=== PATIENT | male | born 1970 | race Caucasian/White ===

== ENCOUNTER 2022-11-12 02:05 | Emergency (ER) | payer OTHER, SELFPAY ==
[2022-11-12 02:13] VITALS: BP 128/97; PULSE 86; RESP 16; TEMP 36.6; O2SAT 98; BMI 28.7
--- NOTE | 2022-11-12 02:24 | ED_ITS ---
HPI - Dental/Oral General Chief complaint: Dental/Oral Stated complaint: DENTAL PAIN Time Seen by Provider: 11/12/22 02:21 Source: patient Mode of arrival: walk-in Limitations: no limitations History of Present Illness HPI Narrative: patient presents complaining of dental pain. ongoing for past week. increased pain this AM. Even rolling on the side of his face it hurts. neg fever or chills. No associated nausea. Teeth map: 1. Onset (ago): day(s) Related Data Allergies Allergy/AdvReac Type Severity Reaction Status Date / Time No Known Drug Allergies Allergy Verified 11/12/22 02:18 Review of Systems ROS Status of ROS 10 or more systems reviewed and unremarkable except as noted in history and below [facility] Medical History (Updated 11/12/22 @ 02:29 by Truman Katz MD) Surgical History (Updated 11/12/22 @ 02:23 by Diana Mcghee) Social History Smoking status: Current every day smoker Exam Constitutional Vital Signs - 24 hr 11/12/22 02:13 Temperature 97.8 F Pulse Rate [Monitor] 86 Respiratory Rate 16 Blood Pressure [Left Arm] 128/97 H Pulse Oximetry 98 Oxygen Delivery Method Room Air Common normals: no apparent distress, average body habitus and oriented x3 HENMT Common normals: normocephalic and head/scalp atraumatic Respiratory Common normals: normal respiratory effort, no retractions, no use of accessory muscles and clear to auscultation bilaterally Cardio Common normals: no JVD, regular rate, regular rhythm, S1 normal heart sound and S2 normal heart sound GI Common normals: Normal to inspection, nondistended, normoactive bowel sounds present, soft to palpation and non-tender Extremity Common normals: normal to inspection and full ROM Neuro Common normals: oriented x3, CN's II-XII intact bilaterally, moves all extremities and no focal motor deficits Psych Appearance: grossly normal Course Vital Signs Vital signs: Vital Signs Temperature 97.8 F 11/12/22 02:13 Pulse Rate 86 11/12/22 02:13 Respiratory Rate 16 11/12/22 02:13 Blood Pressure 128/97 H 11/12/22 02:13 Pulse Oximetry 98 11/12/22 02:13 Oxygen Delivery Method Room Air 11/12/22 02:13 Temperature 97.8 F 11/12/22 02:13 Pulse Rate 86 11/12/22 02:13 Respiratory Rate 16 11/12/22 02:13 Blood Pressure 128/97 H 11/12/22 02:13 Pulse Oximetry 98 11/12/22 02:13 Oxygen Delivery Method Room Air 11/12/22 02:13 MDM - Dental/Oral MDM Narrative Medical decision making narrative: patient presents with worsening dental pain. tooth is mildly loose and is moderately tender. No obvious swelling. Will treat as an early dental abscess with Augmentin and recommend he follow up with his dentist Discharge Plan Discharge Chief Complaint: Dental/Oral Clinical Impression: Dental abscess Patient Disposition: Home, Self-Care Mode of Transportation: Private Vehicle Instructions: Dental Abscess (ED) Additional Instructions: follow up with your dentist this week Stand Alone Forms: Portal Instructions Discharge Date/Time: 11/12/22 02:54
[2022-11-12] MEDS: HYDROCODONE/ACETAMINOPHEN 5-325 MG TABLET 4 TAB PO (02:44)
== END 2022-11-12 02:54 | disposition home or self-care (01) ==
PROVIDERS: Emergency Provider Internal Medicine
DX: K04.7 Periapical abscess without sinus (principal); F17.210 Nicotine dependence, cigarettes, uncomplicated
CPT/HCPCS: 99284

== ENCOUNTER 2022-12-04 22:40 | Emergency (ER) | payer OTHER, SELFPAY ==
[2022-12-04] VITALS (9 sets, daily range): BP systolic 129–146; BP diastolic 82–103; PULSE 94–114; RESP 9–23; O2SAT 96–99; BMI 27.9
--- NOTE | 2022-12-04 22:48 | ED_ITS ---
HPI - Chest Pain General Chief Complaint: Chest Pain Stated Complaint: CHEST PAIN Time Seen by Provider: 12/04/22 22:48 Source: patient Mode of arrival: walk-in Limitations: no limitations History of Present Illness HPI narrative: Patient process the emergency department complaining of chest pain. Patient states he had left-sided chest pain today when he was at work. 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 This is the 2nd time that he has chest pain. Patient states the pain occurred this morning when he got up and lasted 20 minutes and went away on its own. pain is not related to exertion when he was at work he developed it again. He thinks is under a lot of stress at work. He denied any nausea, vomiting, diarrhea, constipation, abdominal pain. He denies any shortness of breath, palpitations, dizziness and lightheadedness. He denies any paresthesias, or weakness. Patient has a history of mini stroke so he takes an aspirin daily. He Related Data Allergies Allergy/AdvReac Type Severity Reaction Status Date / Time No Known Drug Allergies Allergy Verified 11/12/22 02:18 Review of Systems ROS Status of ROS 10 or more systems reviewed and unremarkable except as noted in history and below [facility] Medical History (Updated 12/05/22 @ 01:40 by Rebecca Canicno MD) Surgical History (Updated 11/12/22 @ 02:23 by Diana Mcghee) Social History Smoking status: Current every day smoker Exam Narrative Exam Narrative: Nurses notes and vital signs reviewed and patient is not hypoxic. General: Nontoxic, Well-appearing and in no apparent distress. Skin: Warm, dry, no pallor noted. No Rash Head: Normocephalic, atraumatic. Neck: Supple, non-tender. Eye: Pupils are equal, round and EOMI. No scleral icterus. Ears, Nose, Mouth, and Throat: TM clear, no posterior oropharynx erythema or nasal mucosal hypertrophy, uvula is mid-line Oral mucosa is moist Cardiovascular: Regular Rate and Rhythm without murmur, gallop or rub. Respiratory: No accessory muscle use or respiratory distress. Lungs are clear to auscultation, no wheezing, rales or rhonchi Chest Wall: no tenderness Back: No midline thoracic or lumbar vertebral tenderness. No CVA tenderness Musculoskeletal: normal ROM, no calf or popliteal tenderness, no lower extremity edema/swelling GI: Abdomen is soft, non-distended. Normal bowel sounds. No masses appreciated. No tenderness to palpation. No rebound, guarding, or rigidity noted. Neurological: A&O x4. No cranial nerve dysfunction observed. No truncal ataxia. Moves all extremities. Sensation intact. Psychiatric: Cooperative and interactive. Normal mood and affect. Constitutional Vital Signs, click to edit/add: Last Vital Signs Pulse 96 H 12/05/22 01:40 Resp 16 12/05/22 01:40 BP 152/97 H 12/05/22 01:30 Pulse Ox 79 L 12/05/22 01:40 Course Vital Signs Vital signs: Vital Signs Pulse Rate 114 H 12/04/22 22:44 Respiratory Rate 16 12/04/22 22:44 Blood Pressure 145/100 H 12/04/22 22:44 Pulse Oximetry 98 12/04/22 22:44 Pulse Rate 96 H 12/05/22 01:40 Respiratory Rate 16 12/05/22 01:40 Blood Pressure 152/97 H 12/05/22 01:30 Pulse Oximetry 79 L 12/05/22 01:40 MDM - Chest Pain MDM Narrative Medical decision making narrative: Patient had an IV established. EKG showed a sinus rhythm without any acute ischemic changes. Chest x-ray is unremarkable. Patient had 2 troponins done 2 hours apart which did not show at [facility]. Patient's heart score is 3. Discussed with patient the need to have a stress test done. The patient states he wants to go home and does not want to be hospitalized to have a stress test Center patient. He states he prefers to go home and follow up with his primary care doctor. Patient understands that we have not ruled out heart disease. He is to take an aspirin daily and return to emergency department if any other symptoms develop. At this time the patient is without objective evidence of an acute process requiring hospitalization or inpatient management. The patient has remained hemodynamically stable. No additional indication for emergent studies at this time. I answered all questions. Discussed discharge instructions including standard anticipatory guidance and what should prompt a return to the emergency department, including if they get worse are not getting better or develops any new or concerning symptoms. I've given them specific time frame in which to follow-up, and who to follow-up with. The patient demonstrates understanding. Patient is nontoxic and stable for discharge with outpatient follow-up. This note was created with the assistance of a speech recognition program. Although the intention is to generate documents that actually reflects the content of the visit, no guarantees can be provided that every mistake has been identified and corrected by editing. Differential Diagnosis Differential diagnosis: Likely pneumothorax, atypical chest pain, st elevation myocardial infarction, costochondritis and chest pain Medical Records Data Attestation: I reviewed the patient's medical records. Lab Data Attestation: I reviewed the patient's lab results. Labs: Lab Results 12/04/22 12/05/22 Range/Units 22:56 00:49 WBC 9.9 (4.0-11.0) 10^3/uL RBC 5.18 (4.70-6.10) 10^6/uL Hgb 15.8 (14.0-18.0) g/dL Hct 45.4 (42.0-54.0) % MCV 87.6 (80.0-94.0) fL MCH 30.5 (25.9-34.0) pg MCHC 34.8 (29.9-35.2) g/dL RDW 12.4 (11.0-15.0) % Plt Count 205 (150-450) 10^3/uL MPV 9.6 (9.5-13.5) fL Neut % (Auto) 58.6 (43.0-75.0) % Lymph % (Auto) 32.4 (20.5-60.0) % [place] % (Auto) 6.0 (1.7-12.0) % Eos % (Auto) 2.0 (0.9-7.0) % Baso % (Auto) 0.6 (0.2-2.0) % Neut # (Auto) 5.8 (1.4-6.5) 10^3/uL Lymph # (Auto) 3.2 (1.2-3.8) 10^3/uL [place] # (Auto) 0.6 (0.3-0.8) 10^3/uL Eos # (Auto) 0.2 (0.0-0.7) 10^3/uL Baso # (Auto) 0.1 (0.0-0.1) 10^3/uL Abs Immat Gran (auto) 0.04 H (0.00-0.03) 10^3/uL Imm/Tot Granulo (auto) 0.4 (0.0-0.5) % PT 9.6 (9.0-11.6) sec INR <0.93 APTT 27.7 (22.3-36.2) sec Sodium 141 (136-145) mmol/L Potassium 3.5 (3.5-5.1) mmol/L Chloride 103 (98-107) mmol/L Carbon Dioxide 27.2 (21.0-32.0) mmol/L Anion Gap 14.3 BUN 15.0 (7.0-18.0) mg/dL Creatinine 1.27 (0.70-1.30) mg/dL Est GFR ( Amer) >60 (>=60) Est GFR (Non-Af Amer) 59 L (>=60) BUN/Creatinine Ratio 11.8 Glucose 135 H (74-106) mg/dL Calcium 9.6 (8.5-10.1) mg/dL Total Bilirubin 0.5 (0.2-1.0) mg/dL AST 32 (15-37) U/L ALT 22 (16-63) U/L Alkaline Phosphatase 85 (46-116) U/L Troponin I High Sens 4.3 4.8 (4.0-76.1) pg/mL Total Protein 8.1 (6.4-8.2) g/dL Albumin 4.4 (3.4-5.0) g/dL Globulin 3.7 g/dL Albumin/Globulin Ratio 1.2 ECG Data Attestation: I personally reviewed and interpreted this ECG as follows: Heart Score History: Slightly/Non-Suspicious ECG: Normal Age: >45-<65 years Risk Factors: >3 Risk Factors/ HX of CAD:2 Troponin: <Normal Limit Total Heart Score Recommendations & Risks:: 3 Discharge Plan Discharge Chief Complaint: Chest Pain Clinical Impression: Chest pain Patient Disposition: Home, Self-Care Time of Disposition Decision: 01:39 Condition: Good Mode of Transportation: Private Vehicle Instructions: Chest Pain (ED) Stand Alone Forms: Portal Instructions Referrals: Physician,Non-Staff, MD [Primary Care Provider] - 1 week Discharge Date/Time: 12/05/22 01:50
--- NOTE | 2022-12-04 22:49 | XR_ITS ---
[address] [address] Patient Name: GENE DE LA PAZ MRN: [id number] date: 1970 Sex: M Assigned Patient Location: ER Current Patient Location: ER Accession/Order Number: [id number] Exam Date: 12/04/2022 22:50 Report Date: 12/04/2022 23:07 At the request of: ADAM THOMPSON Procedure: XR chest 1V EXAMINATION: XR chest 1V HISTORY: Chest pain COMPARISON: None. TECHNIQUE: PA and lateral chest x-rays FINDINGS: The lung parenchyma is free of consolidation or infiltrate. No pneumothorax or pleural effusion. The cardiac, mediastinal and hilar contours are normal. The visualized osseous structures exhibit no gross abnormality. XR/XR chest 1V IMPRESSION: No acute cardiopulmonary abnormality. Electronically authenticated by: DAYNA LANDERS Date: 12/04/2022 23:07
--- NOTE | 2022-12-04 22:49 | ECG_ITS ---
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
[2022-12-04 23:05] LABS: Basophils Absolute Auto 0.1 10^3/uL (0.0-0.1); Basophils Percent Auto 0.6 % (0.2-2.0); Eosinophils Absolute Auto 0.2 10^3/uL (0.0-0.7); Hematocrit 45.4 % (42.0-54.0); Hemoglobin 15.8 g/dL (14.0-18.0); Immature Granulocytes Abs Auto 0.04 10^3/uL (0.00-0.03); Immature Granulocytes Pct Auto 0.4 % (0.0-0.5); Lymphocytes Absolute Auto 3.2 10^3/uL (1.2-3.8); Lymphocytes Percent Auto 32.4 % (20.5-60.0); Mean Corpuscular HGB Conc 34.8 g/dL (29.9-35.2); Mean Corpuscular Hemoglobin 30.5 pg (25.9-34.0); Mean Corpuscular Volume 87.6 fL (80.0-94.0); Mean Platelet Volume 9.6 fL (9.5-13.5); Monocytes Absolute Auto 0.6 10^3/uL (0.3-0.8); Neutrophils Absolute Auto 5.8 10^3/uL (1.4-6.5); Neutrophils Percent Auto 58.6 % (43.0-75.0); Platelet Count 205 10^3/uL (150-450); Red Blood Count 5.18 10^6/uL (4.70-6.10); Red Cell Distribution Width 12.4 % (11.0-15.0); White Blood Count 9.9 10^3/uL (4.0-11.0)
[2022-12-04 23:18] LABS: Alanine Aminotransferase 22 U/L (16-63); Albumin Globulin Ratio 1.2; Albumin Level 4.4 g/dL (3.4-5.0); Alkaline Phosphatase 85 U/L (46-116); Anion Gap 14.3; Aspartate Amino Transferase 32 U/L (15-37); BUN Creatinine Ratio 11.8; Bilirubin Total 0.5 mg/dL (0.2-1.0); Calcium 9.6 mg/dL (8.5-10.1); Carbon Dioxide 27.2 mmol/L (21.0-32.0); Chloride 103 mmol/L (98-107); Estimated GFR (African America >60 (>=60); Estimated GFR (Non-African Ame 59 (>=60); Globulin 3.7 g/dL; Glucose 135 mg/dL (74-106); Potassium 3.5 mmol/L (3.5-5.1); Sodium 141 mmol/L (136-145); Total Protein 8.1 g/dL (6.4-8.2)
[2022-12-04 23:19] LABS: Partial Thromboplastin Time 27.7 sec (22.3-36.2); Prothrombin Time 9.6 sec (9.0-11.6)
[2022-12-04 23:20] LABS: INR <0.93
[2022-12-04 23:21] LABS: Troponin I High Sensitivity 4.3 pg/mL (4.0-76.1)
[2022-12-04] MEDS: 0.9 % SODIUM CHLORIDE 1,000 ML 1000 ML IV (23:57)
[2022-12-05] VITALS (12 sets, daily range): BP systolic 144–166; BP diastolic 91–106; PULSE 89–98; RESP 9–23; O2SAT 79–99
[2022-12-05 01:17] LABS: Troponin I High Sensitivity 4.8 pg/mL (4.0-76.1)
--- NOTE | 2022-12-05 06:52 | PC.NURSE ---
recorded oxygen saturation of 79 inaccurate, unstable wave form. oxygen saturation at discharge 98% on room air
== END 2022-12-05 01:50 | disposition home or self-care (01) ==
PROVIDERS: Emergency Provider Emergency Medicine
DX: R07.9 Chest pain, unspecified (principal); F17.210 Nicotine dependence, cigarettes, uncomplicated; Z86.73 Personal history of transient ischemic attack (TIA), and cerebral infarction without residual deficits; Z79.82 Long term (current) use of aspirin
CPT/HCPCS: 36415; 71045; 80053; 84484; 85025; 85610; 85730; 93005; 99285

== ENCOUNTER 2023-03-19 08:47 | Emergency (ER) | payer OTHER, SELFPAY ==
[2023-03-19 08:49] VITALS: BP 159/96; PULSE 88; RESP 18; TEMP 36.8; O2SAT 99; BMI 23.3
--- NOTE | 2023-03-19 10:06 | CT_ITS ---
The [address] [address] Patient Name: GENE DE LA PAZ MRN: [id number] date: 1970 Sex: M Assigned Patient Location: ER Current Patient Location: ER Accession/Order Number: [id number] Exam Date: 03/19/2023 10:27 Report Date: 03/19/2023 11:05 At the request of: YUN TREVIZO Procedure: CT soft tissue neck w con EXAM: CT soft tissue neck w con HISTORY: neck pain COMPARISON: None. TECHNIQUE: CT was obtained through the neck following administration of intravenous contrast material. Sagittal and coronal reformats were acquired. Dose reduction techniques were achieved by using automated exposure control and/or adjustment of mA and/or kV according to patient size and/or use of iterative reconstruction technique. FINDINGS: The airway is patent. Epiglottis is normal. Lung apices are clear. No focal fluid collection within the neck. The bilateral parotid glands, submandibular glands, and thyroid gland are unremarkable. The vasculature within the neck opacifies normally. Stranding about the bilateral carotid bulbs and proximal internal carotid arteries. Stranding and thickening of the left external carotid artery with noncalcified plaque of the left external carotid artery with 57% stenosis The pneumatized portions of the skull are clear. Right maxillary posterior most molar, impacted, with dental caries. There are mild degenerative changes of the spine most notably with posterior disc/osteophyte complex at C4-C5 with at least mild spinal canal stenosis and mild left foraminal stenosis. CT/CT soft tissue neck w con IMPRESSION: 1. Inflammatory stranding about the bilateral carotid arteries most notably at the carotid bifurcation. 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 2. Left external carotid artery 57% stenosis. 3. No focal fluid collection, mass, or lymphadenopathy identified within the neck. 4. Degenerative changes of the cervical spine most notably at C4-C5 with at least mild spinal canal stenosis and mild left foraminal stenosis Electronically authenticated by: MEG SULLIVAN Date: 03/19/2023 11:05
--- NOTE | 2023-03-19 10:06 | ED_ITS ---
HPI - Neck Pain/Injury General Chief Complaint: Neck Pain/Injury Stated Complaint: NECK PAIN Time Seen by Provider: 03/19/23 09:56 Source: patient Mode of arrival: walk-in Limitations: no limitations History of Present Illness HPI Narrative: patient here back pain. He is afraid have a smoker at least one pack cigarettes a day. He's not lost his voice. He is not a shortness of breath or difficulty swallowing. He has no radiculopathy in his upper left extremity. He had a carotid ultrasound done about eight months ago at a different facility. He's not had a CT scan. He's not had any weight loss. He says he can pinpoint the area is in the lower anterior border of the sternocleidomastoid on the left side. He does not any history of thyroid disease. He's otherwise no complaints today. Related Data Home Medications Medication Instructions Recorded Confirmed atorvastatin 40 mg tablet 40 mg PO DAILY 03/19/23 03/19/23 buspirone 10 mg tablet 10 mg PO DAILY 03/19/23 03/19/23 dapagliflozin propanediol 10 mg 10 mg PO DAILY 03/19/23 03/19/23 tablet (Farxiga) gabapentin 600 mg tablet 600 mg PO Q12H PRN pain 03/19/23 03/19/23 hydrochlorothiazide 25 mg tablet 25 mg PO DAILY 03/19/23 03/19/23 insulin aspart U-100 100 unit/mL 7 unit subcut DAILY 03/19/23 03/19/23 subcutaneous solution insulin glargine 100 unit/mL (3 unit subcut .meals 03/19/23 mL) subcutaneous pen (Lantus Solostar U-100 Insulin) lisinopril 5 mg tablet 5 mg PO DAILY 03/19/23 03/19/23 metoprolol succinate 25 mg 25 mg PO DAILY 03/19/23 03/19/23 tablet,extended release 24 hr ropinirole 0.25 mg tablet 0.25 mg PO DAILY 03/19/23 03/19/23 tizanidine 4 mg tablet 4 mg PO DAILY PRN pain 03/19/23 03/19/23 Allergies Allergy/AdvReac Type Severity Reaction Status Date / Time No Known Drug Allergies Allergy Verified 11/12/22 02:18 [facility] Medical History (Updated 11/07/23 @ 12:19 by Sathish Justin MD) Diabetes ?E11.9 - Type 2 diabetes mellitus without complications (ICD-10) Surgical History (Updated 11/12/22 @ 02:23 by Diana Mcghee) History of appendectomy ?Z90.49 - Acquired absence of other specified parts of digestive tract (ICD- 10) History of cholecystectomy ?Z90.49 - Acquired absence of other specified parts of digestive tract (ICD- 10) History of kidney surgery ?Z98.890 - Other specified postprocedural states (ICD-10) Social History Smoking status: Current every day smoker Exam Constitutional Vital Signs, click to edit/add: Last Vital Signs Temp 98.2 F 03/19/23 08:49 Pulse 88 03/19/23 08:49 Resp 18 03/19/23 08:49 BP 159/96 H 03/19/23 08:49 Pulse Ox 99 03/19/23 08:49 O2 Del Method Room Air 03/19/23 08:49 Course Vital Signs Vital signs: Vital Signs Temperature 98.2 F 03/19/23 08:49 Pulse Rate 88 03/19/23 08:49 Respiratory Rate 18 03/19/23 08:49 Blood Pressure 159/96 H 03/19/23 08:49 Pulse Oximetry 99 03/19/23 08:49 Oxygen Delivery Method Room Air 03/19/23 08:49 Temperature 98.2 F 03/19/23 08:49 Pulse Rate 88 03/19/23 08:49 Respiratory Rate 18 03/19/23 08:49 Blood Pressure 159/96 H 03/19/23 08:49 Pulse Oximetry 99 03/19/23 08:49 Oxygen Delivery Method Room Air 03/19/23 08:49 Discharge Plan Discharge Chief Complaint: Neck Pain/Injury 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 Patient Disposition: Home, Self-Care Time of Disposition Decision: 12:19 Prescriptions / Home Meds: No Action atorvastatin 40 mg tablet 40 mg PO DAILY buspirone 10 mg tablet 10 mg PO DAILY Farxiga 10 mg tablet 10 mg PO DAILY gabapentin 600 mg tablet 600 mg PO Q12H PRN (Reason: pain) hydrochlorothiazide 25 mg tablet 25 mg PO DAILY lisinopril 5 mg tablet 5 mg PO DAILY metoprolol succinate 25 mg tablet extended release 24 hr 25 mg PO DAILY ropinirole 0.25 mg tablet 0.25 mg PO DAILY tizanidine 4 mg tablet 4 mg PO DAILY PRN (Reason: pain) insulin glargine [Lantus Solostar U-100 Insulin] 100 unit/mL (3 mL) insulin pen SUBCUT .meals insulin aspart U-100 100 unit/mL solution 7 unit subcut DAILY Instructions: Chronic Neck Pain (DC) Additional Instructions: use [id number] NSAIDs on a limited basis. Follow-up to primary care doctor with your CT report today for vascular referral in [place] Stand Alone Forms: Portal Instructions Referrals: Physician,Non-Staff, MD [Primary Care Provider] - 1 week Discharge Date/Time: 03/19/23 12:25
== END 2023-03-19 12:25 | disposition home or self-care (01) ==
PROVIDERS: Emergency Provider Emergency Medicine Emergency Medical Services
DX: M47.812 Spondylosis without myelopathy or radiculopathy, cervical region (principal); E11.9 Type 2 diabetes mellitus without complications; F17.210 Nicotine dependence, cigarettes, uncomplicated; Z79.899 Other long term (current) drug therapy; Z79.4 Long term (current) use of insulin; Z90.49 Acquired absence of other specified parts of digestive tract; Z98.890 Other specified postprocedural states
CPT/HCPCS: 70491; 99285; Q9967

== ENCOUNTER 2023-04-23 15:08 | Emergency (ER) | payer OTHER, SELFPAY ==
[2023-04-23] VITALS (8 sets, daily range): BP systolic 109–139; BP diastolic 76–95; PULSE 83–101; RESP 13–19; TEMP 36.9; O2SAT 98–100; BMI 25.8
--- NOTE | 2023-04-23 15:22 | ECG_ITS ---
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
--- NOTE | 2023-04-23 15:23 | ED_ITS ---
HPI - General Adult General Chief complaint: Nausea/Vomiting/Diarrhea Stated complaint: FLU LIKE SYMPTOMS Time Seen by Provider: 04/23/23 15:21 Source: patient Mode of arrival: walk-in Limitations: no limitations History of Present Illness HPI narrative: Patient is a 52-year-old male who presents to the emergency department for 3-day history of flulike illness. Patient denies any fevers but has had cough, vomiti ng and diarrhea. He reports some cramping in the mid upper abdomen. He states he has been feeling lightheaded which prompted him to come to the ER. No syncope. He states he has had some burning with urination for the last several days and was concerned because he only has 1 kidney. No medications taken prior to arrival. No sick contacts in the home. Related Data Home Medications Medication Instructions Recorded Confirmed atorvastatin 40 mg tablet 40 mg PO DAILY 03/19/23 03/19/23 buspirone 10 mg tablet 10 mg PO DAILY 03/19/23 03/19/23 dapagliflozin propanediol 10 mg 10 mg PO DAILY 03/19/23 03/19/23 tablet (Farxiga) gabapentin 600 mg tablet 600 mg PO Q12H PRN pain 03/19/23 03/19/23 hydrochlorothiazide 25 mg tablet 25 mg PO DAILY 03/19/23 03/19/23 insulin aspart U-100 100 unit/mL 7 unit subcut DAILY 03/19/23 03/19/23 subcutaneous solution insulin glargine 100 unit/mL (3 unit subcut .meals 03/19/23 mL) subcutaneous pen (Lantus Solostar U-100 Insulin) lisinopril 5 mg tablet 5 mg PO DAILY 03/19/23 03/19/23 metoprolol succinate 25 mg 25 mg PO DAILY 03/19/23 03/19/23 tablet,extended release 24 hr ropinirole 0.25 mg tablet 0.25 mg PO DAILY 03/19/23 03/19/23 tizanidine 4 mg tablet 4 mg PO DAILY PRN pain 03/19/23 03/19/23 Previous Rx's Medication Instructions Recorded hyoscyamine sulfate 0.125 mg 0.125 mg PO Q6H PRN abdominal pain 04/23/23 tablet (Levsin) #12 tabs ondansetron 4 mg disintegrating 4 mg PO Q6H PRN nausea and 04/23/23 tablet vomiting #12 tabs Allergies Allergy/AdvReac Type Severity Reaction Status Date / Time No Known Drug Allergies Allergy Verified 04/23/23 15:14 Review of Systems ROS Constitutional Denies: fever or chills Ears, nose, mouth, and throat Denies: throat pain or nasal congestion Cardiovascular Denies: chest pain Respiratory Reports: cough; Denies: shortness of breath Gastrointestinal Reports: abdominal pain, nausea, vomiting and diarrhea Genitourinary Reports: painful urination; Denies: urinary frequency Musculoskeletal Denies: back pain Integumentary/Breast Denies: rash Neurological Denies: headache PFSH PFSH Medical History (Updated 04/23/23 @ 17:18 by LILIANE Hassan) Diabetes ?E11.9 - Type 2 diabetes mellitus without complications (ICD-10) Surgical History (Updated 11/12/22 @ 02:23 by Diana Mgchee) History of kidney surgery ?Z98.890 - Other specified postprocedural states (ICD-10) History of cholecystectomy ?Z90.49 - Acquired absence of other specified parts of digestive tract (ICD- 10) History of appendectomy ?Z90.49 - Acquired absence of other specified parts of digestive tract (ICD- 10) Social History Smoking status: Current every day smoker Exam Narrative Exam Narrative: Gen.: Awake, alert, in no distress Head: Normocephalic, atraumatic ENT: Moist mucous membranes Respiratory: No respiratory distress, lungs clear bilaterally Cardio: Regular rate and rhythm Gastrointestinal: Abdomen is soft, nondistended and nontender to palpation Extremities: Moves extremities equally Psych: Normal mood and affect Neuro: No focal neuro deficit Skin: Warm, dry, intact Constitutional Vital Signs, click to edit/add: Last Vital Signs Temp 98.4 F 04/23/23 15:14 Pulse 83 04/23/23 17:15 Resp 15 04/23/23 17:15 BP 139/86 04/23/23 17:00 Pulse Ox 98 04/23/23 17:15 O2 Del Method Room Air 04/23/23 15:14 Course Vital Signs Vital signs: Vital Signs Temperature 98.4 F 04/23/23 15:14 Pulse Rate 101 H 04/23/23 15:14 Respiratory Rate 18 04/23/23 15:14 Blood Pressure 127/95 H 04/23/23 15:14 Pulse Oximetry 99 04/23/23 15:14 Oxygen Delivery Method Room Air 04/23/23 15:14 Temperature 98.4 F 04/23/23 15:14 Pulse Rate 83 04/23/23 17:15 Respiratory Rate 15 04/23/23 17:15 Blood Pressure 139/86 04/23/23 17:00 Pulse Oximetry 98 04/23/23 17:15 Oxygen Delivery Method Room Air 04/23/23 15:14 Medical Decision Making MDM Narrative Medical decision making narrative: Patient medicated with IV fluids, Zofran, Levsin. He had no episodes of emesis in the ER. Vital signs within normal limits. EKG, troponin were performed as the patient was complaining of lightheadedness. This shows no evidence of acute process, urine specimen is unremarkable and abdominal x-rays with no evidence of acute cardiopulmonary or abdominal abnormalities. Patient will be discharged home with Zofran, Levsin to follow-up with PCP. Return to the ER if symptoms c hange or worsen. Medical Records Medical records reviewed: Yes I reviewed the patient's medical records Lab Data Lab results reviewed: Yes I reviewed the patient's lab results Labs: Lab Results 04/23/23 04/23/23 Range/Units 15:25 16:56 WBC 9.8 (4.0-11.0) 10^3/uL RBC 5.89 (4.70-6.10) 10^6/uL Hgb 17.6 (14.0-18.0) g/dL Hct 51.3 (42.0-54.0) % MCV 87.1 (80.0-94.0) fL MCH 29.9 (25.9-34.0) pg MCHC 34.3 (29.9-35.2) g/dL RDW 12.2 (11.0-15.0) % Plt Count 187 (150-450) 10^3/uL MPV 10.4 (9.5-13.5) fL Neut % (Auto) 62.2 (43.0-75.0) % Lymph % (Auto) 28.5 (20.5-60.0) % [place] % (Auto) 6.0 (1.7-12.0) % Eos % (Auto) 2.5 (0.9-7.0) % Baso % (Auto) 0.6 (0.2-2.0) % Neut # (Auto) 6.1 (1.4-6.5) 10^3/uL Lymph # (Auto) 2.8 (1.2-3.8) 10^3/uL [place] # (Auto) 0.6 (0.3-0.8) 10^3/uL Eos # (Auto) 0.3 (0.0-0.7) 10^3/uL Baso # (Auto) 0.1 (0.0-0.1) 10^3/uL Abs Immat Gran (auto) 0.02 (0.00-0.03) 10^3/uL Imm/Tot Granulo (auto) 0.2 (0.0-0.5) % Sodium 133 L (136-145) mmol/L Potassium 4.0 (3.5-5.1) mmol/L Chloride 96 L (98-107) mmol/L Carbon Dioxide 26.6 (21.0-32.0) mmol/L Anion Gap 14.4 BUN 24.0 H (7.0-18.0) mg/dL Creatinine 1.44 H (0.70-1.30) mg/dL Est GFR ( Amer) >60 (>=60) Est GFR (Non-Af Amer) 51 L (>=60) BUN/Creatinine Ratio 16.7 Glucose 313 H (74-106) mg/dL Lactate 2.0 (0.4-2.0) mmol/L Calcium 9.8 (8.5-10.1) mg/dL Total Bilirubin 0.5 (0.2-1.0) mg/dL AST 22 (15-37) U/L ALT 47 (16-63) U/L Alkaline Phosphatase 111 (46-116) U/L Troponin I High Sens 4.8 (4.0-76.1) pg/mL Total Protein 8.4 H (6.4-8.2) g/dL Albumin 4.2 (3.4-5.0) g/dL Globulin 4.2 g/dL Albumin/Globulin Ratio 1.0 Lipase 113.0 H (16.0-77.0) U/L Urine Color Yellow (YELLOW) Urine Clarity Clear (CLEAR) Urine pH 6.0 (5.0-9.0) Ur Specific [place] <=1.005 A (1.005-1.025) Urine Protein Trace (NEG/TRACE) mg/dL Urine Glucose (UA) >=1000 A (NEGATIVE) mg/dL Urine Ketones Negative (NEGATIVE) mg/dL Urine Occult Blood Negative (NEGATIVE) Urine Nitrite Negative (NEGATIVE) Urine Bilirubin Negative (NEGATIVE) Urine Urobilinogen 0.2 (0.2-1.0) EU/dL Ur Leukocyte Esterase Negative (NEGATIVE) Imaging Data Abdominal x-ray: Attestation: I have reviewed the pertinent imaging results. Radiologist's impression: Procedure: XR acute abdomen series EXAMINATION: XR acute abdomen series HISTORY: Cough, vomiting and diarrhea COMPARISON: None. TECHNIQUE: Portable chest FINDINGS: The lung parenchyma is free of consolidation or infiltrate. No pneumothorax or pleural effusion. The cardiac, mediastinal and hilar contours are normal. The bowel gas pattern is nonobstructed. No free intraperitoneal air or visualized intra-abdominal calcification. Right-sided abdomen surgical clips. The visualized osseous structures exhibit no gross abnormality. IMPRESSION: No acute abnormality. Electronically authenticated by: DAYNA LANDERS Date: 04/23/2023 16:42 ECG Data Attestation: I personally reviewed and interpreted this ECG as follows: (Normal sinus rhythm at a rate of 90, no acute ST elevation or ectopy. EKG reviewed by attending physician.) Discharge Plan Discharge Chief Complaint: Nausea/Vomiting/Diarrhea Clinical Impression: Nausea vomiting and diarrhea, Mild dehydration Patient Disposition: Home, Self-Care Time of Disposition Decision: 17:18 Condition: Good Prescriptions / Home Meds: New hyoscyamine sulfate [Levsin] 0.125 mg tablet 0.125 mg PO Q6H PRN (Reason: abdominal pain) Qty: 12 0RF ondansetron 4 mg tablet,disintegrating 4 mg PO Q6H PRN (Reason: nausea and vomiting) Qty: 12 0RF No Action atorvastatin 40 mg tablet 40 mg PO DAILY buspirone 10 mg tablet 10 mg PO DAILY Farxiga 10 mg tablet 10 mg PO DAILY gabapentin 600 mg tablet 600 mg PO Q12H PRN (Reason: pain) hydrochlorothiazide 25 mg tablet 25 mg PO DAILY lisinopril 5 mg tablet 5 mg PO DAILY metoprolol succinate 25 mg tablet extended release 24 hr 25 mg PO DAILY ropinirole 0.25 mg tablet 0.25 mg PO DAILY tizanidine 4 mg tablet 4 mg PO DAILY PRN (Reason: pain) insulin glargine [Lantus Solostar U-100 Insulin] 100 unit/mL (3 mL) insulin pen SUBCUT .meals insulin aspart U-100 100 unit/mL solution 7 unit subcut DAILY Instructions: Dehydration (ED), Acute Nausea and Vomiting (ED), Acute Diarrhea (ED) Stand Alone Forms: Portal Instructions Referrals: Physician,Non-Staff, MD [Primary Care Provider] - 1 week Discharge Date/Time: 04/23/23 17:32
--- NOTE | 2023-04-23 15:29 | XR_ITS ---
The [address] [address] Patient Name: GENE DE LA PAZ MRN: [id number] date: 1970 Sex: M Assigned Patient Location: ER Current Patient Location: ER Accession/Order Number: [id number] Exam Date: 04/23/2023 16:00 Report Date: 04/23/2023 16:42 At the request of: KATHERINE CASAS Procedure: XR acute abdomen series EXAMINATION: XR acute abdomen series HISTORY: Cough, vomiting and diarrhea COMPARISON: None. TECHNIQUE: Portable chest FINDINGS: The lung parenchyma is free of consolidation or infiltrate. No pneumothorax or pleural effusion. The cardiac, mediastinal and hilar contours are normal. The bowel gas pattern is nonobstructed. No free intraperitoneal air or visualized intra-abdominal calcification. Right-sided abdomen surgical clips. The visualized osseous structures exhibit no gross abnormality. XR/XR acute abdomen series IMPRESSION: No acute abnormality. Electronically authenticated by: DAYNA LANDERS Date: 04/23/2023 16:42
[2023-04-23 15:37] LABS: Basophils Absolute Auto 0.1 10^3/uL (0.0-0.1); Basophils Percent Auto 0.6 % (0.2-2.0); Eosinophils Absolute Auto 0.3 10^3/uL (0.0-0.7); Eosinophils Percent Auto 2.5 % (0.9-7.0); Hematocrit 51.3 % (42.0-54.0); Hemoglobin 17.6 g/dL (14.0-18.0); Immature Granulocytes Abs Auto 0.02 10^3/uL (0.00-0.03); Immature Granulocytes Pct Auto 0.2 % (0.0-0.5); Lymphocytes Absolute Auto 2.8 10^3/uL (1.2-3.8); Lymphocytes Percent Auto 28.5 % (20.5-60.0); Mean Corpuscular HGB Conc 34.3 g/dL (29.9-35.2); Mean Corpuscular Hemoglobin 29.9 pg (25.9-34.0); Mean Corpuscular Volume 87.1 fL (80.0-94.0); Mean Platelet Volume 10.4 fL (9.5-13.5); Monocytes Absolute Auto 0.6 10^3/uL (0.3-0.8); Neutrophils Absolute Auto 6.1 10^3/uL (1.4-6.5); Neutrophils Percent Auto 62.2 % (43.0-75.0); Platelet Count 187 10^3/uL (150-450); Red Blood Count 5.89 10^6/uL (4.70-6.10); Red Cell Distribution Width 12.2 % (11.0-15.0); White Blood Count 9.8 10^3/uL (4.0-11.0)
[2023-04-23] MEDS: 0.9 % SODIUM CHLORIDE 1,000 ML 999 ML IV (15:50)
[2023-04-23] MEDS: ONDANSETRON PF 4 MG/2 ML VIAL IV (15:50)
[2023-04-23] MEDS: HYOSCYAMINE SULFATE 0.125 MG TAB.SUBL SL (15:50)
[2023-04-23 16:00] LABS: Alanine Aminotransferase 47 U/L (16-63); Albumin Level 4.2 g/dL (3.4-5.0); Alkaline Phosphatase 111 U/L (46-116); Anion Gap 14.4; Aspartate Amino Transferase 22 U/L (15-37); BUN Creatinine Ratio 16.7; Bilirubin Total 0.5 mg/dL (0.2-1.0); Calcium 9.8 mg/dL (8.5-10.1); Carbon Dioxide 26.6 mmol/L (21.0-32.0); Chloride 96 mmol/L (98-107); Estimated GFR (African America >60 (>=60); Estimated GFR (Non-African Ame 51 (>=60); Globulin 4.2 g/dL; Glucose 313 mg/dL (74-106); Sodium 133 mmol/L (136-145); Total Protein 8.4 g/dL (6.4-8.2); Troponin I High Sensitivity 4.8 pg/mL (4.0-76.1)
[2023-04-23 17:03] LABS: Bilirubin Urine NEGATIVE (NEGATIVE); Blood Urine NEGATIVE (NEGATIVE); Clarity Urine CLEAR (CLEAR); Color Urine YELLOW (YELLOW); Glucose Urine UA >=1000 mg/dL (NEGATIVE); Ketones Urine NEGATIVE (NEGATIVE); Leukocyte Esterase Urine NEGATIVE (NEGATIVE); Nitrite Urine NEGATIVE (NEGATIVE); Protein Urine TRACE mg/dL (NEG/TRACE); Specific Gravity Urine <=1.005 (1.005-1.025); Urobilinogen Urine 0.2 EU/dL (0.2-1.0)
[2023-04-23 17:04] LABS: Urine Microscopic Indicated NO
== END 2023-04-23 17:32 | disposition home or self-care (01) ==
PROVIDERS: Physician Assistant; Emergency Provider Emergency Medicine
DX: E86.0 Dehydration (principal); R11.2 Nausea with vomiting, unspecified; E11.9 Type 2 diabetes mellitus without complications; Z79.4 Long term (current) use of insulin; R19.7 Diarrhea, unspecified; Z79.899 Other long term (current) drug therapy; Z90.49 Acquired absence of other specified parts of digestive tract; Z90.5 Acquired absence of kidney; F17.200 Nicotine dependence, unspecified, uncomplicated; R42 Dizziness and giddiness
CPT/HCPCS: 36415; 74022; 80053; 81003; 83605; 83690; 84484; 85025; 93005; 96374; 99285

== ENCOUNTER 2023-04-25 16:11 | Emergency (ER) | payer OTHER, SELFPAY ==
[2023-04-25 16:19] VITALS: BP 124/92; PULSE 101; RESP 18; TEMP 36.6; O2SAT 98; BMI 25.1
--- NOTE | 2023-04-25 16:27 | ECG_ITS ---
The [facility] Test Date: 2023-04-25 Pat Name: GENE DE LA PAZ Department: Room: - Gender: Male [employer]: : 1970 Requested By: Order Number: [id number] Reading MD: NATIVIDAD VANG Measurements Intervals [place] Rate: 101 P: 46 [place]: 170 QRS: -13 QRSD: 84 T: 66 QT: 326 QTc: 384 Interpretive Statements 1120 Sinus tachycardia 3114 Cannot rule out anterior myocardial infarction, age undetermined 3634 Inferior myocardial infarction, age undetermined 8102 Low QRS voltage in chest leads 9150 abnormal ECG Compared to ECG 04/23/2023 15:34:09 Electronically Signed On 04-26-2023 7:14:09 EST by NATIVIDAD VANG
--- NOTE | 2023-04-25 16:28 | ED_ITS ---
HPI - General Adult General Chief complaint: Recheck/Abnormal Lab/Rx Stated complaint: hyperglycemia 446 at docs Time Seen by Provider: 04/25/23 16:13 Source: patient Mode of arrival: walk-in Limitations: no limitations History of Present Illness HPI narrative: Patient is an insulin-dependent diabetic 52-year-old male who presents to the ER for high blood sugar that was noted on a blood draw approximately 8 hours ago. Patient states he received a phone call from his PCPs office in [place] and was referred to the emergency department. He was seen in this emergency room 2 days ago for vomiting and diarrhea. He states those symptoms have resolved, he does still feel mildly lightheaded. He has had no other focal medical complaints. He does not check his blood sugar at home because he states he ran out of test strips. His PCP office did not adjust any medications or prescribe anything for him, he states he was just told to come to the ER. Related Data Home Medications Medication Instructions Recorded Confirmed atorvastatin 40 mg tablet 40 mg PO DAILY 03/19/23 03/19/23 buspirone 10 mg tablet 10 mg PO DAILY 03/19/23 03/19/23 dapagliflozin propanediol 10 mg 10 mg PO DAILY 03/19/23 03/19/23 tablet (Farxiga) gabapentin 600 mg tablet 600 mg PO Q12H PRN pain 03/19/23 03/19/23 hydrochlorothiazide 25 mg tablet 25 mg PO DAILY 03/19/23 03/19/23 insulin aspart U-100 100 unit/mL 7 unit subcut DAILY 03/19/23 03/19/23 subcutaneous solution insulin glargine 100 unit/mL (3 unit subcut .meals 03/19/23 mL) subcutaneous pen (Lantus Solostar U-100 Insulin) lisinopril 5 mg tablet 5 mg PO DAILY 03/19/23 03/19/23 metoprolol succinate 25 mg 25 mg PO DAILY 03/19/23 03/19/23 tablet,extended release 24 hr ropinirole 0.25 mg tablet 0.25 mg PO DAILY 03/19/23 03/19/23 tizanidine 4 mg tablet 4 mg PO DAILY PRN pain 03/19/23 03/19/23 Previous Rx's Medication Instructions Recorded hyoscyamine sulfate 0.125 mg 0.125 mg PO Q6H PRN abdominal pain 04/23/23 tablet (Levsin) #12 tabs ondansetron 4 mg disintegrating 4 mg PO Q6H PRN nausea and 04/23/23 tablet vomiting #12 tabs Allergies Allergy/AdvReac Type Severity Reaction Status Date / Time No Known Drug Allergies Allergy Verified 04/23/23 15:14 Review of Systems ROS Constitutional Denies: fever or chills Eyes Denies: change in vision Ears, nose, mouth, and throat Denies: throat pain Cardiovascular Denies: chest pain Respiratory Denies: shortness of breath or cough Gastrointestinal Denies: nausea or vomiting Musculoskeletal Denies: back pain or neck pain Integumentary/Breast Denies: rash Neurological Denies: headache PFSH PFSH Medical History (Updated 04/25/23 @ 17:47 by LILIANE Hassan) Diabetes ?E11.9 - Type 2 diabetes mellitus without complications (ICD-10) Surgical History (Updated 11/12/22 @ 02:23 by Diana Mcghee) History of kidney surgery ?Z98.890 - Other specified postprocedural states (ICD-10) History of cholecystectomy ?Z90.49 - Acquired absence of other specified parts of digestive tract (ICD- 10) History of appendectomy ?Z90.49 - Acquired absence of other specified parts of digestive tract (ICD- 10) Social History Smoking status: Current every day smoker Exam Narrative Exam Narrative: Gen.: Awake, alert, in no distress Head: Normocephalic, atraumatic ENT: Moist mucous membranes Respiratory: No respiratory distress, lungs clear bilaterally Cardio: Regular rate and rhythm Gastrointestinal: Abdomen is soft, nondistended and nontender to palpation Extremities: Moves extremities equally Psych: Normal mood and affect Neuro: No focal neuro deficit Skin: Warm, dry, intact Constitutional Vital Signs, click to edit/add: Last Vital Signs Temp 97.9 F 04/25/23 16:19 Pulse 101 H 04/25/23 16:19 Resp 18 04/25/23 16:19 BP 124/92 H 04/25/23 16:19 Pulse Ox 98 04/25/23 16:19 Course Vital Signs Vital signs: Vital Signs Temperature 97.9 F 04/25/23 16:19 Pulse Rate 101 H 04/25/23 16:19 Respiratory Rate 18 12/14/23 16:19 Blood Pressure 124/92 H 04/25/23 16:19 Pulse Oximetry 98 04/25/23 16:19 Temperature 97.9 F 04/25/23 16:19 Pulse Rate 101 H 04/25/23 16:19 Respiratory Rate 18 04/25/23 16:19 Blood Pressure 124/92 H 04/25/23 16:19 Pulse Oximetry 98 04/25/23 16:19 Medical Decision Making MDM Narrative Medical decision making narrative: Patient is treated with IV fluids in the ER, 15 units of regular insulin were given. Initial blood sugars over 600, repeat after insulin administration is 450. Patient with no evidence of DKA. Lab studies have improved and his electrolytes are within normal limits today versus his stay 2 days ago. He has had resolution of vomiting and diarrhea. He will be discharged home after reevaluation by attending physician to follow-up with PCP for insulin adjustment, return to the ER if symptoms change or worsen. Medical Records Medical records reviewed: Yes I reviewed the patient's medical records Lab Data Lab results reviewed: Yes I reviewed the patient's lab results Labs: Lab Results 04/25/23 04/25/23 Range/Units 16:33 17:33 WBC 7.8 (4.0-11.0) 10^3/uL RBC 5.38 (4.70-6.10) 10^6/uL Hgb 16.3 (14.0-18.0) g/dL Hct 47.0 (42.0-54.0) % MCV 87.4 (80.0-94.0) fL MCH 30.3 (25.9-34.0) pg MCHC 34.7 (29.9-35.2) g/dL RDW 12.3 (11.0-15.0) % Plt Count 187 (150-450) 10^3/uL MPV 10.1 (9.5-13.5) fL Neut % (Auto) 52.0 (43.0-75.0) % Lymph % (Auto) 38.3 (20.5-60.0) % [place] % (Auto) 6.3 (1.7-12.0) % Eos % (Auto) 2.5 (0.9-7.0) % Baso % (Auto) 0.6 (0.2-2.0) % Neut # (Auto) 4.0 (1.4-6.5) 10^3/uL Lymph # (Auto) 3.0 (1.2-3.8) 10^3/uL [place] # (Auto) 0.5 (0.3-0.8) 10^3/uL Eos # (Auto) 0.2 (0.0-0.7) 10^3/uL Baso # (Auto) 0.1 (0.0-0.1) 10^3/uL Abs Immat Gran (auto) 0.02 (0.00-0.03) 10^3/uL Imm/Tot Granulo (auto) 0.3 (0.0-0.5) % Sodium 139 (136-145) mmol/L Potassium 4.2 (3.5-5.1) mmol/L Chloride 100 (98-107) mmol/L Carbon Dioxide 29.2 (21.0-32.0) mmol/L Anion Gap 14.0 BUN 26.0 H (7.0-18.0) mg/dL Creatinine 1.49 H (0.70-1.30) mg/dL Est GFR ( Amer) 60 (>=60) Est GFR (Non-Af Amer) 49 L (>=60) BUN/Creatinine Ratio 17.4 Glucose 617 H* (74-106) mg/dL Lactate 1.6 (0.4-2.0) mmol/L Calcium 9.0 (8.5-10.1) mg/dL Magnesium 2.2 (1.8-2.4) mg/dL Total Bilirubin 0.4 (0.2-1.0) mg/dL AST 15 (15-37) U/L ALT 41 (16-63) U/L Alkaline Phosphatase 116 (46-116) U/L Troponin I High Sens 4.3 (4.0-76.1) pg/mL Total Protein 7.4 (6.4-8.2) g/dL Albumin 3.6 (3.4-5.0) g/dL Globulin 3.8 g/dL Albumin/Globulin Ratio 0.9 TSH 0.986 (0.358-3.740) uIU/mL Acetone, Qual Negative (NEGATIVE) POC Glucose 451 H (74-106) mg/dL ECG Data Attestation: I personally reviewed and interpreted this ECG as follows: (Sinus tachycardia at a of 101, no acute ST elevation, no ectopy. EKG reviewed by attending physician) Discharge Plan Discharge Chief Complaint: Recheck/Abnormal Lab/Rx Clinical Impression: Hyperglycemia Patient Disposition: Home, Self-Care Time of Disposition Decision: 17:47 Condition: Good Prescriptions / Home Meds: No Action hyoscyamine sulfate [Levsin] 0.125 mg tablet 0.125 mg PO Q6H PRN (Reason: abdominal pain) Qty: 12 0RF ondansetron 4 mg tablet,disintegrating 4 mg PO Q6H PRN (Reason: nausea and vomiting) Qty: 12 0RF atorvastatin 40 mg tablet 40 mg PO DAILY buspirone 10 mg tablet 10 mg PO DAILY Farxiga 10 mg tablet 10 mg PO DAILY gabapentin 600 mg tablet 600 mg PO Q12H PRN (Reason: pain) hydrochlorothiazide 25 mg tablet 25 mg PO DAILY lisinopril 5 mg tablet 5 mg PO DAILY metoprolol succinate 25 mg tablet extended release 24 hr 25 mg PO DAILY ropinirole 0.25 mg tablet 0.25 mg PO DAILY tizanidine 4 mg tablet 4 mg PO DAILY PRN (Reason: pain) insulin glargine [Lantus Solostar U-100 Insulin] 100 unit/mL (3 mL) insulin pen SUBCUT .meals insulin aspart U-100 100 unit/mL solution 7 unit subcut DAILY Instructions: Diabetic Hyperglycemia (ED) Stand Alone Forms: Portal Instructions Referrals: Physician,Non-Staff, MD [Primary Care Provider] - 1 week
[2023-04-25] MEDS: 0.9 % SODIUM CHLORIDE 1,000 ML 999 ML IV (16:38)
[2023-04-25] MEDS: INSULIN REGULAR 300 UNITS/3 ML 15 UNIT SUBQ (16:39)
[2023-04-25 16:41] LABS: Basophils Absolute Auto 0.1 10^3/uL (0.0-0.1); Basophils Percent Auto 0.6 % (0.2-2.0); Eosinophils Absolute Auto 0.2 10^3/uL (0.0-0.7); Eosinophils Percent Auto 2.5 % (0.9-7.0); Hemoglobin 16.3 g/dL (14.0-18.0); Immature Granulocytes Abs Auto 0.02 10^3/uL (0.00-0.03); Immature Granulocytes Pct Auto 0.3 % (0.0-0.5); Lymphocytes Percent Auto 38.3 % (20.5-60.0); Mean Corpuscular HGB Conc 34.7 g/dL (29.9-35.2); Mean Corpuscular Hemoglobin 30.3 pg (25.9-34.0); Mean Corpuscular Volume 87.4 fL (80.0-94.0); Mean Platelet Volume 10.1 fL (9.5-13.5); Monocytes Absolute Auto 0.5 10^3/uL (0.3-0.8); Monocytes Percent Auto 6.3 % (1.7-12.0); Platelet Count 187 10^3/uL (150-450); Red Blood Count 5.38 10^6/uL (4.70-6.10); Red Cell Distribution Width 12.3 % (11.0-15.0); White Blood Count 7.8 10^3/uL (4.0-11.0)
[2023-04-25 16:47] LABS: Acetone NEGATIVE (NEGATIVE)
[2023-04-25 16:59] LABS: Lactate/Lactic Acid 1.6 mmol/L (0.4-2.0)
[2023-04-25 17:02] LABS: Alanine Aminotransferase 41 U/L (16-63); Albumin Globulin Ratio 0.9; Albumin Level 3.6 g/dL (3.4-5.0); Alkaline Phosphatase 116 U/L (46-116); Aspartate Amino Transferase 15 U/L (15-37); BUN Creatinine Ratio 17.4; Bilirubin Total 0.4 mg/dL (0.2-1.0); Carbon Dioxide 29.2 mmol/L (21.0-32.0); Chloride 100 mmol/L (98-107); Estimated GFR (African America 60 (>=60); Estimated GFR (Non-African Ame 49 (>=60); Globulin 3.8 g/dL; Magnesium 2.2 mg/dL (1.8-2.4); Potassium 4.2 mmol/L (3.5-5.1); Sodium 139 mmol/L (136-145); Total Protein 7.4 g/dL (6.4-8.2); Troponin I High Sensitivity 4.3 pg/mL (4.0-76.1)
[2023-04-25 17:03] LABS: Glucose 617 mg/dL (74-106)
[2023-04-25 17:08] LABS: Thyroid Stimulating Hormone 0.986 uIU/mL (0.358-3.740)
[2023-04-25 17:35] LABS: Glucometer 451 mg/dL (74-106)
== END 2023-04-25 17:59 | disposition home or self-care (01) ==
PROVIDERS: Physician Assistant; Emergency Provider Emergency Medicine Emergency Medical Services
DX: E11.65 Type 2 diabetes mellitus with hyperglycemia (principal); Z79.899 Other long term (current) drug therapy; Z79.4 Long term (current) use of insulin; Z90.49 Acquired absence of other specified parts of digestive tract; Z98.890 Other specified postprocedural states; F17.210 Nicotine dependence, cigarettes, uncomplicated
CPT/HCPCS: 36415; 80053; 82009; 82948; 83605; 83735; 84443; 84484; 85025; 93005; 96360; 99285

== ENCOUNTER 2023-08-09 01:44 | Emergency (ER) | payer OTHER, SELFPAY ==
[2023-08-09 01:50] VITALS: BP 160/100; PULSE 96; TEMP 36.6; O2SAT 100; BMI 58.4
--- OUTSIDE RECORDS SUMMARY | 2023-08-09 01:50 | XMS_ITS | CCD ---
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 Name Role Phone [facility] Primary Care Provider SANDRO Anne Emergency Provider JOSE Botello Attending Provider DO Godwin Coker Emergency Provider [phone] DO Mohit Carlos Emergency Provider [phone] [facility] Primary Care Provider MD Devon Damico Attending Provider Vaishnavi [facility] Kiya E Emergency Provider MACIE Mayorga Emergency Provider [phone] [facility] Primary Care Provider MD Devon Damico Attending Provider Vaishnavi [facility] Kiya E Emergency Provider MACIE Mayorga Emergency Provider [phone] SANDRO Anne Emergency Provider [facility] Primary Care Provider DO Fredy Brito II Attending Provider JOSE Botello Attending Provider DO Mohit Carlos Emergency Provider [phone] [facility] Primary Care Provider [phone] JOSE Botello Attending Provider Jorge Pompa Attending Unavailable DO Mitch Wallace Referring Provider [facility] Primary Care Provider JOSE Botello Attending Provider Spasic Lynn E Admitting Unavailable Spasic, Lynn E Attending Unavailable [facility], Services Primary Care U navailable Spasic, Lynn E Admitting Unavailable Spasic, Lynn E Attending Unavailable [facility] Primary Care Unavaila ble Mitch Wallace Referring Unavailable Spasic, Lynn Madison Attending Unavailable Spasic, Lynn E Admitting Unavailable [facility] Primary Care Unavaila ble [facility], Services Primary Care U navailable Clem Gomes Admitting Unavailable Clem Gomes Attending Unavailable Karthikeyansic, Lynn E Admitting Unavailable Spasic, Lynn E Attending Unavailable [facility] Primary Care Unavaila ble Medications Current Medications Medication Drug Class(es) Dates Sig (Normalized) Sig (Original) acetaminophen 325 mg / HYDROcodone bitartrate 5 mg oral tablet (20 sources) Opioid Agonist Start: 03-07-2022 take 1 tablet by mouth every six hours Hydrocodone-Aceta minophen Active 1 TAB PO Q6H 10 March 07, 2022 Start: 12-15-2021 End: 03-07-2022 take 1 tablet by mouth every four to six hours Hydrocodone-Acetaminophen Discontinued 1 TAB PO EVERY 4-6 HOURS 10 December 15, 2021 March 07, 2022 1:37pm Start: 04-22-2018 End: 09-20-2018 take 1 tablet by mouth every six hours Hydrocodone-Acetaminophen ([place]) 5-325 mg tablet Discontinued 1 TAB PO Q6H 10 April 22, 2018 September 20, 2018 9:02pm Start: 11-27-2017 End: 12-04-2017 take 1 tablet by mouth every six hours Hydrocodone-Acetaminophen Discontinued 1 TAB PO Q6H 07 12November 27, 2017 December 03, 2017 11:01pm Start: 11-07-2017 End: 04-22-2018 take 1 tablet by mouth every four hours Hydrocodone-Acetaminophen ([place]) 5-325 mg tablet Discontinued 1 TAB PO Q4H November 07, 2017 April 22, 2018 6:48pm Start: 09-29-2017 End: 04-22-2018 take 1 tablet by mouth every four to six hours Hydrocodone-Acetaminophen ([place]) 5-325 mg Tablet Discontinued 1 TAB PO EVERY 4-6 HOURS 7 September 29, 2017 April 22, 2018 6:48pm [id number] 200 actuat albuterol 0.09 mg/actuat metered dose inhaler (15 sources) beta2-Adrenergic Agonist Start: 11-28-2021 Albuterol Sulfate (Proair Hfa) 90 mcg/actuation HFA aerosol inhaler Active 1 INH INHALATION EVERY 4-6 HOURS 8.5 November 27, 2021 11:00pm atorvastatin 40 mg oral tablet (15 sources) HMG-CoA Reductase Inhibitor Start: 05-09-2021 take 40 mg by mouth once daily Atorvastatin Active 40 MG PO Daily May 09, 2021 12:00am azithromycin 250 mg oral tablet (7 sources) Macrolide Antimicrobial Start: 05-14-2022 Azithromycin Active 0 PO .COMPLEX 6 May 14, 2022 12:00am take 500 mg today (day 1), then 250 mg for 4 days (days 2-5) benzonatate 200 mg oral capsule (20 sources) Non-narcotic Antitussive Start: 05-14-2022 take 200 mg by mouth three times daily Benzonatate Active 200 MG PO Three times daily May 14, 2022 12:00am Start: 11-28-2021 End: 12-15-2021 take 200 mg by mouth three times daily Benzonatate Discontinued 200 MG PO Three times daily 14 November 27, 2021 11:00pm December 15, 2021 12:48pm dapagliflozin 10 mg oral tablet (20 sources) Sodium-Glucose Cotransporter 2 Inhibitor Start: 12-15-2021 take 1 tablet by mouth once daily Dapagliflozin Propanediol (Farxiga) 10 mg tablet Active 10 MG PO Daily December 14, 2021 11:00pm Start: 08-05-2017 End: 05-05-2020 take 1 tablet by mouth once daily Dapagliflozin Propanediol (Farxiga) 10 mg Tablet Discontinued 5 MG PO Daily August 04, 2017 11:00pm May 05, 2020 1:04pm doxycycline hyclate 100 mg oral tablet (9 sources) Tetracycline-class Drug Start: 03-07-2022 take 100 mg by mouth twice daily Doxycycline Hyclate Active 100 MG PO Twice daily March 06, 2022 11:00pm 0.5 ml dulaglutide 3 mg/ml auto-injector (15 sources) GLP-1 Receptor Agonist Start: 05-09-2021 Dulaglutide (Trulicity) 1.5 mg/0.5 mL pen injector Active 1.5 MG SUBCUT every week May 09, 2021 12:00am gabapentin 600 mg oral tablet (15 sources) Anti-epileptic Agent Start: 11-10-2020 take 1 tablet by mouth once daily at bedtime Gabapentin (Neurontin) 600 mg tablet Active 600 MG PO Daily at bedtime November 09, 2020 11:00pm hydroCHLOROthiazide 25 mg oral tablet (15 sources) Thiazide Diuretic Start: 11-10-2020 take 25 mg by mouth once daily in the morning Hydrochlorothiazide Active 25 MG PO Every morning November 09, 2020 11:00pm insulin aspart, human (15 sources) Insulin Analog Start: 11-10-2020 Insulin Aspart U-100 Active 0 .ROUTE .COMPLEX November 09, 2020 11:00pm as directed [facility] Start: 11-10-2020 Insulin Aspart U-100 Active 0 .ROUTE .COMPLEX November 10, 2020 12:00am as directed [facility] 3 ml insulin glargine 100 unt/ml pen injector (15 sources) Insulin Analog Start: 11-10-2020 Insulin Glargi ne (Lantus Solostar U-100 Insulin) 100 unit/mL (3 mL) insulin pen Active 70 UNIT SUBCUT Daily at bedtime November 09, 2020 11:00pm rOPINIRole 0.25 mg oral tablet (20 sources) Nonergot Dopamine Agonist Start: 09-04-2021 take 0.25 mg by mouth once daily Ropinirole Active 0.25 MG PO Daily September 03, 2021 11:00pm Start: 05-09-2021 End: 06-09-2021 take 0.25 mg by mouth once daily Ropinirole Discontinued 0.25 MG PO Daily May 09, 2021 12:00am June 09, 2021 2:53pm tiZANidine 4 mg oral tablet (15 sources) Central alpha-2 Adrenergic Agonist Start: 05-09-2021 take 1 tablet by mouth every six hours Tizanidine (Zanaflex) 4 mg tablet Active 4 MG PO Every 6 hours May 09, 2021 12:00am 24 hr venlafaxine 150 mg extended release oral capsule (15 sources) Serotonin and Norepinephrine Reuptake Inhibitor Start: 05-09-2021 take 1 capsule by mouth once daily Venlafaxine (Effexor Xr) 150 mg capsule,extended release 24hr Active 150 MG PO Daily May 09, 2021 12:00am Completed/Discontinued Medications Medication Drug Class(es) Dates Sig (Normalized) Sig (Original) acetaminophen 500 mg oral tablet (15 sources) Start: 10-15-2017 End: 04-22-2018 take 2 tablets by mouth four times daily Acetaminophen (Tylenol Extra Strength) 500 mg Tablet Discontinued 1000 MG PO Four times daily October 14, 2017 11:00pm April 22, 2018 6:48pm cefTRIAXone 2000 mg injection (15 sources) Cephalosporin Antibacterial Start: 10-03-2018 End: 05-25-2019 take 2 g intravenously every twenty-four hours Ceftriaxone Discontinued 2 GM IV Q24H October 02, 2018 11:00pm May 25, 2019 10:43pm cephalexin 500 mg oral capsule (15 sources) Cephalosporin Antibacterial Start: 05-05-2020 End: 05-11-2020 take 1000 mg by mouth twice daily Cephalexin Discontinued 1000 MG PO Twice daily 28 May 05, 2020 12:00am May 11, 2020 10:56am cyclobenzaprine hydrochloride 10 mg oral tablet (20 sources) Muscle Relaxant Start: 05-26-2019 End: 11-23-2019 take 10 mg by mouth three times daily Cyclobenzaprine Discontinued 10 MG PO Three times daily May 26, 2019 12:00am November 23, 2019 9:56am Start: 09-29-2017 End: 09-20-2018 take 10 mg by mouth every eight hours Cyclobenzaprine Discontinued 10 MG PO Q8H April 22, 2018 12:00am September 20, 2018 9:02pm dexamethasone 0.001 mg/mg / neomycin 0.0035 mg/mg / polymyxin b 10 unt/mg ophthalmic ointment (11 sources) Aminoglycoside Antibacterial, Polymyxin-class Antibacterial, Corticosteroid Start: 02-27-2022 End: 03-07-2022 Neomycin-Polymyxin B-Dexameth (Maxitrol) 3.5 mg/g-10,000 unit/g-0.1 % ointment Discontinued 1 APPLIC EYE-LEFT Three times daily 3.5 7 February 26, 2022 11:00pm March 07, 2022 1:37pm space evenly during waking hours docusate sodium 50 mg / sennosides, residential 8.6 mg oral tablet (15 sources) Start: 05-10-2021 End: 06-09-2021 take 2 tablets by mouth once daily at bedtime Sennosides-Docusate Sodium (Senna Plus) 8.6-50 mg tablet Discontinued 2 TAB PO Daily at bedtime 60 May 10, 2021 12:00am June 09, 2021 2:53pm DULoxetine 30 mg delayed release oral capsule (15 sources) Serotonin and Norepinephrine Reuptake Inhibitor Start: 08-05-2017 End: 05-25-2019 take 1 capsule by mouth once daily Duloxetine (Cymbalta) 30 mg Capsule,Delayed Release(Dr/Ec) Discontinued 30 MG PO Daily August 04, 2017 11:00pm May 25, 2019 10:43pm ferrous sulfate 325 mg oral tablet (15 sources) Start: 08-05-2017 End: 10-04-2017 take 325 mg by mouth twice daily Ferrous Sulfate Discontinued 325 MG PO Twice daily August 04, 2017 11:00pm October 04, 2017 4:07pm guaiFENesin 400 mg oral tablet (15 sources) Start: 11-28-2021 End: 12-15-2021 take 400 mg by mouth every six hours Guaifenesin Discontinued 400 MG PO Q6H November 27, 2021 11:00pm December 15, 2021 12:47pm Insulin Aspart U-100 (Novolog Flexpen U-100 Insulin) 100 unit/mL Insulin Pen (15 sources) Start: 08-05-2017 End: 11-10-2020 Insulin Aspart U-100 (Novolog Flexpen U-100 Insulin) 100 unit/mL Insulin Pen Discontinued 0 UNIT SUBCUT THREE TIMES DAILY WITH MEALS August 04, 2017 11:00pm November 10, 2020 6:04pm Start: 08-05-2017 End: 11-10-2020 Insulin Aspart U-100 (Novolo g Flexpen U-100 Insulin) 100 unit/mL Insulin Pen Discontinued 0 UNIT SUBCUT THREE TIMES DAILY WITH MEALS August 05, 2017 12:00am November 10, 2020 7:04pm 3 ml insulin degludec 200 unt/ml pen injector (15 sources) Insulin Analog Start: 08-05-2017 End: 11-10-2020 Insulin Degludec (Tresiba Flextouch U-200) 200 unit/mL (3 mL) Insulin Pen Discontinued 70 UNITS SUBCUT Daily August 04, 2017 11:00pm November 10, 2020 6:04pm ketorolac tromethamine 5 mg/ml ophthalmic solution (15 sources) Nonsteroidal Anti-inflammatory Drug, Cyclooxygenase Inhibitor Start: 12-03-2020 End: 05-09-2021 take 1 drop(s) into the eye(s) every six hours Ketorolac (Acular) 0.5 % drops Discontinued 2 DROPS EYE-RIGHT Q6H 5 3 December 02, 2020 11:00pm May 09, 2021 11:49pm levoFLOXacin 500 mg oral tablet (15 sources) Quinolone Antimicrobial Start: 09-29-2018 End: 10-03-2018 take 1 tablet by mouth once daily Levofloxacin (Levaquin) 500 mg Tablet Discontinued 500 MG PO Daily September 28, 2018 11:00pm October 03, 2018 2:15pm has not even picked up from pharmacy lisinopril 2.5 mg oral tablet (15 sources) Angiotensin Converting Enzyme Inhibitor Start: 05-05-2020 End: 05-11-2020 take 2.5 mg by mouth once daily Lisinopril Discontinued 2.5 MG PO Daily May 05, 2020 12:00am May 11, 2020 10:56am Multivitamin preparation (15 sources) Start: 11-23-2019 End: 11-10-2020 take 1 tablet by mouth once daily Multivitamin Discontinued 1 TAB PO Daily November 22, 2019 11:00pm November 10, 2020 6:04pm Start: 11-23-2019 End: 11-10-2020 take 1 tablet by mouth once daily Multivitamin Discontinued 1 TAB PO Daily November 23, 2019 12:00am November 10, 2020 7:04pm naproxen 500 mg oral tablet (20 sources) Nonsteroidal Anti-inflammatory Drug Start: 11-10-2020 End: 03-07-2022 take 500 mg by mouth every twelve hours Naproxen Discontinued 500 MG PO Q12H November 09, 2020 11:00pm March 07, 2022 1:37pm Start: 04-22-2018 End: 09-20-2018 take 500 mg by mouth twice daily at mealtime Naproxen Discontinued 500 MG PO Twice daily April 22, 2018 12:00am September 20, 2018 9:02pm administer with food or milk ondansetron 4 mg oral tablet (20 sources) Serotonin-3 Receptor Antagonist Start: 12-15-2021 End: 02-28-2022 Ondansetron Hcl Discontinued 4 MG PO every 6 to 8 hours December 14, 2021 11:00pm February 28, 2022 7:19am Start: 05-10-2021 End: 03-07-2022 take 4 mg by mouth every eight hours Ondansetron Discontinued 4 MG PO Q8H June 09, 2021 3:17pm March 07, 2022 1:37pm Start: 10-04-2017 End: 04-22-2018 take 1 tablet by mouth every four hours Ondansetron (Zofran Odt) 4 mg Tablet,Disintegrating Discontinued 4 MG PO Q4H October 03, 2017 11:00pm April 22, 2018 6:48pm administer first dose 30 minutes before start of emetogenic chemotherapy polymyxin b [id number] unt/ml / trimethoprim 1 mg/ml ophthalmic solution (20 sources) Dihydrofolate Reductase Inhibitor Antibacterial, Polymyxin-class Antibacterial Start: 12-03-2020 End: 05-09-2021 take 1 drop(s) into the eye(s) four times daily Polymyxin B Sulf-Trimethoprim (Polytrim) 10,000 unit- 1 mg/mL drops Discontinued 1 DROPS EYE-RIGHT Four times daily 10 December 02, 2020 11:00pm May 09, 2021 11:49pm Start: 11-08-2020 End: 12-03-2020 take 1 drop(s) into the eye(s) every six hours Polymyxin B Sulf-Trimethoprim (Polytrim) 10,000 unit- 1 mg/mL drops Discontinued 2 DROPS EYE-LEFT Every 6 hours 10 November 07, 2020 11:00pm December 03, 2020 11:37am For 7 Days. Filled 11/08/2020 0.25 mg, 0.5 mg dose 1.5 ml semaglutide 1.34 mg/ml pen injector (15 sources) Start: 11-08-2020 End: 11-10-2020 Semaglutide (Ozempic) 0.25 mg or 0.5 mg(2 mg/1.5 mL) Pen Injector Discontinued 0.5 MG SUBCUT every week November 07, 2020 11:00pm November 10, 2020 6:04pm sertraline 50 mg oral tablet (15 sources) Serotonin Reuptake Inhibitor Start: 05-05-2020 End: 11-10-2020 take 2 tablets by mouth once daily Sertraline (Zoloft) 50 mg tablet Discontinued 100 MG PO Daily May 05, 2020 12:00am November 10, 2020 6:04pm sulfamethoxazole 800 mg / trimethoprim 160 mg oral tablet (15 sources) Dihydrofolate Reductase Inhibitor Antibacterial, Sulfonamide Antimicrobial Start: 11-23-2019 End: 05-05-2020 take 1 tablet by mouth every twelve hours Sulfamethoxazole- Trimethoprim (Bactrim Ds) 800-160 mg tablet Discontinued 1 TAB PO Every 12 hours 01 03November 22, 2019 11:00pm May 05, 2020 1:04pm Problems Active Problems Problem Classification Problem Date Documented Da te Episodic/Chronic Abdominal pain (20 sources) Abdominal pain; Translations: [Unspecified abdominal pain] Onset: 07-18-2023 05-10-2021 Episodic Acute and unspecified renal failure (15 sources) Injury of kidney; Translations: [Acute kidney failure, unspecified] 09-04-2021 Episodic Acute bronchitis (7 sources) Acute bacterial bronchitis; Translations: [Acute bronchitis due to other specified organisms] 05-14-2022 Episodic Bacterial infection; unspecified site (15 sources) Bacteremia; Translations: [Bacteremia] 05-07-2020 Episodic Cancer of kidney and renal pelvis (18 sources) Renal cell carcinoma; Translations: [Malignant neoplasm of unspecified kidney, except renal pelvis] 05-27-2020 Chronic Coagulation and hemorrhagic disorders (15 sources) Platelet count below reference range; Translations: [Thrombocytopenia, unspecified] 05-27-2020 Chronic Conditions associated with dizziness or vertigo (15 sources) Dizziness; Translations: [Dizziness and giddiness] 11-10-2020 Episodic Congestive heart failure; nonhypertensive (1 source) Unspecified diastolic (congestive) heart failure; Translations: [Unspecified diastolic (congestive) heart failure] Onset: 01-24-2023 Chronic Diabetes mellitus with complications (20 sources) Hyperglycemia due to diabetes mellitus; Translations: [Type 2 diabetes mellitus with hyperglycemia] Onset: 04-25-2023 09-04-2021 Chronic Diseases of white blood cells (15 sources) Leukopenia; Translations: [Decreased white blood cell count, unspecified] 05-27-2020 Chronic Fluid and electrolyte disorders (20 sources) Hyponatremia; Translations: [Hypo-osmolality and hyponatremia] 05-27-2020 Episodic Gastrointestinal hemorrhage (15 sources) Rectal hemorrhage; Translations: [Hemorrhage of anus and rectum] 12-27-2021 Episodic Genitourinary symptoms and ill-defined conditions (15 sources) Blood in urine; Translations: [Hematuria, unspecified] 05-05-2020 Episodic Heart valve disorders (15 sources) Endocarditis; 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, unspecified] 05-09-2020 Chronic Inflammation; infection of eye (except that caused by tuberculosis or sexually transmitteddisease) (20 sources) Acute infectious conjunctivitis; Translations: [Unspecified acute conjunctivitis, left eye] 11-08-2020 Episodic Inflammatory conditions of male genital organs (15 sources) Abscess of prostate; Translations: [Abscess of prostate] 01-27-2020 Episodic Nausea and vomiting (15 sources) Nausea and vomiting; Translations: [Nausea with vomiting, unspecified] 05-10-2021 Episodic Other circulatory disease (15 sources) Low blood pressure; Translations: [Hypotension, unspecified] 05-07-2020 Episodic Other connective tissue disease (15 sources) Cramp in lower leg ; Translations: [Cramp and spasm] 01-19-2021 Episodic Other gastrointestinal disorders (15 sources) Constipation; Translations: [Constipation, unspecified] 05-10-2021 Episodic Other injuries and conditions due to external causes (15 sources) Injury of right foot; Translations: [Unspecified injury of right foot, initial encounter] 10-19-2020 Episodic Other injuries and conditions due to external causes (4 sources) Injury of external auditory canal; Translations: [Unspecified injury of ear, initial encounter] 07-01-2022 Episodic Other liver diseases (15 sources) Elevated liver enzymes level; Translations: [Abnormal levels of other serum enzymes] 05-27-2020 Episodic Other lower respiratory disease (15 sources) Solitary nodule of lung; Translations: [Solitary pulmonary nodule] 09-29-2018 Episodic Other nervous system disorders (15 sources) Peripheral nerve disease ; Translations: [Polyneuropathy, unspecified] 09-21-2018 Chronic Other nervous system disorders (1 source) Polyneuropathy, unspecified; Translations: [Polyneuropathy, unspecified] Onset: 07-16-2023 Chronic Other screening for suspected conditions (not mental disorders or infectious disease) (16 sources) Increased lactic acid level; Translations: [Other specified abnormal findings of blood chemistry] Onset: 07-16-2023 05-07-2020 Episodic Other upper respiratory infections (15 sources) Viral upper respiratory tract infection; Translations: [Acute upper respiratory infection, unspecified] 11-28-2021 Episodic Pancreatic disorders (not diabetes) (20 sources) Pancreatitis; Translations: [Acute pancreatitis without necrosis or infection, unspecified] 12-15-2021 Episodic Residual codes; unclassified (15 sources) Absent kidney; Translations: [Acquired absence of kidney] 05-27-2020 Episodic Septicemia (except in labor) (20 sources) Sepsis; Translations: [Sepsis, unspecified organism] 05-27-2020 Episodic Skin and subcutaneous tissue infections (20 sources) Cellulitis; Translations: [Cellulitis, unspecified] 11-23-2019 Episodic Sprains and strains (15 sources) Strain of back muscle; Translations: [Strain of muscle, fascia and tendon of lower back, initial encounter] 05-26-2019 Episodic Superficial injury; contusion (20 sources) Corneal abrasion; Translations: [Injury of conjunctiva and corneal abrasion without foreign body, unspecified eye, initial encounter] 12-03-2020 Episodic Urinary tract infections (20 sources) Urinary tract infectious disease; Translations: [Urinary tract infection, site not specified] 09-29-2018 Episodic Viral infection (15 sources) Evaluation finding; Translations: [Gammaherpesviral mononucleosis without complication] 05-27-2020 Episodic Past or Other Problems Problem Classification Problem Date Documented Da te Episodic/Chronic Nonspecific chest pain (2 sources) Other chest pain; Translations: [Other chest pain] Onset: 12-31-2022 Episodic Results Test Name Value Interpretation Reference Range Facility CT abdomen pelvis wo conon 0 07-18-2023 CT abdomen pelvis wo [facility] [address] [address] [address] Scan Report Signed Patient: Silverio Barahona MR#: [id number] : 1970 Acct:[id number] Age/Sex: 52 / M ADM Date: 07/18/23 Loc: ER Room: Type: [facility] ER Attending Dr: Copies to: Clem Gomes DO Ordering Provider: Clem Gomes DO Date of Service: 07/18/23 CT/CT abdomen pelvis wo con: f CT ABDOMEN AND PELVIS WITHOUT CONTRAST COMPARISON: 06/06/2022 CLINICAL DATA: Left flank pain. Prior right nephrectomy for carcinoma. Spiral images were obtained through the abdomen and pelvis without contrast. This CT exam was performed using one or more following dose reduction techniques: Automated exposure control, adjustment of the mA and/or kV according to patient size, or use of iterative reconstruction technique. Limited cuts through the lung bases show no contributory findings. Assessment of the intra-abdominal organs is slightly limited by the absence of contrast. The gallbladder is surgically absent. No common duct stones are noted. No intrahepatic lesions are vi sualized. The spleen, pancreas and adrenal glands show no acute findings. The left kidney is normal in size, position and contour. There is minor perinephric fibrofatty stranding. No renal calculi or hydronephrosis are identified. No ureteral dilatation or stones are seen. The right kidney is surgically absent. There is mild atherosclerotic plaque at the aorta and iliac arteries. Small abdominal lymph nodes are again seen. There is no ascites. The small bowel loops are not distended. There is increased stool throughout the colon. Mild degenerative changes are present at the spine. There is minor chronic wedge deformity at T10. Images through the pelvis show no dilated small bowel. There is additional moderate colonic stool. There is no diverticular disease. There is prior appendectomy. The prostate is not significantly enlarged. The bladder wall is still borderline thickened for the degree of distention. No intraluminal abnormalities are seen. There is no ascites. CT/CT abdomen pelvis wo con IMPRESSION: POSTOPERATIVE CHANGES OF CHOLECYSTECTOMY, RIGHT NEPHRECTOMY AND APPENDECTOMY. NO LEFT OBSTRUCTIVE UROPATHY OR STONE DISEASE. CONTINUED BORDERLINE URINARY BLADDER WALL THICKENING, WITHOUT OTHER ABNORMALITY. INCREASED COLONIC STOOL. NO OTHER ACUTE FINDINGS. Impression dictated by: Anita Henao M.D.07/18/2023 5:44 PM Dictation Location: [place] [address] Transcribed By: CHOLO 07/18/23 [id number] Dictated By: Anita Henao MD 07/18/23 1737 Signed By: 07/18/23 1744 Normal [facility] Complete Blood Count Auto Di ffon 07-18-2023 Basophils (Bld) [#/Vol] 0.1 10*3/uL Normal 0.0-0.2 [facility] Comment on above: Result Comment: PERF ORMED BY: [place] [address] PATHOLOGIST [employer] ALYSSA MOSQUEDA M.D. Performed By: #### L DLD, TSH3 wRFLX, CMP, LIPID, CBC #### [address] Basophils/100 WBC (Bld) 1.5 % Normal . [facility] Comment on above: Performed By: #### L DLD, TSH3 wRFLX, CMP, LIPID, CBC #### [address] Eosinophils (Bld) [#/Vol] 0.1 10*3/uL Normal 0.0-0.45 [facility] Comment on above: Performed By: #### L DLD, TSH3 wRFLX, CMP, LIPID, CBC #### [address] Eosinophils/100 WBC (Bld) 0.6 % Normal . [facility] Comment on above: Performed By: #### L DLD, TSH3 wRFLX, CMP, LIPID, CBC #### [address] Erythrocyte distribution width (RBC) [Ratio] 13.9 % Normal 12.0-14.8 [facility] Comment on above: Performed By: #### L DLD, TSH3 wRFLX, CMP, LIPID, CBC #### [address] Hematocrit (Bld) [Volume fraction] 44.1 % Normal 38.8-50.0 [facility] Comment on above: Performed By: #### L DLD, TSH3 wRFLX, CMP, LIPID, CBC #### [address] Hemoglobin (Bld) [Mass/Vol] 15.2 g/dL Normal 13.0-17.0 [facility] Comment on above: Performed By: #### L DLD, TSH3 wRFLX, CMP, LIPID, CBC #### [address] Lymphocytes (Bld) [#/Vol] 3.3 10*3/uL Normal 1.00-4.8 [facility] Comment on above: Performed By: #### L DLD, TSH3 wRFLX, CMP, LIPID, CBC #### [address] Lymphocytes/100 WBC (Bld) 34.2 % Normal . [facility] Comment on above: Performed By: #### L DLD, TSH3 wRFLX, CMP, LIPID, CBC #### [address] MCH (RBC) [Entitic mass] 30.5 pg Normal 27.5-35.2 [facility] Comment on above: Performed By: #### L DLD, TSH3 wRFLX, CMP, LIPID, CBC #### [address] MCV (RBC) [Entitic vol] 88.4 fL Normal 83.5-101 [facility] Comment on above: Performed By: #### L DLD, TSH3 wRFLX, CMP, LIPID, CBC #### [address] Mean Corpuscular HGB Conc 34.5 g/dL Normal 32.5-35.6 [facility] Comment on above: Performed By: #### L DLD, TSH3 wRFLX, CMP, LIPID, CBC #### [address] Monocytes (Bld) [#/Vol] 0.6 10*3/uL Normal 0.0-0.8 [facility] Comment on above: Performed By: #### L DLD, TSH3 wRFLX, CMP, LIPID, CBC #### [address] Monocytes/100 WBC (Bld) 15.71 % Normal 0.00-20.00 [facility] Comment on above: Performed By: #### L DLD, TSH3 wRFLX, CMP, LIPID, CBC #### [address] Monocytes/100 WBC (Bld) 6.8 % Normal . [facility] Comment on above: Performed By: #### L DLD, TSH3 wRFLX, CMP, LIPID, CBC #### [address] Neutrophils (Bld) [#/Vol] 5.4 10*3/uL Normal 1.8-7.7 [facility] Comment on above: Performed By: #### L DLD, TSH3 wRFLX, CMP, LIPID, CBC #### [address] Neutrophils/100 WBC (Bld) 56.9 % Normal . [facility] Comment on above: Performed By: #### L DLD, TSH3 wRFLX, CMP, LIPID, CBC #### [address] NRBC% 0.2 /100{WBC} Normal 0-0.5 [facility] Comment on above: Performed By: #### L DLD, TSH3 wRFLX, CMP, LIPID, CBC #### [address] Platelet mean volume (Bld) [Entitic vol] 8.2 fL Normal 6.6-10.1 [facility] Comment on above: Performed By: #### L DLD, TSH3 wRFLX, CMP, LIPID, CBC #### [place] [address] [place] Platelets (Bld) [#/Vol] 189 10*3/uL Normal 150-450 [facility] Comment on above: Performed By: #### L DLD, TSH3 wRFLX, CMP, LIPID, CBC #### [facility] [address] RBC (Bld) [#/Vol] 4.99 10*6/uL Normal 3.90-5.60 [facility] Comment on above: Performed By: #### L DLD, TSH3 wRFLX, CMP, LIPID, CBC #### [facility] [address] WBC (Bld) [#/Vol] 9.5 10*3/uL Normal 4.1-10.5 [facility] Comment on above: Performed By: #### L DLD, TSH3 wRFLX, CMP, LIPID, CBC #### [facility] [address] [place] [address] Comprehensive Metabolic Pane yumi 07-18-2023 Albumin [Mass/Vol] 4.3 g/dL Normal 3.5-5.7 [facility] Comment on above: Performed By: #### L DLD, TSH3 wRFLX, CMP, LIPID, CBC #### [address] Albumin/Globulin [Mass ratio] 1.4 {ratio} Normal [facility] Comment on above: Performed By: #### L DLD, TSH3 wRFLX, CMP, LIPID, CBC #### [address] ALP [Catalytic activity/Vol] 71 U/L Normal 34-104 [facility] Comment on above: Performed By: #### L DLD, TSH3 wRFLX, CMP, LIPID, CBC #### [address] ALT [Catalytic activity/Vol] 28 U/L Normal 7-52 [facility] Comment on above: Performed By: #### L DLD, TSH3 wRFLX, CMP, LIPID, CBC #### [facility] [address] [place] [address] Anion gap [Moles/Vol] 9.7 mmol/L Normal 6.0-15.0 [facility] Comment on above: Performed By: #### L DLD, TSH3 wRFLX, CMP, LIPID, CBC #### [facility] [address] AST [Catalytic activity/Vol] 24 U/L Normal 13-39 [facility] Comment on above: Performed By: #### L DLD, TSH3 wRFLX, CMP, LIPID, CBC #### [facility] [address] Bilirubin [Mass/Vol] 0.5 mg/dL Normal 0.3-1.0 [facility] Comment on above: Performed By: #### L DLD, TSH3 wRFLX, CMP, LIPID, CBC #### [facility] [address] [place] [address] Calcium [Mass/Vol] 9.3 mg/dL Normal 8.6-10.3 [facility] Comment on above: Performed By: #### L DLD, TSH3 wRFLX, CMP, LIPID, CBC #### [address] Chloride [Moles/Vol] 104 mmol/L Normal 98-107 [facility] Comment on above: Performed By: #### L DLD, TSH3 wRFLX, CMP, LIPID, CBC #### [address] CO2 [Moles/Vol] 28.5 mmol/L Normal 21.0-31.0 [facility] Comment on above: Performed By: #### L DLD, TSH3 wRFLX, CMP, LIPID, CBC #### [address] Creatinine [Mass/Vol] 1.10 mg/dL Normal 0.70-1.30 [facility] Comment on above: Performed By: #### L DLD, TSH3 wRFLX, CMP, LIPID, CBC #### [address] Creatinine Clr Calc Pharmacy 89.06 Normal [facility] Comment on above: Performed By: #### L DLD, TSH3 wRFLX, CMP, LIPID, CBC #### [facility] [address] [place] [address] [place] GFR/1.73 sq M.predicted MDRD (S/P/Bld) [Vol rate/Area] mL/min/{1.73_m2} [facility] Comment on above: Performed By: #### L DLD, TSH3 wRFLX, CMP, LIPID, CBC #### [facility] [address] Globulin (S) [Mass/Vol] 3.1 g/dL [facility] Comment on above: Performed By: #### L DLD, TSH3 wRFLX, CMP, LIPID, CBC #### [address] Glucose [Mass/Vol] 104 mg/dL High 70-100 [facility] Comment on above: Result Comment: [place] Glucose Reference Range is dependent on time and content of last meal. Glucose of more than 200 mg/dL in a nonstressed, ambulatory subject supports the diagnosis of Diabetes Mellitus. ADA recommended reference range Performed By: #### L DLD, TSH3 wRFLX, CMP, LIPID, CBC #### [address] Potassium [Moles/Vol] 4.2 mmol/L Normal 3.5-5.1 [facility] Comment on above: Performed By: #### L DLD, TSH3 wRFLX, CMP, LIPID, CBC #### [place] [address] [place] Protein [Mass/Vol] 7.4 g/dL Normal 6.4-8.9 [facility] Comment on above: Performed By: #### L DLD, TSH3 wRFLX, CMP, LIPID, CBC #### [place] [address] [place] Sodium [Moles/Vol] 138 mmol/L Normal 136-145 [facility] Comment on above: Performed By: #### L DLD, TSH3 wRFLX, CMP, LIPID, CBC #### [place] [address] [place] Urea nitrogen [Mass/Vol] 16 mg/dL Normal 7-25 [facility] Comment on above: Performed By: #### L DLD, TSH3 wRFLX, CMP, LIPID, CBC #### [facility] [address] Dipstick and Microscopicon 0 07-18-2023 Appearance (U) Clear Normal Clear [facility] Comment on above: Order Comment: Reaso n for Exam Type 2 diabetes mellitus with other specified complication Performed By: #### L DLD, TSH3 wRFLX, CMP, LIPID, CBC #### [facility] [address] Bacteria,Urine None Seen Normal None Seen [facility] Comment on above: Order Comment: Reaso n for Exam Type 2 diabetes mellitus with other specified complication Performed By: #### L DLD, TSH3 wRFLX, CMP, LIPID, CBC #### [facility] [address] [place] [address] Bilirubin,Urine Negative Normal Negative [facility] Comment on above: Order Comment: Reaso n for Exam Type 2 diabetes mellitus with other specified complication Performed By: #### L DLD, TSH3 wRFLX, CMP, LIPID, CBC #### [facility] [address] [place] [address] Color (U) Yellow Normal Yellow [facility] Comment on above: Order Comment: Reaso n for Exam Type 2 diabetes mellitus with other specified complication Performed By: #### L DLD, TSH3 wRFLX, CMP, LIPID, CBC #### [facility] [address] Glucose Ql (U) >=1000 High Normal [facility] Comment on above: Order Comment: Reaso n for Exam Type 2 diabetes mellitus with other specified complication Performed By: #### L DLD, TSH3 wRFLX, CMP, LIPID, CBC #### [facility] [address] Hyaline Casts,Urine None Seen Normal 0-8 [facility] Comment on above: Order Comment: Reaso n for Exam Type 2 diabetes mellitus with other specified complication Result Comment: PERF ORMED BY: [place] [address] PATHOLOGIST [employer] ALYSSA MOSQUEDA M.D. Performed By: #### L DLD, TSH3 wRFLX, CMP, LIPID, CBC #### [address] Ketones Ql (U) Negative Normal Negative [facility] Comment on above: Order Comment: Reaso n for Exam Type 2 diabetes mellitus with other specified complication Performed By: #### L DLD, TSH3 wRFLX, CMP, LIPID, CBC #### [address] Leukocyte esterase Test strip Ql (U) Negative Normal Negative [facility] Comment on above: Order Comment: Reaso n for Exam Type 2 diabetes mellitus with other specified complication Performed By: #### L DLD, TSH3 wRFLX, CMP, LIPID, CBC #### [address] Nitrite,Urine Negative Normal Negative [facility] Comment on above: Order Comment: Reaso n for Exam Type 2 diabetes mellitus with other specified complication Performed By: #### L DLD, TSH3 wRFLX, CMP, LIPID, CBC #### [address] Occult Blood,Urine Negative Normal Negative [facility] Comment on above: Order Comment: Reaso n for Exam Type 2 diabetes mellitus with other specified complication Result Comment: PERF ORMED BY: [place] [address] PATHOLOGIST [employer]ARM CONS[employer]ANT ALYSSA MOSQUEDA M.D. Performed By: #### L DLD, TSH3 wRFLX, CMP, LIPID, CBC #### [address] pH (U) 6.5 [pH] Normal 5.0-9.0 [facility] Comment on above: Order Comment: Reaso n for Exam Type 2 diabetes mellitus with other specified complication Performed By: #### L DLD, TSH3 wRFLX, CMP, LIPID, CBC #### [place] [id number] [place] Protein (U) [Mass/Vol] 30 mg/dL High Negative [facility] Comment on above: Order Comment: Reaso n for Exam Type 2 diabetes mellitus with other specified complication Performed By: #### L DLD, TSH3 wRFLX, CMP, LIPID, CBC #### [facility] [address] [place] [address] RBC LM.HPF (Urine sed) [#/Area] 0 /[HPF] Normal 0-4 [facility] Comment on above: Order Comment: Reaso n for Exam Type 2 diabetes mellitus with other specified complication Performed By: #### L DLD, TSH3 wRFLX, CMP, LIPID, CBC #### [address] Specificy [place],Urine 1.021 Normal 1.001-1.030 [facility] Comment on above: Order Comment: Reaso n for Exam Type 2 diabetes mellitus with other specified complication Performed By: #### L DLD, TSH3 wRFLX, CMP, LIPID, CBC #### [address] Squamous Epithelial Cell,Urine None Seen Normal 0-2 [facility] Comment on above: Order Comment: Reaso n for Exam Type 2 diabetes mellitus with other specified complication Performed By: #### L DLD, TSH3 wRFLX, CMP, LIPID, CBC #### [address] Urobilinogen,Urine Normal Normal Normal [facility] Comment on above: Order Comment: Reaso n for Exam Type 2 diabetes mellitus with other specified complication Performed By: #### L DLD, TSH3 wRFLX, CMP, LIPID, CBC #### [address] WBC,Urine None Seen Normal 0-4 [facility] Comment on above: Order Comment: Reaso n for Exam Type 2 diabetes mellitus with other specified complication Performed By: #### L DLD, TSH3 wRFLX, CMP, LIPID, CBC #### [address] Hepatic Panelon 07-18-2023 Bilirubin,Indirect 0.4 mg/dL Normal [facility] Comment on above: Performed By: #### L DLD, TSH3 wRFLX, CMP, LIPID, CBC #### [address] Bilirubin.indirect [Mass/Vol] 0.10 mg/dL Normal 0.03-0.18 [facility] Comment on above: Performed By: #### L DLD, TSH3 wRFLX, CMP, LIPID, CBC #### [address] Lipaseon 07-18-2023 Lipase [Catalytic activity/Vol] 70.0 U/L Normal 11.0-82.0 [facility] Comment on above: Result Comment: PERF ORMED BY: [place] [address] PATHOLOGIST [employer] CONS[employer]ANT ALYSSA MOSQUEDA M.D. Performed By: #### L DLD, TSH3 wRFLX, CMP, LIPID, CBC #### [address] Complete Blood Count Auto Di ffon 07-16-2023 Basophils (Bld) [#/Vol] 0.1 10*3/uL Normal 0.0-0.2 [facility] Comment on above: Order Comment: Reaso n for Exam Type 2 diabetes mellitus with other specified complication Result Comment: PERF ORMED BY: [place] [address] PATHOLOGIST FARM CONS[employer]ANT ALYSSA MOSQUEDA M.D. Performed By: #### C BC, FE and TIBC, LIPID, B12, [id number], TSH3 wRFLX, CMP, PSAS #### [address] Basophils/100 WBC (Bld) 1.5 % Normal . [facility] Comment on above: Order Comment: Reaso n for Exam Type 2 diabetes mellitus with other specified complication Performed By: #### C BC, FE and TIBC, LIPID, B12, [id number], TSH3 wRFLX, CMP, PSAS #### [address] Eosinophils (Bld) [#/Vol] 0.1 10*3/uL Normal 0.0-0.45 [facility] Comment on above: Order Comment: Reaso n for Exam Type 2 diabetes mellitus with other specified complication Performed By: #### C BC, FE and TIBC, LIPID, B12, [id number], TSH3 wRFLX, CMP, PSAS #### [address] Eosinophils/100 WBC (Bld) 0.9 % Normal . [facility] Comment on above: Order Comment: Reaso n for Exam Type 2 diabetes mellitus with other specified complication Performed By: #### C BC, FE and TIBC, LIPID, B12, [id number], TSH3 wRFLX, CMP, PSAS #### [address] Erythrocyte distribution width (RBC) [Ratio] 13.8 % Normal 12.0-14.8 [facility] Comment on above: Order Comment: Reaso n for Exam Type 2 diabetes mellitus with other specified complication Performed By: #### C BC, FE and TIBC, LIPID, B12, [id number], TSH3 wRFLX, CMP, PSAS #### [address] Hematocrit (Bld) [Volume fraction] 43.9 % Normal 38.8-50.0 [facility] Comment on above: Order Comment: Reaso n for Exam Type 2 diabetes mellitus with other specified complication Performed By: #### C BC, FE and TIBC, LIPID, B12, [id number], TSH3 wRFLX, CMP, PSAS #### [address] Hemoglobin (Bld) [Mass/Vol] 15.1 g/dL Normal 13.0-17.0 [facility] Comment on above: Order Comment: Reaso n for Exam Type 2 diabetes mellitus with other specified complication Performed By: #### C BC, FE and TIBC, LIPID, B12, [id number], TSH3 wRFLX, CMP, PSAS #### [address] Lymphocytes (Bld) [#/Vol] 2.7 10*3/uL Normal 1.00-4.8 [facility] Comment on above: Order Comment: Reaso n for Exam Type 2 diabetes mellitus with other specified complication Performed By: #### C BC, FE and TIBC, LIPID, B12, [id number], TSH3 wRFLX, CMP, PSAS #### [address] Lymphocytes/100 WBC (Bld) 35.8 % Normal . [facility] Comment on above: Order Comment: Reaso n for Exam Type 2 diabetes mellitus with other specified complication Performed By: #### C BC, FE and TIBC, LIPID, B12, [id number], TSH3 wRFLX, CMP, PSAS #### [address] MCH (RBC) [Entitic mass] 30.5 pg Normal 27.5-35.2 [facility] Comment on above: Order Comment: Reaso n for Exam Type 2 diabetes mellitus with other specified complication Performed By: #### C BC, FE and TIBC, LIPID, B12, [id number], TSH3 wRFLX, CMP, PSAS #### [address] MCV (RBC) [Entitic vol] 88.9 fL Normal 83.5-101 [facility] Comment on above: Order Comment: Reaso n for Exam Type 2 diabetes mellitus with other specified complication Performed By: #### C BC, FE and TIBC, LIPID, B12, [id number], TSH3 wRFLX, CMP, PSAS #### [address] Mean Corpuscular HGB Conc 34.3 g/dL Normal 32.5-35.6 [facility] Comment on above: Order Comment: Reaso n for Exam Type 2 diabetes mellitus with other specified complication Performed By: #### C BC, FE and TIBC, LIPID, B12, [id number], TSH3 wRFLX, CMP, PSAS #### [facility] [address] [place] [address] [place] Monocytes (Bld) [#/Vol] 0.5 10*3/uL Normal 0.0-0.8 [facility] Comment on above: Order Comment: Reaso n for Exam Type 2 diabetes mellitus with other specified complication Performed By: #### C BC, FE and TIBC, LIPID, B12, [id number], TSH3 wRFLX, CMP, PSAS #### [facility] [address] [place] [address] [place] Monocytes/100 WBC (Bld) 6.5 % Normal . [facility] Comment on above: Order Comment: Reaso n for Exam Type 2 diabetes mellitus with other specified complication Performed By: #### C BC, FE and TIBC, LIPID, B12, [id number], TSH3 wRFLX, CMP, PSAS #### [facility] [address] [place] [address] [place] Neutrophils (Bld) [#/Vol] 4.2 10*3/uL Normal 1.8-7.7 [facility] Comment on above: Order Comment: Reaso n for Exam Type 2 diabetes mellitus with other specified complication Performed By: #### C BC, FE and TIBC, LIPID, B12, [id number], TSH3 wRFLX, CMP, PSAS #### [facility] [address] [place] [address] [place] Neutrophils/100 WBC (Bld) 55.3 % Normal . [facility] Comment on above: Order Comment: Reaso n for Exam Type 2 diabetes mellitus with other specified complication Performed By: #### C BC, FE and TIBC, LIPID, B12, [id number], TSH3 wRFLX, CMP, PSAS #### [facility] [address] [place] [address] [place] NRBC% 0.0 /100{WBC} Normal 0-0.5 [facility] Comment on above: Order Comment: Reaso n for Exam Type 2 diabetes mellitus with other specified complication Performed By: #### C BC, FE and TIBC, LIPID, B12, [id number], TSH3 wRFLX, CMP, PSAS #### [facility] [address] Platelet mean volume (Bld) [Entitic vol] 9.2 fL Normal 6.6-10.1 [facility] Comment on above: Order Comment: Reaso n for Exam Type 2 diabetes mellitus with other specified complication Performed By: #### C BC, FE and TIBC, LIPID, B12, [id number], TSH3 wRFLX, CMP, PSAS #### [facility] [address] Platelets (Bld) [#/Vol] 192 10*3/uL Normal 150-450 [facility] Comment on above: Order Comment: Reaso n for Exam Type 2 diabetes mellitus with other specified complication Performed By: #### C BC, FE and TIBC, LIPID, B12, [id number], TSH3 wRFLX, CMP, PSAS #### [address] RBC (Bld) [#/Vol] 4.94 10*6/uL Normal 3.90-5.60 [facility] Comment on above: Order Comment: Reaso n for Exam Type 2 diabetes mellitus with other specified complication Performed By: #### C BC, FE and TIBC, LIPID, B12, [id number], TSH3 wRFLX, CMP, PSAS #### [address] WBC (Bld) [#/Vol] 7.5 10*3/uL Normal 4.1-10.5 [facility] Comment on above: Order Comment: Reaso n for Exam Type 2 diabetes mellitus with other specified complication Performed By: #### C BC, FE and TIBC, LIPID, B12, [id number], TSH3 wRFLX, CMP, PSAS #### [address] Comprehensive Metabolic Pane yumi 07-16-2023 Albumin [Mass/Vol] 4.3 g/dL Normal 3.5-5.7 [facility] Comment on above: Order Comment: Reaso n for Exam Type 2 diabetes mellitus with other specified complication Performed By: #### L DLD, TSH3 wRFLX, CMP, LIPID, CBC #### [facility] [address] Albumin/Globulin [Mass ratio] 1.7 {ratio} Normal [facility] Comment on above: Order Comment: Reaso n for Exam Type 2 diabetes mellitus with other specified complication Performed By: #### L DLD, TSH3 wRFLX, CMP, LIPID, CBC #### [facility] [address] ALP [Catalytic activity/Vol] 78 U/L Normal 34-104 [facility] Comment on above: Order Comment: Reaso n for Exam Type 2 diabetes mellitus with other specified complication Performed By: #### L DLD, TSH3 wRFLX, CMP, LIPID, CBC #### [facility] [address] [place] [address] ALT [Catalytic activity/Vol] 26 U/L Normal 7-52 [facility] Comment on above: Order Comment: Reaso n for Exam Type 2 diabetes mellitus with other specified complication Performed By: #### L DLD, TSH3 wRFLX, CMP, LIPID, CBC #### [facility] [address] [place] [address] Anion gap [Moles/Vol] 9.8 mmol/L Normal 6.0-15.0 [facility] Comment on above: Order Comment: Reaso n for Exam Type 2 diabetes mellitus with other specified complication Performed By: #### L DLD, TSH3 wRFLX, CMP, LIPID, CBC #### [facility] [address] [place] [address] AST [Catalytic activity/Vol] 22 U/L Normal 13-39 [facility] Comment on above: Order Comment: Reaso n for Exam Type 2 diabetes mellitus with other specified complication Performed By: #### L DLD, TSH3 wRFLX, CMP, LIPID, CBC #### [facility] [address] [place] [address] Bilirubin [Mass/Vol] 0.4 mg/dL Normal 0.3-1.0 [facility] Comment on above: Order Comment: Reaso n for Exam Type 2 diabetes mellitus with other specified complication Performed By: #### L DLD, TSH3 wRFLX, CMP, LIPID, CBC #### [facility] [address] Calcium [Mass/Vol] 9.4 mg/dL Normal 8.6-10.3 [facility] Comment on above: Order Comment: Reaso n for Exam Type 2 diabetes mellitus with other specified complication Performed By: #### L DLD, TSH3 wRFLX, CMP, LIPID, CBC #### [facility] [address] Chloride [Moles/Vol] 105 mmol/L Normal 98-107 [facility] Comment on above: Order Comment: Reaso n for Exam Type 2 diabetes mellitus with other specified complication Performed By: #### L DLD, TSH3 wRFLX, CMP, LIPID, CBC #### [facility] [address] [place] [address] CO2 [Moles/Vol] 29.4 mmol/L Normal 21.0-31.0 [facility] Comment on above: Order Comment: Reaso n for Exam Type 2 diabetes mellitus with other specified complication Performed By: #### L DLD, TSH3 wRFLX, CMP, LIPID, CBC #### [facility] [address] [place] [address] Creatinine [Mass/Vol] 1.05 mg/dL Normal 0.70-1.30 [facility] Comment on above: Order Comment: Reaso n for Exam Type 2 diabetes mellitus with other specified complication Performed By: #### L DLD, TSH3 wRFLX, CMP, LIPID, CBC #### [facility] [address] [place] [address] GFR/1.73 sq M.predicted MDRD (S/P/Bld) [Vol rate/Area] mL/min/{1.73_m2} [facility] Comment on above: Order Comment: Reaso n for Exam Type 2 diabetes mellitus with other specified complication Performed By: #### L DLD, TSH3 wRFLX, CMP, LIPID, CBC #### [facility] [address] [place] [address] Globulin (S) [Mass/Vol] 2.5 g/dL Normal [facility] Comment on above: Order Comment: Reaso n for Exam Type 2 diabetes mellitus with other specified complication Performed By: #### L DLD, TSH3 wRFLX, CMP, LIPID, CBC #### [facility] [address] [place] [id number] [facility] Glucose [Mass/Vol] 91 mg/dL Normal 70-100 [facility] Comment on above: Order Comment: Reaso n for Exam Type 2 diabetes mellitus with other specified complication Result Comment: [facility] Glucose Reference Range is dependent on time and content of last meal. Glucose of more than 200 mg/dL in a nonstressed, ambulatory subject supports the diagnosis of Diabetes Mellitus. ADA recommended reference range Performed By: #### L DLD, TSH3 wRFLX, CMP, LIPID, CBC #### [facility] [address] [place] [address] Potassium [Moles/Vol] 4.2 mmol/L Normal 3.5-5.1 [facility] Comment on above: Order Comment: Reaso n for Exam Type 2 diabetes mellitus with other specified complication Performed By: #### L DLD, TSH3 wRFLX, CMP, LIPID, CBC #### [facility] [address] [place] [address] [place] Protein [Mass/Vol] 6.8 g/dL Normal 6.4-8.9 [facility] Comment on above: Order Comment: Reaso n for Exam Type 2 diabetes mellitus with other specified complication Performed By: #### L DLD, TSH3 wRFLX, CMP, LIPID, CBC #### [facility] [address] [place] [id number] [place] Sodium [Moles/Vol] 140 mmol/L Normal 136-145 [facility] Comment on above: Order Comment: Reaso n for Exam Type 2 diabetes mellitus with other specified complication Performed By: #### L DLD, TSH3 wRFLX, CMP, LIPID, CBC #### [facility] [address] [place] [id number] [place] Urea nitrogen [Mass/Vol] 19 mg/dL Normal 7-25 [facility] Comment on above: Order Comment: Reaso n for Exam Type 2 diabetes mellitus with other specified complication Performed By: #### L DLD, TSH3 wRFLX, CMP, LIPID, CBC #### [facility] [address] Iron and TIBC Profileon % Iron Saturation 26.9 % Normal 20-50 [facility] Comment on above: Order Comment: Reaso n for Exam Type 2 diabetes mellitus with other specified complication Performed By: #### L DLD, TSH3 wRFLX, CMP, LIPID, CBC #### [facility] [address] Iron [Mass/Vol] 97 ug/dL Normal 50-212 [facility] Comment on above: Order Comment: Reaso n for Exam Type 2 diabetes mellitus with other specified complication Performed By: #### L DLD, TSH3 wRFLX, CMP, LIPID, CBC #### [facility] [address] [place] [address] Total Iron Binding Capacity 361 ug/dL Normal 255-450 [facility] Comment on above: Order Comment: Reaso n for Exam Type 2 diabetes mellitus with other specified complication Performed By: #### L DLD, TSH3 wRFLX, CMP, LIPID, CBC #### [facility] [address] [place], [place] [id number] [facility] Transferrin [Mass/Vol] 258 mg/dL Normal 203-362 [facility] Comment on above: Order Comment: Reaso n for Exam Type 2 diabetes mellitus with other specified complication Performed By: #### L DLD, TSH3 wRFLX, CMP, LIPID, CBC #### [facility] [address] [place], [place] [id number] [facility] Lipid Panelon 07-16-2023 Cholesterol [Mass/Vol] 186 mg/dL Normal 140-200 [facility] Comment on above: Order Comment: Reaso n for Exam Type 2 diabetes mellitus with other specified complication Result Comment: Chol less than 200 mg/dl low risk Chol 201-239 mg/dl borderline risk Chol 240 mg/dl and greater high risk Performed By: #### L DLD, TSH3 wRFLX, CMP, LIPID, CBC #### [facility] [address] [place] [address] [place] Cholesterol in HDL [Mass/Vol] 44 mg/dL Normal 23-92 [facility] Comment on above: Order Comment: Reaso n for Exam Type 2 diabetes mellitus with other specified complication Result Comment: HDL CHOL ATP-III CLASSIFICATION Cardiovascular Risk HDL > or equal to 60 mg/dL LOW HDL < 40 mg/dL HIGH Performed By: #### L DLD, TSH3 wRFLX, CMP, LIPID, CBC #### [facility] [address] Cholesterol.total/Chol esterol in HDL [Mass ratio] 4.2 {ratio} Normal <5.0 [facility] Comment on above: Order Comment: Reaso n for Exam Type 2 diabetes mellitus with other specified complication Performed By: #### L DLD, TSH3 wRFLX, CMP, LIPID, CBC #### [facility] [address] LDL Cholesterol,Calculated 105 mg/dL High 0-100 [facility] Comment on above: Order Comment: Reaso n for Exam Type 2 diabetes mellitus with other specified complication Result Comment: LDL ATP III CLASSIFICATION LDL less than 100 mg/dL Optimal LDL 100-129 mg/dL Near or above optimal LDL 130-159 mg/dL Borderline high LDL 160-189 mg/dL High LDL greater than 189 mg/dL Very high Performed By: #### L DLD, TSH3 wRFLX, CMP, LIPID, CBC #### [facility] [address] Triglyceride w/Reflex 187 mg/dL High 0-149 [facility] Comment on above: Order Comment: Reaso n for Exam Type 2 diabetes mellitus with other specified complication Result Comment: TRIG ATP III CLASSIFICATION TRIG less than 150 mg/dL Normal TRIG 150-199 mg/dL Borderline high TRIG 200-500 mg/dL High TRIG greater than 500 mg/dL Very high Standard traceable to the Center for Disease Conrtrol and Prevention (CDC) test method. Performed By: #### L DLD, TSH3 wRFLX, CMP, LIPID, CBC #### [facility] [address] VLDL CHOLESTEROL 37 mg/dL Normal [facility] Comment on above: Order Comment: Reaso n for Exam Type 2 diabetes mellitus with other specified complication Performed By: #### L DLD, TSH3 wRFLX, CMP, LIPID, CBC #### [facility] [address] [place] [address] PSA Screen (Yearly Only)on 0 07-16-2023 PSA Screen (Yearly Only) 0.430 ng/mL Normal 0.000-4.000 [facility] Comment on above: Order Comment: Reaso n for Exam Type 2 diabetes mellitus with other specified complication Result Comment: Seri al tumor marker results determined by assays using different manufacturers or methods may not be comparable. [facility] Laboratory operator catalyst concentration and method: s0cket DXI, CHEMILUMINESCENT IMMUNOASSAY. PERFORMED BY: [place] [address] PATHOLOGIST FARM CONSULTANT ALYSSA MOSQUEDA M.D. Performed By: #### L DLD, TSH3 wRFLX, CMP, LIPID, CBC #### [facility] [address] [place] [address] Thyroid Stim Hormone w/Rflxo n 07-16-2023 Thyroid Stim Hormone w/Rflx 1.41 u[iU]/mL Normal 0.45-5.33 [facility] Comment on above: Order Comment: Reaso n for Exam Type 2 diabetes mellitus with other specified complication Performed By: #### L DLD, TSH3 wRFLX, CMP, LIPID, CBC #### [facility] [address] [place] [address] Vitamin B12on 07-16-2023 Cobalamin (Vitamin B12) [Mass/Vol] 702 pg/mL Normal 180-914 [facility] Comment on above: Order Comment: Reaso n for Exam Type 2 diabetes mellitus with other specified complication Performed By: #### L DLD, TSH3 wRFLX, CMP, LIPID, CBC #### [facility] [address] [place] [address] Vitamin D 25 Hydroxy Totalon 07-16-2023 Vitamin D 25 Hydroxy Total 14.0 ng/mL Low 30-100 [facility] Comment on above: Order Comment: Reaso n for Exam Type 2 diabetes mellitus with other specified complication Result Comment: VIK MIN D STATUS 25(OH)VITAMIN D RANGE (ng/mL) Deficient <20 Insufficient 20 to <30 Sufficient 30 to 100 Reference: Marilyn MF,April NC, Tracy PARKER, et al. Evaluation,treatment, and prevention of vitamin D deficiency; an Endocrine Society clinical practice guideline. JCEM. 2010; 96(7):1911-30. PERFORMED BY: [facility] [address] [place] [address] PATHOLOGIST FARM CONSULTANT ALYSSA MOSQUEDA M.D. Performed By: #### L DLD, TSH3 wRFLX, CMP, LIPID, CBC #### [facility] [address] Alanine aminotransferase [En zymatic activity/volume] in Serum or PlasmaOrdered By: Lynn Botello on 04-25-2023 ALT [Catalytic activity/Vol] 27 U/L 7-52 [facility] Albumin [Mass/volume] in Ser um or Plasma by Bromocresol green (BCG) dye binding methoOrdered By: Lynn Botello on 04-25-2023 Albumin BCG dye [Mass/Vol] 4.2 g/dL 3.5-5.7 [facility] Alkaline phosphatase [Enzyma tic activity/volume] in Serum or PlasmaOrdered By: Lynn Botello on 04-25-2023 ALP [Catalytic activity/Vol] 91 U/L 34-104 [facility] Aspartate aminotransferase [ Enzymatic activity/volume] in Serum or PlasmaOrdered By: Lynn Botello on 04-25-2023 AST [Catalytic activity/Vol] 18 U/L 13-39 [facility] Basophils Auto (Bld) [#/Vol] Ordered By: Lynn Botello on 04-25-2023 Basophils (Bld) [#/Vol] 0.1 10*3/uL 0.0-0.2 [facility] Basophils/100 WBC Auto (Bld) Ordered By: Lynn Botello on 04-25-2023 Basophils/100 WBC (Bld) 0.7 % . [facility] Bilirubin.total [Mass/volume ] in Serum or PlasmaOrdered By: Lynn Botello on 04-25-2023 Bilirubin [Mass/Vol] 0.4 mg/dL 0.3-1.0 [facility] Calcium [Mass/volume] in Ser um or PlasmaOrdered By: Lynn Botello on 04-25-2023 Calcium [Mass/Vol] 9.4 mg/dL 8.6-10.3 [facility] Carbon dioxide, total [Moles /volume] in Serum or PlasmaOrdered By: Lynn Botello on 04-25-2023 CO2 [Moles/Vol] 31.1 mmol/L 21.0-31.0 [facility] Chloride [Moles/volume] in S manohar or PlasmaOrdered By: Lynn Botello on 04-25-2023 Chloride [Moles/Vol] 96 mmol/L 98-107 [facility] Cholesterol [Mass/volume] in Serum or PlasmaOrdered By: Lynn Botello on 04-25-2023 Cholesterol [Mass/Vol] 190 mg/dL 140-200 [facility] Comment on above: Chol less than 200 m g/dl low riskChol 201-239 mg/dl borderline riskChol 240 mg/dl and greater high risk Cholesterol in LDL Calc [Mas s/Vol]Ordered By: Lynn Botello on 04-25-2023 Cholesterol in LDL [Mass/Vol] TNP [facility] Comment on above: Test not performed Cholesterol in LDL [Mass/vol ume] in Serum or PlasmaOrdered By: Lynn Botello on 04-25-2023 Cholesterol in LDL [Mass/Vol] 90 mg/dL 0-100 [facility] Comment on above: LDL ATP III CLASSIFI CATIONLDL less than 100 mg/dL OptimalLDL 100-129 mg/dL Near or above optimalLDL 130-159 mg/dL Borderline highLDL 160-189 mg/dL HighLDL greater than 189 mg/dL Very high Cholesterol in VLDL Calc [Ma ss/Vol]Ordered By: Lynn Botello on 04-25-2023 Cholesterol in VLDL [Mass/Vol] 129 mg/dL [facility] Complete Blood Count Auto Di ffon 04-25-2023 Basophils (Bld) [#/Vol] 0.1 10*3/uL Normal 0.0-0.2 [facility] Comment on above: Order Comment: Reaso n for Exam Type 2 diabetes mellitus with other specified complication Result Comment: PERF ORMED BY: [place] [address] PATHOLOGIST FARM CONSULTANT ALYSSA MOSQUEDA M.D. Performed By: #### L DLD, TSH3 wRFLX, CMP, LIPID, CBC #### [facility] [address] [place] [address] Basophils/100 WBC (Bld) 0.7 % Normal . [facility] Comment on above: Order Comment: Reaso n for Exam Type 2 diabetes mellitus with other specified complication Performed By: #### L DLD, TSH3 wRFLX, CMP, LIPID, CBC #### [address] Eosinophils (Bld) [#/Vol] 0.2 10*3/uL Normal 0.0-0.45 [facility] Comment on above: Order Comment: Reaso n for Exam Type 2 diabetes mellitus with other specified complication Performed By: #### L DLD, TSH3 wRFLX, CMP, LIPID, CBC #### [facility] [address] [place] [address] Eosinophils/100 WBC (Bld) 2.3 % Normal . [facility] Comment on above: Order Comment: Reaso n for Exam Type 2 diabetes mellitus with other specified complication Performed By: #### L DLD, TSH3 wRFLX, CMP, LIPID, CBC #### [facility] [address] [place] [address] Erythrocyte distribution width (RBC) [Ratio] 13.3 % Normal 12.0-14.8 [facility] Comment on above: Order Comment: Reaso n for Exam Type 2 diabetes mellitus with other specified complication Performed By: #### L DLD, TSH3 wRFLX, CMP, LIPID, CBC #### [facility] [address] [place] [address] Hematocrit (Bld) [Volume fraction] 48.0 % Normal 38.8-50.0 [facility] Comment on above: Order Comment: Reaso n for Exam Type 2 diabetes mellitus with other specified complication Performed By: #### L DLD, TSH3 wRFLX, CMP, LIPID, CBC #### [address] Hemoglobin (Bld) [Mass/Vol] 16.7 g/dL Normal 13.0-17.0 [facility] Comment on above: Order Comment: Reaso n for Exam Type 2 diabetes mellitus with other specified complication Performed By: #### L DLD, TSH3 wRFLX, CMP, LIPID, CBC #### [address] Lymphocytes (Bld) [#/Vol] 2.2 10*3/uL Normal 1.00-4.8 [facility] Comment on above: Order Comment: Reaso n for Exam Type 2 diabetes mellitus with other specified complication Performed By: #### L DLD, TSH3 wRFLX, CMP, LIPID, CBC #### [address] Lymphocytes/100 WBC (Bld) 28.9 % Normal . [facility] Comment on above: Order Comment: Reaso n for Exam Type 2 diabetes mellitus with other specified complication Performed By: #### L DLD, TSH3 wRFLX, CMP, LIPID, CBC #### [address] MCH (RBC) [Entitic mass] 30.5 pg Normal 27.5-35.2 [facility] Comment on above: Order Comment: Reaso n for Exam Type 2 diabetes mellitus with other specified complication Performed By: #### L DLD, TSH3 wRFLX, CMP, LIPID, CBC #### [address] MCV (RBC) [Entitic vol] 87.8 fL Normal 83.5-101 [facility] Comment on above: Order Comment: Reaso n for Exam Type 2 diabetes mellitus with other specified complication Performed By: #### L DLD, TSH3 wRFLX, CMP, LIPID, CBC #### [address] Mean Corpuscular HGB Conc 34.7 g/dL Normal 32.5-35.6 [facility] Comment on above: Order Comment: Reaso n for Exam Type 2 diabetes mellitus with other specified complication Performed By: #### L DLD, TSH3 wRFLX, CMP, LIPID, CBC #### [facility] [address] [place] [address] [place] Monocytes (Bld) [#/Vol] 0.6 10*3/uL Normal 0.0-0.8 [facility] Comment on above: Order Comment: Reaso n for Exam Type 2 diabetes mellitus with other specified complication Performed By: #### L DLD, TSH3 wRFLX, CMP, LIPID, CBC #### [facility] [address] [place] [address] [place] Monocytes/100 WBC (Bld) 8.3 % Normal . [facility] Comment on above: Order Comment: Reaso n for Exam Type 2 diabetes mellitus with other specified complication Performed By: #### L DLD, TSH3 wRFLX, CMP, LIPID, CBC #### [facility] [address] [place] [address] [place] Neutrophils (Bld) [#/Vol] 4.5 10*3/uL Normal 1.8-7.7 [facility] Comment on above: Order Comment: Reaso n for Exam Type 2 diabetes mellitus with other specified complication Performed By: #### L DLD, TSH3 wRFLX, CMP, LIPID, CBC #### [facility] [address] [place] [address] Neutrophils/100 WBC (Bld) 59.8 % Normal . [facility] Comment on above: Order Comment: Reaso n for Exam Type 2 diabetes mellitus with other specified complication Performed By: #### L DLD, TSH3 wRFLX, CMP, LIPID, CBC #### [facility] [address] [place] [address] [place] NRBC% 0.1 /100{WBC} Normal 0-0.5 [facility] Comment on above: Order Comment: Reaso n for Exam Type 2 diabetes mellitus with other specified complication Performed By: #### L DLD, TSH3 wRFLX, CMP, LIPID, CBC #### [facility] [address] [place] [address] [place] Platelet mean volume (Bld) [Entitic vol] 8.6 fL Normal 6.6-10.1 [facility] Comment on above: Order Comment: Reaso n for Exam Type 2 diabetes mellitus with other specified complication Performed By: #### L DLD, TSH3 wRFLX, CMP, LIPID, CBC #### [facility] [address] [place] [address] [facility] Platelets (Bld) [#/Vol] 172 10*3/uL Normal 150-450 [facility] Comment on above: Order Comment: Reaso n for Exam Type 2 diabetes mellitus with other specified complication Performed By: #### L DLD, TSH3 wRFLX, CMP, LIPID, CBC #### [facility] [address] RBC (Bld) [#/Vol] 5.46 10*6/uL Normal 3.90-5.60 [facility] Comment on above: Order Comment: Reaso n for Exam Type 2 diabetes mellitus with other specified complication Performed By: #### L DLD, TSH3 wRFLX, CMP, LIPID, CBC #### [facility] [address] WBC (Bld) [#/Vol] 7.5 10*3/uL Normal 4.1-10.5 [facility] Comment on above: Order Comment: Reaso n for Exam Type 2 diabetes mellitus with other specified complication Performed By: #### L DLD, TSH3 wRFLX, CMP, LIPID, CBC #### [facility] [address] Comprehensive Metabolic Pane yumi 04-25-2023 Albumin [Mass/Vol] 4.2 g/dL Normal 3.5-5.7 [facility] Comment on above: Order Comment: Reaso n for Exam Type 2 diabetes mellitus with other specified complication Performed By: #### L DLD, TSH3 wRFLX, CMP, LIPID, CBC #### [facility] [address] [place] [id number] [facility] Albumin/Globulin [Mass ratio] 1.7 {ratio} Normal [facility] Comment on above: Order Comment: Reaso n for Exam Type 2 diabetes mellitus with other specified complication Performed By: #### L DLD, TSH3 wRFLX, CMP, LIPID, CBC #### [facility] [address] ALP [Catalytic activity/Vol] 91 U/L Normal 34-104 [facility] Comment on above: Order Comment: Reaso n for Exam Type 2 diabetes mellitus with other specified complication Performed By: #### L DLD, TSH3 wRFLX, CMP, LIPID, CBC #### [facility] [address] ALT [Catalytic activity/Vol] 27 U/L Normal 7-52 [facility] Comment on above: Order Comment: Reaso n for Exam Type 2 diabetes mellitus with other specified complication Performed By: #### L DLD, TSH3 wRFLX, CMP, LIPID, CBC #### [facility] [address] [place] [address] Anion gap [Moles/Vol] 10.2 mmol/L Normal 6.0-15.0 [facility] Comment on above: Order Comment: Reaso n for Exam Type 2 diabetes mellitus with other specified complication Performed By: #### L DLD, TSH3 wRFLX, CMP, LIPID, CBC #### [facility] [address] [place] [address] [place] AST [Catalytic activity/Vol] 18 U/L Normal 13-39 [facility] Comment on above: Order Comment: Reaso n for Exam Type 2 diabetes mellitus with other specified complication Performed By: #### L DLD, TSH3 wRFLX, CMP, LIPID, CBC #### [facility] [address] [place] [address] [place] Bilirubin [Mass/Vol] 0.4 mg/dL Normal 0.3-1.0 [facility] Comment on above: Order Comment: Reaso n for Exam Type 2 diabetes mellitus with other specified complication Performed By: #### L DLD, TSH3 wRFLX, CMP, LIPID, CBC #### [facility] [address] [place] [address] Calcium [Mass/Vol] 9.4 mg/dL Normal 8.6-10.3 [facility] Comment on above: Order Comment: Reaso n for Exam Type 2 diabetes mellitus with other specified complication Performed By: #### L DLD, TSH3 wRFLX, CMP, LIPID, CBC #### [facility] [address] [place] [address] Chloride [Moles/Vol] 96 mmol/L Low 98-107 [facility] Comment on above: Order Comment: Reaso n for Exam Type 2 diabetes mellitus with other specified complication Performed By: #### L DLD, TSH3 wRFLX, CMP, LIPID, CBC #### [facility] [address] [place] [address] CO2 [Moles/Vol] 31.1 mmol/L High 21.0-31.0 [facility] Comment on above: Order Comment: Reaso n for Exam Type 2 diabetes mellitus with other specified complication Performed By: #### L DLD, TSH3 wRFLX, CMP, LIPID, CBC #### [facility] [address] [place] [address] Creatinine [Mass/Vol] 1.37 mg/dL High 0.70-1.30 [facility] Comment on above: Order Comment: Reaso n for Exam Type 2 diabetes mellitus with other specified complication Performed By: #### L DLD, TSH3 wRFLX, CMP, LIPID, CBC #### [facility] [address] [place] [address] GFR/1.73 sq M.predicted MDRD (S/P/Bld) [Vol rate/Area] mL/min/{1.73_m2} [facility] Comment on above: Order Comment: Reaso n for Exam Type 2 diabetes mellitus with other specified complication Performed By: #### L DLD, TSH3 wRFLX, CMP, LIPID, CBC #### [facility] [address] [place] [address] Globulin (S) [Mass/Vol] 2.5 g/dL [facility] Comment on above: Order Comment: Reaso n for Exam Type 2 diabetes mellitus with other specified complication Performed By: #### L DLD, TSH3 wRFLX, CMP, LIPID, CBC #### [facility] [address] [place] [address] Glucose [Mass/Vol] 447 mg/dL High 70-100 [facility] Comment on above: Order Comment: Reaso n for Exam Type 2 diabetes mellitus with other specified complication Result Comment: [facility] Glucose Reference Range is dependent on time and content of last meal. Glucose of more than 200 mg/dL in a nonstressed, ambulatory subject supports the diagnosis of Diabetes Mellitus. ADA recommended reference range Performed By: #### L DLD, TSH3 wRFLX, CMP, LIPID, CBC #### [facility] [address] [place] [id number] [facility] Potassium [Moles/Vol] 4.3 mmol/L Normal 3.5-5.1 [facility] Comment on above: Order Comment: Reaso n for Exam Type 2 diabetes mellitus with other specified complication Performed By: #### L DLD, TSH3 wRFLX, CMP, LIPID, CBC #### [facility] [address] Protein [Mass/Vol] 6.7 g/dL Normal 6.4-8.9 [facility] Comment on above: Order Comment: Reaso n for Exam Type 2 diabetes mellitus with other specified complication Performed By: #### L DLD, TSH3 wRFLX, CMP, LIPID, CBC #### [facility] [address] [place] [id number] [place] Sodium [Moles/Vol] 133 mmol/L Low 136-145 [facility] Comment on above: Order Comment: Reaso n for Exam Type 2 diabetes mellitus with other specified complication Performed By: #### L DLD, TSH3 wRFLX, CMP, LIPID, CBC #### [facility] [address] [place] [id number] [place] Urea nitrogen [Mass/Vol] 22 mg/dL Normal 7-25 [facility] Comment on above: Order Comment: Reaso n for Exam Type 2 diabetes mellitus with other specified complication Performed By: #### L DLD, TSH3 wRFLX, CMP, LIPID, CBC #### [facility] [address] [place] [id number] [place] Creatinine [Mass/volume] in Serum or PlasmaOrdered By: Lynn Botello on 04-25-2023 Creatinine [Mass/Vol] 1.37 mg/dL 0.70-1.30 [facility] Eosinophils Auto (Bld) [#/Vo l]Ordered By: Lynn Botello on 04-25-2023 Eosinophils (Bld) [#/Vol] 0.2 10*3/uL 0.0-0.45 [facility] Eosinophils/100 WBC Auto (Bl d)Ordered By: Lynn Botello on 04-25-2023 Eosinophils/100 WBC (Bld) 2.3 % . [facility] Erythrocyte distribution wid th Auto (RBC) [Ratio]Ordered By: Lynn Botello on 04-25-2023 Erythrocyte distribution width (RBC) [Ratio] 13.3 % 12.0-14.8 [facility] Globulin Calc (S) [Mass/Vol] Ordered By: Lynn Botello on 04-25-2023 Globulin (S) [Mass/Vol] 2.5 g/dL [facility] Glucose [Mass/volume] in Ser um or PlasmaOrdered By: Lynn Botello on 04-25-2023 Glucose [Mass/Vol] 447 mg/dL 70-100 [facility] Comment on above: ADA recommended refe rence rangeRandom Glucose Reference Range is dependent on time and content of last meal. Glucose of more than 200 mg/dL in a nonstressed, ambulatory subject supports the diagnosis of Diabetes Mellitus. Hematocrit Auto (Bld) [Volum e fraction]Ordered By: Lynn Botello on 04-25-2023 Hematocrit (Bld) [Volume fraction] 48.0 % 38.8-50.0 [facility] Hemoglobin [Mass/volume] in BloodOrdered By: Lynn Botello on 04-25-2023 Hemoglobin (Bld) [Mass/Vol] 16.7 g/dL 13.0-17.0 [facility] LDL Cholesterol Measuredon 1 06-26-2022 LDL Cholesterol Measured 90 mg/dL Normal 0-100 [facility] Comment on above: Order Comment: Reaso n for Exam Type 2 diabetes mellitus with other specified complication Result Comment: LDL ATP III CLASSIFICATION LDL less than 100 mg/dL Optimal LDL 100-129 mg/dL Near or above optimal LDL 130-159 mg/dL Borderline high LDL 160-189 mg/dL High LDL greater than 189 mg/dL Very high Performed By: #### L DLD, TSH3 wRFLX, CMP, LIPID, CBC #### [facility] [address] [place] [id number] [facility] Leukocytes [#/volume] correc janelle for nucleated erythrocytes in Blood by Automated counOrdered By: Lynn Botello on 04-25-2023 WBC corrected for nucl RBC Auto (Bld) [#/Vol] 7.5 10*3/uL 4.1-10.5 [facility] Lipid Panelon 04-25-2023 Cholesterol [Mass/Vol] 190 mg/dL Normal 140-200 [facility] Comment on above: Order Comment: Reaso n for Exam Type 2 diabetes mellitus with other specified complication Result Comment: Chol less than 200 mg/dl low risk Chol 201-239 mg/dl borderline risk Chol 240 mg/dl and greater high risk Performed By: #### L DLD, TSH3 wRFLX, CMP, LIPID, CBC #### [facility] [address] Cholesterol in HDL [Mass/Vol] 35 mg/dL Normal 23-92 [facility] Comment on above: Order Comment: Reaso n for Exam Type 2 diabetes mellitus with other specified complication Result Comment: HDL CHOL ATP-III CLASSIFICATION Cardiovascular Risk HDL > or equal to 60 mg/dL LOW HDL < 40 mg/dL HIGH Performed By: #### L DLD, TSH3 wRFLX, CMP, LIPID, CBC #### [facility] [address] Cholesterol.total/Chol esterol in HDL [Mass ratio] 5.4 {ratio} Normal <5.0 [facility] Comment on above: Order Comment: Reaso n for Exam Type 2 diabetes mellitus with other specified complication Performed By: #### L DLD, TSH3 wRFLX, CMP, LIPID, CBC #### [facility] [address] [place] [id number] [facility] LDL Cholesterol,Calculated Not performed Normal 0-100 [facility] Comment on above: Order Comment: Reaso n for Exam Type 2 diabetes mellitus with other specified complication Performed By: #### L DLD, TSH3 wRFLX, CMP, LIPID, CBC #### [facility] [address] Triglyceride w/Reflex 646 mg/dL High 0-149 [facility] Comment on above: Order Comment: Reaso n for Exam Type 2 diabetes mellitus with other specified complication Result Comment: TRIG ATP III CLASSIFICATION TRIG less than 150 mg/dL Normal TRIG 150-199 mg/dL Borderline high TRIG 200-500 mg/dL High TRIG greater than 500 mg/dL Very high Standard traceable to the Center for Disease Conrtrol and Prevention (CDC) test method. If the triglyceride result is greater than 400, LDLC and related calculations cannot be calculated and resulted. Performed By: #### L DLD, TSH3 wRFLX, CMP, LIPID, CBC #### [facility] [address] VLDL CHOLESTEROL 129 mg/dL Normal [facility] Comment on above: Order Comment: Reaso n for Exam Type 2 diabetes mellitus with other specified complication Performed By: #### L DLD, TSH3 wRFLX, CMP, LIPID, CBC #### [facility] [address] [id number] [facility] Lymphocytes Auto (Bld) [#/Vo l]Ordered By: Lynn Botello on 04-25-2023 Lymphocytes (Bld) [#/Vol] 2.2 10*3/uL 1.00-4.8 [facility] Lymphocytes/100 WBC Auto (Bl d)Ordered By: Lynn Botello on 04-25-2023 Lymphocytes/100 WBC (Bld) 28.9 % . [facility] MCH Auto (RBC) [Entitic mass ]Ordered By: Lynn Botello on 04-25-2023 MCH (RBC) [Entitic mass] 30.5 pg 27.5-35.2 [facility] MCHC Auto (RBC) [Mass/Vol]Or dered By: Lynn Botello on 04-25-2023 MCHC (RBC) [Mass/Vol] 34.7 g/dL 32.5-35.6 [facility] MCV Auto (RBC) [Entitic vol] Ordered By: Lynn Botello on 04-25-2023 MCV (RBC) [Entitic vol] 87.8 fL 83.5-101 [facility] Monocytes Auto (Bld) [#/Vol] Ordered By: Lynn Botello on 04-25-2023 Monocytes (Bld) [#/Vol] 0.6 10*3/uL 0.0-0.8 [facility] Monocytes/100 WBC Auto (Bld) Ordered By: Lynn Botello on 04-25-2023 Monocytes/100 WBC (Bld) 8.3 % . [facility] Neutrophils Auto (Bld) [#/Vo l]Ordered By: Lynn Botello on 04-25-2023 Neutrophils (Bld) [#/Vol] 4.5 10*3/uL 1.8-7.7 [facility] Neutrophils/100 WBC Auto (Bl d)Ordered By: Lynn Botello on 04-25-2023 Neutrophils/100 WBC (Bld) 59.8 % . [facility] No Panel InformationOrdered By: Lynn Botello on 04-25-2023 Estimated GFR (CKD-EPI) > 60.0 mL/Min [facility] Creatinine Clearance (Chem N/A [facility] Nucleated erythrocytes [Pres ence] in Blood by Automated countOrdered By: Lynn Botello on 04-25-2023 Nucleated RBC Auto Ql (Bld) 0.1 /100{WBC} 0-0.5 [facility] Platelet mean volume Auto (B ld) [Entitic vol]Ordered By: Lynn Botello on 04-25-2023 Platelet mean volume (Bld) [Entitic vol] 8.6 fL 6.6-10.1 [facility] Platelets Auto (Bld) [#/Vol] Ordered By: Lynn Botello on 04-25-2023 Platelets (Bld) [#/Vol] 172 10*3/uL 150-450 [facility] Potassium [Moles/volume] in Serum or PlasmaOrdered By: Lynn Botello on 04-25-2023 Potassium [Moles/Vol] 4.3 mmol/L 3.5-5.1 [facility] Protein [Mass/volume] in Ser um or PlasmaOrdered By: Lynn Botello on 04-25-2023 Protein [Mass/Vol] 6.7 g/dL 6.4-8.9 [facility] RBC Auto (Bld) [#/Vol]Ordere d By: Lynn Botello on 04-25-2023 RBC (Bld) [#/Vol] 5.46 10*6/uL 3.90-5.60 [facility] Serum or plasma albumin/glob ulin mass ratioOrdered By: Lynn Botello on 04-25-2023 Albumin/Globulin [Mass ratio] 1.7 {ratio} [facility] Serum or plasma anion gap de terminationOrdered By: Lynn Botello on 04-25-2023 Anion gap [Moles/Vol] 10.2 mmol/L 6.0-15.0 [facility] Serum or plasma high density lipoprotein (HDL) cholesterol measurementOrdered By: Lynn Botello on 04-25-2023 Cholesterol in HDL [Mass/Vol] 35 mg/dL 23-92 [facility] Comment on above: HDL CHOL ATP-III CLA SSIFICATION Cardiovascular RiskHDL > or equal to 60 mg/dL LOWHDL < 40 mg/dL HIGH Serum or plasma total choles terol/high density lipoprotein (HDL) cholesterol mass ratOrdered By: Lynn Botello on 04-25-2023 Cholesterol.total/Chol esterol in HDL [Mass ratio] 5.4 {ratio} <5.0 [facility] Sodium [Moles/volume] in Ser um or PlasmaOrdered By: Lynn Botello on 04-25-2023 Sodium [Moles/Vol] 133 mmol/L 136-145 [facility] Thyroid Stim Hormone w/Rflxo n 04-25-2023 Thyroid Stim Hormone w/Rflx 1.97 u[iU]/mL Normal 0.45-5.33 [facility] Comment on above: Order Comment: Reaso n for Exam Type 2 diabetes mellitus with other specified complication Result Comment: PERF ORMED BY: [facility] [address] [place] [address] PATHOLOGIST [employer] ALYSSA MOSQUEDA M.D. Performed By: #### L DLD, TSH3 wRFLX, CMP, LIPID, CBC #### [facility] [address] [id number] [facility] Thyrotropin [Units/volume] i n Serum or PlasmaOrdered By: Lynn Botello on 04-25-2023 TSH Qn 1.97 m[IU]/L 0.45-5.33 [facility] Triglyceride [Mass/volume] i n Serum or PlasmaOrdered By: Lynn Botello on 04-25-2023 Triglyceride [Mass/Vol] 646 mg/dL 0-149 [facility] Comment on above: If the triglyceride result is greater than 400, LDLC and related calculations cannot be calculated and resulted.TRIG ATP III CLASSIFICATIONTRIG less than 150 mg/dL NormalTRIG 150-199 mg/dL Borderline highTRIG 200-500 mg/dL High TRIG greater than 500 mg/dL Very highStandard traceable to the Center for Disease Conrtrol and Prevention (CDC) test method. 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 PROCEDURE: Color-flow duplex scanning is used to interrogate the extracranial carotid arterial system, as well as both vertebral arteries. The proximal right internal carotid artery shows a highest peak systolic velocity of 75.7 cm/s with an end-diastolic velocity of 24.6 cm/s . The mid internal carotid artery measures 75.2 cm/s peak systolic with an end-diastolic velocity of 32.4 cm/s . The distal segment measures 75.2 cm/s peak systolic with an end diastolic velocity of 28 cm/s . The velocities of the right common carotid artery are 78.1 cm/s peak systolic and 21.5 cm/s end- diastolic proximally and 85.5 cm/s peak systolic and 29.5 cm/s end-diastolic distally. The peak systolic velocity ratio of the internal to the common carotid artery is 0.89 . The right external carotid artery measures 115 cm/s peak systolic. The right vertebral artery is patent at 41.9 cm/s peak systolic and with antegrade flow. The proximal left internal carotid artery shows a highest peak systolic velocity of 81.6 cm/s with an end-diastolic velocity of 31.5 cm/s . The mid internal carotid artery measures 79.1 cm/s peak systolic with an end-diastolic velocity of 36.4 cm/s . The distal segment measures 65.1 cm/s peak systolic with an end diastolic velocity of 26.7 cm/s . The velocities of the left common carotid artery are 98.2 cm/s peak systolic and 30.2 cm/s end-diastolic proximally and 93.4 cm/s peak systolic and 33.9 cm/s end-diastolic distally. The peak systolic velocity ratio of the internal to the common carotid artery is 0.87 . The left external carotid artery measures 273 cm/s peak systolic. The left vertebral artery is patent at 55.3 cm/s peak systolic with antegrade flow. US/US carotid doppler BI IMPRESSION: NO HEMODYNAMICALLY SIGNIFICANT STENOSIS OF EITHER EXTRACRANIAL INTERNAL CAROTID ARTERY. BOTH VERTEBRAL ARTERIES ARE PATENT WITH ANTEGRADE FLOW. Impression dictated by: Cyrus Carrillo MD04/25/2023 3:20 PM Dictation Location: [place] [address] Tech: Melany Beauchamp Transcribed By: [facility] 04/25/23 1520 Dictated By: Cyrus Carrillo MD 04/25/23 1519 Signed By: 04/25/23 1520 Normal [facility] Urea nitrogen [Mass/volume] in Serum or PlasmaOrdered By: Lynn Botello on 04-25-2023 Urea nitrogen [Mass/Vol] 22 mg/dL 725 [facility] WBC Auto (Bld) [#/Vol]Ordere d By: Lynn Botello on 04-25-2023 WBC (Bld) [#/Vol] 7.5 10*3/uL 4.1-10.5 [facility] STR cardiac stress/regularon 01-24-2023 STR cardiac stress/regular [facility] Main [address] [address] Cardiac Stress Test Signed Patient: Silverio Barahona MR#: [id number] 046 : 1970 Acct:[id number] Age/Sex: 52 / M ADM Date: 01/24/23 Loc: Room: Type: [facility] Attending Dr: Lynn GARCIA Copies to: Reagan Perkins MD, [facility] JOSE Hillman Ordering Provider: JOSE Hillman Date of Service: 01/24/23 STR/STR cardiac stress/regular: Diastolic heart failure, unspecified HF chronicity;Other brenda ORDERED BY: JOSE Zacarias INDICATIONS: A 52-year-old patient with heart failure. Resting ECG revealed normal sinus rhythm with a rate of 100 beats per minute. Resting blood pressure 126/80 mmHg. The patient was exercised on a Marcus protocol for 9 minutes and 31 seconds, achieving a maximum heart rate 148 beats per minute, which represented 89% of predicted maximum heart rate and workload of 10.9 METS. Blood pressure torsten to 150/72 mmHg, and the test ended due to legs fatigue. During exercise, there were no ischemic ST segment abnormalities noted. No symptoms of chest pain were reported by the patient and no cardiac arrhythmias were induced by exercise. The patient demonstrated appropriate hemodynamic response to exercise with normal heart rate recovery. CONCLUSION: 1. Normal graded exercise tolerance test after completing 9 minutes and 31 seconds on a Marcus protocol and achieving 89% of predicted maximum heart rate and workload of 10.9 METS. 2. No chest pain, cardiac arrhythmias of any significance, or ischemic ST segment abnormalities induced by exercise with appropriate hemodynamic response to exercise with normal heart rate recovery and achievement of Kirk treadmill score of 10+, which is favorable. No previous studies are available for comparison. Transcribed By: NTS 01/24/23 1635 Dictated By: Reagan Perkins MD, FAC 01/24/23 1624 Signed By: 01/25/23 0928 [facility] echo transthoracicon E[facility] echo transthoracic [facility] Main [place] [address] [place] [address] Echocardiogram Signed Patient: Silverio Barahona MR#: [id number] 046 : 1970 Acct:[id number] Age/Sex: 52 / M ADM Date: 12/31/22 Loc: Room: Type: [facility] Attending Dr: Lynn GARCIA Ordering Provider: JOSE Hillman Date of Service: 12/31/22 [facility] echo transthoracic: Other chest pain Copies to: Reagan Perkins MD, FACC JOSE Hillman Weight: 200 lb Performed By: CANDACE Khan BSA: 2.1 m2 BP: 124/82 mmHg HR: 90 Reason For Study: Other chest pain History: DM,Smoker,kidney cancer, CVA, TIA, Mitral valve vegetation 2019, family history of CAD Interpretation Summary The left ventricular size, thickness and function are normal The left ventricular wall motion is normal. Ejection Fraction = 60-65%. A variety of Doppler measurements indicate impaired left ventricular relaxation, which is associated with grade I/IV or mild diastolic dysfunction. There is no mitral regurgitation noted. Procedure/Quality: A two-dimensional transthoracic echocardiogram with color flow and Doppler was performed. The study was technically good in quality. Left Ventricle: The left ventricular size, thickness and function are normal. Ejection Fraction = 60-65%. A variety of Doppler measurements indicate impaired left ventricular relaxation, which is associated with grade I/IV or mild diastolic dysfunction. The left ventricular wall motion is normal. Left Atrium: The left atrium appears normal in size. The atrial septum appears normal. Right Atrium: The right atrium appears normal in size. Right Ventricle: The right ventricular size, thickness and function are normal. Aortic Valve: The aortic valve is normal in structure and function. No aortic regurgitation is present. Mitral Valve: The mitral valve is normal in structure and function. There is no mitral regurgitation noted. Tricuspid Valve: The tricuspid valve is normal in structure and function. No tricuspid regurgitation. Pulmonic Valve: The pulmonic valve is normal in structure and function. Arteries: The aortic root is normal size. Pericardium/Pleura: No pericardial effusion seen. There is no pleural effusion. IVC/Hepatic Viens: The inferior vena cava is normal in size, with a normal collapsibility index. Miscellaneous: No thrombus, vegetation or mass is seen. Measurements with Normals IVSd: 1.0 cm (0.7-1.1 cm)LVIDd: 4.4 cm (3.7-5.4 cm) LVPWd: 1.1 cm (0.7-1.1 cm)LVIDs: 2.8 cm (2.3-3.6 cm) LA dimension: 4.2 cm(2.3-4.0 cm)Ao root diam: 3.2 cm(2.0-3.6 cm) Doppler with Normals MV E max jason: 93.0 cm/sec (0.8-1.3m/s) MV A max jason: 115.3 cm/sec(0.0-0.0m/s) MV E/A: 0.81 (<1.5) MMode/2D Measurements Calculations TAPSE: 2.6 cm FS: 36.0 % Ao root area: 8.2 cm2 LVLd ap4: 8.2 cm RV S Jason: EDV(Teich): EDV(MOD-sp4): 18.6 cm/sec 87.7 ml 59.8 ml ESV(Teich): LVLs ap4: 7.1 cm 30.0 ml ESV(MOD-sp4): EF(Teich): 65.8 % 27.2 ml EF(MOD-sp4): 54.5 % __ SV(MOD-sp4): LAV(MOD-sp4): LA A2 area: 19.0 cm2 32.6 ml 24.2 ml LAV(MOD-sp2): LA A4 area: 11.8 cm2 61.2 ml LA length (vol): 4.6 cm LA vol: 41.0 ml LA vol index: 19.6 ml/m2 Doppler Measurements Calculations MV dec time: 0.12 sec E/E' lat: 8.4 E/E' med: 10.6 MV dec slope: 800.2 cm/sec2 Transcribed By: SCV Performed At: 12/31/22 1017 Signed By: Reagan Perkins MD, [facility] 12/31/22 1055 Normal [facility] Albumin [Mass/volume] in Ser um or PlasmaOrdered By: Lynn Botello on 06-26-2022 Albumin [Mass/Vol] 3.9 g/dL 3.2-5.5 [facility] Basophils Auto (Bld) [#/Vol] Ordered By: Lynn Botello on 06-26-2022 Basophils (Bld) [#/Vol] 0.1 10*3/uL 0.0-0.2 [facility] Basophils/100 WBC Auto (Bld) Ordered By: Lynn Botello on 06-26-2022 Basophils/100 WBC (Bld) 0.7 % . [facility] Cholesterol [Mass/volume] in Serum or PlasmaOrdered By: Lynn Botello on 06-26-2022 Cholesterol [Mass/Vol] 184 mg/dL 140-200 [facility] Comment on above: Chol less than 200 m g/dl low riskChol 201-239 mg/dl borderline riskChol 240 mg/dl and greater high risk Cholesterol in LDL Calc [Mas s/Vol]Ordered By: Lynn Botello on 06-26-2022 Cholesterol in LDL [Mass/Vol] 90 mg/dL 0-100 [facility] Comment on above: LDL ATP III CLASSIFI CATIONLDL less than 100 mg/dL OptimalLDL 100-129 mg/dL Near or above optimalLDL 130-159 mg/dL Borderline highLDL 160-189 mg/dL HighLDL greater than 189 mg/dL Very high Cholesterol in VLDL Calc [Ma ss/Vol]Ordered By: Lynn Botello on 06-26-2022 Cholesterol in VLDL [Mass/Vol] 61 mg/dL [facility] Creatinine and Glomerular fi ltration rate.predicted panel (S/P/Bld)Ordered By: Lynn Botello on 06-26-2022 Creatinine [Mass/Vol] 1.11 mg/dL 0.64-1.27 [facility] Eosinophils Auto (Bld) [#/Vo l]Ordered By: Lynn Botello on 06-26-2022 Eosinophils (Bld) [#/Vol] 0.3 10*3/uL 0.0-0.45 [facility] Eosinophils/100 WBC Auto (Bl d)Ordered By: Lynn Botello on 06-26-2022 Eosinophils/100 WBC (Bld) 3.3 % . [facility] Erythrocyte distribution wid th Auto (RBC) [Ratio]Ordered By: Lynn Botello on 06-26-2022 Erythrocyte distribution width (RBC) [Ratio] 13.6 % 12.0-14.8 [facility] Estimated glomerular filtrat ion rate (GFR) non- AmericanOrdered By: Lynn Botello on 06-26-2022 GFR/1.73 sq M.predicted among non-blacks MDRD (S/P/Bld) [Vol rate/Area] > 60 mL/Min [facility] Globulin Calc (S) [Mass/Vol] Ordered By: Lynn Botello on 06-26-2022 Globulin (S) [Mass/Vol] 2.6 g/dL [facility] Hematocrit Auto (Bld) [Volum e fraction]Ordered By: Lynn Botello on 06-26-2022 Hematocrit (Bld) [Volume fraction] 46.6 % 38.8-50.0 [facility] Hemoglobin [Mass/volume] in BloodOrdered By: Lynn Botello on 06-26-2022 Hemoglobin (Bld) [Mass/Vol] 15.5 g/dL 13.0-17.0 [facility] Leukocytes [#/volume] correc janelle for nucleated erythrocytes in Blood by Automated counOrdered By: Lynn Botello on 06-26-2022 WBC corrected for nucl RBC Auto (Bld) [#/Vol] 8.2 10*3/uL 4.1-10.5 [facility] Lymphocytes Auto (Bld) [#/Vo l]Ordered By: Lynn Botello on 06-26-2022 Lymphocytes (Bld) [#/Vol] 2.4 10*3/uL 1.00-4.8 [facility] Lymphocytes/100 WBC Auto (Bl d)Ordered By: Lynn Botello on 06-26-2022 Lymphocytes/100 WBC (Bld) 29.8 % . [facility] MCH Auto (RBC) [Entitic mass ]Ordered By: Lynn Botello on 06-26-2022 MCH (RBC) [Entitic mass] 29.8 pg 27.5-35.2 [facility] MCHC Auto (RBC) [Mass/Vol]Or dered By: Lynn Botello on 06-26-2022 MCHC (RBC) [Mass/Vol] 33.3 g/dL 32.5-35.6 [facility] MCV Auto (RBC) [Entitic vol] Ordered By: Lynn Botello on 06-26-2022 MCV (RBC) [Entitic vol] 89.5 fL 83.5-101 [facility] Monocytes Auto (Bld) [#/Vol] Ordered By: Lynn Botello on 06-26-2022 Monocytes (Bld) [#/Vol] 0.5 10*3/uL 0.0-0.8 [facility] Monocytes/100 WBC Auto (Bld) Ordered By: Lynn Botello on 06-26-2022 Monocytes/100 WBC (Bld) 6.2 % . [facility] Neutrophils Auto (Bld) [#/Vo l]Ordered By: Lynn Botello on 06-26-2022 Neutrophils (Bld) [#/Vol] 4.9 10*3/uL 1.8-7.7 [facility] Neutrophils/100 WBC Auto (Bl d)Ordered By: Lynn Botello on 06-26-2022 Neutrophils/100 WBC (Bld) 60.0 % . [facility] No Panel InformationOrdered By: Lynn Botello on 06-26-2022 Estimated GFR () > 60 mL/Min [facility] Comment on above: GFR estimated refere nce range: According to KDOQI guidelines, <60 ml/min/1.73m2 is sufficient to diagnose a patient with chronic kidney disease. Pharmacy Creatinine Clearance (Chem N/A [facility] Prostate Specific Antigen Screen 0.430 ng/mL 0.000-4.000 [facility] Nucleated erythrocytes [Pres ence] in Blood by Automated countOrdered By: Lynn Botello on 06-26-2022 Nucleated RBC Auto Ql (Bld) 0.1 /100{WBC} 0-0.5 [facility] Platelet mean volume Auto (B ld) [Entitic vol]Ordered By: Lynn Botello on 06-26-2022 Platelet mean volume (Bld) [Entitic vol] 9.4 fL 6.6-10.1 [facility] Platelets Auto (Bld) [#/Vol] Ordered By: Lynn Botello on 06-26-2022 Platelets (Bld) [#/Vol] 133 10*3/uL 150-450 [facility] Protein [Mass/volume] in Ser um or PlasmaOrdered By: Lynn Botello on 06-26-2022 Protein [Mass/Vol] 6.5 g/dL 6.1-7.9 [facility] RBC Auto (Bld) [#/Vol]Ordere d By: Lynn Botello on 06-26-2022 RBC (Bld) [#/Vol] 5.21 10*6/uL 3.90-5.60 [facility] Serum or plasma alanine quinn otransferase measurement without P-5'-P (enzymatic activiOrdered By: Lynn Botello on 06-26-2022 ALT No additional P-5'-P [Catalytic activity/Vol] 34 U/L 10-60 [facility] Serum or plasma albumin/glob ulin mass ratioOrdered By: Lynn Botello on 06-26-2022 Albumin/Globulin [Mass ratio] 1.5 {ratio} [facility] Serum or plasma alkaline malik sphatase measurement (enzymatic activity/volume)Ordered By: Lynn Botello on 06-26-2022 ALP [Catalytic activity/Vol] 81 U/L 32-92 [facility] Serum or plasma anion gap de terminationOrdered By: Lynn Botello on 06-26-2022 Anion gap [Moles/Vol] 11.6 mmol/L 6.0-15.0 [facility] Serum or plasma aspartate am inotransferase measurement (enzymatic activity/volume)Ordered By: Lynn Botello on 06-26-2022 AST [Catalytic activity/Vol] 27 U/L 10-42 [facility] Serum or plasma calcium fermín urement (mass/volume)Ordered By: Lynn Botello on 06-26-2022 Calcium [Mass/Vol] 9.1 mg/dL 8.2-10.2 [facility] Serum or plasma chloride jeffy surement (moles/volume)Ordered By: Lynn Botello on 06-26-2022 Chloride [Moles/Vol] 104 mmol/L 95-114 [facility] Serum or plasma glucose fermín urement (mass/volume)Ordered By: Lynn Botello on 06-26-2022 Glucose [Mass/Vol] 113 mg/dL 70-100 [facility] Comment on above: ADA recommended refe rence rangeRandom Glucose Reference Range is dependent on time and content of last meal. Glucose of more than 200 mg/dL in a nonstressed, ambulatory subject supports the diagnosis of Diabetes Mellitus. Serum or plasma high density lipoprotein (HDL) cholesterol measurementOrdered By: Lynn Botello on 06-26-2022 Cholesterol in HDL [Mass/Vol] 32 mg/dL 29-71 [facility] Comment on above: HDL CHOL ATP-III CLA SSIFICATION Cardiovascular RiskHDL > or equal to 60 mg/dL LOWHDL < 40 mg/dL HIGH Serum or plasma potassium me asurement (moles/volume)Ordered By: Lynn Botello on 06-26-2022 Potassium [Moles/Vol] 4.4 mmol/L 3.5-5.1 [facility] Serum or plasma sodium measu rement (moles/volume)Ordered By: Lynn Botello on 06-26-2022 Sodium [Moles/Vol] 138 mmol/L 136-146 [facility] Serum or plasma total biliru bin measurement (mass/volume)Ordered By: Lynn Botello on 06-26-2022 Bilirubin [Mass/Vol] 0.6 mg/dL 0.3-1.2 [facility] Serum or plasma total carbon dioxide measurement (moles/volume)Ordered By: Lynn Botello on 06-26-2022 CO2 [Moles/Vol] 26.8 mmol/L 22.0-30.0 [facility] Serum or plasma total choles terol/high density lipoprotein (HDL) cholesterol mass ratOrdered By: Lynn Botello on 06-26-2022 Cholesterol.total/Chol esterol in HDL [Mass ratio] 5.8 {ratio} <5.0 [facility] Serum or plasma urea nitroge n measurement (mass/volume)Ordered By: Lynn Botello on 06-26-2022 Urea nitrogen [Mass/Vol] 19 mg/dL 9-23 [facility] TSH DL <= 0.005 mIU/L QnOrde red By: Lynn Botello on 06-26-2022 TSH Qn 1.79 m[IU]/L 0.45-5.33 [facility] Triglyceride [Mass/volume] i n Serum or PlasmaOrdered By: Lynn Botello on 06-26-2022 Triglyceride [Mass/Vol] 309 mg/dL 35-149 [facility] Comment on above: TRIG ATP III CLASSIF ICATIONTRIG less than 150 mg/dL NormalTRIG 150-199 mg/dL Borderline highTRIG 200-500 mg/dL High TRIG greater than 500 mg/dL Very highStandard traceable to the Center for Disease Conrtrol and Prevention (CDC) test method. WBC Auto (Bld) [#/Vol]Ordere d By: Lynn Botello on 06-26-2022 WBC (Bld) [#/Vol] 8.2 10*3/uL 4.1-10.5 [facility] Albumin [Mass/volume] in Ser um or PlasmaOrdered By: Mara Page on 06-06-2022 Albumin [Mass/Vol] 4.0 g/dL 3.2-5.5 [facility] Basophils Auto (Bld) [#/Vol] Ordered By: Mara Page on 06-06-2022 Basophils (Bld) [#/Vol] 0.0 10*3/uL 0.0-0.2 [facility] Basophils/100 WBC Auto (Bld) Ordered By: Mara Page on 06-06-2022 Basophils/100 WBC (Bld) 0.6 % . [facility] Creatinine and Glomerular fi ltration rate.predicted panel (S/P/Bld)Ordered By: Mara Page on 06-06-2022 Creatinine [Mass/Vol] 1.35 mg/dL 0.64-1.27 [facility] Eosinophils Auto (Bld) [#/Vo l]Ordered By: Mara Page on 06-06-2022 Eosinophils (Bld) [#/Vol] 0.3 10*3/uL 0.0-0.45 [facility] Eosinophils/100 WBC Auto (Bl d)Ordered By: Mara Page on 06-06-2022 Eosinophils/100 WBC (Bld) 3.6 % . [facility] Erythrocyte distribution wid th Auto (RBC) [Ratio]Ordered By: Mara Page on 06-06-2022 Erythrocyte distribution width (RBC) [Ratio] 14.0 % 12.0-14.8 [facility] Estimated glomerular filtrat ion rate (GFR) non- AmericanOrdered By: aMra Page on 06-06-2022 GFR/1.73 sq M.predicted among non-blacks MDRD (S/P/Bld) [Vol rate/Area] 55 mL/Min [facility] Globulin Calc (S) [Mass/Vol] Ordered By: Mara Page on 06-06-2022 Globulin (S) [Mass/Vol] 2.7 g/dL [facility] Hematocrit Auto (Bld) [Volum e fraction]Ordered By: Mara Page on 06-06-2022 Hematocrit (Bld) [Volume fraction] 45.3 % 38.8-50.0 [facility] Hemoglobin [Mass/volume] in BloodOrdered By: Mara Page on 06-06-2022 Hemoglobin (Bld) [Mass/Vol] 15.2 g/dL 13.0-17.0 [facility] Leukocytes [#/volume] correc janelle for nucleated erythrocytes in Blood by Automated counOrdered By: Mara Page on 06-06-2022 WBC corrected for nucl RBC Auto (Bld) [#/Vol] 8.2 10*3/uL 4.1-10.5 [facility] Lymphocytes Auto (Bld) [#/Vo l]Ordered By: Mara Page on 06-06-2022 Lymphocytes (Bld) [#/Vol] 2.6 10*3/uL 1.00-4.8 [facility] Lymphocytes/100 WBC Auto (Bl d)Ordered By: Mara Page on 06-06-2022 Lymphocytes/100 WBC (Bld) 31.4 % . [facility] MCH Auto (RBC) [Entitic mass ]Ordered By: Mara Page on 06-06-2022 MCH (RBC) [Entitic mass] 29.8 pg 27.5-35.2 [facility] MCHC Auto (RBC) [Mass/Vol]Or dered By: Mara Page on 06-06-2022 MCHC (RBC) [Mass/Vol] 33.4 g/dL 32.5-35.6 [facility] MCV Auto (RBC) [Entitic vol] Ordered By: Mara Page on 06-06-2022 MCV (RBC) [Entitic vol] 89.3 fL 83.5-101 [facility] Monocytes Auto (Bld) [#/Vol] Ordered By: Mara Page on 06-06-2022 Monocytes (Bld) [#/Vol] 0.6 10*3/uL 0.0-0.8 [facility] Monocytes/100 WBC Auto (Bld) Ordered By: Mara Page on 06-06-2022 Monocytes/100 WBC (Bld) 7.9 % . [facility] Neutrophils Auto (Bld) [#/Vo l]Ordered By: Mara Page on 06-06-2022 Neutrophils (Bld) [#/Vol] 4.6 10*3/uL 1.8-7.7 [facility] Neutrophils/100 WBC Auto (Bl d)Ordered By: Mara Page on 06-06-2022 Neutrophils/100 WBC (Bld) 56.5 % . [facility] No Panel InformationOrdered By: Mara Page on 06-06-2022 Estimated GFR () > 60 mL/Min [facility] Comment on above: GFR estimated refere nce range: According to KDOQI guidelines, <60 ml/min/1.73m2 is sufficient to diagnose a patient with chronic kidney disease. Pharmacy Creatinine Clearance (Chem 74.07 [facility] Nucleated erythrocytes [Pres ence] in Blood by Automated countOrdered By: Mara Page on 06-06-2022 Nucleated RBC Auto Ql (Bld) 0.1 /100{WBC} 0-0.5 [facility] Platelet mean volume Auto (B ld) [Entitic vol]Ordered By: Mara Page on 06-06-2022 Platelet mean volume (Bld) [Entitic vol] 8.4 fL 6.6-10.1 [facility] Platelets Auto (Bld) [#/Vol] Ordered By: Mara Page on 06-06-2022 Platelets (Bld) [#/Vol] 174 10*3/uL 150-450 [facility] Protein [Mass/volume] in Ser um or PlasmaOrdered By: Mara Page on 06-06-2022 Protein [Mass/Vol] 6.7 g/dL 6.1-7.9 [facility] RBC Auto (Bld) [#/Vol]Ordere d By: Mara Page on 06-06-2022 RBC (Bld) [#/Vol] 5.08 10*6/uL 3.90-5.60 [facility] Serum or plasma alanine quinn otransferase measurement without P-5'-P (enzymatic activiOrdered By: Mara Page on 06-06-2022 ALT No additional P-5'-P [Catalytic activity/Vol] 40 U/L 10-60 [facility] Serum or plasma albumin/glob ulin mass ratioOrdered By: Mara Page on 06-06-2022 Albumin/Globulin [Mass ratio] 1.5 {ratio} [facility] Serum or plasma alkaline malik sphatase measurement (enzymatic activity/volume)Ordered By: Mara Page on 06-06-2022 ALP [Catalytic activity/Vol] 82 U/L 32-92 [facility] Serum or plasma anion gap de terminationOrdered By: Mara Page on 06-06-2022 Anion gap [Moles/Vol] 14.0 mmol/L 6.0-15.0 [facility] Serum or plasma aspartate am inotransferase measurement (enzymatic activity/volume)Ordered By: Mara Page on 06-06-2022 AST [Catalytic activity/Vol] 36 U/L 10-42 [facility] Serum or plasma calcium fermín urement (mass/volume)Ordered By: Mara Page on 06-06-2022 Calcium [Mass/Vol] 10.0 mg/dL 8.2-10.2 [facility] Serum or plasma carcinoembry onic antigen measurement (mass/volume)Ordered By: Mara Page on 06-06-2022 Carcinoembryonic Ag [Mass/Vol] 4.8 ng/mL 0.0-3.0 [facility] Serum or plasma chloride jeffy surement (moles/volume)Ordered By: Mara Page on 06-06-2022 Chloride [Moles/Vol] 100 mmol/L 95-114 [facility] Serum or plasma glucose fermín urement (mass/volume)Ordered By: Mara Page on 06-06-2022 Glucose [Mass/Vol] 204 mg/dL 70-100 [facility] Comment on above: ADA recommended refe rence rangeRandom Glucose Reference Range is dependent on time and content of last meal. Glucose of more than 200 mg/dL in a nonstressed, ambulatory subject supports the diagnosis of Diabetes Mellitus. Serum or plasma potassium me asurement (moles/volume)Ordered By: Mara Page on 06-06-2022 Potassium [Moles/Vol] 4.5 mmol/L 3.5-5.1 [facility] Serum or plasma sodium measu rement (moles/volume)Ordered By: Mara Page on 06-06-2022 Sodium [Moles/Vol] 137 mmol/L 136-146 [facility] Serum or plasma total biliru bin measurement (mass/volume)Ordered By: Mara Page on 06-06-2022 Bilirubin [Mass/Vol] 0.6 mg/dL 0.3-1.2 [facility] Serum or plasma total carbon dioxide measurement (moles/volume)Ordered By: Mara Page on 06-06-2022 CO2 [Moles/Vol] 27.5 mmol/L 22.0-30.0 [facility] Serum or plasma urea nitroge n measurement (mass/volume)Ordered By: Mara Page on 06-06-2022 Urea nitrogen [Mass/Vol] 21 mg/dL 9 [facility] WBC Auto (Bld) [#/Vol]Ordere d By: Mara Page on 06-06-2022 WBC (Bld) [#/Vol] 8.2 10*3/uL 4.1-10.5 [facility] COVID CepheidOrdered By: Ramin Anne on 05-14-2022 SARS-CoV-2 (COVID-19) Ab IA Ql Negative Negative [facility] Comment on above: This is a duplicate [email or web address] Xpert Xpress CoV-2/Flu/RSV Plus RNA by RT-PCR result to be used for statistical tracking purpose only. SARS-CoV-2 (COVID-19) RNA JULIETTE+probe Ql (Unsp spec) [facility] Glucose Glucometer (BldC) [M ass/Vol]Ordered By: Devon Damico on 02-28-2022 Glucose [Mass/Vol] 203 mg/dL [facility] Comment on above: Random Glucose Refer ence Range is dependent on time and content of last meal. Glucose of more than 200 mg/dL in a nonstressed, ambulatory subject supports the diagnosis of Diabetes Mellitus. COVID-19 Positive/NegativeOr dered By: Devon Damico on 02-26-2022 SARS-CoV-2 (COVID-19) N gene JULIETTE+probe Ql (Resp) Negative Negative [facility] Comment on above: Testing for SARS-CoV -2 by RT-PCRThis test was developed and its performance characteristics determined by [employer] ([employer]) and validated at the [facility]. This test has not been FDA cleared or approved. This test has been authorized by FDA under an Emergency Use Authorization (EUA). This test has been validated in accordance with the FDA's Guidance Document (Policy for Diagnostics Testing in Laboratories Certified to Perform High Complexity Testing under CLIA prior to Emergency Use Authorization for Coronavirus Disease-2019 during the Public Health Emergency) issued on August 13, 2019. This test is only authorized for the duration of time the declaration that circumstances exist justifying the authorization of the emergency use of in vitro diagnostic tests for detection of SARS-CoV-2 virus and/or diagnosis of COVID-19 infection under section 564(b)(1) of the Act, 21 U.S.C. 360bbb-3(b)(1), unless the authorization is terminated or revoked sooner. Automated erythrocytes count in urine sediment (number/area)Ordered By: Lynn Botello on 02-14-2022 RBC Auto (Urine sed) [#/Area] None seen [HPF] 0-4 [facility] Automated leukocytes count i n urine sediment (number/area)Ordered By: Lynn Botello on 02-14-2022 WBC Auto (Urine sed) [#/Area] None seen [HPF] 0-4 [facility] Basophils Auto (Bld) [#/Vol] Ordered By: Lynn Botello on 02-14-2022 Basophils (Bld) [#/Vol] 0.1 10*3/uL 0.0-0.2 [facility] Basophils/100 WBC Auto (Bld) Ordered By: Lynn Botello on 02-14-2022 Basophils/100 WBC (Bld) 0.6 % . [facility] Bilirubin Test strip Ql (U)O rdered By: Lynn Botello on 02-14-2022 Bilirubin Ql (U) Negative Negative [facility] Blood hemoglobin measurement (mass/volume)Ordered By: Lynn Botello on 02-14-2022 Hemoglobin (Bld) [Mass/Vol] 15.5 g/dL 13.0-17.0 [facility] Blood leukocytes automated c ount (number/volume)Ordered By: Lynn Botello on 02-14-2022 WBC (Bld) [#/Vol] 9.6 10*3/uL 4.5-11.0 [facility] Body fluid albumin measureme nt (mass/volume)Ordered By: Lynn Botello on 02-14-2022 Albumin (Body fld) [Mass/Vol] 4.0 g/dL 3.2-5.5 [facility] Color Auto (U)Ordered By: Shaniqua Botello on 02-14-2022 Color (U) Yellow Yellow [facility] Creatinine and Glomerular fi ltration rate.predicted panel (S/P/Bld)Ordered By: Lynn Botello on 02-14-2022 Creatinine [Mass/Vol] 1.28 mg/dL 0.64-1.27 [facility] Eosinophils Auto (Bld) [#/Vo l]Ordered By: Lynn Botello on 02-14-2022 Eosinophils (Bld) [#/Vol] 0.1 10*3/uL 0.0-0.45 [facility] Eosinophils/100 WBC Auto (Bl d)Ordered By: Lynn Botello on 02-14-2022 Eosinophils/100 WBC (Bld) 1.3 % . [facility] Erythrocyte distribution wid th Auto (RBC) [Ratio]Ordered By: Lynn Botello on 02-14-2022 Erythrocyte distribution width (RBC) [Ratio] 14.0 % 12.0-14.8 [facility] Estimated glomerular filtrat ion rate (GFR) non- AmericanOrdered By: Lynn Botello on 02-14-2022 GFR/1.73 sq M.predicted among non-blacks MDRD (S/P/Bld) [Vol rate/Area] 59 mL/Min [facility] Globulin Calc (S) [Mass/Vol] Ordered By: Lynn Botello on 02-14-2022 Globulin (S) [Mass/Vol] 3.1 g/dL [facility] Hematocrit Auto (Bld) [Volum e fraction]Ordered By: Lynn Botello on 02-14-2022 Hematocrit (Bld) [Volume fraction] 46.3 % 38.8-50.0 [facility] Ketones Auto test strip (U) [Mass/Vol]Ordered By: Lynn Botello on 02-14-2022 Ketones (U) [Mass/Vol] Negative Negative [facility] - Hematology and Cell countsOrdered By: Lynn Botello on 02-14-2022 Nucleated RBC/100 WBC (Bld) [Ratio] 0.1 % 0-0.5 [facility] Laboratory - UrinalysisOrder ed By: Lynn Botello on 02-14-2022 Hyaline casts LM Ql (Urine sed) None seen [LPF] 0-8 [facility] Lymphocytes Auto (Bld) [#/Vo l]Ordered By: Lynn Botello on 02-14-2022 Lymphocytes (Bld) [#/Vol] 2.5 10*3/uL 1.00-4.8 [facility] Lymphocytes/100 WBC Auto (Bl d)Ordered By: Lynn Botello on 02-14-2022 Lymphocytes/100 WBC (Bld) 26.2 % . [facility] MCH Auto (RBC) [Entitic mass ]Ordered By: Lynn Botello on 02-14-2022 MCH (RBC) [Entitic mass] 29.7 pg 27.5-35.2 [facility] MCHC Auto (RBC) [Mass/Vol]Or dered By: Lynn Botello on 02-14-2022 MCHC (RBC) [Mass/Vol] 33.6 g/dL 32.5-35.6 [facility] MCV Auto (RBC) [Entitic vol] Ordered By: Lynn Botello on 02-14-2022 MCV (RBC) [Entitic vol] 88.6 fL 83.5-101 [facility] Monocytes Auto (Bld) [#/Vol] Ordered By: Lynn Botello on 02-14-2022 Monocytes (Bld) [#/Vol] 0.6 10*3/uL 0.0-0.8 [facility] Monocytes/100 WBC Auto (Bld) Ordered By: Lynn Botello on 02-14-2022 Monocytes/100 WBC (Bld) 6.5 % . [facility] Neutrophils Auto (Bld) [#/Vo l]Ordered By: Lynn Botello on 02-14-2022 Neutrophils (Bld) [#/Vol] 6.3 10*3/uL 1.8-7.7 [facility] Neutrophils/100 WBC Auto (Bl d)Ordered By: Lynn Botello on 02-14-2022 Neutrophils/100 WBC (Bld) 65.4 % . [facility] Nitrite Test strip Ql (U)Ord ered By: Lynn Botello on 02-14-2022 Nitrite Ql (U) Negative Negative [facility] No Panel InformationOrdered By: Lynn Botello on 02-14-2022 Estimated GFR () > 60 mL/Min [facility] Comment on above: GFR estimated refere nce range: According to KDOQI guidelines, <60 ml/min/1.73m2 is sufficient to diagnose a patient with chronic kidney disease. Pharmacy Creatinine Clearance (Chem N/A [facility] Platelet mean volume Auto (B ld) [Entitic vol]Ordered By: Lynn Botello on 02-14-2022 Platelet mean volume (Bld) [Entitic vol] 8.8 fL 6.6-10.1 [facility] Platelets Auto (Bld) [#/Vol] Ordered By: Lynn Botello on 02-14-2022 Platelets (Bld) [#/Vol] 185 10*3/uL 150-450 [facility] Protein Auto test strip (U) [Mass/Vol]Ordered By: Lynn Botello on 02-14-2022 Protein (U) [Mass/Vol] 30 mg/dL Negative Fi [facility] Protein [Mass/volume] in Ser um or PlasmaOrdered By: Lynn Botello on 02-14-2022 Protein [Mass/Vol] 7.1 g/dL 6.1-7.9 [facility] RBC Auto (Bld) [#/Vol]Ordere d By: Lynn Botello on 02-14-2022 RBC (Bld) [#/Vol] 5.22 10*6/uL 3.90-5.60 [facility] Serum or plasma alanine quinn otransferase measurement without P-5'-P (enzymatic activiOrdered By: Lynn Botello on 02-14-2022 ALT No additional P-5'-P [Catalytic activity/Vol] 32 U/L 1060 [facility] Serum or plasma albumin/glob ulin mass ratioOrdered By: Lynn Botello on 02-14-2022 Albumin/Globulin [Mass ratio] 1.3 {ratio} [facility] Serum or plasma alkaline malik sphatase measurement (enzymatic activity/volume)Ordered By: Lynn Botello on 02-14-2022 ALP [Catalytic activity/Vol] 85 U/L 32-92 [facility] Serum or plasma anion gap de terminationOrdered By: Lynn Botello on 02-14-2022 Anion gap [Moles/Vol] 14.5 mmol/L 6.0-15.0 [facility] Serum or plasma aspartate am inotransferase measurement (enzymatic activity/volume)Ordered By: Lynn Botello on 02-14-2022 AST [Catalytic activity/Vol] 23 U/L 10-42 [facility] Serum or plasma calcium fermín urement (mass/volume)Ordered By: Lynn Botello on 02-14-2022 Calcium [Mass/Vol] 9.4 mg/dL 8.2-10.2 [facility] Serum or plasma chloride jeffy surement (moles/volume)Ordered By: Lynn Botello on 02-14-2022 Chloride [Moles/Vol] 99 mmol/L 95-114 [facility] Serum or plasma glucose fermín urement (mass/volume)Ordered By: Lynn Botello on 02-14-2022 Glucose [Mass/Vol] 216 mg/dL 70-100 [facility] Comment on above: ADA recommended refe rence rangeRandom Glucose Reference Range is dependent on time and content of last meal. Glucose of more than 200 mg/dL in a nonstressed, ambulatory subject supports the diagnosis of Diabetes Mellitus. Serum or plasma potassium me asurement (moles/volume)Ordered By: Lynn Botello on 02-14-2022 Potassium [Moles/Vol] 4.5 mmol/L 3.5-5.1 [facility] Serum or plasma sodium measu rement (moles/volume)Ordered By: Lynn Botello on 02-14-2022 Sodium [Moles/Vol] 135 mmol/L 136-146 [facility] Serum or plasma total biliru bin measurement (mass/volume)Ordered By: Lynn Botello on 02-14-2022 Bilirubin [Mass/Vol] 0.6 mg/dL 0.3-1.2 [facility] Serum or plasma total carbon dioxide measurement (moles/volume)Ordered By: Lynn Botello on 02-14-2022 CO2 [Moles/Vol] 26.0 mmol/L 22.0-30.0 [facility] Serum or plasma urea nitroge n measurement (mass/volume)Ordered By: Lynn Botello on 02-14-2022 Urea nitrogen [Mass/Vol] 21 mg/dL 9-23 [facility] Specific gravity Auto test s trip (U) [Rel density]Ordered By: Lynn Botello on 02-14-2022 Specific gravity (U) [Rel density] 1.027 1.001-1.030 [facility] Squamous epithelial cells de tection in urine sediment by light microscopyOrdered By: Lynn Botello on 02-14-2022 Epithelial cells.squamous LM Ql (Urine sed) None seen [HPF] 0-2 [facility] TSH DL <= 0.005 mIU/L QnOrde red By: Lynn Botello on 02-14-2022 TSH Qn 2.11 m[IU]/L 0.45-5.33 [facility] Urine bacteria detection by automated methodOrdered By: Lynn Botello on 02-14-2022 Bacteria Auto Ql (U) None seen None Seen [facility] Urine clarity by refractomet ry automatedOrdered By: Lynn Botello on 02-14-2022 Clarity Refractometry automated (U) Clear Clear [facility] Urine glucose measurement by automated test strip (mass/volume)Ordered By: Lynn Botello on 02-14-2022 Glucose Auto test strip (U) [Mass/Vol] >=1000 mg/dL Normal [facility] Urine hemoglobin detection b y automated test stripOrdered By: Lynn Botello on 02-14-2022 Hemoglobin Auto test strip Ql (U) Negative Negative [facility] Urine leukocyte esterase det ection by automated test stripOrdered By: Lynn Botello on 02-14-2022 Leukocyte esterase Auto test strip Ql (U) Negative Negative [facility] Urobilinogen Auto test strip (U) [Mass/Vol]Ordered By: Lynn Botello on 02-14-2022 Urobilinogen (U) [Mass/Vol] Normal mg/dL Normal [facility] pH Auto test strip (U)Ordere d By: Lynn Botello on 02-14-2022 pH (U) 5.5 [pH] 5.0-9.0 [facility] Activated partial thrombopla stin time (aPTT) in platelet poor plasma by coagulation aOrdered By: Mohit Carlos on 12-27-2021 aPTT Coag (PPP) [Time] 33.8 s 25.1-36.5 [facility] Automated erythrocytes count in urine sediment (number/area)Ordered By: Mohit Carlos on 12-27-2021 RBC Auto (Urine sed) [#/Area] 0-1 [HPF] 0-4 [facility] Automated leukocytes count i n urine sediment (number/area)Ordered By: Mohit Carlos on 12-27-2021 WBC Auto (Urine sed) [#/Area] 0-1 [HPF] 0-4 [facility] Basophils Auto (Bld) [#/Vol] Ordered By: Mohit Carlos on 12-27-2021 Basophils (Bld) [#/Vol] 0.1 10*3/uL 0.0-0.2 [facility] Basophils/100 WBC Auto (Bld) Ordered By: Mohit Carlos on 12-27-2021 Basophils/100 WBC (Bld) 1.1 % . [facility] Bilirubin Test strip Ql (U)O rdered By: Mohit Carlos on 12-27-2021 Bilirubin Ql (U) Negative Negative [facility] Blood hemoglobin measurement (mass/volume)Ordered By: Mohit Carlos on 12-27-2021 Hemoglobin (Bld) [Mass/Vol] 15.7 g/dL 13.0-17.0 [facility] Blood leukocytes automated c ount (number/volume)Ordered By: Mohit Carlos on 12-27-2021 WBC (Bld) [#/Vol] 10.7 10*3/uL 4.5-11.0 [facility] Body fluid albumin measureme nt (mass/volume)Ordered By: Mohit Carlos on 12-27-2021 Albumin (Body fld) [Mass/Vol] 4.2 g/dL 3.2-5.5 [facility] Color Auto (U)Ordered By: Arnol Carlos on 12-27-2021 Color (U) Yellow Yellow [facility] Creatinine and Glomerular fi ltration rate.predicted panel (S/P/Bld)Ordered By: Mohit Carlos on 12-27-2021 Creatinine [Mass/Vol] 1.50 mg/dL 0.64-1.27 [facility] Direct bilirubin measurement Ordered By: Mohit Carlos on 12-27-2021 Bilirubin.direct [Mass/Vol] mg/dL 0.0-0.4 [facility] Eosinophils Auto (Bld) [#/Vo l]Ordered By: Mohit Carlos on 12-27-2021 Eosinophils (Bld) [#/Vol] 0.0 10*3/uL 0.0-0.45 [facility] Eosinophils/100 WBC Auto (Bl d)Ordered By: Mohit Carlos on 12-27-2021 Eosinophils/100 WBC (Bld) 0.4 % . [facility] Erythrocyte distribution wid th Auto (RBC) [Ratio]Ordered By: Mohit Carlos on 12-27-2021 Erythrocyte distribution width (RBC) [Ratio] 13.8 % 12.0-14.8 [facility] Estimated glomerular filtrat ion rate (GFR) non- AmericanOrdered By: Mohit Carlos on 12-27-2021 GFR/1.73 sq M.predicted among non-blacks MDRD (S/P/Bld) [Vol rate/Area] 49 mL/Min [facility] Globulin Calc (S) [Mass/Vol] Ordered By: Mohit Carlos on 12-27-2021 Globulin (S) [Mass/Vol] 3.8 g/dL [facility] Hematocrit Auto (Bld) [Volum e fraction]Ordered By: Mohit Carlos on 12-27-2021 Hematocrit (Bld) [Volume fraction] 46.2 % 38.8-50.0 [facility] Ketones Auto test strip (U) [Mass/Vol]Ordered By: Mohit Carlos on 12-27-2021 Ketones (U) [Mass/Vol] Negative Negative [facility] and C hemistry - challengeOrdered By: Mohit Carlos on 12-27-2021 Lipase [Catalytic activity/Vol] 530.0 U/L 22- [facility] Laboratory - CoagulationOrde red By: Mohit Carlos on 12-27-2021 PT Coag (PPP) [Time] 10.7 s 9.0-12.9 [facility] Laboratory - Hematology and Cell countsOrdered By: Mohit Carlos on 12-27-2021 Nucleated RBC/100 WBC (Bld) [Ratio] 0.1 % 0-0.5 [facility] - UrinalysisOrder ed By: Mohit Carlos on 12-27-2021 Hyaline casts LM Ql (Urine sed) None seen [LPF] 0-8 [facility] Lymphocytes Auto (Bld) [#/Vo l]Ordered By: Mohit Carlos on 12-27-2021 Lymphocytes (Bld) [#/Vol] 3.0 10*3/uL 1.00-4.8 [facility] Lymphocytes/100 WBC Auto (Bl d)Ordered By: Mohit Carlos on 12-27-2021 Lymphocytes/100 WBC (Bld) 27.6 % . [facility] MCH Auto (RBC) [Entitic mass ]Ordered By: Mohit Carlos on 12-27-2021 MCH (RBC) [Entitic mass] 30.2 pg 27.5-35.2 [facility] MCHC Auto (RBC) [Mass/Vol]Or dered By: Mohit Carlos on 12-27-2021 MCHC (RBC) [Mass/Vol] 34.0 g/dL 32.5-35.6 [facility] MCV Auto (RBC) [Entitic vol] Ordered By: Mohit Carlos on 12-27-2021 MCV (RBC) [Entitic vol] 88.7 fL 83.5-101 [facility] Monocytes Auto (Bld) [#/Vol] Ordered By: Mohit Carlos on 12-27-2021 Monocytes (Bld) [#/Vol] 0.6 10*3/uL 0.0-0.8 [facility] Monocytes/100 WBC Auto (Bld) Ordered By: Mohit Carlos on 12-27-2021 Monocytes/100 WBC (Bld) 6.0 % . [facility] Neutrophils Auto (Bld) [#/Vo l]Ordered By: Mohit Carlos on 12-27-2021 Neutrophils (Bld) [#/Vol] 7.0 10*3/uL 1.8-7.7 [facility] Neutrophils/100 WBC Auto (Bl d)Ordered By: Mohit Carlos on 12-27-2021 Neutrophils/100 WBC (Bld) 64.9 % . [facility] Nitrite Test strip Ql (U)Ord ered By: Mohit Carlos on 12-27-2021 Nitrite Ql (U) Negative Negative [facility] No Panel InformationOrdered By: Mohit Carlos on 12-27-2021 Estimated GFR () 59 mL/Min [facility] Comment on above: GFR estimated refere nce range: According to KDOQI guidelines, <60 ml/min/1.73m2 is sufficient to diagnose a patient with chronic kidney disease. Pharmacy Creatinine Clearance (Chem 65.92 [facility] Platelet mean volume Auto (B ld) [Entitic vol]Ordered By: Mohit Carlos on 12-27-2021 Platelet mean volume (Bld) [Entitic vol] 8.3 fL 6.6-10.1 [facility] Platelet poor plasma interna tional normalized ratio (INR) by coagulation assay (relatOrdered By: Mohit Carlos on 12-27-2021 INR Coag (PPP) [Relative time] 1.0 {INR} [facility] Comment on above: INR Therapeutic Rang e A) Pre- and Peroperative OAT started two weeks before surgery. NOT HIP SURGERY: 1.5 - 2.5 HIP SURGERY: 2 - 3 B) Primary and secondary prevention of venous THROMBOSIS: 2 - 3 C) Active venous thrombosis, pulmonary embolism and prevention of recurrent venous thrombosis: 2 - 3 D) Prevention of arterial thromboembolism including patients with mechanical heart valves: 3 - 4.5 INR Therapeutic Rang e A) Pre- and Peroperative OAT started two weeks before surgery. NOT HIP SURGERY: 1.5 - 2.5 HIP SURGERY: 2 - 3B) Primary and secondary prevention of venous THROMBOSIS: 2 - 3C) Active venous thrombosis, pulmonary embolismand prevention of recurrent venous thrombosis: 2 - 3D) Prevention of arterial thromboembolismincluding patients with mechanical heart valves: 3 - 4.5 Platelets Auto (Bld) [#/Vol] Ordered By: Mohit Carlos on 12-27-2021 Platelets (Bld) [#/Vol] 186 10*3/uL 150-450 [facility] Protein Auto test strip (U) [Mass/Vol]Ordered By: Mohit Carlos on 12-27-2021 Protein (U) [Mass/Vol] Trace mg/dL Negative F [facility] Protein [Mass/volume] in Ser um or PlasmaOrdered By: Mohit Carlos on 12-27-2021 Protein [Mass/Vol] 8.0 g/dL 6.1-7.9 [facility] RBC Auto (Bld) [#/Vol]Ordere d By: Mohit Carlos on 12-27-2021 RBC (Bld) [#/Vol] 5.21 10*6/uL 3.90-5.60 [facility] Serum or plasma alanine quinn otransferase measurement without P-5'-P (enzymatic activiOrdered By: Mohit Carlos on 12-27-2021 ALT No additional P-5'-P [Catalytic activity/Vol] 36 U/L 10-60 [facility] Serum or plasma albumin/glob ulin mass ratioOrdered By: Mohit Carlos on 12-27-2021 Albumin/Globulin [Mass ratio] 1.1 {ratio} [facility] Serum or plasma alkaline malik sphatase measurement (enzymatic activity/volume)Ordered By: Mohit Carlos on 12-27-2021 ALP [Catalytic activity/Vol] 85 U/L 32-92 [facility] Serum or plasma aspartate am inotransferase measurement (enzymatic activity/volume)Ordered By: Mohit Carlos on 12-27-2021 AST [Catalytic activity/Vol] 26 U/L 10-42 [facility] Serum or plasma calcium fermín urement (mass/volume)Ordered By: Mohit Carlos on 12-27-2021 Calcium [Mass/Vol] 9.8 mg/dL 8.2-10.2 [facility] Serum or plasma chloride jeffy surement (moles/volume)Ordered By: Mohit Carlos on 12-27-2021 Chloride [Moles/Vol] 97 mmol/L 95-114 [facility] Serum or plasma glucose fermín urement (mass/volume)Ordered By: Mohit Carlos on 12-27-2021 Glucose [Mass/Vol] 172 mg/dL 70-100 [facility] Comment on above: ADA recommended refe rence range Random Glucose Reference Range is dependent on time and content of last meal. Glucose of more than 200 mg/dL in a nonstressed, ambulatory subject supports the diagnosis of Diabetes Mellitus. ADA recommended refe rence rangeRandom Glucose Reference Range is dependent on time and content of last meal. Glucose of more than 200 mg/dL in a nonstressed, ambulatory subject supports the diagnosis of Diabetes Mellitus. Serum or plasma non-glucuron idated bilirubin measurement (mass/volume)Ordered By: Mohit Carlos on 12-27-2021 Bilirubin.indirect [Mass/Vol] TNP [facility] Comment on above: Test not performed Serum or plasma potassium me asurement (moles/volume)Ordered By: Mohit Carlos on 12-27-2021 Potassium [Moles/Vol] 3.7 mmol/L 3.5-5.1 [facility] Serum or plasma sodium measu rement (moles/volume)Ordered By: Mohit Carlos on 12-27-2021 Sodium [Moles/Vol] 134 mmol/L 136-146 [facility] Serum or plasma total biliru bin measurement (mass/volume)Ordered By: Mohit Carlos on 12-27-2021 Bilirubin [Mass/Vol] 0.6 mg/dL 0.3-1.2 [facility] Serum or plasma total carbon dioxide measurement (moles/volume)Ordered By: Mohit Carlos on 12-27-2021 CO2 [Moles/Vol] 26.0 mmol/L 22.0-30.0 [facility] Serum or plasma urea nitroge n measurement (mass/volume)Ordered By: Mohit Carlos on 12-27-2021 Urea nitrogen [Mass/Vol] 22 mg/dL 9-23 [facility] Specific gravity Auto test s trip (U) [Rel density]Ordered By: Mohit Carlos on 12-27-2021 Specific gravity (U) [Rel density] 1.024 1.001-1.030 [facility] Squamous epithelial cells de tection in urine sediment by light microscopyOrdered By: Mohit Carlos on 12-27-2021 Epithelial cells.squamous LM Ql (Urine sed) None seen [HPF] 0-2 [facility] Urine bacteria detection by automated methodOrdered By: Mohit Carlos on 12-27-2021 Bacteria Auto Ql (U) None seen None Seen [facility] Urine clarity by refractomet ry automatedOrdered By: Mohit Carlos on 12-27-2021 Clarity Refractometry automated (U) Clear Clear [facility] Urine glucose measurement by automated test strip (mass/volume)Ordered By: Mohit Carlos on 12-27-2021 Glucose Auto test strip (U) [Mass/Vol] >=1000 mg/dL Normal [facility] Urine hemoglobin detection b y automated test stripOrdered By: Mohit Carlos on 12-27-2021 Hemoglobin Auto test strip Ql (U) Negative Negative [facility] Urine leukocyte esterase det ection by automated test stripOrdered By: Mohit Carlos on 12-27-2021 Leukocyte esterase Auto test strip Ql (U) Negative Negative [facility] Urobilinogen Auto test strip (U) [Mass/Vol]Ordered By: Mohit Carlos on 12-27-2021 Urobilinogen (U) [Mass/Vol] Normal mg/dL Normal [facility] pH Auto test strip (U)Ordere d By: Mohit Carlos on 12-27-2021 pH (U) 7.0 [pH] 5.0-9.0 [facility] Albumin [Mass/volume] in Ser um or PlasmaOrdered By: Godwin Coker on 12-15-2021 Albumin [Mass/Vol] 4.0 g/dL 3.2-5.5 [facility] Automated erythrocytes count in urine sediment (number/area)Ordered By: Godwin Coker on 12-15-2021 RBC Auto (Urine sed) [#/Area] 0-1 [HPF] 0-4 [facility] Automated leukocytes count i n urine sediment (number/area)Ordered By: Godwin Coker on 12-15-2021 WBC Auto (Urine sed) [#/Area] None seen [HPF] 0-4 [facility] Basophils Auto (Bld) [#/Vol] Ordered By: Godwin Coker on 12-15-2021 Basophils (Bld) [#/Vol] 0.1 10*3/uL 0.0-0.2 [facility] Basophils/100 WBC Auto (Bld) Ordered By: Godwin Coker on 12-15-2021 Basophils/100 WBC (Bld) 0.8 % . [facility] Bilirubin Test strip Ql (U)O rdered By: Godwin Coker on 12-15-2021 Bilirubin Ql (U) Negative Negative [facility] Blood hemoglobin measurement (mass/volume)Ordered By: Godwin Coker on 12-15-2021 Hemoglobin (Bld) [Mass/Vol] 15.3 g/dL 13.0-17.0 [facility] Blood leukocytes automated c ount (number/volume)Ordered By: Godwin Coker on 12-15-2021 WBC (Bld) [#/Vol] 8.4 10*3/uL 4.5-11.0 [facility] Color Auto (U)Ordered By: Ap Coker on 12-15-2021 Color (U) Yellow Yellow [facility] Creatinine and Glomerular fi ltration rate.predicted panel (S/P/Bld)Ordered By: Godwin Coker on 12-15-2021 Creatinine [Mass/Vol] 1.30 mg/dL 0.64-1.27 [facility] Eosinophils Auto (Bld) [#/Vo l]Ordered By: Godwin Coker on 12-15-2021 Eosinophils (Bld) [#/Vol] 0.0 10*3/uL 0.0-0.45 [facility] Eosinophils/100 WBC Auto (Bl d)Ordered By: Godwin Coker on 12-15-2021 Eosinophils/100 WBC (Bld) 0.4 % . [facility] Erythrocyte distribution wid th Auto (RBC) [Ratio]Ordered By: Godwin Coker on 12-15-2021 Erythrocyte distribution width (RBC) [Ratio] 13.4 % 12.0-14.8 [facility] Estimated glomerular filtrat ion rate (GFR) non- AmericanOrdered By: Godwin Coker on 12-15-2021 GFR/1.73 sq M.predicted among non-blacks MDRD (S/P/Bld) [Vol rate/Area] 58 mL/Min [facility] Globulin Calc (S) [Mass/Vol] Ordered By: Godwin Coker on 12-15-2021 Globulin (S) [Mass/Vol] 3.4 g/dL [facility] Hematocrit Auto (Bld) [Volum e fraction]Ordered By: Godwin Coker on 12-15-2021 Hematocrit (Bld) [Volume fraction] 45.2 % 38.8-50.0 [facility] Ketones Auto test strip (U) [Mass/Vol]Ordered By: Godwin Coker on 12-15-2021 Ketones (U) [Mass/Vol] Negative Negative [facility] Laboratory - Chemistry and C hemistry - challengeOrdered By: Godwin Coker on 12-15-2021 Lipase [Catalytic activity/Vol] 220.0 U/L 22-51 [facility] Laboratory - Hematology and Cell countsOrdered By: Godwin Coker on 12-15-2021 Nucleated RBC/100 WBC (Bld) [Ratio] 0.1 % 0-0.5 [facility] Laboratory - UrinalysisOrder ed By: Godwin Coker on 12-15-2021 Hyaline casts LM Ql (Urine sed) None seen [LPF] 0-8 [facility] Lymphocytes Auto (Bld) [#/Vo l]Ordered By: Godwin Coker on 12-15-2021 Lymphocytes (Bld) [#/Vol] 2.1 10*3/uL 1.00-4.8 [facility] Lymphocytes/100 WBC Auto (Bl d)Ordered By: Godwin Coker on 12-15-2021 Lymphocytes/100 WBC (Bld) 24.7 % . [facility] MCH Auto (RBC) [Entitic mass ]Ordered By: Godwin Coker on 12-15-2021 MCH (RBC) [Entitic mass] 29.8 pg 27.5-35.2 [facility] MCHC Auto (RBC) [Mass/Vol]Or dered By: Godwin Coker on 12-15-2021 MCHC (RBC) [Mass/Vol] 33.8 g/dL 32.5-35.6 [facility] MCV Auto (RBC) [Entitic vol] Ordered By: Godwin Coker on 12-15-2021 MCV (RBC) [Entitic vol] 88.3 fL 83.5-101 [facility] Monocytes Auto (Bld) [#/Vol] Ordered By: Godwin Coker on 12-15-2021 Monocytes (Bld) [#/Vol] 0.5 10*3/uL 0.0-0.8 [facility] Monocytes/100 WBC Auto (Bld) Ordered By: Godwin Coker on 12-15-2021 Monocytes/100 WBC (Bld) 6.4 % . [facility] Neutrophils Auto (Bld) [#/Vo l]Ordered By: Godwin Coker on 12-15-2021 Neutrophils (Bld) [#/Vol] 5.7 10*3/uL 1.8-7.7 [facility] Neutrophils/100 WBC Auto (Bl d)Ordered By: Godwin Coker on 12-15-2021 Neutrophils/100 WBC (Bld) 67.7 % . [facility] Nitrite Test strip Ql (U)Ord ered By: Godwin Coker on 12-15-2021 Nitrite Ql (U) Negative Negative [facility] No Panel InformationOrdered By: Godwin Coker on 12-15-2021 Estimated GFR () > 60 mL/Min [facility] Comment on above: GFR estimated refere nce range: According to KDOQI guidelines, <60 ml/min/1.73m2 is sufficient to diagnose a patient with chronic kidney disease. Pharmacy Creatinine Clearance (Chem 69.99 [facility] Platelet mean volume Auto (B ld) [Entitic vol]Ordered By: Godwin Coker on 12-15-2021 Platelet mean volume (Bld) [Entitic vol] 8.3 fL 6.6-10.1 [facility] Platelets Auto (Bld) [#/Vol] Ordered By: Godwin Coker on 12-15-2021 Platelets (Bld) [#/Vol] 184 10*3/uL 150-450 [facility] Protein Auto test strip (U) [Mass/Vol]Ordered By: Godwin Coker on 12-15-2021 Protein (U) [Mass/Vol] 30 mg/dL [facility] Protein [Mass/volume] in Ser um or PlasmaOrdered By: Godwin Coker on 12-15-2021 Protein [Mass/Vol] 7.4 g/dL 6.1-7.9 [facility] RBC Auto (Bld) [#/Vol]Ordere d By: Godwin Coker on 12-15-2021 RBC (Bld) [#/Vol] 5.12 10*6/uL 3.90-5.60 [facility] Serum or plasma alanine quinn otransferase measurement without P-5'-P (enzymatic activiOrdered By: Godwin Coker on 12-15-2021 ALT No additional P-5'-P [Catalytic activity/Vol] 35 U/L 10-60 [facility] Serum or plasma albumin/glob ulin mass ratioOrdered By: Godwin Coker on 12-15-2021 Albumin/Globulin [Mass ratio] 1.2 {ratio} [facility] Serum or plasma alkaline malik sphatase measurement (enzymatic activity/volume)Ordered By: Godwin Coker on 12-15-2021 ALP [Catalytic activity/Vol] 82 U/L 32-92 [facility] Serum or plasma aspartate am inotransferase measurement (enzymatic activity/volume)Ordered By: Godwin Coker on 12-15-2021 AST [Catalytic activity/Vol] 28 U/L 10-42 [facility] Serum or plasma calcium fermín urement (mass/volume)Ordered By: Godwin Coker on 12-15-2021 Calcium [Mass/Vol] 9.8 mg/dL 8.2-10.2 [facility] Serum or plasma chloride jeffy surement (moles/volume)Ordered By: Godwin Coker on 12-15-2021 Chloride [Moles/Vol] 105 mmol/L 95-114 [facility] Serum or plasma glucose fermín urement (mass/volume)Ordered By: Godwin Coker on 12-15-2021 Glucose [Mass/Vol] 204 mg/dL 70-100 [facility] Comment on above: ADA recommended refe rence range Random Glucose Reference Range is dependent on time and content of last meal. Glucose of more than 200 mg/dL in a nonstressed, ambulatory subject supports the diagnosis of Diabetes Mellitus. ADA recommended refe rence rangeRandom Glucose Reference Range is dependent on time and content of last meal. Glucose of more than 200 mg/dL in a nonstressed, ambulatory subject supports the diagnosis of Diabetes Mellitus. Serum or plasma potassium me asurement (moles/volume)Ordered By: Godwin Coker on 12-15-2021 Potassium [Moles/Vol] 4.0 mmol/L 3.5-5.1 [facility] Serum or plasma sodium measu rement (moles/volume)Ordered By: Godwin Coker on 12-15-2021 Sodium [Moles/Vol] 137 mmol/L 136-146 [facility] Serum or plasma total biliru bin measurement (mass/volume)Ordered By: Godwin Coker on 12-15-2021 Bilirubin [Mass/Vol] 0.5 mg/dL 0.3-1.2 [facility] Serum or plasma total carbon dioxide measurement (moles/volume)Ordered By: Godwin Coker on 12-15-2021 CO2 [Moles/Vol] 23.7 mmol/L 22.0-30.0 [facility] Serum or plasma urea nitroge n measurement (mass/volume)Ordered By: Godwin Coker on 12-15-2021 Urea nitrogen [Mass/Vol] 22 mg/dL 9-23 [facility] Specific gravity Auto test s trip (U) [Rel density]Ordered By: Godwin Coker on 12-15-2021 Specific gravity (U) [Rel density] 1.031 1.001-1.030 [facility] Squamous epithelial cells de tection in urine sediment by light microscopyOrdered By: Godwin Coker on 12-15-2021 Epithelial cells.squamous LM Ql (Urine sed) None seen [HPF] 0-2 [facility] Urine bacteria detection by automated methodOrdered By: Godwin Coker on 12-15-2021 Bacteria Auto Ql (U) None seen None Seen [facility] Urine clarity by refractomet ry automatedOrdered By: Godwin Coker on 12-15-2021 Clarity Refractometry automated (U) Clear Clear [facility] Urine glucose measurement by automated test strip (mass/volume)Ordered By: Godwin Coker on 12-15-2021 Glucose Auto test strip (U) [Mass/Vol] >=1000 mg/dL Normal [facility] Urine hemoglobin detection b y automated test stripOrdered By: Godwin Coker on 12-15-2021 Hemoglobin Auto test strip Ql (U) Negative Negative [facility] Urine lactic acid measuremen tOrdered By: Godwin Coker on 12-15-2021 Lactate (U) [Moles/Vol] 1.1 mmol/L 0.5-2.2 [facility] Urine leukocyte esterase det ection by automated test stripOrdered By: Godwin Coker on 12-15-2021 Leukocyte esterase Auto test strip Ql (U) Negative Negative [facility] Urobilinogen Auto test strip (U) [Mass/Vol]Ordered By: Godwin Coker on 12-15-2021 Urobilinogen (U) [Mass/Vol] Normal mg/dL Normal [facility] pH Auto test strip (U)Ordere d By: Godwin Coker on 12-15-2021 pH (U) 7.0 [pH] 5.0-9.0 [facility] COVID-19 SOFIAOrdered By: Blayne Anne on 11-28-2021 SARS-CoV+SARS-CoV-2 (COVID-19) Ag IA.rapid Ql (Resp) Negative Negative [facility] Comment on above: This is a duplicate Deena SARS Antigen (HEYDI) result to be used for statistical tracking purpose only. No Panel InformationOrdered By: aTe Anne on 11-28-2021 SARS Antigen (LFIA) [facility] Laboratory - Hematology and Cell countsOrdered By: Fredy Brito on 06-05-2021 Nucleated RBC/100 WBC (Bld) [Ratio] 0.0 % 0-0.5 [facility] Vital Signs Date Time Vital Sign Value Performing Clinician Faci lity 07-01-2022 22:35-0500 Body height 180.34 cm Services [facility] [employer] Work Phone: [facility] 07-01-2022 22:35-0500 Body temperature 99 [degF] Services [facility] Work Phone: [facility] 07-01-2022 22:35-0500 Body weight 90.71 kg Services [facility] Work Phone: [facility] 07-01-2022 22:35-0500 Diastolic blood pressure 93 mm[Hg] [facility] Work Phone: [facility] 07-01-2022 22:35-0500 Heart rate 101 /min [facility] Work Phone: [facility] 07-01-2022 22:35-0500 Respiratory rate 22 /min [facility] Work Phone: [facility] 07-01-2022 22:35-0500 SaO2% (BldA) [Mass fraction] 97 % [facility] Work Phone: [facility] 07-01-2022 22:35-0500 Systolic blood pressure 171 mm[Hg] [facility] Work Phone: [facility] 06-08-2022 11:18-0500 Body height 180.34 cm Services [facility] Work Phone: [facility] 06-08-2022 11:18-0500 Body temperature 98.1 [degF] Services [facility] Work Phone: [facility] 06-08-2022 11:18-0500 Body weight 94.7 kg Services [facility] Work Phone: [facility] 06-08-2022 11:18-0500 Diastolic blood pressure 83 mm[Hg] [facility] Work Phone: [facility] 06-08-2022 11:18-0500 Heart rate 99 /min [facility] Work Phone: [facility] 06-08-2022 11:18-0500 Respiratory rate 18 /min [facility] Work Phone: [facility] 06-08-2022 11:18-0500 SaO2% (BldA) [Mass fraction] 98 % [facility] Work Phone: [facility] 06-08-2022 11:18-0500 Systolic blood pressure 124 mm[Hg] [facility] Work Phone: [facility] 05-14-2022 21:36-0500 Body height 180.34 cm Services [facility] Work Phone: [facility] 05-14-2022 21:36-0500 Body temperature 99 [degF] Services [facility] Work Phone: [facility] 05-14-2022 21:36-0500 Body weight 90.8 kg Services [facility] Work Phone: [facility] 05-14-2022 21:36-0500 Diastolic blood pressure 93 mm[Hg] Services [facility] Work Phone: [facility] 05-14-2022 21:36-0500 Heart rate 93 /min [facility] Work Phone: [facility] 05-14-2022 21:36-0500 Respiratory rate 16 /min [facility] Work Phone: [facility] 05-14-2022 21:36-0500 SaO2% (BldA) [Mass fraction] 96 % [facility] Work Phone: [facility] 05-14-2022 21:36-0500 Systolic blood pressure 141 mm[Hg] Services [facility] Work Phone: [facility] 03-09-2022 12:34-0400 Body height 180.34 cm Services [facility] Work Phone: [facility] 03-09-2022 12:34-0400 Body temperature 97.4 [degF] Services [facility] Work Phone: [facility] 03-09-2022 12:34-0400 Body weight 90.45 kg Services [facility] Work Phone: [facility] 03-09-2022 12:34-0400 Diastolic blood pressure 88 mm[Hg] Services [facility] Work Phone: [facility] 03-09-2022 12:34-0400 Heart rate 86 /min [facility] Work Phone: [facility] 03-09-2022 12:34-0400 Respiratory rate 18 /min [facility] Work Phone: [facility] 03-09-2022 12:34-0400 SaO2% (BldA) [Mass fraction] 100 % [facility] Work Phone: [facility] 03-09-2022 12:34-0400 Systolic blood pressure 137 mm[Hg] [facility] Work Phone: [facility] 03-07-2022 13:37-0400 Body height 180.34 cm Services [facility] Work Phone: [facility] 03-07-2022 13:37-0400 Body temperature 98.3 [degF] Services [facility] Work Phone: [facility] 03-07-2022 13:37-0400 Body weight 90.71 kg Services [facility] Work Phone: [facility] 03-07-2022 13:37-0400 Diastolic blood pressure 96 mm[Hg] Services [facility] Work Phone: [facility] 03-07-2022 13:37-0400 Heart rate 89 /min [facility] Work Phone: [facility] 03-07-2022 13:37-0400 Respiratory rate 18 /min [facility] Work Phone: [facility] 03-07-2022 13:37-0400 SaO2% (BldA) [Mass fraction] 100 % Services [facility] Work Phone: [facility] 03-07-2022 13:37-0400 Systolic blood pressure 160 mm[Hg] Services [facility] Work Phone: [facility] 02-28-2022 10:22-0400 Diastolic blood pressure 91 mm[Hg] Services [facility] Work Phone: [facility] 02-28-2022 10:22-0400 Heart rate 85 /min Services [facility] Work Phone: [facility] 02-28-2022 10:22-0400 Respiratory rate 16 /min [facility] Work Phone: [facility] 02-28-2022 10:22-0400 SaO2% (BldA) [Mass fraction] 99 % Services [facility] Work Phone: [facility] 02-28-2022 10:22-0400 Systolic blood pressure 138 mm[Hg] Services [facility] Work Phone: [facility] 02-28-2022 08:15-0400 Body height 180.34 cm Services [facility] Work Phone: [facility] 02-28-2022 08:15-0400 Body temperature 97.6 [degF] Services [facility] Work Phone: [facility] 02-28-2022 08:15-0400 Body weight 90.71 kg Services [facility] Work Phone: [facility] 02-27-2022 13:21-0400 Body height 180.34 cm Services [facility] Work Phone: [facility] 02-27-2022 13:21-0400 Body temperature 97.6 [degF] [facility] Work Phone: [facility] 02-27-2022 13:21-0400 Body weight 89.6 kg Services [facility] Work Phone: [facility] 02-27-2022 13:21-0400 Diastolic blood pressure 88 mm[Hg] Services [facility] Work Phone: [facility] 02-27-2022 13:21-0400 Heart rate 100 /min [facility] Work Phone: [facility] 02-27-2022 13:21-0400 Respiratory rate 20 /min [facility] Work Phone: [facility] 02-27-2022 13:21-0400 SaO2% (BldA) [Mass fraction] 100 % Services [facility] Work Phone: [facility] 02-27-2022 13:21-0400 Systolic blood pressure 130 mm[Hg] Services [facility] Work Phone: [facility] 12-27-2021 02:28-0400 Diastolic blood pressure 99 mm[Hg] Services [facility] Work Phone: [facility] 12-27-2021 02:28-0400 Heart rate 97 /min [facility] Work Phone: [facility] 12-27-2021 02:28-0400 Respiratory rate 18 /min [facility] Work Phone: [facility] 12-27-2021 02:28-0400 SaO2% (BldA) [Mass fraction] 100 % Services [facility] Work Phone: [facility] 12-27-2021 02:28-0400 Systolic blood pressure 150 mm[Hg] Services [facility] Work Phone: [facility] 12-26-2021 23:35-0400 Body height 180.34 cm Services [facility] Work Phone: [facility] 12-26-2021 23:35-0400 Body temperature 98.7 [degF] Services [facility] Work Phone: [facility] 12-26-2021 23:35-0400 Body weight 91.62 kg Services [facility] Work Phone: [facility] 12-15-2021 14:39-0400 Body temperature 97.6 [degF] Services [facility] Work Phone: [facility] 12-15-2021 14:39-0400 Diastolic blood pressure 82 mm[Hg] Services [facility] Work Phone: [facility] 12-15-2021 14:39-0400 Heart rate 84 /min [facility] Work Phone: [facility] 12-15-2021 14:39-0400 Respiratory rate 16 /min Services [facility] Work Phone: [facility] 12-15-2021 14:39-0400 SaO2% (BldA) [Mass fraction] 100 % Services [facility] Work Phone: [facility] 12-15-2021 14:39-0400 Systolic blood pressure 154 mm[Hg] Services [facility] Work Phone: [facility] 12-15-2021 13:27-0400 Body height 180.34 cm Services [facility] Work Phone: [facility] 12-15-2021 13:27-0400 Body weight 87.9 kg Services [facility] Work Phone: [facility] 11-28-2021 18:01-0400 Heart rate 90 /min [facility] Work Phone: [facility] 11-28-2021 17:45-0400 Body height 180.34 cm Services [facility] Work Phone: [facility] 11-28-2021 17:45-0400 Body mass index (BMI) [Ratio] 28.3 kg/m2 Services [facility] Work Phone: [facility] 11-28-2021 17:45-0400 Body temperature 98.2 [degF] Services [facility] Work Phone: [facility] 11-28-2021 17:45-0400 Body weight 92.15 kg Services [facility] Work Phone: [facility] 11-28-2021 17:45-0400 Diastolic blood pressure 83 mm[Hg] Services [facility] Work Phone: [facility] 11-28-2021 17:45-0400 Respiratory rate 18 /min Services [facility] Work Phone: [facility] 11-28-2021 17:45-0400 SaO2% (BldA) [Mass fraction] 97 % Services [facility] Work Phone: [facility] 11-28-2021 17:45-0400 Systolic blood pressure 128 mm[Hg] Services [facility] Work Phone: [facility] Encounters Encounter Date Encounter Type Care Provider Facility Start: 07-18-2023 End: 07-18-2023 Emergency department patient visit Services [facility] Facility:[facility] Start: 07-16-2023 End: 07-16-2023 ambulatory Lynn E Spasic Facility:[facility] Start: 04-25-2023 End: 04-25-2023 ambulatory Lynn E Spasic Facility:[facility] Start: 04-25-2023 End: 04-25-2023 ambulatory Services [facility] Work Phone: [facility] Work Phone: Start: 04-25-2023 End: 04-25-2023 Patient encounter procedure Services [facility] Work Phone: [facility] [place] Work Phone: Start: 01-24-2023 ambulatory Mobowenf Cherryi Faci lity:[id number] Start: 01-24-2023 End: 01-24-2023 ambulatory Mitch Fischer Rodrigo Facility:[facility] Start: 01-24-2023 End: 01-24-2023 ambulatory Services [facility] Work Phone: [facility] Work Phone: Start: 01-24-2023 End: 01-24-2023 Patient encounter procedure Services [facility] Work Phone: [facility] Work Phone: Start: 12-31-2022 End: 12-31-2022 ambulatory Lynn E Spasic Facility:[id number] Start: 12-31-2022 End: 12-31-2022 ambulatory Services [facility] Work Phone: [facility] Work Phone: Start: 12-31-2022 End: 12-31-2022 Patient encounter procedure Services [facility] Work Phone: [facility] Work Phone: Start: 07-01-2022 End: 07-02-2022 Emergency department patient visit Services [facility] Work Phone: [facility] Work Phone: Start: 06-26-2022 End: 06-26-2022 ambulatory Services [facility] Work Phone: [facility] Work Phone: Start: 06-26-2022 End: 06-26-2022 Departed Referred Services [facility] Work Phone: [facility] Start: 06-08-2022 End: 06-08-2022 ambulatory [facility] Work Phone: [facility] Work Phone: Start: 06-08-2022 End: 06-08-2022 Registered Recurring Services [facility] Work Phone: [facility] Work Phone: Start: 05-14-2022 End: 05-14-2022 Emergency department patient visit Services [facility] Work Phone: [facility] Work Phone: Start: 03-09-2022 End: 03-09-2022 Emergency department patient visit Services [facility] Work Phone: [facility] Start: 03-07-2022 End: 03-07-2022 Emergency department patient visit [facility] Work Phone: [facility] Start: 02-28-2022 End: 02-28-2022 Admission to same day surgery center [facility] Work Phone: [facility] Start: 02-28-2022 End: 02-28-2022 ambulatory [facility] Work Phone: [facility] Work Phone: Start: 02-27-2022 End: 02-27-2022 Emergency department patient visit [facility] Work Phone: [facility] Start: 02-26-2022 End: 02-26-2022 ambulatory Services [employer] Work Phone: [facility] Work Phone: Start: 02-26-2022 End: 02-26-2022 Patient encounter procedure Services [employer] Work Phone: [facility]-Pre-Surgical Testing Start: 02-14-2022 End: 02-14-2022 ambulatory Services [facility] Work Phone: [facility] Work Phone: Start: 02-14-2022 End: 02-14-2022 Patient encounter procedure Services [employer] Phone: [facility]-Electrodiagnostic s Start: 12-26-2021 End: 12-27-2021 Emergency department patient visit Services [facility] [employer] Phone: [facility]Emergency Room Start: 12-15-2021 End: 12-15-2021 Emergency department patient visit Services [facility] [employer] Phone: [facility]Emergency Room Start: 12-14-2021 End: 12-14-2021 Patient encounter procedure Services [employer] Phone: [facility]-CT Scan [place] Start: 11-28-2021 End: 11-28-2021 Emergency department patient visit Services [facility] [employer] Phone: [facility]Emergency Room Procedures Date Procedure Procedure Detail Performing Clinician Start: 04-25-2023 Doppler ultrasonography of bilateral carotid arteries Services [facility] [employer] Phone: Start: 06-06-2022 CT of abdomen and pelvis without contrast Services [facility] [employer] Phone: Start: 06-06-2022 CT of chest without contrast Services [facility] [employer] Phone: Start: 05-14-2022 Plain chest X-ray Services [facility] [employer] Phone: Start: 05-14-2022 SARS-CoV-2, Influenza & RSV (PCR) Servbryan es [employer] Work Phone: Start: 02-28-2022 Esophagogastroduodenoscopy Services [employer] Work Phone: Start: 12-27-2021 Computed tomography of abdomen and pelvis with contrast [facility] [employer] Phone: Start: 12-15-2021 CT of abdomen and pelvis without contrast [facility] [employer] Phone: Start: 12-14-2021 CT of abdomen and pelvis without contrast [facility] [employer] Phone: Start: 11-28-2021 Plain chest X-ray [facility] [employer] Phone: Start: 06-05-2021 CT chest wo con [facility] [employer] Phone: Start: 06-05-2021 CT of abdomen and pelvis without contrast [facility] [employer] Phone: SARS Antigen (LFIA) [facility] [employer] Phone: Screening for occult blood in feces [facility] [employer] Phone: Plan of Treatment Date Care Activity Detail Author Start: 05-14-2022 Plain chest X-ray XR chest 1V portab le [facility] Start: 05-14-2022 XR Chest Single view [facility] Start: 02-28-2022 [facility] Start: 12-27-2021 Computed tomography of abdomen and pelvis with contrast CT abdomen pelvis w con [facility] Start: 12-26-2021 End: 12-27-2021 Emergency department patient visit Departed Emergency [facility] Patient Education [facility] Work Phone: Patient referral [facility] Work Phone: Immunizations Immunization Date Immunization Notes Care Provider Fa jasmin NEGATED: Highlighted row has not occurred!05-09-2020 influenza, injectable, quadrivalent, preservative free Services [employer] Phone: [facility] Payers Date Payer Category Payer Medicaid [id number] 2022 Self-pay [id number] 1970 Unknown [id number] [id number] 1970 Unknown [id number] 2.16. [id number] Medicaid [facility] [id number] Unknown MMO [id number] Unknown [place] BC/BS [id number] Unknown [id number] 2.16.8 [id number] Unknown [id number] 2.16.8 [id number] Unknown [id number] 2.16.8 [id number] Unknown [id number] 2.16.8 [id number] Unknown [id number] 2.16.8 [id number] Social History Date Type Detail Facility Start: 12-27-2021 End: 07-02-2022 Tobacco smoking status NHIS Smoker (finding) [facility] Start: 1970 Sex Assigned At Male F [facility] Goals Date Patient Goal Desired Activity /State Clinical Notes 05-27-2020 to 02-28-2022 Note Date & Type Note Facility 02-28-2022 Procedure note [facility] 06-09-2021 Progress note Note Date/Time June 09, 2021 3:10pm [facility] at [address] [address] Hem/Onc Follow Up Note - OP Signed Patient: Silverio Barahona MR#: [id number] : 1970 Acct:[id number] Age/Sex: 50 / M Type: REG RCR Copies to: [facility] Fredy Brito II, DO~ Subjective Date/Time of Service: Date of Service: 06/09/2021 Time of Service: 15:03 Chief Complaint: Patient is here for a one year follow up with labs and scans for review. 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 He was treated with surgery and no adjuvant therapy, at the time adjuvant therapy was not indicated. We monitored him with systemic imaging for 2 years afterwards which showed no evidence of recurrence. He also had mitral valve endocarditis in 2019. Apparently he had a prostate infection which turnedinto a prostate abscess in late 2018 or early 2019. He is also type II diabetic, iron deficiency anemia, mood disorder. He has had about a week of advancing generalized weakness, nausea, vomiting, diarrhea, lightheadedness, anorexia and apathy. He initially came to the emergency room, he was treated supportively and blood cultures were drawn. A day later he was told to go back to the emergency room for positive MSSA in the blood cultures and he is admitted to the hospital. During this hospitalization he feels marginally better but overall still feels poorly. He had platelet count of 196,000 on April 21, on May 05 it was 79,000 and since May 07 it has been in the 30,000 range. He had a CAT scanof the abdomen and pelvis which did not show any obvious infection, only a little free fluid. He denies any problems with thrombocytopenia in the past. 05/27/20 He feels much better now out of the hospital. He states he is still a little lightheaded and shaky. He following with Lynn Botello RESEARCH DEVELOPMENT MANAGER currently. He is uninsured so cannot see Dr. Lina Mckeon any longer. He lost job and lookingfor new one. Platelets recovered completely prior to discharge. Has upcoming MRIbrain scheduled noncontrast. 06/09/21 has been under a lot of stress with recent passing of his father last week he has been having n/v from previous bug he had and severe constipation. that has resolved on stool softener, but nausea continues occasionally now has diarrhea after taking stool softeners still has bouts of lightheadedness and shakiness, unchanged from last year. still following with Lynn Botello RESEARCH DEVELOPMENT MANAGER for this is drinking about 4 energy drinks per day, advised him to cut back on these and replace them with water or gatorade or similar otherwise doing ok PMFSH - Medical History Medical History: Medical History (Last Reviewed 05/09/21 @ 19:25 by Gunner Ibarra RN) Cholecystectomy planned Diabetes Iron (Fe) deficiency anemia Kidney cancer, primary, with metastasis from kidney to other site Migraine Restless leg syndrome TIA (transient ischemic attack) - Surgical History Surgical History: Surgical History (Last Reviewed 05/09/21 @ 19:25 by Gunner Ibarra RN) H/O eye surgery History of nephrectomy, right Hx of appendectomy - Family History Family History: Family History (Last Reviewed 05/08/20 @ 15:40 by Pantera Aguilera MD) Family/Other DM2 (diabetes mellitus, type 2) - Social History Smoking Status: Current every day smoker Tobacco Type: cigarettes Substance Use Type: Alcohol Substance Abuse Comment: occ Home Medications & Allergies Allergies No Known Allergies Allergy (Verified 05/09/21 19:25) Home Medications gabapentin 600 mg tablet 600 mg PO QHS 11/10/20 [History Confirmed 06/09/21] hydrochlorothiazide 25 mg tablet 25 mg PO QAM 11/10/20 [History Confirmed 06/09/21] insulin aspart U-100 100 unit/mL subcutaneous solution See Rx Instructions .ROUTE .COMPLEX 11/10/20 [History Confirmed 06/09/21] insulin glargine 100 unit/mL (3 mL) subcutaneous pen (Lantus Solostar U-100 Insulin) 70 unit SUBCUT QHS 11/10/20 [History Confirmed 06/09/21] naproxen 500 mg tablet 500 mg PO Q12H PRN 11/10/20 [History Confirmed 06/09/21] atorvastatin 40 mg tablet 40 mg PO DAILY 05/09/21 [History Confirmed 06/09/21] dulaglutide 1.5 mg/0.5 mL subcutaneous pen injector (Trulicity) 1.5 mg SUBCUT QWEEK 05/09/21 [History Confirmed 06/09/21] tizanidine 4 mg tablet 4 mg PO Q6HR 05/09/21 [History Confirmed 06/09/21] venlafaxine 150 mg capsule,extended release 24 hr 150 mg PO DAILY 05/09/21 [History Confirmed 06/09/21] ondansetron 4 mg disintegrating tablet 4 mg PO Q8H PRN #10 tab 06/09/21 [Rx] Objective - Height/Weight Height/Weight: Height 5 ft 11 in Weight 93.939 kg - Vital Signs Vital Signs: 06/09/21 14:54 Temperature 98 F Pulse Rate [Left Brachial] 100 H Respiratory Rate 20 Blood Pressure [Left Arm] 145/96 H 02 Sat by Pulse Oximetry 96 Physical Exam Narrative: ECOG PS: 0 General : patient is alert and oriented to person place and time, no acute distress. Neck: no JVD or thyromegaly. Lymph: no cervical, supraclavicular, axillary adenopathy. Heart: regular rate and rhythm no murmurs rubs or gallops. Abdomen: soft nontender nondistended, no hepatosplenomegaly. Lungs: clear to auscultation bilaterally, no wheezes rales or rhonchi. Extremities: no clubbing cyanosis or edema. Results - Labs Labs: Diagram of Most Recent CBC and CMP 06/05/21 12:35 06/05/21 12:35 Labs - Last 7 Days 06/05/21 12:35: Carcinoembryonic Ag 4.6 H 06/05/21 12:35: PHA Creatinine Clear 69.72, Sodium 134 L, Potassium 4.3, Chloride 100, Carbon Dioxide 25.4, BUN 20, Creatinine 1.32 H, Est GFR ( Amer) > 60, Est GFR (Non-Af Amer) 57, Glucose 284 H, Calcium 8.9, Total Bilirubin 0.7, AST 22, ALT 31, Alkaline Phosphatase 70, Total Protein 6.8, Albumin 3.8, Globulin 3.0, Albumin/Globulin Ratio 1.3 06/05/21 12:35: Corrected WBC 6.8, Uncorrected WBC Count 6.8, RBC 4.61, Hgb 14.0, Hct 40.2, MCV 87.2, MCH 30.4, MCHC 34.8, RDW 13.8, Plt Count 164, MPV 8.4,Neut % (Auto) 60.4, Lymph % (Auto) 29.8, [place] % (Auto) 7.7, Eos % (Auto) 1.3, Baso % (Auto) 0.8, Neut # (Auto) 4.1, Lymph # (Auto) 2.0, [place] # (Auto) 0.5, Eos# (Auto) 0.1, Baso # (Auto) 0.1, Nucleated RBC % (auto) 0.0 Assessment and Plan (1) Renal cell cancer Adenopathy on CT imaging Ever since his nephrectomy he has had multiple images all of which show small areas of adenopathy in the inguinal, periaortic regions. We are not concerned about recurrence of his cancer at this point. History of stage III renal cell carcinoma He was initially followed for years after his initial diagnosis but he had been lost to follow-up since 2016. He re-established care in 2019 during admission [facility]. He is now followed yearly with scans. Repeat scans 06/05/21 with no evidence of malignancy or metastases. We will repeat scans and labs in 1yr He continues to have very poorly controlled diabetes. This is likely contributing to his acute on chronic renal insufficiency. His baseline renal function is represented by a creatinine of about 1.2, which remains stable. - Time with Patient Coordination of Care & Counseling Time: Greater than 50% of time spent with patient was for coordination of care (as documented) and [id number] counseling of patient and/or family. Dictated By: Mara Page APRN DD/ [id number] Signed By: <Electronically signed by MACIE Page> 06/09/21 1620 [facility] Work Phone: 1(814) 939-198001-15-2021 Progress note Author Fredy Brito [facility] May 27, 2020 9:18am Note Date/Time May 27, 2020 8 :56am [facility] at [address] [address] Hem/Onc Follow Up Note - OP Signed Patient: Silverio Barahona MR#: [id number] : 1970 Acct:[id number] Age/Sex: 49 / M Type: REG RCR Copies to: [employer] [facility]~ Subjective Date/Time of Service: Date of Service: 05/27/2020 Time of Service: 08:55 Chief Complaint: patient is here today for inpatient follow up visit for thrombocytopenia. 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 He was treated with surgery and no adjuvant therapy, at the time adjuvant therapy was not indicated. We monitored him with systemic imaging for 2 years afterwards which showed no evidence of recurrence. He also had mitral valve endocarditis in 2019. Apparently he had a prostate infection which turnedinto a prostate abscess in late 2018 or early 2019. He is also type II diabetic, iron deficiency anemia, mood disorder. He has had about a week of advancing generalized weakness, nausea, vomiting, diarrhea, lightheadedness, anorexia and apathy. He initially came to the emergency room, he was treated supportively and blood cultures were drawn. A day later he was told to go back to the emergency room for positive MSSA in the blood cultures and he is admitted to the hospital. During this hospitalization he feels marginally better but overall still feels poorly. He had platelet count of 196,000 on April 21, on May 05 it was 79,000 and since May 07 it has been in the 30,000 range. He had a CAT scanof the abdomen and pelvis which did not show any obvious infection, only a little free fluid. He denies any problems with thrombocytopenia in the past. 05/27/20 He feels much better now out of the hospital. He states he is still a little lightheaded and shaky. He following with Lynn Botello RESEARCH DEVELOPMENT MANAGER currently. He is uninsured so cannot see Dr. Lina Mckeon any longer. He lost job and lookingfor new one. Platelets recovered completely prior to discharge. Has upcoming MRIbrain scheduled noncontrast. [facility] - Medical History Medical History: Medical History (Last Reviewed 05/08/20 @ 15:40 by Pantera Aguilera MD) Cholecystectomy planned Diabetes Iron (Fe) deficiency anemia Kidney cancer, primary, with metastasis from kidney to other site Migraine Restless leg syndrome TIA (transient ischemic attack) - Surgical History Surgical History: Surgical History (Last Reviewed 05/08/20 @ 15:40 by Pantera Aguilera MD) H/O eye surgery History of nephrectomy, right Hx of appendectomy - Family History Family History: Family History (Last Reviewed 05/08/20 @ 15:40 by Pantera Aguilera MD) Family/Other DM2 (diabetes mellitus, type 2) - Social History Smoking Status: Current every day smoker Tobacco Type: cigarettes Substance Use Type: None Substance Abuse Comment: OCC Home Medications & Allergies Allergies No Known Allergies Allergy (Verified 05/27/20 08:45) Home Medications Tresiba FlexTouch U-200 70 units SUB-Q DAILY 08/05/17 [History Confirmed 05/27/20] insulin aspart U-100 [Novolog Flexpen U-100 Insulin] See Protocol SUBCUT TIDWM 08/05/17 [History Confirmed 05/27/20] multivitamin 1 tab PO DAILY 11/23/19 [History Confirmed 05/27/20] sertraline [Zoloft] 50 mg PO DAILY 05/05/20 [History Confirmed 05/27/20] Objective - Height/Weight Height/Weight: Height 5 ft 11 in Weight 86.183 kg - Vital Signs Vital Signs: 05/27/20 08:46 Temperature 97.5 F L Pulse Rate [Left Brachial] 98 H Respiratory Rate 20 Blood Pressure [Left Arm] 148/100 H 02 Sat by Pulse Oximetry 98 - Emotional Needs Assessment Emotional Needs Assessment: Emotional Needs Identified? No Distress Screening Total 0 Physical Exam Narrative: ECOG PS: 0 General : patient is alert and oriented to person place and time, no acute distress. Neck: no JVD or thyromegaly. Lymph: no cervical, supraclavicular, axillary adenopathy. Heart: regular rate and rhythm no murmurs rubs or gallops. Abdomen: soft nontender nondistended, no hepatosplenomegaly. Lungs: clear to auscultation bilaterally, no wheezes rales or rhonchi. Extremities: no clubbing cyanosis or edema. Assessment and Plan (1) Renal cell cancer Adenopathy on CT imaging Ever since his nephrectomy he has had multiple images all of which show small areas of adenopathy in the inguinal, periaortic regions. I am not concerned about recurrence of his cancer at this point. History of stage III renal cell carcinoma He should consider following up with me in the outpatient setting. I follow with him for years after his initial diagnosis and he has been lost to follow-upsince 2017. He has very poorly controlled diabetes and hemoglobin A1c of 11.5 a few months ago. This is likely contributing to his acute on chronic renal insufficiency. His baseline renal function is represented by a creatinine of about 1.2 - Time with Patient Coordination of Care & Counseling Time: Greater than 50% of time spent with patient was for coordination of care (as documented) and coss-kk-woix counseling of patient and/or family. Attestation Statement - Physician Attestation f/u 1 year after repeat imaging. labs at f/u. Dictated By: Fredy Brito II, DO DD/ 0855 Signed By: <Electronically signed by Fredy Brito II, DO> 05/27/20 0918 [facility] Work Phone: Evaluation noteNo assessment information available [facility] Work Phone: Evaluation note* Diagnosis Onset Date Resolution Status Renal cell cancer acute [facility] Work Phone: History and physical note Author Devon Damico [facility] February 28, 2022 9:25am Note Date/Time February 28, 2022 9 :25am [facility] [address] [place] [address] Gastroenterology H&P Signed Patient: Silvreio Barahona MR#: [id number] : 1970 Acct:[id number] Age/Sex: 51 / M Adm Date: 2 Loc: Room: Type: [facility] Attending Dr: Devon Damico MD Copies to: Devon Damico MD [facility]~ Date of Service: 02/28/2022 HISTORY & PHYSICAL: Patient's history with special attention to the cardiovascular, pulmonary systems and the current problem was reviewed with the patient immediately prior to the procedure. Present medications and doses reviewed in the EMR. Allergies and pertinent laboratory tests were also reviewedat this time in the EMR. The physical examination, as below, was then performed. Indication, assessment and HPI: 51-year-old male presents for EGD and colonoscopy to evaluate abnormal CT finding Family history of GI malignancy? No PHYSICAL EXAMINATION Mouth and Pharynx : Moist mucus membranes, normal dentition Cardiac: Regular rate, regular rhythm Pulmonary: Clear to auscultation bilaterally, no wheezing Neurological: Alert and oriented x3, no focal deficits noted Abdomen: Abdomen soft, non-tender REVIEW OF SYSTEMS Constitutional: Denies malaise, fevers Cardiovascular: Denies chest pain, palpitations Respiratory: Denies shortness of breath, wheezing Gastrointestinal: Per HPI Genitourinary: Denies dysuria, polyuria Musculoskeletal: Denies joint swelling, joint stiffness Neurological: Denies numbness, tingling Integumentary: Denies rashes, skin lesions Endocrine: Denies fatigue, weight loss Written informed consent obtained from the patient. Risks (including but not limited to perforation, infection, bloating, bleeding, need for emergent surgeryand loss of life), benefits and alternatives explained and questions answered. The patient verbalized understanding. Based on history patient is an appropriate candidate for the procedure. Devon Damico MD Documented By: Devon Damico MD 02/28/22923 Signed By: <Electronically signed by Devon Damico MD> 02/28/22924 [facility] Work Phone: Hospital Discharge instructions Additional Instructions Use the eye antibiotic ointment 3 times a day in the left eye while awake May apply warm compresses for discomfort drainage May take loxn-rfa-bazpeto medication for discomfort Follow-up with [facility] or another Eye Center of your choice this week for recheck Go to an eye center immediately or return to the ER for worsening redness swelling pain loss of vision or any other concerns[facility] Work Phone: Hospital Discharge instructions Additional Instructions DISCHARGE INSTRUCTIONS FOR UPPER ENDOSCOPY WHAT TO EXPECT: - You may feel full, gassy or cramping after your procedure. In some cases, this may be from a few hours to a day. Walking may help relieve the discomfort. - Your throat may feel sore today from the scope that the doctor passed through your throat to visualize your stomach. Take a throat lozenge or suck on ice to ease the discomfort. - You may notice some streaks of blood in your sputum if the doctor has taken a biopsy. - You should begin to recover from anesthesia within 1 hour of the procedure, however may feel groggy for the next 24 hours. DO's AND DON'Ts: - Call your doctor right away if you have a hard abdomen, severe pain, vomiting or if you cough up large amounts of blood. - Call your doctor if you develop any rashes, hives or difficulty breathing. - If you take 81 mg aspirin for your heart it is safe to resume this medication. - If you take other blood thinner medications your doctor will instruct you when these can safely be resumed. - Do NOT drive for 24 hours. - Do NOT operate machinery such as power tools, [employer] mowers, snow blowers, sewing machines, etc. for 24 hours. - Avoid alcoholic beverages and drugs for allergies, nerves, or sleep. - Do NOT stay alone. Do NOT leave your child unattended. - Do NOT make important personal or business decisions or sign any legal documents. - Eat solid foods and drink liquids in smaller amounts than usual until normal appetite returns. If you should experience an upset stomach, liquids high in sugar content (soda, Samuel-Aid, non-acid juices) are recommended. - Do NOT smoke. - Do take it easy today. You need not stay in bed, but avoid strenuous activities such as jogging or working out. DISCHARGE INSTRUCTIONS FOR COLONOSCOPY WHAT TO EXPECT: - You may feel full, gassy or cramping after your procedure. In some cases, this may be from a few hours to a day. Walking may help relieve the discomfort. - If you have polyp(s) removed you may note some minor bloody discharge after your first bowel movements. - You should begin to recover from anesthesia within 1 hour of the procedure, however may feel groggy for the next 24 hours. DO's AND DON'Ts: - Call your doctor right away if you have a hard abdomen, sever pain, are passing lots of bright red blood or clots. - Call your doctor if you develop any rashes, hives or difficulty breathing. - Let your doctor know if you have not had a bowel movement by 3 days after your procedure. - If you take 81 mg aspirin for your heart it is safe to resume this medication. - If you take other blood thinner medications your doctor will instruct you when these can safely be resumed. - Do NOT drive for 24 hours. - Do NOT operate machinery such as power tools, [employer] mowers, snow blowers, sewing machines, etc. for 24 hours. - Avoid alcoholic beverages and drugs for allergies, nerves, or sleep. - Do NOT stay alone. Do NOT leave your child unattended. - Do NOT make important personal or business decisions or sign any legal documents. - Eat solid foods and drink liquids in smaller amounts than usual until normal appetite returns. If you should experience an upset stomach, liquids high in sugar content (soda, Samuel-Aid, non-acid juices) are recommended. - You can resume normal activities tomorrow. FOLLOW UP & RECOMMENDATIONS: - Follow-up with Dr. Damico as needed - Notify the doctor if you have any problems. - Repeat colonoscopy in 10 years. - Follow up with PCP. - Office number [phone].[facility] Work Phone: Hospital Discharge instructions Additional Instructions Take the antibiotic doxycycline twice a day for 10 days take with food and take until completed 1 hydrocodone every 6 hours for severe pain For less severe pain May take ibuprofen or Tylenol Keep the dressing clean and dry may change if needed but leave the packing in place Return in 2 days for recheck Return sooner if worsening redness swelling pain fever chills significantly elevated blood sugar or any other [facility] Work Phone: Hospital Discharge instructions Additional Instructions If your symptoms return/worsen or you develop any further concerns or symptoms please see your doctor or return to the emergency department immediately.[facility] Work Phone: Progress note Author Fredy Brito [facility] June 08, 2022 11:30am Note Date/Time June 08, 2022 1 1:25am [facility] at [address] [address] Hem/Onc Follow Up Note - OP Signed Patient: Silverio Barahona MR#: [id number] : 1970 Acct:[id number] Age/Sex: 51 / M Type: REG RCR Copies to: [facility]~ Date of Service: 06/08/2022 Time of Service: 11:24 - Assessment & Plan (1) Renal cell cancer Plan: Adenopathy on CT imaging Ever since his nephrectomy he has had multiple images all of which show small areas of adenopathy in the inguinal, periaortic regions. We are not concerned about recurrence of his cancer at this point. 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 resected around 2014 He was initially followed for years after his initial diagnosis but he had been lost to follow-up since 2016. He re-established care in 2019 during admission [facility]. He is now followed yearly with scans. Repeat scans 06/05/21 with no evidence of malignancy or metastases. We will repeat scans and labs in 1yr He continues to have very poorly controlled diabetes. This is likely contributing to his acute on chronic renal insufficiency. His baseline renal function is represented by a creatinine of about 1.2, which remains stable. Follow Up Instructions: f/u prn. - History of Present Illness Chief Complaint: Patient is here for a one year follow up with labs and scans for review. No concerns voiced at this time. 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 He was treated with surgery and no adjuvant therapy, at the time adjuvant therapy was not indicated. We monitored him with systemic imaging for 2 years afterwards which showed no evidence of recurrence. He also had mitral valve endocarditis in 2019. Apparently he had a prostate infection which turnedinto a prostate abscess in late 2018 or early 2019. He is also type II diabetic, iron deficiency anemia, mood disorder. He has had about a week of advancing generalized weakness, nausea, vomiting, diarrhea, lightheadedness, anorexia and apathy. He initially came to the emergency room, he was treated supportively and blood cultures were drawn. A day later he was told to go back to the emergency room for positive MSSA in the blood cultures and he is admitted to the hospital. During this hospitalization he feels marginally better but overall still feels poorly. He had platelet count of 196,000 on April 21, on May 05 it was 79,000 and since May 07 it has been in the 30,000 range. He had a CAT scanof the abdomen and pelvis which did not show any obvious infection, only a little free fluid. He denies any problems with thrombocytopenia in the past. 05/27/20 He feels much better now out of the hospital. He states he is still a little lightheaded and shaky. He following with Lynn Botello [employer]EARCH DEVELOPMENT MANAGER currently. He is uninsured so cannot see Dr. Lina Mckeon any longer. He lost job and lookingfor new one. Platelets recovered completely prior to discharge. Has upcoming MRIbrain scheduled noncontrast. 06/09/21 has been under a lot of stress with recent passing of his father last week he has been having n/v from previous bug he had and severe constipation. that has resolved on stool softener, but nausea continues occasionally now has diarrhea after taking stool softeners still has bouts of lightheadedness and shakiness, unchanged from last year. still following with Lynn Botello RESEARCH DEVELOPMENT MANAGER for this is drinking about 4 energy drinks per day, advised him to cut back on these and replace them with water or gatorade or similar otherwise doing ok 06/08/22 he has been trying to quit smoking. Recent ct c/a/p notes No acute cardiac pulmonary pathology. There is a similar 5 mm noncalcified nodule in the left lower lobe laterally. There is evidence of prior right-sided nephrectomy. No evidence of new/recurrent metastatic disease. no changes in meds or hospitalizations this year. - Physical Exam ECOG PS: 0 General : patient is alert and oriented to person place and time, no acute distress. Neck: no JVD or thyromegaly. Lymph: no cervical, supraclavicular, axillary adenopathy. Heart: regular rate and rhythm no murmurs rubs or gallops. Abdomen: soft nontender nondistended, no hepatosplenomegaly. Lungs: clear to auscultation bilaterally, no wheezes rales or rhonchi. Extremities: no clubbing cyanosis or edema. - Time with Patient Coordination of Care & Counseling Time: Greater than 50% of time spent with patient was for coordination of care (as documented) and [id number] counseling of patient and/or family. [facility] - Medical History Medical History: Medical History (Last Reviewed 05/14/22 @ 23:49 by Tae Anne PA-C) Diabetes History of kidney cancer Iron (Fe) deficiency anemia Migraine Restless leg syndrome TIA (transient ischemic attack) - Surgical History Surgical History: Surgical History (Last Reviewed 05/14/22 @ 23:49 by Tae Anne PA-C) H/O eye surgery History of cholecystectomy History of nephrectomy, right Hx of appendectomy - Family History Family History: Family History (Last Reviewed 05/14/22 @ 23:49 by Tae Anne PA-C) Family/Other DM2 (diabetes mellitus, type 2) - Social History Smoking Status: Current every day smoker Tobacco Type: cigarettes Substance Use Type: Alcohol Substance Abuse Comment: socially Additional Data - Additional Objective Data Height/Weight: Height 5 ft 11 in Weight 94.7 kg Vital Signs: 06/08/22 11:18 Temperature 98.1 F Pulse Rate [Left Brachial] 99 H Respiratory Rate 18 Blood Pressure [Left Arm] 124/83 02 Sat by Pulse Oximetry 98 Oxygen Delivery Method Room Air - Lab Results Diagram of Most Recent CBC and CMP 06/06/22 12:13 06/06/22 12:13 Labs - Last 7 Days 06/06/22 12:13: Carcinoembryonic Ag 4.8 H 06/06/22 12:13: PHA Creatinine Clear 74.07, Sodium 137, Potassium 4.5, Chloride 100, Carbon Dioxide 27.5, Anion Gap 14.0, BUN 21, Creatinine 1.35 H, Est GFR ( Amer) > 60, Est GFR (Non-Af Amer) 55, Glucose 204 H, Calcium 10.0, Total Bilirubin 0.6, AST 36, ALT 40, Alkaline Phosphatase 82, Total Protein 6.7,Albumin 4.0, Globulin 2.7, Albumin/Globulin Ratio 1.5 06/06/22 12:13: Corrected WBC 8.2, Uncorrected WBC Count 8.2, RBC 5.08, Hgb 15.2, Hct 45.3, MCV 89.3, MCH 29.8, MCHC 33.4, RDW 14.0, Plt Count 174, MPV 8.4,Neut % (Auto) 56.5, Lymph % (Auto) 31.4, [place] % (Auto) 7.9, Eos % (Auto) 3.6, Baso % (Auto) 0.6, Nucleat RBC Rel Count 0.1, Neut # (Auto) 4.6, Lymph # (Auto) 2.6, [place] # (Auto) 0.6, Eos # (Auto) 0.3, Baso # (Auto) 0.0 - Home Medications and Allergies Allergies/Adverse Reactions: Allergies No Known Allergies Allergy (Verified 06/08/22 11:18) Home Medications: Home Medications gabapentin 600 mg tablet (Neurontin) 600 mg PO QHS 11/10/20 [History Confirmed 03/07/22] hydrochlorothiazide 25 mg tablet 25 mg PO QAM 11/10/20 [History Confirmed 03/07/22] insulin aspart U-100 100 unit/mL subcutaneous solution See Rx Instructions .Route .COMPLEX 11/10/20 [History Confirmed 03/07/22] insulin glargine 100 unit/mL (3 mL) subcutaneous pen (Lantus Solostar U-100 Insulin) 70 unit subcut QHS 11/10/20 [History Confirmed 03/07/22] atorvastatin 40 mg tablet 40 mg PO DAILY 05/09/21 [History Confirmed 03/07/22] dulaglutide 1.5 mg/0.5 mL subcutaneous pen injector (Trulicity) 1.5 mg subcut QWEEK 05/09/21 [History Confirmed 03/07/22] tizanidine 4 mg tablet (Zanaflex) 4 mg PO Q6HR 05/09/21 [History Confirmed 03/07/22] venlafaxine 150 mg capsule,extended release 24 hr (Effexor XR) 150 mg PO DAILY 05/09/21 [History Confirmed 03/07/22] ropinirole 0.25 mg tablet 0.25 mg PO DAILY 09/04/21 [History Confirmed 03/07/22] albuterol sulfate 90 mcg/actuation aerosol inhaler (ProAir HFA) 1 inh inhalationQ4-6H PRN shortness of breath or wheezing #8.5 grams 11/28/21 [Rx Confirmed 03/07/22] dapagliflozin 10 mg tablet (Farxiga) 10 mg PO DAILY 12/15/21 [History Confirmed 03/07/22] doxycycline hyclate 100 mg tablet 100 mg PO BID 10 days #20 tabs 03/07/22 [Rx] hydrocodone 5 mg-acetaminophen 325 mg tablet 1 tab PO Q6H PRN pain 3 days #10 tabs 03/07/22 [Rx] azithromycin 250 mg tablet See Rx Instructions PO .COMPLEX #6 tabs 05/14/22 [Rx] benzonatate 200 mg capsule 200 mg PO TID PRN cough #14 caps 05/14/22 [Rx] Dictated By: Fredyseth Brito II, DO DD/ [id number] Signed By: <Electronically signed by Fredy Brito II, DO> 06/08/22 1130 [facility] Work Phone: Chief Complaint and Reason for Visit Chief Complaint Chest discomfort fro m a cold r10.32 r19.04 abd pain Blood in Stool Chief Complaint Chest discomfort fro m a cold r10.32 r19.04 abd pain Blood in Stool r42 Chief Complaint r10.32 r19.04 abd pain Blood in Stool r42 Lower Left Quadrant Mass Chief Complaint r10.32 r19.04 abd pain Blood in Stool r42 Lower Left Quadrant Mass L eye swollen Chief Complaint r10.32 r19.04 abd pain Blood in Stool r42 Lower Left Quadrant Mass L eye swollen Lower Left Quadrant Mass Chief Complaint r10.32 r19.04 abd pain Blood in Stool r42 Lower Left Quadrant Mass L eye swollen Lower Left Quadrant Mass mass in rt armpit Chief Complaint r10.32 r19.04 abd pain Blood in Stool r42 Lower Left Quadrant Mass L eye swollen Lower Left Quadrant Mass mass in rt armpit packing change Chief Complaint Lower Left Quadrant Mass L eye swollen Lower Left Quadrant Mass mass in rt armpit packing change SOB, cough Chief Complaint SOB, cough Thrombocytopenia Reason for Visit Renal cell cancer Chief Complaint SOB, cough Thrombocytopenia Screening for prostate cancer Type 2 diabetes anil Reason for Visit Renal cell cancer Chief Complaint SOB, cough Thrombocytopenia Screening for prostate cancer Type 2 diabetes anil L ear pain Reason for Visit Renal cell cancer Chief Complaint R07.89 Chief Complaint R07.89 I50.30 R07.89 Chief Complaint I65.22 Advance Directives No Advanced Directives Records Found Advance Directive Response Recorded Date/ Time Advance Directives No March 04, 2017 3:14pm Advance Directive Response Recorded Date/ Time Advance Directives No March 04, 2017 2:14pm Summary Purpose Family History No Family History Records Found Additional Source Comments Care Teams (unrecognized sec tion and content) Team Status: Inactive Member Role Status Dates Services [facility] Primary Care Provider Active Godwin Coker DO Emergency Provider Active Team Status: Inactive Member Role Status Dates Services [facility] Primary Care Provider Active Mohit Carlos DO Emergency Provider Active Team Status: Inactive Member Role Status Dates Services [facility] Primary Care Provider Active ONUR HillmanC Attending Provider Active Team Status: Inactive Member Role Status Dates Services [facility] Primary Care Provider Active Tae Anne PA-C Emergency Provider Active Team Status: Active Member Role Status Dates Services [facility] Primary Care Provider Active Team Status: Inactive Member Role Status Dates [facility] Primary Care Provider Active Devon Damico MD Attending Provider Active Team Status: Inactive Member Role Status Dates [facility] Primary Care Provider Active Kiya Riggins , BOW[employer]ING [employer]ATING [employer] DESK CLERK-BC Emergency Provider Active Team Status: Inactive Member Role Status Dates [facility] Primary Care Provider Active Fredy Mayorga APRN Emergency Provider Active Team Status: Active Member Role Status Dates [facility] Primary Care Provider Active Fredy Brito II, DO Attending Provider Active Team Status: Inactive Member Role Status Dates [facility] Primary Care Provider Active JOSE Hillman Attending Provider Active Mitch Wallace DO Referring Provider Active Goals (unrecognized section and content) Goals may be documented in a n alternate sectionGoals may be documented in an alternate sectionGoals may be documented in an alternate sectionGoals may be documented in an alternate sectionGoals may be documented in an alternate sectionGoals may be documented in an alternate sectionGoals may be documented in an alternate sectionGoals may be documented in an alternate sectionGoals may be documented in an alternate sectionGoals may be documented in an alternate section (unrecognized sect ion and content) No Status Records FoundNo Status Records Found INFORMATION SOURCE (unrecogn ized section and content) DATE CREATED AUTHOR 01/26/2023 [facility] DATE CREATED AUTHOR AUTHOR'S ORGANIZ ATION 07/31/2023 [facility] FOR RECORDS PERTAINING TO PATIENTS WHO ARE OR HAVE BEEN ENROLLED IN A CHEMICAL DEPENDENCY/SUBSTANCEABUSE PROGRAM, SOME INFORMATION MAY BE OMITTED. This clinical summary was aggregated from multiple sources. Caution should be exercised in using it in the provision of clinical care. This summary normalizes information from multiple sources, and as a consequence, information in this document may materially change the coding, format and clinical context of patient data. In addition, data may be omitted in some cases. CLINICAL DECISIONS SHOULD BE BASED ON THE PRIMARY CLINICAL RECORDS. [facility]. provides no warranty or guarantee of the accuracy or completeness of information in this document.
--- NOTE | 2023-08-09 02:18 | ED_ITS ---
HPI - Skin/Abscess/Foreign Bdy General Chief complaint: Skin/Abscess/Foreign Body Stated complaint: RASH Time Seen by Provider: 08/09/23 01:56 Mode of arrival: walk-in Limitations: no limitations History of Present Illness HPI narrative: This 52-year-old male presents for evaluation of one to 2 weeks of a pruritic skin rash on both flanks and left arm. He has several erythematous patches with central clearing. He states he does not know if this recently seen his diabetes or something else. The patient does have pets at home. He has not had a fever. There is no petechia or purpura. No additional injuries or complaints. Related Data Home Medications ?Medication ?Instructions ?Recorded ?Confirmed atorvastatin 40 mg tablet 40 mg PO DAILY 03/19/23 08/09/23 buspirone 10 mg tablet 10 mg PO DAILY 03/19/23 08/09/23 dapagliflozin propanediol 10 mg 10 mg PO DAILY 03/19/23 08/09/23 tablet (Farxiga) gabapentin 600 mg tablet 600 mg PO Q12H PRN pain 03/19/23 08/09/23 hydrochlorothiazide 25 mg tablet 25 mg PO DAILY 03/19/23 08/09/23 insulin aspart U-100 100 unit/mL 7 unit subcut DAILY 03/19/23 08/09/23 subcutaneous solution insulin glargine 100 unit/mL (3 unit subcut .meals 03/19/23 mL) subcutaneous pen (Lantus Solostar U-100 Insulin) lisinopril 5 mg tablet 5 mg PO DAILY 03/19/23 08/09/23 metoprolol succinate 25 mg 25 mg PO DAILY 03/19/23 08/09/23 tablet,extended release 24 hr ropinirole 0.25 mg tablet 0.25 mg PO DAILY 03/19/23 08/09/23 tizanidine 4 mg tablet 4 mg PO DAILY PRN pain 03/19/23 08/09/23 Previous Rx's ?Medication ?Instructions ?Recorded hyoscyamine sulfate 0.125 mg 0.125 mg PO Q6H PRN abdominal pain 04/23/23 tablet (Levsin) #12 tabs ondansetron 4 mg disintegrating 4 mg PO Q6H PRN nausea and 04/23/23 tablet vomiting #12 tabs Allergies Allergy/AdvReac Type Severity Reaction Status Date / Time No Known Drug Allergies Allergy Verified 08/09/23 01:54 Review of Systems ROS Status of ROS 10 or more systems reviewed and unremark able except as noted in history and below [facility] Medical History (Updated 08/09/23 @ 02:26 by Toshia Santiago MD) Diabetes ?E11.9 - Type 2 diabetes mellitus without complications (ICD-10) Surgical History (Updated 11/12/22 @ 02:23 by Diana Mcghee) History of kidney surgery ?Z98.890 - Other specified postprocedural states (ICD-10) History of cholecystectomy ?Z90.49 - Acquired absence of other specified parts of digestive tract (ICD- 10) History of appendectomy ?Z90.49 - Acquired absence of other specified parts of digestive tract (ICD- 10) Social History Smoking status: Current every day smoker Exam Narrative Exam Narrative: Nurses note and vital signs reviewed and patient is not hypoxic. Blood pressure is elevated at 160/100 General: The patient appears well and in no apparent distress. Patient is resting comfortably on cart. Skin: Skin is warm, dry, there are several irregular circular patches with red edges and central clearing consistent with tinea on the patient's bilateral flanks and left arm. There is no petechia or purpura. There is no sign of any fast station Head: Normocephalic, atraumatic Eye: Normal conjunctiva, no drainage, EOMI. PERRL Musculoskeletal: Skin rash as ascribed above, otherwise normal musculoskeletal upper and lower extremity exam Neurological: A&O x4, normal speech Psychiatric: Cooperative Constitutional Vital Signs, click to edit/add: Last Vital Signs Temp 97.9 F 08/09/23 01:50 Pulse 96 H 08/09/23 01:50 Resp 16 08/09/23 01:50 BP 160/100 H 08/09/23 01:50 Pulse Ox 100 08/09/23 01:50 O2 Del Method Room Air 08/09/23 01:50 Course Vital Signs Vital signs: Vital Signs Temperature 97.9 F 08/09/23 01:50 Pulse Rate 96 H 08/09/23 01:50 Respiratory Rate 16 08/09/23 01:50 Blood Pressure 160/100 H 08/09/23 01:50 Pulse Oximetry 100 08/09/23 01:50 Oxygen Delivery Method Room Air 08/09/23 01:50 Temperature 97.9 F 08/09/23 01:50 Pulse Rate 96 H 08/09/23 01:50 Respiratory Rate 16 08/09/23 01:50 Blood Pressure 160/100 H 08/09/23 01:50 Pulse Oximetry 100 08/09/23 01:50 Oxygen Delivery Method Room Air 08/09/23 01:50 MDM - Skin/Abscess/Foreign Bdy MDM Narrative Medical decision making narrative: This patien presents for evaluation of one to 2 weeks of a pruritic skin rash. Clinically he has tinea. He was given a prescription for clotrimazole and encouraged to use it twice daily. Discharge Plan Discharge Stand Alone Forms: Portal Instructions Chief Complaint: Skin/Abscess/Foreign Body Clinical Impression: Tinea corporis Patient Disposition: Home, Self-Care Time of Disposition Decision: 02:27 Condition: Good Prescriptions / Home Meds: No Action hyoscyamine sulfate [Levsin] 0.125 mg tablet 0.125 mg PO Q6H PRN (Reason: abdominal pain) Qty: 12 0RF ondansetron 4 mg tablet,disintegrating 4 mg PO Q6H PRN (Reason: nausea and vomiting) Qty: 12 0RF atorvastatin 40 mg tablet 40 mg PO DAILY buspirone 10 mg tablet 10 mg PO DAILY dapagliflozin propanediol [Farxiga] 10 mg tablet 10 mg PO DAILY gabapentin 600 mg tablet 600 mg PO Q12H PRN (Reason: pain) hydrochlorothiazide 25 mg tablet 25 mg PO DAILY lisinopril 5 mg tablet 5 mg PO DAILY metoprolol succinate 25 mg tablet extended release 24 hr 25 mg PO DAILY ropinirole 0.25 mg tablet 0.25 mg PO DAILY tizanidine 4 mg tablet 4 mg PO DAILY PRN (Reason: pain) insulin glargine [Lantus Solostar U-100 Insulin] 100 unit/mL (3 mL) insulin pen SUBCUT .meals Rx Instructions: Sliding Scale insulin aspart U-100 100 unit/mL solution 7 unit subcut DAILY Print Language: Nicaraguan Instructions: Tinea Corporis (ED) Referrals: Physician,Non-Staff, MD [Primary Care Provider] - 1 week
--- NOTE | 2023-08-09 02:33 | PC.NURSE ---
Pt given discharge instructions and script for cream to apply to affected areas 2x daily. Pt encouraged to keep areas clean and dry and that it can be easily spread. pt told to follow up with his family
== END 2023-08-09 02:35 | disposition home or self-care (01) ==
PROVIDERS: Emergency Provider Emergency Medicine
DX: B35.4 Tinea corporis (principal); E11.9 Type 2 diabetes mellitus without complications; F17.210 Nicotine dependence, cigarettes, uncomplicated; Z90.49 Acquired absence of other specified parts of digestive tract; Z79.4 Long term (current) use of insulin; Z79.899 Other long term (current) drug therapy
CPT/HCPCS: 99283

== ENCOUNTER 2023-09-04 19:00 | Emergency (ER) | payer OTHER, SELFPAY ==
[2023-09-04 19:02] VITALS: BP 169/115; PULSE 100; TEMP 36.7; O2SAT 100; BMI 29.0
--- OUTSIDE RECORDS SUMMARY | 2023-09-04 19:07 | XMS_ITS | CCD ---
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 Kiya E Emergency Provider MACIE Mayorga Emergency Provider [facility] Primary Care Provider MD Devon Damico Attending Provider Vaishnavi, [facility] Kiya E Emergency Provider MACIE Mayorga Emergency Provider [phone] SANDRO Anne Emergency Provider [facility] Primary Care Provider [phone] DO Fredy Brito II Attending Provider [phone] JOSE Botello Attending Provider DO Mohit Carlos Emergency Provider [facility] Primary Care Provider [phone] JOSE Botello Attending Provider Jorge Pompa Attending Unavailable DO Mitch Wallace Referring Provider [phone] [facility] Primary Care Provider JOSE Botello Attending Provider Spasic Lynn E Admitting Unavailable Spasic, Lynn E Attending Unavailable [facility], Services Primary Care U navailable Spasic, Lynn E Admitting Unavailable Spasic, Lynn E Attending Unavailable [facility], Services Primary Care Unavaila ble Mitch Wallace Referring Unavailable Spasic, Lynn Madison Attending Unavailable Spasic, Lynn E Admitting Unavailable [facility], Services Primary Care Unavaila ble [facility], Services Primary Care U navailable Clem Gomes Admitting Unavailable Clem Gomes Attending Unavailable Karthikeyansic, Lynn E Admitting Unavailable Spasic, Lynn E Attending Unavailable [facility] Primary Care Unavaila ble Medications Current [...] tablet by mouth every six hours Hydrocodone-Acetaminophen ([place]) 5-325 mg tablet Discontinued 1 TAB PO Q6H 10 April 22, 2018 September 20, 2018 9:02pm Start: 11-27-2017 End: 12-04-2017 take 1 tablet by mouth every six hours Hydrocodone-Acetaminophen Discontinued 1 TAB PO Q6H 07 12November 27, 2017 December 03, 2017 11:01pm Start: 11-07-2017 End: 04-22-2018 take 1 tablet by mouth every four hours Hydrocodone-Acetaminophen ([place]) 5-325 mg tablet Discontinued 1 TAB PO Q4H November 07, 2017 April 22, 2018 6:48pm Start: 09-29-2017 End: 04-22-2018 take 1 tablet by mouth every four to six hours Hydrocodone-Acetaminophen ([place]) 5-325 mg Tablet Discontinued 1 TAB PO EVERY 4-6 HOURS 7 September 29, 2017 April 22, 2018 6:48pm [id number] 200 actuat albuterol 0.09 mg/actuat metered dose [...] hours docusate sodium 50 mg / sennosides, long-term 8.6 mg oral tablet (15 sources) Start: [...] before start of emetogenic chemotherapy [place] b [id number] unt/ml / trimethoprim 1 mg/ml ophthalmic solution [...] conon 0 07-18-2023 CT abdomen pelvis wo [facility] [address] [address] [address] Scan Report Signed Patient: Silverio Barahona MR#: [id number] : 1970 Acct:[id number] Age/Sex: 52 / M ADM Date: 07/18/23 Loc: ER Room: Type: [facility] ER Attending Dr: Copies to: Clem [...] Anita Henao M.D.07/18/2023 5:44 PM Dictation Location: [place] [address] Transcribed By: CHOLO 07/18/23 3548 Dictated By: Anita Henao MD 07/18/23 1737 Signed By: 07/18/23 1744 Normal [facility] Complete Blood Count Auto Di ffon 07-18-2023 Basophils (Bld) [#/Vol] 0.1 10*3/uL Normal 0.0-0.2 [facility] Comment on above: Result Comment: PERF ORMED BY: [place] [address] PATHOLOGIST MAIL COURIER ALYSSA MOSQUEDA M.D. Performed By: #### L DLD, TSH3 wRFLX, CMP, LIPID, CBC #### [address] Basophils/100 WBC (Bld) 1.5 % Normal . [facility] Comment on above: Performed By: #### L DLD, TSH3 wRFLX, CMP, LIPID, CBC #### [address] Eosinophils (Bld) [#/Vol] 0.1 10*3/uL Normal 0.0-0.45 [facility] Comment on above: Performed By: #### L DLD, TSH3 wRFLX, CMP, LIPID, CBC #### [address] Eosinophils/100 WBC (Bld) 0.6 % Normal . [facility] Comment on above: Performed By: #### L DLD, TSH3 wRFLX, CMP, LIPID, CBC #### [address] Erythrocyte distribution width (RBC) [Ratio] 13.9 % Normal 12.0-14.8 [facility] Comment on above: Performed By: #### L DLD, TSH3 wRFLX, CMP, LIPID, CBC #### [address] Hematocrit (Bld) [Volume fraction] 44.1 % Normal 38.8-50.0 [facility] Comment on above: Performed By: #### L DLD, TSH3 wRFLX, CMP, LIPID, CBC #### [address] Hemoglobin (Bld) [Mass/Vol] 15.2 g/dL Normal 13.0-17.0 [facility] Comment on above: Performed By: #### L DLD, TSH3 wRFLX, CMP, LIPID, CBC #### [address] Lymphocytes (Bld) [#/Vol] 3.3 10*3/uL Normal 1.00-4.8 [facility] Comment on above: Performed By: #### L DLD, TSH3 wRFLX, CMP, LIPID, CBC #### [address] Lymphocytes/100 WBC (Bld) 34.2 % Normal . [facility] Comment on above: Performed By: #### L DLD, TSH3 wRFLX, CMP, LIPID, CBC #### [address] MCH (RBC) [Entitic mass] 30.5 pg Normal 27.5-35.2 [facility] Comment on above: Performed By: #### L DLD, TSH3 wRFLX, CMP, LIPID, CBC #### [address] MCV (RBC) [Entitic vol] 88.4 fL Normal 83.5-101 [facility] Comment on above: Performed By: #### L DLD, TSH3 wRFLX, CMP, LIPID, CBC #### [address] Mean Corpuscular HGB Conc 34.5 g/dL Normal 32.5-35.6 [facility] Comment on above: Performed By: #### L DLD, TSH3 wRFLX, CMP, LIPID, CBC #### [address] Monocytes (Bld) [#/Vol] 0.6 10*3/uL Normal 0.0-0.8 [facility] Comment on above: Performed By: #### L DLD, TSH3 wRFLX, CMP, LIPID, CBC #### [address] Monocytes/100 WBC (Bld) 15.71 % Normal 0.00-20.00 [facility] Comment on above: Performed By: #### L DLD, TSH3 wRFLX, CMP, LIPID, CBC #### [address] Monocytes/100 WBC (Bld) 6.8 % Normal . [facility] Comment on above: Performed By: #### L DLD, TSH3 wRFLX, CMP, LIPID, CBC #### [address] Neutrophils (Bld) [#/Vol] 5.4 10*3/uL Normal 1.8-7.7 [facility] Comment on above: Performed By: #### L DLD, TSH3 wRFLX, CMP, LIPID, CBC #### [address] Neutrophils/100 WBC (Bld) 56.9 % Normal . [facility] Comment on above: Performed By: #### L DLD, TSH3 wRFLX, CMP, LIPID, CBC #### [address] NRBC% 0.2 /100{WBC} Normal 0-0.5 [facility] Comment on above: Performed By: #### L DLD, TSH3 wRFLX, CMP, LIPID, CBC #### [address] Platelet mean volume (Bld) [Entitic vol] 8.2 fL Normal 6.6-10.1 [facility] Comment on above: Performed By: #### L DLD, TSH3 wRFLX, CMP, LIPID, CBC #### [place] [address] [place] Platelets (Bld) [#/Vol] 189 10*3/uL Normal 150-450 [facility] Comment on above: Performed By: #### L DLD, TSH3 wRFLX, CMP, LIPID, CBC #### [facility] [address] RBC (Bld) [#/Vol] 4.99 10*6/uL Normal 3.90-5.60 [facility] Comment on above: Performed By: #### L DLD, TSH3 wRFLX, CMP, LIPID, CBC #### [facility] [address] WBC (Bld) [#/Vol] 9.5 10*3/uL Normal 4.1-10.5 [facility] Comment on above: Performed By: #### L DLD, TSH3 wRFLX, CMP, LIPID, CBC #### [facility] [address] [place] [address] Comprehensive Metabolic Pane yumi 07-18-2023 Albumin [Mass/Vol] 4.3 g/dL Normal 3.5-5.7 [facility] Comment on above: Performed By: #### L DLD, TSH3 wRFLX, CMP, LIPID, CBC #### [address] Albumin/Globulin [Mass ratio] 1.4 {ratio} Normal [facility] Comment on above: Performed By: #### L DLD, TSH3 wRFLX, CMP, LIPID, CBC #### [address] ALP [Catalytic activity/Vol] 71 U/L Normal 34-104 [facility] Comment on above: Performed By: #### L DLD, TSH3 wRFLX, CMP, LIPID, CBC #### [address] ALT [Catalytic activity/Vol] 28 U/L Normal 7-52 [facility] Comment on above: Performed By: #### L DLD, TSH3 wRFLX, CMP, LIPID, CBC #### [facility] [address] [place] [address] Anion gap [Moles/Vol] 9.7 mmol/L Normal 6.0-15.0 [facility] Comment on above: Performed By: #### L DLD, TSH3 wRFLX, CMP, LIPID, CBC #### [facility] [address] AST [Catalytic activity/Vol] 24 U/L Normal 13-39 [facility] Comment on above: Performed By: #### L DLD, TSH3 wRFLX, CMP, LIPID, CBC #### [facility] [address] Bilirubin [Mass/Vol] 0.5 mg/dL Normal 0.3-1.[address] [facility] Comment on above: Performed By: #### L DLD, TSH3 wRFLX, CMP, LIPID, CBC #### [facility] [address] [place] [address] Calcium [Mass/Vol] 9.3 mg/dL Normal 8.6-10.3 [facility] Comment on above: Performed By: #### L DLD, TSH3 wRFLX, CMP, LIPID, CBC #### [address] Chloride [Moles/Vol] 104 mmol/L Normal 98-[address] [facility] Comment on above: Performed By: #### L DLD, TSH3 wRFLX, CMP, LIPID, CBC #### [address] CO2 [Moles/Vol] 28.5 mmol/L Normal 21.0-31.0 [facility] Comment on above: Performed By: #### L DLD, TSH3 wRFLX, CMP, LIPID, CBC #### [address] Creatinine [Mass/Vol] 1.10 mg/dL Normal 0.70-1.30 [facility] Comment on above: Performed By: #### L DLD, TSH3 wRFLX, CMP, LIPID, CBC #### [address] Creatinine Clr Calc Pharmacy 89.06 Normal [facility] Comment on above: Performed By: #### L DLD, TSH3 wRFLX, CMP, LIPID, CBC #### [facility] [address] [place] [address] [place] GFR/1.73 sq M.predicted MDRD (S/P/Bld) [Vol rate/Area] mL/min/{1.73_m2} [facility] Comment on above: Performed By: #### L DLD, TSH3 wRFLX, CMP, LIPID, CBC #### [facility] [address] Globulin (S) [Mass/Vol] 3.1 g/dL [facility] Comment on above: Performed By: #### L DLD, TSH3 wRFLX, CMP, LIPID, CBC #### [address] Glucose [Mass/Vol] 104 mg/dL High 70-100 [facility] Comment on above: Result Comment: [place] Glucose Reference Range is dependent on time and content of last meal. Glucose of more than 200 mg/dL in a nonstressed, ambulatory subject supports the diagnosis of Diabetes Mellitus. ADA recommended reference range Performed By: #### L DLD, TSH3 wRFLX, CMP, LIPID, CBC #### [address] Potassium [Moles/Vol] 4.2 mmol/L Normal 3.5-5.1 [facility] Comment on above: Performed By: #### L DLD, TSH3 wRFLX, CMP, LIPID, CBC #### [place] [address] [place] Protein [Mass/Vol] 7.4 g/dL Normal 6.4-8.9 [facility] Comment on above: Performed By: #### L DLD, TSH3 wRFLX, CMP, LIPID, CBC #### [place] [address] [place] Sodium [Moles/Vol] 138 mmol/L Normal 136-145 [facility] Comment on above: Performed By: #### L DLD, TSH3 wRFLX, CMP, LIPID, CBC #### [place] [address] [place] Urea nitrogen [Mass/Vol] 16 mg/dL Normal 7-25 [facility] Comment on above: Performed By: #### L DLD, TSH3 wRFLX, CMP, LIPID, CBC #### [facility] [address] Dipstick and Microscopicon 0 07-18-2023 Appearance (U) Clear Normal Clear [facility] Comment on above: Order Comment: Reaso n for Exam Type 2 diabetes mellitus with other specified complication Performed By: #### L DLD, TSH3 wRFLX, CMP, LIPID, CBC #### [facility] [address] Bacteria,Urine None Seen Normal None Seen [facility] Comment on above: Order Comment: Reaso n for Exam Type 2 diabetes mellitus with other specified complication Performed By: #### L DLD, TSH3 wRFLX, CMP, LIPID, CBC #### [facility] [address] [place] [address] Bilirubin,Urine Negative Normal Negative [facility] Comment on above: Order Comment: Reaso n for Exam Type 2 diabetes mellitus with other specified complication Performed By: #### L DLD, TSH3 wRFLX, CMP, LIPID, CBC #### [facility] [address] [place] [address] Color (U) Yellow Normal Yellow [facility] Comment on above: Order Comment: Reaso n for Exam Type 2 diabetes mellitus with other specified complication Performed By: #### L DLD, TSH3 wRFLX, CMP, LIPID, CBC #### [facility] [address] Glucose Ql (U) >=1000 High Normal [facility] Comment on above: Order Comment: Reaso n for Exam Type 2 diabetes mellitus with other specified complication Performed By: #### L DLD, TSH3 wRFLX, CMP, LIPID, CBC #### [facility] [address] Hyaline Casts,Urine None Seen Normal 0-8 [facility] Comment on above: Order Comment: Reaso n for Exam Type 2 diabetes mellitus with other specified complication Result Comment: PERF ORMED BY: [place] [address] PATHOLOGIST MAIL COURIER ALYSSA MOSQUEDA M.D. Performed By: #### L DLD, TSH3 wRFLX, CMP, LIPID, CBC #### [address] Ketones Ql (U) Negative Normal Negative [facility] Comment on above: Order Comment: Reaso n for Exam Type 2 diabetes mellitus with other specified complication Performed By: #### L DLD, TSH3 wRFLX, CMP, LIPID, CBC #### [address] Leukocyte esterase Test strip Ql (U) Negative Normal Negative [facility] Comment on above: Order Comment: Reaso n for Exam Type 2 diabetes mellitus with other specified complication Performed By: #### L DLD, TSH3 wRFLX, CMP, LIPID, CBC #### [address] Nitrite,Urine Negative Normal Negative [facility] Comment on above: Order Comment: Reaso n for Exam Type 2 diabetes mellitus with other specified complication Performed By: #### L DLD, TSH3 wRFLX, CMP, LIPID, CBC #### [address] Occult Blood,Urine Negative Normal Negative [facility] Comment on above: Order Comment: Reaso n for Exam Type 2 diabetes mellitus with other specified complication Result Comment: PERF ORMED BY: [place] [address] PATHOLOGIST MAIL COURIER ALYSSA MOSQUEDA M.D. Performed By: #### L DLD, TSH3 wRFLX, CMP, LIPID, CBC #### [address] pH (U) 6.5 [pH] Normal 5.0-9.0 [facility] Comment on above: Order Comment: Reaso n for Exam Type 2 diabetes mellitus with other specified complication Performed By: #### L DLD, TSH3 wRFLX, CMP, LIPID, CBC #### [place] [id number] [place] Protein (U) [Mass/Vol] 30 mg/dL High Negative [facility] Comment on above: Order Comment: Reaso n for Exam Type 2 diabetes mellitus with other specified complication Performed By: #### L DLD, TSH3 wRFLX, CMP, LIPID, CBC #### [facility] [address] [place] [address] RBC LM.HPF (Urine sed) [#/Area] 0 /[HPF] Normal 0-4 [facility] Comment on above: Order Comment: Reaso n for Exam Type 2 diabetes mellitus with other specified complication Performed By: #### L DLD, TSH3 wRFLX, CMP, LIPID, CBC #### [address] Specificy [place],Urine 1.021 Normal 1.001-1.030 [facility] Comment on above: Order Comment: Reaso n for Exam Type 2 diabetes mellitus with other specified complication Performed By: #### L DLD, TSH3 wRFLX, CMP, LIPID, CBC #### [address] Squamous Epithelial Cell,Urine None Seen Normal 0-2 [facility] Comment on above: Order Comment: Reaso n for Exam Type 2 diabetes mellitus with other specified complication Performed By: #### L DLD, TSH3 wRFLX, CMP, LIPID, CBC #### [address] Urobilinogen,Urine Normal Normal Normal [facility] Comment on above: Order Comment: Reaso n for Exam Type 2 diabetes mellitus with other specified complication Performed By: #### L DLD, TSH3 wRFLX, CMP, LIPID, CBC #### [address] WBC,Urine None Seen Normal 0-4 [facility] Comment on above: Order Comment: Reaso n for Exam Type 2 diabetes mellitus with other specified complication Performed By: #### L DLD, TSH3 wRFLX, CMP, LIPID, CBC #### [address] Hepatic Panelon 07-18-2023 Bilirubin,Indirect 0.4 mg/dL Normal [facility] Comment on above: Performed By: #### L DLD, TSH3 wRFLX, CMP, LIPID, CBC #### [address] Bilirubin.indirect [Mass/Vol] 0.10 mg/dL Normal 0.03-0.18 [facility] Comment on above: Performed By: #### L DLD, TSH3 wRFLX, CMP, LIPID, CBC #### [address] Lipaseon 07-18-2023 Lipase [Catalytic activity/Vol] 70.0 U/L Normal 11.0-82.0 [facility] Comment on above: Result Comment: PERF ORMED BY: [place] [address] PATHOLOGIST MAIL COURIER ALYSSA MOSQUEDA M.D. Performed By: #### L DLD, TSH3 wRFLX, CMP, LIPID, CBC #### [address] Complete Blood Count Auto Di ffon 07-16-2023 Basophils (Bld) [#/Vol] 0.1 10*3/uL Normal 0.0-0.2 [facility] Comment on above: Order Comment: Reaso n for Exam Type 2 diabetes mellitus with other specified complication Result Comment: PERF ORMED BY: [place] [address] PATHOLOGIST MAIL COURIER ALYSSA MOSQUEDA M.D. Performed By: #### C BC, FE and TIBC, LIPID, B12, [id number], TSH3 wRFLX, CMP, PSAS #### [address] Basophils/100 WBC (Bld) 1.5 % Normal . [facility] Comment on above: Order Comment: Reaso n for Exam Type 2 diabetes mellitus with other specified complication Performed By: #### C BC, FE and TIBC, LIPID, B12, [id number], TSH3 wRFLX, CMP, PSAS #### [address] Eosinophils (Bld) [#/Vol] 0.1 10*3/uL Normal 0.0-0.45 [facility] Comment on above: Order Comment: Reaso n for Exam Type 2 diabetes mellitus with other specified complication Performed By: #### C BC, FE and TIBC, LIPID, B12, [id number], TSH3 wRFLX, CMP, PSAS #### [address] Eosinophils/100 WBC (Bld) 0.9 % Normal . [facility] Comment on above: Order Comment: Reaso n for Exam Type 2 diabetes mellitus with other specified complication Performed By: #### C BC, FE and TIBC, LIPID, B12, [id number], TSH3 wRFLX, CMP, PSAS #### [address] Erythrocyte distribution width (RBC) [Ratio] 13.8 % Normal 12.0-14.8 [facility] Comment on above: Order Comment: Reaso n for Exam Type 2 diabetes mellitus with other specified complication Performed By: #### C BC, FE and TIBC, LIPID, B12, [id number], TSH3 wRFLX, CMP, PSAS #### [address] Hematocrit (Bld) [Volume fraction] 43.9 % Normal 38.8-50.0 [facility] Comment on above: Order Comment: Reaso n for Exam Type 2 diabetes mellitus with other specified complication Performed By: #### C BC, FE and TIBC, LIPID, B12, [id number], TSH3 wRFLX, CMP, PSAS #### [address] Hemoglobin (Bld) [Mass/Vol] 15.1 g/dL Normal 13.0-17.0 [facility] Comment on above: Order Comment: Reaso n for Exam Type 2 diabetes mellitus with other specified complication Performed By: #### C BC, FE and TIBC, LIPID, B12, [id number], TSH3 wRFLX, CMP, PSAS #### [address] Lymphocytes (Bld) [#/Vol] 2.7 10*3/uL Normal 1.00-4.8 [facility] Comment on above: Order Comment: Reaso n for Exam Type 2 diabetes mellitus with other specified complication Performed By: #### C BC, FE and TIBC, LIPID, B12, [id number], TSH3 wRFLX, CMP, PSAS #### [address] Lymphocytes/100 WBC (Bld) 35.8 % Normal . [facility] Comment on above: Order Comment: Reaso n for Exam Type 2 diabetes mellitus with other specified complication Performed By: #### C BC, FE and TIBC, LIPID, B12, [id number], TSH3 wRFLX, CMP, PSAS #### [address] MCH (RBC) [Entitic mass] 30.5 pg Normal 27.5-35.2 [facility] Comment on above: Order Comment: Reaso n for Exam Type 2 diabetes mellitus with other specified complication Performed By: #### C BC, FE and TIBC, LIPID, B12, [id number], TSH3 wRFLX, CMP, PSAS #### [address] MCV (RBC) [Entitic vol] 88.9 fL Normal 83.5-101 [facility] Comment on above: Order Comment: Reaso n for Exam Type 2 diabetes mellitus with other specified complication Performed By: #### C BC, FE and TIBC, LIPID, B12, [id number], TSH3 wRFLX, CMP, PSAS #### [address] Mean Corpuscular HGB Conc 34.3 g/dL Normal 32.5-35.6 [facility] Comment on above: Order Comment: Reaso n for Exam Type 2 diabetes mellitus with other specified complication Performed By: #### C BC, FE and TIBC, LIPID, B12, [id number], TSH3 wRFLX, CMP, PSAS #### [facility] [address] [place] [address] [place] Monocytes (Bld) [#/Vol] 0.5 10*3/uL Normal 0.0-0.8 [facility] Comment on above: Order Comment: Reaso n for Exam Type 2 diabetes mellitus with other specified complication Performed By: #### C BC, FE and TIBC, LIPID, B12, [id number], TSH3 wRFLX, CMP, PSAS #### [facility] [address] [place] [address] [place] Monocytes/100 WBC (Bld) 6.5 % Normal . [facility] Comment on above: Order Comment: Reaso n for Exam Type 2 diabetes mellitus with other specified complication Performed By: #### C BC, FE and TIBC, LIPID, B12, [id number], TSH3 wRFLX, CMP, PSAS #### [facility] [address] [place] [address] [place] Neutrophils (Bld) [#/Vol] 4.2 10*3/uL Normal 1.8-7.7 [facility] Comment on above: Order Comment: Reaso n for Exam Type 2 diabetes mellitus with other specified complication Performed By: #### C BC, FE and TIBC, LIPID, B12, [id number], TSH3 wRFLX, CMP, PSAS #### [facility] [address] [place] [address] [place] Neutrophils/100 WBC (Bld) 55.3 % Normal . [facility] Comment on above: Order Comment: Reaso n for Exam Type 2 diabetes mellitus with other specified complication Performed By: #### C BC, FE and TIBC, LIPID, B12, [id number], TSH3 wRFLX, CMP, PSAS #### [facility] [address] [place] [address] [place] NRBC% 0.0 /100{WBC} Normal 0-0.5 [facility] Comment on above: Order Comment: Reaso n for Exam Type 2 diabetes mellitus with other specified complication Performed By: #### C BC, FE and TIBC, LIPID, B12, [id number], TSH3 wRFLX, CMP, PSAS #### [facility] [address] Platelet mean volume (Bld) [Entitic vol] 9.2 fL Normal 6.6-10.1 [facility] Comment on above: Order Comment: Reaso n for Exam Type 2 diabetes mellitus with other specified complication Performed By: #### C BC, FE and TIBC, LIPID, B12, [id number], TSH3 wRFLX, CMP, PSAS #### [facility] [address] Platelets (Bld) [#/Vol] 192 10*3/uL Normal 150-450 [facility] Comment on above: Order Comment: Reaso n for Exam Type 2 diabetes mellitus with other specified complication Performed By: #### C BC, FE and TIBC, LIPID, B12, [id number], TSH3 wRFLX, CMP, PSAS #### [address] RBC (Bld) [#/Vol] 4.94 10*6/uL Normal 3.90-5.60 [facility] Comment on above: Order Comment: Reaso n for Exam Type 2 diabetes mellitus with other specified complication Performed By: #### C BC, FE and TIBC, LIPID, B12, [id number], TSH3 wRFLX, CMP, PSAS #### [address] WBC (Bld) [#/Vol] 7.5 10*3/uL Normal 4.1-10.5 [facility] Comment on above: Order Comment: Reaso n for Exam Type 2 diabetes mellitus with other specified complication Performed By: #### C BC, FE and TIBC, LIPID, B12, [id number], TSH3 wRFLX, CMP, PSAS #### [address] Comprehensive Metabolic Pane yumi 07-16-2023 Albumin [Mass/Vol] 4.3 g/dL Normal 3.5-5.7 [facility] Comment on above: Order Comment: Reaso n for Exam Type 2 diabetes mellitus with other specified complication Performed By: #### L DLD, TSH3 wRFLX, CMP, LIPID, CBC #### [facility] [address] Albumin/Globulin [Mass ratio] 1.7 {ratio} Normal [facility] Comment on above: Order Comment: Reaso n for Exam Type 2 diabetes mellitus with other specified complication Performed By: #### L DLD, TSH3 wRFLX, CMP, LIPID, CBC #### [facility] [address] ALP [Catalytic activity/Vol] 78 U/L Normal 34-104 [facility] Comment on above: Order Comment: Reaso n for Exam Type 2 diabetes mellitus with other specified complication Performed By: #### L DLD, TSH3 wRFLX, CMP, LIPID, CBC #### [facility] [address] [place] [address] ALT [Catalytic activity/Vol] 26 U/L Normal 7-52 [facility] Comment on above: Order Comment: Reaso n for Exam Type 2 diabetes mellitus with other specified complication Performed By: #### L DLD, TSH3 wRFLX, CMP, LIPID, CBC #### [facility] [address] [place] [address] Anion gap [Moles/Vol] 9.8 mmol/L Normal 6.0-15.0 [facility] Comment on above: Order Comment: Reaso n for Exam Type 2 diabetes mellitus with other specified complication Performed By: #### L DLD, TSH3 wRFLX, CMP, LIPID, CBC #### [facility] [address] [place] [address] AST [Catalytic activity/Vol] 22 U/L Normal 13-39 [facility] Comment on above: Order Comment: Reaso n for Exam Type 2 diabetes mellitus with other specified complication Performed By: #### L DLD, TSH3 wRFLX, CMP, LIPID, CBC #### [facility] [address] [place] [address] Bilirubin [Mass/Vol] 0.4 mg/dL Normal 0.3-1.[address] [facility] Comment on above: Order Comment: Reaso n for Exam Type 2 diabetes mellitus with other specified complication Performed By: #### L DLD, TSH3 wRFLX, CMP, LIPID, CBC #### [facility] [address] Calcium [Mass/Vol] 9.4 mg/dL Normal 8.6-10.3 [facility] Comment on above: Order Comment: Reaso n for Exam Type 2 diabetes mellitus with other specified complication Performed By: #### L DLD, TSH3 wRFLX, CMP, LIPID, CBC #### [facility] [address] Chloride [Moles/Vol] 105 mmol/L Normal 98-[address] [facility] Comment on above: Order Comment: Reaso n for Exam Type 2 diabetes mellitus with other specified complication Performed By: #### L DLD, TSH3 wRFLX, CMP, LIPID, CBC #### [facility] [address] [place] [address] CO2 [Moles/Vol] 29.4 mmol/L Normal 21.0-31.0 [facility] Comment on above: Order Comment: Reaso n for Exam Type 2 diabetes mellitus with other specified complication Performed By: #### L DLD, TSH3 wRFLX, CMP, LIPID, CBC #### [facility] [address] [place] [address] Creatinine [Mass/Vol] 1.05 mg/dL Normal 0.70-1.30 [facility] Comment on above: Order Comment: Reaso n for Exam Type 2 diabetes mellitus with other specified complication Performed By: #### L DLD, TSH3 wRFLX, CMP, LIPID, CBC #### [facility] [address] [place] [address] GFR/1.73 sq M.predicted MDRD (S/P/Bld) [Vol rate/Area] mL/min/{1.73_m2} [facility] Comment on above: Order Comment: Reaso n for Exam Type 2 diabetes mellitus with other specified complication Performed By: #### L DLD, TSH3 wRFLX, CMP, LIPID, CBC #### [facility] [address] [place] [address] Globulin (S) [Mass/Vol] 2.5 g/dL Normal [facility] Comment on above: Order Comment: Reaso n for Exam Type 2 diabetes mellitus with other specified complication Performed By: #### L DLD, TSH3 wRFLX, CMP, LIPID, CBC #### [facility] [address] [place] [id number] [facility] Glucose [Mass/Vol] 91 mg/dL Normal 70-100 [facility] Comment on above: Order Comment: Reaso n for Exam Type 2 diabetes mellitus with other specified complication Result Comment: [facility] Glucose Reference Range is dependent on time and content of last meal. Glucose of more than 200 mg/dL in a nonstressed, ambulatory subject supports the diagnosis of Diabetes Mellitus. ADA recommended reference range Performed By: #### L DLD, TSH3 wRFLX, CMP, LIPID, CBC #### [facility] [address] [place] [address] Potassium [Moles/Vol] 4.2 mmol/L Normal 3.5-5.1 [facility] Comment on above: Order Comment: Reaso n for Exam Type 2 diabetes mellitus with other specified complication Performed By: #### L DLD, TSH3 wRFLX, CMP, LIPID, CBC #### [facility] [address] [place] [address] [place] Protein [Mass/Vol] 6.8 g/dL Normal 6.4-8.9 [facility] Comment on above: Order Comment: Reaso n for Exam Type 2 diabetes mellitus with other specified complication Performed By: #### L DLD, TSH3 wRFLX, CMP, LIPID, CBC #### [facility] [address] [place] [id number] [place] Sodium [Moles/Vol] 140 mmol/L Normal 136-145 [facility] Comment on above: Order Comment: Reaso n for Exam Type 2 diabetes mellitus with other specified complication Performed By: #### L DLD, TSH3 wRFLX, CMP, LIPID, CBC #### [facility] [address] [place] [id number] [place] Urea nitrogen [Mass/Vol] 19 mg/dL Normal 7-25 [facility] Comment on above: Order Comment: Reaso n for Exam Type 2 diabetes mellitus with other specified complication Performed By: #### L DLD, TSH3 wRFLX, CMP, LIPID, CBC #### [facility] [address] Iron and TIBC Profileon % Iron Saturation 26.9 % Normal 20-50 [facility] Comment on above: Order Comment: Reaso n for Exam Type 2 diabetes mellitus with other specified complication Performed By: #### L DLD, TSH3 wRFLX, CMP, LIPID, CBC #### [facility] [address] Iron [Mass/Vol] 97 ug/dL Normal 50-212 [facility] Comment on above: Order Comment: Reaso n for Exam Type 2 diabetes mellitus with other specified complication Performed By: #### L DLD, TSH3 wRFLX, CMP, LIPID, CBC #### [facility] [address] [place] [address] Total Iron Binding Capacity 361 ug/dL Normal 255-450 [facility] Comment on above: Order Comment: Reaso n for Exam Type 2 diabetes mellitus with other specified complication Performed By: #### L DLD, TSH3 wRFLX, CMP, LIPID, CBC #### [facility] [address] [place], [place] [id number] [facility] Transferrin [Mass/Vol] 258 mg/dL Normal 203-362 [facility] Comment on above: Order Comment: Reaso n for Exam Type 2 diabetes mellitus with other specified complication Performed By: #### L DLD, TSH3 wRFLX, CMP, LIPID, CBC #### [facility] [address] [place], [place] [id number] [facility] Lipid Panelon 07-16-2023 Cholesterol [Mass/Vol] 186 mg/dL Normal 140-200 [facility] Comment on above: Order Comment: Reaso n for Exam Type 2 diabetes mellitus with other specified complication Result Comment: Chol less than 200 mg/dl low risk Chol 201-239 mg/dl borderline risk Chol 240 mg/dl and greater high risk Performed By: #### L DLD, TSH3 wRFLX, CMP, LIPID, CBC #### [facility] [address] [place] [address] [place] Cholesterol in HDL [Mass/Vol] 44 mg/dL Normal 23-92 [facility] Comment on above: Order Comment: Reaso n for Exam Type 2 diabetes mellitus with other specified complication Result Comment: HDL CHOL ATP-III CLASSIFICATION Cardiovascular Risk HDL > or equal to 60 mg/dL LOW HDL < 40 mg/dL HIGH Performed By: #### L DLD, TSH3 wRFLX, CMP, LIPID, CBC #### [facility] [address] Cholesterol.total/Chol esterol in HDL [Mass ratio] 4.2 {ratio} Normal <5.0 [facility] Comment on above: Order Comment: Reaso n for Exam Type 2 diabetes mellitus with other specified complication Performed By: #### L DLD, TSH3 wRFLX, CMP, LIPID, CBC #### [facility] [address] LDL Cholesterol,Calculated 105 mg/dL High 0-100 [facility] Comment on above: Order Comment: [...] DLD, TSH3 wRFLX, CMP, LIPID, CBC #### [facility] [address] Triglyceride w/Reflex 187 mg/dL High 0-149 [facility] Comment on above: Order Comment: [...] DLD, TSH3 wRFLX, CMP, LIPID, CBC #### [facility] [address] VLDL CHOLESTEROL 37 mg/dL Normal [facility] Comment on above: Order Comment: Reaso n for Exam Type 2 diabetes mellitus with other specified complication Performed By: #### L DLD, TSH3 wRFLX, CMP, LIPID, CBC #### [facility] [address] [place] [address] PSA Screen (Yearly Only)on 0 07-16-2023 PSA Screen (Yearly Only) 0.430 ng/mL Normal 0.000-4.000 [facility] Comment on above: Order Comment: Reaso n for Exam Type 2 diabetes mellitus with other specified complication Result Comment: Seri al tumor marker results determined by assays using different manufacturers or methods may not be comparable. [facility] Laboratory plastic surgery coordinator and method: GOSO DXI, CHEMILUMINESCENT IMMUNOASSAY. PERFORMED BY: [place] [address] PATHOLOGIST MAIL COURIER ALYSSA MOSQUEDA M.D. Performed By: #### L DLD, TSH3 wRFLX, CMP, LIPID, CBC #### [facility] [address] [place] [address] Thyroid Stim Hormone w/Rflxo n 07-16-2023 Thyroid Stim Hormone w/Rflx 1.41 u[iU]/mL Normal 0.45-5.33 [facility] Comment on above: Order Comment: Reaso n for Exam Type 2 diabetes mellitus with other specified complication Performed By: #### L DLD, TSH3 wRFLX, CMP, LIPID, CBC #### [facility] [address] [place] [address] Vitamin B12on 07-16-2023 Cobalamin (Vitamin B12) [Mass/Vol] 702 pg/mL Normal 180-914 [facility] Comment on above: Order Comment: Reaso n for Exam Type 2 diabetes mellitus with other specified complication Performed By: #### L DLD, TSH3 wRFLX, CMP, LIPID, CBC #### [facility] [address] [place] [address] Vitamin D 25 Hydroxy Totalon 07-16-2023 Vitamin D 25 Hydroxy Total 14.0 ng/mL Low 30-100 [facility] Comment on above: Order Comment: [...] practice guideline. JCEM. 2010; 96(7):1911-30. PERFORMED BY: [facility] [address] [place] [address] PATHOLOGIST MAIL COURIER ALYSSA MOSQUEDA M.D. Performed By: #### L DLD, TSH3 wRFLX, CMP, LIPID, CBC #### [facility] [address] Alanine aminotransferase [En zymatic activity/volume] in Serum or PlasmaOrdered By: Lynn Botello on 04-25-2023 ALT [Catalytic activity/Vol] 27 U/L 7-52 [facility] Albumin [Mass/volume] in Ser um or Plasma by Bromocresol green (BCG) dye binding methoOrdered By: Lynn Botello on 04-25-2023 Albumin BCG dye [Mass/Vol] 4.2 g/dL 3.5-5.7 [facility] Alkaline phosphatase [Enzyma tic activity/volume] in Serum or PlasmaOrdered By: Lynn Botello on 04-25-2023 ALP [Catalytic activity/Vol] 91 U/L 34-104 [facility] Aspartate aminotransferase [ Enzymatic activity/volume] in Serum or PlasmaOrdered By: Lynn Botello on 04-25-2023 AST [Catalytic activity/Vol] 18 U/L 13-39 [facility] Basophils Auto (Bld) [#/Vol] Ordered By: Lynn Botello on 04-25-2023 Basophils (Bld) [#/Vol] 0.1 10*3/uL 0.0-0.2 [facility] Basophils/100 WBC Auto (Bld) Ordered By: Lynn Botello on 04-25-2023 Basophils/100 WBC (Bld) 0.7 % . [facility] Bilirubin.total [Mass/volume ] in Serum or PlasmaOrdered By: Lynn Botello on 04-25-2023 Bilirubin [Mass/Vol] 0.4 mg/dL 0.3-1.[address] [facility] Calcium [Mass/volume] in Ser um or PlasmaOrdered By: Lynn Botello on 04-25-2023 Calcium [Mass/Vol] 9.4 mg/dL 8.6-10.3 [facility] Carbon dioxide, total [Moles /volume] in Serum or PlasmaOrdered By: Lynn Botello on 04-25-2023 CO2 [Moles/Vol] 31.1 mmol/L 21.0-31.0 [facility] Chloride [Moles/volume] in S manohar or PlasmaOrdered By: Lynn Botello on 04-25-2023 Chloride [Moles/Vol] 96 mmol/L 98-[address] [facility] Cholesterol [Mass/volume] in Serum or PlasmaOrdered By: Lynn Botello on 04-25-2023 Cholesterol [Mass/Vol] 190 mg/dL 140-200 [facility] Comment on above: Chol less than 200 m g/dl low riskChol 201-239 mg/dl borderline riskChol 240 mg/dl and greater high risk Cholesterol in LDL Calc [Mas s/Vol]Ordered By: Lynn Botello on 04-25-2023 Cholesterol in LDL [Mass/Vol] TNP [facility] Comment on above: Test not performed Cholesterol in LDL [Mass/vol ume] in Serum or PlasmaOrdered By: Lynn Botello on 04-25-2023 Cholesterol in LDL [Mass/Vol] 90 mg/dL 0-100 [facility] Comment on above: LDL ATP III CLASSIFI CATIONLDL less than 100 mg/dL OptimalLDL 100-129 mg/dL Near or above optimalLDL 130-159 mg/dL Borderline highLDL 160-189 mg/dL HighLDL greater than 189 mg/dL Very high Cholesterol in VLDL Calc [Ma ss/Vol]Ordered By: Lynn Botello on 04-25-2023 Cholesterol in VLDL [Mass/Vol] 129 mg/dL [facility] Complete Blood Count Auto Di ffon 04-25-2023 Basophils (Bld) [#/Vol] 0.1 10*3/uL Normal 0.0-0.2 [facility] Comment on above: Order Comment: Reaso n for Exam Type 2 diabetes mellitus with other specified complication Result Comment: PERF ORMED BY: [place] [address] PATHOLOGIST MAIL COURIER ALYSSA MOSQUEDA M.D. Performed By: #### L DLD, TSH3 wRFLX, CMP, LIPID, CBC #### [facility] [address] [place] [address] Basophils/100 WBC (Bld) 0.7 % Normal . [facility] Comment on above: Order Comment: Reaso n for Exam Type 2 diabetes mellitus with other specified complication Performed By: #### L DLD, TSH3 wRFLX, CMP, LIPID, CBC #### [address] Eosinophils (Bld) [#/Vol] 0.2 10*3/uL Normal 0.0-0.45 [facility] Comment on above: Order Comment: Reaso n for Exam Type 2 diabetes mellitus with other specified complication Performed By: #### L DLD, TSH3 wRFLX, CMP, LIPID, CBC #### [facility] [address] [place] [address] Eosinophils/100 WBC (Bld) 2.3 % Normal . [facility] Comment on above: Order Comment: Reaso n for Exam Type 2 diabetes mellitus with other specified complication Performed By: #### L DLD, TSH3 wRFLX, CMP, LIPID, CBC #### [facility] [address] [place] [address] Erythrocyte distribution width (RBC) [Ratio] 13.3 % Normal 12.0-14.8 [facility] Comment on above: Order Comment: Reaso n for Exam Type 2 diabetes mellitus with other specified complication Performed By: #### L DLD, TSH3 wRFLX, CMP, LIPID, CBC #### [facility] [address] [place] [address] Hematocrit (Bld) [Volume fraction] 48.0 % Normal 38.8-50.0 [facility] Comment on above: Order Comment: Reaso n for Exam Type 2 diabetes mellitus with other specified complication Performed By: #### L DLD, TSH3 wRFLX, CMP, LIPID, CBC #### [address] Hemoglobin (Bld) [Mass/Vol] 16.7 g/dL Normal 13.0-17.0 [facility] Comment on above: Order Comment: Reaso n for Exam Type 2 diabetes mellitus with other specified complication Performed By: #### L DLD, TSH3 wRFLX, CMP, LIPID, CBC #### [address] Lymphocytes (Bld) [#/Vol] 2.2 10*3/uL Normal 1.00-4.8 [facility] Comment on above: Order Comment: Reaso n for Exam Type 2 diabetes mellitus with other specified complication Performed By: #### L DLD, TSH3 wRFLX, CMP, LIPID, CBC #### [address] Lymphocytes/100 WBC (Bld) 28.9 % Normal . [facility] Comment on above: Order Comment: Reaso n for Exam Type 2 diabetes mellitus with other specified complication Performed By: #### L DLD, TSH3 wRFLX, CMP, LIPID, CBC #### [address] MCH (RBC) [Entitic mass] 30.5 pg Normal 27.5-35.2 [facility] Comment on above: Order Comment: Reaso n for Exam Type 2 diabetes mellitus with other specified complication Performed By: #### L DLD, TSH3 wRFLX, CMP, LIPID, CBC #### [address] MCV (RBC) [Entitic vol] 87.8 fL Normal 83.5-101 [facility] Comment on above: Order Comment: Reaso n for Exam Type 2 diabetes mellitus with other specified complication Performed By: #### L DLD, TSH3 wRFLX, CMP, LIPID, CBC #### [address] Mean Corpuscular HGB Conc 34.7 g/dL Normal 32.5-35.6 [facility] Comment on above: Order Comment: Reaso n for Exam Type 2 diabetes mellitus with other specified complication Performed By: #### L DLD, TSH3 wRFLX, CMP, LIPID, CBC #### [facility] [address] [place] [address] [place] Monocytes (Bld) [#/Vol] 0.6 10*3/uL Normal 0.0-0.8 [facility] Comment on above: Order Comment: Reaso n for Exam Type 2 diabetes mellitus with other specified complication Performed By: #### L DLD, TSH3 wRFLX, CMP, LIPID, CBC #### [facility] [address] [place] [address] [place] Monocytes/100 WBC (Bld) 8.3 % Normal . [facility] Comment on above: Order Comment: Reaso n for Exam Type 2 diabetes mellitus with other specified complication Performed By: #### L DLD, TSH3 wRFLX, CMP, LIPID, CBC #### [facility] [address] [place] [address] [place] Neutrophils (Bld) [#/Vol] 4.5 10*3/uL Normal 1.8-7.7 [facility] Comment on above: Order Comment: Reaso n for Exam Type 2 diabetes mellitus with other specified complication Performed By: #### L DLD, TSH3 wRFLX, CMP, LIPID, CBC #### [facility] [address] [place] [address] Neutrophils/100 WBC (Bld) 59.8 % Normal . [facility] Comment on above: Order Comment: Reaso n for Exam Type 2 diabetes mellitus with other specified complication Performed By: #### L DLD, TSH3 wRFLX, CMP, LIPID, CBC #### [facility] [address] [place] [address] [place] NRBC% 0.1 /100{WBC} Normal 0-0.5 [facility] Comment on above: Order Comment: Reaso n for Exam Type 2 diabetes mellitus with other specified complication Performed By: #### L DLD, TSH3 wRFLX, CMP, LIPID, CBC #### [facility] [address] [place] [address] [place] Platelet mean volume (Bld) [Entitic vol] 8.6 fL Normal 6.6-10.1 [facility] Comment on above: Order Comment: Reaso n for Exam Type 2 diabetes mellitus with other specified complication Performed By: #### L DLD, TSH3 wRFLX, CMP, LIPID, CBC #### [facility] [address] [place] [address] [facility] Platelets (Bld) [#/Vol] 172 10*3/uL Normal 150-450 [facility] Comment on above: Order Comment: Reaso n for Exam Type 2 diabetes mellitus with other specified complication Performed By: #### L DLD, TSH3 wRFLX, CMP, LIPID, CBC #### [facility] [address] RBC (Bld) [#/Vol] 5.46 10*6/uL Normal 3.90-5.60 [facility] Comment on above: Order Comment: Reaso n for Exam Type 2 diabetes mellitus with other specified complication Performed By: #### L DLD, TSH3 wRFLX, CMP, LIPID, CBC #### [facility] [address] WBC (Bld) [#/Vol] 7.5 10*3/uL Normal 4.1-10.5 [facility] Comment on above: Order Comment: Reaso n for Exam Type 2 diabetes mellitus with other specified complication Performed By: #### L DLD, TSH3 wRFLX, CMP, LIPID, CBC #### [facility] [address] Comprehensive Metabolic Pane yumi 04-25-2023 Albumin [Mass/Vol] 4.2 g/dL Normal 3.5-5.7 [facility] Comment on above: Order Comment: Reaso n for Exam Type 2 diabetes mellitus with other specified complication Performed By: #### L DLD, TSH3 wRFLX, CMP, LIPID, CBC #### [facility] [address] [place] [id number] [facility] Albumin/Globulin [Mass ratio] 1.7 {ratio} Normal [facility] Comment on above: Order Comment: Reaso n for Exam Type 2 diabetes mellitus with other specified complication Performed By: #### L DLD, TSH3 wRFLX, CMP, LIPID, CBC #### [facility] [address] ALP [Catalytic activity/Vol] 91 U/L Normal 34-104 [facility] Comment on above: Order Comment: Reaso n for Exam Type 2 diabetes mellitus with other specified complication Performed By: #### L DLD, TSH3 wRFLX, CMP, LIPID, CBC #### [facility] [address] ALT [Catalytic activity/Vol] 27 U/L Normal 7-52 [facility] Comment on above: Order Comment: Reaso n for Exam Type 2 diabetes mellitus with other specified complication Performed By: #### L DLD, TSH3 wRFLX, CMP, LIPID, CBC #### [facility] [address] [place] [address] Anion gap [Moles/Vol] 10.2 mmol/L Normal 6.0-15.0 [facility] Comment on above: Order Comment: Reaso n for Exam Type 2 diabetes mellitus with other specified complication Performed By: #### L DLD, TSH3 wRFLX, CMP, LIPID, CBC #### [facility] [address] [place] [address] [place] AST [Catalytic activity/Vol] 18 U/L Normal 13-39 [facility] Comment on above: Order Comment: Reaso n for Exam Type 2 diabetes mellitus with other specified complication Performed By: #### L DLD, TSH3 wRFLX, CMP, LIPID, CBC #### [facility] [address] [place] [address] [place] Bilirubin [Mass/Vol] 0.4 mg/dL Normal 0.3-1.[address] [facility] Comment on above: Order Comment: Reaso n for Exam Type 2 diabetes mellitus with other specified complication Performed By: #### L DLD, TSH3 wRFLX, CMP, LIPID, CBC #### [facility] [address] [place] [address] Calcium [Mass/Vol] 9.4 mg/dL Normal 8.6-10.3 [facility] Comment on above: Order Comment: Reaso n for Exam Type 2 diabetes mellitus with other specified complication Performed By: #### L DLD, TSH3 wRFLX, CMP, LIPID, CBC #### [facility] [address] [place] [address] Chloride [Moles/Vol] 96 mmol/L Low 98-[address] [facility] Comment on above: Order Comment: Reaso n for Exam Type 2 diabetes mellitus with other specified complication Performed By: #### L DLD, TSH3 wRFLX, CMP, LIPID, CBC #### [facility] [address] [place] [address] CO2 [Moles/Vol] 31.1 mmol/L High 21.0-31.0 [facility] Comment on above: Order Comment: Reaso n for Exam Type 2 diabetes mellitus with other specified complication Performed By: #### L DLD, TSH3 wRFLX, CMP, LIPID, CBC #### [facility] [address] [place] [address] Creatinine [Mass/Vol] 1.37 mg/dL High 0.70-1.30 [facility] Comment on above: Order Comment: Reaso n for Exam Type 2 diabetes mellitus with other specified complication Performed By: #### L DLD, TSH3 wRFLX, CMP, LIPID, CBC #### [facility] [address] [place] [address] GFR/1.73 sq M.predicted MDRD (S/P/Bld) [Vol rate/Area] mL/min/{1.73_m2} [facility] Comment on above: Order Comment: Reaso n for Exam Type 2 diabetes mellitus with other specified complication Performed By: #### L DLD, TSH3 wRFLX, CMP, LIPID, CBC #### [facility] [address] [place] [address] Globulin (S) [Mass/Vol] 2.5 g/dL [facility] Comment on above: Order Comment: Reaso n for Exam Type 2 diabetes mellitus with other specified complication Performed By: #### L DLD, TSH3 wRFLX, CMP, LIPID, CBC #### [facility] [address] [place] [address] Glucose [Mass/Vol] 447 mg/dL High 70-100 [facility] Comment on above: Order Comment: Reaso n for Exam Type 2 diabetes mellitus with other specified complication Result Comment: [facility] Glucose Reference Range is dependent on time and content of last meal. Glucose of more than 200 mg/dL in a nonstressed, ambulatory subject supports the diagnosis of Diabetes Mellitus. ADA recommended reference range Performed By: #### L DLD, TSH3 wRFLX, CMP, LIPID, CBC #### [facility] [address] [place] [id number] [facility] Potassium [Moles/Vol] 4.3 mmol/L Normal 3.5-5.1 [facility] Comment on above: Order Comment: Reaso n for Exam Type 2 diabetes mellitus with other specified complication Performed By: #### L DLD, TSH3 wRFLX, CMP, LIPID, CBC #### [facility] [address] Protein [Mass/Vol] 6.7 g/dL Normal 6.4-8.9 [facility] Comment on above: Order Comment: Reaso n for Exam Type 2 diabetes mellitus with other specified complication Performed By: #### L DLD, TSH3 wRFLX, CMP, LIPID, CBC #### [facility] [address] [place] [id number] [place] Sodium [Moles/Vol] 133 mmol/L Low 136-145 [facility] Comment on above: Order Comment: Reaso n for Exam Type 2 diabetes mellitus with other specified complication Performed By: #### L DLD, TSH3 wRFLX, CMP, LIPID, CBC #### [facility] [address] [place] [id number] [place] Urea nitrogen [Mass/Vol] 22 mg/dL Normal 7-25 [facility] Comment on above: Order Comment: Reaso n for Exam Type 2 diabetes mellitus with other specified complication Performed By: #### L DLD, TSH3 wRFLX, CMP, LIPID, CBC #### [facility] [address] [place] [id number] [place] Creatinine [Mass/volume] in Serum or PlasmaOrdered By: Lynn Botello on 04-25-2023 Creatinine [Mass/Vol] 1.37 mg/dL 0.70-1.30 [facility] Eosinophils Auto (Bld) [#/Vo l]Ordered By: Lynn Botello on 04-25-2023 Eosinophils (Bld) [#/Vol] 0.2 10*3/uL 0.0-0.45 [facility] Eosinophils/100 WBC Auto (Bl d)Ordered By: Lynn Botello on 04-25-2023 Eosinophils/100 WBC (Bld) 2.3 % . [facility] Erythrocyte distribution wid th Auto (RBC) [Ratio]Ordered By: Lynn Botello on 04-25-2023 Erythrocyte distribution width (RBC) [Ratio] 13.3 % 12.0-14.8 [facility] Globulin Calc (S) [Mass/Vol] Ordered By: Lynn Botello on 04-25-2023 Globulin (S) [Mass/Vol] 2.5 g/dL [facility] Glucose [Mass/volume] in Ser um or PlasmaOrdered By: Lynn Botello on 04-25-2023 Glucose [Mass/Vol] 447 mg/dL 70-100 [facility] Comment on above: ADA recommended refe rence rangeRandom Glucose Reference Range is dependent on time and content of last meal. Glucose of more than 200 mg/dL in a nonstressed, ambulatory subject supports the diagnosis of Diabetes Mellitus. Hematocrit Auto (Bld) [Volum e fraction]Ordered By: Lynn Botello on 04-25-2023 Hematocrit (Bld) [Volume fraction] 48.0 % 38.8-50.0 [facility] Hemoglobin [Mass/volume] in BloodOrdered By: Lynn Boetllo on 04-25-2023 Hemoglobin (Bld) [Mass/Vol] 16.7 g/dL 13.0-17.0 [facility] LDL Cholesterol Measuredon 1 06-26-2022 LDL Cholesterol Measured 90 mg/dL Normal 0-100 [facility] Comment on above: Order Comment: [...] DLD, TSH3 wRFLX, CMP, LIPID, CBC #### [facility] [address] [place] [id number] [facility] Leukocytes [#/volume] correc janelle for nucleated erythrocytes in Blood by Automated counOrdered By: Lynn Botello on 04-25-2023 WBC corrected for nucl RBC Auto (Bld) [#/Vol] 7.5 10*3/uL 4.1-10.5 [facility] Lipid Panelon 04-25-2023 Cholesterol [Mass/Vol] 190 mg/dL Normal 140-200 [facility] Comment on above: Order Comment: Reaso n for Exam Type 2 diabetes mellitus with other specified complication Result Comment: Chol less than 200 mg/dl low risk Chol 201-239 mg/dl borderline risk Chol 240 mg/dl and greater high risk Performed By: #### L DLD, TSH3 wRFLX, CMP, LIPID, CBC #### [facility] [address] Cholesterol in HDL [Mass/Vol] 35 mg/dL Normal 23-92 [facility] Comment on above: Order Comment: Reaso n for Exam Type 2 diabetes mellitus with other specified complication Result Comment: HDL CHOL ATP-III CLASSIFICATION Cardiovascular Risk HDL > or equal to 60 mg/dL LOW HDL < 40 mg/dL HIGH Performed By: #### L DLD, TSH3 wRFLX, CMP, LIPID, CBC #### [facility] [address] Cholesterol.total/Chol esterol in HDL [Mass ratio] 5.4 {ratio} Normal <5.0 [facility] Comment on above: Order Comment: Reaso n for Exam Type 2 diabetes mellitus with other specified complication Performed By: #### L DLD, TSH3 wRFLX, CMP, LIPID, CBC #### [facility] [address] [place] [id number] [facility] LDL Cholesterol,Calculated Not performed Normal 0-100 [facility] Comment on above: Order Comment: Reaso n for Exam Type 2 diabetes mellitus with other specified complication Performed By: #### L DLD, TSH3 wRFLX, CMP, LIPID, CBC #### [facility] [address] Triglyceride w/Reflex 646 mg/dL High 0-149 [facility] Comment on above: Order Comment: [...] DLD, TSH3 wRFLX, CMP, LIPID, CBC #### [facility] [address] VLDL CHOLESTEROL 129 mg/dL Normal [facility] Comment on above: Order Comment: Reaso n for Exam Type 2 diabetes mellitus with other specified complication Performed By: #### L DLD, TSH3 wRFLX, CMP, LIPID, CBC #### [facility] [address] [place] [id number] [facility] Lymphocytes Auto (Bld) [#/Vo l]Ordered By: Lynn Botello on 04-25-2023 Lymphocytes (Bld) [#/Vol] 2.2 10*3/uL 1.00-4.8 [facility] Lymphocytes/100 WBC Auto (Bl d)Ordered By: Lynn Botello on 04-25-2023 Lymphocytes/100 WBC (Bld) 28.9 % . [facility] MCH Auto (RBC) [Entitic mass ]Ordered By: Lynn Botello on 04-25-2023 MCH (RBC) [Entitic mass] 30.5 pg 27.5-35.2 [facility] MCHC Auto (RBC) [Mass/Vol]Or dered By: Lynn Botello on 04-25-2023 MCHC (RBC) [Mass/Vol] 34.7 g/dL 32.5-35.6 [facility] MCV Auto (RBC) [Entitic vol] Ordered By: Lynn Botello on 04-25-2023 MCV (RBC) [Entitic vol] 87.8 fL 83.5-101 [facility] Monocytes Auto (Bld) [#/Vol] Ordered By: Lynn Botello on 04-25-2023 Monocytes (Bld) [#/Vol] 0.6 10*3/uL 0.0-0.8 [facility] Monocytes/100 WBC Auto (Bld) Ordered By: Lynn Botello on 04-25-2023 Monocytes/100 WBC (Bld) 8.3 % . [facility] Neutrophils Auto (Bld) [#/Vo l]Ordered By: Lynn Botello on 04-25-2023 Neutrophils (Bld) [#/Vol] 4.5 10*3/uL 1.8-7.7 [facility] Neutrophils/100 WBC Auto (Bl d)Ordered By: Lynn Botello on 04-25-2023 Neutrophils/100 WBC (Bld) 59.8 % . [facility] No Panel InformationOrdered By: Lynn Botello on 04-25-2023 Estimated GFR (CKD-EPI) > 60.0 mL/Min [facility] Creatinine Clearance (Chem N/A [facility] Nucleated erythrocytes [Pres ence] in Blood by Automated countOrdered By: Lynn Botello on 04-25-2023 Nucleated RBC Auto Ql (Bld) 0.1 /100{WBC} 0-0.5 [facility] Platelet mean volume Auto (B ld) [Entitic vol]Ordered By: Lynn Botello on 04-25-2023 Platelet mean volume (Bld) [Entitic vol] 8.6 fL 6.6-10.1 [facility] Platelets Auto (Bld) [#/Vol] Ordered By: Lynn Botello on 04-25-2023 Platelets (Bld) [#/Vol] 172 10*3/uL 150-450 [facility] Potassium [Moles/volume] in Serum or PlasmaOrdered By: Lynn Botello on 04-25-2023 Potassium [Moles/Vol] 4.3 mmol/L 3.5-5.1 [facility] Protein [Mass/volume] in Ser um or PlasmaOrdered By: Lynn Botello on 04-25-2023 Protein [Mass/Vol] 6.7 g/dL 6.4-8.9 [facility] RBC Auto (Bld) [#/Vol]Ordere d By: Lynn Botello on 04-25-2023 RBC (Bld) [#/Vol] 5.46 10*6/uL 3.90-5.60 [facility] Serum or plasma albumin/glob ulin mass ratioOrdered By: Lynn Botello on 04-25-2023 Albumin/Globulin [Mass ratio] 1.7 {ratio} [facility] Serum or plasma anion gap de terminationOrdered By: Lynn Botello on 04-25-2023 Anion gap [Moles/Vol] 10.2 mmol/L 6.0-15.0 [facility] Serum or plasma high density lipoprotein (HDL) cholesterol measurementOrdered By: Lynn Botello on 04-25-2023 Cholesterol in HDL [Mass/Vol] 35 mg/dL 23-92 [facility] Comment on above: HDL CHOL ATP-III CLA SSIFICATION Cardiovascular RiskHDL > or equal to 60 mg/dL LOWHDL < 40 mg/dL HIGH Serum or plasma total choles terol/high density lipoprotein (HDL) cholesterol mass ratOrdered By: Lynn Botello on 04-25-2023 Cholesterol.total/Chol esterol in HDL [Mass ratio] 5.4 {ratio} <5.0 [facility] Sodium [Moles/volume] in Ser um or PlasmaOrdered By: Lynn Botello on 04-25-2023 Sodium [Moles/Vol] 133 mmol/L 136-145 [facility] Thyroid Stim Hormone w/Rflxo n 04-25-2023 Thyroid Stim Hormone w/Rflx 1.97 u[iU]/mL Normal 0.45-5.33 [facility] Comment on above: Order Comment: Reaso n for Exam Type 2 diabetes mellitus with other specified complication Result Comment: PERF ORMED BY: [facility] [address] [place] [address] PATHOLOGIST [employer] ALYSSA MOSQUEDA M.D. Performed By: #### L DLD, TSH3 wRFLX, CMP, LIPID, CBC #### [facility] [address] [place] [id number] [facility] Thyrotropin [Units/volume] i n Serum or PlasmaOrdered By: Lynn Botello on 04-25-2023 TSH Qn 1.97 m[IU]/L 0.45-5.33 [facility] Triglyceride [Mass/volume] i n Serum or PlasmaOrdered By: Lynn Botello on 04-25-2023 Triglyceride [Mass/Vol] 646 mg/dL 0-149 [facility] Comment on above: If the triglyceride result is greater than 400, LDLC and related calculations cannot be calculated and resulted.TRIG ATP III CLASSIFICATIONTRIG less than 150 mg/dL NormalTRIG 150-199 mg/dL Borderline highTRIG 200-500 mg/dL High TRIG greater than 500 mg/dL Very highStandard traceable to the Center for Disease Conrtrol and Prevention (CDC) test method. US carotid doppler BIon 04-12 US carotid doppler BI [facility] Main [place] [address] [place] [address] Ultrasound Report Signed Patient: Silverio Barahona MR#: [id number] : 1970 Acct:[id number] Age/Sex: 52 / M ADM Date: 04/25/23 Loc: Room: Type: [facility] Attending Dr: Lynn GARCIA Ordering Provider: JOSE Hillman Date of Service: 04/25/23 US/US carotid doppler BI: Left carotid stenosis Copies to: JOSE Hillman CAROTID DUPLEX INDICATION: Surveillance study for left carotid stenoses and [place] syndrome. PROCEDURE: Color-flow duplex scanning is used [...] Cyrus Carrillo MD04/25/2023 3:20 PM Dictation Location: [place] [address] Tech: Melany Beauchamp Transcribed By: [facility] 04/25/23 1520 Dictated By: Cyrus Carrillo MD 04/25/23 1519 Signed By: 04/25/23 1520 Normal [facility] Urea nitrogen [Mass/volume] in Serum or PlasmaOrdered By: Lynn Botello on 04-25-2023 Urea nitrogen [Mass/Vol] 22 mg/dL 725 [facility] WBC Auto (Bld) [#/Vol]Ordere d By: Lynn Botello on 04-25-2023 WBC (Bld) [#/Vol] 7.5 10*3/uL 4.1-10.5 [facility] STR cardiac stress/regularon 01-24-2023 STR cardiac stress/regular [facility] Main [address] [address] Cardiac Stress Test Signed Patient: Silverio Barahona MR#: [id number] : 1970 Acct:[id number] Age/Sex: 52 / M ADM Date: 01/24/23 Loc: Room: Type: [facility] Attending Dr: Lynn GARCIA Copies to: Reagan Perkins MD, [facility] JOSE Hillman Ordering Provider: JOSE Hillman Date [...] FAC 01/24/23 1624 Signed By: 01/25/23 0928 [facility] echo transthoracicon ECH echo transthoracic [facility] Main [place] [address] [place] [address] Echocardiogram Signed Patient: Silverio Barahona MR#: [id number] : 1970 Acct:[id number] Age/Sex: 52 / M ADM Date: 12/31/22 Loc: Room: Type: [facility] Attending Dr: Lynn GARCIA Ordering Provider: JOSE Hillman Date of Service: 12/31/22 [facility] echo transthoracic: Other chest pain Copies to: [...] 12/31/22 1017 Signed By: Reagan Perkins MD, [facility] 12/31/22 1055 Normal [facility] Albumin [Mass/volume] in Ser um or PlasmaOrdered By: Lynn Botello on 06-26-2022 Albumin [Mass/Vol] 3.9 g/dL 3.2-5.5 [facility] Basophils Auto (Bld) [#/Vol] Ordered By: Lynn Botello on 06-26-2022 Basophils (Bld) [#/Vol] 0.1 10*3/uL 0.0-0.2 [facility] Basophils/100 WBC Auto (Bld) Ordered By: Lynn Botello on 06-26-2022 Basophils/100 WBC (Bld) 0.7 % . [facility] Cholesterol [Mass/volume] in Serum or PlasmaOrdered By: Lynn Botello on 06-26-2022 Cholesterol [Mass/Vol] 184 mg/dL 140-200 [facility] Comment on above: Chol less than 200 m g/dl low riskChol 201-239 mg/dl borderline riskChol 240 mg/dl and greater high risk Cholesterol in LDL Calc [Mas s/Vol]Ordered By: Lynn Botello on 06-26-2022 Cholesterol in LDL [Mass/Vol] 90 mg/dL 0-100 [facility] Comment on above: LDL ATP III CLASSIFI CATIONLDL less than 100 mg/dL OptimalLDL 100-129 mg/dL Near or above optimalLDL 130-159 mg/dL Borderline highLDL 160-189 mg/dL HighLDL greater than 189 mg/dL Very high Cholesterol in VLDL Calc [Ma ss/Vol]Ordered By: Lynn Botello on 06-26-2022 Cholesterol in VLDL [Mass/Vol] 61 mg/dL [facility] Creatinine and Glomerular fi ltration rate.predicted panel (S/P/Bld)Ordered By: Lynn Botello on 06-26-2022 Creatinine [Mass/Vol] 1.11 mg/dL 0.64-1.27 [facility] Eosinophils Auto (Bld) [#/Vo l]Ordered By: Lynn Botello on 06-26-2022 Eosinophils (Bld) [#/Vol] 0.3 10*3/uL 0.0-0.45 [facility] Eosinophils/100 WBC Auto (Bl d)Ordered By: Lynn Botello on 06-26-2022 Eosinophils/100 WBC (Bld) 3.3 % . [facility] Erythrocyte distribution wid th Auto (RBC) [Ratio]Ordered By: Lynn Botello on 06-26-2022 Erythrocyte distribution width (RBC) [Ratio] 13.6 % 12.0-14.8 [facility] Estimated glomerular filtrat ion rate (GFR) non- AmericanOrdered By: Lynn Botello on 06-26-2022 GFR/1.73 sq M.predicted among non-blacks MDRD (S/P/Bld) [Vol rate/Area] > 60 mL/Min [facility] Globulin Calc (S) [Mass/Vol] Ordered By: Lynn Botello on 06-26-2022 Globulin (S) [Mass/Vol] 2.6 g/dL [facility] Hematocrit Auto (Bld) [Volum e fraction]Ordered By: Lynn Botello on 06-26-2022 Hematocrit (Bld) [Volume fraction] 46.6 % 38.8-50.0 [facility] Hemoglobin [Mass/volume] in BloodOrdered By: Lynn Botello on 06-26-2022 Hemoglobin (Bld) [Mass/Vol] 15.5 g/dL 13.0-17.0 [facility] Leukocytes [#/volume] correc janelle for nucleated erythrocytes in Blood by Automated counOrdered By: Lynn Botello on 06-26-2022 WBC corrected for nucl RBC Auto (Bld) [#/Vol] 8.2 10*3/uL 4.1-10.5 [facility] Lymphocytes Auto (Bld) [#/Vo l]Ordered By: Lynn Botello on 06-26-2022 Lymphocytes (Bld) [#/Vol] 2.4 10*3/uL 1.00-4.8 [facility] Lymphocytes/100 WBC Auto (Bl d)Ordered By: Lynn Botello on 06-26-2022 Lymphocytes/100 WBC (Bld) 29.8 % . [facility] MCH Auto (RBC) [Entitic mass ]Ordered By: Lynn Botello on 06-26-2022 MCH (RBC) [Entitic mass] 29.8 pg 27.5-35.2 [facility] MCHC Auto (RBC) [Mass/Vol]Or dered By: Lynn Botello on 06-26-2022 MCHC (RBC) [Mass/Vol] 33.3 g/dL 32.5-35.6 [facility] MCV Auto (RBC) [Entitic vol] Ordered By: Lynn Botello on 06-26-2022 MCV (RBC) [Entitic vol] 89.5 fL 83.5-101 [facility] Monocytes Auto (Bld) [#/Vol] Ordered By: Lynn Botello on 06-26-2022 Monocytes (Bld) [#/Vol] 0.5 10*3/uL 0.0-0.8 [facility] Monocytes/100 WBC Auto (Bld) Ordered By: Lynn Botello on 06-26-2022 Monocytes/100 WBC (Bld) 6.2 % . [facility] Neutrophils Auto (Bld) [#/Vo l]Ordered By: Lynn Botello on 06-26-2022 Neutrophils (Bld) [#/Vol] 4.9 10*3/uL 1.8-7.7 [facility] Neutrophils/100 WBC Auto (Bl d)Ordered By: Lynn Botello on 06-26-2022 Neutrophils/100 WBC (Bld) 60.0 % . [facility] No Panel InformationOrdered By: Lynn Botello on 06-26-2022 Estimated GFR () > 60 mL/Min [facility] Comment on above: GFR estimated refere nce range: According to KDOQI guidelines, <60 ml/min/1.73m2 is sufficient to diagnose a patient with chronic kidney disease. Pharmacy Creatinine Clearance (Chem N/A [facility] Prostate Specific Antigen Screen 0.430 ng/mL 0.000-4.000 [facility] Nucleated erythrocytes [Pres ence] in Blood by Automated countOrdered By: Lynn Botello on 06-26-2022 Nucleated RBC Auto Ql (Bld) 0.1 /100{WBC} 0-0.5 [facility] Platelet mean volume Auto (B ld) [Entitic vol]Ordered By: Lynn Botello on 06-26-2022 Platelet mean volume (Bld) [Entitic vol] 9.4 fL 6.6-10.1 [facility] Platelets Auto (Bld) [#/Vol] Ordered By: Lynn Botello on 06-26-2022 Platelets (Bld) [#/Vol] 133 10*3/uL 150-450 [facility] Protein [Mass/volume] in Ser um or PlasmaOrdered By: Lynn Botello on 06-26-2022 Protein [Mass/Vol] 6.5 g/dL 6.1-7.9 [facility] RBC Auto (Bld) [#/Vol]Ordere d By: Lynn Botlelo on 06-26-2022 RBC (Bld) [#/Vol] 5.21 10*6/uL 3.90-5.60 [facility] Serum or plasma alanine quinn otransferase measurement without P-5'-P (enzymatic activiOrdered By: Lynn Botello on 06-26-2022 ALT No additional P-5'-P [Catalytic activity/Vol] 34 U/L 10-60 [facility] Serum or plasma albumin/glob ulin mass ratioOrdered By: Lynn Botello on 06-26-2022 Albumin/Globulin [Mass ratio] 1.5 {ratio} [facility] Serum or plasma alkaline malik sphatase measurement (enzymatic activity/volume)Ordered By: Lynn Botello on 06-26-2022 ALP [Catalytic activity/Vol] 81 U/L 32-92 [facility] Serum or plasma anion gap de terminationOrdered By: Lynn Botello on 06-26-2022 Anion gap [Moles/Vol] 11.6 mmol/L 6.0-15.0 [facility] Serum or plasma aspartate am inotransferase measurement (enzymatic activity/volume)Ordered By: Lynn Botello on 06-26-2022 AST [Catalytic activity/Vol] 27 U/L 10-42 [facility] Serum or plasma calcium fermín urement (mass/volume)Ordered By: Lynn Botello on 06-26-2022 Calcium [Mass/Vol] 9.1 mg/dL 8.2-10.2 [facility] Serum or plasma chloride jeffy surement (moles/volume)Ordered By: Lynn Botello on 06-26-2022 Chloride [Moles/Vol] 104 mmol/L 95-[address] [facility] Serum or plasma glucose fermín urement (mass/volume)Ordered By: Lynn Botello on 06-26-2022 Glucose [Mass/Vol] 113 mg/dL 70-100 [facility] Comment on above: ADA recommended refe rence rangeRandom Glucose Reference Range is dependent on time and content of last meal. Glucose of more than 200 mg/dL in a nonstressed, ambulatory subject supports the diagnosis of Diabetes Mellitus. Serum or plasma high density lipoprotein (HDL) cholesterol measurementOrdered By: Lynn Botello on 06-26-2022 Cholesterol in HDL [Mass/Vol] 32 mg/dL 29-71 [facility] Comment on above: HDL CHOL ATP-III CLA SSIFICATION Cardiovascular RiskHDL > or equal to 60 mg/dL LOWHDL < 40 mg/dL HIGH Serum or plasma potassium me asurement (moles/volume)Ordered By: Lynn Botello on 06-26-2022 Potassium [Moles/Vol] 4.4 mmol/L 3.5-5.1 [facility] Serum or plasma sodium measu rement (moles/volume)Ordered By: Lynn Botello on 06-26-2022 Sodium [Moles/Vol] 138 mmol/L 136-146 [facility] Serum or plasma total biliru bin measurement (mass/volume)Ordered By: Lynn Botello on 06-26-2022 Bilirubin [Mass/Vol] 0.6 mg/dL 0.3-1.[address] [facility] Serum or plasma total carbon dioxide measurement (moles/volume)Ordered By: Lynn Botello on 06-26-2022 CO2 [Moles/Vol] 26.8 mmol/L 22.0-30.0 [facility] Serum or plasma total choles terol/high density lipoprotein (HDL) cholesterol mass ratOrdered By: Lynn Botello on 06-26-2022 Cholesterol.total/Chol esterol in HDL [Mass ratio] 5.8 {ratio} <5.0 [facility] Serum or plasma urea nitroge n measurement (mass/volume)Ordered By: Lynn Botello on 06-26-2022 Urea nitrogen [Mass/Vol] 19 mg/dL 9-23 [facility] TSH DL <= 0.005 mIU/L QnOrde red By: Lynn Botello on 06-26-2022 TSH Qn 1.79 m[IU]/L 0.45-5.33 [facility] Triglyceride [Mass/volume] i n Serum or PlasmaOrdered By: Lynn Botello on 06-26-2022 Triglyceride [Mass/Vol] 309 mg/dL 35-149 [facility] Comment on above: TRIG ATP III CLASSIF ICATIONTRIG less than 150 mg/dL NormalTRIG 150-199 mg/dL Borderline highTRIG 200-500 mg/dL High TRIG greater than 500 mg/dL Very highStandard traceable to the Center for Disease Conrtrol and Prevention (CDC) test method. WBC Auto (Bld) [#/Vol]Ordere d By: Lynn Botello on 06-26-2022 WBC (Bld) [#/Vol] 8.2 10*3/uL 4.1-10.5 [facility] Albumin [Mass/volume] in Ser um or PlasmaOrdered By: Mara Page on 06-06-2022 Albumin [Mass/Vol] 4.0 g/dL 3.2-5.5 [facility] Basophils Auto (Bld) [#/Vol] Ordered By: Mara Page on 06-06-2022 Basophils (Bld) [#/Vol] 0.0 10*3/uL 0.0-0.2 [facility] Basophils/100 WBC Auto (Bld) Ordered By: Mara Page on 06-06-2022 Basophils/100 WBC (Bld) 0.6 % . [facility] Creatinine and Glomerular fi ltration rate.predicted panel (S/P/Bld)Ordered By: Mara Page on 06-06-2022 Creatinine [Mass/Vol] 1.35 mg/dL 0.64-1.27 [facility] Eosinophils Auto (Bld) [#/Vo l]Ordered By: Mara Page on 06-06-2022 Eosinophils (Bld) [#/Vol] 0.3 10*3/uL 0.0-0.45 [facility] Eosinophils/100 WBC Auto (Bl d)Ordered By: Mara Page on 06-06-2022 Eosinophils/100 WBC (Bld) 3.6 % . [facility] Erythrocyte distribution wid th Auto (RBC) [Ratio]Ordered By: Mara Page on 06-06-2022 Erythrocyte distribution width (RBC) [Ratio] 14.0 % 12.0-14.8 [facility] Estimated glomerular filtrat ion rate (GFR) non- AmericanOrdered By: Mara Page on 06-06-2022 GFR/1.73 sq M.predicted among non-blacks MDRD (S/P/Bld) [Vol rate/Area] 55 mL/Min [facility] Globulin Calc (S) [Mass/Vol] Ordered By: Mara Page on 06-06-2022 Globulin (S) [Mass/Vol] 2.7 g/dL [facility] Hematocrit Auto (Bld) [Volum e fraction]Ordered By: Mara Page on 06-06-2022 Hematocrit (Bld) [Volume fraction] 45.3 % 38.8-50.0 [facility] Hemoglobin [Mass/volume] in BloodOrdered By: Mara Page on 06-06-2022 Hemoglobin (Bld) [Mass/Vol] 15.2 g/dL 13.0-17.0 [facility] Leukocytes [#/volume] correc janelle for nucleated erythrocytes in Blood by Automated counOrdered By: Mara Page on 06-06-2022 WBC corrected for nucl RBC Auto (Bld) [#/Vol] 8.2 10*3/uL 4.1-10.5 [facility] Lymphocytes Auto (Bld) [#/Vo l]Ordered By: Mara Page on 06-06-2022 Lymphocytes (Bld) [#/Vol] 2.6 10*3/uL 1.00-4.8 [facility] Lymphocytes/100 WBC Auto (Bl d)Ordered By: Mara Page on 06-06-2022 Lymphocytes/100 WBC (Bld) 31.4 % . [facility] MCH Auto (RBC) [Entitic mass ]Ordered By: Mara Page on 06-06-2022 MCH (RBC) [Entitic mass] 29.8 pg 27.5-35.2 [facility] MCHC Auto (RBC) [Mass/Vol]Or dered By: Mara Page on 06-06-2022 MCHC (RBC) [Mass/Vol] 33.4 g/dL 32.5-35.6 [facility] MCV Auto (RBC) [Entitic vol] Ordered By: Mara Page on 06-06-2022 MCV (RBC) [Entitic vol] 89.3 fL 83.5-101 [facility] Monocytes Auto (Bld) [#/Vol] Ordered By: Mara Page on 06-06-2022 Monocytes (Bld) [#/Vol] 0.6 10*3/uL 0.0-0.8 [facility] Monocytes/100 WBC Auto (Bld) Ordered By: Mara Page on 06-06-2022 Monocytes/100 WBC (Bld) 7.9 % . [facility] Neutrophils Auto (Bld) [#/Vo l]Ordered By: Mara Page on 06-06-2022 Neutrophils (Bld) [#/Vol] 4.6 10*3/uL 1.8-7.7 [facility] Neutrophils/100 WBC Auto (Bl d)Ordered By: Mara Page on 06-06-2022 Neutrophils/100 WBC (Bld) 56.5 % . [facility] No Panel InformationOrdered By: Mara Page on 06-06-2022 Estimated GFR () > 60 mL/Min [facility] [facility] Comment on above: GFR estimated refere nce range: According to KDOQI guidelines, <60 ml/min/1.73m2 is sufficient to diagnose a patient with chronic kidney disease. Pharmacy Creatinine Clearance (Chem 74.07 [facility] Nucleated erythrocytes [Pres ence] in Blood by Automated countOrdered By: Mara Page on 06-06-2022 Nucleated RBC Auto Ql (Bld) 0.1 /100{WBC} 0-0.5 [facility] Platelet mean volume Auto (B ld) [Entitic vol]Ordered By: Mara Page on 06-06-2022 Platelet mean volume (Bld) [Entitic vol] 8.4 fL 6.6-10.1 [facility] Platelets Auto (Bld) [#/Vol] Ordered By: Mara Page on 06-06-2022 Platelets (Bld) [#/Vol] 174 10*3/uL 150-450 [facility] Protein [Mass/volume] in Ser um or PlasmaOrdered By: Mara Page on 06-06-2022 Protein [Mass/Vol] 6.7 g/dL 6.1-7.9 [facility] RBC Auto (Bld) [#/Vol]Ordere d By: Mara Page on 06-06-2022 RBC (Bld) [#/Vol] 5.08 10*6/uL 3.90-5.60 [facility] Serum or plasma alanine quinn otransferase measurement without P-5'-P (enzymatic activiOrdered By: Mara Page on 06-06-2022 ALT No additional P-5'-P [Catalytic activity/Vol] 40 U/L 10-60 [facility] Serum or plasma albumin/glob ulin mass ratioOrdered By: Mara Page on 06-06-2022 Albumin/Globulin [Mass ratio] 1.5 {ratio} [facility] Serum or plasma alkaline malik sphatase measurement (enzymatic activity/volume)Ordered By: Mara Page on 06-06-2022 ALP [Catalytic activity/Vol] 82 U/L 32-92 [facility] Serum or plasma anion gap de terminationOrdered By: Mara Page on 06-06-2022 Anion gap [Moles/Vol] 14.0 mmol/L 6.0-15.0 [facility] Serum or plasma aspartate am inotransferase measurement (enzymatic activity/volume)Ordered By: Mara Page on 06-06-2022 AST [Catalytic activity/Vol] 36 U/L 10-42 [facility] Serum or plasma calcium fermín urement (mass/volume)Ordered By: Mara Page on 06-06-2022 Calcium [Mass/Vol] 10.0 mg/dL 8.2-10.2 [facility] Serum or plasma carcinoembry onic antigen measurement (mass/volume)Ordered By: Mara Page on 06-06-2022 Carcinoembryonic Ag [Mass/Vol] 4.8 ng/mL 0.0-3.0 [facility] Serum or plasma chloride jeffy surement (moles/volume)Ordered By: Mara Page on 06-06-2022 Chloride [Moles/Vol] 100 mmol/L 95-[address] [facility] Serum or plasma glucose fermín urement (mass/volume)Ordered By: Mara Page on 06-06-2022 Glucose [Mass/Vol] 204 mg/dL 70-100 [facility] Comment on above: ADA recommended refe rence rangeRandom Glucose Reference Range is dependent on time and content of last meal. Glucose of more than 200 mg/dL in a nonstressed, ambulatory subject supports the diagnosis of Diabetes Mellitus. Serum or plasma potassium me asurement (moles/volume)Ordered By: Mara Page on 06-06-2022 Potassium [Moles/Vol] 4.5 mmol/L 3.5-5.1 [facility] Serum or plasma sodium measu rement (moles/volume)Ordered By: Mara Page on 06-06-2022 Sodium [Moles/Vol] 137 mmol/L 136-146 [facility] Serum or plasma total biliru bin measurement (mass/volume)Ordered By: Mara Page on 06-06-2022 Bilirubin [Mass/Vol] 0.6 mg/dL 0.3-1.[address] [facility] Serum or plasma total carbon dioxide measurement (moles/volume)Ordered By: Mara Page on 06-06-2022 CO2 [Moles/Vol] 27.5 mmol/L 22.0-30.0 [facility] Serum or plasma urea nitroge n measurement (mass/volume)Ordered By: Mara Page on 06-06-2022 Urea nitrogen [Mass/Vol] 21 mg/dL 9 [facility] WBC Auto (Bld) [#/Vol]Ordere d By: Mara Page on 06-06-2022 WBC (Bld) [#/Vol] 8.2 10*3/uL 4.1-10.5 [facility] COVID CepheidOrdered By: Ramin Anne on 05-14-2022 SARS-CoV-2 (COVID-19) Ab IA Ql Negative Negative [facility] Comment on above: This is a duplicate [employer] X[employer] Xpress CoV-2/Flu/RSV Plus RNA by RT-PCR result to be used for statistical tracking purpose only. SARS-CoV-2 (COVID-19) RNA JULIETTE+probe Ql (Unsp spec) [facility] Glucose Glucometer (BldC) [M ass/Vol]Ordered By: Devon Damico on 02-28-2022 Glucose [Mass/Vol] 203 mg/dL [facility] Comment on above: Random Glucose Refer ence Range is dependent on time and content of last meal. Glucose of more than 200 mg/dL in a nonstressed, ambulatory subject supports the diagnosis of Diabetes Mellitus. COVID-19 Positive/NegativeOr dered By: Devon Damico on 02-26-2022 SARS-CoV-2 (COVID-19) N gene JULIETTE+probe Ql (Resp) Negative Negative [facility] Comment on above: Testing for SARS-CoV -2 by RT-PCRThis test was developed and its performance characteristics determined by [employer] ([employer] and validated at the [facility]. This test has not been FDA cleared [...] (Urine sed) [#/Area] None seen [HPF] 0-4 [facility] Automated leukocytes count i n urine sediment (number/area)Ordered By: Lynn Botello on 02-14-2022 WBC Auto (Urine sed) [#/Area] None seen [HPF] 0-4 [facility] Basophils Auto (Bld) [#/Vol] Ordered By: Lynn Botello on 02-14-2022 Basophils (Bld) [#/Vol] 0.1 10*3/uL 0.0-0.2 [facility] Basophils/100 WBC Auto (Bld) Ordered By: Lynn Botello on 02-14-2022 Basophils/100 WBC (Bld) 0.6 % . [facility] Bilirubin Test strip Ql (U)O rdered By: Lynn Botello on 02-14-2022 Bilirubin Ql (U) Negative Negative [facility] Blood hemoglobin measurement (mass/volume)Ordered By: Lynn Botello on 02-14-2022 Hemoglobin (Bld) [Mass/Vol] 15.5 g/dL 13.0-17.0 [facility] Blood leukocytes automated c ount (number/volume)Ordered By: Lynn Botello on 02-14-2022 WBC (Bld) [#/Vol] 9.6 10*3/uL 4.5-11.0 [facility] Body fluid albumin measureme nt (mass/volume)Ordered By: Lynn Botello on 02-14-2022 Albumin (Body fld) [Mass/Vol] 4.0 g/dL 3.2-5.5 [facility] Color Auto (U)Ordered By: Shaniqua Botello on 02-14-2022 Color (U) Yellow Yellow [facility] Creatinine and Glomerular fi ltration rate.predicted panel (S/P/Bld)Ordered By: Lynn Botello on 02-14-2022 Creatinine [Mass/Vol] 1.28 mg/dL 0.64-1.27 [facility] Eosinophils Auto (Bld) [#/Vo l]Ordered By: Lynn Botello on 02-14-2022 Eosinophils (Bld) [#/Vol] 0.1 10*3/uL 0.0-0.45 [facility] Eosinophils/100 WBC Auto (Bl d)Ordered By: Lynn Botello on 02-14-2022 Eosinophils/100 WBC (Bld) 1.3 % . [facility] Erythrocyte distribution wid th Auto (RBC) [Ratio]Ordered By: Lynn Botello on 02-14-2022 Erythrocyte distribution width (RBC) [Ratio] 14.0 % 12.0-14.8 [facility] Estimated glomerular filtrat ion rate (GFR) non- AmericanOrdered By: Lynn Botello on 02-14-2022 GFR/1.73 sq M.predicted among non-blacks MDRD (S/P/Bld) [Vol rate/Area] 59 mL/Min [facility] Globulin Calc (S) [Mass/Vol] Ordered By: Lynn Botello on 02-14-2022 Globulin (S) [Mass/Vol] 3.1 g/dL [facility] Hematocrit Auto (Bld) [Volum e fraction]Ordered By: Lynn Botello on 02-14-2022 Hematocrit (Bld) [Volume fraction] 46.3 % 38.8-50.0 [facility] Ketones Auto test strip (U) [Mass/Vol]Ordered By: Lynn Botello on 02-14-2022 Ketones (U) [Mass/Vol] Negative Negative [facility] - Hematology and Cell countsOrdered By: Lynn Botello on 02-14-2022 Nucleated RBC/100 WBC (Bld) [Ratio] 0.1 % 0-0.5 [facility] Laboratory - UrinalysisOrder ed By: Lynn Botello on 02-14-2022 Hyaline casts LM Ql (Urine sed) None seen [LPF] 0-8 [facility] Lymphocytes Auto (Bld) [#/Vo l]Ordered By: Lynn Botello on 02-14-2022 Lymphocytes (Bld) [#/Vol] 2.5 10*3/uL 1.00-4.8 [facility] Lymphocytes/100 WBC Auto (Bl d)Ordered By: Lynn Botello on 02-14-2022 Lymphocytes/100 WBC (Bld) 26.2 % . [facility] MCH Auto (RBC) [Entitic mass ]Ordered By: Lynn Botello on 02-14-2022 MCH (RBC) [Entitic mass] 29.7 pg 27.5-35.2 [facility] MCHC Auto (RBC) [Mass/Vol]Or dered By: Lynn Botello on 02-14-2022 MCHC (RBC) [Mass/Vol] 33.6 g/dL 32.5-35.6 [facility] MCV Auto (RBC) [Entitic vol] Ordered By: Lynn Botello on 02-14-2022 MCV (RBC) [Entitic vol] 88.6 fL 83.5-101 [facility] Monocytes Auto (Bld) [#/Vol] Ordered By: Lynn Botello on 02-14-2022 Monocytes (Bld) [#/Vol] 0.6 10*3/uL 0.0-0.8 [facility] Monocytes/100 WBC Auto (Bld) Ordered By: Lynn Botello on 02-14-2022 Monocytes/100 WBC (Bld) 6.5 % . [facility] Neutrophils Auto (Bld) [#/Vo l]Ordered By: Lynn Botello on 02-14-2022 Neutrophils (Bld) [#/Vol] 6.3 10*3/uL 1.8-7.7 [facility] Neutrophils/100 WBC Auto (Bl d)Ordered By: Lynn Botello on 02-14-2022 Neutrophils/100 WBC (Bld) 65.4 % . [facility] Nitrite Test strip Ql (U)Ord ered By: Lynn Botello on 02-14-2022 Nitrite Ql (U) Negative Negative [facility] No Panel InformationOrdered By: Lynn Botello on 02-14-2022 Estimated GFR () > 60 mL/Min [facility] Comment on above: GFR estimated refere nce range: According to KDOQI guidelines, <60 ml/min/1.73m2 is sufficient to diagnose a patient with chronic kidney disease. Pharmacy Creatinine Clearance (Chem N/A [facility] Platelet mean volume Auto (B ld) [Entitic vol]Ordered By: Lynn Botello on 02-14-2022 Platelet mean volume (Bld) [Entitic vol] 8.8 fL 6.6-10.1 [facility] Platelets Auto (Bld) [#/Vol] Ordered By: Lynn Botello on 02-14-2022 Platelets (Bld) [#/Vol] 185 10*3/uL 150-450 [facility] Protein Auto test strip (U) [Mass/Vol]Ordered By: Lynn Botello on 02-14-2022 Protein (U) [Mass/Vol] 30 mg/dL Negative Fi [facility] Protein [Mass/volume] in Ser um or PlasmaOrdered By: Lynn Botello on 02-14-2022 Protein [Mass/Vol] 7.1 g/dL 6.1-7.9 [facility] RBC Auto (Bld) [#/Vol]Ordere d By: Lynn Botello on 02-14-2022 RBC (Bld) [#/Vol] 5.22 10*6/uL 3.90-5.60 [facility] Serum or plasma alanine quinn otransferase measurement without P-5'-P (enzymatic activiOrdered By: Lynn Botello on 02-14-2022 ALT No additional P-5'-P [Catalytic activity/Vol] 32 U/L 1060 [facility] Serum or plasma albumin/glob ulin mass ratioOrdered By: Lynn Botello on 02-14-2022 Albumin/Globulin [Mass ratio] 1.3 {ratio} [facility] Serum or plasma alkaline malik sphatase measurement (enzymatic activity/volume)Ordered By: Lynn Botello on 02-14-2022 ALP [Catalytic activity/Vol] 85 U/L 32-92 [facility] Serum or plasma anion gap de terminationOrdered By: Lynn Botello on 02-14-2022 Anion gap [Moles/Vol] 14.5 mmol/L 6.0-15.0 [facility] Serum or plasma aspartate am inotransferase measurement (enzymatic activity/volume)Ordered By: Lynn Botello on 02-14-2022 AST [Catalytic activity/Vol] 23 U/L 10-42 [facility] Serum or plasma calcium fermín urement (mass/volume)Ordered By: Lynn Botello on 02-14-2022 Calcium [Mass/Vol] 9.4 mg/dL 8.2-10.2 [facility] Serum or plasma chloride jeffy surement (moles/volume)Ordered By: Lynn Botello on 02-14-2022 Chloride [Moles/Vol] 99 mmol/L 95-[address] [facility] Serum or plasma glucose fermín urement (mass/volume)Ordered By: Lynn Botello on 02-14-2022 Glucose [Mass/Vol] 216 mg/dL 70-100 [facility] Comment on above: ADA recommended refe rence rangeRandom Glucose Reference Range is dependent on time and content of last meal. Glucose of more than 200 mg/dL in a nonstressed, ambulatory subject supports the diagnosis of Diabetes Mellitus. Serum or plasma potassium me asurement (moles/volume)Ordered By: Lynn Botello on 02-14-2022 Potassium [Moles/Vol] 4.5 mmol/L 3.5-5.1 [facility] Serum or plasma sodium measu rement (moles/volume)Ordered By: Lynn Botello on 02-14-2022 Sodium [Moles/Vol] 135 mmol/L 136-146 [facility] Serum or plasma total biliru bin measurement (mass/volume)Ordered By: Lynn Botello on 02-14-2022 Bilirubin [Mass/Vol] 0.6 mg/dL 0.3-1.[address] [facility] Serum or plasma total carbon dioxide measurement (moles/volume)Ordered By: Lynn Botello on 02-14-2022 CO2 [Moles/Vol] 26.0 mmol/L 22.0-30.0 [facility] Serum or plasma urea nitroge n measurement (mass/volume)Ordered By: Lynn Botello on 02-14-2022 Urea nitrogen [Mass/Vol] 21 mg/dL 9-23 [facility] Specific gravity Auto test s trip (U) [Rel density]Ordered By: Lynn Botello on 02-14-2022 Specific gravity (U) [Rel density] 1.027 1.001-1.030 [facility] Squamous epithelial cells de tection in urine sediment by light microscopyOrdered By: Lynn Botello on 02-14-2022 Epithelial cells.squamous LM Ql (Urine sed) None seen [HPF] 0-2 [facility] TSH DL <= 0.005 mIU/L QnOrde red By: Lynn Botello on 02-14-2022 TSH Qn 2.11 m[IU]/L 0.45-5.33 [facility] Urine bacteria detection by automated methodOrdered By: Lynn Botello on 02-14-2022 Bacteria Auto Ql (U) None seen None Seen [facility] Urine clarity by refractomet ry automatedOrdered By: Lynn Botello on 02-14-2022 Clarity Refractometry automated (U) Clear Clear [facility] Urine glucose measurement by automated test strip (mass/volume)Ordered By: Lynn Botello on 02-14-2022 Glucose Auto test strip (U) [Mass/Vol] >=1000 mg/dL Normal [facility] Urine hemoglobin detection b y automated test stripOrdered By: Lynn Botello on 02-14-2022 Hemoglobin Auto test strip Ql (U) Negative Negative [facility] Urine leukocyte esterase det ection by automated test stripOrdered By: Lynn Botello on 02-14-2022 Leukocyte esterase Auto test strip Ql (U) Negative Negative [facility] Urobilinogen Auto test strip (U) [Mass/Vol]Ordered By: Lynn Botello on 02-14-2022 Urobilinogen (U) [Mass/Vol] Normal mg/dL Normal [facility] pH Auto test strip (U)Ordere d By: Lynn Botello on 02-14-2022 pH (U) 5.5 [pH] 5.0-9.0 [facility] Activated partial thrombopla stin time (aPTT) in platelet poor plasma by coagulation aOrdered By: Mohit Carlos on 12-27-2021 aPTT Coag (PPP) [Time] 33.8 s 25.1-36.5 [facility] Automated erythrocytes count in urine sediment (number/area)Ordered By: Mohit Carlos on 12-27-2021 RBC Auto (Urine sed) [#/Area] 0-1 [HPF] 0-4 [facility] Automated leukocytes count i n urine sediment (number/area)Ordered By: Mohit Carlos on 12-27-2021 WBC Auto (Urine sed) [#/Area] 0-1 [HPF] 0-4 [facility] Basophils Auto (Bld) [#/Vol] Ordered By: Mohit Carlos on 12-27-2021 Basophils (Bld) [#/Vol] 0.1 10*3/uL 0.0-0.2 [facility] Basophils/100 WBC Auto (Bld) Ordered By: Mohit Carlos on 12-27-2021 Basophils/100 WBC (Bld) 1.1 % . [facility] Bilirubin Test strip Ql (U)O rdered By: Mohit Carlos on 12-27-2021 Bilirubin Ql (U) Negative Negative [facility] Blood hemoglobin measurement (mass/volume)Ordered By: Mohit Carlos on 12-27-2021 Hemoglobin (Bld) [Mass/Vol] 15.7 g/dL 13.0-17.0 [facility] Blood leukocytes automated c ount (number/volume)Ordered By: Mohit Carlos on 12-27-2021 WBC (Bld) [#/Vol] 10.7 10*3/uL 4.5-11.0 [facility] Body fluid albumin measureme nt (mass/volume)Ordered By: Mohit Carlos on 12-27-2021 Albumin (Body fld) [Mass/Vol] 4.2 g/dL 3.2-5.5 [facility] Color Auto (U)Ordered By: Arnol Carlos on 12-27-2021 Color (U) Yellow Yellow [facility] Creatinine and Glomerular fi ltration rate.predicted panel (S/P/Bld)Ordered By: Mohit Carlos on 12-27-2021 Creatinine [Mass/Vol] 1.50 mg/dL 0.64-1.27 [facility] Direct bilirubin measurement Ordered By: Mohit Carlos on 12-27-2021 Bilirubin.direct [Mass/Vol] mg/dL 0.0-0.4 [facility] Eosinophils Auto (Bld) [#/Vo l]Ordered By: Mohit Carlos on 12-27-2021 Eosinophils (Bld) [#/Vol] 0.0 10*3/uL 0.0-0.45 [facility] Eosinophils/100 WBC Auto (Bl d)Ordered By: Mohit Carlos on 12-27-2021 Eosinophils/100 WBC (Bld) 0.4 % . [facility] Erythrocyte distribution wid th Auto (RBC) [Ratio]Ordered By: Mohit Carlos on 12-27-2021 Erythrocyte distribution width (RBC) [Ratio] 13.8 % 12.0-14.8 [facility] Estimated glomerular filtrat ion rate (GFR) non- AmericanOrdered By: Mohit Carlos on 12-27-2021 GFR/1.73 sq M.predicted among non-blacks MDRD (S/P/Bld) [Vol rate/Area] 49 mL/Min [facility] Globulin Calc (S) [Mass/Vol] Ordered By: Mohit Carlos on 12-27-2021 Globulin (S) [Mass/Vol] 3.8 g/dL [facility] Hematocrit Auto (Bld) [Volum e fraction]Ordered By: Mohit Carlos on 12-27-2021 Hematocrit (Bld) [Volume fraction] 46.2 % 38.8-50.0 [facility] Ketones Auto test strip (U) [Mass/Vol]Ordered By: Mohit Carlos on 12-27-2021 Ketones (U) [Mass/Vol] Negative [facility] - [facility] and C hemistry - challengeOrdered By: Mohit Carlos on 12-27-2021 Lipase [Catalytic activity/Vol] 530.0 U/L 22- [facility] Laboratory - CoagulationOrde red By: Mohit Carlos on 12-27-2021 PT Coag (PPP) [Time] 10.7 s 9.0-12.[address] [facility] Laboratory - Hematology and Cell countsOrdered By: Mohit Carlos on 12-27-2021 Nucleated RBC/100 WBC (Bld) [Ratio] 0.1 % 0-0.5 [facility] Laboratory - UrinalysisOrder ed By: Mohit Carlos on 12-27-2021 Hyaline casts LM Ql (Urine sed) None seen [LPF] 0-8 [facility] Lymphocytes Auto (Bld) [#/Vo l]Ordered By: Mohit Carlos on 12-27-2021 Lymphocytes (Bld) [#/Vol] 3.0 10*3/uL 1.00-4.8 [facility] Lymphocytes/100 WBC Auto (Bl d)Ordered By: Mohit Carlos on 12-27-2021 Lymphocytes/100 WBC (Bld) 27.6 % . [facility] MCH Auto (RBC) [Entitic mass ]Ordered By: Mohit Carlos on 12-27-2021 MCH (RBC) [Entitic mass] 30.2 pg 27.5-35.2 [facility] MCHC Auto (RBC) [Mass/Vol]Or dered By: Mohit Carlos on 12-27-2021 MCHC (RBC) [Mass/Vol] 34.0 g/dL 32.5-35.6 [facility] MCV Auto (RBC) [Entitic vol] Ordered By: Mohit Carlos on 12-27-2021 MCV (RBC) [Entitic vol] 88.7 fL 83.5-101 [facility] Monocytes Auto (Bld) [#/Vol] Ordered By: Mohit Carlos on 12-27-2021 Monocytes (Bld) [#/Vol] 0.6 10*3/uL 0.0-0.8 [facility] Monocytes/100 WBC Auto (Bld) Ordered By: Mohit Carlos on 12-27-2021 Monocytes/100 WBC (Bld) 6.0 % . [facility] Neutrophils Auto (Bld) [#/Vo l]Ordered By: Mohit Carlos on 12-27-2021 Neutrophils (Bld) [#/Vol] 7.0 10*3/uL 1.8-7.7 [facility] Neutrophils/100 WBC Auto (Bl d)Ordered By: Mohit Carlos on 12-27-2021 Neutrophils/100 WBC (Bld) 64.9 % . [facility] Nitrite Test strip Ql (U)Ord ered By: Mohit Carlos on 12-27-2021 Nitrite Ql (U) Negative Negative [facility] No Panel InformationOrdered By: Mohit Carlos on 12-27-2021 Estimated GFR () 59 mL/Min [facility] Comment on above: GFR estimated refere nce range: According to KDOQI guidelines, <60 ml/min/1.73m2 is sufficient to diagnose a patient with chronic kidney disease. Pharmacy Creatinine Clearance (Chem 65.92 [facility] Platelet mean volume Auto (B ld) [Entitic vol]Ordered By: Mohit Carlos on 12-27-2021 Platelet mean volume (Bld) [Entitic vol] 8.3 fL 6.6-10.1 [facility] Platelet poor plasma interna tional normalized ratio (INR) by coagulation assay (relatOrdered By: Mohit Carlos on 12-27-2021 INR Coag (PPP) [Relative time] 1.0 {INR} [facility] Comment on above: INR Therapeutic Rang e [...] 12-27-2021 Platelets (Bld) [#/Vol] 186 10*3/uL 150-450 [facility] Protein Auto test strip (U) [Mass/Vol]Ordered By: Mohit Carlos on 12-27-2021 Protein (U) [Mass/Vol] Trace mg/dL Negative [facility] Protein [Mass/volume] in Ser um or PlasmaOrdered By: Mohit Carlos on 12-27-2021 Protein [Mass/Vol] 8.0 g/dL 6.1-7.9 [facility] RBC Auto (Bld) [#/Vol]Ordere d By: Mohit Carlos on 12-27-2021 RBC (Bld) [#/Vol] 5.21 10*6/uL 3.90-5.60 [facility] Serum or plasma alanine quinn otransferase measurement without P-5'-P (enzymatic activiOrdered By: Mohit Carlos on 12-27-2021 ALT No additional P-5'-P [Catalytic activity/Vol] 36 U/L 10-60 [facility] Serum or plasma albumin/glob ulin mass ratioOrdered By: Mohit Carlos on 12-27-2021 Albumin/Globulin [Mass ratio] 1.1 {ratio} [facility] Serum or plasma alkaline malik sphatase measurement (enzymatic activity/volume)Ordered By: Mohit Carlos on 12-27-2021 ALP [Catalytic activity/Vol] 85 U/L 32-92 [facility] Serum or plasma aspartate am inotransferase measurement (enzymatic activity/volume)Ordered By: Mohit Carlos on 12-27-2021 AST [Catalytic activity/Vol] 26 U/L 10-42 [facility] Serum or plasma calcium fermín urement (mass/volume)Ordered By: Mohit Carlos on 12-27-2021 Calcium [Mass/Vol] 9.8 mg/dL 8.2-10.2 [facility] Serum or plasma chloride jeffy surement (moles/volume)Ordered By: Mohit Carlos on 12-27-2021 Chloride [Moles/Vol] 97 mmol/L 95-[address] [facility] Serum or plasma glucose fermín urement (mass/volume)Ordered By: Mohit Carlos on 12-27-2021 Glucose [Mass/Vol] 172 mg/dL 70-100 [facility] Comment on above: ADA recommended refe rence [...] Mohit Carlos on 12-27-2021 Bilirubin.indirect [Mass/Vol] TNP [facility] Comment on above: Test not performed Serum or plasma potassium me asurement (moles/volume)Ordered By: Mohit Carlos on 12-27-2021 Potassium [Moles/Vol] 3.7 mmol/L 3.5-5.1 [facility] Serum or plasma sodium measu rement (moles/volume)Ordered By: Mohit Carlos on 12-27-2021 Sodium [Moles/Vol] 134 mmol/L 136-146 [facility] Serum or plasma total biliru bin measurement (mass/volume)Ordered By: Mohit Carlos on 12-27-2021 Bilirubin [Mass/Vol] 0.6 mg/dL 0.3-1.[address] [facility] Serum or plasma total carbon dioxide measurement (moles/volume)Ordered By: Mohit Carlos on 12-27-2021 CO2 [Moles/Vol] 26.0 mmol/L 22.0-30.0 [facility] Serum or plasma urea nitroge n measurement (mass/volume)Ordered By: Mohit Carlos on 12-27-2021 Urea nitrogen [Mass/Vol] 22 mg/dL 9-23 [facility] Specific gravity Auto test s trip (U) [Rel density]Ordered By: Mohit Carlos on 12-27-2021 Specific gravity (U) [Rel density] 1.024 1.001-1.030 [facility] Squamous epithelial cells de tection in urine sediment by light microscopyOrdered By: Mohit Carlos on 12-27-2021 Epithelial cells.squamous LM Ql (Urine sed) None seen [HPF] 0-2 [facility] Urine bacteria detection by automated methodOrdered By: Mohit Carlos on 12-27-2021 Bacteria Auto Ql (U) None seen None Seen [facility] Urine clarity by refractomet ry automatedOrdered By: Mohit Carlos on 12-27-2021 Clarity Refractometry automated (U) Clear Clear [facility] Urine glucose measurement by automated test strip (mass/volume)Ordered By: Mohit Carlos on 12-27-2021 Glucose Auto test strip (U) [Mass/Vol] >=1000 mg/dL Normal [facility] Urine hemoglobin detection b y automated test stripOrdered By: Mohit Carlos on 12-27-2021 Hemoglobin Auto test strip Ql (U) Negative Negative [facility] Urine leukocyte esterase det ection by automated test stripOrdered By: Mohit Carlos on 12-27-2021 Leukocyte esterase Auto test strip Ql (U) Negative Negative [facility] Urobilinogen Auto test strip (U) [Mass/Vol]Ordered By: Mohit Carlos on 12-27-2021 Urobilinogen (U) [Mass/Vol] Normal mg/dL Normal [facility] pH Auto test strip (U)Ordere d By: Mohit Carlos on 12-27-2021 pH (U) 7.0 [pH] 5.0-9.0 [facility] Albumin [Mass/volume] in Ser um or PlasmaOrdered By: Godwin Coker on 12-15-2021 Albumin [Mass/Vol] 4.0 g/dL 3.2-5.5 [facility] Automated erythrocytes count in urine sediment (number/area)Ordered By: Godwin Coker on 12-15-2021 RBC Auto (Urine sed) [#/Area] 0-1 [HPF] 0-4 [facility] Automated leukocytes count i n urine sediment (number/area)Ordered By: Godwin Coker on 12-15-2021 WBC Auto (Urine sed) [#/Area] None seen [HPF] 0-4 [facility] Basophils Auto (Bld) [#/Vol] Ordered By: Godwin Coker on 12-15-2021 Basophils (Bld) [#/Vol] 0.1 10*3/uL 0.0-0.2 [facility] Basophils/100 WBC Auto (Bld) Ordered By: Godwin Coker on 12-15-2021 Basophils/100 WBC (Bld) 0.8 % . [facility] Bilirubin Test strip Ql (U)O rdered By: Godwin Coker on 12-15-2021 Bilirubin Ql (U) Negative Negative [facility] Blood hemoglobin measurement (mass/volume)Ordered By: Godwin Coker on 12-15-2021 Hemoglobin (Bld) [Mass/Vol] 15.3 g/dL 13.0-17.0 [facility] Blood leukocytes automated c ount (number/volume)Ordered By: Gowdin Coker on 12-15-2021 WBC (Bld) [#/Vol] 8.4 10*3/uL 4.5-11.0 [facility] Color Auto (U)Ordered By: Ap Coker on 12-15-2021 Color (U) Yellow Yellow [facility] Creatinine and Glomerular fi ltration rate.predicted panel (S/P/Bld)Ordered By: Godwin Coker on 12-15-2021 Creatinine [Mass/Vol] 1.30 mg/dL 0.64-1.27 [facility] Eosinophils Auto (Bld) [#/Vo l]Ordered By: Godwin Coker on 12-15-2021 Eosinophils (Bld) [#/Vol] 0.0 10*3/uL 0.0-0.45 [facility] Eosinophils/100 WBC Auto (Bl d)Ordered By: Godwin Coker on 12-15-2021 Eosinophils/100 WBC (Bld) 0.4 % . [facility] Erythrocyte distribution wid th Auto (RBC) [Ratio]Ordered By: Godwin Coker on 12-15-2021 Erythrocyte distribution width (RBC) [Ratio] 13.4 % 12.0-14.8 [facility] Estimated glomerular filtrat ion rate (GFR) non- AmericanOrdered By: Godwin Coker on 12-15-2021 GFR/1.73 sq M.predicted among non-blacks MDRD (S/P/Bld) [Vol rate/Area] 58 mL/Min [facility] Globulin Calc (S) [Mass/Vol] Ordered By: Godwin Coker on 12-15-2021 Globulin (S) [Mass/Vol] 3.4 g/dL [facility] Hematocrit Auto (Bld) [Volum e fraction]Ordered By: Godwin Coker on 12-15-2021 Hematocrit (Bld) [Volume fraction] 45.2 % 38.8-50.0 [facility] Ketones Auto test strip (U) [Mass/Vol]Ordered By: Godwin Coker on 12-15-2021 Ketones (U) [Mass/Vol] Negative Negative [facility] Laboratory - Chemistry and C hemistry - challengeOrdered By: Godwin Coker on 12-15-2021 Lipase [Catalytic activity/Vol] 220.0 U/L 22-51 [facility] Laboratory - Hematology and Cell countsOrdered By: Godwin Coker on 12-15-2021 Nucleated RBC/100 WBC (Bld) [Ratio] 0.1 % 0-0.5 [facility] Laboratory - UrinalysisOrder ed By: Godwin Coker on 12-15-2021 Hyaline casts LM Ql (Urine sed) None seen [LPF] 0-8 [facility] Lymphocytes Auto (Bld) [#/Vo l]Ordered By: Godwin Coker on 12-15-2021 Lymphocytes (Bld) [#/Vol] 2.1 10*3/uL 1.00-4.8 [facility] Lymphocytes/100 WBC Auto (Bl d)Ordered By: Godwin Coker on 12-15-2021 Lymphocytes/100 WBC (Bld) 24.7 % . [facility] MCH Auto (RBC) [Entitic mass ]Ordered By: Godwin Coker on 12-15-2021 MCH (RBC) [Entitic mass] 29.8 pg 27.5-35.2 [facility] MCHC Auto (RBC) [Mass/Vol]Or dered By: Godwin Coker on 12-15-2021 MCHC (RBC) [Mass/Vol] 33.8 g/dL 32.5-35.6 [facility] MCV Auto (RBC) [Entitic vol] Ordered By: Godwin Coker on 12-15-2021 MCV (RBC) [Entitic vol] 88.3 fL 83.5-101 [facility] Monocytes Auto (Bld) [#/Vol] Ordered By: Godwin Coker on 12-15-2021 Monocytes (Bld) [#/Vol] 0.5 10*3/uL 0.0-0.8 [facility] Monocytes/100 WBC Auto (Bld) Ordered By: Godwin Coker on 12-15-2021 Monocytes/100 WBC (Bld) 6.4 % . [facility] Neutrophils Auto (Bld) [#/Vo l]Ordered By: Godwin Coker on 12-15-2021 Neutrophils (Bld) [#/Vol] 5.7 10*3/uL 1.8-7.7 [facility] Neutrophils/100 WBC Auto (Bl d)Ordered By: Godwin Coker on 12-15-2021 Neutrophils/100 WBC (Bld) 67.7 % . [facility] Nitrite Test strip Ql (U)Ord ered By: Godwin Coker on 12-15-2021 Nitrite Ql (U) Negative Negative [facility] No Panel InformationOrdered By: Godwin Coker on 12-15-2021 Estimated GFR () > 60 mL/Min [facility] Comment on above: GFR estimated refere nce range: According to KDOQI guidelines, <60 ml/min/1.73m2 is sufficient to diagnose a patient with chronic kidney disease. Pharmacy Creatinine Clearance (Chem 69.99 [facility] Platelet mean volume Auto (B ld) [Entitic vol]Ordered By: Godwin Coker on 12-15-2021 Platelet mean volume (Bld) [Entitic vol] 8.3 fL 6.6-10.1 [facility] Platelets Auto (Bld) [#/Vol] Ordered By: Godwin Coker on 12-15-2021 Platelets (Bld) [#/Vol] 184 10*3/uL 150-450 [facility] Protein Auto test strip (U) [Mass/Vol]Ordered By: Godwin Coker on 12-15-2021 Protein (U) [Mass/Vol] 30 mg/dL [facility] Protein [Mass/volume] in Ser um or PlasmaOrdered By: Godwin Coker on 12-15-2021 Protein [Mass/Vol] 7.4 g/dL 6.1-7.9 [facility] RBC Auto (Bld) [#/Vol]Ordere d By: Godwin Coker on 12-15-2021 RBC (Bld) [#/Vol] 5.12 10*6/uL 3.90-5.60 [facility] Serum or plasma alanine quinn otransferase measurement without P-5'-P (enzymatic activiOrdered By: Godwin Coker on 12-15-2021 ALT No additional P-5'-P [Catalytic activity/Vol] 35 U/L 10-60 [facility] Serum or plasma albumin/glob ulin mass ratioOrdered By: Godwin Coker on 12-15-2021 Albumin/Globulin [Mass ratio] 1.2 {ratio} [facility] Serum or plasma alkaline malik sphatase measurement (enzymatic activity/volume)Ordered By: Godwin Coker on 12-15-2021 ALP [Catalytic activity/Vol] 82 U/L 32-92 [facility] Serum or plasma aspartate am inotransferase measurement (enzymatic activity/volume)Ordered By: Godwin Coker on 12-15-2021 AST [Catalytic activity/Vol] 28 U/L 10-42 [facility] Serum or plasma calcium fermín urement (mass/volume)Ordered By: Godwin Coker on 12-15-2021 Calcium [Mass/Vol] 9.8 mg/dL 8.2-10.2 [facility] Serum or plasma chloride jeffy surement (moles/volume)Ordered By: Godwin Coker on 12-15-2021 Chloride [Moles/Vol] 105 mmol/L 95-[address] [facility] Serum or plasma glucose fermín urement (mass/volume)Ordered By: Godwin Coker on 12-15-2021 Glucose [Mass/Vol] 204 mg/dL 70-100 [facility] Comment on above: ADA recommended refe rence [...] on 12-15-2021 Potassium [Moles/Vol] 4.0 mmol/L 3.5-5.1 [facility] Serum or plasma sodium measu rement (moles/volume)Ordered By: Godwin Coker on 12-15-2021 Sodium [Moles/Vol] 137 mmol/L 136-146 [facility] Serum or plasma total biliru bin measurement (mass/volume)Ordered By: Godwin Coker on 12-15-2021 Bilirubin [Mass/Vol] 0.5 mg/dL 0.3-1.[address] [facility] Serum or plasma total carbon dioxide measurement (moles/volume)Ordered By: Godwin Coker on 12-15-2021 CO2 [Moles/Vol] 23.7 mmol/L 22.0-30.0 [facility] Serum or plasma urea nitroge n measurement (mass/volume)Ordered By: Godwin Coker on 12-15-2021 Urea nitrogen [Mass/Vol] 22 mg/dL 9-23 [facility] Specific gravity Auto test s trip (U) [Rel density]Ordered By: Godwin Coker on 12-15-2021 Specific gravity (U) [Rel density] 1.031 1.001-1.030 [facility] Squamous epithelial cells de tection in urine sediment by light microscopyOrdered By: Godwin Coker on 12-15-2021 Epithelial cells.squamous LM Ql (Urine sed) None seen [HPF] 0-2 [facility] Urine bacteria detection by automated methodOrdered By: Godwin Coker on 12-15-2021 Bacteria Auto Ql (U) None seen None Seen [facility] Urine clarity by refractomet ry automatedOrdered By: Godwin Coker on 12-15-2021 Clarity Refractometry automated (U) Clear Clear [facility] Urine glucose measurement by automated test strip (mass/volume)Ordered By: Godwin Coker on 12-15-2021 Glucose Auto test strip (U) [Mass/Vol] >=1000 mg/dL Normal [facility] Urine hemoglobin detection b y automated test stripOrdered By: Godwin Coker on 12-15-2021 Hemoglobin Auto test strip Ql (U) Negative Negative [facility] Urine lactic acid measuremen tOrdered By: Godwin Coker on 12-15-2021 Lactate (U) [Moles/Vol] 1.1 mmol/L 0.5-2.2 [facility] Urine leukocyte esterase det ection by automated test stripOrdered By: Godwin Coker on 12-15-2021 Leukocyte esterase Auto test strip Ql (U) Negative Negative [facility] Urobilinogen Auto test strip (U) [Mass/Vol]Ordered By: Godwin Coker on 12-15-2021 Urobilinogen (U) [Mass/Vol] Normal mg/dL Normal [facility] pH Auto test strip (U)Ordere d By: Godwin Coker on 12-15-2021 pH (U) 7.0 [pH] 5.0-9.0 [facility] COVID-19 SOFIAOrdered By: Blayne Anne on 11-28-2021 SARS-CoV+SARS-CoV-2 (COVID-19) Ag IA.rapid Ql (Resp) Negative Negative [facility] Comment on above: This is a duplicate Deena SARS Antigen (HEYDI) result to be used for statistical tracking purpose only. No Panel InformationOrdered By: Tae Anne on 11-28-2021 SARS Antigen (LFIA) [facility] - Hematology and Cell countsOrdered By: Fredy Brito on 06-05-2021 Nucleated RBC/100 WBC (Bld) [Ratio] 0.0 % 0-0.5 [facility] Vital Signs Date Time Vital Sign Value Performing Clinician Faci lity 07-01-2022 22:35-0500 Body height 180.34 cm Services [facility] [employer] Work Phone: [facility] 07-01-2022 22:35-0500 Body temperature 99 [degF] Services [facility] Work Phone: [facility] 07-01-2022 22:35-0500 Body weight 90.71 kg Services [facility] Work Phone: [facility] 07-01-2022 22:35-0500 Diastolic blood pressure 93 mm[Hg] [facility] Work Phone: [facility] 07-01-2022 22:35-0500 Heart rate 101 /min [facility] Work Phone: [facility] 07-01-2022 22:35-0500 Respiratory rate 22 /min [facility] Work Phone: [facility] 07-01-2022 22:35-0500 SaO2% (BldA) [Mass fraction] 97 % [facility] Work Phone: [facility] 07-01-2022 22:35-0500 Systolic blood pressure 171 mm[Hg] [facility] Work Phone: [facility] 06-08-2022 11:18-0500 Body height 180.34 cm [facility] Work Phone: [facility] 06-08-2022 11:18-0500 Body temperature 98.1 [degF] [facility] Work Phone: [facility] 06-08-2022 11:18-0500 Body weight 94.7 kg [facility] Work Phone: [facility] 06-08-2022 11:18-0500 Diastolic blood pressure 83 mm[Hg] [facility] Work Phone: [facility] 06-08-2022 11:18-0500 Heart rate 99 /min [facility] Work Phone: [facility] 06-08-2022 11:18-0500 Respiratory rate 18 /min [facility] Work Phone: [facility] 06-08-2022 11:18-0500 SaO2% (BldA) [Mass fraction] 98 % [facility] Work Phone: [facility] 06-08-2022 11:18-0500 Systolic blood pressure 124 mm[Hg] [facility] Work Phone: [facility] 05-14-2022 21:36-0500 Body height 180.34 cm [facility] Work Phone: [facility] 05-14-2022 21:36-0500 Body temperature 99 [degF] [facility] Work Phone: [facility] 05-14-2022 21:36-0500 Body weight 90.8 kg [facility] Work Phone: [facility] 05-14-2022 21:36-0500 Diastolic blood pressure 93 mm[Hg] [facility] Work Phone: [facility] 05-14-2022 21:36-0500 Heart rate 93 /min [facility] Work Phone: [facility] 05-14-2022 21:36-0500 Respiratory rate 16 /min [facility] Work Phone: [facility] 05-14-2022 21:36-0500 SaO2% (BldA) [Mass fraction] 96 % [facility] Work Phone: [facility] 05-14-2022 21:36-0500 Systolic blood pressure 141 mm[Hg] [facility] Work Phone: [facility] 03-09-2022 12:34-0400 Body height 180.34 cm [facility] Work Phone: [facility] 03-09-2022 12:34-0400 Body temperature 97.4 [degF] [facility] Work Phone: [facility] 03-09-2022 12:34-0400 Body weight 90.45 kg [facility] Work Phone: [facility] 03-09-2022 12:34-0400 Diastolic blood pressure 88 mm[Hg] [facility] Work Phone: [facility] 03-09-2022 12:34-0400 Heart rate 86 /min [facility] Work Phone: [facility] 03-09-2022 12:34-0400 Respiratory rate 18 /min [facility] Work Phone: [facility] 03-09-2022 12:34-0400 SaO2% (BldA) [Mass fraction] 100 % [facility] Work Phone: [facility] 03-09-2022 12:34-0400 Systolic blood pressure 137 mm[Hg] [facility] Work Phone: [facility] 03-07-2022 13:37-0400 Body height 180.34 cm [facility] Work Phone: [facility] 03-07-2022 13:37-0400 Body temperature 98.3 [degF] [facility] Work Phone: [facility] 03-07-2022 13:37-0400 Body weight 90.71 kg [facility] Work Phone: [facility] 03-07-2022 13:37-0400 Diastolic blood pressure 96 mm[Hg] [facility] Work Phone: [facility] 03-07-2022 13:37-0400 Heart rate 89 /min [facility] Work Phone: [facility] 03-07-2022 13:37-0400 Respiratory rate 18 /min [facility] Work Phone: [facility] 03-07-2022 13:37-0400 SaO2% (BldA) [Mass fraction] 100 % [facility] Work Phone: [facility] 03-07-2022 13:37-0400 Systolic blood pressure 160 mm[Hg] [facility] Work Phone: [facility] 02-28-2022 10:22-0400 Diastolic blood pressure 91 mm[Hg] [facility] Work Phone: [facility] 02-28-2022 10:22-0400 Heart rate 85 /min [facility] Work Phone: [facility] 02-28-2022 10:22-0400 Respiratory rate 16 /min [facility] Work Phone: [facility] 02-28-2022 10:22-0400 SaO2% (BldA) [Mass fraction] 99 % [facility] Work Phone: [facility] 02-28-2022 10:22-0400 Systolic blood pressure 138 mm[Hg] [facility] Work Phone: [facility] 02-28-2022 08:15-0400 Body height 180.34 cm [facility] Work Phone: [facility] 02-28-2022 08:15-0400 Body temperature 97.6 [degF] [facility] Work Phone: [facility] 02-28-2022 08:15-0400 Body weight 90.71 kg [facility] Work Phone: [facility] 02-27-2022 13:21-0400 Body height 180.34 cm [facility] Work Phone: [facility] 02-27-2022 13:21-0400 Body temperature 97.6 [degF] [facility] Work Phone: [facility] 02-27-2022 13:21-0400 Body weight 89.6 kg [facility] Work Phone: [facility] 02-27-2022 13:21-0400 Diastolic blood pressure 88 mm[Hg] [facility] Work Phone: [facility] 02-27-2022 13:21-0400 Heart rate 100 /min [facility] Work Phone: [facility] 02-27-2022 13:21-0400 Respiratory rate 20 /min [facility] Work Phone: [facility] 02-27-2022 13:21-0400 SaO2% (BldA) [Mass fraction] 100 % [facility] Work Phone: [facility] 02-27-2022 13:21-0400 Systolic blood pressure 130 mm[Hg] [facility] Work Phone: [facility] 12-27-2021 02:28-0400 Diastolic blood pressure 99 mm[Hg] [facility] Work Phone: [facility] 12-27-2021 02:28-0400 Heart rate 97 /min [facility] Work Phone: [facility] 12-27-2021 02:28-0400 Respiratory rate 18 /min [facility] Work Phone: [facility] 12-27-2021 02:28-0400 SaO2% (BldA) [Mass fraction] 100 % [facility] Work Phone: [facility] 12-27-2021 02:28-0400 Systolic blood pressure 150 mm[Hg] [facility] Work Phone: [facility] 12-26-2021 23:35-0400 Body height 180.34 cm [facility] Work Phone: [facility] 12-26-2021 23:35-0400 Body temperature 98.7 [degF] [facility] Work Phone: [facility] 12-26-2021 23:35-0400 Body weight 91.62 kg [facility] Work Phone: [facility] 12-15-2021 14:39-0400 Body temperature 97.6 [degF] [facility] Work Phone: [facility] 12-15-2021 14:39-0400 Diastolic blood pressure 82 mm[Hg] [facility] Work Phone: [facility] 12-15-2021 14:39-0400 Heart rate 84 /min [facility] Work Phone: [facility] 12-15-2021 14:39-0400 Respiratory rate 16 /min [facility] Work Phone: [facility] 12-15-2021 14:39-0400 SaO2% (BldA) [Mass fraction] 100 % [facility] Work Phone: [facility] 12-15-2021 14:39-0400 Systolic blood pressure 154 mm[Hg] [facility] Work Phone: [facility] 12-15-2021 13:27-0400 Body height 180.34 cm Services [facility] Work Phone: [facility] 12-15-2021 13:27-0400 Body weight 87.9 kg [facility] Work Phone: [facility] 11-28-2021 18:01-0400 Heart rate 90 /min [facility] Work Phone: [facility] 11-28-2021 17:45-0400 Body height 180.34 cm Services [facility] Work Phone: [facility] 11-28-2021 17:45-0400 Body mass index (BMI) [Ratio] 28.3 kg/m2 [facility] Work Phone: [facility] 11-28-2021 17:45-0400 Body temperature 98.2 [degF] [facility] Work Phone: [facility] 11-28-2021 17:45-0400 Body weight 92.15 kg Services [facility] Work Phone: [facility] 11-28-2021 17:45-0400 Diastolic blood pressure 83 mm[Hg] [facility] Work Phone: [facility] 11-28-2021 17:45-0400 Respiratory rate 18 /min [facility] Work Phone: [facility] 11-28-2021 17:45-0400 SaO2% (BldA) [Mass fraction] 97 % [facility] Work Phone: [facility] 11-28-2021 17:45-0400 Systolic blood pressure 128 mm[Hg] [facility] Work Phone: [facility] Encounters Encounter Date Encounter Type Care Provider Facility Start: 07-18-2023 End: 07-18-2023 Emergency department patient visit Services [facility] Facility:[facility] Start: 07-16-2023 End: 07-16-2023 ambulatory Lynn E Spasic Facility:[facility] Start: 04-25-2023 End: 04-25-2023 ambulatory Lynn E Spasic Facility:[facility] Start: 04-25-2023 End: 04-25-2023 ambulatory [facility] Work Phone: [facility] Work Phone: Start: 04-25-2023 End: 04-25-2023 Patient encounter procedure [facility] Work Phone: [facility]-Ultrasound [facility] [place] Work Phone: Start: 01-24-2023 ambulatory Mobowenf Cherryi Faci lity:[id number] Start: 01-24-2023 End: 01-24-2023 ambulatory Mitch Fischer Rodrigo Facility:[facility] Start: 01-24-2023 End: 01-24-2023 ambulatory [facility] Work Phone: [facility] Work Phone: Start: 01-24-2023 End: 01-24-2023 Patient encounter procedure [facility] Work Phone: [facility]-Electrodiagnostic s Work Phone: Start: 12-31-2022 End: 12-31-2022 ambulatory Lynn E Spasic Facility:[id number] Start: 12-31-2022 End: 12-31-2022 ambulatory [facility] Work Phone: [facility] Work Phone: Start: 12-31-2022 End: 12-31-2022 Patient encounter procedure [facility] Work Phone: [facility]-Electrodiagnostic s Work Phone: Start: 07-01-2022 End: 07-02-2022 Emergency department patient visit [facility] Work Phone: [facility]-Emergency Room Work Phone: Start: 06-26-2022 End: 06-26-2022 ambulatory [facility] Work Phone: [facility] Work Phone: Start: 06-26-2022 End: 06-26-2022 Departed Referred Services [facility] Work Phone: [facility] Start: 06-08-2022 End: 06-08-2022 ambulatory [facility] Work Phone: [facility] Work Phone: Start: 06-08-2022 End: 06-08-2022 Registered Recurring Services [facility] Work Phone: [facility]-Cancer Center Work Phone: Start: 05-14-2022 End: 05-14-2022 Emergency department patient visit [facility] Work Phone: [facility]-Emergency Room Work Phone: Start: 03-09-2022 End: 03-09-2022 Emergency department patient visit [facility] Work Phone: [facility]-Emergency Room Start: 03-07-2022 End: 03-07-2022 Emergency department patient visit [facility] Work Phone: [facility]-Emergency Room Start: 02-28-2022 End: 02-28-2022 Admission to same day surgery center Services [facility] Work Phone: [facility]-Digestive Health Start: 02-28-2022 End: 02-28-2022 ambulatory [facility] Work Phone: [facility] Work Phone: Start: 02-27-2022 End: 02-27-2022 Emergency department patient visit [facility] Work Phone: [facility]-Emergency Room Start: 02-26-2022 End: 02-26-2022 ambulatory Services [employer] Work Phone: [facility] Work Phone: Start: 02-26-2022 End: 02-26-2022 Patient encounter procedure Services [facility] Work Phone: [facility]-Pre-Surgical Testing Start: 02-14-2022 End: 02-14-2022 ambulatory Services [employer] [facility] Work Phone: [facility] Work Phone: Start: 02-14-2022 End: 02-14-2022 Patient encounter procedure Services [employer] Phone: [facility]-Electrodiagnostic s Start: 12-26-2021 End: 12-27-2021 Emergency department patient visit Services [employer] [facility] [employer] Phone: [facility]-Emergency Room Start: 12-15-2021 End: 12-15-2021 Emergency department patient visit Services [facility] [employer] Phone: [facility]-Emergency Room Start: 12-14-2021 End: 12-14-2021 Patient encounter procedure Services [employer] Phone: [facility]-CT Scan [facility] [place] Start: 11-28-2021 End: 11-28-2021 Emergency department patient visit Services [facility] [employer] Phone: [facility]-Emergency Room Procedures Date Procedure Procedure Detail Performing Clinician Start: 04-25-2023 Doppler ultrasonography of bilateral carotid arteries Services [facility] [employer] Phone: Start: 06-06-2022 CT of abdomen and pelvis without contrast Services [facility] [employer] Phone: Start: 06-06-2022 CT of chest without contrast Services [facility] [employer] Phone: Start: 05-14-2022 Plain chest X-ray Services [facility] [employer] Phone: Start: 05-14-2022 SARS-CoV-2, Influenza & RSV (PCR) [facility] Work Phone: Start: 02-28-2022 Esophagogastroduodenoscopy Services [employer] Work Phone: Start: 12-27-2021 Computed tomography of abdomen and pelvis with contrast Services [employer] Phone: Start: 12-15-2021 CT of abdomen and pelvis without contrast [facility] Phone: Start: 12-14-2021 CT of abdomen and pelvis without contrast [facility]: Start: 11-28-2021 Plain chest X-ray [facility]: Start: 06-05-2021 CT chest wo con [facility]: Start: 06-05-2021 CT of abdomen and pelvis without contrast [facility] Phone: SARS Antigen (LFIA) [facility] Phone: Screening for occult blood in feces [facility] Phone: Plan of Treatment Date Care Activity Detail Author Start: 05-14-2022 Plain chest X-ray XR chest 1V portab le [facility] Start: 05-14-2022 XR Chest Single view [facility] Start: 02-28-2022 [facility] Start: 12-27-2021 Computed tomography of abdomen and pelvis with contrast CT abdomen pelvis w con [facility] Start: 12-26-2021 End: 12-27-2021 Emergency department patient visit Departed Emergency [facility]-Emergency Room Patient Education [facility] Work Phone: Patient referral [facility] Work Phone: Immunizations Immunization Date Immunization Notes Care Provider Fa jasmin NEGATED: Highlighted row has not occurred!05-09-2020 influenza, injectable, quadrivalent, preservative free [facility] Phone: [facility] Payers Date Payer Category Payer Medicaid [id number] 2022 Self-pay [id number] 1970 Unknown [id number] 2.16. [id number] 1970 Unknown [id number] 2.16. [id number] Medicaid [facility] [id number] Unknown MMO [id number] Unknown [employer] [employer] [id number] Unknown [id number] 2.16.8 [id number] Unknown [id number] 2.16.8 [id number] Unknown [id number] 2.16.8 [id number] Unknown [id number] 2.16.8 [id number] Unknown [id number] 2.16.8 [id number] Social History Date Type Detail Facility Start: 12-27-2021 End: 07-02-2022 Tobacco smoking status NHIS Smoker (finding) [facility] Start: 1970 Sex Assigned At Male F [facility] Goals Date Patient Goal Desired Activity /State Clinical Notes 05-27-2020 to 02-28-2022 Note Date & Type Note Facility 02-28-2022 Procedure note [facility] 06-09-2021 Progress note Note Date/Time June 09, 2021 3:10pm [facility] at [address] [address] Hem/Onc Follow Up Note - OP Signed Patient: Silverio Barahona MR#: [id number] : 1970 Acct:[id number] Age/Sex: 50 / M Type: REG RCR Copies to: [facility] Fredy Brito II, DO~ Subjective Date/Time of [...] and shaky. He following with Lynn Botello [facility] currently. He is uninsured so cannot see [...] last year. still following with Lynn Botello [employer] for this is drinking about 4 energy [...] % (Auto) 60.4, Lymph % (Auto) 29.8, Brantley % (Auto) 7.7, Eos % (Auto) 1.3, Baso % (Auto) 0.8, Neut # (Auto) 4.1, Lymph # (Auto) 2.0, Brantley # (Auto) 0.5, Eos# (Auto) 0.1, Baso [...] He re-established care in 2019 during admission [facility]. He is now followed yearly with scans. [...] for coordination of care (as documented) and bqjv-oi-[id number] counseling of patient and/or family. Dictated By: Mara Page APRN DD/ 1503 Signed By: <Electronically signed by MACIE Page> 06/09/21 1620 [facility] Work Phone: [phone]) 624-133301-15-2021 Progress note Author Fredy Brito [facility] May 27, 2020 9:18am Note Date/Time May 27, 2020 8 :56am [facility] at [address] [address] Hem/Onc Follow Up Note - OP Signed Patient: Silverio Barahona MR#: [id number] : 1970 Acct:[id number] Age/Sex: 49 / M Type: REG RCR Copies to: [employer] SERVICES~ Subjective Date/Time of Service: Date of [...] and shaky. He following with Lynn Botello [facility] currently. He is uninsured so cannot see Dr. Lina Mckeon any longer. He lost job and lookingfor new one. Platelets recovered completely prior to discharge. Has upcoming MRIbrain scheduled noncontrast. [facility] - Medical History Medical History: Medical [...] for coordination of care (as documented) and kdec-mq-[id number] counseling of patient and/or family. Attestation Statement - Physician Attestation f/u 1 year after repeat imaging. labs at f/u. Dictated By: Fredy Brito II, DO DD/ 0855 Signed By: <Electronically signed by Fredy Brito II, DO> 05/27/20 0918 [facility] Work Phone: Evaluation noteNo assessment information available [facility] Work Phone: Evaluation note* Diagnosis Onset Date Resolution Status Renal cell cancer acute [facility] Work Phone: History and physical note Author Devon Damico [facility] February 28, 2022 9:25am Note Date/Time February 28, 2022 9 :25am [facility] [address] [place] [address] Gastroenterology H&P Signed Patient: Silverio Barahona MR#: [id number] : 1970 Acct:[id number] Age/Sex: 51 / M Adm Date: 2 Loc: Room: Type: [facility] Attending Dr: Devon Damico MD Copies to: Devon Damico MD [facility]~ Date of Service: 02/28/2022 HISTORY [...] <Electronically signed by Devon Damico MD> 02/28/22924 [facility] Work Phone: Hospital Discharge instructions Additional Instructions Use the eye antibiotic ointment 3 times a day in the left eye while awake May apply warm compresses for discomfort drainage May take lzqe-wfy-kpcmwex medication for discomfort Follow-up with [facility] or another Eye Center of your choice this week for recheck Go to an eye center immediately or return to the ER for worsening redness swelling pain loss of vision or any other concerns[facility] Work Phone: Hospital Discharge instructions Additional [...] NOT operate machinery such as power tools, Funky Android[employer] mowers, snow blowers, sewing machines, etc. for [...] NOT operate machinery such as power tools, [employer] mowers, snow blowers, sewing machines, etc. for [...] Follow up with PCP. - Office number [phone].[facility] Work Phone: Hospital Discharge instructions Additional Instructions [...] significantly elevated blood sugar or any other [facility] Work Phone: Hospital Discharge instructions Additional Instructions If your symptoms return/worsen or you develop any further concerns or symptoms please see your doctor or return to the emergency department immediately.[facility] Work Phone: Progress note Author Fredy Brito [facility] June 08, 2022 11:30am Note Date/Time June 08, 2022 1 1:25am [facility] at [address] [address] Hem/Onc Follow Up Note - OP Signed Patient: Silverio Barahona MR#: [id number] : 1970 Acct:[id number] Age/Sex: 51 / M Type: REG RCR Copies to: [facility]~ Date of Service: 06/08/2022 Time [...] He re-established care in 2019 during admission [facility]. He is now followed yearly with scans. [...] and shaky. He following with Lynn Botello [facility] currently. He is uninsured so cannot see [...] last year. still following with Lynn Botello [employer] for this is drinking about 4 energy [...] for coordination of care (as documented) and uaix-le-cdoo counseling of patient and/or family. [facility] - Medical History Medical History: Medical [...] % (Auto) 56.5, Lymph % (Auto) 31.4, Brantley % (Auto) 7.9, Eos % (Auto) 3.6, Baso % (Auto) 0.6, Nucleat RBC Rel Count 0.1, Neut # (Auto) 4.6, Lymph # (Auto) 2.6, Brantley # (Auto) 0.6, Eos # (Auto) 0.3, [...] by Fredy Brito II, DO> 06/08/22 1130 [facility] Work Phone: Chief Complaint and Reason [...] Status: Inactive Member Role Status Dates Services [facility] Primary Care Provider Active Tae Anne PA-C Emergency Provider Active Team Status: Active Member Role Status Dates Services [facility] Primary Care Provider Active Team Status: Inactive Member Role Status Dates [facility] Primary Care Provider Active Devon Damico MD Attending Provider Active Team Status: Inactive Member Role Status Dates [facility] Primary Care Provider Active Kiya Riggins , CAPONIZER-BC Emergency Provider Active Team Status: Inactive Member Role Status Dates [facility] Primary Care Provider Active Fredy Mayorga APRN Emergency Provider Active Team Status: Active Member Role Status Dates [facility] Primary Care Provider Active Fredy Brito II, DO Attending Provider Active Team Status: Inactive Member Role Status Dates [facility] Primary Care Provider Active JOSE Hillman Attending [...] section and content) DATE CREATED AUTHOR 01/26/2023 [facility] [place] DATE CREATED AUTHOR AUTHOR'S ORGANIZ ATION 07/31/2023 [facility] FOR RECORDS PERTAINING TO PATIENTS WHO [...] BE BASED ON THE PRIMARY CLINICAL RECORDS. [facility] [employer] [facility]. provides no warranty or guarantee of the accuracy or completeness of information in this document.
--- NOTE | 2023-09-04 19:12 | XR_ITS ---
[facility] [place] [id number] Patient Name: GENE DE LA PAZ MRN: [id number] date: 1970 Sex: M Assigned Patient Location: ER Current Patient Location: ER Accession/Order Number: [id number] Exam Date: 09/04/2023 19:31 Report Date: 09/04/2023 20:31 At the request of: KATHERINE CASAS Procedure: XR chest 2V XR chest 2V 09/04/2023 7:31 PM EDT CLINICAL INDICATION: Chest pain COMPARISON: 04/23/2023 TECHNIQUE: PA and lateral views of the chest. FINDINGS: There are no tubes or implants noted. The cardiomediastinal silhouette and pulmonary vasculature are within normal limits. No focal parenchymal opacities. No pneumothorax or pleural effusion. No displaced rib fractures. Osseous structures demonstrate degenerative changes. Soft tissues are grossly normal. XR/XR chest 2V IMPRESSION: No acute cardiopulmonary abnormality. Electronically authenticated by: OLEG BANSAL Date: 09/04/2023 20:31
--- NOTE | 2023-09-04 19:12 | XR_ITS ---
[address] [address] Patient Name: GENE DE LA PAZ MRN: [id number] date: 1970 Sex: M Assigned Patient Location: ER Current Patient Location: ER Accession/Order Number: [id number] Exam Date: 09/04/2023 19:31 Report Date: 09/04/2023 20:33 At the request of: KATHERINE CASAS Procedure: XR shoulder RT min 2V XR shoulder RT min 2V 09/04/2023 7:31 PM EDT CLINICAL INDICATION: Shoulder pain COMPARISON: None. TECHNIQUE: 3 views of the right shoulder. FINDINGS: The bones are intact. The alignment is anatomic. There are degenerative changes of the joints. The soft tissues are grossly unremarkable. XR/XR shoulder RT min 2V IMPRESSION: No acute osseous abnormality of the right shoulder. Electronically authenticated by: OLEG BANSAL Date: 09/04/2023 20:33
--- NOTE | 2023-09-04 19:14 | ED_ITS ---
HPI HPI - Back Pain/Injury General Chief Complaint: Back Pain/Injury Stated Complaint: Back Pain Time Seen by Provider: 09/04/23 19:04 Source: patient Mode of arrival: walk-in Limitations: no limitations History of Present Illness HPI Narrative: Patient is a 52-year-old male who presents to the emergency department for right shoulder pain for the last several days. He reports pain in the right trapezius area with radiation down the posterior right chest. He denies any mechanism of injury or trauma but his significant other at bedside states that he was lifting his daughter into an ambulance several days ago and then the pain began in the right trapezius area. He does have pain that radiates into the right arm. Pain in the right shoulder is significantly worse with abduction of the right arm. No medications prior to arrival. Related Data Home Medications ?Medication ?Instructions ?Recorded ?Confirmed atorvastatin 40 mg tablet 40 mg PO DAILY 03/19/23 08/09/23 buspirone 10 mg tablet 10 mg PO DAILY 03/19/23 08/09/23 dapagliflozin propanediol 10 mg 10 mg PO DAILY 03/19/23 08/09/23 tablet (Farxiga) gabapentin 600 mg tablet 600 mg PO Q12H PRN pain 03/19/23 08/09/23 hydrochlorothiazide 25 mg tablet 25 mg PO DAILY 03/19/23 08/09/23 insulin aspart U-100 100 unit/mL 7 unit subcut DAILY 03/19/23 08/09/23 subcutaneous solution insulin glargine 100 unit/mL (3 unit subcut .meals 03/19/23 mL) subcutaneous pen (Lantus Solostar U-100 Insulin) lisinopril 5 mg tablet 5 mg PO DAILY 03/19/23 08/09/23 metoprolol succinate 25 mg 25 mg PO DAILY 03/19/23 08/09/23 tablet,extended release 24 hr ropinirole 0.25 mg tablet 0.25 mg PO DAILY 03/19/23 08/09/23 tizanidine 4 mg tablet 4 mg PO DAILY PRN pain 03/19/23 08/09/23 Previous Rx's ?Medication ?Instructions ?Recorded hyoscyamine sulfate 0.125 mg 0.125 mg PO Q6H PRN abdominal pain 04/23/23 tablet (Levsin) #12 tabs ondansetron 4 mg disintegrating 4 mg PO Q6H PRN nausea and 04/23/23 tablet vomiting #12 tabs hydrocodone 5 mg-acetaminophen 325 1 tab PO Q6H PRN pain 3 days #12 09/04/23 mg tablet tabs ketorolac 10 mg tablet 10 mg PO TID PRN pain #6 tabs 09/04/23 methocarbamol 750 mg tablet 750 mg PO TID PRN pain #20 tabs 09/04/23 Allergies Allergy/AdvReac Type Severity Reaction Status Date / Time No Known Drug Allergies Allergy Verified 09/04/23 19:06 Opioid HPI Opioid Management Most Recent Opioid Data: Last Pain Scale 8 09/04/23 19:49 Last MAR Pain Assessment 09/04/23 19:45 Review of Systems ROS Constitutional Denies: fever or chills Ears, nose, mouth, and throat Denies: throat pain or nasal congestion Cardiovascular Denies: chest pain Respiratory Denies: shortness of breath Gastrointestinal Denies: nausea or vomiting Musculoskeletal Reports: back pain and extremity pain; Denies: neck pain Integumentary/Breast Denies: rash Neurological Denies: headache Hematologic/Lymphatic Denies: easy bruising or easy bleeding PFSH PFSH Medical History (Updated 09/04/23 @ 20:39 by LILIANE Hassan) Diabetes ?E11.9 - Type 2 diabetes mellitus without complications (ICD-10) Surgical History (Updated 11/12/22 @ 02:23 by Diana Mcghee) History of kidney surgery ?Z98.890 - Other specified postprocedural states (ICD-10) History of cholecystectomy ?Z90.49 - Acquired absence of other specified parts of digestive tract (ICD- 10) History of appendectomy ?Z90.49 - Acquired absence of other specified parts of digestive tract (ICD- 10) Social History Smoking status: Current every day smoker Exam Narrative Exam Narrative: Gen.: Awake, alert, in no distress Head: Normocephalic, atraumatic ENT: Moist mucous membranes Respiratory: No respiratory distress Back: Tenderness of the right trapezius and glenohumeral joint, no scapular or midline thoracic tenderness; Pain with abduction of the right arm. 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 Extremities: Moves extremities equally Psych: Normal mood and affect Neuro: No focal neuro deficit Skin: Warm, dry, intact Constitutional Vital Signs, click to edit/add: Last Vital Signs Temp 98.1 F 09/04/23 19:02 Pulse 100 H 09/04/23 19:02 Resp 16 09/04/23 19:02 BP 169/115 H 09/04/23 19:02 Pulse Ox 100 09/04/23 19:02 O2 Del Method Room Air 09/04/23 19:02 Course Vital Signs Vital signs: Vital Signs Temperature 98.1 F 09/04/23 19:02 Pulse Rate 100 H 09/04/23 19:02 Respiratory Rate 16 09/04/23 19:02 Blood Pressure 169/115 H 09/04/23 19:02 Pulse Oximetry 100 09/04/23 19:02 Oxygen Delivery Method Room Air 09/04/23 19:02 Temperature 98.1 F 09/04/23 19:02 Pulse Rate 100 H 09/04/23 19:02 Respiratory Rate 16 09/04/23 19:02 Blood Pressure 169/115 H 09/04/23 19:02 Pulse Oximetry 100 09/04/23 19:02 Oxygen Delivery Method Room Air 09/04/23 19:02 MDM - Back Pain/Injury MDM Narrative Medical decision making narrative: Exam and history are consistent with musculoskeletal pain over the right trapezius. X-rays of the chest and shoulder are unremarkable and the patient is discharged home with symptomatic treatment. Follow-up with PCP and return to the ER if symptoms change or worsen Medical Records Attestation: I reviewed the patient's medical records. Imaging Data Chest x-ray: Radiologist's impression: ITS Impressions Chest X-Ray 09/04/23 19:12 IMPRESSION: No acute cardiopulmonary abnormality. Electronically authenticated by: OLEG BANSAL Date: 09/04/2023 20:31 Shoulder X-Ray 09/04/23 19:12 IMPRESSION: No acute osseous abnormality of the right shoulder. Electronically authenticated by: OLEG BANSAL Date: 09/04/2023 20:33 Discharge Plan Discharge Stand Alone Forms: Portal Instructions Chief Complaint: Back Pain/Injury Clinical Impression: Trapezius strain, Acute pain of right shoulder Patient Disposition: Home, Self-Care Time of Disposition Decision: 20:39 Condition: Good Prescriptions / Home Meds: New hydrocodone-acetaminophen 5-325 mg tablet 1 tab PO Q6H PRN (Reason: pain) 3 Days Qty: 12 0RF Rx Instructions: DX: M25.511 ketorolac 10 mg tablet 10 mg PO TID PRN (Reason: pain) Qty: 6 0RF methocarbamol 750 mg tablet 750 mg PO TID PRN (Reason: pain) Qty: 20 0RF No Action hyoscyamine sulfate [Levsin] 0.125 mg tablet 0.125 mg PO Q6H PRN (Reason: abdominal pain) Qty: 12 0RF ondansetron 4 mg tablet,disintegrating 4 mg PO Q6H PRN (Reason: nausea and vomiting) Qty: 12 0RF atorvastatin 40 mg tablet 40 mg PO DAILY buspirone 10 mg tablet 10 mg PO DAILY dapagliflozin propanediol [Farxiga] 10 mg tablet 10 mg PO DAILY gabapentin 600 mg tablet 600 mg PO Q12H PRN (Reason: pain) hydrochlorothiazide 25 mg tablet 25 mg PO DAILY lisinopril 5 mg tablet 5 mg PO DAILY metoprolol succinate 25 mg tablet extended release 24 hr 25 mg PO DAILY ropinirole 0.25 mg tablet 0.25 mg PO DAILY tizanidine 4 mg tablet 4 mg PO DAILY PRN (Reason: pain) insulin glargine [Lantus Solostar U-100 Insulin] 100 unit/mL (3 mL) insulin pen SUBCUT .meals Rx Instructions: Sliding Scale insulin aspart U-100 100 unit/mL solution 7 unit subcut DAILY Print Language: Bermudian Instructions: Shoulder Pain (ED) Referrals: [facility] [Primary Care Provider] - 1 week Discharge Date/Time: 09/04/23 20:56
[2023-09-04] MEDS: ORPHENADRINE 60 MG/ 2 ML VIAL IM (19:45)
[2023-09-04] MEDS: HYDROCODONE/ACET 5-325 MG TABLET 1 TAB PO (19:45)
== END 2023-09-04 20:56 | disposition home or self-care (01) ==
PROVIDERS: Emergency Provider Emergency Medicine
DX: S46.811A Strain of other muscles, fascia and tendons at shoulder and upper arm level, right arm, initial encounter (principal); M25.511 Pain in right shoulder; X50.9XXA Other and unspecified overexertion or strenuous movements or postures, initial encounter
CPT/HCPCS: 71046; 73030; 96372; 99284

== ENCOUNTER 2024-03-30 03:00 | Emergency (ER) | payer OTHER, SELFPAY ==
[2024-03-30 03:06] VITALS: BP 138/93; PULSE 83; TEMP 36.8; O2SAT 97; BMI 27.2
--- OUTSIDE RECORDS SUMMARY | 2024-03-30 03:13 | XMS_ITS | CCD ---
Author Organization [facility] Care Team Providers Care Roll Carrier Name Role Phone [facility] Primary Care Provider SANDRO Anne Emergency Provider JOSE Reeder Attending Provider DO Godwin Coker Emergency Provider [phone] DO Mohit Carlos Emergency Provider [facility] Primary Care Provider [phone] MD Devon Damico Attending Provider [phone] Vaishnavi [facility] Kiya E Emergency Provider [phone] MACIE Mayorga Emergency Provider [facility] Primary Care Provider MD Devon Damico Attending Provider Vaishnavi [facility] Kiya E Emergency Provider MACIE Mayorga Emergency Provider SANDRO Anne Emergency Provider [facility] Primary Care Provider DO Fredy Brito II Attending Provider [phone] JOSE Reeder Attending Provider [phone] DO Mohit Carlos Emergency Provider [phone] [facility] Primary Care Provider JOSE Reeder Attending Provider Jogre Pompa Attending Unavailable DO Mitch Wallace Referring Provider [facility] Primary Care Provider Spasic, NETTING WEAVER-C Chaim E Attending Provider Spasic, NETTING WEAVER-C Chaim E Attending Provider NON STAFF Primary Care Provider UnavailDO Cyrus Mendez Emergency Provider Odell leegilberto Napiersic, NETTING WEAVER-C Chaim E Primary Care Provider [phone] MD Doug New Emergency Provider Vaishnavi [facility] Kiya Wallace Emergency Provider MD Shemar Grover Admit Provider MD Shemar Grover Attending Provider MD Antonio Nevarez Attending Provider [phone] MD Yoli Imad Other Provider SPASIC, CHAIM E Primary Care Physician Kevin Mishra Attending Unavailable Spasic, Chaim E Admitting Unavailable Spasic, Chaim E Attending Unavailable [facility] Primary Care Unavaila ble Spasic, Chaim E Primary Care Unavailable Shemar Grover Admitting Unavailable Yoli, Russell Consulting Unavailable Antonio Nevarez Attending Unavailable Spasic, Chaim E Admitting Unavailable Spasic, Chaim E Attending Unavailable [facility] Primary Care U navailable Spasic, Chaim E Admitting Unavailable Spasic, Chaim E Attending Unavailable NON STAFF Primary Care Unavailable Spasic, Chaim E Admitting Unavailable Spasic, Chaim E Attending Unavailable NON STAFF Primary Care Unavailable Cyrus Donovan Admitting Unavailable Cyrus Donovan Attending Unavailable oDug New Admitting Unavailable Doug New Attending Unavailable Spasic, Chaim Madison Primary Care Unavailable Clem Gomes Admitting Unavailable Clem Gomes Attending Unavailable [facility] Primary Care U navailable Spasic, Chaim E Admitting Unavailable Spasic, Chaim E Attending Unavailable Spasic, Chaim E Admitting Unavailable Spasic, Chaim E Attending Unavailable Mitch Wallace Referring Unavailable [facility] Primary Care Unavaila Nitesh Rodriguez Admitting Unavailable Nitesh Garcia Attending Unavailable Pb [employer] Unavailable Allergies Allergy Classification Reported Allergen(s) Allergy Type Date of Onset Reaction(s) Facility (2 sources) No Known Medication Allergies; Translations: [No Known Medication Allergies] Propensity to adverse reactions (disorder) [facility] Rep[facility] Medications Current Medications Medication Drug Class(es) Dates Sig (Normalized) Sig (Original) acetaminophen 325 mg / oxyCODONE hydrochloride 5 mg oral tablet (4 sources) Opioid Agonist Start: 12-20-2023 take 1 tablet by mouth every four to six hours Oxycodone-Acetamin ophen (Percocet) 5-325 mg tablet Active 1 - 2 TAB PO EVERY 4-6 HOURS 15 4 December 20, 2023 [id number] 200 actuat albuterol 0.09 mg/actuat metered dose inhaler (20 sources) beta2-Adrenergic Agonist Start: 11-28-2021 Albuterol Sulfate (Proair Hfa) 90 mcg/actuation HFA aerosol inhaler Active 1 INH INHALATION EVERY 4-6 HOURS 8.5 November 28, 2021 12:00am atorvastatin 80 mg oral tablet (20 sources) HMG-CoA Reductase Inhibitor Start: 03-03-2024 take 1 tablet by mouth once daily atorvastatin 80 mg Tab 80 mg = 1 tab(s), Oral, Daily, Refills(s) 0 Start Date: 03/03/24 Status: Ordered Start: 05-09-2021 take 40 mg by mouth once daily Atorvastatin Active 40 MG PO Daily May 09, 2021 1:00am dapagliflozin 10 mg oral tablet (20 sources) Sodium-Glucose Cotransporter 2 Inhibitor Start: 03-03-2024 take 1 tablet by mouth once daily Farxiga 10 mg oral tablet 10 mg = 1 tab(s), Oral, Daily, Refills(s) 0 Start Date: 03/03/24 Status: Ordered Start: 12-15-2021 take 1 tablet by mina th once daily Dapagliflozin Propanediol (Farxiga) 10 mg tablet Active 10 MG PO Daily December 15, 2021 12:00am Start: 08-05-2017 End: 05-05-2020 take 1 tablet by mouth once daily Dapagliflozin Propanediol (Farxiga) 10 mg Tablet Discontinued 5 MG PO Daily August 05, 2017 12:00am May 05, 2020 2:04pm doxycycline hyclate 100 mg oral tablet (16 sources) Tetracycline-class Drug Start: 03-07-2022 take 100 mg by mouth twice daily Doxycycline Hyclate Active 100 MG PO Twice daily 01 03March 07, 2022 12:00am gabapentin 600 mg oral tablet (20 sources) Anti-epileptic Agent Start: 03-03-2024 take 1 tablet by mouth twice daily gabapentin 600 mg Tab 600 mg = 1 tab(s), Oral, BID, # 90 tab(s), Refills(s) 0 Start Date: 03/03/24 Status: Ordered Start: 11-10-2020 take 1 tablet by mina th once daily at bedtime Gabapentin (Neurontin) 600 mg tablet Active 600 MG PO Daily at bedtime November 10, 2020 12:00am hydroCHLOROthiazide 25 mg oral tablet (20 sources) Thiazide Diuretic Start: 11-10-2020 take 25 mg by mouth once daily in the morning Hydrochlorothiazide Active 25 MG PO Every morning November 10, 2020 12:00am insulin aspart, human 100 unt/ml injectable solution (20 sources) Insulin Analog Start: 03-03-2024 insulin aspart 100 units/mL injectable solution See Instructions, Refills(s) 0 Start Date: 03/03/24 Status: Ordered Start: 11-10-2020 Insulin Aspart U-100 Active 0 .ROUTE .COMPLEX November 09, 2020 11:00pm as directed [facility] Start: 11-10-2020 Insulin Aspart U-100 Active 0 .ROUTE .COMPLEX November 10, 2020 12:00am as directed [facility] 3 ml insulin glargine 100 unt/ml pen injector (20 sources) Insulin Analog Start: 03-03-2024 Lantus Solosta r Pen 100 units/mL subcutaneous solution 70 unit(s), SubCutaneous, Bedtime, # 15 mL, Refills(s) 3 Start Date: 03/03/24 Status: Ordered Start: 11-10-2020 Insulin Glargi ne (Lantus Solostar U-100 Insulin) 100 unit/mL (3 mL) insulin pen Active 70 UNIT SUBCUT Daily at bedtime November 10, 2020 12:00am naproxen 500 mg oral tablet (20 sources) Nonsteroidal Anti-inflammatory Drug Start: 12-25-2023 take 1 tablet by mouth twice daily as needed for pain naproxen 500 mg Tab 500 mg = 1 tab(s), Oral, BID, PRN Pain, # 30 tab(s), Refills(s) 0, Pharmacy: [facility]/pharmacy #[id number], 180.3, cm, 12/25/23 14:23:00 EDT, Height/Length Dosing, 88.5, kg, 12/25/23 14:23:00 EDT, Weight Dosing Start Date: 12/25/23 Status: Ordered Start: 11-10-2020 End: 03-07-2022 take 500 mg by mouth every twelve hours Naproxen Discontinued 500 MG PO Q12H November 10, 2020 12:00am March 07, 2022 2:37pm Start: 04-22-2018 End: 09-20-2018 take 500 mg by mouth twice daily at mealtime Naproxen Discontinued 500 MG PO Twice daily April 22, 2018 1:00am September 20, 2018 10:02pm administer with food or milk ondansetron 4 mg disintegrating oral tablet (20 sources) Serotonin-3 Receptor Antagonist Start: 03-03-2024 take 1 tablet by mouth every six hours as needed for nausea ondansetron 4 mg Dis Tab 4 mg = 1 tab(s), Oral, q6hr, PRN Nausea/Vomiting, # 10 tab(s), Refills(s) 0 Start Date: 03/03/24 Status: Ordered Start: 12-19-2023 take 4 mg by mouth e very eight hours Ondansetron Hcl Active 4 MG PO Every 8 hours 15 December 19, 2023 12:00am Start: 12-15-2021 End: 02-28-2022 Ondansetron Hcl Discontinued 4 MG PO every 6 to 8 hours December 15, 2021 12:00am February 28, 2022 8:19am Start: 05-10-2021 End: 03-07-2022 take 4 mg by mouth every eight hours Ondansetron Discontinued 4 MG PO Q8H June 09, 2021 4:17pm March 07, 2022 2:37pm Start: 10-04-2017 End: 04-22-2018 take 1 tablet by mouth every four hours Ondansetron (Zofran Odt) 4 mg Tablet,Disintegrating Discontinued 4 MG PO Q4H October 04, 2017 12:00am April 22, 2018 7:48pm administer first dose 30 minutes before start of emetogenic chemotherapy oxyCODONE hydrochloride 5 mg oral tablet (5 sources) Opioid Agonist Start: 12-19-2023 take 5 mg by mouth twice daily Oxycodone Active 5 MG PO Twice daily 6 3 December 19, 2023 polyethylene glycol 3350 23237 mg powder for oral solution (7 sources) Osmotic Laxative Start: 12-25-2023 take 17 g by mouth once daily Miralax 3350 17 gram packet 17 gm, Oral, Daily, # 30 EA, Refills(s) 0, Pharmacy: [facility]/pharmacy #[id number], 180.3, cm, 12/25/23 14:23:00 EDT, Height/Length Dosing, 88.5, kg, 12/25/23 14:23:00 EDT, Weight Dosing Start Date: 12/25/23 Status: Ordered Start: 12-19-2023 Polyethylene G lycol 3350 (Miralax) 17 gram/dose powder Active 17 GM PO Twice daily December 19, 2023 12:00am mix into 4-8 oz. of any hot/cold/room temp. beverage; use immediately rOPINIRole 0.25 mg oral tablet (20 sources) Nonergot Dopamine Agonist Start: 03-03-2024 take 1 tablet by mouth once daily ropinirole 0.25 mg Tab 0.25 mg = 1 tab(s), Oral, Daily, Refills(s) 0 Start Date: 03/03/24 Status: Ordered Start: 09-04-2021 take 0.25 mg by mout h once daily Ropinirole Active 0.25 MG PO Daily September 04, 2021 12:00am Start: 05-09-2021 End: 06-09-2021 take 0.25 mg by mouth once daily Ropinirole Discontinued 0.25 MG PO Daily May 09, 2021 1:00am June 09, 2021 3:53pm tiZANidine 4 mg oral tablet (20 sources) Central alpha-2 Adrenergic Agonist Start: 05-09-2021 take 1 tablet by mouth every six hours Tizanidine (Zanaflex) 4 mg tablet Active 4 MG PO Every 6 hours May 09, 2021 1:00am 24 hr venlafaxine 150 mg extended release oral capsule (20 sources) Serotonin and Norepinephrine Reuptake Inhibitor Start: 05-09-2021 take 1 capsule by mouth once daily Venlafaxine (Effexor Xr) 150 mg capsule,extended release 24hr Active 150 MG PO Daily May 09, 2021 1:00am Zofran ODT 4 mg Tab-Dis (2 sources) Start: 12-25-2023 take 1 tablet by mouth every eight hours as needed for nausea Zofran ODT 4 mg Tab-Dis 4 mg = 1 tab(s), Oral, q8hr, PRN Nausea/Vomiting, # 12 tab(s), Refills(s) 0, Pharmacy: [facility]/pharmacy #[id number], 180.3, cm, 12/25/23 14:23:00 EDT, Height/Length Dosing, 88.5, kg, 12/25/23 14:23:00 EDT, Weight Dosing Start Date: 12/25/23 Status: Ordered Completed/Discontinued Medications Medication Drug Class(es) Dates Sig (Normalized) Sig (Original) acetaminophen 500 mg oral tablet (20 sources) Start: 10-15-2017 End: 04-22-2018 take 2 tablets by mouth four times daily Acetaminophen (Tylenol Extra Strength) 500 mg Tablet Discontinued 1000 MG PO Four times daily October 15, 2017 12:00am April 22, 2018 7:48pm acetaminophen 325 mg / HYDROcodone bitartrate 5 mg oral tablet (20 sources) Opioid Agonist Start: 03-07-2022 End: 12-20-2023 take 1 tablet by mouth every six hours Hydrocodone-Acetami nophen Discontinued 1 TAB PO Q6H 02 12March 07, 2022 December 20, 2023 1:27pm Start: 12-15-2021 End: 03-07-2022 take 1 tablet by mouth every four to six hours Hydrocodone-Acetaminophen Discontinued 1 TAB PO EVERY 4-6 HOURS 02 12December 15, 2021 March 07, 2022 2:37pm Start: 04-22-2018 End: 09-20-2018 take 1 tablet by mouth every six hours Hydrocodone-Acetaminophen (Pearson) 5-325 mg tablet Discontinued 1 TAB PO Q6H 10 April 22, 2018 September 20, 2018 10:02pm Start: 11-27-2017 End: 12-04-2017 take 1 tablet by mouth every six hours Hydrocodone-Acetaminophen Discontinued 1 TAB PO Q6H 07 12November 27, 2017 December 04, 2017 12:01am Start: 11-07-2017 End: 04-22-2018 take 1 tablet by mouth every four hours Hydrocodone-Acetaminophen (Pearson) 5-325 mg tablet Discontinued 1 TAB PO Q4H November 07, 2017 April 22, 2018 7:48pm Start: 09-29-2017 End: 04-22-2018 take 1 tablet by mouth every four to six hours Hydrocodone-Acetaminophen (Pearson) 5-325 mg Tablet Discontinued 1 TAB PO EVERY 4-6 HOURS September 29, 2017 April 22, 2018 7:48pm azithromycin 250 mg oral tablet (14 sources) Macrolide Antimicrobial Start: 05-14-2022 End: 12-20-2023 Azithromycin Discontinued 0 PO .COMPLEX May 14, 2022 1:00am December 20, 2023 1:26pm take 500 mg today (day 1), then 250 mg for 4 days (days 2-5) benzonatate 200 mg oral capsule (20 sources) Non-narcotic Antitussive Start: 05-14-2022 End: 12-20-2023 take 200 mg by mouth three times daily Benzonatate Discontinued 200 MG PO Three times daily May 14, 2022 1:00am December 20, 2023 1:26pm Start: 11-28-2021 End: 12-15-2021 take 200 mg by mouth three times daily Benzonatate Discontinued 200 MG PO Three times daily November 28, 2021 12:00am December 15, 2021 1:48pm cefTRIAXone 2000 mg injection (20 sources) Cephalosporin Antibacterial Start: 10-03-2018 End: 05-25-2019 take 2 g intravenously every twenty-four hours Ceftriaxone Discontinued 2 GM IV Q24H October 03, 2018 12:00am May 25, 2019 11:43pm cephalexin 500 mg oral capsule (20 sources) Cephalosporin Antibacterial Start: 05-05-2020 End: 05-11-2020 take 1000 mg by mouth twice daily Cephalexin Discontinued 1000 MG PO Twice daily 07 12May 05, 2020 1:00am May 11, 2020 11:56am cyclobenzaprine hydrochloride 10 mg oral tablet (20 sources) Muscle Relaxant Start: 05-26-2019 End: 11-23-2019 take 10 mg by mouth three times daily Cyclobenzaprine Discontinued 10 MG PO Three times daily May 26, 2019 1:00am November 23, 2019 10:56am Start: 09-29-2017 End: 09-20-2018 take 10 mg by mouth every eight hours Cyclobenzaprine Discontinued 10 MG PO Q8H April 22, 2018 1:00am September 20, 2018 10:02pm dexamethasone 0.001 mg/mg / neomycin 0.0035 mg/mg / polymyxin b 10 unt/mg ophthalmic ointment (18 sources) Aminoglycoside Antibacterial, Polymyxin-class Antibacterial, Corticosteroid Start: 02-27-2022 End: 03-07-2022 Neomycin-Polymyxin B-Dexameth (Maxitrol) 3.5 mg/g-10,000 unit/g-0.1 % ointment Discontinued 1 APPLIC EYE-LEFT Three times daily 3.5 7 February 27, 2022 12:00am March 07, 2022 2:37pm space evenly during waking hours docusate sodium 50 mg / sennosides, long-term 8.6 mg oral tablet (20 sources) Start: 05-10-2021 End: 06-09-2021 take 2 tablets by mouth once daily at bedtime Sennosides-Docusate Sodium (Senna Plus) 8.6-50 mg tablet Discontinued 2 TAB PO Daily at bedtime 60 May 10, 2021 1:00am June 09, 2021 3:53pm 0.5 ml dulaglutide 3 mg/ml auto-injector (20 sources) GLP-1 Receptor Agonist Start: 05-09-2021 End: 12-20-2023 Dulaglutide (Trulicity) 1.5 mg/0.5 mL pen injector Discontinued 1.5 MG SUBCUT every week May 09, 2021 1:00am December 20, 2023 1:26pm DULoxetine 30 mg delayed release oral capsule (20 sources) Serotonin and Norepinephrine Reuptake Inhibitor Start: 08-05-2017 End: 05-25-2019 take 1 capsule by mouth once daily Duloxetine (Cymbalta) 30 mg Capsule,Delayed Release(Dr/Ec) Discontinued 30 MG PO Daily August 05, 2017 12:00am May 25, 2019 11:43pm ferrous sulfate 325 mg oral tablet (20 sources) Start: 08-05-2017 End: 10-04-2017 take 325 mg by mouth twice daily Ferrous Sulfate Discontinued 325 MG PO Twice daily August 05, 2017 12:00am October 04, 2017 5:07pm guaiFENesin 400 mg oral tablet (20 sources) Start: 11-28-2021 End: 12-15-2021 take 400 mg by mouth every six hours Guaifenesin Discontinued 400 MG PO Q6H November 28, 2021 12:00am December 15, 2021 1:47pm Insulin Aspart U-100 (Novolog Flexpen U-100 Insulin) 100 unit/mL Insulin Pen (20 sources) Start: 08-05-2017 End: 11-10-2020 Insulin Aspart [...] ml insulin degludec 200 unt/ml pen injector (20 sources) Insulin Analog Start: 08-05-2017 End: 11-10-2020 Insulin Degludec (Tresiba Flextouch U-200) 200 unit/mL (3 mL) Insulin Pen Discontinued 70 UNITS SUBCUT Daily August 05, 2017 12:00am November 10, 2020 7:04pm ketorolac tromethamine 5 mg/ml ophthalmic solution (20 sources) Nonsteroidal Anti-inflammatory Drug, Cyclooxygenase Inhibitor Start: 12-03-2020 End: 05-09-2021 take 1 drop(s) into the eye(s) every six hours Ketorolac (Acular) 0.5 % drops Discontinued 2 DROPS EYE-RIGHT Q6H 5 December 03, 2020 12:00am May 10, 2021 12:49am levoFLOXacin 500 mg oral tablet (20 sources) Quinolone Antimicrobial Start: 09-29-2018 End: 10-03-2018 take 1 tablet by mouth once daily Levofloxacin (Levaquin) 500 mg Tablet Discontinued 500 MG PO Daily September 29, 2018 12:00am October 03, 2018 3:15pm has not even picked up from pharmacy lisinopril 5 mg oral tablet (20 sources) Angiotensin Converting Enzyme Inhibitor Start: 03-04-2024 End: 03-04-2024 lisinopril 5 mg Tab 5 mg = 1 tab(s), Tab, Oral, Start date 03/04/24 9:00:00 AM EDT, 03/03/24 22:09:00 EDT Start Date: 03/04/24 Stop Date: 03/04/24 Status: Completed Start: 03-03-2024 take 1 tablet by mina th once daily lisinopril 5 mg Tab 5 mg = 1 tab(s), Oral, Daily, Refills(s) 0 Start Date: 03/03/24 Status: Ordered Start: 12-20-2023 take 10 mg by mouth once daily Lisinopril Active 10 MG PO Daily December 20, 2023 12:00am Start: 05-05-2020 End: 05-11-2020 take 2.5 mg by mouth once daily Lisinopril Discontinue d 2.5 MG PO Daily May 05, 2020 1:00am May 11, 2020 11:56am 24 hr metoprolol succinate 25 mg extended release oral tablet (2 sources) beta-Adrenergic Jose Juan Start: 03-04-2024 End: 03-04-2024 metoprolol succinate 25 mg ER Tab 12.5 mg = 0.5 tab(s), Tab-ER, Oral, Start date 03/04/24 9:00:00 AM EDT, 03/03/24 22:09:00 EDT Start Date: 03/04/24 Stop Date: 03/04/24 Status: Completed Start: 03-03-2024 metoprolol suc cinate 25 mg ER Tab 12.5 mg = 0.5 tab(s), Oral, Daily, Refills(s) 0 Start Date: 03/03/24 Status: Ordered Multivitamin preparation (20 sources) Start: 11-23-2019 End: 11-10-2020 take 1 tablet by mouth once daily Multivitamin Discontinued 1 TAB PO Daily November 22, 2019 11:00pm November 10, 2020 6:04pm Start: 11-23-2019 End: 11-10-2020 take 1 tablet by mouth once daily Multivitamin Discontinued 1 TAB PO Daily November 23, 2019 12:00am November 10, 2020 7:04pm polymyxin b 95626 unt/ml / trimethoprim 1 mg/ml ophthalmic solution (20 sources) Dihydrofolate Reductase Inhibitor Antibacterial, Polymyxin-class Antibacterial Start: 12-03-2020 End: 05-09-2021 take 1 drop(s) into the eye(s) four times daily Polymyxin B Sulf-Trimethoprim (Polytrim) 10,000 unit- 1 mg/mL drops Discontinued 1 DROPS EYE-RIGHT Four times daily 10 December 03, 2020 12:00am May 10, 2021 12:49am Start: 11-08-2020 End: 12-03-2020 take 1 drop(s) into the eye(s) every six hours Polymyxin B Sulf-Trimethoprim (Polytrim) 10,000 unit- 1 mg/mL drops Discontinued 2 DROPS EYE-LEFT Every 6 hours 10 November 08, 2020 12:00am December 03, 2020 12:37pm For 7 Days. Filled 11/08/2020 0.25 mg, 0.5 mg dose 1.5 ml semaglutide 1.34 mg/ml pen injector (20 sources) Start: 11-08-2020 End: 11-10-2020 Semaglutide (Ozempic) 0.25 mg or 0.5 mg(2 mg/1.5 mL) Pen Injector Discontinued 0.5 MG SUBCUT every week November 08, 2020 12:00am November 10, 2020 7:04pm sertraline 50 mg oral tablet (20 sources) Serotonin Reuptake Inhibitor Start: 05-05-2020 End: 11-10-2020 take 2 tablets by mouth once daily Sertraline (Zoloft) 50 mg tablet Discontinued 100 MG PO Daily May 05, 2020 1:00am November 10, 2020 7:04pm sulfamethoxazole 800 mg / trimethoprim 160 mg oral tablet (20 sources) Dihydrofolate Reductase Inhibitor Antibacterial, Sulfonamide Antimicrobial Start: 11-23-2019 End: 05-05-2020 take 1 tablet by mouth every twelve hours Sulfamethoxazole- Trimethoprim (Bactrim Ds) 800-160 mg tablet Discontinued 1 TAB PO Every 12 hours 20 November 23, 2019 12:00am May 05, 2020 2:04pm Problems Active Problems Problem Classification Problem Date Documented Da te Episodic/Chronic Abdominal pain (20 sources) Abdominal pain; Translations: [Unspecified abdominal pain] Onset: 07-18-2023 05-10-2021 Episodic Acute and unspecified renal failure (20 sources) Injury of kidney; Translations: [Acute kidney failure, unspecified] Onset: 03-03-2024 09-04-2021 Episodic Acute bronchitis (14 sources) Acute bacterial bronchitis; Translations: [Acute bronchitis due to other specified organisms] 05-14-2022 Episodic Bacterial infection; unspecified site (20 sources) Bacteremia; Translations: [Bacteremia] 05-07-2020 Episodic Cancer of kidney and renal pelvis (20 sources) Renal cell carcinoma; Translations: [Malignant neoplasm of unspecified kidney, except renal pelvis] Onset: 03-03-2024 05-27-2020 Chronic Coagulation and hemorrhagic disorders (20 sources) Platelet count below reference range; Translations: [Thrombocytopenia, unspecified] 05-27-2020 Chronic Conditions associated with dizziness or vertigo (20 sources) Dizziness; Translations: [Dizziness and giddiness] 11-10-2020 Episodic Congestive heart failure; nonhypertensive (3 sources) Unspecified diastolic (congestive) heart failure; Translations: [Diastolic heart failure] Onset: 01-24-2023 Chronic Diabetes mellitus with complications (20 sources) Hyperglycemia due to diabetes mellitus; Translations: [Type 2 diabetes mellitus with hyperglycemia] Onset: 04-25-2023 09-04-2021 Chronic Diabetes mellitus without complication (2 sources) Type 2 diabetes mellitus without complication; Translations: [Type 2 diabetes mellitus without complications] Onset: 03-03-2024 Chronic Diabetes mellitus without complication (1 source) Hyperglycemia; Translations: [Hyperglycemia, unspecified] Onset: 03-03-2024 Episodic Diseases of white blood cells (20 sources) Leukopenia; Translations: [Decreased white blood cell count, unspecified] 05-27-2020 Chronic Disorders of lipid metabolism (1 source) Mixed hyperlipidemia; Translations: [Mixed hyperlipidemia] Onset: 10-17-2023 Chronic E Codes: Adverse effects of medical drugs (5 sources) Adverse reaction to drug; Translations: [Adverse effect of unspecified drugs, medicaments and biological substances, initial encounter] 12-19-2023 Episodic Fluid and electrolyte disorders (20 sources) Hyponatremia; Translations: [Hypo-osmolality and hyponatremia] 05-27-2020 Episodic Gastrointestinal hemorrhage (20 sources) Rectal hemorrhage; Translations: [Hemorrhage of anus and rectum] 12-27-2021 Episodic Genitourinary symptoms and ill-defined conditions (20 sources) Blood in urine; Translations: [Hematuria, unspecified] 05-05-2020 Episodic Heart valve disorders (20 sources) Endocarditis; 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, unspecified] 05-09-2020 Chronic Inflammation; infection of eye (except that caused by tuberculosis or sexually transmitteddisease) (20 sources) Acute infectious conjunctivitis; Translations: [Unspecified acute conjunctivitis, left eye] 11-08-2020 Episodic Inflammatory conditions of male genital organs (20 sources) Abscess of prostate; Translations: [Abscess of prostate] 01-27-2020 Episodic Nausea and vomiting (20 sources) Nausea and vomiting; Translations: [Nausea with vomiting, unspecified] 05-10-2021 Episodic Nonspecific chest pain (2 sources) Other chest pain; Translations: [Chest pain] Onset: 01-24-2023 Episodic Nutritional deficiencies (1 source) Vitamin D deficiency, unspecified; Translations: [Vitamin D deficiency, unspecified] Onset: 10-17-2023 Chronic Other circulatory disease (20 sources) Low blood pressure; Translations: [Hypotension, unspecified] 05-07-2020 Episodic Other connective tissue disease (20 sources) Cramp in lower leg ; Translations: [Cramp and spasm] 01-19-2021 Episodic Other gastrointestinal disorders (20 sources) Constipation; Translations: [Constipation, unspecified] 05-10-2021 Episodic Other gastrointestinal disorders (4 sources) History of pancreatitis; Translations: [Personal history of other diseases of the digestive system] 12-20-2023 Episodic Other gastrointestinal disorders (1 source) Constipation, unspecified; Translations: [Constipation, unspecified] Onset: 12-25-2023 Episodic Other injuries and conditions due to external causes (20 sources) Injury of right foot; Translations: [Unspecified injury of right foot, initial encounter] 10-19-2020 Episodic Other injuries and conditions due to external causes (11 sources) Injury of external auditory canal; Translations: [Unspecified injury of ear, initial encounter] 07-01-2022 Episodic Other liver diseases (20 sources) Elevated liver enzymes level; Translations: [Abnormal levels of other serum enzymes] 05-27-2020 Episodic Other lower respiratory disease (20 sources) Solitary nodule of lung; Translations: [Solitary pulmonary nodule] 09-29-2018 Episodic Other nervous system disorders (20 sources) Peripheral nerve disease ; Translations: [Polyneuropathy, unspecified] 09-21-2018 Chronic Other nervous system disorders (1 source) Polyneuropathy, unspecified; Translations: [Polyneuropathy, unspecified] Onset: 07-16-2023 Chronic Other upper respiratory infections (20 sources) Viral upper respiratory tract infection; Translations: [Acute upper respiratory infection, unspecified] 11-28-2021 Episodic Pancreatic disorders (not diabetes) (20 sources) Pancreatitis; Translations: [Acute pancreatitis without necrosis or infection, unspecified] Onset: 12-22-2023 12-15-2021 Episodic Residual codes; unclassified (20 sources) Absent kidney; Translations: [Acquired absence of kidney] 05-27-2020 Episodic Residual codes; unclassified (2 sources) Tobacco user; Translations: [Tobacco use] Onset: 03-03-2024 Episodic Septicemia (except in labor) (20 sources) Sepsis; Translations: [Sepsis, unspecified organism] 05-27-2020 Episodic Skin and subcutaneous tissue infections (20 sources) Cellulitis; Translations: [Cellulitis, unspecified] 11-23-2019 Episodic Spondylosis; intervertebral disc disorders; other back problems (4 sources) Low back pain; Translations: [Low back pain] 12-20-2023 Episodic Sprains and strains (20 sources) Strain of back muscle; Translations: [Strain of muscle, fascia and tendon of lower back, initial encounter] 05-26-2019 Episodic Substance-related disorders (2 sources) Smoker 12-25-2023 Chronic Comment on above: Added secondary to d ocumentation in Social History. Superficial injury; contusion (20 sources) Corneal abrasion; Translations: [Injury of conjunctiva and corneal abrasion without foreign body, unspecified eye, initial encounter] 12-03-2020 Episodic Unclassified (1 source) Other low back pain; Translations: [Other low back pain] Onset: 12-20-2023 Unclassified (1 source) Low back pain, unspecified; Translations: [Low back pain, unspecified] Onset: 12-20-2023 Urinary tract infections (20 sources) Urinary tract infectious disease; Translations: [Urinary tract infection, site not specified] 09-29-2018 Episodic Viral infection (20 sources) Evaluation finding; Translations: [Gammaherpesviral mononucleosis without complication] 05-27-2020 Episodic Past or Other Problems Problem Classification Problem Date Documented Da te Episodic/Chronic Other screening for suspected conditions (not mental disorders or infectious disease) (20 sources) Increased lactic acid level; Translations: [Other specified abnormal findings of blood chemistry] Onset: 07-16-2023 05-07-2020 Episodic Results Test Name Value Interpretation Reference Range Facility CHEMISTRYOrdered By: Lab ROP User on 03-04-2024 Glucose [Mass/Vol] 120 mg/dL High 55 - 99 mg/dL [facility] [place] Sub[place] Comment on above: Result Comment: Tino engle RN/ POC Device SN [id number] 1 Invalid Interpretation Code [facility] POC Subsection POC User ID [id number] 1 Invalid Interpretation Code [facility] POC Subsection POC Username TIMOTHYABJW ANDERSON Invalid Interpretation Code [facility] POC Subsection Glucose [Mass/Vol] 197 mg/dL High 55 - 99 mg/dL [facility] POC Subsection Comment on above: Result Comment: Tino CASTAÑEDA POC Device SN [id number] 1 Invalid Interpretation Code [facility] POC Subsection POC User ID [id number] 1 Invalid Interpretation Code [facility] POC Subsection POC Username TIMOTHYABMONICA JW Invalid Interpretation Code [facility] [place] Subsection CHEMISTRYOrdered By: SYSTEM SYSTEM on 03-04-2024 Anion gap [Moles/Vol] 11 mmol/L Normal 6 - 16 mEq/L [facility] Calcium [Mass/Vol] 9.4 mg/dL Normal 8.9 - 11. 1 mg/dL [facility] Chloride [Moles/Vol] 105 mmol/L Normal 101 - 1 11 mmol/L [facility] CO2 [Moles/Vol] 27 mmol/L Normal 21 - 31 mmol/L [facility] Creatinine [Mass/Vol] 1.1 mg/dL Normal 0.5 - 1.3 mg/dL [facility] eGFR 79 mL/min/1.73 m2 Normal >=59mL/min /1.73 m2 [facility] Glucose [Mass/Vol] 245 mg/dL High 55 - 199 mg/dL [facility] Potassium [Moles/Vol] 4.0 mmol/L Normal 3.5 - 5.3 mmol/L [facility] Sodium [Moles/Vol] 139 mmol/L Normal 135 - 145 mmol/L [facility] Urea nitrogen [Mass/Vol] 21 mg/dL Normal 5 - 21 mg/dL [facility] Urea nitrogen/Creatinine [Mass ratio] 19 mg/mg Normal 10 - 20 [facility] Capillary Glucose POCon 02-11 Glucose [Mass/Vol] 120 mg/dL High 55-99 [facility] Comment on above: Result Comment: Tino engle RN/ Performed By: #### 2 [id number] #### [facility] [address] [id number] HEMATOLOGYOrdered By: SYSTEM SYSTEM on 03-04-2024 Basophils/100 WBC (Bld) 0.9 % Normal 0.0 - 2.0 % [facility]e Basophils/Leukocytes Auto (Bld) [Pure # fraction] 0.1 E9/L Normal 0.0 - 0.2 E9/L [facility] Eosinophils (Bld) [#/Vol] 0.3 E9/L Normal 0.0 - 0.5 E9/L [facility] Eosinophils/100 WBC (Bld) 3.5 % Normal 0.0 - 8.0 % [facility]e Erythrocyte distribution width (RBC) [Ratio] 13.8 % Normal 10.9 - 14.2 % [facility] Hematocrit (Bld) [Volume fraction] 43.8 % Normal 37.7 - 49.0 % [facility] Hemoglobin (Bld) [Mass/Vol] 15.3 g/dL Normal 13.5 - 17.5 gm/dL [facility] Lymphocytes (Bld) [#/Vol] 3.4 E9/L Normal 1.0 - 4.0 E9/L [facility] Lymphocytes/100 WBC (Bld) 42.0 % Normal 14.0 - 50.0 % [facility]e MCH (RBC) [Entitic mass] 30.6 pg Normal 27.0 - 34.0 pg [facility] Heme MCHC (RBC) [Mass/Vol] 35.0 g/dL Normal 31.4 - 36.0 gm/dL [facility] MCV (RBC) [Entitic vol] 87.4 fL Normal 80.0 - 100.0 fL [facility] Monocytes (Bld) [#/Vol] 0.5 E9/L Normal 0.2 - 1.0 E9/L [facility] Monocytes/100 WBC (Bld) 6.0 % Normal 4.0 - 14.0 % [facility] Neutrophils (Bld) [#/Vol] 3.9 E9/L Normal 2.0 - 7.5 E9/L [facility] Neutrophils/100 WBC (Bld) 47.6 % Normal 36.0 - 75.0 % [facility] Platelet mean volume (Bld) [Entitic vol] 8.8 fL Normal 6.4 - 10.8 fL [facility] Platelets (Bld) [#/Vol] 193.0 E9/L Normal 150.0 - 500.0 E9/L [facility] RBC (Bld) [#/Vol] 5.0 E12/L Normal 4.3 - 5.9 E12/L [facility] WBC corrected for nucl RBC Auto (Bld) [#/Vol] 8.1 E9/L Normal 4.0 - 11.0 E9/L [facility] Inpatient Clinical Summaryon 03-04-2024 Inpatient Clinical Summary Inpatient Clinical Summary [address] [address] Clinical Summary Person Information: Name: GENE BARAHONA Age: 53 Years : 1970 Sex: Male PCP: CHAIM REEDER CNP Marital Status: Phone: [phone] Race: White Ethnicity: Non- or Language: Kazakh Visit Id: Visit Reason: Nausea; Arm pain-swelling; Chest pain; CP/DOWN LT ARM AND FLUSHED Speciality: Acuity: Enc Type: Observation Med Service: Medical Arrival: 03/03/2024 13:37:25 Discharge: Dispo Type: Admitted as IP to this Hosp Address: [address] [place] [id number] Provider Notes: Diagnosis: 1:Acute chest pain; 2:RYAN (acute kidney injury); 3:Acute hyperglycemia; 4:Diastolic heart failure; 5:Diabetes; 6:Tobacco abuse; 7:Renal cell carcinoma Problems Active Diastolic heart failure Diabetes Tobacco abuse Smoker Smoking Status: Current Every Day Smoker Functional Status: Sensory Deficits: History of Falls: Mobility Assistance Prior to Admission: Independent ADLs: Independent Current Level of Assistance for Self-Care/Mobility: Cognitive Status: Oriented x 3 Allergies No Known Medication Allergies Measurements: Height: 180.34 cm Weight: 89.1 kg Blood Pressure: 115 mmHg / 67 mmHg BMI: 27.58 kg/m2 Procedures No Procedures Documented Immunizations No Immunizations Documented This Visit Final Med List: atorvastatin (atorvastatin 80 mg Tab) 1 Tablets By Mouth every day. dapagliflozin (Farxiga 10 mg oral tablet) 1 Tablets By Mouth every day. gabapentin (gabapentin 600 mg Tab) 1 Tablets By Mouth 2 times a day. insulin aspart (insulin aspart 100 units/mL injectable solution) insulin glargine (Lantus Solostar Pen 100 units/mL subcutaneous solution) 70 Units Subcutaneous at bedtime. lisinopril (lisinopril 5 mg Tab) 1 Tablets By Mouth every day. metoprolol (metoprolol succinate 25 mg ER Tab) 0.5 Tablets By Mouth every day. ondansetron (ondansetron 4 mg Dis Tab) 1 Tablets By Mouth every 6 hours as needed Nausea/Vomiting. ondansetron (Zofran ODT 4 mg Tab-Dis) 1 Tablets By Mouth every 8 hours as needed Nausea/Vomiting. Refills: 0. polyethylene glycol 3350 (Miralax 3350 17 gram packet) 17 Gram By Mouth every day. Refills: 0. ropinirole (ropinirole 0.25 mg Tab) 1 Tablets By Mouth every day. Care Team Members: Attending Physician: Nitesh Garcia DO Consulting Physician: Referring Physician: Follow up: With: Address: When: CHAIM REEDER [address] [place] [address] [facility] (1) With: Address: When: Rema KOHLI, Pb Foster, CAR Within 1 to 2 weeks Comments: Call for followup appointment. Needs outpatient stress test Patient Education Information: Nonspecific Chest Pain, Adult Normal [facility] Inpatient Patient Summaryon 03-04-2024 Inpatient Patient Summary Inpatient Patient Summary GENE BARAHONA :1970 Visit Date:03/03/2024 Inpatient Discharge Instructions Your Care Team Admitting Physician - OJUKWU MD, Lorena Reason for Your Visit CP, left arm pain Your Diagnosis Acute chest pain RYAN (acute kidney injury) Acute hyperglycemia Diastolic heart failure Diabetes Tobacco abuse Renal cell carcinoma Arm pain-swelling Chest pain Nausea Tests Performed Echo Transthoracic Complete XR Chest Single View This Is Your Medications List atorvastatin (atorvastatin 80 mg Tab) dapagliflozin (Farxiga 10 mg oral tablet) gabapentin (gabapentin 600 mg Tab) insulin aspart (insulin aspart 100 units/mL injectable solution) insulin glargine (Lantus Solostar Pen 100 units/mL subcutaneous solution) lisinopril (lisinopril 5 mg Tab) metoprolol (metoprolol succinate 25 mg ER Tab) ondansetron (Zofran ODT 4 mg Tab-Dis) ondansetron (ondansetron 4 mg Dis Tab) polyethylene glycol 3350 (Miralax 3350 17 gram packet) ropinirole (ropinirole 0.25 mg Tab) [Image Removed: STOP]Stop taking these medications busPIRone (busPIRone 10 mg Tab) cetirizine (cetirizine 10 mg Tab) naproxen (naproxen 500 mg Tab) Discharge Vitals Temperature (Oral) 36.4 ???C Heart Rate (Monitored) 74 Respiratory Rate 16 Blood Pressure 115/67 Height 180.34 cm Weight 89.1 kg BMI 27.58 What to do next Instructions From Your Doctor Event Name Event Result Pending Diagnostic Test Results None Discharge Instructions Please return to ER if symptoms change or worsen. Please follow-up with cardiology as instructed. Please make sure you are stress test gets scheduled as outpatient. New Follow Up Appointments after Discharge Follow Up with CHAIM REEDER When: In 0 days Where: [address] [place] [address]- [employer] (1) Follow Up with Rema KOHLI, Pb Foster, LETA When: Within 1 to 2 weeks Comments: Call for followup appointment. Needs outpatient stress test Where: Medications What How Much When Instructions Next Dose Unchanged atorvastatin (atorvastatin 80 mg Tab) 1 Tablets By Mouth Every day 03/05 @ 0900am Unchanged dapagliflozin (Farxiga 10 mg oral tablet) 1 Tablets By Mouth Every day 03/05 @ 0900am Unchanged gabapentin (gabapentin 600 mg Tab) 1 Tablets By Mouth 2 times a day 03/04 @ 0900pm Unchanged insulin aspart (insulin aspart 100 units/ mL injectable solution) See instructions Unchanged insulin glargine (Lantus Solostar Pen 100 units/ mL subcutaneous solution) 70 Units Subcutaneous At bedtime 03/04 @ 0900pm Unchanged lisinopril (lisinopril 5 mg Tab) 1 Tablets By Mouth Every day 03/05 @ 0900am Unchanged metoprolol (metoprolol succinate 25 mg ER Tab) 0.5 Tablets By Mouth Every day 03/05 @ 0900am Unchanged ondansetron (ondansetron 4 mg Dis Tab) 1 Tablets By Mouth Every 6 hours as needed for Nausea/Vomiting as needed Unchanged ondansetron (Zofran ODT 4 mg Tab-Dis) 1 Tablets By Mouth Every 8 hours as needed for Nausea/Vomiting as needed Unchanged polyethylene glycol 3350 (Miralax 3350 17 gram packet) 17 Gram By Mouth Every day 03/05 @ 0900am Unchanged ropinirole (ropinirole 0.25 mg Tab) 1 Tablets By Mouth Every day 03/05 @ 0900am What How Much When Comments Stop Taking busPIRone (busPIRone 10 mg Tab) 1 Tablets By Mouth 2 times a day TAKE 1 TABLET BY MOUTH TWICE A DAY FOR 30 DAYS Stop Taking cetirizine (cetirizine 10 mg Tab) 1 Tablets By Mouth Every day Stop Taking naproxen (naproxen 500 mg Tab) 1 Tablets By Mouth 2 times a day as needed for Pain Test Results CBC BMP WBC: 8.1 E9/L (03/04/24 05:51:00) Glucose Lvl: 245 mg/dL High (03/04/24 05:51:00) RBC: 5 E12/L (03/04/24 05:51:00) BUN: 21 mg/dL (03/04/24 05:51:00) HGB: 15.3 gm/dL (03/04/24 05:51:00) Creatinine: 1.1 mg/dL (03/04/24 05:51:00) Hct: 43.8 % (03/04/24 05:51:00) BUN/Creat Ratio: 19 (03/04/24 05:51:00) MCV: 87.4 fL (03/04/24 05:51:00) Sodium Lvl: 139 mmol/L (03/04/24 05:51:00) MCH: 30.6 pg (03/04/24 05:51:00) Potassium Lvl: 4 mmol/L (03/04/24 05:51:00) MCHC: 35 gm/dL (03/04/24 05:51:00) Chloride: 105 mmol/L (03/04/24 05:51:00) RDW: 13.8 % (03/04/24 05:51:00) CO2: 27 mmol/L (03/04/24 05:51:00) Platelet: 193 E9/L (03/04/24 05:51:00) AGAP: 11 mEq/L (03/04/24 05:51:00) MPV: 8.8 fL (03/04/24 05:51:00) Calcium Lvl: 9.4 mg/dL (03/04/24 05:51:00) Allergies No Known Medication Allergies Problems Ongoing - Any problem that you are currently receiving treatment for. Diabetes Diastolic heart failure Smoker Tobacco abuse Education Materials Nonspecific Chest Pain, Adult Chest pain is an uncomfortable, tight, or painful feeling in the chest. The pain can feel like a crushing, aching, or squeezing pressure. A person can feel a burning or tingling sensation. Chest pain can also be felt in your back, neck, jaw, shoulder, or arm. This pain can be worse when you move, sneeze, or take a deep nedra (more content not included)... Normal [facility] Inpatient Patient Summary Inpatient Patient Summary [address] [address] Patient Discharge Instructions PERSON INFORMATION Name: GENE BARAHONA Date of : 1970 Current Date: 03/04/2024 13:04:35 PHYSICIANS Admitting Physician: Lorena HARDY MD Primary Care Physician: CHAIM REEDER CNP PCP Comment: Discharge Diagnosis: 1:Acute chest pain; 2:RYAN (acute kidney injury); 3:Acute hyperglycemia; 4:Diastolic heart failure; 5:Diabetes; 6:Tobacco abuse; 7:Renal cell carcinoma Condition at Discharge: Improved GENE BARAHONA has been given the following list of follow-up instructions, prescriptions, and patient education materials: PATIENT FOLLOW-UP INFORMATION Diet: Discharge Activity: Discharge Restrictions: Wound Care Instructions: Remove Your Dressing In Days Call Your Doctor For: IF UNABLE TO CONTACT YOUR PHYSICIAN AND YOU FEEL IT IS AN EMERGENCY, GO TO THE NEAREST EMERGENCY ROOM OR CALL 911 Home Treatment: Devices/Equipment: Blood glucose monitor Special Services: Additional Instructions: Please return to ER if symptoms change or worsen. Please follow-up with cardiology as instructed. Please make sure you are stress test gets scheduled as outpatient. Primary Care Physician to provide the following pending test results: None Follow up: With: Address: When: CHAIM REEDER [address] [place] [address] [facility] (1) With: Address: When: Rema KOHLI, Pb Foster, CAR Within 1 to 2 weeks Comments: Call for followup appointment. Needs outpatient stress test In the event that this physician does not participate in your insurance network, please consult with your insurance company to find a nearby participating provider. Comment: ANA CRISTINA Carreno ROBERT H, have received the attached patient education materials/instructions and have verbalized understanding: Patient Signature __ Date Clinican/Nurse Signature Date HERE ARE THE MEDICATION CHANGES THAT OCCURRED DURING YOUR HOSPITAL STAY Medications to Continue with No Changes Other Medications atorvastatin (atorvastatin 80 mg Tab) 1 Tablets By Mouth every day. Last Dose: N ext Dose: dapagliflozin (Farxiga 10 mg oral tablet) 1 Tablets By Mouth every day. Last Dose: N ext Dose: gabapentin (gabapentin 600 mg Tab) 1 Tablets By Mouth 2 times a day. Last Dose: N ext Dose: insulin aspart (insulin aspart 100 units/mL injectable solution) Last Dose: N ext Dose: insulin glargine (Lantus Solostar Pen 100 units/mL subcutaneous solution) 70 Units Subcutaneous at bedtime. Last Dose: N ext Dose: lisinopril (lisinopril 5 mg Tab) 1 Tablets By Mouth every day. Last Dose: N ext Dose: metoprolol (metoprolol succinate 25 mg ER Tab) 0.5 Tablets By Mouth every day. Last Dose: N ext Dose: ondansetron (ondansetron 4 mg Dis Tab) 1 Tablets By Mouth every 6 hours as needed Nausea/Vomiting. Last Dose: N ext Dose: ondansetron (Zofran ODT 4 mg Tab-Dis) 1 Tablets By Mouth every 8 hours as needed Nausea/Vomiting. Refills: 0. Last Dose: N ext Dose: polyethylene glycol 3350 (Miralax 3350 17 gram packet) 17 Gram By Mouth every day. Refills: 0. Last Dose: N ext Dose: ropinirole (ropinirole 0.25 mg Tab) 1 Tablets By Mouth every day. Last Dose: N ext Dose: No Longer Take the Following Medications busPIRone (busPIRone 10 mg Tab) 1 Tablets By Mouth 2 times a day. TAKE 1 TABLET BY MOUTH TWICE A DAY FOR 30 DAYS. cetirizine (cetirizine 10 mg Tab) 1 Tablets By Mouth every day. naproxen (naproxen 500 mg Tab) 1 Tablets By Mouth 2 times a day as needed Pain. Refills: 0. Comment: MEDICATION LIST PROVIDED FOR YOU IS A LIST OF YOUR CURRENT MEDICATIONS. PLEASE CARRY THIS WITH YOU AT ALL TIMES. atorvastatin (atorvastatin 80 mg Tab) 1 Tablets By Mouth every day. dapagliflozin (Farxiga 10 mg oral tablet) 1 Tablets By Mouth every day. gabapentin (gabapentin 600 mg Tab) 1 Tablets By Mouth 2 times a day. insulin aspart (insulin aspart 100 units/mL injectable solution) insulin glargine (Lantus Solostar Pen 100 units/mL subcutaneous solution) 70 Units Subcutaneous at bedtime. lisinopril (lisinopril 5 mg Tab) 1 Tablets By Mouth every day. metoprolol (metoprolol succinate 25 mg ER Tab) 0.5 Tablets By Mouth every day. ondansetron (ondansetron 4 mg Dis Tab) 1 Tablets By Mouth every 6 hours as needed Nausea/Vomiting. onda (more content not included)... Normal [facility] Interdisciplinary Note - Guru e Manageron 03-04-2024 Interdisciplinary Note - Egg And Spice Mixer Interdisciplinary Note - Egg And Spice Mixer CRM to room 320 Patient is awake, alert and oriented. Patient drove him self here. Patient is from home with his spouse. Patient verified PCP, DME and insurance. Patient is observation for CP. Patient is assigned to Dr paster, see notes. Patient has cardiology on case. Per Patient he will f/u with them as an OP. He was getting ECHO today. Patient declined any DC needs. Patient is a possible DC today. CRM following, CRM provided contact info. Amie [facility] Comment on above: Result Comment: Elec tronically Signed By: Sheree Chavez\.br\Date and Time Signed: 03/04/24 12:29 EDT CHEMISTRYOrdered By: Lab ROP User on 03-03-2024 Glucose [Mass/Vol] 340 mg/dL High 55 - 99 mg/dL [facility] [place] Subsection Comment on above: Result Comment: Tino engle RN/ POC Device SN [id number] Invalid Interpretation Code [facility] POC Subsection POC User ID [id number] 1 Invalid Interpretation Code [facility] P[place] Subsection POC Username [email or web address] MCCLENDON Invalid Interpretation Code [facility] [place] Subsection CHEMISTRYOrdered By: SYSTEM SYSTEM on 03-03-2024 Troponin HS 3.30 pg/mL Low 15.90 - 38.40 pg/mL [facility] Comment on above: Interpretive Data: T he 95% CI (Confidence Interval) PPV (Positive Predictive Value) for myocardial infarction in females is 38 pg/mL, in males 51 pg/mL. The results should be used in conjunction with clinical conditions of myocardial infarction. (Access High Sensitivity Troponin I Instructions For Use, Mariano Cleveland, December 2017) Anion gap [Moles/Vol] 12 mmol/L Normal 6 - 16 mEq/L [facility] Calcium [Mass/Vol] 9.3 mg/dL Normal 8.9 - 11. 1 mg/dL [facility] Chloride [Moles/Vol] 105 mmol/L Normal 101 - 1 11 mmol/L [facility] Chem CO2 [Moles/Vol] 26 mmol/L Normal 21 - 31 mmol/L [facility] Chem Creatinine [Mass/Vol] 1.5 mg/dL High 0.5 - 1.3 mg/dL [facility] Chem eGFR 55 mL/min/1.73 m2 Low >=59mL/min /1.73 m2 [facility] Chem Glucose [Mass/Vol] 344 mg/dL High 55 - 199 mg/dL [facility] Potassium [Moles/Vol] 4.4 mmol/L Normal 3.5 - 5.3 mmol/L [facility] Chem Sodium [Moles/Vol] 139 mmol/L Normal 135 - 145 mmol/L [facility] Chem Troponin HS 3.40 pg/mL Low 15.90 - 38.40 pg/mL [facility] Comment on above: Interpretive Data: T milton 95% CI (Confidence Interval) PPV (Positive Predictive Value) for myocardial infarction in females is 38 pg/mL, in males 51 pg/mL. The results should be used in conjunction with clinical conditions of myocardial infarction. (Access High Sensitivity Troponin I Instructions For Use, Mariano Cleveland, December 2017) Urea nitrogen [Mass/Vol] 22 mg/dL High 5 - 21 mg/dL [facility] Urea nitrogen/Creatinine [Mass ratio] 15 mg/mg Normal 10 - 20 [facility] Chem COAGULATIONOrdered By: Gordon Narayanan on 03-03-2024 aPTT Coag (PPP) [Time] 35.0 s Normal 25.1 - 36.5 second(s) [facility] Coag Comment on above: Interpretive Data: P arameter 15 days - 4 weeks 1 - 5 months 6 - 11 months 1 - 5 years 6 - 10 years 11 - 17 years PTT Mean: 35.4 (27.6-45.6) Mean: 33.5 (24.8-40.7) Mean: 32.4 (25.1-40.7) Mean: 31.6 (24.0-39.2) Mean: 31.6 (26.9-38.7) Mean: 31.0 (24.6-38.4) Pediatric Reference ranges were obtained from a study by Tam Sinclair et al. prepared from 1437 samples obtained at 7 different centers using the same coagulation reagent and instrumentation as [facility]. Currently there are no coagulation studies available worldwide for children to 14 days, and no normal ranges. Heparin therapeutic range (represented by Anti-Factor Xa activity of 0.2 - 0.4 U/mL) corresponds to PTT of 56.6 - 109.0 sec. INR Coag (PPP) [Relative time] 0.89 {INR} Invalid Interpretation Code [facility] Comment on above: Interpretive Data: I NR results are specifically intended to assess patients stabilized on long-term Anticoagulation therapy suggested INR s Less Intensive Anticoagulation 2.0 3.0 Conventional Range 3.0 4.5 PT Coag (PPP) [Time] 9.9 s Normal 9.4 - 1 2.5 second(s) [facility] Comment on above: Interpretive Data: 1 5 days - 4 weeks 1 - 5 months 6 -11 months 1-5 years 6-10 years 11 -17 years Mean: 11.2 (9.5-12.6) Mean: 11.0 (9.7-12.8) Mean: 11.0 (9.8-13.0) Mean: 11.3 (9.9-13.4) Mean: 11.7 (10.0-14.6) Mean: 11.8 (10.0 - 14.1) Pediatric Reference ranges were obtained from a study by Tam Sinclair et al. prepared from 1437 samples obtained at 7 different centers using the same coagulation reagent and instrumentation as [facility]. Currently there are no coagulation studies available worldwide for children to 14 days, and no normal ranges. HEMATOLOGYOrdered By: SYSTEM SYSTEM on 03-03-2024 Basophils/100 WBC (Bld) 0.9 % Normal 0.0 - 2.0 % Rem[facility] Heme Basophils/Leukocytes Auto (Bld) [Pure # fraction] 0.1 E9/L Normal 0.0 - 0.2 E9/L [facility] Heme Eosinophils (Bld) [#/Vol] 0.2 E9/L Normal 0.0 - 0.5 E9/L [facility] Heme Eosinophils/100 WBC (Bld) 2.6 % Normal 0.0 - 8.0 % [facility] Heme Erythrocyte distribution width (RBC) [Ratio] 13.4 % Normal 10.9 - 14.2 % [facility] Heme Hematocrit (Bld) [Volume fraction] 44.0 % Normal 37.7 - 49.0 % [facility]e Hemoglobin (Bld) [Mass/Vol] 15.5 g/dL Normal 13.5 - 17.5 gm/dL [facility]e Lymphocytes (Bld) [#/Vol] 2.1 E9/L Normal 1.0 - 4.0 E9/L [facility] Heme Lymphocytes/100 WBC (Bld) 25.6 % Normal 14.0 - 50.0 % [facility] Heme MCH (RBC) [Entitic mass] 30.8 pg Normal 27.0 - 34.0 pg Remisol Heme MCHC (RBC) [Mass/Vol] 35.3 g/dL Normal 31.4 - 36.0 gm/dL [facility] Heme MCV (RBC) [Entitic vol] 87.3 fL Normal 80.0 - 100.0 fL [facility] Heme Monocytes (Bld) [#/Vol] 0.5 E9/L Normal 0.2 - 1.0 E9/L [facility] Heme Monocytes/100 WBC (Bld) 6.5 % Normal 4.0 - 14.0 % Remisol Heme Neutrophils (Bld) [#/Vol] 5.4 E9/L Normal 2.0 - 7.5 E9/L Remisol Heme Neutrophils/100 WBC (Bld) 64.4 % Normal 36.0 - 75.0 % Remisol Heme Platelet 203.0 E9/L Normal 150.0 - 500.0 E9/L Remisol Heme Platelet mean volume (Bld) [Entitic vol] 8.3 fL Normal 6.4 - 10.8 fL Remisol Heme RBC (Bld) [#/Vol] 5.0 E12/L Normal 4.3 - 5.9 E12/L Remisol Heme WBC corrected for nucl RBC Auto (Bld) [#/Vol] 8.4 E9/L Normal 4.0 - 11.0 E9/L Remisol Heme CHEMISTRYOrdered By: SYSTEM SYSTEM on 12-25-2023 Troponin HS 3.50 pg/mL Low 15.90 - 38.40 pg/mL Remisol Chem Comment on above: Interpretive Data: T he 95% CI (Confidence Interval) PPV (Positive Predictive Value) for myocardial infarction in females is 38 pg/mL, in males 51 pg/mL. The results should be used in conjunction with clinical conditions of myocardial infarction. (Access High Sensitivity Troponin I Instructions For Use, Mariano Cleveland, December 2017) Albumin [Mass/Vol] 4.1 g/dL Normal 3.3 - 5.0 gm/dL Remisol Chem Albumin/Globulin [Mass ratio] 1.4 {ratio} Normal 1.1 - 2.2 Remisol Chem ALP [Catalytic activity/Vol] 95 [iU]/d Normal 21 - 98 Int._Unit/ L Remisol Chem ALT No additional P-5'-P [Catalytic activity/Vol] 27 [iU]/d Normal 6 - 46 Int._Unit/ L Remisol Chem Anion gap [Moles/Vol] 12 mmol/L Normal 6 - 16 mEq/L Remisol Chem AST [Catalytic activity/Vol] 19 [iU]/d Normal 5 - 43 Int._Unit/ L Remisol Chem Bilirubin [Mass/Vol] 0.7 mg/dL Normal 0.0 - 1 .1 mg/dL Remisol Chem Bilirubin.direct [Mass/Vol] 0.2 mg/dL Normal 0.0 - 0.4 mg/dL Remisol Chem Bilirubin.indirect [Mass or moles/Vol] 0.5 mg/dL Normal 0.1 - 0.9 mg/dL Remisol Chem Calcium [Mass/Vol] 9.3 mg/dL Normal 8.9 - 11. 1 mg/dL Remisol Chem Chloride [Moles/Vol] 102 mmol/L Normal 101 - 1 11 mmol/L Remisol Chem CO2 [Moles/Vol] 27 mmol/L Normal 21 - 31 mmol/L Rem[facility] Chem Creatinine [Mass/Vol] 1.0 mg/dL Normal 0.5 - 1.3 mg/dL Remisol Chem eGFR 89 mL/min/1.73 m2 Normal >=59mL/min /1.73 m2 Rem[facility] Chem Globulin (S) [Mass/Vol] 2.9 g/dL Normal 1.4 - 4.0 gm/dL Rem[facility] Chem Glucose [Mass/Vol] 269 mg/dL High 55 - 199 mg/dL Remisol Chem Lipase [Catalytic activity/Vol] 43 U/L Normal 13 - 58 unit/L Remisol Chem Potassium [Moles/Vol] 4.3 mmol/L Normal 3.5 - 5.3 mmol/L Remisol Chem Protein [Mass/Vol] 7.0 g/dL Normal 6.0 - 7.8 gm/dL Remisol Chem Sodium [Moles/Vol] 137 mmol/L Normal 135 - 145 mmol/L Remisol Chem Troponin HS 4.20 pg/mL Low 15.90 - 38.40 pg/mL Remisol Chem Comment on above: Interpretive Data: T he 95% CI (Confidence Interval) PPV (Positive Predictive Value) for myocardial infarction in females is 38 pg/mL, in males 51 pg/mL. The results should be used in conjunction with clinical conditions of myocardial infarction. (Access High Sensitivity Troponin I Instructions For Use, Mariano Fernandez, December 2017) Urea nitrogen [Mass/Vol] 18 mg/dL Normal 5 - 21 mg/dL Remisol Chem Urea nitrogen/Creatinine [Mass ratio] 18 mg/mg Normal 10 - 20 Remisol Chem COAGULATIONOrdered By: Jimbo Garrido on 12-25-2023 aPTT Coag (PPP) [Time] 35.8 s Normal 25.1 - 36.5 second(s) [facility] Comment on above: Interpretive Data: Tuyet be 15 days - 4 weeks 1 - 5 months 6 - 11 months 1 - 5 years 6 - 10 years 11 - 17 years PTT Mean: 35.4 (27.6-45.6) Mean: 33.5 (24.8-40.7) Mean: 32.4 (25.1-40.7) Mean: 31.6 (24.0-39.2) Mean: 31.6 (26.9-38.7) Mean: 31.0 (24.6-38.4) Pediatric Reference ranges were obtained from a study by heraclio Leiva al. prepared from 1437 samples obtained at 7 different centers using the same coagulation reagent and instrumentation as [facility]. Currently there are no coagulation studies available worldwide for children to 14 days, and no normal ranges. Heparin therapeutic range (represented by Anti-Factor Xa activity of 0.2 - 0.4 U/mL) corresponds to PTT of 56.6 - 109.0 sec. INR Coag (PPP) [Relative time] 0.91 {INR} Invalid Interpretation Code [facility] Comment on above: Interpretive Data: I NR results are specifically intended to assess patients stabilized on long-term Anticoagulation therapy suggested INR s Less Intensive Anticoagulation 2.0 3.0 Conventional Range 3.0 4.5 PT Coag (PPP) [Time] 10.2 s Normal 9.4 - 1 2.5 second(s) [facility] Comment on above: Interpretive Data: 1 5 days - 4 weeks 1 - 5 months 6 -11 months 1 5 years 6 10 years 11 -17 years Mean: 11.2 (9.5 12.6) Mean: 11.0 (9.7 12.8) Mean: 11.0 (9.8 13.0) Mean: 11.3 (9.9 13.4) Mean: 11.7 (10.0 14.6) Mean: 11.8 (10.0 - 14.1) Pediatric Reference ranges were obtained from a study by Tam Sinclair et al. prepared from 1437 samples obtained at 7 different centers using the same coagulation reagent and instrumentation as [facility]. Currently there are no coagulation studies available worldwide for children to 14 days, and no normal ranges. ED Clinical Summaryon 2023 ED Clinical Summary ED Clinical Summary [address] [address] ED Clinical Summary Person Information [facility]: [facility] Age[facility] 53 Years : 1970 Sex: Male Language: Kazakh PCP: CHAIM REEDER CNP Marital Status: Phone: [phone] Visit Id: Visit Reason: Nausea; Abdominal pain; BACK PAIN INTO FRONT, DIAGNOSED WITH PANCREATITIS MEDICATION NOT WORKING Speciality: Acuity: 3 Enc Type: Emergency Med Service: Emergency Arrival: 12/25/2023 14:14:16 Discharge: 12/25/2023 18:33:15 LOS: 000 04:19 Checkin: 12/25/2023 14:14:16 Checkout: 12/25/2023 18:33:15 Dispo Type: Home (Routine DC) EVENTS: Event Name Event Status Request Date/Time Start Date/Time Complete Date/Time Arrive Complete 12/25/2023 14:14:16 12/25/2023 14:14:16 12/25/2023 14:14:16 Document Home Meds Request 12/25/2023 14:14:16 Triage Complete 12/25/2023 14:14:16 12/25/2023 14:23:24 12/25/2023 14:23:24 Bed Assign Complete 12/25/2023 14:18:35 12/25/2023 14:18:35 12/25/2023 14:18:35 Dr Exam Complete 12/25/2023 14:18:35 12/25/2023 14:22:31 12/25/2023 14:22:31 RN Exam Complete 12/25/2023 14:18:35 12/25/2023 14:46:55 12/25/2023 14:46:55 Registration Complete 12/25/2023 14:19:59 12/25/2023 14:19:59 12/25/2023 14:19:59 Reg Complete Request 12/25/2023 14:19:59 Reg Bed Request Complete 12/25/2023 14:19:59 12/25/2023 14:19:59 12/25/2023 14:19:59 Registration Request 12/25/2023 14:22:31 Isolation Screening Request 12/25/2023 14:23:24 Meds Admin Complete 12/25/2023 14:42:56 12/25/2023 15:09:43 Pending Labs Complete 12/25/2023 14:42:56 12/25/2023 18:09:28 Lab Complete 12/25/2023 14:42:56 12/25/2023 15:57:52 EKG Complete 12/25/2023 14:42:56 12/25/2023 15:21:36 Patient Care Request 12/25/2023 14:42:56 RT Request 12/25/2023 14:42:56 X-Ray Complete 12/25/2023 14:42:56 12/25/2023 14:49:40 12/25/2023 14:58:37 Wet Read Request 12/25/2023 14:58:37 Dr Exam Complete 12/25/2023 15:23:54 12/25/2023 15:23:54 12/25/2023 15:23:54 Pending Labs Complete 12/25/2023 15:26:11 12/25/2023 15:26:11 12/25/2023 15:57:52 Lab Complete 12/25/2023 15:26:11 12/25/2023 15:26:11 12/25/2023 15:57:52 Meds Admin Complete 12/25/2023 16:04:44 12/25/2023 16:15:16 X-Ray Complete 12/25/2023 16:18:17 12/25/2023 16:20:30 12/25/2023 16:51:49 Discharge Complete 12/25/2023 18:20:39 12/25/2023 18:33:20 12/25/2023 18:33:20 Transfer Complete 12/25/2023 18:33:20 12/25/2023 18:33:20 12/25/2023 18:33:20 ADDRESS: [address] [facility] [id number] PHYS DOC NOTES: MEDICAL INFORMATION: Prescriptions Given: New Medications [id number], [address] [place], [place] [id number], [phone] naproxen (naproxen 500 mg Tab) 1 Tablets By Mouth 2 times a day as needed Pain. Refills: 0. ondansetron (Zofran ODT 4 mg Tab-Dis) 1 Tablets By Mouth every 8 hours as needed Nausea/Vomiting. Refills: 0. polyethylene glycol 3350 (Miralax 3350 17 gram packet) 17 Gram By Mouth every day. Refills: 0. PATIENT EDUCATION INFORMATION: Instructions: Abdominal Pain, Adult, Jgyy-ui-Yadg Follow up: With: Address: When: Steve Guadalupe [address] [facility], [facility] [address], [address] [address] [phone] Business (1) In 3 days 12/28/2023 With: Address: When: CHAIM REEDER [address] [place] [phone] Business (1) In 3 days 12/28/2023 Comments: Use MiraLAX daily for the next week. Increase water intake while using it. Use the naproxen as needed for pain. Follow-up with your family physician and the technical information specialist for further management of care. DIAGNOSIS: Constipation; Continuous epigastric pain Normal [facility] ED Note-Physicianon 12-25-19 ED Note-Physician ED Note-Physician Basic Information Time Seen: Greer Mcdaniel PA-C 12/25/2023 14:22 Chief Complaint patient presents with abdominal pain- dx with pancreatitis at [facility] last week- pain not getting better History of Present Illness Patient is a 53-year-old male with a past medical history of CHF, cholecystectomy, right nephrectomy secondary to kidney cancer, and smoking who presents to the ED with persistent abdominal pain that has been worsening over the past 3 weeks. Patient states he was seen at [facility] 3 times last week where he was diagnosed with pancreatitis. During this time he states he received a CT without contrast and a CT with contrast showing the pancreatitis. On one of the visits the patient was admitted for pain management but stated he was told he had a back strain and did not agree with what the hospitalist was saying. Patient notes the pain originally began intermittently but has since become constant. He describes it as a sharp pain that radiates from his upper abdomen into the right side of his back. He denies any known fevers. Patient states he followed up with his family physician yesterday who prescribed him Percocet and he notes mild relief in symptoms. He states he has also been having nausea/vomiting, with 1 bout of vomiting today. Patient notes he has been able to eat and drink. He also notes constipation but states this is common for him and not new. Patient denies shortness of breath, hematuria or dysuria. He states he has also been having chest pain intermittently for the past couple of years which she has attributed to his CHF. He has previously undergone a negative stress test. Review of Systems A 10 point review of systems is negative except as noted above. Medical and Surgical History: Reviewed and noted Social history: Lives at home Family History: Reviewed. Tobacco: Current use Physical Exam Vitals & Measurements T: 36.6 ?C(Oral) HR: 93(Peripheral) RR: 18 BP: 141/99 SpO2: 100% HT: 180.34 cm WT: 88.5 kg BMI: 27.21 General: The patient appears well and in no apparent distress. Patient is resting comfortably on cart. Skin: Warm, dry, no pallor noted. Head: Normocephalic, atraumatic Neck: No JVD Eye: PERRLA, EOMI ENT: Moist mucus membranes Cardiovascular: Regular rate normal peripheral perfusion Respiratory: No respiratory distress no accessory muscle use no obvious audible wheezing Chest Wall: no deformity Musculoskeletal: normal ROM, no deformity, no swelling GI: Mild epigastric tenderness to palpation, soft no obvious distention. No rebound or rigidity. No guarding. No CVA tenderness Neurological: A&O moves all extremities equal strength and symmetry Psychiatric: Cooperative and appropriate Procedure Heart Score for Major Cardiac Event History: Example factors for history - pattern of chest pain, onset, duration, relation with exercise, stress or cold, localization, concomitant symptoms. reaction to sublingual nitrates, [] Highly suspicious +2 [] Moderately suspicious +1 [x] Slightly suspicious 0 EKG: [] Significant ST-Depression +2 [] Non specific repolarization disturbance +1 [x] Normal 0 Age: [] >= 65 +2 [x] 45-65 + 1 [] <45 0 Risk Factors: (HLD, HTN, DM, Cigarette Smoking, Pos Family Hx, Obesity) [x] >3 risk factors or hx of atherosclerotic disease + 2 [] 1-2 risk factors + 1 [] No risk factors known 0 Troponin: [] >= 3X normal + 2 [] 1-3X normal + 1 [x] <= Normal 0 ------ [x] 0-3 Points 0.9 - 1.7% risk of major adverse cardiac event in 6 weeks [] 4-6 Points 12-16.6% risk of major adverse cardiac event in 6 weeks [] 7-10 Points 50-65% risk of major adverse cardiac event in 6 weeks ------ [x] 0-3 Points with 2 sets of negative cardiac markers <1% risk of major adverse cardiac event in 30 days. ------ Medical Decision Making Patient is a 53-year-old male with a past medical history of CHF, cholecystectomy, right nephrectomy secondary to kidney cancer, and smoking who presents to the ED with persistent abdominal pain that has been worsening over the past 3 weeks. Patient is hemodynamically stable and afebrile. He was given fluids, Toradol and Zofran while in the ED. EKG shows sinus rhythm with a rate of 82 bpm. Chest x-ray shows no acute cardiopulmonary abnormalities. The patient had 2 abdominal CTs last week at [facility]. He brought the results of these with him which showed mild fibrous stranding of the pancreatic head and colonic stool. On exam patient had mild tenderness to palpation of the epigastric area. Lab work today is unremarkable aside from a glucose of 269. Based on prior imaging and the unremarkable lab work today, I did not feel a repeat abdominal CT was necessary. Abdominal x-ray shows mild gas and moderate stool in the colon and rectum. Patient had 2 negati (more content not included)... Normal [facility] Comment on above: Result Comment: Elec tronically Signed By: Greer Mcdaniel PA-C\.br\Date and Time Signed: 12/25/23 18:25 EDT\.br\Electronically Co-Signed By: Greer Mcdaniel PA-C\.br\Date and Time Co-Signed: 12/25/23 19:19 EDT\.br\Electronically Co-Signed By: Kevin Mishra DO\.br\Date and Time Co-Signed: 12/25/23 20:59 EDT ED Patient Summaryon 024 ED Patient Summary ED Patient Summary [place] [id number] Patient Discharge Instructions Person Information Name: GENE BARAHONA Age: 53 Years Arrival Date: 12/25/2023 14:14:16 Discharge Diagnosis: Constipation; Continuous epigastric pain Primary Care Physician: CHAIM REEDER CNP Provider Information Primary Provider: Kevin Mishra DO Advanced Congressional Representative:Greer Mcdaniel PA-C The exam and treatment you received in the Emergency Department were for an urgent problem and are not intended as complete care. It is important that you follow up with a doctor, nurse practitioner, or physician?s assistant controller for ongoing care. If your symptoms become worse or you do not improve as expected and you are unable to reach your usual health care provider, you should return to the Emergency Department. We are available 24 hours a day. GENE BARAHONA has been given the following list of patient education materials, prescriptions and follow-up instructions: Follow-up Instructions: With: Address: When: [address], [address], [address] [phone] Business (1) In 3 days 12/28/2023 With: Address: When: CHAIM REEDER [address] [place], [place] [phone] [employer] (1) In 3 days 12/28/2023 Comments: Use MiraLAX daily for the next week. Increase water intake while using it. Use the naproxen as needed for pain. Follow-up with your family physician and the technical information specialist for further management of care. In the event that this physician does not participate in your insurance network, please consult with your insurance company to find a nearby participating provider. Patient Education Materials: Abdominal Pain, Adult, Ybtq-vo-Xijq A MESSAGE TO ALL PATIENTS REGARDING OPIOIDS PRESCRIPTION OPIOIDS: WHAT YOU NEED TO KNOW Prescription opioids can be used to help relieve mxitrrly-xl-upjrbt pain and are often prescribed following a surgery or injury, or for certain health conditions. These medications can be an important part of the treatment but also come with serious risks. It is important to work with your healthcare provider to make sure you are getting the safest, most effective care. WHAT ARE THE RISKS AND SIDE EFFECTS OF OPIOID USE? Prescription opioids carry serious risks of addiction and overdose, especially with prolonged use. An opioid overdose, often marked by slowed breathing, can cause sudden . The use of prescription opioids can have a number of side effects as well, even when taken as directed: ? Tolerance?meaning you might need to take more of the medication for the same pain relief ? Physical dependence?meaning you have symptoms of withdrawal when a medication is stopped ? Increased sensitivity to pain ? Constipation ? Nausea, vomiting, and dry mouth ? Sleepiness and dizziness ? Confusion ? Depression ? Low levels of testosterone that can result in lower sex drive, energy, and strength ? Itching and sweating RISKS ARE GREATER WITH: ? History of drug misuse, substance use disorder, or overdose ? Mental health conditions (such as depression or anxiety) ? Sleep apnea ? Older age (65 years and older) ? Avoid alcohol while taking prescription opioids. Also, unless specifically advised by your health care provider, medications to avoid include: ? Benzodiazepines (such as Xanax or Valium) ? Muscle relaxants (such as Soma or Flexeril) ? Hypnotics (such as Ambien or Lunesta) ? Other prescription opioids KNOW YOUR OPTIONS Talk to your health care provider about ways to manage your pain that don?t involve prescription opioids. Some of these options may actually work better and have fewer risks and side effects. Options may include: ? Pain relievers such as acetaminophen, ibuprofen, and naproxen ? Some medication that are also used for depression or seizures ? Physical therapy and exercise ? Cognitive behavioral therapy, a psychological, goal-directed approach, in which patients learn how to modify physical, behavioral, and emotional triggers of pain and stress. IF YOU ARE PRESCRIBED OPIOIDS FOR PAIN: ? Never take opioids in greater amounts or more often than prescribed. ? Follow up with your primary health care provider. o Work together to create a plan on how to manage your pain. o Talk about ways to help manage your pain that don?t involve prescription opioids. o Talk about any and all concerns and side effects. ? Help prevent misuse and abuse o Never sell or share prescription opioids. o Never use another person?s prescription opioids. ? Store prescription opioids in a secure place and out of reach of others (this may include visitors, children, friends, and family). ? Safely dispose of unused prescription opioids: Find your community drug take-back program or your pharmacy mail- (more content not included)... Normal [facility] HEMATOLOGYOrdered By: SYSTEM SYSTEM on 12-25-2023 Basophils/100 WBC (Bld) 0.9 % Normal 0.0 - 2.0 % Remisol Heme Basophils/Leukocytes Auto (Bld) [Pure # fraction] 0.1 E9/L Normal 0.0 - 0.2 E9/L Remisol Heme Eosinophils (Bld) [#/Vol] 0.2 E9/L Normal 0.0 - 0.5 E9/L Remisol Heme Eosinophils/100 WBC (Bld) 2.3 % Normal 0.0 - 8.0 % Remisol Heme Erythrocyte distribution width (RBC) [Ratio] 13.6 % Normal 10.9 - 14.2 % Remisol Heme Hematocrit (Bld) [Volume fraction] 42.2 % Normal 37.7 - 49.0 % Remisol Heme Hemoglobin (Bld) [Mass/Vol] 14.8 g/dL Normal 13.5 - 17.5 gm/dL Remisol Heme Lymphocytes (Bld) [#/Vol] 1.8 E9/L Normal 1.0 - 4.0 E9/L Remisol Heme Lymphocytes/100 WBC (Bld) 21.3 % Normal 14.0 - 50.0 % Remisol Heme MCH (RBC) [Entitic mass] 30.3 pg Normal 27.0 - 34.0 pg Remisol Heme MCHC (RBC) [Mass/Vol] 35.0 g/dL Normal 31.4 - 36.0 gm/dL Remisol Heme MCV (RBC) [Entitic vol] 86.7 fL Normal 80.0 - 100.0 fL Remisol Heme Monocytes (Bld) [#/Vol] 0.5 E9/L Normal 0.2 - 1.0 E9/L Remisol Heme Monocytes/100 WBC (Bld) 5.9 % Normal 4.0 - 14.0 % Remisol Heme Neutrophils (Bld) [#/Vol] 5.9 E9/L Normal 2.0 - 7.5 E9/L Remisol Heme Neutrophils/100 WBC (Bld) 69.6 % Normal 36.0 - 75.0 % Remisol Heme Platelet 193.0 E9/L Normal 150.0 - 500.0 E9/L Remisol Heme Platelet mean volume (Bld) [Entitic vol] 8.7 fL Normal 6.4 - 10.8 fL Remisol Heme RBC (Bld) [#/Vol] 4.9 E12/L Normal 4.3 - 5.9 E12/L Remisol Heme WBC corrected for nucl RBC Auto (Bld) [#/Vol] 8.4 E9/L Normal 4.0 - 11.0 E9/L Remisol Heme UA with Cult Rflxon 12-25-19 24 Bilirubin Ql (U) Negative Normal Negative [facility] Comment on above: Performed By: #### [id number] #### [facility] [address] [place] [address] Clarity (U) Clear Normal Clear [facility] Comment on above: Performed By: #### [id number] #### [facility] [address] [place] [address] Color (U) Light-Yellow Normal Yellow [facility] Comment on above: Result Comment: Micr oscopic readings are only performed on those samples that meet specific criteria set forth by [facility]. Performed By: #### 4 [id number] #### [facility] [address] [place] [address] Glucose Ql (U) 4+ mg/dL Abnormal Negative [facility] Comment on above: Performed By: #### 4 [id number] #### [facility] [address] [place] [address] Hemoglobin Auto test strip (U) [Mass/Vol] Negative Normal Negative [facility] Comment on above: Performed By: #### 4 [id number] #### [facility] [address] [place] [address] Ketones Auto test strip Ql (U) Negative Normal Negative [facility] Comment on above: Performed By: #### 4 [id number] #### [facility] [address] [place] [address] Leukocyte esterase Auto test strip Ql (U) Negative Normal Negative [facility] Comment on above: Performed By: #### 4 [id number] #### [facility] [address] [place] [address] Mucus Auto Ql (U) Negative Normal Negative [facility] Comment on above: Performed By: #### 4 [id number] #### [facility] [address] [place] [address] Nitrite Auto test strip Ql (U) Negative Normal Negative [facility] Comment on above: Performed By: #### 4 [id number] #### [facility] [address] [place] [address] pH (U) 6.5 [pH] Invalid Interpretation Code 5.0-9.0 [facility] Comment on above: Performed By: #### 4 [id number] #### [facility] [address] [place] [address] Protein Ql (U) 1+ mg/dL Abnormal Negative [facility] Comment on above: Performed By: #### 4 [id number] #### [facility] [address] [place] [address] RBC Ql (U) 4-20 Abnormal 0-3 [facility] Comment on above: Performed By: #### 4 [id number] #### [facility] [address] [place] [id number] Specific gravity (U) [Rel density] 1.017 Invalid Interpretation Code 1.005-1.03 0 [facility] Comment on above: Performed By: #### 4 [id number] #### [facility] [address] [place] [address] Urobilinogen (U) [Mass/Vol] Negative Normal Negative [facility] Comment on above: Performed By: #### 4 [id number] #### [facility] [address] [place] [address] WBC Auto (Urine sed) [#/Area] 0-5 Normal 0-5 [facility] Comment on above: Performed By: #### 4 [id number] #### [facility] [address] [place] [address] Type of Urine collection method Clean Catch Normal [facility] Comment on above: Performed By: #### 4 [id number] #### [facility] [address] [place] [id number] URINALYSISOrdered By: SYSTEM SYSTEM on 12-25-2023 Bilirubin Ql (U) Negative Normal Negativemg /dL [facility] Auto SS Clarity (U) Clear (12/25/23 5:44 PM) Normal Clear [facility]A Auto SS Color (U) Light-Yellow 1 (12/25/23 5:44 PM) Normal Yellow [facility] Auto SS Comment on above: Interpretive Data: M icroscopic readings are only performed on those samples that meet specific criteria set forth by [facility]. Glucose Ql (U) 4+ mg/dL Invalid Interpretation Code Negativemg /dL [facility] Auto SS Hemoglobin Auto test strip (U) [Mass/Vol] Negative Normal Negativemg /dL [facility] UA Auto SS Ketones Auto test strip Ql (U) Negative Normal Negativemg /dL [facility] UA Auto SS Leukocyte esterase Auto test strip Ql (U) Negative Normal NegativeLe u/uL [facility] UA Auto SS Mucus Auto Ql (U) Negative Normal Negativegr aded/LPF [facility] UA Auto SS Nitrite Auto test strip Ql (U) Negative Normal Negativemg /dL [facility] UA Auto SS pH (U) 6.5 *NA* (12/25/23 5:44 PM) Invalid Interpretation Code 5.0 - 9.0 [facility] UA Auto SS Protein Ql (U) 1+ mg/dL Invalid Interpretation Code Negativemg /dL [facility] UA Auto SS RBC Ql (U) 4-20 graded/HPF Invalid Interpretation Code 0-3graded/ HPF [facility] UA Auto SS Specific gravity (U) [Rel density] 1.017 *NA* (12/25/23 5:44 PM) Invalid Interpretation Code 1.005 - 1.030 [facility] UA Auto SS Urobilinogen (U) [Mass/Vol] Negative Normal Negativemg /dL [facility] Auto SS WBC Auto (Urine sed) [#/Area] 0-5 graded/HPF Normal 0-5graded/ HPF [facility] UA Auto SS URINALYSISOrdered By: Greer Mcdaniel on 12-25-2023 UA Spec Desc Clean Catch (12/25/23 5:44 PM) Normal [facility] [place] Work Phone: Alanine aminotransferase [En zymatic activity/volume] in Serum or PlasmaOrdered By: Chaim Reeder on 12-24-2023 ALT [Catalytic activity/Vol] 27 U/L Normal 7-52 [facility] Comment on above: Order Comment: Reaso n for Exam Type 2 diabetes mellitus with other specified complication Reason for Exam Neuropathy Performed By: #### L IPID, [id number], TSH3 wRFLX, CMP, PSAS, CBC, FE and TIBC, B12 #### [facility] [address] Albumin [Mass/volume] in Ser um or Plasma by Bromocresol green (BCG) dye binding methoOrdered By: Chaim Reeder on 12-24-2023 Albumin BCG dye [Mass/Vol] 4.1 g/dL 3.5-5.7 [facility] Alkaline phosphatase [Enzyma tic activity/volume] in Serum or PlasmaOrdered By: Chaim Reeder on 12-24-2023 ALP [Catalytic activity/Vol] 98 U/L Normal 34-104 [facility] Comment on above: Order Comment: Reaso n for Exam Type 2 diabetes mellitus with other specified complication Reason for Exam Neuropathy Performed By: #### L IPID, [id number], TSH3 wRFLX, CMP, PSAS, CBC, FE and TIBC, B12 #### [facility] [address] Amylase [Enzymatic activity/ volume] in Serum or PlasmaOrdered By: Chaim Reeder on 12-24-2023 Amylase [Catalytic activity/Vol] 54 U/L Normal 29-103 [facility] Comment on above: Order Comment: Reaso n for Exam Type 2 diabetes mellitus with other specified complication Reason for Exam Neuropathy Performed By: #### L IPID, [id number], TSH3 wRFLX, CMP, PSAS, CBC, FE and TIBC, B12 #### [address] Aspartate aminotransferase [ Enzymatic activity/volume] in Serum or PlasmaOrdered By: Chaim Reeder on 12-24-2023 AST [Catalytic activity/Vol] 19 U/L Normal 13-39 [facility] Comment on above: Order Comment: Reaso n for Exam Type 2 diabetes mellitus with other specified complication Reason for Exam Neuropathy Performed By: #### L IPID, [id number], TSH3 wRFLX, CMP, PSAS, CBC, FE and TIBC, B12 #### [facility] [address] [place] [address] Automated basophil %Ordered By: Chaim Reeder on 12-24-2023 Basophils/100 WBC (Bld) 0.8 % Normal . [facility] Comment on above: Order Comment: Reaso n for Exam Type 2 diabetes mellitus with other specified complication Reason for Exam Neuropathy Performed By: #### L IPID, [id number], TSH3 wRFLX, CMP, PSAS, CBC, FE and TIBC, B12 #### [facility] [address] [place] [id number] [place] Automated basophil countOrde red By: Chaim Reeder on 12-24-2023 Basophils (Bld) [#/Vol] 0.1 10*3/uL Normal 0.0-0.2 [facility] Comment on above: Order Comment: Reaso n for Exam Type 2 diabetes mellitus with other specified complication Reason for Exam Neuropathy Result Comment: PERF ORMED BY: [place] [address] PATHOLOGIST [employer]IN[employer] ALYSSA MOSQUEDA M.D. Performed By: #### L IPID, [id number], TSH3 wRFLX, CMP, PSAS, CBC, FE and TIBC, B12 #### [facility] [address] [place] [address] Automated blood monocyte cou ntOrdered By: Chaim Reeder on 12-24-2023 Monocytes (Bld) [#/Vol] 0.3 10*3/uL Normal 0.0-0.8 [facility] Comment on above: Order Comment: Reaso n for Exam Type 2 diabetes mellitus with other specified complication Reason for Exam Neuropathy Performed By: #### L IPID, [id number], TSH3 wRFLX, CMP, PSAS, CBC, FE and TIBC, B12 #### [facility] [address] [place] [address] Automated eosinophil %Ordere d By: Chaim Reeder on 12-24-2023 Eosinophils/100 WBC (Bld) 2.6 % Normal . [facility] Comment on above: Order Comment: Reaso n for Exam Type 2 diabetes mellitus with other specified complication Reason for Exam Neuropathy Performed By: #### L IPID, [id number], TSH3 wRFLX, CMP, PSAS, CBC, FE and TIBC, B12 #### [facility] [address] [place] [address] Automated eosinophil countOr dered By: Chaim Reeder on 12-24-2023 Eosinophils (Bld) [#/Vol] 0.2 10*3/uL Normal 0.0-0.45 [facility] Comment on above: Order Comment: Reaso n for Exam Type 2 diabetes mellitus with other specified complication Reason for Exam Neuropathy Performed By: #### L IPID, [id number], TSH3 wRFLX, CMP, PSAS, CBC, FE and TIBC, B12 #### [facility] [address] [place] [address] [place] Automated monocyte %Ordered By: Chaim Reeder on 12-24-2023 Monocytes/100 WBC (Bld) 3.6 % Normal . [facility] Comment on above: Order Comment: Reaso n for Exam Type 2 diabetes mellitus with other specified complication Reason for Exam Neuropathy Performed By: #### L IPID, [id number], TSH3 wRFLX, CMP, PSAS, CBC, FE and TIBC, B12 #### [facility] [address] [place] [address] [facility] Automated neutrophil %Ordere d By: Chaim Reeder on 12-24-2023 Neutrophils/100 WBC (Bld) 66.0 % Normal . [facility] Comment on above: Order Comment: Reaso n for Exam Type 2 diabetes mellitus with other specified complication Reason for Exam Neuropathy Performed By: #### L IPID, [id number], TSH3 wRFLX, CMP, PSAS, CBC, FE and TIBC, B12 #### [facility] [address] [place] [id number] [facility] Bilirubin.total [Mass/volume ] in Serum or PlasmaOrdered By: Chaim Reeder on 12-24-2023 Bilirubin [Mass/Vol] 0.5 mg/dL Normal 0.3-1.[address] [facility] Comment on above: Order Comment: Reaso n for Exam Type 2 diabetes mellitus with other specified complication Reason for Exam Neuropathy Performed By: #### L IPID, [id number], TSH3 wRFLX, CMP, PSAS, CBC, FE and TIBC, B12 #### [facility] [address] [place] [id number] [place] Calcium [Mass/volume] in Ser um or PlasmaOrdered By: Chaim Reeder on 12-24-2023 Calcium [Mass/Vol] 9.0 mg/dL Normal 8.6-10.3 [facility] Comment on above: Order Comment: Reaso n for Exam Type 2 diabetes mellitus with other specified complication Reason for Exam Neuropathy Performed By: #### L IPID, [id number], TSH3 wRFLX, CMP, PSAS, CBC, FE and TIBC, B12 #### [facility] [address] [place] [address] [place] Carbon dioxide, total [Moles /volume] in Serum or PlasmaOrdered By: Chaim Reeder on 12-24-2023 CO2 [Moles/Vol] 28.6 mmol/L Normal 21.0-31.0 [facility] Comment on above: Order Comment: Reaso n for Exam Type 2 diabetes mellitus with other specified complication Reason for Exam Neuropathy Performed By: #### L IPID, [id number], TSH3 wRFLX, CMP, PSAS, CBC, FE and TIBC, B12 #### [facility] [address] [place] [id number] [place] Chloride [Moles/volume] in S manohar or PlasmaOrdered By: Chaim Reeder on 12-24-2023 Chloride [Moles/Vol] 102 mmol/L Normal 98-[address] [facility] Comment on above: Order Comment: Reaso n for Exam Type 2 diabetes mellitus with other specified complication Reason for Exam Neuropathy Performed By: #### L IPID, [id number], TSH3 wRFLX, CMP, PSAS, CBC, FE and TIBC, B12 #### [facility] [address] [place] [id number] [place] Cholesterol [Mass/volume] in Serum or PlasmaOrdered By: Chaim Reeder on 12-24-2023 Cholesterol [Mass/Vol] 159 mg/dL Normal 140-200 [facility] [place] Comment on above: Chol less than 200 m g/dl low riskChol 201-239 mg/dl borderline riskChol 240 mg/dl and greater high risk Order Comment: Reaso n for Exam Type 2 diabetes mellitus with other specified complication Reason for Exam Neuropathy Result Comment: Chol less than 200 mg/dl low risk Chol 201-239 mg/dl borderline risk Chol 240 mg/dl and greater high risk Performed By: #### L IPID, [id number], TSH3 wRFLX, CMP, PSAS, CBC, FE and TIBC, B12 #### [facility] [address] [place] [address] [place] Cholesterol in LDL Calc [Mas s/Vol]Ordered By: Chaim Reeder on 12-24-2023 Cholesterol in LDL [Mass/Vol] 67 mg/dL 0-100 [facility] Comment on above: LDL ATP III CLASSIFI CATIONLDL less than 100 mg/dL OptimalLDL 100-129 mg/dL Near or above optimalLDL 130-159 mg/dL Borderline highLDL 160-189 mg/dL HighLDL greater than 189 mg/dL Very high Cholesterol in VLDL Calc [Ma ss/Vol]Ordered By: Chaim Reeder on 12-24-2023 Cholesterol in VLDL [Mass/Vol] 56 mg/dL [facility] Complete Blood Count Auto Di ffon 12-24-2023 Mean Corpuscular HGB Conc 34.4 g/dL Normal 32.5-35.6 [facility] Comment on above: Order Comment: Reaso n for Exam Type 2 diabetes mellitus with other specified complication Reason for Exam Neuropathy Performed By: #### L IPID, [id number], TSH3 wRFLX, CMP, PSAS, CBC, FE and TIBC, B12 #### [facility] [address] NRBC% 0.1 /100{WBC} Normal 0-0.5 [facility] Comment on above: Order Comment: Reaso n for Exam Type 2 diabetes mellitus with other specified complication Reason for Exam Neuropathy Performed By: #### L IPID, [id number], TSH3 wRFLX, CMP, PSAS, CBC, FE and TIBC, B12 #### [facility] [address] Comprehensive Metabolic Pane yumi 12-24-2023 Albumin [Mass/Vol] 4.1 g/dL Normal 3.5-5.7 [facility] Comment on above: Order Comment: Reaso n for Exam Type 2 diabetes mellitus with other specified complication Reason for Exam Neuropathy Performed By: #### L IPID, [id number], TSH3 wRFLX, CMP, PSAS, CBC, FE and TIBC, B12 #### [facility] [address] GFR/1.73 sq M.predicted MDRD (S/P/Bld) [Vol rate/Area] mL/min/{1.73_m2} Normal [facility] Comment on above: Order Comment: Reaso n for Exam Type 2 diabetes mellitus with other specified complication Reason for Exam Neuropathy Performed By: #### L IPID, [id number], TSH3 wRFLX, CMP, PSAS, CBC, FE and TIBC, B12 #### [facility] [address] Creatinine [Mass/volume] in Serum or PlasmaOrdered By: Chaim Reeder on 12-24-2023 Creatinine [Mass/Vol] 1.17 mg/dL Normal 0.70-1.30 [facility] Comment on above: Order Comment: Reaso n for Exam Type 2 diabetes mellitus with other specified complication Reason for Exam Neuropathy Performed By: #### L IPID, [id number], TSH3 wRFLX, CMP, PSAS, CBC, FE and TIBC, B12 #### [facility] [address] [place] [address] Erythrocyte distribution wid th [Ratio] by Automated countOrdered By: Chaim Reeder on 12-24-2023 Erythrocyte distribution width (RBC) [Ratio] 13.5 % Normal 12.0-14.8 [facility] Comment on above: Order Comment: Reaso n for Exam Type 2 diabetes mellitus with other specified complication Reason for Exam Neuropathy Performed By: #### L IPID, [id number], TSH3 wRFLX, CMP, PSAS, CBC, FE and TIBC, B12 #### [facility] [address] [place] [address] [place] Erythrocytes [#/volume] in B lood by Automated countOrdered By: Chaim Reeder on 12-24-2023 RBC (Bld) [#/Vol] 4.94 10*6/uL Normal 3.90-5.60 [facility] Comment on above: Order Comment: Reaso n for Exam Type 2 diabetes mellitus with other specified complication Reason for Exam Neuropathy Performed By: #### L IPID, [id number], TSH3 wRFLX, CMP, PSAS, CBC, FE and TIBC, B12 #### [facility] [address] [place] [address] [place] Glucose [Mass/volume] in Ser um or PlasmaOrdered By: Chaim Reeder on 12-24-2023 Glucose [Mass/Vol] 253 mg/dL High 70-100 [facility] Comment on above: ADA recommended refe rence rangeRandom Glucose Reference Range is dependent on time and content of last meal. Glucose of more than 200 mg/dL in a nonstressed, ambulatory subject supports the diagnosis of Diabetes Mellitus. Order Comment: Reaso n for Exam Type 2 diabetes mellitus with other specified complication Reason for Exam Neuropathy Result Comment: [place] om Glucose Reference Range is dependent on time and content of last meal. Glucose of more than 200 mg/dL in a nonstressed, ambulatory subject supports the diagnosis of Diabetes Mellitus. ADA recommended reference range Performed By: #### L IPID, [id number], TSH3 wRFLX, CMP, PSAS, CBC, FE and TIBC, B12 #### [facility] [address] [place] [address] Hematocrit [Volume Fraction] of Blood by Automated countOrdered By: Chaim Reeder on 12-24-2023 Hematocrit (Bld) [Volume fraction] 42.9 % Normal 38.8-50.0 [facility] Comment on above: Order Comment: Reaso n for Exam Type 2 diabetes mellitus with other specified complication Reason for Exam Neuropathy Performed By: #### L IPID, [id number], TSH3 wRFLX, CMP, PSAS, CBC, FE and TIBC, B12 #### [facility] [address] [place] [address] Hemoglobin [Mass/volume] in BloodOrdered By: Chaim Reeder on 12-24-2023 Hemoglobin (Bld) [Mass/Vol] 14.8 g/dL Normal 13.0-17.0 [facility] Comment on above: Order Comment: Reaso n for Exam Type 2 diabetes mellitus with other specified complication Reason for Exam Neuropathy Performed By: #### L IPID, [id number], TSH3 wRFLX, CMP, PSAS, CBC, FE and TIBC, B12 #### [facility] [address] Hepatitis Acute Panelon 12-11 HBsAg Screen Negative Normal Negative [facility] Comment on above: Order Comment: Reaso n for Exam Type 2 diabetes mellitus with other specified complication Reason for Exam Neuropathy Performed By: #### L IPID, [id number], TSH3 wRFLX, CMP, PSAS, CBC, FE and TIBC, B12 #### [facility] [address] [place] [address] Hepatitis A Antibody IgM Negative Normal Negative [facility] Comment on above: Order Comment: Reaso n for Exam Type 2 diabetes mellitus with other specified complication Reason for Exam Neuropathy Performed By: #### L IPID, [id number], TSH3 wRFLX, CMP, PSAS, CBC, FE and TIBC, B12 #### [facility] [address] [place] [address] Hepatitis B Core Antibody IgM Negative Normal Negative [facility] Comment on above: Order Comment: Reaso n for Exam Type 2 diabetes mellitus with other specified complication Reason for Exam Neuropathy Performed By: #### L IPID, [id number], TSH3 wRFLX, CMP, PSAS, CBC, FE and TIBC, B12 #### [facility] [address] [place] [address] Hepatitis C Virus Antibody Non-Reactive Normal Non Reactive [facility] Comment on above: Order Comment: Reaso n for Exam Type 2 diabetes mellitus with other specified complication Reason for Exam Neuropathy Performed By: #### L IPID, [id number], TSH3 wRFLX, CMP, PSAS, CBC, FE and TIBC, B12 #### [facility] [address] [place] [address] Interpretation Hepatitis C Comment Normal . [facility] Comment on above: Order Comment: Reaso n for Exam Type 2 diabetes mellitus with other specified complication Reason for Exam Neuropathy Result Comment: Not infected with HCV unless early or acute infection is suspected (which may be delayed in an immunocompromised individual), or other evidence exists to indicate HCV infection. Performed at: - [facility] [id number] [employer]ap Drier Operator: Munir Nayak PhD, Phone: [phone] PERFORMED BY: [place] [address] PATHOLOGIST [employer]INTAINER ALYSSA MOSQUEDA M.D. Performed By: #### L IPID, [id number], TSH3 wRFLX, CMP, PSAS, CBC, FE and TIBC, B12 #### [facility] [address] [place] [id number] [facility] Leukocytes [#/volume] correc janelle for nucleated erythrocytes in Blood by Automated counOrdered By: Chaim Reeder on 12-24-2023 WBC corrected for nucl RBC Auto (Bld) [#/Vol] 8.2 10*3/uL 4.1-10.5 [facility] Leukocytes [#/volume] in Blo od by Automated countOrdered By: Chaim Reeder on 12-24-2023 WBC (Bld) [#/Vol] 8.2 10*3/uL Normal 4.1-10.5 [facility] Comment on above: Order Comment: Reaso n for Exam Type 2 diabetes mellitus with other specified complication Reason for Exam Neuropathy Performed By: #### L IPID, [id number], TSH3 wRFLX, CMP, PSAS, CBC, FE and TIBC, B12 #### [facility] [address] Lipase [Enzymatic activity/v olume] in Serum or PlasmaOrdered By: Chaim Reeder on 12-24-2023 Lipase [Catalytic activity/Vol] 54.0 U/L Normal 11.0-82.0 [facility] Comment on above: Order Comment: Reaso n for Exam Type 2 diabetes mellitus with other specified complication Reason for Exam Neuropathy Performed By: #### L IPID, [id number], TSH3 wRFLX, CMP, PSAS, CBC, FE and TIBC, B12 #### [facility] [address] [place] [id number] [facility] Lipid Panelon 12-24-2023 LDL Cholesterol,Calculated 67 mg/dL Normal 0-100 [facility] Comment on above: Order Comment: Reaso n for Exam Type 2 diabetes mellitus with other specified complication Reason for Exam Neuropathy Result Comment: LDL ATP III CLASSIFICATION LDL less than 100 mg/dL Optimal LDL 100-129 mg/dL Near or above optimal LDL 130-159 mg/dL Borderline high LDL 160-189 mg/dL High LDL greater than 189 mg/dL Very high Performed By: #### L IPID, [id number], TSH3 wRFLX, CMP, PSAS, CBC, FE and TIBC, B12 #### [facility] [address] Triglyceride w/Reflex 284 mg/dL High 0-149 [facility] Comment on above: Order Comment: Reaso n for Exam Type 2 diabetes mellitus with other specified complication Reason for Exam Neuropathy Result Comment: TRIG ATP III CLASSIFICATION TRIG less than 150 mg/dL Normal TRIG 150-199 mg/dL Borderline high TRIG 200-500 mg/dL High TRIG greater than 500 mg/dL Very high Standard traceable to the Center for Disease Conrtrol and Prevention (CDC) test method. Performed By: #### L IPID, [id number], TSH3 wRFLX, CMP, PSAS, CBC, FE and TIBC, B12 #### [address] VLDL CHOLESTEROL 56 mg/dL Normal [facility] Comment on above: Order Comment: Reaso n for Exam Type 2 diabetes mellitus with other specified complication Reason for Exam Neuropathy Performed By: #### L IPID, [id number], TSH3 wRFLX, CMP, PSAS, CBC, FE and TIBC, B12 #### [address] Lymphocytes [#/volume] in Bl ood by Automated countOrdered By: Chaim Reeder on 12-24-2023 Lymphocytes (Bld) [#/Vol] 2.2 10*3/uL Normal 1.00-4.8 [facility] Comment on above: Order Comment: Reaso n for Exam Type 2 diabetes mellitus with other specified complication Reason for Exam Neuropathy Performed By: #### L IPID, [id number], TSH3 wRFLX, CMP, PSAS, CBC, FE and TIBC, B12 #### [address] Lymphocytes/100 leukocytes i n Blood by Automated countOrdered By: Chaim Reeder on 12-24-2023 Lymphocytes/100 WBC (Bld) 27.0 % Normal . [facility] Comment on above: Order Comment: Reaso n for Exam Type 2 diabetes mellitus with other specified complication Reason for Exam Neuropathy Performed By: #### L IPID, [id number], TSH3 wRFLX, CMP, PSAS, CBC, FE and TIBC, B12 #### [facility] [address] MCH [Entitic mass] by Automa janelle countOrdered By: Chaim Reeder on 12-24-2023 MCH (RBC) [Entitic mass] 29.9 pg Normal 27.5-35.2 [facility] Comment on above: Order Comment: Reaso n for Exam Type 2 diabetes mellitus with other specified complication Reason for Exam Neuropathy Performed By: #### L IPID, [id number], TSH3 wRFLX, CMP, PSAS, CBC, FE and TIBC, B12 #### [facility] [address] [place] [address] MCHC Auto (RBC) [Mass/Vol]Or dered By: Chaim Reeder on 12-24-2023 MCHC (RBC) [Mass/Vol] 34.4 g/dL 32.5-35.6 [facility] MCV [Entitic volume] by Auto mated countOrdered By: Chaim Reeder on 12-24-2023 MCV (RBC) [Entitic vol] 87.0 fL Normal 83.5-101 [facility] Comment on above: Order Comment: Reaso n for Exam Type 2 diabetes mellitus with other specified complication Reason for Exam Neuropathy Performed By: #### L IPID, [id number], TSH3 wRFLX, CMP, PSAS, CBC, FE and TIBC, B12 #### [facility] [address] [place] [address] Neutrophils [#/volume] in Bl ood by Automated countOrdered By: Chaim Reeder on 12-24-2023 Neutrophils (Bld) [#/Vol] 5.4 10*3/uL Normal 1.8-7.7 [facility] Comment on above: Order Comment: Reaso n for Exam Type 2 diabetes mellitus with other specified complication Reason for Exam Neuropathy Performed By: #### L IPID, [id number], TSH3 wRFLX, CMP, PSAS, CBC, FE and TIBC, B12 #### [facility] [address] [place] [address] [place] No Panel InformationOrdered By: Chaim Reeder on 12-24-2023 Estimated GFR (CKD-EPI) > 60.0 mL/Min [facility] Creatinine Clearance (Chem N/A [facility] Nucleated erythrocytes [Pres ence] in Blood by Automated countOrdered By: Chaim Reeder on 12-24-2023 Nucleated RBC Auto Ql (Bld) 0.1 /100{WBC} 0-0.5 [facility] Platelet mean volume [Entiti c volume] in Blood by Automated countOrdered By: Chaim Reeder on 12-24-2023 Platelet mean volume (Bld) [Entitic vol] 9.6 fL Normal 6.6-10.1 [facility] Comment on above: Order Comment: Reaso n for Exam Type 2 diabetes mellitus with other specified complication Reason for Exam Neuropathy Performed By: #### L IPID, [id number], TSH3 wRFLX, CMP, PSAS, CBC, FE and TIBC, B12 #### [facility] [address] [place] [address] [place] Platelets [#/volume] in Bloo d by Automated countOrdered By: Chaim Reeder on 12-24-2023 Platelets (Bld) [#/Vol] 194 10*3/uL Normal 150-450 [facility] Comment on above: Order Comment: Reaso n for Exam Type 2 diabetes mellitus with other specified complication Reason for Exam Neuropathy Performed By: #### L IPID, [id number], TSH3 wRFLX, CMP, PSAS, CBC, FE and TIBC, B12 #### [facility] [address] [place] [address] [place] Potassium [Moles/volume] in Serum or PlasmaOrdered By: Chaim Reeder on 12-24-2023 Potassium [Moles/Vol] 4.6 mmol/L Normal 3.5-5.1 [facility] Comment on above: Order Comment: Reaso n for Exam Type 2 diabetes mellitus with other specified complication Reason for Exam Neuropathy Performed By: #### L IPID, [id number], TSH3 wRFLX, CMP, PSAS, CBC, FE and TIBC, B12 #### [facility] [address] [place] [address] [place] Protein [Mass/volume] in Ser um or PlasmaOrdered By: Chaim Reeder on 12-24-2023 Protein [Mass/Vol] 6.9 g/dL Normal 6.4-8.9 [facility] Comment on above: Order Comment: Reaso n for Exam Type 2 diabetes mellitus with other specified complication Reason for Exam Neuropathy Performed By: #### L IPID, [id number], TSH3 wRFLX, CMP, PSAS, CBC, FE and TIBC, B12 #### [facility] [address] Serum globulin measurement b y calculation (mass/volume)Ordered By: Chaim Reeder on 12-24-2023 Globulin (S) [Mass/Vol] 2.8 g/dL Normal [facility] Comment on above: Order Comment: Reaso n for Exam Type 2 diabetes mellitus with other specified complication Reason for Exam Neuropathy Performed By: #### L IPID, [id number], TSH3 wRFLX, CMP, PSAS, CBC, FE and TIBC, B12 #### [facility] [address] Serum or plasma albumin/glob ulin mass ratioOrdered By: Chaim Reeder on 12-24-2023 Albumin/Globulin [Mass ratio] 1.5 {ratio} Normal [facility] [facility] Comment on above: Order Comment: Reaso n for Exam Type 2 diabetes mellitus with other specified complication Reason for Exam Neuropathy Performed By: #### L IPID, [id number], TSH3 wRFLX, CMP, PSAS, CBC, FE and TIBC, B12 #### [facility] [address] Serum or plasma anion gap de terminationOrdered By: Chaim Reeder on 12-24-2023 Anion gap [Moles/Vol] 11.0 mmol/L Normal 6.0-15.0 [facility] Comment on above: Order Comment: Reaso n for Exam Type 2 diabetes mellitus with other specified complication Reason for Exam Neuropathy Performed By: #### L IPID, [id number], TSH3 wRFLX, CMP, PSAS, CBC, FE and TIBC, B12 #### [facility] [address] Serum or plasma high density lipoprotein (HDL) cholesterol measurementOrdered By: Chaim Reeder on 12-24-2023 Cholesterol in HDL [Mass/Vol] 35 mg/dL Normal 23-92 [facility] Comment on above: HDL CHOL ATP-III CLA SSIFICATION Cardiovascular RiskHDL > or equal to 60 mg/dL LOWHDL < 40 mg/dL HIGH Order Comment: Reaso n for Exam Type 2 diabetes mellitus with other specified complication Reason for Exam Neuropathy Result Comment: HDL CHOL ATP-III CLASSIFICATION Cardiovascular Risk HDL > or equal to 60 mg/dL LOW HDL < 40 mg/dL HIGH Performed By: #### L IPID, [id number], TSH3 wRFLX, CMP, PSAS, CBC, FE and TIBC, B12 #### [facility] [address] Serum or plasma total choles terol/high density lipoprotein (HDL) cholesterol mass ratOrdered By: Chaim Reeder on 12-24-2023 Cholesterol.total/Chol esterol in HDL [Mass ratio] 4.5 {ratio} Normal <5.0 [facility] Comment on above: Order Comment: Reaso n for Exam Type 2 diabetes mellitus with other specified complication Reason for Exam Neuropathy Result Comment: PERF ORMED BY: [place] [address] PATHOLOGIST [employer] ALYSSA MOSQUEDA M.D. Performed By: #### L IPID, [id number], TSH3 wRFLX, CMP, PSAS, CBC, FE and TIBC, B12 #### [facility] [address] Sodium [Moles/volume] in Ser um or PlasmaOrdered By: Chaim Reeder on 12-24-2023 Sodium [Moles/Vol] 137 mmol/L Normal 136-145 [facility] Comment on above: Order Comment: Reaso n for Exam Type 2 diabetes mellitus with other specified complication Reason for Exam Neuropathy Performed By: #### L IPID, [id number], TSH3 wRFLX, CMP, PSAS, CBC, FE and TIBC, B12 #### [facility] [address] Triglyceride [Mass/volume] i n Serum or PlasmaOrdered By: Chaim Reeder on 12-24-2023 Triglyceride [Mass/Vol] 284 mg/dL High 0-149 [facility] Comment on above: TRIG ATP III CLASSIF ICATIONTRIG less than 150 mg/dL NormalTRIG 150-199 mg/dL Borderline highTRIG 200-500 mg/dL High TRIG greater than 500 mg/dL Very highStandard traceable to the Center for Disease Conrtrol and Prevention (CDC) test method. Urea nitrogen [Mass/volume] in Serum or PlasmaOrdered By: Chaim Reeder on 12-24-2023 Urea nitrogen [Mass/Vol] 26 mg/dL High 7-25 [facility] Comment on above: Order Comment: Reaso n for Exam Type 2 diabetes mellitus with other specified complication Reason for Exam Neuropathy Performed By: #### L IPID, [id number], TSH3 wRFLX, CMP, PSAS, CBC, FE and TIBC, B12 #### [facility] [address] Capillary blood glucose fermín urement by glucometer (mass/volume)Ordered By: Antonio Nevarez on 12-23-2023 Glucose [Mass/Vol] 269 mg/dL Normal [facility] Comment on above: Random Glucose Refer ence Range is dependent on time and content of last meal. Glucose of more than 200 mg/dL in a nonstressed, ambulatory subject supports the diagnosis of Diabetes Mellitus. Result Comment: [place] Glucose Reference Range is dependent on time and content of last meal. Glucose of more than 200 mg/dL in a nonstressed, ambulatory subject supports the diagnosis of Diabetes Mellitus. PERFORMED BY: [place] [address] PATHOLOGIST [employer] ALYSSA MOSQUEDA M.D. Performed By: #### L IPID, [id number], TSH3 wRFLX, CMP, PSAS, CBC, FE and TIBC, B12 #### [facility] [address] Glucose Poct Glucometerson 0 12-23-2023 Glucose [Mass/Vol] 206 mg/dL Normal [facility] Comment on above: Result Comment: [facility] Glucose Reference Range is dependent on time and content of last meal. Glucose of more than 200 mg/dL in a nonstressed, ambulatory subject supports the diagnosis of Diabetes Mellitus. PERFORMED BY: [place] [address] PATHOLOGIST [employer] ALYSSA MOSQUEDA M.D. Performed By: #### G KATHIE #### Point of Care testing , Alanine aminotransferase [En zymatic activity/volume] in Serum or PlasmaOrdered By: Kiya Gomezimore on 12-22-2023 ALT [Catalytic activity/Vol] 30 U/L Normal 7-52 [facility] Comment on above: Performed By: #### L IPID, [id number], TSH3 wRFLX, CMP, PSAS, CBC, FE and TIBC, B12 #### [facility] [address] [place] [address] [place] Albumin [Mass/volume] in Ser um or Plasma by Bromocresol green (BCG) dye binding methoOrdered By: Kiya Bullimore on 12-22-2023 Albumin BCG dye [Mass/Vol] 4.3 g/dL 3.5-5.7 [facility] Alkaline phosphatase [Enzyma tic activity/volume] in Serum or PlasmaOrdered By: Kiya Bullimore on 12-22-2023 ALP [Catalytic activity/Vol] 101 U/L Normal 34-104 [facility] Comment on above: Performed By: #### L IPID, [id number], TSH3 wRFLX, CMP, PSAS, CBC, FE and TIBC, B12 #### [facility] [address] [place] [address] [place] Amylase [Enzymatic activity/ volume] in Serum or PlasmaOrdered By: Kiya Bullimore on 12-22-2023 Amylase [Catalytic activity/Vol] 52 U/L Normal 29-103 [facility] Comment on above: Performed By: #### L IPID, [id number], TSH3 wRFLX, CMP, PSAS, CBC, FE and TIBC, B12 #### [facility] [address] [place] [address] Aspartate aminotransferase [ Enzymatic activity/volume] in Serum or PlasmaOrdered By: Kiya Riggins on 12-22-2023 AST [Catalytic activity/Vol] 25 U/L Normal 13-39 [facility] Comment on above: Performed By: #### L IPID, [id number], TSH3 wRFLX, CMP, PSAS, CBC, FE and TIBC, B12 #### [facility] [address] [place] [address] Automated basophil %Ordered By: Kiya Riggins on 12-22-2023 Basophils/100 WBC (Bld) 0.8 % Normal . [facility] Comment on above: Performed By: #### L IPID, [id number], TSH3 wRFLX, CMP, PSAS, CBC, FE and TIBC, B12 #### [address] Automated basophil countOrde red By: Kiya Riggins on 12-22-2023 Basophils (Bld) [#/Vol] 0.1 10*3/uL Normal 0.0-0.2 [facility] Comment on above: Result Comment: PERF ORMED BY: [place] [address] PATHOLOGIST [employer] ALYSSA MOSQUEDA M.D. Performed By: #### L IPID, [id number], TSH3 wRFLX, CMP, PSAS, CBC, FE and TIBC, B12 #### [facility] [address] [place] [address] Automated blood monocyte cou ntOrdered By: Kiya Ceceore on 12-22-2023 Monocytes (Bld) [#/Vol] 0.5 10*3/uL Normal 0.0-0.8 [facility] Comment on above: Performed By: #### L IPID, [id number], TSH3 wRFLX, CMP, PSAS, CBC, FE and TIBC, B12 #### [facility] [address] [place] [address] Automated eosinophil %Ordere d By: Kiya Ceceore on 12-22-2023 Eosinophils/100 WBC (Bld) 2.5 % Normal . [facility] Comment on above: Performed By: #### L IPID, [id number], TSH3 wRFLX, CMP, PSAS, CBC, FE and TIBC, B12 #### [address] Automated eosinophil countOr dered By: Kiya Riggins on 12-22-2023 Eosinophils (Bld) [#/Vol] 0.2 10*3/uL Normal 0.0-0.45 [facility] Comment on above: Performed By: #### L IPID, [id number], TSH3 wRFLX, CMP, PSAS, CBC, FE and TIBC, B12 #### [address] Automated monocyte %Ordered By: Kiya Riggins on 12-22-2023 Monocytes/100 WBC (Bld) 6.0 % Normal . [facility] Comment on above: Performed By: #### L IPID, [id number], TSH3 wRFLX, CMP, PSAS, CBC, FE and TIBC, B12 #### [address] Automated neutrophil %Ordere d By: Kiya Riggins on 12-22-2023 Neutrophils/100 WBC (Bld) 62.7 % Normal . [facility] Comment on above: Performed By: #### L IPID, [id number], TSH3 wRFLX, CMP, PSAS, CBC, FE and TIBC, B12 #### [address] Bacteria [Presence] in Urine by AutomatedOrdered By: Kiya Riggins on 12-22-2023 Bacteria Auto Ql (U) None seen [HPF] None Seen [facility] Bilirubin Test strip Ql (U)O rdered By: Kiya Riggins on 12-22-2023 Bilirubin Ql (U) Negative Negative [facility] Bilirubin.total [Mass/volume ] in Serum or PlasmaOrdered By: Kiya Riggins on 12-22-2023 Bilirubin [Mass/Vol] 0.4 mg/dL Normal 0.3-1.[address] [facility] Comment on above: Performed By: #### L IPID, [id number], TSH3 wRFLX, CMP, PSAS, CBC, FE and TIBC, B12 #### [address] abdomen pelvis w conon CT abdomen pelvis w con [facility] [place] [address] [place] [address] CT Scan Report Signed Patient: Gene Barahona MR#: [id number] : 1970 Acct:[id number] Age/Sex: 53 / M ADM Date: 12/22/23 Loc: ER Room: Type: [facility] ER Attending Dr: Copies to: LITA Pete Ordering Provider: LITA Pete Date of Service: 12/22/23 CT/CT abdomen pelvis w con: pancreatitits CT ABDOMEN AND PELVIS WITHOUT CONTRAST COMPARISON: 12/19/2023 CLINICAL DATA: Back pain and nausea. Spiral images were obtained through the abdomen and pelvis following 90 mL Isovue-300. This CT exam was performed using one or more following dose reduction techniques: Automated exposure control, adjustment of the mA and/or kV according to patient size, or use of iterative reconstruction technique. There is continued minor dependent atelectasis. The gallbladder surgically absent. Fatty infiltration of the liver is seen. Minor fibrotic stranding around the pancreatic head is again noted. The spleen, adrenal glands and left kidney are unremarkable. The right kidney is surgically absent. The abdominal aorta is normal caliber. There are small lymph nodes. No ascites is seen. There is no dilated small bowel. There is colonic stool. There are mild degenerative changes at the spine however no developing fractures. The pelvic small bowel loops are not dilated. There is prior appendectomy. There is distal colonic stool. There is no diverticulosis. No bladder abnormalities are seen. There is no ascites. Appearance of the pelvic bony structures are stable. CT/CT abdomen pelvis w con IMPRESSION: CONTINUED QUESTION OF ACUTE PANCREATITIS. FATTY LIVER. NO OTHER ACUTE FINDINGS OR INTERVAL CHANGE. Impression dictated by: Anita Henao M.D.12/22/2023 3:29 PM Dictation Location: [place] [address] Transcribed By: [facility] 12/22/23 1529 Dictated By: Anita Henao MD 12/22/23 1525 Signed By: 12/22/23 152 Normal [facility] Calcium [Mass/volume] in Ser um or PlasmaOrdered By: Kiya Riggins on 12-22-2023 Calcium [Mass/Vol] 9.2 mg/dL Normal 8.6-10.3 [facility] Comment on above: Performed By: #### L IPID, [id number], TSH3 wRFLX, CMP, PSAS, CBC, FE and TIBC, B12 #### [facility] [address] [place] [address] [place] Carbon dioxide, total [Moles /volume] in Serum or PlasmaOrdered By: Kiya Riggins on 12-22-2023 CO2 [Moles/Vol] 28.8 mmol/L Normal 21.0-31.0 [facility] Comment on above: Performed By: #### L IPID, [id number], TSH3 wRFLX, CMP, PSAS, CBC, FE and TIBC, B12 #### [facility] [address] [place] [address] [place] Chloride [Moles/volume] in S manohar or PlasmaOrdered By: Kiya Riggins on 12-22-2023 Chloride [Moles/Vol] 102 mmol/L Normal 98-[address] [facility] Comment on above: Performed By: #### L IPID, [id number], TSH3 wRFLX, CMP, PSAS, CBC, FE and TIBC, B12 #### [facility] [address] [place] [id number] [place] Color of Urine by AutoOrdere d By: Kiya Riggins on 12-22-2023 Color (U) Light-yellow Normal Yellow [facility] Comment on above: Order Comment: Reaso n for Exam Type 2 diabetes mellitus with other specified complication Reason for Exam Neuropathy Performed By: #### L IPID, [id number], TSH3 wRFLX, CMP, PSAS, CBC, FE and TIBC, B12 #### [address] Complete Blood Count Auto Di ffon 12-22-2023 Mean Corpuscular HGB Conc 34.8 g/dL Normal 32.5-35.6 [facility] Comment on above: Performed By: #### L IPID, [id number], TSH3 wRFLX, CMP, PSAS, CBC, FE and TIBC, B12 #### [address] Monocytes/100 WBC (Bld) 18.13 % Normal 0.00-20.00 [facility] Comment on above: Performed By: #### L IPID, [id number], TSH3 wRFLX, CMP, PSAS, CBC, FE and TIBC, B12 #### [address] NRBC% 0.0 /100{WBC} Normal 0-0.5 [facility] Comment on above: Performed By: #### L IPID, [id number], TSH3 wRFLX, CMP, PSAS, CBC, FE and TIBC, B12 #### [address] Comprehensive Metabolic Pane yumi 12-22-2023 Albumin [Mass/Vol] 4.3 g/dL Normal 3.5-5.7 [facility] Comment on above: Performed By: #### L IPID, [id number], TSH3 wRFLX, CMP, PSAS, CBC, FE and TIBC, B12 #### [address] Creatinine Clr Calc Pharmacy 80.80 Normal [facility] Comment on above: Performed By: #### L IPID, [id number], TSH3 wRFLX, CMP, PSAS, CBC, FE and TIBC, B12 #### [address] [place] [address] [place] GFR/1.73 sq M.predicted MDRD (S/P/Bld) [Vol rate/Area] mL/min/{1.73_m2} Normal [facility] Comment on above: Performed By: #### L IPID, [id number], TSH3 wRFLX, CMP, PSAS, CBC, FE and TIBC, B12 #### [facility] [address] Creatinine [Mass/volume] in Serum or PlasmaOrdered By: Kiya Riggins on 12-22-2023 Creatinine [Mass/Vol] 1.17 mg/dL Normal 0.70-1.30 [facility] Comment on above: Performed By: #### L IPID, [id number], TSH3 wRFLX, CMP, PSAS, CBC, FE and TIBC, B12 #### [facility] [address] Dipstick and Microscopicon 0 12-22-2023 Bacteria,Urine None Seen Normal None Seen [facility] Comment on above: Order Comment: Reaso n for Exam Type 2 diabetes mellitus with other specified complication Reason for Exam Neuropathy Performed By: #### L IPID, [id number], TSH3 wRFLX, CMP, PSAS, CBC, FE and TIBC, B12 #### [facility] [address] Bilirubin,Urine Negative Normal Negative [facility] Comment on above: Order Comment: Reaso n for Exam Type 2 diabetes mellitus with other specified complication Reason for Exam Neuropathy Performed By: #### L IPID, [id number], TSH3 wRFLX, CMP, PSAS, CBC, FE and TIBC, B12 #### [facility] [address] Glucose Ql (U) >=1000 High Normal [facility] Comment on above: Order Comment: Reaso n for Exam Type 2 diabetes mellitus with other specified complication Reason for Exam Neuropathy Performed By: #### L IPID, [id number], TSH3 wRFLX, CMP, PSAS, CBC, FE and TIBC, B12 #### [address] Hyaline Casts,Urine None Normal 0-8 [facility] Comment on above: Order Comment: Reaso n for Exam Type 2 diabetes mellitus with other specified complication Reason for Exam Neuropathy Result Comment: PERF ORMED BY: [place] [address] PATHOLOGIST [employer] ALYSSA MOSQUEDA M.D. Performed By: #### L IPID, [id number], TSH3 wRFLX, CMP, PSAS, CBC, FE and TIBC, B12 #### [address] Nitrite,Urine Negative Normal Negative [facility] Comment on above: Order Comment: Reaso n for Exam Type 2 diabetes mellitus with other specified complication Reason for Exam Neuropathy Performed By: #### L IPID, [id number], TSH3 wRFLX, CMP, PSAS, CBC, FE and TIBC, B12 #### [address] Occult Blood,Urine Negative Normal Negative [facility] Comment on above: Order Comment: Reaso n for Exam Type 2 diabetes mellitus with other specified complication Reason for Exam Neuropathy Result Comment: PERF ORMED BY: [place] [address] PATHOLOGIST [employer] ALYSSA MOSQUEDA M.D. Performed By: #### L IPID, [id number], TSH3 wRFLX, CMP, PSAS, CBC, FE and TIBC, B12 #### [address] RBC,Urine 1-2 Normal 0-4 [facility] Comment on above: Order Comment: Reaso n for Exam Type 2 diabetes mellitus with other specified complication Reason for Exam Neuropathy Performed By: #### L IPID, [id number], TSH3 wRFLX, CMP, PSAS, CBC, FE and TIBC, B12 #### [address] Specificy [place],Urine 1.018 Normal 1.001-1.03 0 [facility] Comment on above: Order Comment: Reaso n for Exam Type 2 diabetes mellitus with other specified complication Reason for Exam Neuropathy Performed By: #### L IPID, [id number], TSH3 wRFLX, CMP, PSAS, CBC, FE and TIBC, B12 #### [facility] [address] Urobilinogen,Urine 2 mg/dL High Normal [facility] Comment on above: Order Comment: Reaso n for Exam Type 2 diabetes mellitus with other specified complication Reason for Exam Neuropathy Performed By: #### L IPID, [id number], TSH3 wRFLX, CMP, PSAS, CBC, FE and TIBC, B12 #### [facility] [address] WBC,Urine 1-2 Normal 0-4 [facility] Comment on above: Order Comment: Reaso n for Exam Type 2 diabetes mellitus with other specified complication Reason for Exam Neuropathy Performed By: #### L IPID, [id number], TSH3 wRFLX, CMP, PSAS, CBC, FE and TIBC, B12 #### [facility] [address] Epithelial cells.squamous [# /area] in Urine sediment by Automated countOrdered By: Kiya Riggins on 12-22-2023 Epithelial cells.squamous Auto (Urine sed) [#/Area] N/A [facility] Erythrocyte distribution wid th [Ratio] by Automated countOrdered By: Kiya Riggins on 12-22-2023 Erythrocyte distribution width (RBC) [Ratio] 13.7 % Normal 12.0-14.8 [facility] Comment on above: Performed By: #### L IPID, [id number], TSH3 wRFLX, CMP, PSAS, CBC, FE and TIBC, B12 #### [facility] [address] [place] [address] Erythrocytes [#/area] in Uri ne sediment by Automated countOrdered By: Kiya Bullimore on 12-22-2023 RBC Auto (Urine sed) [#/Area] 1-2 [HPF] 0-4 [facility] Erythrocytes [#/volume] in B lood by Automated countOrdered By: Kiya Riggins on 12-22-2023 RBC (Bld) [#/Vol] 5.23 10*6/uL Normal 3.90-5.60 [facility] Comment on above: Performed By: #### L IPID, [id number], TSH3 wRFLX, CMP, PSAS, CBC, FE and TIBC, B12 #### [facility] [address] [place] [id number] [place] Glucose Poct Glucometerson 0 12-22-2023 Glucose [Mass/Vol] 97 mg/dL Normal [facility] Comment on above: Result Comment: [place] om Glucose Reference Range is dependent on time and content of last meal. Glucose of more than 200 mg/dL in a nonstressed, ambulatory subject supports the diagnosis of Diabetes Mellitus. PERFORMED BY: [place] [address] PATHOLOGIST [employer] ALYSSA MOSQUEDA M.D. Performed By: #### L IPID, [id number], TSH3 wRFLX, CMP, PSAS, CBC, FE and TIBC, B12 #### [facility] [address] [place] [address] [place] Glucose [Mass/volume] in Ser um or PlasmaOrdered By: Kiya Riggins on 12-22-2023 Glucose [Mass/Vol] 164 mg/dL High 70-100 [facility] Comment on above: ADA recommended refe rence rangeRandom Glucose Reference Range is dependent on time and content of last meal. Glucose of more than 200 mg/dL in a nonstressed, ambulatory subject supports the diagnosis of Diabetes Mellitus. Result Comment: [place] om Glucose Reference Range is dependent on time and content of last meal. Glucose of more than 200 mg/dL in a nonstressed, ambulatory subject supports the diagnosis of Diabetes Mellitus. ADA recommended reference range Performed By: #### L IPID, [id number], TSH3 wRFLX, CMP, PSAS, CBC, FE and TIBC, B12 #### [facility] [address] [place] [address] [place] Glucose [Mass/volume] in Uri ne by Test stripOrdered By: Kiya Riggins on 12-22-2023 Glucose Test strip (U) [Mass/Vol] >=1000 mg/dL High Normal [facility] Hematocrit [Volume Fraction] of Blood by Automated countOrdered By: Kiya Riggins on 12-22-2023 Hematocrit (Bld) [Volume fraction] 45.3 % Normal 38.8-50.0 [facility] Comment on above: Performed By: #### L IPID, [id number], TSH3 wRFLX, CMP, PSAS, CBC, FE and TIBC, B12 #### [facility] [address] Hemoglobin Test strip Ql (U) Ordered By: Kiya Riggins on 12-22-2023 Hemoglobin Ql (U) Negative Negative [facility] Hemoglobin [Mass/volume] in BloodOrdered By: Kiya Riggins on 12-22-2023 Hemoglobin (Bld) [Mass/Vol] 15.8 g/dL Normal 13.0-17.0 [facility] Comment on above: Performed By: #### L IPID, [id number], TSH3 wRFLX, CMP, PSAS, CBC, FE and TIBC, B12 #### [facility] [address] [place] [address] [place] Hyaline casts [#/area] in Ur ine sediment by Automated countOrdered By: Kiya Riggins on 12-22-2023 Hyaline casts Auto (Urine sed) [#/Area] None [LPF] 0-8 [facility] Ketones [Presence] in Urine by Test stripOrdered By: Kiya Riggins on 12-22-2023 Ketones Ql (U) Negative Normal Negative [facility] Comment on above: Order Comment: Reaso n for Exam Type 2 diabetes mellitus with other specified complication Reason for Exam Neuropathy Performed By: #### L IPID, [id number], TSH3 wRFLX, CMP, PSAS, CBC, FE and TIBC, B12 #### [facility] [address] [place] [address] [place] Leukocyte esterase [Presence ] in Urine by Test stripOrdered By: Kiya Riggins on 12-22-2023 Leukocyte esterase Test strip Ql (U) Negative Normal Negative [facility] Comment on above: Order Comment: Reaso n for Exam Type 2 diabetes mellitus with other specified complication Reason for Exam Neuropathy Performed By: #### L IPID, [id number], TSH3 wRFLX, CMP, PSAS, CBC, FE and TIBC, B12 #### [facility] [address] [place] [address] [place] Leukocytes [#/area] in Urine sediment by Automated countOrdered By: Kiya Riggins on 12-22-2023 WBC Auto (Urine sed) [#/Area] 1-2 [HPF] 0-4 [facility] Leukocytes [#/volume] correc janelle for nucleated erythrocytes in Blood by Automated counOrdered By: Kiya Riggins on 12-22-2023 WBC corrected for nucl RBC Auto (Bld) [#/Vol] 8.6 10*3/uL 4.1-10.5 [facility] Leukocytes [#/volume] in Blo od by Automated countOrdered By: Kiya Riggins on 12-22-2023 WBC (Bld) [#/Vol] 8.6 10*3/uL Normal 4.1-10.5 [facility] Comment on above: Performed By: #### L IPID, [id number], TSH3 wRFLX, CMP, PSAS, CBC, FE and TIBC, B12 #### [facility] [address] [place] [address] [place] Lipase [Enzymatic activity/v olume] in Serum or PlasmaOrdered By: Kiya Riggins on 12-22-2023 Lipase [Catalytic activity/Vol] 99.0 U/L High 11.0-82.0 [facility] Comment on above: Result Comment: PERF ORMED BY: [place] [address] PATHOLOGIST [employer] ALYSSA MOSQUEDA M.D. Performed By: #### L IPID, [id number], TSH3 wRFLX, CMP, PSAS, CBC, FE and TIBC, B12 #### [facility] [address] [place] [address] [place] Lymphocytes [#/volume] in Bl ood by Automated countOrdered By: Kiya Gomezimore on 12-22-2023 Lymphocytes (Bld) [#/Vol] 2.4 10*3/uL Normal 1.00-4.8 [facility] Comment on above: Performed By: #### L IPID, [id number], TSH3 wRFLX, CMP, PSAS, CBC, FE and TIBC, B12 #### [facility] [address] [place] [address] [place] Lymphocytes/100 leukocytes i n Blood by Automated countOrdered By: Kiya Gomezimore on 12-22-2023 Lymphocytes/100 WBC (Bld) 28.0 % Normal . [facility] Comment on above: Performed By: #### L IPID, [id number], TSH3 wRFLX, CMP, PSAS, CBC, FE and TIBC, B12 #### [address] MCH [Entitic mass] by Automa janelle countOrdered By: Kiya Riggins on 12-22-2023 MCH (RBC) [Entitic mass] 30.2 pg Normal 27.5-35.2 [facility] Comment on above: Performed By: #### L IPID, [id number], TSH3 wRFLX, CMP, PSAS, CBC, FE and TIBC, B12 #### [address] MCHC Auto (RBC) [Mass/Vol]Or dered By: Kiya Gomezimore on 12-22-2023 MCHC (RBC) [Mass/Vol] 34.8 g/dL 32.5-35.6 [facility] MCV [Entitic volume] by Auto mated countOrdered By: Kiya Riggins on 12-22-2023 MCV (RBC) [Entitic vol] 86.6 fL Normal 83.5-101 [facility] Comment on above: Performed By: #### L IPID, [id number], TSH3 wRFLX, CMP, PSAS, CBC, FE and TIBC, B12 #### [address] Monocyte distribution width [Entitic volume] in Blood by AutomatedOrdered By: Kiya Riggins on 12-22-2023 Monocyte distribution width Auto (Bld) [Entitic vol] 18.13 % 0.00-20.00 [facility] Neutrophils [#/volume] in Bl ood by Automated countOrdered By: Kiya Riggins on 12-22-2023 Neutrophils (Bld) [#/Vol] 5.4 10*3/uL Normal 1.8-7.7 [facility] Comment on above: Performed By: #### L IPID, [id number], TSH3 wRFLX, CMP, PSAS, CBC, FE and TIBC, B12 #### [facility] [address] Nitrite Test strip Ql (U)Ord ered By: Kiya Riggins on 12-22-2023 Nitrite Ql (U) Negative Negative [facility] No Panel InformationOrdered By: Kiya Riggins on 12-22-2023 Estimated GFR (CKD-EPI) > 60.0 mL/Min [facility] Creatinine Clearance (Chem 80.80 [facility] Nucleated erythrocytes [Pres ence] in Blood by Automated countOrdered By: Kiya Riggins on 12-22-2023 Nucleated RBC Auto Ql (Bld) 0.0 /100{WBC} 0-0.5 [facility] Platelet mean volume [Entiti c volume] in Blood by Automated countOrdered By: Kiya Riggins on 12-22-2023 Platelet mean volume (Bld) [Entitic vol] 9.0 fL Normal 6.6-10.1 [facility] Comment on above: Performed By: #### L IPID, [id number], TSH3 wRFLX, CMP, PSAS, CBC, FE and TIBC, B12 #### [facility] [address] [place] [address] [place] Platelets [#/volume] in Bloo d by Automated countOrdered By: Kiya Riggins on 12-22-2023 Platelets (Bld) [#/Vol] 180 10*3/uL Normal 150-450 [facility] Comment on above: Performed By: #### L IPID, [id number], TSH3 wRFLX, CMP, PSAS, CBC, FE and TIBC, B12 #### [facility] [address] [place] [address] [place] Potassium [Moles/volume] in Serum or PlasmaOrdered By: Kiya Bullimore on 12-22-2023 Potassium [Moles/Vol] 3.8 mmol/L Normal 3.5-5.1 [facility] Comment on above: Hemolysis is present at a level that could interfere with the result.Contact lab if redraw is required Result Comment: Hemo lysis is present at a level that could interfere with the result. Contact lab if redraw is required Performed By: #### L IPID, [id number], TSH3 wRFLX, CMP, PSAS, CBC, FE and TIBC, B12 #### [place] [id number] [place] Protein [Mass/volume] in Ser um or PlasmaOrdered By: Kiya Riggins on 12-22-2023 Protein [Mass/Vol] 7.3 g/dL Normal 6.4-8.9 [facility] Comment on above: Performed By: #### L IPID, [id number], TSH3 wRFLX, CMP, PSAS, CBC, FE and TIBC, B12 #### [facility] [address] [place] [id number] [facility] Protein [Mass/volume] in Uri ne by Test stripOrdered By: Kiya Riggins on 12-22-2023 Protein (U) [Mass/Vol] 30 mg/dL High Negative [facility] [place] Comment on above: Order Comment: Reaso n for Exam Type 2 diabetes mellitus with other specified complication Reason for Exam Neuropathy Performed By: #### L IPID, [id number], TSH3 wRFLX, CMP, PSAS, CBC, FE and TIBC, B12 #### [facility] [address] [place] [id number] [facility] Serum globulin measurement b y calculation (mass/volume)Ordered By: Kiya Riggins on 12-22-2023 Globulin (S) [Mass/Vol] 3.0 g/dL [facility] Comment on above: Performed By: #### L IPID, [id number], TSH3 wRFLX, CMP, PSAS, CBC, FE and TIBC, B12 #### [facility] [address] Serum or plasma albumin/glob ulin mass ratioOrdered By: Kiya Bullimore on 12-22-2023 Albumin/Globulin [Mass ratio] 1.4 {ratio} Normal [facility] Comment on above: Performed By: #### L IPID, [id number], TSH3 wRFLX, CMP, PSAS, CBC, FE and TIBC, B12 #### [facility] [address] Serum or plasma anion gap de terminationOrdered By: Kiya Bullimore on 12-22-2023 Anion gap [Moles/Vol] 11.0 mmol/L Normal 6.0-15.0 [facility] [place] Comment on above: Performed By: #### L IPID, [id number], TSH3 wRFLX, CMP, PSAS, CBC, FE and TIBC, B12 #### [facility] [address] [place] [address] Sodium [Moles/volume] in Ser um or PlasmaOrdered By: Kiya Bullimore on 12-22-2023 Sodium [Moles/Vol] 138 mmol/L Normal 136-145 [facility] Comment on above: Performed By: #### L IPID, [id number], TSH3 wRFLX, CMP, PSAS, CBC, FE and TIBC, B12 #### [facility] [address] Specific gravity Test strip (U) [Rel density]Ordered By: Kiya Bullimore on 12-22-2023 Specific gravity (U) [Rel density] 1.018 1.001-1.03 0 [facility] Urea nitrogen [Mass/volume] in Serum or PlasmaOrdered By: Kiya Bullimore on 12-22-2023 Urea nitrogen [Mass/Vol] 15 mg/dL Normal 7-25 [facility] Comment on above: Performed By: #### L IPID, [id number], TSH3 wRFLX, CMP, PSAS, CBC, FE and TIBC, B12 #### [facility] [address] Urine appearanceOrdered By: Kiya Riggins on 12-22-2023 Appearance (U) Clear Normal Clear [facility] Comment on above: Order Comment: Reaso n for Exam Type 2 diabetes mellitus with other specified complication Reason for Exam Neuropathy Performed By: #### L IPID, [id number], TSH3 wRFLX, CMP, PSAS, CBC, FE and TIBC, B12 #### [facility] [address] Urobilinogen Test strip (U) [Mass/Vol]Ordered By: Kiya Riggins on 12-22-2023 Urobilinogen (U) [Mass/Vol] 2 mg/dL High Normal [facility] pH of Urine by Test stripOrd ered By: Kiya Riggins on 12-22-2023 pH (U) 7.0 [pH] Normal 5.0-9.0 [facility] Comment on above: Order Comment: Reaso n for Exam Type 2 diabetes mellitus with other specified complication Reason for Exam Neuropathy Performed By: #### L IPID, [id number], TSH3 wRFLX, CMP, PSAS, CBC, FE and TIBC, B12 #### [facility] [address] [place] [address] Alanine aminotransferase [En zymatic activity/volume] in Serum or PlasmaOrdered By: PROVIDER TEMP on 12-20-2023 ALT [Catalytic activity/Vol] 32 U/L Normal 7-52 [facility] Comment on above: Performed By: #### L IPID, [id number], TSH3 wRFLX, CMP, PSAS, CBC, FE and TIBC, B12 #### [facility] [address] [place] [address] Albumin [Mass/volume] in Ser um or Plasma by Bromocresol green (BCG) dye binding methoOrdered By: PROVIDER TEMP on 12-20-2023 Albumin BCG dye [Mass/Vol] 4.7 g/dL 3.5-5.7 [facility] Alkaline phosphatase [Enzyma tic activity/volume] in Serum or PlasmaOrdered By: PROVIDER TEMP on 12-20-2023 ALP [Catalytic activity/Vol] 112 U/L High 34-104 [facility] Comment on above: Performed By: #### L IPID, [id number], TSH3 wRFLX, CMP, PSAS, CBC, FE and TIBC, B12 #### [facility] [address] [place] [address] Aspartate aminotransferase [ Enzymatic activity/volume] in Serum or PlasmaOrdered By: PROVIDER TEMP on 12-20-2023 AST [Catalytic activity/Vol] 22 U/L Normal 13-39 [facility] Comment on above: Performed By: #### L IPID, [id number], TSH3 wRFLX, CMP, PSAS, CBC, FE and TIBC, B12 #### [address] Automated basophil %Ordered By: PROVIDER TEMP on 12-20-2023 Basophils/100 WBC (Bld) 0.8 % Normal . [facility] Comment on above: Performed By: #### L IPASE, BMP, CBC, HEPATIC #### [facility] [address] [place] [address] Automated basophil countOrde red By: PROVIDER TEMP on 12-20-2023 Basophils (Bld) [#/Vol] 0.1 10*3/uL Normal 0.0-0.2 [facility] Comment on above: Result Comment: PERF ORMED BY: [place] [address] PATHOLOGIST [employer] ALYSSA MOSQUEDA M.D. Performed By: #### L IPASE, BMP, CBC, HEPATIC #### [facility] [address] [place] [address] Automated blood monocyte cou ntOrdered By: PROVIDER TEMP on 12-20-2023 Monocytes (Bld) [#/Vol] 0.7 10*3/uL Normal 0.0-0.8 [facility] Comment on above: Performed By: #### L IPASE, BMP, CBC, HEPATIC #### [facility] [address] Automated eosinophil %Ordere d By: PROVIDER TEMP on 12-20-2023 Eosinophils/100 WBC (Bld) 2.4 % Normal . [facility] Comment on above: Performed By: #### L IPASE, BMP, CBC, HEPATIC #### [facility] [address] Automated eosinophil countOr dered By: PROVIDER TEMP on 12-20-2023 Eosinophils (Bld) [#/Vol] 0.2 10*3/uL Normal 0.0-0.45 [facility] Comment on above: Performed By: #### L IPASE, BMP, CBC, HEPATIC #### [facility] [address] Automated monocyte %Ordered By: PROVIDER TEMP on 12-20-2023 Monocytes/100 WBC (Bld) 7.6 % Normal . [facility] Comment on above: Performed By: #### L IPASE, BMP, CBC, HEPATIC #### [facility] [address] Automated neutrophil %Ordere d By: PROVIDER TEMP on 12-20-2023 Neutrophils/100 WBC (Bld) 62.5 % Normal . [facility] Comment on above: Performed By: #### L IPASE, BMP, CBC, HEPATIC #### [facility] [address] [place] [address] Bacteria [Presence] in Urine by AutomatedOrdered By: PROVIDER TEMP on 12-20-2023 Bacteria Auto Ql (U) None seen [HPF] None Seen [facility] Basic Metabolic Panelon Creatinine Clr Calc Pharmacy 59.94 Normal [facility] Comment on above: Performed By: #### L IPID, [id number], TSH3 wRFLX, CMP, PSAS, CBC, FE and TIBC, B12 #### [facility] [address] [place] [address] GFR/1.73 sq M.predicted MDRD (S/P/Bld) [Vol rate/Area] 49.453 mL/min/{1.73_m2} Normal [facility] Comment on above: Performed By: #### L IPID, [id number], TSH3 wRFLX, CMP, PSAS, CBC, FE and TIBC, B12 #### [facility] [address] Bilirubin Test strip Ql (U)O rdered By: PROVIDER TEMP on 12-20-2023 Bilirubin Ql (U) Negative Negative [facility] Bilirubin.direct [Mass/volum e] in Serum or PlasmaOrdered By: PROVIDER TEMP on 12-20-2023 Bilirubin.direct [Mass/Vol] 0.10 mg/dL 0.03-0.18 [facility] Bilirubin.total [Mass/volume ] in Serum or PlasmaOrdered By: PROVIDER TEMP on 12-20-2023 Bilirubin [Mass/Vol] 0.7 mg/dL Normal 0.3-1.[address] [facility] Comment on above: Performed By: #### L IPID, [id number], TSH3 wRFLX, CMP, PSAS, CBC, FE and TIBC, B12 #### [facility] [address] [place] [address] [place] Calcium [Mass/volume] in Ser um or PlasmaOrdered By: PROVIDER TEMP on 12-20-2023 Calcium [Mass/Vol] 9.7 mg/dL Normal 8.6-10.3 [facility] Comment on above: Performed By: #### L IPID, [id number], TSH3 wRFLX, CMP, PSAS, CBC, FE and TIBC, B12 #### [facility] [address] [place] [address] [place] Carbon dioxide, total [Moles /volume] in Serum or PlasmaOrdered By: PROVIDER TEMP on 12-20-2023 CO2 [Moles/Vol] 28.0 mmol/L Normal 21.0-31.0 [facility] Comment on above: Performed By: #### L IPID, [id number], TSH3 wRFLX, CMP, PSAS, CBC, FE and TIBC, B12 #### [place] [address] [place] Chloride [Moles/volume] in S manohar or PlasmaOrdered By: PROVIDER TEMP on 12-20-2023 Chloride [Moles/Vol] 97 mmol/L Low 98-[address] [facility] Comment on above: Performed By: #### L IPID, [id number], TSH3 wRFLX, CMP, PSAS, CBC, FE and TIBC, B12 #### [facility] [address] [place] [address] [place] Color of Urine by AutoOrdere d By: PROVIDER TEMP on 12-20-2023 Color (U) Light-yellow Normal Yellow [facility] Comment on above: Order Comment: Reaso n for Exam Type 2 diabetes mellitus with other specified complication Reason for Exam Neuropathy Performed By: #### L IPID, [id number], TSH3 wRFLX, CMP, PSAS, CBC, FE and TIBC, B12 #### [facility] [address] Complete Blood Count Auto Di ffon 12-20-2023 Mean Corpuscular HGB Conc 34.6 g/dL Normal 32.5-35.6 [facility] Comment on above: Performed By: #### L IPASE, BMP, CBC, HEPATIC #### [facility] [address] [place] [address] [place] Monocytes/100 WBC (Bld) 20.73 % High 0.00-20.00 [facility] Comment on above: Result Comment: For adults in ED, MDW > 20.0 may be associated with a higher risk of sepsis during the first 12 hrs of hospital admission Performed By: #### L IPASE, BMP, CBC, HEPATIC #### [facility] [address] [place] [address] [place] NRBC% 0.1 /100{WBC} Normal 0-0.5 [facility] Comment on above: Performed By: #### L IPASE, BMP, CBC, HEPATIC #### [facility] [address] [place] [address] [place] Creatinine [Mass/volume] in Serum or PlasmaOrdered By: PROVIDER TEMP on 12-20-2023 Creatinine [Mass/Vol] 1.63 mg/dL High 0.70-1.30 [facility] Comment on above: Performed By: #### L IPID, [id number], TSH3 wRFLX, CMP, PSAS, CBC, FE and TIBC, B12 #### [facility] [address] Dipstick and Microscopicon 0 12-20-2023 Bacteria,Urine None Seen Normal None Seen [facility] Comment on above: Order Comment: Reaso n for Exam Type 2 diabetes mellitus with other specified complication Reason for Exam Neuropathy Performed By: #### L IPID, [id number], TSH3 wRFLX, CMP, PSAS, CBC, FE and TIBC, B12 #### [facility] [address] Bilirubin,Urine Negative Normal Negative [facility] Comment on above: Order Comment: Reaso n for Exam Type 2 diabetes mellitus with other specified complication Reason for Exam Neuropathy Performed By: #### L IPID, [id number], TSH3 wRFLX, CMP, PSAS, CBC, FE and TIBC, B12 #### [facility] [address] Glucose Ql (U) >=1000 High Normal [facility] Comment on above: Order Comment: Reaso n for Exam Type 2 diabetes mellitus with other specified complication Reason for Exam Neuropathy Performed By: #### L IPID, [id number], TSH3 wRFLX, CMP, PSAS, CBC, FE and TIBC, B12 #### [facility] [address] Hyaline Casts,Urine 0-8 Normal 0-8 [facility] Comment on above: Order Comment: Reaso n for Exam Type 2 diabetes mellitus with other specified complication Reason for Exam Neuropathy Performed By: #### L IPID, [id number], TSH3 wRFLX, CMP, PSAS, CBC, FE and TIBC, B12 #### [facility] [address] Mucus,Urine Rare Normal [facility] Comment on above: Order Comment: Reaso n for Exam Type 2 diabetes mellitus with other specified complication Reason for Exam Neuropathy Result Comment: PERF ORMED BY: [place] [address] PATHOLOGIST [employer] ALYSSA MOSQUEDA M.D. Performed By: #### L IPID, [id number], TSH3 wRFLX, CMP, PSAS, CBC, FE and TIBC, B12 #### [facility] [address] [place] [address] Nitrite,Urine Negative Normal Negative [facility] Comment on above: Order Comment: Reaso n for Exam Type 2 diabetes mellitus with other specified complication Reason for Exam Neuropathy Performed By: #### L IPID, [id number], TSH3 wRFLX, CMP, PSAS, CBC, FE and TIBC, B12 #### [address] Occult Blood,Urine Negative Normal Negative [facility] Comment on above: Order Comment: Reaso n for Exam Type 2 diabetes mellitus with other specified complication Reason for Exam Neuropathy Result Comment: PERF ORMED BY: [place] [address] PATHOLOGIST [employer] ALYSSA MOSQUEDA M.D. Performed By: #### L IPID, [id number], TSH3 wRFLX, CMP, PSAS, CBC, FE and TIBC, B12 #### [address] RBC,Urine 1-2 Normal 0-4 [facility] Comment on above: Order Comment: Reaso n for Exam Type 2 diabetes mellitus with other specified complication Reason for Exam Neuropathy Performed By: #### L IPID, [id number], TSH3 wRFLX, CMP, PSAS, CBC, FE and TIBC, B12 #### [facility] [address] [place] [address] [place] Specificy [place],Urine 1.025 Normal 1.001-1.03 0 [facility] Comment on above: Order Comment: Reaso n for Exam Type 2 diabetes mellitus with other specified complication Reason for Exam Neuropathy Performed By: #### L IPID, [id number], TSH3 wRFLX, CMP, PSAS, CBC, FE and TIBC, B12 #### [facility] [address] Squamous Epithelial Cell,Urine 1-2 Normal 0-2 [facility] Comment on above: Order Comment: Reaso n for Exam Type 2 diabetes mellitus with other specified complication Reason for Exam Neuropathy Performed By: #### L IPID, [id number], TSH3 wRFLX, CMP, PSAS, CBC, FE and TIBC, B12 #### [facility] [address] Urobilinogen,Urine Normal Normal Normal [facility] Comment on above: Order Comment: Reaso n for Exam Type 2 diabetes mellitus with other specified complication Reason for Exam Neuropathy Performed By: #### L IPID, [id number], TSH3 wRFLX, CMP, PSAS, CBC, FE and TIBC, B12 #### [facility] [address] [place] [address] WBC,Urine 1-2 Normal 0-4 [facility] Comment on above: Order Comment: Reaso n for Exam Type 2 diabetes mellitus with other specified complication Reason for Exam Neuropathy Performed By: #### L IPID, [id number], TSH3 wRFLX, CMP, PSAS, CBC, FE and TIBC, B12 #### [address] Epithelial cells.squamous [# /area] in Urine sediment by Automated countOrdered By: PROVIDER TEMP on 12-20-2023 Epithelial cells.squamous Auto (Urine sed) [#/Area] 1-2 [HPF] 0-2 [facility] Erythrocyte distribution wid th [Ratio] by Automated countOrdered By: PROVIDER TEMP on 12-20-2023 Erythrocyte distribution width (RBC) [Ratio] 13.6 % Normal 12.0-14.8 [facility] Comment on above: Performed By: #### L IPASE, BMP, CBC, HEPATIC #### [facility] [address] [place] [address] Erythrocytes [#/area] in Uri ne sediment by Automated countOrdered By: PROVIDER TEMP on 12-20-2023 RBC Auto (Urine sed) [#/Area] 1-2 [HPF] 0-4 [facility] Erythrocytes [#/volume] in B lood by Automated countOrdered By: PROVIDER TEMP on 12-20-2023 RBC (Bld) [#/Vol] 5.31 10*6/uL Normal 3.90-5.60 [facility] Comment on above: Performed By: #### L IPASE, BMP, CBC, HEPATIC #### [facility] [address] [place] [address] [place] Glucose [Mass/volume] in Ser um or PlasmaOrdered By: PROVIDER TEMP on 12-20-2023 Glucose [Mass/Vol] 237 mg/dL Significant change up 70-100 [facility] Comment on above: [place]: 499 on -5ADA recommended reference rangeRandom Glucose Reference Range is dependent on time and content of last meal. Glucose of more than 200 mg/dL in a nonstressed, ambulatory subject supports the diagnosis of Diabetes Mellitus. Result Comment: [place] om Glucose Reference Range is dependent on time and content of last meal. Glucose of more than 200 mg/dL in a nonstressed, ambulatory subject supports the diagnosis of Diabetes Mellitus. ADA recommended reference range Performed By: #### L IPID, [id number], TSH3 wRFLX, CMP, PSAS, CBC, FE and TIBC, B12 #### [facility] [address] [place] [address] [place] Glucose [Mass/volume] in Uri ne by Test stripOrdered By: PROVIDER TEMP on 12-20-2023 Glucose Test strip (U) [Mass/Vol] >=1000 mg/dL High Normal [facility] Hematocrit [Volume Fraction] of Blood by Automated countOrdered By: PROVIDER TEMP on 12-20-2023 Hematocrit (Bld) [Volume fraction] 46.0 % Normal 38.8-50.0 [facility] Comment on above: Performed By: #### L IPASE, BMP, CBC, HEPATIC #### [facility] [address] [place] [address] [facility] Hemoglobin Test strip Ql (U) Ordered By: PROVIDER TEMP on 12-20-2023 Hemoglobin Ql (U) Negative Negative [facility] Hemoglobin [Mass/volume] in BloodOrdered By: PROVIDER TEMP on 12-20-2023 Hemoglobin (Bld) [Mass/Vol] 15.9 g/dL Normal 13.0-17.0 [facility] Comment on above: Performed By: #### L IPASE, BMP, CBC, HEPATIC #### [facility] [address] Hepatic Panelon 12-20-2023 Albumin [Mass/Vol] 4.7 g/dL Normal 3.5-5.7 [facility] Comment on above: Performed By: #### L IPID, [id number], TSH3 wRFLX, CMP, PSAS, CBC, FE and TIBC, B12 #### [address] Bilirubin,Indirect 0.6 mg/dL Normal [facility] Comment on above: Performed By: #### L IPID, [id number], TSH3 wRFLX, CMP, PSAS, CBC, FE and TIBC, B12 #### [address] Bilirubin.indirect [Mass/Vol] 0.10 mg/dL Normal 0.03-0.18 [facility] Comment on above: Performed By: #### L IPID, [id number], TSH3 wRFLX, CMP, PSAS, CBC, FE and TIBC, B12 #### [address] Hyaline casts [#/area] in Ur ine sediment by Automated countOrdered By: PROVIDER TEMP on 12-20-2023 Hyaline casts Auto (Urine sed) [#/Area] 0-8 [LPF] 0-8 [facility] Ketones [Presence] in Urine by Test stripOrdered By: PROVIDER TEMP on 12-20-2023 Ketones Ql (U) Negative Normal Negative [facility] Comment on above: Order Comment: Reaso n for Exam Type 2 diabetes mellitus with other specified complication Reason for Exam Neuropathy Performed By: #### L IPID, [id number], TSH3 wRFLX, CMP, PSAS, CBC, FE and TIBC, B12 #### [address] [place] [address] [place] Leukocyte esterase [Presence ] in Urine by Test stripOrdered By: PROVIDER TEMP on 12-20-2023 Leukocyte esterase Test strip Ql (U) Negative Normal Negative [facility] Comment on above: Order Comment: Reaso n for Exam Type 2 diabetes mellitus with other specified complication Reason for Exam Neuropathy Performed By: #### L IPID, [id number], TSH3 wRFLX, CMP, PSAS, CBC, FE and TIBC, B12 #### [place] [address] [place] Leukocytes [#/area] in Urine sediment by Automated countOrdered By: PROVIDER TEMP on 12-20-2023 WBC Auto (Urine sed) [#/Area] 1-2 [HPF] 0-4 [facility] Leukocytes [#/volume] correc janelle for nucleated erythrocytes in Blood by Automated counOrdered By: PROVIDER TEMP on 12-20-2023 WBC corrected for nucl RBC Auto (Bld) [#/Vol] 8.7 10*3/uL 4.1-10.5 [facility] Leukocytes [#/volume] in Blo od by Automated countOrdered By: PROVIDER TEMP on 12-20-2023 WBC (Bld) [#/Vol] 8.7 10*3/uL Normal 4.1-10.5 [facility] Comment on above: Performed By: #### L IPASE, BMP, CBC, HEPATIC #### [facility] [address] [place] [address] [place] Lipase [Enzymatic activity/v olume] in Serum or PlasmaOrdered By: PROVIDER TEMP on 12-20-2023 Lipase [Catalytic activity/Vol] 81.0 U/L Normal 11.0-82.0 [facility] Comment on above: Result Comment: PERF ORMED BY: [place] [address] PATHOLOGIST [employer] ALYSSA MOSQUEDA M.D. Performed By: #### L IPID, [id number], TSH3 wRFLX, CMP, PSAS, CBC, FE and TIBC, B12 #### [address] [place] [address] [place] Lymphocytes [#/volume] in Bl ood by Automated countOrdered By: PROVIDER TEMP on 12-20-2023 Lymphocytes (Bld) [#/Vol] 2.3 10*3/uL Normal 1.00-4.8 [facility] Comment on above: Performed By: #### L IPASE, BMP, CBC, HEPATIC #### [facility] [address] [place] [address] Lymphocytes/100 leukocytes i n Blood by Automated countOrdered By: PROVIDER TEMP on 12-20-2023 Lymphocytes/100 WBC (Bld) 26.7 % Normal . [facility] Comment on above: Performed By: #### L IPASE, BMP, CBC, HEPATIC #### [address] MCH [Entitic mass] by Automa janelle countOrdered By: PROVIDER TEMP on 12-20-2023 MCH (RBC) [Entitic mass] 29.9 pg Normal 27.5-35.2 [facility] Comment on above: Performed By: #### L IPASE, BMP, CBC, HEPATIC #### [facility] [address] [place] [address] MCHC Auto (RBC) [Mass/Vol]Or dered By: PROVIDER TEMP on 12-20-2023 MCHC (RBC) [Mass/Vol] 34.6 g/dL 32.5-35.6 [facility] MCV [Entitic volume] by Auto mated countOrdered By: PROVIDER TEMP on 12-20-2023 MCV (RBC) [Entitic vol] 86.5 fL Normal 83.5-101 [facility] Comment on above: Performed By: #### L IPASE, BMP, CBC, HEPATIC #### [facility] [address] [place] [address] Monocyte distribution width [Entitic volume] in Blood by AutomatedOrdered By: PROVIDER TEMP on 12-20-2023 Monocyte distribution width Auto (Bld) [Entitic vol] 20.73 % High 0.00-20.00 [facility] Comment on above: For adults in ED, MD W > 20.0 may be associated with a higher risk of sepsis during the first 12 hrs of hospital admission Mucus [Presence] in Urine by AutomatedOrdered By: PROVIDER TEMP on 12-20-2023 Mucus Auto Ql (U) Rare [LPF] [facility] Neutrophils [#/volume] in Bl ood by Automated countOrdered By: PROVIDER TEMP on 12-20-2023 Neutrophils (Bld) [#/Vol] 5.4 10*3/uL Normal 1.8-7.7 [facility] Comment on above: Performed By: #### L IPASE, BMP, CBC, HEPATIC #### [facility] [address] Nitrite Test strip Ql (U)Ord ered By: PROVIDER TEMP on 12-20-2023 Nitrite Ql (U) Negative Negative [facility] No Panel InformationOrdered By: PROVIDER TEMP on 12-20-2023 Estimated GFR (CKD-EPI) 49.453 mL/Min [facility] Creatinine Clearance (Chem 59.94 [facility] Nucleated erythrocytes [Pres ence] in Blood by Automated countOrdered By: PROVIDER TEMP on 12-20-2023 Nucleated RBC Auto Ql (Bld) 0.1 /100{WBC} 0-0.5 [facility] Platelet mean volume [Entiti c volume] in Blood by Automated countOrdered By: PROVIDER TEMP on 12-20-2023 Platelet mean volume (Bld) [Entitic vol] 8.9 fL Normal 6.6-10.1 [facility] Comment on above: Performed By: #### L IPASE, BMP, CBC, HEPATIC #### [facility] [address] [place] [address] [place] Platelets [#/volume] in Bloo d by Automated countOrdered By: PROVIDER TEMP on 12-20-2023 Platelets (Bld) [#/Vol] 175 10*3/uL Normal 150-450 [facility] Comment on above: Performed By: #### L IPASE, BMP, CBC, HEPATIC #### [facility] [address] [place] [id number] [place] Potassium [Moles/volume] in Serum or PlasmaOrdered By: PROVIDER TEMP on 12-20-2023 Potassium [Moles/Vol] 4.0 mmol/L Normal 3.5-5.1 [facility] Comment on above: Performed By: #### L IPID, [id number], TSH3 wRFLX, CMP, PSAS, CBC, FE and TIBC, B12 #### [facility] [address] Protein [Mass/volume] in Ser um or PlasmaOrdered By: PROVIDER TEMP on 12-20-2023 Protein [Mass/Vol] 7.8 g/dL Normal 6.4-8.9 [facility] Comment on above: Performed By: #### L IPID, [id number], TSH3 wRFLX, CMP, PSAS, CBC, FE and TIBC, B12 #### [facility] [address] Protein [Mass/volume] in Uri ne by Test stripOrdered By: PROVIDER TEMP on 12-20-2023 Protein (U) [Mass/Vol] 70 mg/dL High Negative [facility] Comment on above: Order Comment: Reaso n for Exam Type 2 diabetes mellitus with other specified complication Reason for Exam Neuropathy Performed By: #### L IPID, [id number], TSH3 wRFLX, CMP, PSAS, CBC, FE and TIBC, B12 #### [facility] [address] Serum globulin measurement b y calculation (mass/volume)Ordered By: PROVIDER TEMP on 12-20-2023 Globulin (S) [Mass/Vol] 3.1 g/dL [facility] Comment on above: Performed By: #### L IPID, [id number], TSH3 wRFLX, CMP, PSAS, CBC, FE and TIBC, B12 #### [facility] [address] Serum or plasma albumin/glob ulin mass ratioOrdered By: PROVIDER TEMP on 12-20-2023 Albumin/Globulin [Mass ratio] 1.5 {ratio} [facility] Comment on above: Performed By: #### L IPID, [id number], TSH3 wRFLX, CMP, PSAS, CBC, FE and TIBC, B12 #### [facility] [address] Serum or plasma anion gap de terminationOrdered By: PROVIDER TEMP on 12-20-2023 Anion gap [Moles/Vol] 13.0 mmol/L Normal 6.0-15.0 [facility] Comment on above: Performed By: #### L IPID, [id number], TSH3 wRFLX, CMP, PSAS, CBC, FE and TIBC, B12 #### [facility] [address] Serum or plasma non-glucuron idated bilirubin measurement (mass/volume)Ordered By: PROVIDER TEMP on 12-20-2023 Bilirubin.indirect [Mass/Vol] 0.6 mg/dL [facility] Sodium [Moles/volume] in Ser um or PlasmaOrdered By: PROVIDER TEMP on 12-20-2023 Sodium [Moles/Vol] 134 mmol/L Low 136-145 [facility] Comment on above: Performed By: #### L IPID, [id number], TSH3 wRFLX, CMP, PSAS, CBC, FE and TIBC, B12 #### [facility] [address] [place] [address] Specific gravity Test strip (U) [Rel density]Ordered By: PROVIDER TEMP on 12-20-2023 Specific gravity (U) [Rel density] 1.025 1.001-1.03 0 [facility] Urea nitrogen [Mass/volume] in Serum or PlasmaOrdered By: PROVIDER TEMP on 12-20-2023 Urea nitrogen [Mass/Vol] 18 mg/dL Normal 7-25 [facility] Comment on above: Performed By: #### L IPID, [id number], TSH3 wRFLX, CMP, PSAS, CBC, FE and TIBC, B12 #### [facility] [address] Urine appearanceOrdered By: PROVIDER TEMP on 12-20-2023 Appearance (U) Clear Normal Clear [facility] Comment on above: Order Comment: Reaso n for Exam Type 2 diabetes mellitus with other specified complication Reason for Exam Neuropathy Performed By: #### L IPID, [id number], TSH3 wRFLX, CMP, PSAS, CBC, FE and TIBC, B12 #### [address] Urobilinogen Test strip (U) [Mass/Vol]Ordered By: PROVIDER TEMP on 12-20-2023 Urobilinogen (U) [Mass/Vol] Normal mg/dL Normal [facility] pH of Urine by Test stripOrd ered By: PROVIDER TEMP on 12-20-2023 pH (U) 5.5 [pH] Normal 5.0-9.0 [facility] Comment on above: Order Comment: Reaso n for Exam Type 2 diabetes mellitus with other specified complication Reason for Exam Neuropathy Performed By: #### L IPID, [id number], TSH3 wRFLX, CMP, PSAS, CBC, FE and TIBC, B12 #### [facility] [address] [place] [address] Alanine aminotransferase [En zymatic activity/volume] in Serum or PlasmaOrdered By: Cyrus Donovan on 12-19-2023 ALT [Catalytic activity/Vol] 27 U/L Normal 7-52 [facility] Comment on above: Performed By: #### L IPID, [id number], TSH3 wRFLX, CMP, PSAS, CBC, FE and TIBC, B12 #### [address] Albumin [Mass/volume] in Ser um or Plasma by Bromocresol green (BCG) dye binding methoOrdered By: Cyrus Donovan on 12-19-2023 Albumin BCG dye [Mass/Vol] 4.3 g/dL 3.5-5.7 [facility] Alkaline phosphatase [Enzyma tic activity/volume] in Serum or PlasmaOrdered By: Cyrus Donovan on 12-19-2023 ALP [Catalytic activity/Vol] 101 U/L Normal 34-104 [facility] Comment on above: Performed By: #### L IPID, [id number], TSH3 wRFLX, CMP, PSAS, CBC, FE and TIBC, B12 #### [address] Aspartate aminotransferase [ Enzymatic activity/volume] in Serum or PlasmaOrdered By: Cyrus Donovna on 12-19-2023 AST [Catalytic activity/Vol] 20 U/L Normal 13-39 [facility] Comment on above: Performed By: #### L IPID, [id number], TSH3 wRFLX, CMP, PSAS, CBC, FE and TIBC, B12 #### [address] Automated basophil %Ordered By: Cyrus Donovan on 12-19-2023 Basophils/100 WBC (Bld) 0.8 % Normal . [facility] Comment on above: Performed By: #### L IPID, [id number], TSH3 wRFLX, CMP, PSAS, CBC, FE and TIBC, B12 #### [address] Automated basophil countOrde red By: Cyrus Donovan on 12-19-2023 Basophils (Bld) [#/Vol] 0.1 10*3/uL Normal 0.0-0.2 [facility] Comment on above: Result Comment: PERF ORMED BY: [place] [address] PATHOLOGIST [employer] ALYSSA MOSQUEDA M.D. Performed By: #### L IPID, [id number], TSH3 wRFLX, CMP, PSAS, CBC, FE and TIBC, B12 #### [address] Automated blood monocyte cou ntOrdered By: Cyrus Donovan on 12-19-2023 Monocytes (Bld) [#/Vol] 0.5 10*3/uL Normal 0.0-0.8 [facility] Comment on above: Performed By: #### L IPID, [id number], TSH3 wRFLX, CMP, PSAS, CBC, FE and TIBC, B12 #### [address] Automated eosinophil %Ordere d By: Cyrus Donovan on 12-19-2023 Eosinophils/100 WBC (Bld) 3.1 % Normal . [facility] Comment on above: Performed By: #### L IPID, [id number], TSH3 wRFLX, CMP, PSAS, CBC, FE and TIBC, B12 #### [facility] [address] Automated eosinophil countOr dered By: Cyrus Zion on 12-19-2023 Eosinophils (Bld) [#/Vol] 0.3 10*3/uL Normal 0.0-0.45 [facility] Comment on above: Performed By: #### L IPID, [id number], TSH3 wRFLX, CMP, PSAS, CBC, FE and TIBC, B12 #### [address] Automated monocyte %Ordered By: Cyrus Donovan on 12-19-2023 Monocytes/100 WBC (Bld) 5.9 % Normal . [facility] Comment on above: Performed By: #### L IPID, [id number], TSH3 wRFLX, CMP, PSAS, CBC, FE and TIBC, B12 #### [address] Automated neutrophil %Ordere d By: Cyrus Donovan on 12-19-2023 Neutrophils/100 WBC (Bld) 56.6 % Normal . [facility] Comment on above: Performed By: #### L IPID, [id number], TSH3 wRFLX, CMP, PSAS, CBC, FE and TIBC, B12 #### [address] Basic Metabolic Panelon Creatinine Clr Calc Pharmacy 64.80 Normal [facility] Comment on above: Performed By: #### L IPID, [id number], TSH3 wRFLX, CMP, PSAS, CBC, FE and TIBC, B12 #### [address] GFR/1.73 sq M.predicted MDRD (S/P/Bld) [Vol rate/Area] mL/min/{1.73_m2} Normal [facility] Comment on above: Performed By: #### L IPID, [id number], TSH3 wRFLX, CMP, PSAS, CBC, FE and TIBC, B12 #### [facility] [address] Bilirubin.direct [Mass/volum e] in Serum or PlasmaOrdered By: Cyrus Donovan on 12-19-2023 Bilirubin.direct [Mass/Vol] 0.10 mg/dL 0.03-0.18 [facility] Bilirubin.total [Mass/volume ] in Serum or PlasmaOrdered By: Cyrus Donovan on 12-19-2023 Bilirubin [Mass/Vol] 0.5 mg/dL Normal 0.3-1.[address] [facility] Comment on above: Performed By: #### L IPID, [id number], TSH3 wRFLX, CMP, PSAS, CBC, FE and TIBC, B12 #### [facility] [address] abdomen pelvis wo conon 0 12-19-2023 CT abdomen pelvis wo [facility] [place] [address] CT Scan Report Signed Patient: Gene Barahona MR#: [id number] : 1970 Acct:[id number] Age/Sex: 53 / M ADM Date: 12/18/23 Loc: ER Room: Type: [facility] ER Attending Dr: Copies to: Cyrus Donovan DO Ordering Provider: Cyrus Donovan DO Date of Service: 12/19/23 CT/CT abdomen pelvis wo con: b/l flank pain, s/p R nephrectomy for cancer CT Abdomen and Pelvis withoutcontrast TECHNIQUE: Axial imaging with 2-D reconstruction. . The CT exam was performed using one or more the following dose reduction techniques: Automated exposure control, adjustment of the MA and/or Kv according to patient size, or use of the iterative reconstruction technique. COMPARISON: 07/18/2023 History: Bilateral flank pain for couple weeks. History of renal cancer. LIMITATIONS: None LOWER THORAX Unremarkable LIVER: Hepatic steatosis GALLBLADDER: Cholecystectomy BILE DUCTS: No dilatation SPLEEN: Unremarkable PANCREAS: Stranding adjacent the pancreatic head concerning for acute pancreatitis. ADRENAL GLANDS: Unremarkable KIDNEYS:Absent right kidney. Unremarkable left kidney. No obstructive uropathy. AORTA: No abdominal aortic aneurysm identified. RETROPERITONEUM: No significant retroperitoneal abnormalities identified. MESENTERY:Unremarkable SMALL BOWEL: The small bowel loops are nondistended. APPENDIX: Appendectomy changes identified. COLON: Moderate constipation. URINARY BLADDER: Urinary bladder is unremarkable. REPRODUCTIVE SYSTEM: Reproductive structures are unremarkable. PNEUMOPERITONEUM: None PERITONEAL FLUID:None BONY STRUCTURES: Unremarkable ABDOMINAL WALL: Unremarkable CT/CT abdomen pelvis wo con IMPRESSION: No IV contrast limiting assessment. Findings concerning for uncomplicated acute pancreatitis. Hepatic steatosis. Moderate constipation. Postsurgical changes. Impression dictated by: Kevin Flores M.D.12/19/2023 9:57 AM Dictation Location: [place] [address] Transcribed By: [facility] 12/19/23 0957 Dictated By: Kevin Flores DO 12/19/23 0951 Signed By: 12/19/23 0957 Normal [facility] Calcium [Mass/volume] in Ser um or PlasmaOrdered By: Cyrus Donovan on 12-19-2023 Calcium [Mass/Vol] 9.5 mg/dL Normal 8.6-10.3 [facility] Comment on above: Performed By: #### L IPID, [id number], TSH3 wRFLX, CMP, PSAS, CBC, FE and TIBC, B12 #### [facility] [address] [place] [address] [place] Carbon dioxide, total [Moles /volume] in Serum or PlasmaOrdered By: Cyrus Donovan on 12-19-2023 CO2 [Moles/Vol] 26.9 mmol/L Normal 21.0-31.0 [facility] Comment on above: Performed By: #### L IPID, [id number], TSH3 wRFLX, CMP, PSAS, CBC, FE and TIBC, B12 #### [facility] [address] [place] [id number] [place] Chloride [Moles/volume] in S manohar or PlasmaOrdered By: Cyrus Donovan on 12-19-2023 Chloride [Moles/Vol] 99 mmol/L Normal 98-[address] [facility] Comment on above: Performed By: #### L IPID, [id number], TSH3 wRFLX, CMP, PSAS, CBC, FE and TIBC, B12 #### [address] Complete Blood Count Auto Di ffon 12-19-2023 Mean Corpuscular HGB Conc 35.0 g/dL Normal 32.5-35.6 [facility] Comment on above: Performed By: #### L IPID, [id number], TSH3 wRFLX, CMP, PSAS, CBC, FE and TIBC, B12 #### [address] Monocytes/100 WBC (Bld) 15.69 % Normal 0.00-20.00 [facility] Comment on above: Performed By: #### L IPID, [id number], TSH3 wRFLX, CMP, PSAS, CBC, FE and TIBC, B12 #### [address] NRBC% 0.1 /100{WBC} Normal 0-0.5 [facility] Comment on above: Performed By: #### L IPID, [id number], TSH3 wRFLX, CMP, PSAS, CBC, FE and TIBC, B12 #### [address] Creatinine [Mass/volume] in Serum or PlasmaOrdered By: Cyrus Donovan on 12-19-2023 Creatinine [Mass/Vol] 1.33 mg/dL High 0.70-1.30 [facility] Comment on above: Performed By: #### L IPID, [id number], TSH3 wRFLX, CMP, PSAS, CBC, FE and TIBC, B12 #### [address] Erythrocyte distribution wid th [Ratio] by Automated countOrdered By: Cyrus Donovan on 12-19-2023 Erythrocyte distribution width (RBC) [Ratio] 13.4 % Normal 12.0-14.8 [facility] Comment on above: Performed By: #### L IPID, [id number], TSH3 wRFLX, CMP, PSAS, CBC, FE and TIBC, B12 #### [facility] [address] Erythrocytes [#/volume] in B lood by Automated countOrdered By: Cyrus Donovan on 12-19-2023 RBC (Bld) [#/Vol] 5.04 10*6/uL Normal 3.90-5.60 [facility] Comment on above: Performed By: #### L IPID, [id number], TSH3 wRFLX, CMP, PSAS, CBC, FE and TIBC, B12 #### [address] Glucose [Mass/volume] in Ser um or PlasmaOrdered By: Cyrus Donovan on 12-19-2023 Glucose [Mass/Vol] 499 mg/dL High 70-100 [facility] Comment on above: ADA recommended refe rence rangeRandom Glucose Reference Range is dependent on time and content of last meal. Glucose of more than 200 mg/dL in a nonstressed, ambulatory subject supports the diagnosis of Diabetes Mellitus. Result Comment: [place] om Glucose Reference Range is dependent on time and content of last meal. Glucose of more than 200 mg/dL in a nonstressed, ambulatory subject supports the diagnosis of Diabetes Mellitus. ADA recommended reference range Performed By: #### L IPID, [id number], TSH3 wRFLX, CMP, PSAS, CBC, FE and TIBC, B12 #### [facility] [address] Hematocrit [Volume Fraction] of Blood by Automated countOrdered By: Cyrus Donovan on 12-19-2023 Hematocrit (Bld) [Volume fraction] 43.6 % Normal 38.8-50.0 [facility] Comment on above: Performed By: #### L IPID, [id number], TSH3 wRFLX, CMP, PSAS, CBC, FE and TIBC, B12 #### [facility] [address] Hemoglobin [Mass/volume] in BloodOrdered By: Cyrus Donovan on 12-19-2023 Hemoglobin (Bld) [Mass/Vol] 15.3 g/dL Normal 13.0-17.0 [facility] Comment on above: Performed By: #### L IPID, [id number], TSH3 wRFLX, CMP, PSAS, CBC, FE and TIBC, B12 #### [facility] [address] Hepatic Panelon 12-19-2023 Albumin [Mass/Vol] 4.3 g/dL Normal 3.5-5.7 [facility] Comment on above: Performed By: #### L IPID, [id number], TSH3 wRFLX, CMP, PSAS, CBC, FE and TIBC, B12 #### [address] Bilirubin,Indirect 0.4 mg/dL Normal [facility] Comment on above: Performed By: #### L IPID, [id number], TSH3 wRFLX, CMP, PSAS, CBC, FE and TIBC, B12 #### [address] Bilirubin.indirect [Mass/Vol] 0.10 mg/dL Normal 0.03-0.18 [facility] Comment on above: Performed By: #### L IPID, [id number], TSH3 wRFLX, CMP, PSAS, CBC, FE and TIBC, B12 #### [address] Leukocytes [#/volume] correc janelle for nucleated erythrocytes in Blood by Automated counOrdered By: Cyrus Donovan on 12-19-2023 WBC corrected for nucl RBC Auto (Bld) [#/Vol] 8.4 10*3/uL 4.1-10.5 [facility] Leukocytes [#/volume] in Blo od by Automated countOrdered By: Cyrus Donovna on 12-19-2023 WBC (Bld) [#/Vol] 8.4 10*3/uL Normal 4.1-10.5 [facility] Comment on above: Performed By: #### L IPID, [id number], TSH3 wRFLX, CMP, PSAS, CBC, FE and TIBC, B12 #### [address] Lipase [Enzymatic activity/v olume] in Serum or PlasmaOrdered By: Cyurs Donovan on 12-19-2023 Lipase [Catalytic activity/Vol] 98.0 U/L High 11.0-82.0 [facility] Comment on above: Result Comment: PERF ORMED BY: [place] [address] PATHOLOGIST [employer] ALYSSA MOSQUEDA M.D. Performed By: #### L IPID, [id number], TSH3 wRFLX, CMP, PSAS, CBC, FE and TIBC, B12 #### [address] Lymphocytes [#/volume] in Bl ood by Automated countOrdered By: Cyrus Donovan on 12-19-2023 Lymphocytes (Bld) [#/Vol] 2.8 10*3/uL Normal 1.00-4.8 [facility] Comment on above: Performed By: #### L IPID, [id number], TSH3 wRFLX, CMP, PSAS, CBC, FE and TIBC, B12 #### [facility] [address] [place] [address] [place] Lymphocytes/100 leukocytes i n Blood by Automated countOrdered By: Cyrus Donovan on 12-19-2023 Lymphocytes/100 WBC (Bld) 33.6 % Normal . [facility] Comment on above: Performed By: #### L IPID, [id number], TSH3 wRFLX, CMP, PSAS, CBC, FE and TIBC, B12 #### [place] [address] [place] MCH [Entitic mass] by Automa janelle countOrdered By: Cyrus Donovan on 12-19-2023 MCH (RBC) [Entitic mass] 30.3 pg Normal 27.5-35.2 [facility] Comment on above: Performed By: #### L IPID, [id number], TSH3 wRFLX, CMP, PSAS, CBC, FE and TIBC, B12 #### [facility] [address] MCHC Auto (RBC) [Mass/Vol]Or dered By: Cyrus Donovan on 12-19-2023 MCHC (RBC) [Mass/Vol] 35.0 g/dL 32.5-35.6 [facility] MCV [Entitic volume] by Auto mated countOrdered By: Cyrus Donovan on 12-19-2023 MCV (RBC) [Entitic vol] 86.5 fL Normal 83.5-101 [facility] Comment on above: Performed By: #### L IPID, [id number], TSH3 wRFLX, CMP, PSAS, CBC, FE and TIBC, B12 #### [facility] [address] Monocyte distribution width [Entitic volume] in Blood by AutomatedOrdered By: Cyrus Donovan on 12-19-2023 Monocyte distribution width Auto (Bld) [Entitic vol] 15.69 % 0.00-20.00 [facility] Neutrophils [#/volume] in Bl ood by Automated countOrdered By: Cyrus Donovan on 12-19-2023 Neutrophils (Bld) [#/Vol] 4.8 10*3/uL Normal 1.8-7.7 [facility] Comment on above: Performed By: #### L IPID, [id number], TSH3 wRFLX, CMP, PSAS, CBC, FE and TIBC, B12 #### [facility] [address] No Panel InformationOrdered By: Cyrus Donovan on 12-19-2023 Estimated GFR (CKD-EPI) > 60.0 mL/Min [facility] Creatinine Clearance (Chem 64.80 [facility] Nucleated erythrocytes [Pres ence] in Blood by Automated countOrdered By: Cyrus Donovan on 12-19-2023 Nucleated RBC Auto Ql (Bld) 0.1 /100{WBC} 0-0.5 [facility] Platelet mean volume [Entiti c volume] in Blood by Automated countOrdered By: Cyrus Donovan on 12-19-2023 Platelet mean volume (Bld) [Entitic vol] 8.5 fL Normal 6.6-10.1 [facility] Comment on above: Performed By: #### L IPID, [id number], TSH3 wRFLX, CMP, PSAS, CBC, FE and TIBC, B12 #### [address] Platelets [#/volume] in Bloo d by Automated countOrdered By: Cyrus Donovan on 12-19-2023 Platelets (Bld) [#/Vol] 165 10*3/uL Normal 150-450 [facility] Comment on above: Performed By: #### L IPID, [id number], TSH3 wRFLX, CMP, PSAS, CBC, FE and TIBC, B12 #### [address] Potassium [Moles/volume] in Serum or PlasmaOrdered By: Cyrus Donovan on 12-19-2023 Potassium [Moles/Vol] 4.2 mmol/L Normal 3.5-5.1 [facility] Comment on above: Performed By: #### L IPID, [id number], TSH3 wRFLX, CMP, PSAS, CBC, FE and TIBC, B12 #### [address] Protein [Mass/volume] in Ser um or PlasmaOrdered By: Cyrus Donovan on 12-19-2023 Protein [Mass/Vol] 7.1 g/dL Normal 6.4-8.9 [facility] Comment on above: Performed By: #### L IPID, [id number], TSH3 wRFLX, CMP, PSAS, CBC, FE and TIBC, B12 #### [address] Serum globulin measurement b y calculation (mass/volume)Ordered By: Cyrus Donovan on 12-19-2023 Globulin (S) [Mass/Vol] 2.8 g/dL [facility] Comment on above: Performed By: #### L IPID, [id number], TSH3 wRFLX, CMP, PSAS, CBC, FE and TIBC, B12 #### [address] Serum or plasma albumin/glob ulin mass ratioOrdered By: Cyrus Donovan on 12-19-2023 Albumin/Globulin [Mass ratio] 1.5 {ratio} [facility] Comment on above: Performed By: #### L IPID, [id number], TSH3 wRFLX, CMP, PSAS, CBC, FE and TIBC, B12 #### [address] Serum or plasma anion gap de terminationOrdered By: Cyrus Donovan on 12-19-2023 Anion gap [Moles/Vol] 11.3 mmol/L Normal 6.0-15.0 [facility] Comment on above: Performed By: #### L IPID, [id number], TSH3 wRFLX, CMP, PSAS, CBC, FE and TIBC, B12 #### [facility] [address] [place] [address] Serum or plasma non-glucuron idated bilirubin measurement (mass/volume)Ordered By: Cyrus Donovan on 12-19-2023 Bilirubin.indirect [Mass/Vol] 0.4 mg/dL [facility] Sodium [Moles/volume] in Ser um or PlasmaOrdered By: Cyrus Donovan on 12-19-2023 Sodium [Moles/Vol] 133 mmol/L Low 136-145 [facility] Comment on above: Performed By: #### L IPID, [id number], TSH3 wRFLX, CMP, PSAS, CBC, FE and TIBC, B12 #### [address] Urea nitrogen [Mass/volume] in Serum or PlasmaOrdered By: Cyrus Donovan on 12-19-2023 Urea nitrogen [Mass/Vol] 20 mg/dL Normal 7-25 [facility] Comment on above: Performed By: #### L IPID, [id number], TSH3 wRFLX, CMP, PSAS, CBC, FE and TIBC, B12 #### [facility] [address] Alanine aminotransferase [En zymatic activity/volume] in Serum or PlasmaOrdered By: Chaim Reeder on 10-17-2023 ALT [Catalytic activity/Vol] 37 U/L Normal 7-52 [facility] Comment on above: Order Comment: Reaso n for Exam Encounter for prostate cancer screening Performed By: #### L IPID, [id number], TSH3 wRFLX, CMP, PSAS, CBC, FE and TIBC, B12 #### [facility] [address] Albumin [Mass/volume] in Ser um or Plasma by Bromocresol green (BCG) dye binding methoOrdered By: Chaim Reeder on 10-17-2023 Albumin BCG dye [Mass/Vol] 4.3 g/dL 3.5-5.7 [facility] [facility] Alkaline phosphatase [Enzyma tic activity/volume] in Serum or PlasmaOrdered By: Chaim Reeder on 10-17-2023 ALP [Catalytic activity/Vol] 86 U/L Normal 34-104 [facility] Comment on above: Order Comment: Reaso n for Exam Encounter for prostate cancer screening Performed By: #### L IPID, [id number], TSH3 wRFLX, CMP, PSAS, CBC, FE and TIBC, B12 #### [facility] [address] Aspartate aminotransferase [ Enzymatic activity/volume] in Serum or PlasmaOrdered By: Chaim Reeder on 10-17-2023 AST [Catalytic activity/Vol] 22 U/L Normal 13-39 [facility] Comment on above: Order Comment: Reaso n for Exam Encounter for prostate cancer screening Performed By: #### L IPID, [id number], TSH3 wRFLX, CMP, PSAS, CBC, FE and TIBC, B12 #### [facility] [address] [place] [address] [place] Automated basophil %Ordered By: Chaim Reeder on 10-17-2023 Basophils/100 WBC (Bld) 1.0 % Normal . [facility] Comment on above: Order Comment: Reaso n for Exam Encounter for prostate cancer screening Performed By: #### L IPID, [id number], TSH3 wRFLX, CMP, PSAS, CBC, FE and TIBC, B12 #### [facility] [address] Automated basophil countOrde red By: Chaim Reeder on 10-17-2023 Basophils (Bld) [#/Vol] 0.1 10*3/uL Normal 0.0-0.2 [facility] Comment on above: Order Comment: Reaso n for Exam Encounter for prostate cancer screening Result Comment: PERF ORMED BY: [place] [address] PATHOLOGIST [employer] ALYSSA MOSQUEDA M.D. Performed By: #### L IPID, [id number], TSH3 wRFLX, CMP, PSAS, CBC, FE and TIBC, B12 #### [address] Automated blood monocyte cou ntOrdered By: Chaim Reeder on 10-17-2023 Monocytes (Bld) [#/Vol] 0.5 10*3/uL Normal 0.0-0.8 [facility] Comment on above: Order Comment: Reaso n for Exam Encounter for prostate cancer screening Performed By: #### L IPID, [id number], TSH3 wRFLX, CMP, PSAS, CBC, FE and TIBC, B12 #### [facility] [address] Automated eosinophil %Ordere d By: Chaim Reeder on 10-17-2023 Eosinophils/100 WBC (Bld) 2.7 % Normal . [facility] Comment on above: Order Comment: Reaso n for Exam Encounter for prostate cancer screening Performed By: #### L IPID, [id number], TSH3 wRFLX, CMP, PSAS, CBC, FE and TIBC, B12 #### [facility] [address] Automated eosinophil countOr dered By: Chaim Reeder on 10-17-2023 Eosinophils (Bld) [#/Vol] 0.3 10*3/uL Normal 0.0-0.45 [facility] Comment on above: Order Comment: Reaso n for Exam Encounter for prostate cancer screening Performed By: #### L IPID, [id number], TSH3 wRFLX, CMP, PSAS, CBC, FE and TIBC, B12 #### [facility] [address] Automated monocyte %Ordered By: Chaim Reeder on 10-17-2023 Monocytes/100 WBC (Bld) 4.6 % Normal . [facility] Comment on above: Order Comment: Reaso n for Exam Encounter for prostate cancer screening Performed By: #### L IPID, [id number], TSH3 wRFLX, CMP, PSAS, CBC, FE and TIBC, B12 #### [facility] [address] [place] [address] Automated neutrophil %Ordere d By: Chaim Reeder on 10-17-2023 Neutrophils/100 WBC (Bld) 62.4 % Normal . [facility] Comment on above: Order Comment: Reaso n for Exam Encounter for prostate cancer screening Performed By: #### L IPID, [id number], TSH3 wRFLX, CMP, PSAS, CBC, FE and TIBC, B12 #### [facility] [address] [place] [address] Bilirubin.total [Mass/volume ] in Serum or PlasmaOrdered By: Chaim Reeder on 10-17-2023 Bilirubin [Mass/Vol] 0.7 mg/dL Normal 0.3-1.[address] [facility] Comment on above: Order Comment: Reaso n for Exam Encounter for prostate cancer screening Performed By: #### L IPID, [id number], TSH3 wRFLX, CMP, PSAS, CBC, FE and TIBC, B12 #### [facility] [address] [place] [address] Calcium [Mass/volume] in Ser um or PlasmaOrdered By: Chaim Reeedr on 10-17-2023 Calcium [Mass/Vol] 9.5 mg/dL Normal 8.6-10.3 [facility] Comment on above: Order Comment: Reaso n for Exam Encounter for prostate cancer screening Performed By: #### L IPID, [id number], TSH3 wRFLX, CMP, PSAS, CBC, FE and TIBC, B12 #### [facility] [address] Carbon dioxide, total [Moles /volume] in Serum or PlasmaOrdered By: Chaim Reeder on 10-17-2023 CO2 [Moles/Vol] 25.2 mmol/L Normal 21.0-31.0 [facility] Comment on above: Order Comment: Reaso n for Exam Encounter for prostate cancer screening Performed By: #### L IPID, [id number], TSH3 wRFLX, CMP, PSAS, CBC, FE and TIBC, B12 #### [facility] [address] [place] [address] [place] Chloride [Moles/volume] in S manohar or PlasmaOrdered By: Chaim Reeder on 10-17-2023 Chloride [Moles/Vol] 102 mmol/L Normal 98-[address] [facility] Comment on above: Order Comment: Reaso n for Exam Encounter for prostate cancer screening Performed By: #### L IPID, [id number], TSH3 wRFLX, CMP, PSAS, CBC, FE and TIBC, B12 #### [facility] [address] [place] [id number] [facility] Cholesterol [Mass/volume] in Serum or PlasmaOrdered By: Chaim Reeder on 10-17-2023 Cholesterol [Mass/Vol] 140 mg/dL Normal 140-200 [facility] Comment on above: Chol less than 200 m g/dl low riskChol 201-239 mg/dl borderline riskChol 240 mg/dl and greater high risk Order Comment: Reaso n for Exam Encounter for prostate cancer screening Result Comment: Chol less than 200 mg/dl low risk Chol 201-239 mg/dl borderline risk Chol 240 mg/dl and greater high risk Performed By: #### L IPID, [id number], TSH3 wRFLX, CMP, PSAS, CBC, FE and TIBC, B12 #### [facility] [address] Cholesterol in LDL Calc [Mas s/Vol]Ordered By: Chaim Reeder on 10-17-2023 Cholesterol in LDL [Mass/Vol] 41 mg/dL 0-100 [facility] Comment on above: LDL ATP III CLASSIFI CATIONLDL less than 100 mg/dL OptimalLDL 100-129 mg/dL Near or above optimalLDL 130-159 mg/dL Borderline highLDL 160-189 mg/dL HighLDL greater than 189 mg/dL Very high Cholesterol in VLDL Calc [Ma ss/Vol]Ordered By: Chaim Reeder on 10-17-2023 Cholesterol in VLDL [Mass/Vol] 68 mg/dL [facility] Complete Blood Count Auto Di ffon 10-17-2023 Mean Corpuscular HGB Conc 34.4 g/dL Normal 32.5-35.6 [facility] Comment on above: Order Comment: Reaso n for Exam Encounter for prostate cancer screening Performed By: #### L IPID, [id number], TSH3 wRFLX, CMP, PSAS, CBC, FE and TIBC, B12 #### [address] NRBC% 0.1 /100{WBC} Normal 0-0.5 [facility] Comment on above: Order Comment: Reaso n for Exam Encounter for prostate cancer screening Performed By: #### L IPID, [id number], TSH3 wRFLX, CMP, PSAS, CBC, FE and TIBC, B12 #### [facility] [address] Comprehensive Metabolic Pane yumi 10-17-2023 Albumin [Mass/Vol] 4.3 g/dL Normal 3.5-5.7 [facility] Comment on above: Order Comment: Reaso n for Exam Encounter for prostate cancer screening Performed By: #### L IPID, [id number], TSH3 wRFLX, CMP, PSAS, CBC, FE and TIBC, B12 #### [place] [address] [place] GFR/1.73 sq M.predicted MDRD (S/P/Bld) [Vol rate/Area] mL/min/{1.73_m2} Normal [facility] Comment on above: Order Comment: Reaso n for Exam Encounter for prostate cancer screening Performed By: #### L IPID, [id number], TSH3 wRFLX, CMP, PSAS, CBC, FE and TIBC, B12 #### [facility] [address] Creatinine [Mass/volume] in Serum or PlasmaOrdered By: Chaim Reeder on 10-17-2023 Creatinine [Mass/Vol] 1.23 mg/dL Normal 0.70-1.30 [facility] Comment on above: Order Comment: Reaso n for Exam Encounter for prostate cancer screening Performed By: #### L IPID, [id number], TSH3 wRFLX, CMP, PSAS, CBC, FE and TIBC, B12 #### [facility] [address] Erythrocyte distribution wid th [Ratio] by Automated countOrdered By: Chaim Reeder on 10-17-2023 Erythrocyte distribution width (RBC) [Ratio] 13.8 % Normal 12.0-14.8 [facility] Comment on above: Order Comment: Reaso n for Exam Encounter for prostate cancer screening Performed By: #### L IPID, [id number], TSH3 wRFLX, CMP, PSAS, CBC, FE and TIBC, B12 #### [facility] [address] Erythrocytes [#/volume] in B lood by Automated countOrdered By: Chaim Reeder on 10-17-2023 RBC (Bld) [#/Vol] 5.14 10*6/uL Normal 3.90-5.60 [facility] Comment on above: Order Comment: Reaso n for Exam Encounter for prostate cancer screening Performed By: #### L IPID, [id number], TSH3 wRFLX, CMP, PSAS, CBC, FE and TIBC, B12 #### [facility] [address] Glucose [Mass/volume] in Ser um or PlasmaOrdered By: Chaim Reeder on 10-17-2023 Glucose [Mass/Vol] 253 mg/dL High 70-100 [facility] Comment on above: ADA recommended refe rence rangeRandom Glucose Reference Range is dependent on time and content of last meal. Glucose of more than 200 mg/dL in a nonstressed, ambulatory subject supports the diagnosis of Diabetes Mellitus. Order Comment: Reaso n for Exam Encounter for prostate cancer screening Result Comment: [place] Glucose Reference Range is dependent on time and content of last meal. Glucose of more than 200 mg/dL in a nonstressed, ambulatory subject supports the diagnosis of Diabetes Mellitus. ADA recommended reference range Performed By: #### L IPID, [id number], TSH3 wRFLX, CMP, PSAS, CBC, FE and TIBC, B12 #### [facility] [address] [place] [address] [place] Hematocrit [Volume Fraction] of Blood by Automated countOrdered By: Chaim Reeder on 10-17-2023 Hematocrit (Bld) [Volume fraction] 44.9 % Normal 38.8-50.0 [facility] Comment on above: Order Comment: Reaso n for Exam Encounter for prostate cancer screening Performed By: #### L IPID, [id number], TSH3 wRFLX, CMP, PSAS, CBC, FE and TIBC, B12 #### [facility] [address] [place] [address] [place] Hemoglobin [Mass/volume] in BloodOrdered By: Chaim Reeder on 10-17-2023 Hemoglobin (Bld) [Mass/Vol] 15.5 g/dL Normal 13.0-17.0 [facility] Comment on above: Order Comment: Reaso n for Exam Encounter for prostate cancer screening Performed By: #### L IPID, [id number], TSH3 wRFLX, CMP, PSAS, CBC, FE and TIBC, B12 #### [facility] [address] [place] [id number] [place] Leukocytes [#/volume] correc janelle for nucleated erythrocytes in Blood by Automated counOrdered By: Chaim Reeder on 10-17-2023 WBC corrected for nucl RBC Auto (Bld) [#/Vol] 9.9 10*3/uL 4.1-10.5 [facility] Leukocytes [#/volume] in Blo od by Automated countOrdered By: Chaim Reeder on 10-17-2023 WBC (Bld) [#/Vol] 9.9 10*3/uL Normal 4.1-10.5 [facility] Comment on above: Order Comment: Reaso n for Exam Encounter for prostate cancer screening Performed By: #### L IPID, [id number], TSH3 wRFLX, CMP, PSAS, CBC, FE and TIBC, B12 #### [facility] [address] Lipid Panelon 10-17-2023 LDL Cholesterol,Calculated 41 mg/dL Normal 0-100 [facility] Comment on above: Order Comment: Reaso n for Exam Encounter for prostate cancer screening Result Comment: LDL ATP III CLASSIFICATION LDL less than 100 mg/dL Optimal LDL 100-129 mg/dL Near or above optimal LDL 130-159 mg/dL Borderline high LDL 160-189 mg/dL High LDL greater than 189 mg/dL Very high Performed By: #### L IPID, [id number], TSH3 wRFLX, CMP, PSAS, CBC, FE and TIBC, B12 #### [facility] [address] [place] [id number] [facility] Triglyceride w/Reflex 344 mg/dL High 0-149 [facility] Comment on above: Order Comment: Reaso n for Exam Encounter for prostate cancer screening Result Comment: TRIG ATP III CLASSIFICATION TRIG less than 150 mg/dL Normal TRIG 150-199 mg/dL Borderline high TRIG 200-500 mg/dL High TRIG greater than 500 mg/dL Very high Standard traceable to the Center for Disease Conrtrol and Prevention (CDC) test method. Performed By: #### L IPID, [id number], TSH3 wRFLX, CMP, PSAS, CBC, FE and TIBC, B12 #### [facility] [address] [place] [id number] [facility] VLDL CHOLESTEROL 68 mg/dL Normal [facility] Comment on above: Order Comment: Reaso n for Exam Encounter for prostate cancer screening Performed By: #### L IPID, [id number], TSH3 wRFLX, CMP, PSAS, CBC, FE and TIBC, B12 #### [facility] [address] Lymphocytes [#/volume] in Bl ood by Automated countOrdered By: Chaim Reeder on 10-17-2023 Lymphocytes (Bld) [#/Vol] 2.9 10*3/uL Normal 1.00-4.8 [facility] Comment on above: Order Comment: Reaso n for Exam Encounter for prostate cancer screening Performed By: #### L IPID, [id number], TSH3 wRFLX, CMP, PSAS, CBC, FE and TIBC, B12 #### [facility] [address] [place] [address] Lymphocytes/100 leukocytes i n Blood by Automated countOrdered By: Chaim Reeder on 10-17-2023 Lymphocytes/100 WBC (Bld) 29.3 % Normal . [facility] Comment on above: Order Comment: Reaso n for Exam Encounter for prostate cancer screening Performed By: #### L IPID, [id number], TSH3 wRFLX, CMP, PSAS, CBC, FE and TIBC, B12 #### [facility] [address] [place] [address] MCH [Entitic mass] by Automa janelle countOrdered By: Chaim Reeder on 10-17-2023 MCH (RBC) [Entitic mass] 30.1 pg Normal 27.5-35.2 [facility] Comment on above: Order Comment: Reaso n for Exam Encounter for prostate cancer screening Performed By: #### L IPID, [id number], TSH3 wRFLX, CMP, PSAS, CBC, FE and TIBC, B12 #### [facility] [address] [place] [address] MCHC Auto (RBC) [Mass/Vol]Or dered By: Chaim Reeder on 10-17-2023 MCHC (RBC) [Mass/Vol] 34.4 g/dL 32.5-35.6 [facility] MCV [Entitic volume] by Auto mated countOrdered By: Chaim Reeder on 10-17-2023 MCV (RBC) [Entitic vol] 87.4 fL Normal 83.5-101 [facility] Comment on above: Order Comment: Reaso n for Exam Encounter for prostate cancer screening Performed By: #### L IPID, [id number], TSH3 wRFLX, CMP, PSAS, CBC, FE and TIBC, B12 #### [facility] [address] Microalbumin [Mass/volume] i n UrineOrdered By: Chaim Reeder on 10-17-2023 Albumin DL <= 20 mg/L (U) [Mass/Vol] mg/dL High 0.0-1.8 [facility] Comment on above: Order Comment: Reaso n for Exam Type 2 diabetes mellitus with other specified complication Reason for Exam Neuropathy Result Comment: PERF ORMED BY: [place] [address] PATHOLOGIST [employer] ALYSSA MOSQUEDA M.D. Performed By: #### L IPID, [id number], TSH3 wRFLX, CMP, PSAS, CBC, FE and TIBC, B12 #### [facility] [address] Neutrophils [#/volume] in Bl ood by Automated countOrdered By: Chaim Reeder on 10-17-2023 Neutrophils (Bld) [#/Vol] 6.2 10*3/uL Normal 1.8-7.7 [facility] Comment on above: Order Comment: Reaso n for Exam Encounter for prostate cancer screening Performed By: #### L IPID, [id number], TSH3 wRFLX, CMP, PSAS, CBC, FE and TIBC, B12 #### [facility] [address] No Panel InformationOrdered By: Chaim Reeder on 10-17-2023 Estimated GFR (CKD-EPI) > 60.0 mL/Min [facility] Creatinine Clearance (Chem N/A [facility] Nucleated erythrocytes [Pres ence] in Blood by Automated countOrdered By: Chaim Reeder on 10-17-2023 Nucleated RBC Auto Ql (Bld) 0.1 /100{WBC} 0-0.5 [facility] Platelet mean volume [Entiti c volume] in Blood by Automated countOrdered By: Chaim Reeder on 10-17-2023 Platelet mean volume (Bld) [Entitic vol] 9.9 fL Normal 6.6-10.1 [facility] Comment on above: Order Comment: Reaso n for Exam Encounter for prostate cancer screening Performed By: #### L IPID, [id number], TSH3 wRFLX, CMP, PSAS, CBC, FE and TIBC, B12 #### [facility] [address] [place] [address] [place] Platelets [#/volume] in Bloo d by Automated countOrdered By: Chaim Reeder on 10-17-2023 Platelets (Bld) [#/Vol] 173 10*3/uL Normal 150-450 [facility] Comment on above: Order Comment: Reaso n for Exam Encounter for prostate cancer screening Performed By: #### L IPID, [id number], TSH3 wRFLX, CMP, PSAS, CBC, FE and TIBC, B12 #### [facility] [address] [place] [address] [place] Potassium [Moles/volume] in Serum or PlasmaOrdered By: Chaim Reeder on 10-17-2023 Potassium [Moles/Vol] 4.2 mmol/L Normal 3.5-5.1 [facility] Comment on above: Order Comment: Reaso n for Exam Encounter for prostate cancer screening Performed By: #### L IPID, [id number], TSH3 wRFLX, CMP, PSAS, CBC, FE and TIBC, B12 #### [facility] [address] [place] [id number] [place] Protein [Mass/volume] in Ser um or PlasmaOrdered By: Chaim Reeder on 10-17-2023 Protein [Mass/Vol] 7.0 g/dL Normal 6.4-8.9 [facility] Comment on above: Order Comment: Reaso n for Exam Encounter for prostate cancer screening Performed By: #### L IPID, [id number], TSH3 wRFLX, CMP, PSAS, CBC, FE and TIBC, B12 #### [facility] [address] Serum globulin measurement b y calculation (mass/volume)Ordered By: Chaim Reeder on 10-17-2023 Globulin (S) [Mass/Vol] 2.7 g/dL [facility] Comment on above: Order Comment: Reaso n for Exam Encounter for prostate cancer screening Performed By: #### L IPID, [id number], TSH3 wRFLX, CMP, PSAS, CBC, FE and TIBC, B12 #### [facility] [address] Serum or plasma albumin/glob ulin mass ratioOrdered By: Chaim Reeder on 10-17-2023 Albumin/Globulin [Mass ratio] 1.6 {ratio} [facility] Comment on above: Order Comment: Reaso n for Exam Encounter for prostate cancer screening Performed By: #### L IPID, [id number], TSH3 wRFLX, CMP, PSAS, CBC, FE and TIBC, B12 #### [facility] [address] Serum or plasma anion gap de terminationOrdered By: Chaim Reeder on 10-17-2023 Anion gap [Moles/Vol] 13.0 mmol/L Normal 6.0-15.0 [facility] Comment on above: Order Comment: Reaso n for Exam Encounter for prostate cancer screening Performed By: #### L IPID, [id number], TSH3 wRFLX, CMP, PSAS, CBC, FE and TIBC, B12 #### [facility] [address] Serum or plasma high density lipoprotein (HDL) cholesterol measurementOrdered By: Chaim Reeder on 10-17-2023 Cholesterol in HDL [Mass/Vol] 30 mg/dL Normal 23-92 [facility] Comment on above: HDL CHOL ATP-III CLA SSIFICATION Cardiovascular RiskHDL > or equal to 60 mg/dL LOWHDL < 40 mg/dL HIGH Order Comment: Reaso n for Exam Encounter for prostate cancer screening Result Comment: HDL CHOL ATP-III CLASSIFICATION Cardiovascular Risk HDL > or equal to 60 mg/dL LOW HDL < 40 mg/dL HIGH Performed By: #### L IPID, [id number], TSH3 wRFLX, CMP, PSAS, CBC, FE and TIBC, B12 #### [facility] [address] Serum or plasma total choles terol/high density lipoprotein (HDL) cholesterol mass ratOrdered By: Chaim Reeder on 10-17-2023 Cholesterol.total/Chol esterol in HDL [Mass ratio] 4.7 {ratio} Normal <5.0 [facility] Comment on above: Order Comment: Reaso n for Exam Encounter for prostate cancer screening Performed By: #### L IPID, [id number], TSH3 wRFLX, CMP, PSAS, CBC, FE and TIBC, B12 #### [facility] [address] [place] [address] [place] Sodium [Moles/volume] in Ser um or PlasmaOrdered By: Chaim Reeder on 10-17-2023 Sodium [Moles/Vol] 136 mmol/L Normal 136-145 [facility] Comment on above: Order Comment: Reaso n for Exam Encounter for prostate cancer screening Performed By: #### L IPID, [id number], TSH3 wRFLX, CMP, PSAS, CBC, FE and TIBC, B12 #### [facility] [address] Thyroid Stim Hormone w/Rflxo n 10-17-2023 Thyroid Stim Hormone w/Rflx 2.25 u[iU]/mL Normal 0.45-5.33 [facility] Comment on above: Order Comment: Reaso n for Exam Encounter for prostate cancer screening Performed By: #### L IPID, [id number], TSH3 wRFLX, CMP, PSAS, CBC, FE and TIBC, B12 #### [facility] [address] Thyrotropin [Units/volume] i n Serum or PlasmaOrdered By: Chaim Reeder on 10-17-2023 TSH Qn 2.25 m[IU]/L 0.45-5.33 [facility] Triglyceride [Mass/volume] i n Serum or PlasmaOrdered By: Chaim Reeder on 10-17-2023 Triglyceride [Mass/Vol] 344 mg/dL High 0-149 [facility] Comment on above: TRIG ATP III CLASSIF ICATIONTRIG less than 150 mg/dL NormalTRIG 150-199 mg/dL Borderline highTRIG 200-500 mg/dL High TRIG greater than 500 mg/dL Very highStandard traceable to the Center for Disease Conrtrol and Prevention (CDC) test method. Urea nitrogen [Mass/volume] in Serum or PlasmaOrdered By: Chaim Reeder on 10-17-2023 Urea nitrogen [Mass/Vol] 16 mg/dL Normal 7-25 [facility] Comment on above: Order Comment: Reaso n for Exam Encounter for prostate cancer screening Performed By: #### L IPID, [id number], TSH3 wRFLX, CMP, PSAS, CBC, FE and TIBC, B12 #### [facility] [address] Vitamin D 25 Hydroxy Totalon 10-17-2023 Vitamin D 25 Hydroxy Total 27.2 ng/mL Low 30-100 [facility] Comment on above: Order Comment: Reaso n for Exam Encounter for prostate cancer screening Result Comment: VIK MIN D STATUS 25(OH)VITAMIN D RANGE (ng/mL) Deficient <20 Insufficient 20 to <30 Sufficient 30 to 100 Reference: Marilyn MF,April NC, Tracy PARKER, et al. Evaluation,treatment, and prevention of vitamin D deficiency; an Endocrine Society clinical practice guideline. JCEM. 2010; 96(7):1911-30. PERFORMED BY: [place] [address] PATHOLOGIST [employer] ALYSSA MOSQUEDA M.D. Performed By: #### L IPID, [id number], TSH3 wRFLX, CMP, PSAS, CBC, FE and TIBC, B12 #### [facility] [address] [place] [id number] [facility] Vitamin D+Metabolites [Mass/ volume] in Serum or PlasmaOrdered By: Chaim Reeder on 10-17-2023 Vitamin D+Metabolites [Mass/Vol] 27.2 ng/mL Low 30-100 [facility] Comment on above: VITAMIN D STATUS 25( [place])VITAMIN D RANGE (ng/mL) Deficient <20 Insufficient 20 to <30Sufficient 30 to 100Reference: Marilyn MF,April NC, Tracy PARKER, et al. Evaluation,treatment, and prevention of vitamin D deficiency; an Endocrine Society clinical practice guideline. JCEM. 2010; 96(7):1911-30. CT abdomen pelvis wo conon 0 07-18-2023 CT abdomen pelvis wo con [facility] [place] [address] [place] [address] CT Scan Report Signed Patient: Gene Barahona MR#: [id number] : [id number] Acct:[id number] Age/Sex: 52 / M ADM Date: 07/18/23 Loc: ER Room: Type: [facility] ER Attending Dr: Copies to: Clem [...] Anita Henao M.D.07/18/2023 5:44 PM Dictation Location: [place] [address] Transcribed By: [facility] 07/18/23 174 Dictated By: Anita Henao MD 07/18/23 173 Signed By: 07/18/23 174 Normal [facility] Complete Blood Count Auto Di ffon 07-18-2023 Basophils (Bld) [#/Vol] 0.1 10*3/uL Normal 0.0-0.2 [facility] Comment on above: Result Comment: PERF ORMED BY: [place] [address] PATHOLOGIST [employer] ALYSSA MOSQUEDA M.D. Performed By: #### L IPID, [id number], TSH3 wRFLX, CMP, PSAS, CBC, FE and TIBC, B12 #### [address] Basophils/100 WBC (Bld) 1.5 % Normal . [facility] Comment on above: Performed By: #### L IPID, [id number], TSH3 wRFLX, CMP, PSAS, CBC, FE and TIBC, B12 #### [address] Eosinophils (Bld) [#/Vol] 0.1 10*3/uL Normal 0.0-0.45 [facility] Comment on above: Performed By: #### L IPID, [id number], TSH3 wRFLX, CMP, PSAS, CBC, FE and TIBC, B12 #### [address] Eosinophils/100 WBC (Bld) 0.6 % Normal . [facility] Comment on above: Performed By: #### L IPID, [id number], TSH3 wRFLX, CMP, PSAS, CBC, FE and TIBC, B12 #### [address] Erythrocyte distribution width (RBC) [Ratio] 13.9 % Normal 12.0-14.8 [facility] Comment on above: Performed By: #### L IPID, [id number], TSH3 wRFLX, CMP, PSAS, CBC, FE and TIBC, B12 #### [address] Hematocrit (Bld) [Volume fraction] 44.1 % Normal 38.8-50.0 [facility] Comment on above: Performed By: #### L IPID, [id number], TSH3 wRFLX, CMP, PSAS, CBC, FE and TIBC, B12 #### [address] Hemoglobin (Bld) [Mass/Vol] 15.2 g/dL Normal 13.0-17.0 [facility] Comment on above: Performed By: #### L IPID, [id number], TSH3 wRFLX, CMP, PSAS, CBC, FE and TIBC, B12 #### [address] Lymphocytes (Bld) [#/Vol] 3.3 10*3/uL Normal 1.00-4.8 [facility] Comment on above: Performed By: #### L IPID, [id number], TSH3 wRFLX, CMP, PSAS, CBC, FE and TIBC, B12 #### [address] Lymphocytes/100 WBC (Bld) 34.2 % Normal . [facility] Comment on above: Performed By: #### L IPID, [id number], TSH3 wRFLX, CMP, PSAS, CBC, FE and TIBC, B12 #### [address] MCH (RBC) [Entitic mass] 30.5 pg Normal 27.5-35.2 [facility] Comment on above: Performed By: #### L IPID, [id number], TSH3 wRFLX, CMP, PSAS, CBC, FE and TIBC, B12 #### [address] MCV (RBC) [Entitic vol] 88.4 fL Normal 83.5-101 [facility] Comment on above: Performed By: #### L IPID, [id number], TSH3 wRFLX, CMP, PSAS, CBC, FE and TIBC, B12 #### [address] Mean Corpuscular HGB Conc 34.5 g/dL Normal 32.5-35.6 [facility] Comment on above: Performed By: #### L IPID, [id number], TSH3 wRFLX, CMP, PSAS, CBC, FE and TIBC, B12 #### [address] Monocytes (Bld) [#/Vol] 0.6 10*3/uL Normal 0.0-0.8 [facility] Comment on above: Performed By: #### L IPID, [id number], TSH3 wRFLX, CMP, PSAS, CBC, FE and TIBC, B12 #### [address] Monocytes/100 WBC (Bld) 15.71 % Normal 0.00-20.00 [facility] Comment on above: Performed By: #### L IPID, [id number], TSH3 wRFLX, CMP, PSAS, CBC, FE and TIBC, B12 #### [address] Monocytes/100 WBC (Bld) 6.8 % Normal . [facility] Comment on above: Performed By: #### L IPID, [id number], TSH3 wRFLX, CMP, PSAS, CBC, FE and TIBC, B12 #### [address] Neutrophils (Bld) [#/Vol] 5.4 10*3/uL Normal 1.8-7.7 [facility] Comment on above: Performed By: #### L IPID, [id number], TSH3 wRFLX, CMP, PSAS, CBC, FE and TIBC, B12 #### [address] Neutrophils/100 WBC (Bld) 56.9 % Normal . [facility] Comment on above: Performed By: #### L IPID, [id number], TSH3 wRFLX, CMP, PSAS, CBC, FE and TIBC, B12 #### [address] NRBC% 0.2 /100{WBC} Normal 0-0.5 [facility] Comment on above: Performed By: #### L IPID, [id number], TSH3 wRFLX, CMP, PSAS, CBC, FE and TIBC, B12 #### [address] Platelet mean volume (Bld) [Entitic vol] 8.2 fL Normal 6.6-10.1 [facility] Comment on above: Performed By: #### L IPID, [id number], TSH3 wRFLX, CMP, PSAS, CBC, FE and TIBC, B12 #### [address] Platelets (Bld) [#/Vol] 189 10*3/uL Normal 150-450 [facility] Comment on above: Performed By: #### L IPID, [id number], TSH3 wRFLX, CMP, PSAS, CBC, FE and TIBC, B12 #### [address] RBC (Bld) [#/Vol] 4.99 10*6/uL Normal 3.90-5.60 [facility] Comment on above: Performed By: #### L IPID, [id number], TSH3 wRFLX, CMP, PSAS, CBC, FE and TIBC, B12 #### [address] WBC (Bld) [#/Vol] 9.5 10*3/uL Normal 4.1-10.5 [facility] Comment on above: Performed By: #### L IPID, [id number], TSH3 wRFLX, CMP, PSAS, CBC, FE and TIBC, B12 #### [address] Comprehensive Metabolic Pane yumi 07-18-2023 Albumin [Mass/Vol] 4.3 g/dL Normal 3.5-5.7 [facility] Comment on above: Performed By: #### L IPID, [id number], TSH3 wRFLX, CMP, PSAS, CBC, FE and TIBC, B12 #### [address] Albumin/Globulin [Mass ratio] 1.4 {ratio} Normal [facility] Comment on above: Performed By: #### L IPID, [id number], TSH3 wRFLX, CMP, PSAS, CBC, FE and TIBC, B12 #### [address] ALP [Catalytic activity/Vol] 71 U/L Normal 34-104 [facility] Comment on above: Performed By: #### L IPID, [id number], TSH3 wRFLX, CMP, PSAS, CBC, FE and TIBC, B12 #### [address] ALT [Catalytic activity/Vol] 28 U/L Normal 7-52 [facility] Comment on above: Performed By: #### L IPID, [id number], TSH3 wRFLX, CMP, PSAS, CBC, FE and TIBC, B12 #### [address] Anion gap [Moles/Vol] 9.7 mmol/L Normal 6.0-15.0 [facility] Comment on above: Performed By: #### L IPID, [id number], TSH3 wRFLX, CMP, PSAS, CBC, FE and TIBC, B12 #### [address] AST [Catalytic activity/Vol] 24 U/L Normal 13-39 [facility] Comment on above: Performed By: #### L IPID, [id number], TSH3 wRFLX, CMP, PSAS, CBC, FE and TIBC, B12 #### [address] Bilirubin [Mass/Vol] 0.5 mg/dL Normal 0.3-1.0 [facility] Comment on above: Performed By: #### L IPID, [id number], TSH3 wRFLX, CMP, PSAS, CBC, FE and TIBC, B12 #### [address] Calcium [Mass/Vol] 9.3 mg/dL Normal 8.6-10.3 [facility] Comment on above: Performed By: #### L IPID, [id number], TSH3 wRFLX, CMP, PSAS, CBC, FE and TIBC, B12 #### [address] Chloride [Moles/Vol] 104 mmol/L Normal 98-107 [facility] Comment on above: Performed By: #### L IPID, [id number], TSH3 wRFLX, CMP, PSAS, CBC, FE and TIBC, B12 #### [address] CO2 [Moles/Vol] 28.5 mmol/L Normal 21.0-31.0 [facility] Comment on above: Performed By: #### L IPID, [id number], TSH3 wRFLX, CMP, PSAS, CBC, FE and TIBC, B12 #### [address] Creatinine [Mass/Vol] 1.10 mg/dL Normal 0.70-1.30 [facility] Comment on above: Performed By: #### L IPID, [id number], TSH3 wRFLX, CMP, PSAS, CBC, FE and TIBC, B12 #### [facility] [address] Creatinine Clr Calc Pharmacy 89.06 Normal [facility] Comment on above: Performed By: #### L IPID, [id number], TSH3 wRFLX, CMP, PSAS, CBC, FE and TIBC, B12 #### [facility] [address] GFR/1.73 sq M.predicted MDRD (S/P/Bld) [Vol rate/Area] mL/min/{1.73_m2} Normal [facility] Comment on above: Performed By: #### L IPID, [id number], TSH3 wRFLX, CMP, PSAS, CBC, FE and TIBC, B12 #### [facility] [address] Globulin (S) [Mass/Vol] 3.1 g/dL Normal [facility] Comment on above: Performed By: #### L IPID, [id number], TSH3 wRFLX, CMP, PSAS, CBC, FE and TIBC, B12 #### [facility] [address] Glucose [Mass/Vol] 104 mg/dL High 70-100 [facility] Comment on above: Result Comment: [place] Glucose Reference Range is dependent on time and content of last meal. Glucose of more than 200 mg/dL in a nonstressed, ambulatory subject supports the diagnosis of Diabetes Mellitus. ADA recommended reference range Performed By: #### L IPID, [id number], TSH3 wRFLX, CMP, PSAS, CBC, FE and TIBC, B12 #### [address] Potassium [Moles/Vol] 4.2 mmol/L Normal 3.5-5.1 [facility] Comment on above: Performed By: #### L IPID, [id number], TSH3 wRFLX, CMP, PSAS, CBC, FE and TIBC, B12 #### [address] Protein [Mass/Vol] 7.4 g/dL Normal 6.4-8.9 [facility] Comment on above: Performed By: #### L IPID, [id number], TSH3 wRFLX, CMP, PSAS, CBC, FE and TIBC, B12 #### [address] Sodium [Moles/Vol] 138 mmol/L Normal 136-145 [facility] Comment on above: Performed By: #### L IPID, [id number], TSH3 wRFLX, CMP, PSAS, CBC, FE and TIBC, B12 #### [address] Urea nitrogen [Mass/Vol] 16 mg/dL Normal 7-25 [facility] Comment on above: Performed By: #### L IPID, [id number], TSH3 wRFLX, CMP, PSAS, CBC, FE and TIBC, B12 #### [address] Dipstick and Microscopicon 0 07-18-2023 Appearance (U) Clear Normal Clear [facility] Comment on above: Order Comment: Reaso n for Exam Type 2 diabetes mellitus with other specified complication Reason for Exam Neuropathy Performed By: #### L IPID, [id number], TSH3 wRFLX, CMP, PSAS, CBC, FE and TIBC, B12 #### [address] Bacteria,Urine None Seen Normal None Seen [facility] Comment on above: Order Comment: Reaso n for Exam Type 2 diabetes mellitus with other specified complication Reason for Exam Neuropathy Performed By: #### L IPID, [id number], TSH3 wRFLX, CMP, PSAS, CBC, FE and TIBC, B12 #### [address] Bilirubin,Urine Negative Normal Negative [facility] Comment on above: Order Comment: Reaso n for Exam Type 2 diabetes mellitus with other specified complication Reason for Exam Neuropathy Performed By: #### L IPID, [id number], TSH3 wRFLX, CMP, PSAS, CBC, FE and TIBC, B12 #### [facility] [address] Color (U) Yellow Normal Yellow [facility] Comment on above: Order Comment: Reaso n for Exam Type 2 diabetes mellitus with other specified complication Reason for Exam Neuropathy Performed By: #### L IPID, [id number], TSH3 wRFLX, CMP, PSAS, CBC, FE and TIBC, B12 #### [address] Glucose Ql (U) >=1000 High Normal [facility] Comment on above: Order Comment: Reaso n for Exam Type 2 diabetes mellitus with other specified complication Reason for Exam Neuropathy Performed By: #### L IPID, [id number], TSH3 wRFLX, CMP, PSAS, CBC, FE and TIBC, B12 #### [address] Hyaline Casts,Urine None Seen Normal 0-8 [facility] Comment on above: Order Comment: Reaso n for Exam Type 2 diabetes mellitus with other specified complication Reason for Exam Neuropathy Result Comment: PERF ORMED BY: [place] [address] [employer] ALYSSA MOSQUEDA M.D. Performed By: #### L IPID, [id number], TSH3 wRFLX, CMP, PSAS, CBC, FE and TIBC, B12 #### [address] Ketones Ql (U) Negative Normal Negative [facility] Comment on above: Order Comment: Reaso n for Exam Type 2 diabetes mellitus with other specified complication Reason for Exam Neuropathy Performed By: #### L IPID, [id number], TSH3 wRFLX, CMP, PSAS, CBC, FE and TIBC, B12 #### [address] Leukocyte esterase Test strip Ql (U) Negative Normal Negative [facility] Comment on above: Order Comment: Reaso n for Exam Type 2 diabetes mellitus with other specified complication Reason for Exam Neuropathy Performed By: #### L IPID, [id number], TSH3 wRFLX, CMP, PSAS, CBC, FE and TIBC, B12 #### [address] Nitrite,Urine Negative Normal Negative [facility] Comment on above: Order Comment: Reaso n for Exam Type 2 diabetes mellitus with other specified complication Reason for Exam Neuropathy Performed By: #### L IPID, [id number], TSH3 wRFLX, CMP, PSAS, CBC, FE and TIBC, B12 #### [address] Occult Blood,Urine Negative Normal Negative [facility] Comment on above: Order Comment: Reaso n for Exam Type 2 diabetes mellitus with other specified complication Reason for Exam Neuropathy Result Comment: PERF ORMED BY: [place] [address] PATHOLOGIST [employer] ALYSSA MOSQUEDA M.D. Performed By: #### L IPID, [id number], TSH3 wRFLX, CMP, PSAS, CBC, FE and TIBC, B12 #### [address] pH (U) 6.5 [pH] Normal 5.0-9.0 [facility] Comment on above: Order Comment: Reaso n for Exam Type 2 diabetes mellitus with other specified complication Reason for Exam Neuropathy Performed By: #### L IPID, [id number], TSH3 wRFLX, CMP, PSAS, CBC, FE and TIBC, B12 #### [address] Protein (U) [Mass/Vol] 30 mg/dL High Negative [facility] Comment on above: Order Comment: Reaso n for Exam Type 2 diabetes mellitus with other specified complication Reason for Exam Neuropathy Performed By: #### L IPID, [id number], TSH3 wRFLX, CMP, PSAS, CBC, FE and TIBC, B12 #### [address] RBC LM.HPF (Urine sed) [#/Area] 0 /[HPF] Normal 0-4 [facility] Comment on above: Order Comment: Reaso n for Exam Type 2 diabetes mellitus with other specified complication Reason for Exam Neuropathy Performed By: #### L IPID, [id number], TSH3 wRFLX, CMP, PSAS, CBC, FE and TIBC, B12 #### [address] Specificy [place],Urine 1.021 Normal 1.001-1.03 0 [facility] Comment on above: Order Comment: Reaso n for Exam Type 2 diabetes mellitus with other specified complication Reason for Exam Neuropathy Performed By: #### L IPID, [id number], TSH3 wRFLX, CMP, PSAS, CBC, FE and TIBC, B12 #### [address] Squamous Epithelial Cell,Urine None Seen Normal 0-2 [facility] Comment on above: Order Comment: Reaso n for Exam Type 2 diabetes mellitus with other specified complication Reason for Exam Neuropathy Performed By: #### L IPID, [id number], TSH3 wRFLX, CMP, PSAS, CBC, FE and TIBC, B12 #### [address] Urobilinogen,Urine Normal Normal Normal [facility] Comment on above: Order Comment: Reaso n for Exam Type 2 diabetes mellitus with other specified complication Reason for Exam Neuropathy Performed By: #### L IPID, [id number], TSH3 wRFLX, CMP, PSAS, CBC, FE and TIBC, B12 #### [address] WBC,Urine None Seen Normal 0-4 [facility] Comment on above: Order Comment: Reaso n for Exam Type 2 diabetes mellitus with other specified complication Reason for Exam Neuropathy Performed By: #### L IPID, [id number], TSH3 wRFLX, CMP, PSAS, CBC, FE and TIBC, B12 #### [address] Hepatic Panelon 07-18-2023 Bilirubin,Indirect 0.4 mg/dL Normal [facility] Comment on above: Performed By: #### L IPID, [id number], TSH3 wRFLX, CMP, PSAS, CBC, FE and TIBC, B12 #### [address] Bilirubin.indirect [Mass/Vol] 0.10 mg/dL Normal 0.03-0.18 [facility] Comment on above: Performed By: #### L IPID, [id number], TSH3 wRFLX, CMP, PSAS, CBC, FE and TIBC, B12 #### [address] Lipaseon 07-18-2023 Lipase [Catalytic activity/Vol] 70.0 U/L Normal 11.0-82.0 [facility] Comment on above: Result Comment: PERF ORMED BY: [place] [address] PATH[employer] ALYSSA MOSQUEDA M.D. Performed By: #### L IPID, [id number], TSH3 wRFLX, CMP, PSAS, CBC, FE and TIBC, B12 #### [address] Complete Blood Count Auto Di ffon 07-16-2023 Basophils (Bld) [#/Vol] 0.1 10*3/uL Normal 0.0-0.2 [facility] Comment on above: Order Comment: Reaso n for Exam Type 2 diabetes mellitus with other specified complication Result Comment: PERF ORMED BY: [place] [address] PATHOLOGIST [employer] ALYSSA MOSQUEDA M.D. Performed By: #### L IPID, [id number], TSH3 wRFLX, CMP, PSAS, CBC, FE and TIBC, B12 #### [address] Basophils/100 WBC (Bld) 1.5 % Normal . [facility] Comment on above: Order Comment: Reaso n for Exam Type 2 diabetes mellitus with other specified complication Performed By: #### L IPID, [id number], TSH3 wRFLX, CMP, PSAS, CBC, FE and TIBC, B12 #### [address] Eosinophils (Bld) [#/Vol] 0.1 10*3/uL Normal 0.0-0.45 [facility] Comment on above: Order Comment: Reaso n for Exam Type 2 diabetes mellitus with other specified complication Performed By: #### L IPID, [id number], TSH3 wRFLX, CMP, PSAS, CBC, FE and TIBC, B12 #### [address] Eosinophils/100 WBC (Bld) 0.9 % Normal . [facility] Comment on above: Order Comment: Reaso n for Exam Type 2 diabetes mellitus with other specified complication Performed By: #### L IPID, [id number], TSH3 wRFLX, CMP, PSAS, CBC, FE and TIBC, B12 #### [address] Erythrocyte distribution width (RBC) [Ratio] 13.8 % Normal 12.0-14.8 [facility] Comment on above: Order Comment: Reaso n for Exam Type 2 diabetes mellitus with other specified complication Performed By: #### L IPID, [id number], TSH3 wRFLX, CMP, PSAS, CBC, FE and TIBC, B12 #### [address] Hematocrit (Bld) [Volume fraction] 43.9 % Normal 38.8-50.0 [facility] Comment on above: Order Comment: Reaso n for Exam Type 2 diabetes mellitus with other specified complication Performed By: #### L IPID, [id number], TSH3 wRFLX, CMP, PSAS, CBC, FE and TIBC, B12 #### [place] [address] [place] Hemoglobin (Bld) [Mass/Vol] 15.1 g/dL Normal 13.0-17.0 [facility] Comment on above: Order Comment: Reaso n for Exam Type 2 diabetes mellitus with other specified complication Performed By: #### L IPID, [id number], TSH3 wRFLX, CMP, PSAS, CBC, FE and TIBC, B12 #### [address] Lymphocytes (Bld) [#/Vol] 2.7 10*3/uL Normal 1.00-4.8 [facility] Comment on above: Order Comment: Reaso n for Exam Type 2 diabetes mellitus with other specified complication Performed By: #### L IPID, [id number], TSH3 wRFLX, CMP, PSAS, CBC, FE and TIBC, B12 #### [address] Lymphocytes/100 WBC (Bld) 35.8 % Normal . [facility] Comment on above: Order Comment: Reaso n for Exam Type 2 diabetes mellitus with other specified complication Performed By: #### L IPID, [id number], TSH3 wRFLX, CMP, PSAS, CBC, FE and TIBC, B12 #### [address] MCH (RBC) [Entitic mass] 30.5 pg Normal 27.5-35.2 [facility] Comment on above: Order Comment: Reaso n for Exam Type 2 diabetes mellitus with other specified complication Performed By: #### L IPID, [id number], TSH3 wRFLX, CMP, PSAS, CBC, FE and TIBC, B12 #### [address] MCV (RBC) [Entitic vol] 88.9 fL Normal 83.5-101 [facility] Comment on above: Order Comment: Reaso n for Exam Type 2 diabetes mellitus with other specified complication Performed By: #### L IPID, [id number], TSH3 wRFLX, CMP, PSAS, CBC, FE and TIBC, B12 #### [address] Mean Corpuscular HGB Conc 34.3 g/dL Normal 32.5-35.6 [facility] Comment on above: Order Comment: Reaso n for Exam Type 2 diabetes mellitus with other specified complication Performed By: #### L IPID, [id number], TSH3 wRFLX, CMP, PSAS, CBC, FE and TIBC, B12 #### [place] [address] [place] Monocytes (Bld) [#/Vol] 0.5 10*3/uL Normal 0.0-0.8 [facility] Comment on above: Order Comment: Reaso n for Exam Type 2 diabetes mellitus with other specified complication Performed By: #### L IPID, [id number], TSH3 wRFLX, CMP, PSAS, CBC, FE and TIBC, B12 #### [address] Monocytes/100 WBC (Bld) 6.5 % Normal . [facility] Comment on above: Order Comment: Reaso n for Exam Type 2 diabetes mellitus with other specified complication Performed By: #### L IPID, [id number], TSH3 wRFLX, CMP, PSAS, CBC, FE and TIBC, B12 #### [place] [address] [place] Neutrophils (Bld) [#/Vol] 4.2 10*3/uL Normal 1.8-7.7 [facility] Comment on above: Order Comment: Reaso n for Exam Type 2 diabetes mellitus with other specified complication Performed By: #### L IPID, [id number], TSH3 wRFLX, CMP, PSAS, CBC, FE and TIBC, B12 #### [place] [address] [place] Neutrophils/100 WBC (Bld) 55.3 % Normal . [facility] Comment on above: Order Comment: Reaso n for Exam Type 2 diabetes mellitus with other specified complication Performed By: #### L IPID, [id number], TSH3 wRFLX, CMP, PSAS, CBC, FE and TIBC, B12 #### [address] NRBC% 0.0 /100{WBC} Normal 0-0.5 [facility] Comment on above: Order Comment: Reaso n for Exam Type 2 diabetes mellitus with other specified complication Performed By: #### L IPID, [id number], TSH3 wRFLX, CMP, PSAS, CBC, FE and TIBC, B12 #### [address] Platelet mean volume (Bld) [Entitic vol] 9.2 fL Normal 6.6-10.1 [facility] Comment on above: Order Comment: Reaso n for Exam Type 2 diabetes mellitus with other specified complication Performed By: #### L IPID, [id number], TSH3 wRFLX, CMP, PSAS, CBC, FE and TIBC, B12 #### [address] Platelets (Bld) [#/Vol] 192 10*3/uL Normal 150-450 [facility] Comment on above: Order Comment: Reaso n for Exam Type 2 diabetes mellitus with other specified complication Performed By: #### L IPID, [id number], TSH3 wRFLX, CMP, PSAS, CBC, FE and TIBC, B12 #### [address] RBC (Bld) [#/Vol] 4.94 10*6/uL Normal 3.90-5.60 [facility] Comment on above: Order Comment: Reaso n for Exam Type 2 diabetes mellitus with other specified complication Performed By: #### L IPID, [id number], TSH3 wRFLX, CMP, PSAS, CBC, FE and TIBC, B12 #### [address] WBC (Bld) [#/Vol] 7.5 10*3/uL Normal 4.1-10.5 [facility] Comment on above: Order Comment: Reaso n for Exam Type 2 diabetes mellitus with other specified complication Performed By: #### L IPID, [id number], TSH3 wRFLX, CMP, PSAS, CBC, FE and TIBC, B12 #### [facility] [address] Comprehensive Metabolic Pane yumi 07-16-2023 Albumin [Mass/Vol] 4.3 g/dL Normal 3.5-5.7 [facility] Comment on above: Order Comment: Reaso n for Exam Type 2 diabetes mellitus with other specified complication Reason for Exam Neuropathy Performed By: #### L IPID, [id number], TSH3 wRFLX, CMP, PSAS, CBC, FE and TIBC, B12 #### [facility] [address] [place] [id number] [facility] Albumin/Globulin [Mass ratio] 1.7 {ratio} Normal [facility] Comment on above: Order Comment: Reaso n for Exam Type 2 diabetes mellitus with other specified complication Reason for Exam Neuropathy Performed By: #### L IPID, [id number], TSH3 wRFLX, CMP, PSAS, CBC, FE and TIBC, B12 #### [address] ALP [Catalytic activity/Vol] 78 U/L Normal 34-104 [facility] Comment on above: Order Comment: Reaso n for Exam Type 2 diabetes mellitus with other specified complication Reason for Exam Neuropathy Performed By: #### L IPID, [id number], TSH3 wRFLX, CMP, PSAS, CBC, FE and TIBC, B12 #### [address] ALT [Catalytic activity/Vol] 26 U/L Normal 7-52 [facility] Comment on above: Order Comment: Reaso n for Exam Type 2 diabetes mellitus with other specified complication Reason for Exam Neuropathy Performed By: #### L IPID, [id number], TSH3 wRFLX, CMP, PSAS, CBC, FE and TIBC, B12 #### [address] Anion gap [Moles/Vol] 9.8 mmol/L Normal 6.0-15.0 [facility] Comment on above: Order Comment: Reaso n for Exam Type 2 diabetes mellitus with other specified complication Reason for Exam Neuropathy Performed By: #### L IPID, [id number], TSH3 wRFLX, CMP, PSAS, CBC, FE and TIBC, B12 #### [facility] [address] AST [Catalytic activity/Vol] 22 U/L Normal 13-39 [facility] Comment on above: Order Comment: Reaso n for Exam Type 2 diabetes mellitus with other specified complication Reason for Exam Neuropathy Performed By: #### L IPID, [id number], TSH3 wRFLX, CMP, PSAS, CBC, FE and TIBC, B12 #### [facility] [address] [place] [address] Bilirubin [Mass/Vol] 0.4 mg/dL Normal 0.3-1.0 [facility] Comment on above: Order Comment: Reaso n for Exam Type 2 diabetes mellitus with other specified complication Reason for Exam Neuropathy Performed By: #### L IPID, [id number], TSH3 wRFLX, CMP, PSAS, CBC, FE and TIBC, B12 #### [address] Calcium [Mass/Vol] 9.4 mg/dL Normal 8.6-10.3 [facility] Comment on above: Order Comment: Reaso n for Exam Type 2 diabetes mellitus with other specified complication Reason for Exam Neuropathy Performed By: #### L IPID, [id number], TSH3 wRFLX, CMP, PSAS, CBC, FE and TIBC, B12 #### [facility] [address] [place] [address] Chloride [Moles/Vol] 105 mmol/L Normal 98-107 [facility] Comment on above: Order Comment: Reaso n for Exam Type 2 diabetes mellitus with other specified complication Reason for Exam Neuropathy Performed By: #### L IPID, [id number], TSH3 wRFLX, CMP, PSAS, CBC, FE and TIBC, B12 #### [address] CO2 [Moles/Vol] 29.4 mmol/L Normal 21.0-31.0 [facility] Comment on above: Order Comment: Reaso n for Exam Type 2 diabetes mellitus with other specified complication Reason for Exam Neuropathy Performed By: #### L IPID, [id number], TSH3 wRFLX, CMP, PSAS, CBC, FE and TIBC, B12 #### [facility] [address] Creatinine [Mass/Vol] 1.05 mg/dL Normal 0.70-1.30 [facility] Comment on above: Order Comment: Reaso n for Exam Type 2 diabetes mellitus with other specified complication Reason for Exam Neuropathy Performed By: #### L IPID, [id number], TSH3 wRFLX, CMP, PSAS, CBC, FE and TIBC, B12 #### [facility] [address] GFR/1.73 sq M.predicted MDRD (S/P/Bld) [Vol rate/Area] mL/min/{1.73_m2} Normal [facility] Comment on above: Order Comment: Reaso n for Exam Type 2 diabetes mellitus with other specified complication Reason for Exam Neuropathy Performed By: #### L IPID, [id number], TSH3 wRFLX, CMP, PSAS, CBC, FE and TIBC, B12 #### [facility] [address] Globulin (S) [Mass/Vol] 2.5 g/dL Normal [facility] Comment on above: Order Comment: Reaso n for Exam Type 2 diabetes mellitus with other specified complication Reason for Exam Neuropathy Performed By: #### L IPID, [id number], TSH3 wRFLX, CMP, PSAS, CBC, FE and TIBC, B12 #### [facility] [address] Glucose [Mass/Vol] 91 mg/dL Normal 70-100 [facility] Comment on above: Order Comment: Reaso n for Exam Type 2 diabetes mellitus with other specified complication Reason for Exam Neuropathy Result Comment: [place] Glucose Reference Range is dependent on time and content of last meal. Glucose of more than 200 mg/dL in a nonstressed, ambulatory subject supports the diagnosis of Diabetes Mellitus. ADA recommended reference range Performed By: #### L IPID, [id number], TSH3 wRFLX, CMP, PSAS, CBC, FE and TIBC, B12 #### [facility] [address] Potassium [Moles/Vol] 4.2 mmol/L Normal 3.5-5.1 [facility] Comment on above: Order Comment: Reaso n for Exam Type 2 diabetes mellitus with other specified complication Reason for Exam Neuropathy Performed By: #### L IPID, [id number], TSH3 wRFLX, CMP, PSAS, CBC, FE and TIBC, B12 #### [facility] [address] [place] [address] Protein [Mass/Vol] 6.8 g/dL Normal 6.4-8.9 [facility] Comment on above: Order Comment: Reaso n for Exam Type 2 diabetes mellitus with other specified complication Reason for Exam Neuropathy Performed By: #### L IPID, [id number], TSH3 wRFLX, CMP, PSAS, CBC, FE and TIBC, B12 #### [address] Sodium [Moles/Vol] 140 mmol/L Normal 136-145 [facility] Comment on above: Order Comment: Reaso n for Exam Type 2 diabetes mellitus with other specified complication Reason for Exam Neuropathy Performed By: #### L IPID, [id number], TSH3 wRFLX, CMP, PSAS, CBC, FE and TIBC, B12 #### [facility] [address] [place] [address] Urea nitrogen [Mass/Vol] 19 mg/dL Normal 7-25 [facility] Comment on above: Order Comment: Reaso n for Exam Type 2 diabetes mellitus with other specified complication Reason for Exam Neuropathy Performed By: #### L IPID, [id number], TSH3 wRFLX, CMP, PSAS, CBC, FE and TIBC, B12 #### [facility] [address] [place], [place] [id number] [facility] Iron and TIBC Profileon 03-0 5-2024 % Iron Saturation 26.9 % Normal 20-50 [facility] Comment on above: Order Comment: Reaso n for Exam Type 2 diabetes mellitus with other specified complication Reason for Exam Neuropathy Performed By: #### L IPID, [id number], TSH3 wRFLX, CMP, PSAS, CBC, FE and TIBC, B12 #### [facility] [address] [place] [address] Iron [Mass/Vol] 97 ug/dL Normal 50-212 [facility] Comment on above: Order Comment: Reaso n for Exam Type 2 diabetes mellitus with other specified complication Reason for Exam Neuropathy Performed By: #### L IPID, [id number], TSH3 wRFLX, CMP, PSAS, CBC, FE and TIBC, B12 #### [facility] [address] [place] [address] Total Iron Binding Capacity 361 ug/dL Normal 255-450 [facility] Comment on above: Order Comment: Reaso n for Exam Type 2 diabetes mellitus with other specified complication Reason for Exam Neuropathy Performed By: #### L IPID, [id number], TSH3 wRFLX, CMP, PSAS, CBC, FE and TIBC, B12 #### [facility] [address] [place] [address] Transferrin [Mass/Vol] 258 mg/dL Normal 203-362 [facility] Comment on above: Order Comment: Reaso n for Exam Type 2 diabetes mellitus with other specified complication Reason for Exam Neuropathy Performed By: #### L IPID, [id number], TSH3 wRFLX, CMP, PSAS, CBC, FE and TIBC, B12 #### [facility] [address] [place] [address] Lipid Panelon 07-16-2023 Cholesterol [Mass/Vol] 186 mg/dL Normal 140-200 [facility] Comment on above: Order Comment: Reaso n for Exam Type 2 diabetes mellitus with other specified complication Reason for Exam Neuropathy Result Comment: Chol less than 200 mg/dl low risk Chol 201-239 mg/dl borderline risk Chol 240 mg/dl and greater high risk Performed By: #### L IPID, [id number], TSH3 wRFLX, CMP, PSAS, CBC, FE and TIBC, B12 #### [place] [address] [place] Cholesterol in HDL [Mass/Vol] 44 mg/dL Normal 23-92 [facility] Comment on above: Order Comment: Reaso n for Exam Type 2 diabetes mellitus with other specified complication Reason for Exam Neuropathy Result Comment: HDL CHOL ATP-III CLASSIFICATION Cardiovascular Risk HDL > or equal to 60 mg/dL LOW HDL < 40 mg/dL HIGH Performed By: #### L IPID, [id number], TSH3 wRFLX, CMP, PSAS, CBC, FE and TIBC, B12 #### [facility] [address] Cholesterol.total/Chol esterol in HDL [Mass ratio] 4.2 {ratio} Normal <5.0 [facility] Comment on above: Order Comment: Reaso n for Exam Type 2 diabetes mellitus with other specified complication Reason for Exam Neuropathy Performed By: #### L IPID, [id number], TSH3 wRFLX, CMP, PSAS, CBC, FE and TIBC, B12 #### [facility] [address] LDL Cholesterol,Calculated 105 mg/dL High 0-100 [facility] Comment on above: Order Comment: Reaso n for Exam Type 2 diabetes mellitus with other specified complication Reason for Exam Neuropathy Result Comment: LDL ATP III CLASSIFICATION LDL less than 100 mg/dL Optimal LDL 100-129 mg/dL Near or above optimal LDL 130-159 mg/dL Borderline high LDL 160-189 mg/dL High LDL greater than 189 mg/dL Very high Performed By: #### L IPID, [id number], TSH3 wRFLX, CMP, PSAS, CBC, FE and TIBC, B12 #### [facility] [address] [place] [id number] [facility] Triglyceride w/Reflex 187 mg/dL High 0-149 [facility] Comment on above: Order Comment: Reaso n for Exam Type 2 diabetes mellitus with other specified complication Reason for Exam Neuropathy Result Comment: TRIG ATP III CLASSIFICATION TRIG less than 150 mg/dL Normal TRIG 150-199 mg/dL Borderline high TRIG 200-500 mg/dL High TRIG greater than 500 mg/dL Very high Standard traceable to the Center for Disease Conrtrol and Prevention (CDC) test method. Performed By: #### L IPID, [id number], TSH3 wRFLX, CMP, PSAS, CBC, FE and TIBC, B12 #### [address] VLDL CHOLESTEROL 37 mg/dL Normal [facility] Comment on above: Order Comment: Reaso n for Exam Type 2 diabetes mellitus with other specified complication Reason for Exam Neuropathy Performed By: #### L IPID, [id number], TSH3 wRFLX, CMP, PSAS, CBC, FE and TIBC, B12 #### [address] PSA Screen (Yearly Only)on 0 07-16-2023 PSA Screen (Yearly Only) 0.430 ng/mL Normal 0.000-4.00 0 [facility] Comment on above: Order Comment: Reaso n for Exam Encounter for prostate cancer screening Result Comment: Seri al tumor marker results determined by assays using different manufacturers or methods may not be comparable. [facility] staffing assistant and method: [employer] DXI, CHEMILUMINESCENT IMMUNOASSAY. PERFORMED BY: [place] [address] PATHOLOGIST [employer] ALYSSA MOSQUEDA M.D. Performed By: #### L IPID, [id number], TSH3 wRFLX, CMP, PSAS, CBC, FE and TIBC, B12 #### [address] Thyroid Stim Hormone w/Rflxo n 07-16-2023 Thyroid Stim Hormone w/Rflx 1.41 u[iU]/mL Normal 0.45-5.33 [facility] Comment on above: Order Comment: Reaso n for Exam Type 2 diabetes mellitus with other specified complication Reason for Exam Neuropathy Performed By: #### L IPID, [id number], TSH3 wRFLX, CMP, PSAS, CBC, FE and TIBC, B12 #### [address] Vitamin B12on 07-16-2023 Cobalamin (Vitamin B12) [Mass/Vol] 702 pg/mL Normal 180-914 [facility] Comment on above: Order Comment: Reaso n for Exam Type 2 diabetes mellitus with other specified complication Reason for Exam Neuropathy Performed By: #### L IPID, [id number], TSH3 wRFLX, CMP, PSAS, CBC, FE and TIBC, B12 #### [facility] [address] Vitamin D 25 Hydroxy Totalon 07-16-2023 Vitamin D 25 Hydroxy Total 14.0 ng/mL Low 30-100 [facility] Comment on above: Order Comment: Reaso n for Exam Type 2 diabetes mellitus with other specified complication Reason for Exam Neuropathy Result Comment: VIK MIN D STATUS 25(OH)VITAMIN D RANGE (ng/mL) Deficient <20 Insufficient 20 to <30 Sufficient 30 to 100 Reference: Marilyn MF,April RHOADES, Tracy PARKER, et al. Evaluation,treatment, and prevention of vitamin D deficiency; an Endocrine Society clinical practice guideline. JCEM. 2010; 96(7):1911-30. PERFORMED BY: [place] [address] PATHOLOGIST [employer]ER ALYSSA MOSQUEDA M.D. Performed By: #### L IPID, [id number], TSH3 wRFLX, CMP, PSAS, CBC, FE and TIBC, B12 #### [facility] [address] [place] [address] Alanine aminotransferase [En zymatic activity/volume] in Serum or PlasmaOrdered By: Chaim Reeder on 04-25-2023 ALT [Catalytic activity/Vol] 27 U/L Normal 7-52 [facility] Comment on above: Order Comment: Reaso n for Exam Encounter for prostate cancer screening Performed By: #### L IPID, [id number], TSH3 wRFLX, CMP, PSAS, CBC, FE and TIBC, B12 #### [facility] [address] [place] [address] [place] Albumin [Mass/volume] in Ser um or Plasma by Bromocresol green (BCG) dye binding methoOrdered By: Chaim Reeder on 04-25-2023 Albumin BCG dye [Mass/Vol] 4.2 g/dL 3.5-5.7 [facility] Alkaline phosphatase [Enzyma tic activity/volume] in Serum or PlasmaOrdered By: Chaim Reeder on 04-25-2023 ALP [Catalytic activity/Vol] 91 U/L Normal 34-104 [facility] Comment on above: Order Comment: Reaso n for Exam Encounter for prostate cancer screening Performed By: #### L IPID, [id number], TSH3 wRFLX, CMP, PSAS, CBC, FE and TIBC, B12 #### [facility] [address] Aspartate aminotransferase [ Enzymatic activity/volume] in Serum or PlasmaOrdered By: Chaim Reeder on 04-25-2023 AST [Catalytic activity/Vol] 18 U/L Normal 13-39 [facility] Comment on above: Order Comment: Reaso n for Exam Encounter for prostate cancer screening Performed By: #### L IPID, [id number], TSH3 wRFLX, CMP, PSAS, CBC, FE and TIBC, B12 #### [facility] [address] [place] [address] Automated basophil %Ordered By: Chaim Reeder on 04-25-2023 Basophils/100 WBC (Bld) 0.7 % Normal . [facility] Comment on above: Order Comment: Reaso n for Exam Encounter for prostate cancer screening Performed By: #### L IPID, [id number], TSH3 wRFLX, CMP, PSAS, CBC, FE and TIBC, B12 #### [facility] [address] [place] [address] Automated basophil countOrde red By: Chaim Reeder on 04-25-2023 Basophils (Bld) [#/Vol] 0.1 10*3/uL Normal 0.0-0.2 [facility] Comment on above: Order Comment: Reaso n for Exam Encounter for prostate cancer screening Result Comment: PERF ORMED BY: [place] [address] PATHOLOGIST [employer] ALYSSA MOSQUEDA M.D. Performed By: #### L IPID, [id number], TSH3 wRFLX, CMP, PSAS, CBC, FE and TIBC, B12 #### [facility] [address] Automated blood monocyte cou ntOrdered By: Chaim Reeder on 04-25-2023 Monocytes (Bld) [#/Vol] 0.6 10*3/uL Normal 0.0-0.8 [facility] Comment on above: Order Comment: Reaso n for Exam Encounter for prostate cancer screening Performed By: #### L IPID, [id number], TSH3 wRFLX, CMP, PSAS, CBC, FE and TIBC, B12 #### [facility] [address] Automated eosinophil %Ordere d By: Chaim Reeder on 04-25-2023 Eosinophils/100 WBC (Bld) 2.3 % Normal . [facility] Comment on above: Order Comment: Reaso n for Exam Encounter for prostate cancer screening Performed By: #### L IPID, [id number], TSH3 wRFLX, CMP, PSAS, CBC, FE and TIBC, B12 #### [address] Automated eosinophil countOr dered By: Chaim Reeder on 04-25-2023 Eosinophils (Bld) [#/Vol] 0.2 10*3/uL Normal 0.0-0.45 [facility] Comment on above: Order Comment: Reaso n for Exam Encounter for prostate cancer screening Performed By: #### L IPID, [id number], TSH3 wRFLX, CMP, PSAS, CBC, FE and TIBC, B12 #### [facility] [address] [place] [address] [place] Automated monocyte %Ordered By: Chaim Reeder on 04-25-2023 Monocytes/100 WBC (Bld) 8.3 % Normal . [facility] Comment on above: Order Comment: Reaso n for Exam Encounter for prostate cancer screening Performed By: #### L IPID, [id number], TSH3 wRFLX, CMP, PSAS, CBC, FE and TIBC, B12 #### [facility] [address] [place] [address] [place] Automated neutrophil %Ordere d By: Chaim Reeder on 04-25-2023 Neutrophils/100 WBC (Bld) 59.8 % Normal . [facility] Comment on above: Order Comment: Reaso n for Exam Encounter for prostate cancer screening Performed By: #### L IPID, [id number], TSH3 wRFLX, CMP, PSAS, CBC, FE and TIBC, B12 #### [facility] [address] [place] [id number] [facility] Bilirubin.total [Mass/volume ] in Serum or PlasmaOrdered By: Chaim Reeder on 04-25-2023 Bilirubin [Mass/Vol] 0.4 mg/dL Normal 0.3-1.[address] [facility] Comment on above: Order Comment: Reaso n for Exam Encounter for prostate cancer screening Performed By: #### L IPID, [id number], TSH3 wRFLX, CMP, PSAS, CBC, FE and TIBC, B12 #### [facility] [address] [place] [id number] [place] Calcium [Mass/volume] in Ser um or PlasmaOrdered By: Chaim Reeder on 04-25-2023 Calcium [Mass/Vol] 9.4 mg/dL Normal 8.6-10.3 [facility] Comment on above: Order Comment: Reaso n for Exam Encounter for prostate cancer screening Performed By: #### L IPID, [id number], TSH3 wRFLX, CMP, PSAS, CBC, FE and TIBC, B12 #### [facility] [address] [place] [id number] [place] Carbon dioxide, total [Moles /volume] in Serum or PlasmaOrdered By: Chaim Reeder on 04-25-2023 CO2 [Moles/Vol] 31.1 mmol/L High 21.0-31.0 [facility] Comment on above: Order Comment: Reaso n for Exam Encounter for prostate cancer screening Performed By: #### L IPID, [id number], TSH3 wRFLX, CMP, PSAS, CBC, FE and TIBC, B12 #### [facility] [address] [place] [id number] [place] Chloride [Moles/volume] in S manohar or PlasmaOrdered By: Chaim Reeder on 04-25-2023 Chloride [Moles/Vol] 96 mmol/L Low 98-[address] [facility] Comment on above: Order Comment: Reaso n for Exam Encounter for prostate cancer screening Performed By: #### L IPID, [id number], TSH3 wRFLX, CMP, PSAS, CBC, FE and TIBC, B12 #### [facility] [address] [place] [id number] [place] Cholesterol [Mass/volume] in Serum or PlasmaOrdered By: Chaim Reeder on 04-25-2023 Cholesterol [Mass/Vol] 190 mg/dL Normal 140-200 [facility] Comment on above: Chol less than 200 m g/dl low riskChol 201-239 mg/dl borderline riskChol 240 mg/dl and greater high risk Order Comment: Reaso n for Exam Type 2 diabetes mellitus with other specified complication Reason for Exam Neuropathy Result Comment: Chol less than 200 mg/dl low risk Chol 201-239 mg/dl borderline risk Chol 240 mg/dl and greater high risk Performed By: #### L IPID, [id number], TSH3 wRFLX, CMP, PSAS, CBC, FE and TIBC, B12 #### [facility] [address] [place] [address] [place] Cholesterol in LDL Calc [Mas s/Vol]Ordered By: Chaim Reeder on 04-25-2023 Cholesterol in LDL [Mass/Vol] TNP [facility] Comment on above: Test not performed Cholesterol in LDL [Mass/vol ume] in Serum or PlasmaOrdered By: Chaim Reeder on 04-25-2023 Cholesterol in LDL [Mass/Vol] 90 mg/dL 0-100 [facility] Comment on above: LDL ATP III CLASSIFI CATIONLDL less than 100 mg/dL OptimalLDL 100-129 mg/dL Near or above optimalLDL 130-159 mg/dL Borderline highLDL 160-189 mg/dL HighLDL greater than 189 mg/dL Very high Cholesterol in VLDL Calc [Ma ss/Vol]Ordered By: Chaim Reeder on 04-25-2023 Cholesterol in VLDL [Mass/Vol] 129 mg/dL [facility] Complete Blood Count Auto Di ffon 04-25-2023 Mean Corpuscular HGB Conc 34.7 g/dL Normal 32.5-35.6 [facility] Comment on above: Order Comment: Reaso n for Exam Encounter for prostate cancer screening Performed By: #### L IPID, [id number], TSH3 wRFLX, CMP, PSAS, CBC, FE and TIBC, B12 #### [facility] [address] NRBC% 0.1 /100{WBC} Normal 0-0.5 [facility] Comment on above: Order Comment: Reaso n for Exam Encounter for prostate cancer screening Performed By: #### L IPID, [id number], TSH3 wRFLX, CMP, PSAS, CBC, FE and TIBC, B12 #### [facility] [address] [place] [address] Comprehensive Metabolic Pane yumi 04-25-2023 Albumin [Mass/Vol] 4.2 g/dL Normal 3.5-5.7 [facility] Comment on above: Order Comment: Reaso n for Exam Encounter for prostate cancer screening Performed By: #### L IPID, [id number], TSH3 wRFLX, CMP, PSAS, CBC, FE and TIBC, B12 #### [facility] [address] [place] [address] GFR/1.73 sq M.predicted MDRD (S/P/Bld) [Vol rate/Area] mL/min/{1.73_m2} Normal [facility] Comment on above: Order Comment: Reaso n for Exam Encounter for prostate cancer screening Performed By: #### L IPID, [id number], TSH3 wRFLX, CMP, PSAS, CBC, FE and TIBC, B12 #### [facility] [address] Creatinine [Mass/volume] in Serum or PlasmaOrdered By: Chaim Reeder on 04-25-2023 Creatinine [Mass/Vol] 1.37 mg/dL High 0.70-1.30 [facility] Comment on above: Order Comment: Reaso n for Exam Encounter for prostate cancer screening Performed By: #### L IPID, [id number], TSH3 wRFLX, CMP, PSAS, CBC, FE and TIBC, B12 #### [facility] [address] Erythrocyte distribution wid th [Ratio] by Automated countOrdered By: Chaim Reeder on 04-25-2023 Erythrocyte distribution width (RBC) [Ratio] 13.3 % Normal 12.0-14.8 [facility] Comment on above: Order Comment: Reaso n for Exam Encounter for prostate cancer screening Performed By: #### L IPID, [id number], TSH3 wRFLX, CMP, PSAS, CBC, FE and TIBC, B12 #### [facility] [address] Erythrocytes [#/volume] in B lood by Automated countOrdered By: Chaim Reeder on 04-25-2023 RBC (Bld) [#/Vol] 5.46 10*6/uL Normal 3.90-5.60 [facility] Comment on above: Order Comment: Reaso n for Exam Encounter for prostate cancer screening Performed By: #### L IPID, [id number], TSH3 wRFLX, CMP, PSAS, CBC, FE and TIBC, B12 #### [facility] [address] Glucose [Mass/volume] in Ser um or PlasmaOrdered By: Chaim Reeder on 04-25-2023 Glucose [Mass/Vol] 447 mg/dL High 70-100 [facility] Comment on above: ADA recommended refe rence rangeRandom Glucose Reference Range is dependent on time and content of last meal. Glucose of more than 200 mg/dL in a nonstressed, ambulatory subject supports the diagnosis of Diabetes Mellitus. Order Comment: Reaso n for Exam Encounter for prostate cancer screening Result Comment: [place] om Glucose Reference Range is dependent on time and content of last meal. Glucose of more than 200 mg/dL in a nonstressed, ambulatory subject supports the diagnosis of Diabetes Mellitus. ADA recommended reference range Performed By: #### L IPID, [id number], TSH3 wRFLX, CMP, PSAS, CBC, FE and TIBC, B12 #### [facility] [address] [place] [address] [place] Hematocrit [Volume Fraction] of Blood by Automated countOrdered By: Chaim Reeder on 04-25-2023 Hematocrit (Bld) [Volume fraction] 48.0 % Normal 38.8-50.0 [facility] Comment on above: Order Comment: Reaso n for Exam Encounter for prostate cancer screening Performed By: #### L IPID, [id number], TSH3 wRFLX, CMP, PSAS, CBC, FE and TIBC, B12 #### [facility] [address] [place] [address] [place] Hemoglobin [Mass/volume] in BloodOrdered By: Chaim Reeder on 04-25-2023 Hemoglobin (Bld) [Mass/Vol] 16.7 g/dL Normal 13.0-17.0 [facility] Comment on above: Order Comment: Reaso n for Exam Encounter for prostate cancer screening Performed By: #### L IPID, [id number], TSH3 wRFLX, CMP, PSAS, CBC, FE and TIBC, B12 #### [facility] [address] [place] [address] [place] LDL Cholesterol Measuredon 1 06-26-2022 LDL Cholesterol Measured 90 mg/dL Normal 0-100 [facility] Comment on above: Order Comment: Reaso n for Exam Type 2 diabetes mellitus with other specified complication Reason for Exam Neuropathy Result Comment: LDL ATP III CLASSIFICATION LDL less than 100 mg/dL Optimal LDL 100-129 mg/dL Near or above optimal LDL 130-159 mg/dL Borderline high LDL 160-189 mg/dL High LDL greater than 189 mg/dL Very high Performed By: #### L IPID, [id number], TSH3 wRFLX, CMP, PSAS, CBC, FE and TIBC, B12 #### [facility] [address] [place] [id number] [place] Leukocytes [#/volume] correc janelle for nucleated erythrocytes in Blood by Automated counOrdered By: Chaim Reeder on 04-25-2023 WBC corrected for nucl RBC Auto (Bld) [#/Vol] 7.5 10*3/uL 4.1-10.5 [facility] Leukocytes [#/volume] in Blo od by Automated countOrdered By: Chaim Reeder on 04-25-2023 WBC (Bld) [#/Vol] 7.5 10*3/uL Normal 4.1-10.5 [facility] Comment on above: Order Comment: Reaso n for Exam Encounter for prostate cancer screening Performed By: #### L IPID, [id number], TSH3 wRFLX, CMP, PSAS, CBC, FE and TIBC, B12 #### [facility] [address] Lipid Panelon 04-25-2023 LDL Cholesterol,Calculated Not performed Normal 0-100 [facility] Comment on above: Order Comment: Reaso n for Exam Type 2 diabetes mellitus with other specified complication Reason for Exam Neuropathy Performed By: #### L IPID, [id number], TSH3 wRFLX, CMP, PSAS, CBC, FE and TIBC, B12 #### [facility] [address] Triglyceride w/Reflex 646 mg/dL High 0-149 [facility] Comment on above: Order Comment: Reaso n for Exam Type 2 diabetes mellitus with other specified complication Reason for Exam Neuropathy Result Comment: TRIG ATP III CLASSIFICATION TRIG less than 150 mg/dL Normal TRIG 150-199 mg/dL Borderline high TRIG 200-500 mg/dL High TRIG greater than 500 mg/dL Very high Standard traceable to the Center for Disease Conrtrol and Prevention (CDC) test method. If the triglyceride result is greater than 400, LDLC and related calculations cannot be calculated and resulted. Performed By: #### L IPID, [id number], TSH3 wRFLX, CMP, PSAS, CBC, FE and TIBC, B12 #### [facility] [address] VLDL CHOLESTEROL 129 mg/dL Normal [facility] Comment on above: Order Comment: Reaso n for Exam Type 2 diabetes mellitus with other specified complication Reason for Exam Neuropathy Performed By: #### L IPID, [id number], TSH3 wRFLX, CMP, PSAS, CBC, FE and TIBC, B12 #### [facility] [address] [place] [address] [place] Lymphocytes [#/volume] in Bl ood by Automated countOrdered By: Chaim Reeder on 04-25-2023 Lymphocytes (Bld) [#/Vol] 2.2 10*3/uL Normal 1.00-4.8 [facility] Comment on above: Order Comment: Reaso n for Exam Encounter for prostate cancer screening Performed By: #### L IPID, [id number], TSH3 wRFLX, CMP, PSAS, CBC, FE and TIBC, B12 #### [facility] [address] [place] [id number] [place] Lymphocytes/100 leukocytes i n Blood by Automated countOrdered By: Chaim Reeder on 04-25-2023 Lymphocytes/100 WBC (Bld) 28.9 % Normal . [facility] Comment on above: Order Comment: Reaso n for Exam Encounter for prostate cancer screening Performed By: #### L IPID, [id number], TSH3 wRFLX, CMP, PSAS, CBC, FE and TIBC, B12 #### [facility] [address] [place] [id number] [facility] MCH [Entitic mass] by Automa janelle countOrdered By: Chaim Reeder on 04-25-2023 MCH (RBC) [Entitic mass] 30.5 pg Normal 27.5-35.2 [facility] Comment on above: Order Comment: Reaso n for Exam Encounter for prostate cancer screening Performed By: #### L IPID, [id number], TSH3 wRFLX, CMP, PSAS, CBC, FE and TIBC, B12 #### [facility] [address] [place] [id number] [place] MCHC Auto (RBC) [Mass/Vol]Or dered By: Chaim Reeder on 04-25-2023 MCHC (RBC) [Mass/Vol] 34.7 g/dL 32.5-35.6 [facility] MCV [Entitic volume] by Auto mated countOrdered By: Chaim Reeder on 04-25-2023 MCV (RBC) [Entitic vol] 87.8 fL Normal 83.5-101 [facility] Comment on above: Order Comment: Reaso n for Exam Encounter for prostate cancer screening Performed By: #### L IPID, [id number], TSH3 wRFLX, CMP, PSAS, CBC, FE and TIBC, B12 #### [facility] [address] Neutrophils [#/volume] in Bl ood by Automated countOrdered By: Cahim Reeder on 04-25-2023 Neutrophils (Bld) [#/Vol] 4.5 10*3/uL Normal 1.8-7.7 [facility] Comment on above: Order Comment: Reaso n for Exam Encounter for prostate cancer screening Performed By: #### L IPID, [id number], TSH3 wRFLX, CMP, PSAS, CBC, FE and TIBC, B12 #### [facility] [address] [place] [address] No Panel InformationOrdered By: Chaim Reeder on 04-25-2023 Estimated GFR (CKD-EPI) > 60.0 mL/Min [facility] Creatinine Clearance (Chem N/A [facility] Nucleated erythrocytes [Pres ence] in Blood by Automated countOrdered By: Chaim Reeder on 04-25-2023 Nucleated RBC Auto Ql (Bld) 0.1 /100{WBC} 0-0.5 [facility] Platelet mean volume [Entiti c volume] in Blood by Automated countOrdered By: Chaim Reeder on 04-25-2023 Platelet mean volume (Bld) [Entitic vol] 8.6 fL Normal 6.6-10.1 [facility] Comment on above: Order Comment: Reaso n for Exam Encounter for prostate cancer screening Performed By: #### L IPID, [id number], TSH3 wRFLX, CMP, PSAS, CBC, FE and TIBC, B12 #### [facility] [address] [place] [address] [place] Platelets [#/volume] in Bloo d by Automated countOrdered By: Chaim Reeder on 04-25-2023 Platelets (Bld) [#/Vol] 172 10*3/uL Normal 150-450 [facility] Comment on above: Order Comment: Reaso n for Exam Encounter for prostate cancer screening Performed By: #### L IPID, [id number], TSH3 wRFLX, CMP, PSAS, CBC, FE and TIBC, B12 #### [facility] [address] [place] [address] [place] Potassium [Moles/volume] in Serum or PlasmaOrdered By: Chaim Reeder on 04-25-2023 Potassium [Moles/Vol] 4.3 mmol/L Normal 3.5-5.1 [facility] Comment on above: Order Comment: Reaso n for Exam Encounter for prostate cancer screening Performed By: #### L IPID, [id number], TSH3 wRFLX, CMP, PSAS, CBC, FE and TIBC, B12 #### [facility] [address] [place] [address] [place] Protein [Mass/volume] in Ser um or PlasmaOrdered By: Chaim Reeder on 04-25-2023 Protein [Mass/Vol] 6.7 g/dL Normal 6.4-8.9 [facility] Comment on above: Order Comment: Reaso n for Exam Encounter for prostate cancer screening Performed By: #### L IPID, [id number], TSH3 wRFLX, CMP, PSAS, CBC, FE and TIBC, B12 #### [facility] [address] Serum globulin measurement b y calculation (mass/volume)Ordered By: Chaim Reeder on 04-25-2023 Globulin (S) [Mass/Vol] 2.5 g/dL [facility] Comment on above: Order Comment: Reaso n for Exam Encounter for prostate cancer screening Performed By: #### L IPID, [id number], TSH3 wRFLX, CMP, PSAS, CBC, FE and TIBC, B12 #### [facility] [address] [place] [id number] [place] Serum or plasma albumin/glob ulin mass ratioOrdered By: Chaim Reeder on 04-25-2023 Albumin/Globulin [Mass ratio] 1.7 {ratio} [facility] Comment on above: Order Comment: Reaso n for Exam Encounter for prostate cancer screening Performed By: #### L IPID, [id number], TSH3 wRFLX, CMP, PSAS, CBC, FE and TIBC, B12 #### [facility] [address] Serum or plasma anion gap de terminationOrdered By: Chaim Reeder on 04-25-2023 Anion gap [Moles/Vol] 10.2 mmol/L Normal 6.0-15.0 [facility] Comment on above: Order Comment: Reaso n for Exam Encounter for prostate cancer screening Performed By: #### L IPID, [id number], TSH3 wRFLX, CMP, PSAS, CBC, FE and TIBC, B12 #### [facility] [address] Serum or plasma high density lipoprotein (HDL) cholesterol measurementOrdered By: Chaim Reeder on 04-25-2023 Cholesterol in HDL [Mass/Vol] 35 mg/dL Normal 23-92 [facility] Comment on above: HDL CHOL ATP-III CLA SSIFICATION Cardiovascular RiskHDL > or equal to 60 mg/dL LOWHDL < 40 mg/dL HIGH Order Comment: Reaso n for Exam Type 2 diabetes mellitus with other specified complication Reason for Exam Neuropathy Result Comment: HDL CHOL ATP-III CLASSIFICATION Cardiovascular Risk HDL > or equal to 60 mg/dL LOW HDL < 40 mg/dL HIGH Performed By: #### L IPID, [id number], TSH3 wRFLX, CMP, PSAS, CBC, FE and TIBC, B12 #### [facility] [address] Serum or plasma total choles terol/high density lipoprotein (HDL) cholesterol mass ratOrdered By: Chaim Reeder on 04-25-2023 Cholesterol.total/Chol esterol in HDL [Mass ratio] 5.4 {ratio} Normal <5.0 [facility] Comment on above: Order Comment: Reaso n for Exam Type 2 diabetes mellitus with other specified complication Reason for Exam Neuropathy Performed By: #### L IPID, [id number], TSH3 wRFLX, CMP, PSAS, CBC, FE and TIBC, B12 #### [facility] [address] Sodium [Moles/volume] in Ser um or PlasmaOrdered By: Chaim Reeder on 04-25-2023 Sodium [Moles/Vol] 133 mmol/L Low 136-145 [facility] Comment on above: Order Comment: Reaso n for Exam Encounter for prostate cancer screening Performed By: #### L IPID, [id number], TSH3 wRFLX, CMP, PSAS, CBC, FE and TIBC, B12 #### [facility] [address] Thyroid Stim Hormone w/Rflxo n 04-25-2023 Thyroid Stim Hormone w/Rflx 1.97 u[iU]/mL Normal 0.45-5.33 [facility] Comment on above: Order Comment: Reaso n for Exam Type 2 diabetes mellitus with other specified complication Reason for Exam Neuropathy Result Comment: PERF ORMED BY: [place] [address] PATHOLOGIST [employer] ALYSSA MOSQUEDA M.D. Performed By: #### L IPID, [id number], TSH3 wRFLX, CMP, PSAS, CBC, FE and TIBC, B12 #### [facility] [address] Thyrotropin [Units/volume] i n Serum or PlasmaOrdered By: Chaim Reeder on 04-25-2023 TSH Qn 1.97 m[IU]/L 0.45-5.33 [facility] Triglyceride [Mass/volume] i n Serum or PlasmaOrdered By: Chaim Reeder on 04-25-2023 Triglyceride [Mass/Vol] 646 mg/dL 0-149 [facility] Comment on above: If the [...] doppler BIon 04-12 US carotid doppler BI [facility] [address] Ultrasound Report Signed Patient: Gene Barahona MR#: [id number] : 1970 Acct:[id number] Age/Sex: 52 / M ADM Date: 04/25/23 Loc: Room: Type: [facility] Attending Dr: Chaim GARCIA Ordering Provider: JOSE Hillman Date of Service: 04/25/23 US/US carotid doppler BI: Left carotid stenosis Copies to: OJSE Hillman CAROTID DUPLEX INDICATION: Surveillance study for left carotid stenoses and [place] syndrome. PROCEDURE: Color-flow duplex scanning is used [...] Cyrus Carrillo MD04/25/2023 3:20 PM Dictation Location: [place] [address] Tech: Melany Beauchamp Transcribed By: CHOLO 04/25/23 1520 Dictated By: Cyrus Carrillo MD 04/25/23 1519 Signed By: 04/25/23 1520 Normal [facility] Urea nitrogen [Mass/volume] in Serum or PlasmaOrdered By: Chaim Reeder on 04-25-2023 Urea nitrogen [Mass/Vol] 22 mg/dL Normal 7-25 [facility] Comment on above: Order Comment: Reaso n for Exam Encounter for prostate cancer screening Performed By: #### L IPID, [id number], TSH3 wRFLX, CMP, PSAS, CBC, FE and TIBC, B12 #### [address] STR cardiac stress/regularon 01-24-2023 STR cardiac stress/regular [facility] [address] [place] [address] [place] [address] Cardiac Stress Test Signed Patient: Gene Barahona MR#: [id number] : 1970 Acct:[id number] Age/Sex: 52 / M ADM Date: 01/24/23 Loc: Room: Type: [facility] Attending Dr: Chaim GARCIA Copies to: Zelda Perkins MD, [facility] JOSE Hillman Ordering Provider: JOSE Hillman Date of Service: 01/24/23 STR/STR cardiac stress/regular: Diastolic heart failure, unspecified HF chronicity;Other kelley ORDERED BY: JOSE Zacarias INDICATIONS: A 52-year-old [...] Transcribed By: NTS 01/24/23 1635 Dictated By: Zelda Perkins MD, [facility] 01/24/23 1624 Signed By: 01/25/23 0923 Normal [facility] Albumin [Mass/volume] in Ser um or PlasmaOrdered By: Chaim Reeder on 06-26-2022 Albumin [Mass/Vol] 3.9 g/dL 3.2-5.5 [facility] Basophils Auto (Bld) [#/Vol] Ordered By: Chaim Reeder on 06-26-2022 Basophils (Bld) [#/Vol] 0.1 10*3/uL 0.0-0.2 [facility] Basophils/100 WBC Auto (Bld) Ordered By: Chaim Reeder on 06-26-2022 Basophils/100 WBC (Bld) 0.7 % . [facility] Cholesterol [Mass/volume] in Serum or PlasmaOrdered By: Chaim Reeder on 06-26-2022 Cholesterol [Mass/Vol] 184 mg/dL 140-200 [facility] Comment on above: Chol less than 200 m g/dl low riskChol 201-239 mg/dl borderline riskChol 240 mg/dl and greater high risk Cholesterol in LDL Calc [Mas s/Vol]Ordered By: Chaim Reeder on 06-26-2022 Cholesterol in LDL [Mass/Vol] 90 mg/dL 0-100 [facility] Comment on above: LDL ATP III CLASSIFI CATIONLDL less than 100 mg/dL OptimalLDL 100-129 mg/dL Near or above optimalLDL 130-159 mg/dL Borderline highLDL 160-189 mg/dL HighLDL greater than 189 mg/dL Very high Cholesterol in VLDL Calc [Ma ss/Vol]Ordered By: Chaim Reeder on 06-26-2022 Cholesterol in VLDL [Mass/Vol] 61 mg/dL [facility] Creatinine and Glomerular fi ltration rate.predicted panel (S/P/Bld)Ordered By: Chaim Reeder on 06-26-2022 Creatinine [Mass/Vol] 1.11 mg/dL 0.64-1.27 [facility] Eosinophils Auto (Bld) [#/Vo l]Ordered By: Chaim Reeder on 06-26-2022 Eosinophils (Bld) [#/Vol] 0.3 10*3/uL 0.0-0.45 [facility] Eosinophils/100 WBC Auto (Bl d)Ordered By: Chaim Reeder on 06-26-2022 Eosinophils/100 WBC (Bld) 3.3 % . [facility] Erythrocyte distribution wid th Auto (RBC) [Ratio]Ordered By: Chaim Reeder on 06-26-2022 Erythrocyte distribution width (RBC) [Ratio] 13.6 % 12.0-14.8 [facility] Estimated glomerular filtrat ion rate (GFR) non- AmericanOrdered By: Chaim Reeder on 06-26-2022 GFR/1.73 sq M.predicted among non-blacks MDRD (S/P/Bld) [Vol rate/Area] > 60 mL/Min [facility] Globulin Calc (S) [Mass/Vol] Ordered By: Chaim Reeder on 06-26-2022 Globulin (S) [Mass/Vol] 2.6 g/dL [facility] Hematocrit Auto (Bld) [Volum e fraction]Ordered By: Chaim Reeder on 06-26-2022 Hematocrit (Bld) [Volume fraction] 46.6 % 38.8-50.0 [facility] Hemoglobin [Mass/volume] in BloodOrdered By: Chaim Reeder on 06-26-2022 Hemoglobin (Bld) [Mass/Vol] 15.5 g/dL 13.0-17.0 [facility] Leukocytes [#/volume] correc janelle for nucleated erythrocytes in Blood by Automated counOrdered By: Chaim Reeder on 06-26-2022 WBC corrected for nucl RBC Auto (Bld) [#/Vol] 8.2 10*3/uL 4.1-10.5 [facility] Lymphocytes Auto (Bld) [#/Vo l]Ordered By: Chaim Reeder on 06-26-2022 Lymphocytes (Bld) [#/Vol] 2.4 10*3/uL 1.00-4.8 [facility] Lymphocytes/100 WBC Auto (Bl d)Ordered By: Chaim Reeder on 06-26-2022 Lymphocytes/100 WBC (Bld) 29.8 % . [facility] MCH Auto (RBC) [Entitic mass ]Ordered By: Chaim Reeder on 06-26-2022 MCH (RBC) [Entitic mass] 29.8 pg 27.5-35.2 [facility] MCHC Auto (RBC) [Mass/Vol]Or dered By: Chaim Reeder on 06-26-2022 MCHC (RBC) [Mass/Vol] 33.3 g/dL 32.5-35.6 [facility] MCV Auto (RBC) [Entitic vol] Ordered By: Chaim Reeder on 06-26-2022 MCV (RBC) [Entitic vol] 89.5 fL 83.5-101 [facility] Monocytes Auto (Bld) [#/Vol] Ordered By: Chaim Reeder on 06-26-2022 Monocytes (Bld) [#/Vol] 0.5 10*3/uL 0.0-0.8 [facility] Monocytes/100 WBC Auto (Bld) Ordered By: Chaim Reeder on 06-26-2022 Monocytes/100 WBC (Bld) 6.2 % . [facility] Neutrophils Auto (Bld) [#/Vo l]Ordered By: Chaim Reeder on 06-26-2022 Neutrophils (Bld) [#/Vol] 4.9 10*3/uL 1.8-7.7 [facility] Neutrophils/100 WBC Auto (Bl d)Ordered By: Chaim Reeder on 06-26-2022 Neutrophils/100 WBC (Bld) 60.0 % . [facility] No Panel InformationOrdered By: Chaim Reeder on 06-26-2022 Estimated GFR () > 60 mL/Min [facility] Comment on above: GFR estimated refere nce range: According to KDOQI guidelines, <60 ml/min/1.73m2 is sufficient to diagnose a patient with chronic kidney disease. Pharmacy Creatinine Clearance (Chem N/A [facility] Prostate Specific Antigen Screen 0.430 ng/mL 0.000-4.00 0 [facility] Nucleated erythrocytes [Pres ence] in Blood by Automated countOrdered By: Chaim Reeder on 06-26-2022 Nucleated RBC Auto Ql (Bld) 0.1 /100{WBC} 0-0.5 [facility] Platelet mean volume Auto (B ld) [Entitic vol]Ordered By: Chaim Reeder on 06-26-2022 Platelet mean volume (Bld) [Entitic vol] 9.4 fL 6.6-10.1 [facility] Platelets Auto (Bld) [#/Vol] Ordered By: Chaim Reeder on 06-26-2022 Platelets (Bld) [#/Vol] 133 10*3/uL 150-450 [facility] Protein [Mass/volume] in Ser um or PlasmaOrdered By: Chaim Reeder on 06-26-2022 Protein [Mass/Vol] 6.5 g/dL 6.1-7.9 [facility] RBC Auto (Bld) [#/Vol]Ordere d By: Chaim Reeder on 06-26-2022 RBC (Bld) [#/Vol] 5.21 10*6/uL 3.90-5.60 [facility] Serum or plasma alanine quinn otransferase measurement without P-5'-P (enzymatic activiOrdered By: Chaim Reeder on 06-26-2022 ALT No additional P-5'-P [Catalytic activity/Vol] 34 U/L 10-60 [facility] Serum or plasma albumin/glob ulin mass ratioOrdered By: Chaim Reeder on 06-26-2022 Albumin/Globulin [Mass ratio] 1.5 {ratio} [facility] Serum or plasma alkaline malik sphatase measurement (enzymatic activity/volume)Ordered By: Chaim Reeder on 06-26-2022 ALP [Catalytic activity/Vol] 81 U/L 32-92 [facility] Serum or plasma anion gap de terminationOrdered By: Chaim Reeder on 06-26-2022 Anion gap [Moles/Vol] 11.6 mmol/L 6.0-15.0 [facility] Serum or plasma aspartate am inotransferase measurement (enzymatic activity/volume)Ordered By: Chaim Reeder on 06-26-2022 AST [Catalytic activity/Vol] 27 U/L 10-42 [facility] Serum or plasma calcium fermín urement (mass/volume)Ordered By: Chaim Reeder on 06-26-2022 Calcium [Mass/Vol] 9.1 mg/dL 8.2-10.2 [facility] Serum or plasma chloride jeffy surement (moles/volume)Ordered By: Chaim Reeder on 06-26-2022 Chloride [Moles/Vol] 104 mmol/L 95-[address] [facility] Serum or plasma glucose fermín urement (mass/volume)Ordered By: Chaim Reeder on 06-26-2022 Glucose [Mass/Vol] 113 mg/dL 70-100 [facility] Comment on above: ADA recommended refe rence rangeRandom Glucose Reference Range is dependent on time and content of last meal. Glucose of more than 200 mg/dL in a nonstressed, ambulatory subject supports the diagnosis of Diabetes Mellitus. Serum or plasma high density lipoprotein (HDL) cholesterol measurementOrdered By: Chaim Reeder on 06-26-2022 Cholesterol in HDL [Mass/Vol] 32 mg/dL 29-71 [facility] Comment on above: HDL CHOL ATP-III CLA SSIFICATION Cardiovascular RiskHDL > or equal to 60 mg/dL LOWHDL < 40 mg/dL HIGH Serum or plasma potassium me asurement (moles/volume)Ordered By: Chaim Reeder on 06-26-2022 Potassium [Moles/Vol] 4.4 mmol/L 3.5-5.1 [facility] Serum or plasma sodium measu rement (moles/volume)Ordered By: Chaim Reeder on 06-26-2022 Sodium [Moles/Vol] 138 mmol/L 136-146 [facility] Serum or plasma total biliru bin measurement (mass/volume)Ordered By: Chaim Reeder on 06-26-2022 Bilirubin [Mass/Vol] 0.6 mg/dL 0.3-1.[address] [facility] Serum or plasma total carbon dioxide measurement (moles/volume)Ordered By: Chaim Reeder on 06-26-2022 CO2 [Moles/Vol] 26.8 mmol/L 22.0-30.0 [facility] Serum or plasma total choles terol/high density lipoprotein (HDL) cholesterol mass ratOrdered By: Chaim Reeder on 06-26-2022 Cholesterol.total/Chol esterol in HDL [Mass ratio] 5.8 {ratio} <5.0 [facility] Serum or plasma urea nitroge n measurement (mass/volume)Ordered By: Chaim Reeder on 06-26-2022 Urea nitrogen [Mass/Vol] 19 mg/dL 9-23 [facility] TSH DL <= 0.005 mIU/L QnOrde red By: Chaim Reeder on 06-26-2022 TSH Qn 1.79 m[IU]/L 0.45-5.33 [facility] Triglyceride [Mass/volume] i n Serum or PlasmaOrdered By: Chaim Reeder on 06-26-2022 Triglyceride [Mass/Vol] 309 mg/dL 35-149 [facility] Comment on above: TRIG ATP III CLASSIF ICATIONTRIG less than 150 mg/dL NormalTRIG 150-199 mg/dL Borderline highTRIG 200-500 mg/dL High TRIG greater than 500 mg/dL Very highStandard traceable to the Center for Disease Conrtrol and Prevention (CDC) test method. WBC Auto (Bld) [#/Vol]Ordere d By: Chaim Reeder on 06-26-2022 WBC (Bld) [#/Vol] 8.2 10*3/uL 4.1-10.5 [facility] Albumin [Mass/volume] in Ser um or PlasmaOrdered By: Mara Page on 06-06-2022 Albumin [Mass/Vol] 4.0 g/dL 3.2-5.5 [facility] Basophils Auto (Bld) [#/Vol] Ordered By: Mara Page on 06-06-2022 Basophils (Bld) [#/Vol] 0.0 10*3/uL 0.0-0.2 [facility] Basophils/100 WBC Auto (Bld) Ordered By: Mara Page on 06-06-2022 Basophils/100 WBC (Bld) 0.6 % . [facility] Creatinine and Glomerular fi ltration rate.predicted panel (S/P/Bld)Ordered By: Mara Page on 06-06-2022 Creatinine [Mass/Vol] 1.35 mg/dL 0.64-1.27 [facility] Eosinophils Auto (Bld) [#/Vo l]Ordered By: Mara Page on 06-06-2022 Eosinophils (Bld) [#/Vol] 0.3 10*3/uL 0.0-0.45 [facility] Eosinophils/100 WBC Auto (Bl d)Ordered By: Mara Page on 06-06-2022 Eosinophils/100 WBC (Bld) 3.6 % . [facility] Erythrocyte distribution wid th Auto (RBC) [Ratio]Ordered By: Mara Page on 06-06-2022 Erythrocyte distribution width (RBC) [Ratio] 14.0 % 12.0-14.8 [facility] Estimated glomerular filtrat ion rate (GFR) non- AmericanOrdered By: Mara Page on 06-06-2022 GFR/1.73 sq M.predicted among non-blacks MDRD (S/P/Bld) [Vol rate/Area] 55 mL/Min [facility] Globulin Calc (S) [Mass/Vol] Ordered By: Mara Page on 06-06-2022 Globulin (S) [Mass/Vol] 2.7 g/dL [facility] Hematocrit Auto (Bld) [Volum e fraction]Ordered By: Mara Page on 06-06-2022 Hematocrit (Bld) [Volume fraction] 45.3 % 38.8-50.0 [facility] Hemoglobin [Mass/volume] in BloodOrdered By: Mara Page on 06-06-2022 Hemoglobin (Bld) [Mass/Vol] 15.2 g/dL 13.0-17.0 [facility] Leukocytes [#/volume] correc janelle for nucleated erythrocytes in Blood by Automated counOrdered By: Mara Page on 06-06-2022 WBC corrected for nucl RBC Auto (Bld) [#/Vol] 8.2 10*3/uL 4.1-10.5 [facility] Lymphocytes Auto (Bld) [#/Vo l]Ordered By: Mara Page on 06-06-2022 Lymphocytes (Bld) [#/Vol] 2.6 10*3/uL 1.00-4.8 [facility] Lymphocytes/100 WBC Auto (Bl d)Ordered By: Mara Page on 06-06-2022 Lymphocytes/100 WBC (Bld) 31.4 % . [facility] MCH Auto (RBC) [Entitic mass ]Ordered By: Mara Page on 06-06-2022 MCH (RBC) [Entitic mass] 29.8 pg 27.5-35.2 [facility] MCHC Auto (RBC) [Mass/Vol]Or dered By: Mara Page on 06-06-2022 MCHC (RBC) [Mass/Vol] 33.4 g/dL 32.5-35.6 [facility] MCV Auto (RBC) [Entitic vol] Ordered By: Mara Page on 06-06-2022 MCV (RBC) [Entitic vol] 89.3 fL 83.5-101 [facility] Monocytes Auto (Bld) [#/Vol] Ordered By: Mara Page on 06-06-2022 Monocytes (Bld) [#/Vol] 0.6 10*3/uL 0.0-0.8 [facility] Monocytes/100 WBC Auto (Bld) Ordered By: Mara Page on 06-06-2022 Monocytes/100 WBC (Bld) 7.9 % . [facility] Neutrophils Auto (Bld) [#/Vo l]Ordered By: Mara Page on 06-06-2022 Neutrophils (Bld) [#/Vol] 4.6 10*3/uL 1.8-7.7 [facility] Neutrophils/100 WBC Auto (Bl d)Ordered By: Mara Page on 06-06-2022 Neutrophils/100 WBC (Bld) 56.5 % . [facility] No Panel InformationOrdered By: Mara Page on 06-06-2022 Estimated GFR () > 60 mL/Min [facility] Comment on above: GFR estimated refere nce range: According to KDOQI guidelines, <60 ml/min/1.73m2 is sufficient to diagnose a patient with chronic kidney disease. Pharmacy Creatinine Clearance (Chem 74.07 [facility] Nucleated erythrocytes [Pres ence] in Blood by Automated countOrdered By: Mara Page on 06-06-2022 Nucleated RBC Auto Ql (Bld) 0.1 /100{WBC} 0-0.5 [facility] Platelet mean volume Auto (B ld) [Entitic vol]Ordered By: Mara Page on 06-06-2022 Platelet mean volume (Bld) [Entitic vol] 8.4 fL 6.6-10.1 [facility] Platelets Auto (Bld) [#/Vol] Ordered By: Mara Page on 06-06-2022 Platelets (Bld) [#/Vol] 174 10*3/uL 150-450 [facility] Protein [Mass/volume] in Ser um or PlasmaOrdered By: Mara Page on 06-06-2022 Protein [Mass/Vol] 6.7 g/dL 6.1-7.9 [facility] RBC Auto (Bld) [#/Vol]Ordere d By: Mara Page on 06-06-2022 RBC (Bld) [#/Vol] 5.08 10*6/uL 3.90-5.60 [facility] Serum or plasma alanine quinn otransferase measurement without P-5'-P (enzymatic activiOrdered By: Mara Page on 06-06-2022 ALT No additional P-5'-P [Catalytic activity/Vol] 40 U/L 10-60 [facility] Serum or plasma albumin/glob ulin mass ratioOrdered By: Mara Page on 06-06-2022 Albumin/Globulin [Mass ratio] 1.5 {ratio} [facility] Serum or plasma alkaline malik sphatase measurement (enzymatic activity/volume)Ordered By: Mara Page on 06-06-2022 ALP [Catalytic activity/Vol] 82 U/L 32-92 [facility] Serum or plasma anion gap de terminationOrdered By: Mara Page on 06-06-2022 Anion gap [Moles/Vol] 14.0 mmol/L 6.0-15.0 [facility] Serum or plasma aspartate am inotransferase measurement (enzymatic activity/volume)Ordered By: Mara Page on 06-06-2022 AST [Catalytic activity/Vol] 36 U/L 10-42 [facility] Serum or plasma calcium fermín urement (mass/volume)Ordered By: Mara Page on 06-06-2022 Calcium [Mass/Vol] 10.0 mg/dL 8.2-10.2 [facility] Serum or plasma carcinoembry onic antigen measurement (mass/volume)Ordered By: Mara Page on 06-06-2022 Carcinoembryonic Ag [Mass/Vol] 4.8 ng/mL 0.0-3.0 [facility] Serum or plasma chloride jeffy surement (moles/volume)Ordered By: Mara Page on 06-06-2022 Chloride [Moles/Vol] 100 mmol/L 95-[address] [facility] Serum or plasma glucose fermín urement (mass/volume)Ordered By: Mara Page on 06-06-2022 Glucose [Mass/Vol] 204 mg/dL 70-100 [facility] Comment on above: ADA recommended refe rence rangeRandom Glucose Reference Range is dependent on time and content of last meal. Glucose of more than 200 mg/dL in a nonstressed, ambulatory subject supports the diagnosis of Diabetes Mellitus. Serum or plasma potassium me asurement (moles/volume)Ordered By: Mara Page on 06-06-2022 Potassium [Moles/Vol] 4.5 mmol/L 3.5-5.1 [facility] Serum or plasma sodium measu rement (moles/volume)Ordered By: Mara Kaylee on 06-06-2022 Sodium [Moles/Vol] 137 mmol/L 136-146 [facility] Serum or plasma total biliru bin measurement (mass/volume)Ordered By: Mara Page on 06-06-2022 Bilirubin [Mass/Vol] 0.6 mg/dL 0.3-1.[address] [facility] Serum or plasma total carbon dioxide measurement (moles/volume)Ordered By: Mara Kaylee on 06-06-2022 CO2 [Moles/Vol] 27.5 mmol/L 22.0-30.0 [facility] Serum or plasma urea nitroge n measurement (mass/volume)Ordered By: Mara Kaylee on 06-06-2022 Urea nitrogen [Mass/Vol] 21 mg/dL 9-23 [facility] WBC Auto (Bld) [#/Vol]Ordere d By: Mara Kaylee on 06-06-2022 WBC (Bld) [#/Vol] 8.2 10*3/uL 4.1-10.5 [facility] COVID CepheidOrdered By: Ramin Anne on 05-14-2022 SARS-CoV-2 (COVID-19) Ab IA Ql Negative Negative [facility] Comment on above: This is a duplicate [employer] Xpert Xpress CoV-2/Flu/RSV Plus RNA by RT-PCR result to be used for statistical tracking purpose only. SARS-CoV-2 (COVID-19) RNA JULIETTE+probe Ql (Unsp spec) [facility] Glucose Glucometer (BldC) [M ass/Vol]Ordered By: Devon Damico on 02-28-2022 Glucose [Mass/Vol] 203 mg/dL [facility] Comment on above: Random Glucose Refer ence Range is dependent on time and content of last meal. Glucose of more than 200 mg/dL in a nonstressed, ambulatory subject supports the diagnosis of Diabetes Mellitus. COVID-19 Positive/NegativeOr dered By: Devon Damico on 02-26-2022 SARS-CoV-2 (COVID-19) N gene JULIETTE+probe Ql (Resp) Negative Negative [facility] Comment on above: Testing for SARS-CoV -2 by RT-PCRThis test was developed and its performance characteristics determined by [employer] ([employer]) and validated at the [facility]. This test has not been [...] erythrocytes count in urine sediment (number/area)Ordered By: Chaim Reeder on 02-14-2022 RBC Auto (Urine sed) [#/Area] None seen [HPF] 0-4 [facility] Automated leukocytes count i n urine sediment (number/area)Ordered By: Chaim Reeder on 02-14-2022 WBC Auto (Urine sed) [#/Area] None seen [HPF] 0-4 [facility] Basophils Auto (Bld) [#/Vol] Ordered By: Chaim Reeder on 02-14-2022 Basophils (Bld) [#/Vol] 0.1 10*3/uL 0.0-0.2 [facility] Basophils/100 WBC Auto (Bld) Ordered By: Chaim Reeder on 02-14-2022 Basophils/100 WBC (Bld) 0.6 % . [facility] Bilirubin Test strip Ql (U)O rdered By: Chaim Reeder on 02-14-2022 Bilirubin Ql (U) Negative Negative [facility] Blood hemoglobin measurement (mass/volume)Ordered By: Chaim Reeder on 02-14-2022 Hemoglobin (Bld) [Mass/Vol] 15.5 g/dL 13.0-17.0 [facility] Blood leukocytes automated c ount (number/volume)Ordered By: Chaim Reeder on 02-14-2022 WBC (Bld) [#/Vol] 9.6 10*3/uL 4.5-11.0 [facility] Body fluid albumin measureme nt (mass/volume)Ordered By: Chaim Reeder on 02-14-2022 Albumin (Body fld) [Mass/Vol] 4.0 g/dL 3.2-5.5 [facility] Color Auto (U)Ordered By: Shaniqua Reeder on 02-14-2022 Color (U) Yellow Yellow [facility] Creatinine and Glomerular fi ltration rate.predicted panel (S/P/Bld)Ordered By: Chaim Reeder on 02-14-2022 Creatinine [Mass/Vol] 1.28 mg/dL 0.64-1.27 [facility] Eosinophils Auto (Bld) [#/Vo l]Ordered By: Chaim Reeder on 02-14-2022 Eosinophils (Bld) [#/Vol] 0.1 10*3/uL 0.0-0.45 [facility] Eosinophils/100 WBC Auto (Bl d)Ordered By: Chaim Reeder on 02-14-2022 Eosinophils/100 WBC (Bld) 1.3 % . [facility] Erythrocyte distribution wid th Auto (RBC) [Ratio]Ordered By: Chaim Reeder on 02-14-2022 Erythrocyte distribution width (RBC) [Ratio] 14.0 % 12.0-14.8 [facility] Estimated glomerular filtrat ion rate (GFR) non- AmericanOrdered By: Chaim Reeder on 02-14-2022 GFR/1.73 sq M.predicted among non-blacks MDRD (S/P/Bld) [Vol rate/Area] 59 mL/Min [facility] Globulin Calc (S) [Mass/Vol] Ordered By: Chaim Reeder on 02-14-2022 Globulin (S) [Mass/Vol] 3.1 g/dL [facility] Hematocrit Auto (Bld) [Volum e fraction]Ordered By: Chaim Reeder on 02-14-2022 Hematocrit (Bld) [Volume fraction] 46.3 % 38.8-50.0 [facility] Ketones Auto test strip (U) [Mass/Vol]Ordered By: Chaim Reeder on 02-14-2022 Ketones (U) [Mass/Vol] Negative Negative Fi [facility] Laboratory - Hematology and Cell countsOrdered By: Chaim Reeder on 02-14-2022 Nucleated RBC/100 WBC (Bld) [Ratio] 0.1 % 0-0.5 [facility] Laboratory - UrinalysisOrder ed By: Chaim Reeder on 02-14-2022 Hyaline casts LM Ql (Urine sed) None seen [LPF] 0-8 [facility] Lymphocytes Auto (Bld) [#/Vo l]Ordered By: Chaim Reeder on 02-14-2022 Lymphocytes (Bld) [#/Vol] 2.5 10*3/uL 1.00-4.8 [facility] Lymphocytes/100 WBC Auto (Bl d)Ordered By: Chaim Reeder on 02-14-2022 Lymphocytes/100 WBC (Bld) 26.2 % . [facility] MCH Auto (RBC) [Entitic mass ]Ordered By: Chaim Reeder on 02-14-2022 MCH (RBC) [Entitic mass] 29.7 pg 27.5-35.2 [facility] MCHC Auto (RBC) [Mass/Vol]Or dered By: Chaim Reeder on 02-14-2022 MCHC (RBC) [Mass/Vol] 33.6 g/dL 32.5-35.6 [facility] MCV Auto (RBC) [Entitic vol] Ordered By: Chaim Reeder on 02-14-2022 MCV (RBC) [Entitic vol] 88.6 fL 83.5-101 [facility] Monocytes Auto (Bld) [#/Vol] Ordered By: Chaim Reeder on 02-14-2022 Monocytes (Bld) [#/Vol] 0.6 10*3/uL 0.0-0.8 [facility] Monocytes/100 WBC Auto (Bld) Ordered By: Chaim Reeder on 02-14-2022 Monocytes/100 WBC (Bld) 6.5 % . [facility] Neutrophils Auto (Bld) [#/Vo l]Ordered By: Chaim Reeder on 02-14-2022 Neutrophils (Bld) [#/Vol] 6.3 10*3/uL 1.8-7.7 [facility] Neutrophils/100 WBC Auto (Bl d)Ordered By: Chaim Reeder on 02-14-2022 Neutrophils/100 WBC (Bld) 65.4 % . [facility] Nitrite Test strip Ql (U)Ord ered By: Chaim Reeder on 02-14-2022 Nitrite Ql (U) Negative Negative [facility] No Panel InformationOrdered By: Chaim Reeder on 02-14-2022 Estimated GFR () > 60 mL/Min [facility] Comment on above: GFR estimated refere nce range: According to KDOQI guidelines, <60 ml/min/1.73m2 is sufficient to diagnose a patient with chronic kidney disease. Pharmacy Creatinine Clearance (Chem N/A [facility] Platelet mean volume Auto (B ld) [Entitic vol]Ordered By: Chaim Reeder on 02-14-2022 Platelet mean volume (Bld) [Entitic vol] 8.8 fL 6.6-10.1 [facility] Platelets Auto (Bld) [#/Vol] Ordered By: Chaim Reeder on 02-14-2022 Platelets (Bld) [#/Vol] 185 10*3/uL 150-450 [facility] Protein Auto test strip (U) [Mass/Vol]Ordered By: Chaim Reeder on 02-14-2022 Protein (U) [Mass/Vol] 30 mg/dL Negative Fi [facility] Protein [Mass/volume] in Ser um or PlasmaOrdered By: Chaim Reeder on 02-14-2022 Protein [Mass/Vol] 7.1 g/dL 6.1-7.9 [facility] RBC Auto (Bld) [#/Vol]Ordere d By: Chaim Reeder on 02-14-2022 RBC (Bld) [#/Vol] 5.22 10*6/uL 3.90-5.60 [facility] Serum or plasma alanine quinn otransferase measurement without P-5'-P (enzymatic activiOrdered By: Chaim Reeder on 02-14-2022 ALT No additional P-5'-P [Catalytic activity/Vol] 32 U/L [facility] Serum or plasma albumin/glob ulin mass ratioOrdered By: Chaim Reeder on 02-14-2022 Albumin/Globulin [Mass ratio] 1.3 {ratio} [facility] Serum or plasma alkaline malik sphatase measurement (enzymatic activity/volume)Ordered By: Chaim Reeder on 02-14-2022 ALP [Catalytic activity/Vol] 85 U/L 32-92 [facility] Serum or plasma anion gap de terminationOrdered By: Chaim Reeder on 02-14-2022 Anion gap [Moles/Vol] 14.5 mmol/L 6.0-15.0 [facility] Serum or plasma aspartate am inotransferase measurement (enzymatic activity/volume)Ordered By: Chaim Reeder on 02-14-2022 AST [Catalytic activity/Vol] 23 U/L [facility] Serum or plasma calcium fermín urement (mass/volume)Ordered By: Chaim Reeder on 02-14-2022 Calcium [Mass/Vol] 9.4 mg/dL 8.2-10.2 [facility] Serum or plasma chloride jeffy surement (moles/volume)Ordered By: Chaim Reeder on 02-14-2022 Chloride [Moles/Vol] 99 mmol/L 95-[address] [facility] Serum or plasma glucose fermín urement (mass/volume)Ordered By: Chaim Reeder on 02-14-2022 Glucose [Mass/Vol] 216 mg/dL 70-100 [facility] Comment on above: ADA recommended refe rence rangeRandom Glucose Reference Range is dependent on time and content of last meal. Glucose of more than 200 mg/dL in a nonstressed, ambulatory subject supports the diagnosis of Diabetes Mellitus. Serum or plasma potassium me asurement (moles/volume)Ordered By: Chaim Reeder on 02-14-2022 Potassium [Moles/Vol] 4.5 mmol/L 3.5-5.1 [facility] Serum or plasma sodium measu rement (moles/volume)Ordered By: Chaim Reeder on 02-14-2022 Sodium [Moles/Vol] 135 mmol/L 136-146 [facility] Serum or plasma total biliru bin measurement (mass/volume)Ordered By: Chaim Reeder on 02-14-2022 Bilirubin [Mass/Vol] 0.6 mg/dL 0.3-1.[address] [facility] Serum or plasma total carbon dioxide measurement (moles/volume)Ordered By: Chaim Reeder on 02-14-2022 CO2 [Moles/Vol] 26.0 mmol/L 22.0-30.0 [facility] Serum or plasma urea nitroge n measurement (mass/volume)Ordered By: Chaim Reeder on 02-14-2022 Urea nitrogen [Mass/Vol] 21 mg/dL 9-23 [facility] Specific gravity Auto test s trip (U) [Rel density]Ordered By: Chaim Reeder on 02-14-2022 Specific gravity (U) [Rel density] 1.027 1.001-1.03 0 [facility] Squamous epithelial cells de tection in urine sediment by light microscopyOrdered By: Chaim Reeder on 02-14-2022 Epithelial cells.squamous LM Ql (Urine sed) None seen [HPF] 0-2 [facility] TSH DL <= 0.005 mIU/L QnOrde red By: Chaim Reeder on 02-14-2022 TSH Qn 2.11 m[IU]/L 0.45-5.33 [facility] Urine bacteria detection by automated methodOrdered By: Chaim Reeder on 02-14-2022 Bacteria Auto Ql (U) None seen None Seen [facility] Urine clarity by refractomet ry automatedOrdered By: Chaim Reeder on 02-14-2022 Clarity Refractometry automated (U) Clear Clear [facility] Urine glucose measurement by automated test strip (mass/volume)Ordered By: Chaim Reeder on 02-14-2022 Glucose Auto test strip (U) [Mass/Vol] >=1000 mg/dL Normal [facility] Urine hemoglobin detection b y automated test stripOrdered By: Chaim Reeder on 02-14-2022 Hemoglobin Auto test strip Ql (U) Negative Negative [facility] Urine leukocyte esterase det ection by automated test stripOrdered By: Chaim Reeder on 02-14-2022 Leukocyte esterase Auto test strip Ql (U) Negative Negative [facility] Urobilinogen Auto test strip (U) [Mass/Vol]Ordered By: Chaim Reeder on 02-14-2022 Urobilinogen (U) [Mass/Vol] Normal mg/dL Normal [facility] pH Auto test strip (U)Ordere d By: Chaim Reeder on 02-14-2022 pH (U) 5.5 [pH] 5.0-9.0 [facility] Activated partial thrombopla stin time (aPTT) in platelet poor plasma by coagulation aOrdered By: Mohit Carlos on 12-27-2021 aPTT Coag (PPP) [Time] 33.8 s 25.1-36.5 [facility] Automated erythrocytes count in urine sediment (number/area)Ordered By: Mohit Carlos on 12-27-2021 RBC Auto (Urine sed) [#/Area] 0-1 [HPF] 0-4 [facility] Automated leukocytes count i n urine sediment (number/area)Ordered By: Mohit Carlos on 12-27-2021 WBC Auto (Urine sed) [#/Area] 0-1 [HPF] 0-4 [facility] Basophils Auto (Bld) [#/Vol] Ordered By: Mohit Carlos on 12-27-2021 Basophils (Bld) [#/Vol] 0.1 10*3/uL 0.0-0.2 [facility] Basophils/100 WBC Auto (Bld) Ordered By: Mohit Carlos on 12-27-2021 Basophils/100 WBC (Bld) 1.1 % . [facility] Bilirubin Test strip Ql (U)O rdered By: Mohit Carlos on 12-27-2021 Bilirubin Ql (U) Negative Negative [facility] Blood hemoglobin measurement (mass/volume)Ordered By: Mohit Carlos on 12-27-2021 Hemoglobin (Bld) [Mass/Vol] 15.7 g/dL 13.0-17.0 [facility] Blood leukocytes automated c ount (number/volume)Ordered By: Mohit Carlos on 12-27-2021 WBC (Bld) [#/Vol] 10.7 10*3/uL 4.5-11.0 [facility] Body fluid albumin measureme nt (mass/volume)Ordered By: Mohit Carlos on 12-27-2021 Albumin (Body fld) [Mass/Vol] 4.2 g/dL 3.2-5.5 [facility] Color Auto (U)Ordered By: Arnol Carlos on 12-27-2021 Color (U) Yellow Yellow [facility] Creatinine and Glomerular fi ltration rate.predicted panel (S/P/Bld)Ordered By: Mohit Carlos on 12-27-2021 Creatinine [Mass/Vol] 1.50 mg/dL 0.64-1.27 [facility] Direct bilirubin measurement Ordered By: Mohit Carlos on 12-27-2021 Bilirubin.direct [Mass/Vol] mg/dL 0.0-0.4 [facility] Eosinophils Auto (Bld) [#/Vo l]Ordered By: Mohit Carlos on 12-27-2021 Eosinophils (Bld) [#/Vol] 0.0 10*3/uL 0.0-0.45 [facility] Eosinophils/100 WBC Auto (Bl d)Ordered By: Mohit Carlos on 12-27-2021 Eosinophils/100 WBC (Bld) 0.4 % . [facility] Erythrocyte distribution wid th Auto (RBC) [Ratio]Ordered By: Mohit Carlos on 12-27-2021 Erythrocyte distribution width (RBC) [Ratio] 13.8 % 12.0-14.8 [facility] Estimated glomerular filtrat ion rate (GFR) non- AmericanOrdered By: Mohit Carlos on 12-27-2021 GFR/1.73 sq M.predicted among non-blacks MDRD (S/P/Bld) [Vol rate/Area] 49 mL/Min [facility] Globulin Calc (S) [Mass/Vol] Ordered By: Mohit Carlos on 12-27-2021 Globulin (S) [Mass/Vol] 3.8 g/dL [facility] Hematocrit Auto (Bld) [Volum e fraction]Ordered By: Mohit Carlos on 12-27-2021 Hematocrit (Bld) [Volume fraction] 46.2 % 38.8-50.0 [facility] Ketones Auto test strip (U) [Mass/Vol]Ordered By: Mohit Carlos on 12-27-2021 Ketones (U) [Mass/Vol] Negative Negative Fi [facility] Laboratory - Chemistry and C hemistry - challengeOrdered By: Mohit Carlos on 12-27-2021 Lipase [Catalytic activity/Vol] 530.0 U/L 22-51 [facility] Laboratory - CoagulationOrde red By: Mohit Carlos on 12-27-2021 PT Coag (PPP) [Time] 10.7 s 9.0-12.[address] [facility] Laboratory - Hematology and Cell countsOrdered By: Mohit Carlos on 12-27-2021 Nucleated RBC/100 WBC (Bld) [Ratio] 0.1 % 0-0.5 [facility] Laboratory - UrinalysisOrder ed By: Mohit Carlos on 12-27-2021 Hyaline casts LM Ql (Urine sed) None seen [LPF] 0-8 [facility] Lymphocytes Auto (Bld) [#/Vo l]Ordered By: Mohit Carlos on 12-27-2021 Lymphocytes (Bld) [#/Vol] 3.0 10*3/uL 1.00-4.8 [facility] Lymphocytes/100 WBC Auto (Bl d)Ordered By: Mohit Carlos on 12-27-2021 Lymphocytes/100 WBC (Bld) 27.6 % . [facility] MCH Auto (RBC) [Entitic mass ]Ordered By: Mohit Carlos on 12-27-2021 MCH (RBC) [Entitic mass] 30.2 pg 27.5-35.2 [facility] MCHC Auto (RBC) [Mass/Vol]Or dered By: Mohit Carlos on 12-27-2021 MCHC (RBC) [Mass/Vol] 34.0 g/dL 32.5-35.6 [facility] MCV Auto (RBC) [Entitic vol] Ordered By: Mohit Carlos on 12-27-2021 MCV (RBC) [Entitic vol] 88.7 fL 83.5-101 [facility] Monocytes Auto (Bld) [#/Vol] Ordered By: Mohit Carlos on 12-27-2021 Monocytes (Bld) [#/Vol] 0.6 10*3/uL 0.0-0.8 [facility] Monocytes/100 WBC Auto (Bld) Ordered By: Mohit Carlos on 12-27-2021 Monocytes/100 WBC (Bld) 6.0 % . [facility] Neutrophils Auto (Bld) [#/Vo l]Ordered By: Mohit Carlos on 12-27-2021 Neutrophils (Bld) [#/Vol] 7.0 10*3/uL 1.8-7.7 [facility] Neutrophils/100 WBC Auto (Bl d)Ordered By: Mohit Carlos on 12-27-2021 Neutrophils/100 WBC (Bld) 64.9 % . [facility] Nitrite Test strip Ql (U)Ord ered By: Mohit Carlos on 12-27-2021 Nitrite Ql (U) Negative Negative [facility] No Panel InformationOrdered By: Mohit Carlos on 12-27-2021 Estimated GFR () 59 mL/Min [facility] Comment on above: GFR estimated refere nce range: According to KDOQI guidelines, <60 ml/min/1.73m2 is sufficient to diagnose a patient with chronic kidney disease. Pharmacy Creatinine Clearance (Chem 65.92 [facility] Platelet mean volume Auto (B ld) [Entitic vol]Ordered By: Mohit Carlos on 12-27-2021 Platelet mean volume (Bld) [Entitic vol] 8.3 fL 6.6-10.1 [facility] Platelet poor plasma interna tional normalized ratio (INR) by coagulation assay (relatOrdered By: Mohit Carlos on 12-27-2021 INR Coag (PPP) [Relative time] 1.0 {INR} [facility] Comment on above: INR Therapeutic [...] 12-27-2021 Platelets (Bld) [#/Vol] 186 10*3/uL 150-450 [facility] Protein Auto test strip (U) [Mass/Vol]Ordered By: Mohit Carlos on 12-27-2021 Protein (U) [Mass/Vol] Trace mg/dL Negative [facility] Protein [Mass/volume] in Ser um or PlasmaOrdered By: Mohit Carlos on 12-27-2021 Protein [Mass/Vol] 8.0 g/dL 6.1-7.9 [facility] RBC Auto (Bld) [#/Vol]Ordere d By: Mohit Carlos on 12-27-2021 RBC (Bld) [#/Vol] 5.21 10*6/uL 3.90-5.60 [facility] Serum or plasma alanine quinn otransferase measurement without P-5'-P (enzymatic activiOrdered By: Mohit Carlos on 12-27-2021 ALT No additional P-5'-P [Catalytic activity/Vol] 36 U/L 10-60 [facility] Serum or plasma albumin/glob ulin mass ratioOrdered By: Mohit Carlos on 12-27-2021 Albumin/Globulin [Mass ratio] 1.1 {ratio} [facility] Serum or plasma alkaline malik sphatase measurement (enzymatic activity/volume)Ordered By: Mohit Carlos on 12-27-2021 ALP [Catalytic activity/Vol] 85 U/L 32-92 [facility] Serum or plasma aspartate am inotransferase measurement (enzymatic activity/volume)Ordered By: Mohit Carlos on 12-27-2021 AST [Catalytic activity/Vol] 26 U/L 10-42 [facility] Serum or plasma calcium fermín urement (mass/volume)Ordered By: Mohit Carlos on 12-27-2021 Calcium [Mass/Vol] 9.8 mg/dL 8.2-10.2 [facility] Serum or plasma chloride jeffy surement (moles/volume)Ordered By: Mohit Cralos on 12-27-2021 Chloride [Moles/Vol] 97 mmol/L 95-[address] [facility] Serum or plasma glucose fermín urement (mass/volume)Ordered By: Mohit Carlos on 12-27-2021 Glucose [Mass/Vol] 172 mg/dL 70-100 [facility] Comment on above: ADA recommended [...] Mohit Carlos on 12-27-2021 Bilirubin.indirect [Mass/Vol] TNP [facility] Comment on above: Test not performed Serum or plasma potassium me asurement (moles/volume)Ordered By: Mohit Carlos on 12-27-2021 Potassium [Moles/Vol] 3.7 mmol/L 3.5-5.1 [facility] Serum or plasma sodium measu rement (moles/volume)Ordered By: Mohit Carlos on 12-27-2021 Sodium [Moles/Vol] 134 mmol/L 136-146 [facility] Serum or plasma total biliru bin measurement (mass/volume)Ordered By: Mohit Carlos on 12-27-2021 Bilirubin [Mass/Vol] 0.6 mg/dL 0.3-1.[address] [facility] Serum or plasma total carbon dioxide measurement (moles/volume)Ordered By: Mohit Carlos on 12-27-2021 CO2 [Moles/Vol] 26.0 mmol/L 22.0-30.0 [facility] Serum or plasma urea nitroge n measurement (mass/volume)Ordered By: Mohit Carlos on 12-27-2021 Urea nitrogen [Mass/Vol] 22 mg/dL 9- [facility] Specific gravity Auto test s trip (U) [Rel density]Ordered By: Mohit Carlos on 12-27-2021 Specific gravity (U) [Rel density] 1.024 1.001-1.03 0 [facility] Squamous epithelial cells de tection in urine sediment by light microscopyOrdered By: Mohit Carlos on 12-27-2021 Epithelial cells.squamous LM Ql (Urine sed) None seen [HPF] 0-2 [facility] Urine bacteria detection by automated methodOrdered By: Mohit Carlos on 12-27-2021 Bacteria Auto Ql (U) None seen None Seen [facility] Urine clarity by refractomet ry automatedOrdered By: Mohit Carlos on 12-27-2021 Clarity Refractometry automated (U) Clear Clear [facility] Urine glucose measurement by automated test strip (mass/volume)Ordered By: Mohit Carlos on 12-27-2021 Glucose Auto test strip (U) [Mass/Vol] >=1000 mg/dL Normal [facility] Urine hemoglobin detection b y automated test stripOrdered By: Mohit Carlos on 12-27-2021 Hemoglobin Auto test strip Ql (U) Negative Negative [facility] Urine leukocyte esterase det ection by automated test stripOrdered By: Mohit Carlos on 12-27-2021 Leukocyte esterase Auto test strip Ql (U) Negative Negative [facility] Urobilinogen Auto test strip (U) [Mass/Vol]Ordered By: Mohit Carlos on 12-27-2021 Urobilinogen (U) [Mass/Vol] Normal mg/dL Normal [facility] pH Auto test strip (U)Ordere d By: Mohit Carlos on 12-27-2021 pH (U) 7.0 [pH] 5.0-9.0 [facility] Albumin [Mass/volume] in Ser um or PlasmaOrdered By: Godwin Coker on 12-15-2021 Albumin [Mass/Vol] 4.0 g/dL 3.2-5.5 [facility] Automated erythrocytes count in urine sediment (number/area)Ordered By: Godwin Coker on 12-15-2021 RBC Auto (Urine sed) [#/Area] 0-1 [HPF] 0-4 [facility] Automated leukocytes count i n urine sediment (number/area)Ordered By: Godwin Coker on 12-15-2021 WBC Auto (Urine sed) [#/Area] None seen [HPF] 0-4 [facility] Basophils Auto (Bld) [#/Vol] Ordered By: Godwin Coker on 12-15-2021 Basophils (Bld) [#/Vol] 0.1 10*3/uL 0.0-0.2 [facility] Basophils/100 WBC Auto (Bld) Ordered By: Godwin Coker on 12-15-2021 Basophils/100 WBC (Bld) 0.8 % . [facility] Bilirubin Test strip Ql (U)O rdered By: Godwin Coker on 12-15-2021 Bilirubin Ql (U) Negative Negative [facility] Blood hemoglobin measurement (mass/volume)Ordered By: Godwin Coker on 12-15-2021 Hemoglobin (Bld) [Mass/Vol] 15.3 g/dL 13.0-17.0 [facility] Blood leukocytes automated c ount (number/volume)Ordered By: Godwin Coker on 12-15-2021 WBC (Bld) [#/Vol] 8.4 10*3/uL 4.5-11.0 [facility] Color Auto (U)Ordered By: Ap Coker on 12-15-2021 Color (U) Yellow Yellow [facility] Creatinine and Glomerular fi ltration rate.predicted panel (S/P/Bld)Ordered By: Godwin Coker on 12-15-2021 Creatinine [Mass/Vol] 1.30 mg/dL 0.64-1.27 [facility] Eosinophils Auto (Bld) [#/Vo l]Ordered By: Godwin Coker on 12-15-2021 Eosinophils (Bld) [#/Vol] 0.0 10*3/uL 0.0-0.45 [facility] Eosinophils/100 WBC Auto (Bl d)Ordered By: Godwin Coker on 12-15-2021 Eosinophils/100 WBC (Bld) 0.4 % . [facility] Erythrocyte distribution wid th Auto (RBC) [Ratio]Ordered By: Godwin Coker on 12-15-2021 Erythrocyte distribution width (RBC) [Ratio] 13.4 % 12.0-14.8 [facility] Estimated glomerular filtrat ion rate (GFR) non- AmericanOrdered By: Godwin Coker on 12-15-2021 GFR/1.73 sq M.predicted among non-blacks MDRD (S/P/Bld) [Vol rate/Area] 58 mL/Min [facility] Globulin Calc (S) [Mass/Vol] Ordered By: Godwin Coker on 12-15-2021 Globulin (S) [Mass/Vol] 3.4 g/dL [facility] Hematocrit Auto (Bld) [Volum e fraction]Ordered By: Godwin Coker on 12-15-2021 Hematocrit (Bld) [Volume fraction] 45.2 % 38.8-50.0 [facility] Ketones Auto test strip (U) [Mass/Vol]Ordered By: Godwin Coker on 12-15-2021 Ketones (U) [Mass/Vol] Negative Negative [facility] - Chemistry and C hemistry - challengeOrdered By: Godwin Coker on 12-15-2021 Lipase [Catalytic activity/Vol] 220.0 U/L 22-51 [facility] Laboratory - Hematology and Cell countsOrdered By: Godwin Coker on 12-15-2021 Nucleated RBC/100 WBC (Bld) [Ratio] 0.1 % 0-0.5 [facility] Laboratory - UrinalysisOrder ed By: Godwin Coker on 12-15-2021 Hyaline casts LM Ql (Urine sed) None seen [LPF] 0-8 [facility] Lymphocytes Auto (Bld) [#/Vo l]Ordered By: Godwin Coker on 12-15-2021 Lymphocytes (Bld) [#/Vol] 2.1 10*3/uL 1.00-4.8 [facility] Lymphocytes/100 WBC Auto (Bl d)Ordered By: Godwin Coker on 12-15-2021 Lymphocytes/100 WBC (Bld) 24.7 % . [facility] MCH Auto (RBC) [Entitic mass ]Ordered By: Godwin Coker on 12-15-2021 MCH (RBC) [Entitic mass] 29.8 pg 27.5-35.2 [facility] MCHC Auto (RBC) [Mass/Vol]Or dered By: Godwin Coker on 12-15-2021 MCHC (RBC) [Mass/Vol] 33.8 g/dL 32.5-35.6 [facility] MCV Auto (RBC) [Entitic vol] Ordered By: Godwin Coker on 12-15-2021 MCV (RBC) [Entitic vol] 88.3 fL 83.5-101 [facility] Monocytes Auto (Bld) [#/Vol] Ordered By: Godwin Coker on 12-15-2021 Monocytes (Bld) [#/Vol] 0.5 10*3/uL 0.0-0.8 [facility] Monocytes/100 WBC Auto (Bld) Ordered By: Godwin Coker on 12-15-2021 Monocytes/100 WBC (Bld) 6.4 % . [facility] Neutrophils Auto (Bld) [#/Vo l]Ordered By: Godwin Coker on 12-15-2021 Neutrophils (Bld) [#/Vol] 5.7 10*3/uL 1.8-7.7 [facility] Neutrophils/100 WBC Auto (Bl d)Ordered By: Godwin Coker on 12-15-2021 Neutrophils/100 WBC (Bld) 67.7 % . [facility] Nitrite Test strip Ql (U)Ord ered By: Godwin Coker on 12-15-2021 Nitrite Ql (U) Negative Negative [facility] No Panel InformationOrdered By: Godwin Coker on 12-15-2021 Estimated GFR () > 60 mL/Min [facility] Comment on above: GFR estimated refere nce range: According to KDOQI guidelines, <60 ml/min/1.73m2 is sufficient to diagnose a patient with chronic kidney disease. Pharmacy Creatinine Clearance (Chem 69.99 [facility] Platelet mean volume Auto (B ld) [Entitic vol]Ordered By: Godwin Coker on 12-15-2021 Platelet mean volume (Bld) [Entitic vol] 8.3 fL 6.6-10.1 [facility] Platelets Auto (Bld) [#/Vol] Ordered By: Godwin Coker on 12-15-2021 Platelets (Bld) [#/Vol] 184 10*3/uL 150-450 [facility] Protein Auto test strip (U) [Mass/Vol]Ordered By: Godwin Coker on 12-15-2021 Protein (U) [Mass/Vol] 30 mg/dL Negative [facility] Protein [Mass/volume] in Ser um or PlasmaOrdered By: Godwin Coker on 12-15-2021 Protein [Mass/Vol] 7.4 g/dL 6.1-7.9 [facility] RBC Auto (Bld) [#/Vol]Ordere d By: Godwin Coker on 12-15-2021 RBC (Bld) [#/Vol] 5.12 10*6/uL 3.90-5.60 [facility] Serum or plasma alanine quinn otransferase measurement without P-5'-P (enzymatic activiOrdered By: Godwin Coker on 12-15-2021 ALT No additional P-5'-P [Catalytic activity/Vol] 35 U/L 10-60 [facility] Serum or plasma albumin/glob ulin mass ratioOrdered By: Godwin Coker on 12-15-2021 Albumin/Globulin [Mass ratio] 1.2 {ratio} [facility] Serum or plasma alkaline malik sphatase measurement (enzymatic activity/volume)Ordered By: Godwin Coker on 12-15-2021 ALP [Catalytic activity/Vol] 82 U/L 32-92 [facility] Serum or plasma aspartate am inotransferase measurement (enzymatic activity/volume)Ordered By: Godwin Coker on 12-15-2021 AST [Catalytic activity/Vol] 28 U/L 10-42 [facility] Serum or plasma calcium fermín urement (mass/volume)Ordered By: Godwin Coker on 12-15-2021 Calcium [Mass/Vol] 9.8 mg/dL 8.2-10.2 [facility] Serum or plasma chloride jeffy surement (moles/volume)Ordered By: Godwin Coker on 12-15-2021 Chloride [Moles/Vol] 105 mmol/L 95-[address] [facility] Serum or plasma glucose fermín urement (mass/volume)Ordered By: Godwin Coker on 12-15-2021 Glucose [Mass/Vol] 204 mg/dL 70-100 [facility] Comment on above: ADA recommended [...] on 12-15-2021 Potassium [Moles/Vol] 4.0 mmol/L 3.5-5.1 [facility] Serum or plasma sodium measu rement (moles/volume)Ordered By: Godwin Coker on 12-15-2021 Sodium [Moles/Vol] 137 mmol/L 136-146 [facility] Serum or plasma total biliru bin measurement (mass/volume)Ordered By: Godwin Coker on 12-15-2021 Bilirubin [Mass/Vol] 0.5 mg/dL 0.3-1.[address] [facility] Serum or plasma total carbon dioxide measurement (moles/volume)Ordered By: Godwin Coker on 12-15-2021 CO2 [Moles/Vol] 23.7 mmol/L 22.0-30.0 [facility] Serum or plasma urea nitroge n measurement (mass/volume)Ordered By: Godwin Coker on 12-15-2021 Urea nitrogen [Mass/Vol] 22 mg/dL 9- [facility] Specific gravity Auto test s trip (U) [Rel density]Ordered By: Godwin Coker on 12-15-2021 Specific gravity (U) [Rel density] 1.031 1.001-1.03 0 [facility] Squamous epithelial cells de tection in urine sediment by light microscopyOrdered By: Godwin Coker on 12-15-2021 Epithelial cells.squamous LM Ql (Urine sed) None seen [HPF] 0-2 [facility] Urine bacteria detection by automated methodOrdered By: Godwin Coker on 12-15-2021 Bacteria Auto Ql (U) None seen None Seen [facility] Urine clarity by refractomet ry automatedOrdered By: Godwin Coker on 12-15-2021 Clarity Refractometry automated (U) Clear Clear [facility] Urine glucose measurement by automated test strip (mass/volume)Ordered By: Godwin Coker on 12-15-2021 Glucose Auto test strip (U) [Mass/Vol] >=1000 mg/dL Normal [facility] Urine hemoglobin detection b y automated test stripOrdered By: Godwin Coker on 12-15-2021 Hemoglobin Auto test strip Ql (U) Negative Negative [facility] Urine lactic acid measuremen tOrdered By: Godwin Coker on 12-15-2021 Lactate (U) [Moles/Vol] 1.1 mmol/L 0.5-2.2 [facility] Urine leukocyte esterase det ection by automated test stripOrdered By: Godwin Coker on 12-15-2021 Leukocyte esterase Auto test strip Ql (U) Negative Negative [facility] Urobilinogen Auto test strip (U) [Mass/Vol]Ordered By: Godwin Coker on 12-15-2021 Urobilinogen (U) [Mass/Vol] Normal mg/dL Normal [facility] pH Auto test strip (U)Ordere d By: Godwin Coker on 12-15-2021 pH (U) 7.0 [pH] 5.0-9.0 [facility] COVID-19 SOFIAOrdered By: Blayne Anne on 11-28-2021 SARS-CoV+SARS-CoV-2 (COVID-19) Ag IA.rapid Ql (Resp) Negative Negative [facility] Comment on above: This is a duplicate Deena SARS Antigen (HEYDI) result to be used for statistical tracking purpose only. No Panel InformationOrdered By: Tae Anne on 11-28-2021 SARS Antigen (LFIA) [facility] Laboratory - Hematology and Cell countsOrdered By: Fredy Brito on 06-05-2021 Nucleated RBC/100 WBC (Bld) [Ratio] 0.0 % 0-0.5 [facility] Vital Signs Date Time Vital Sign Value Performing Clinician Facility 03-04-2024 12:02-0400 Hourly Rounding [facility] 03-04-2024 12:02-0400 Promise to Return [facility] 03-04-2024 11:40-0400 Hourly Rounding [facility] 03-04-2024 11:40-0400 Promise to Return [facility] 03-04-2024 11:14-0400 Heart rate 74 /min [facility] 03-04-2024 11:14-0400 SaO2% (BldA) [Mass fraction] 96 % [facility] 03-04-2024 11:13-0400 Diastolic blood pressure 67 mm[Hg] [facility] 03-04-2024 11:13-0400 Mean blood pressure 83 mm[Hg] [facility] 03-04-2024 11:13-0400 Systolic blood pressure 115 mm[Hg] [facility] 03-04-2024 10:01-0400 Hourly Rounding [facility] 03-04-2024 10:01-0400 Promise to Return [facility] 03-04-2024 08:15-0400 Diastolic blood pressure 70 mm[Hg] [facility] 03-04-2024 08:15-0400 Heart rate 72 /min [facility] 03-04-2024 08:15-0400 Systolic blood pressure 122 mm[Hg] [facility] 03-04-2024 07:00-0400 Body temperature 97.52 [degF] [facility] 03-04-2024 07:00-0400 Heart rate 82 /min [facility] 03-04-2024 07:00-0400 SaO2% (BldA) [Mass fraction] 100 % [facility] 03-04-2024 05:20-0400 Body temperature 97.7 [degF] [facility] 03-04-2024 05:20-0400 Heart rate 77 /min [facility] 03-04-2024 05:20-0400 Mean blood pressure 105 mm[Hg] [facility] 03-04-2024 05:20-0400 Respiratory rate 16 /min [facility] 03-04-2024 05:20-0400 SaO2% (BldA) [Mass fraction] 97 % [facility] 03-04-2024 00:20-0400 Body temperature 97.88 [degF] [facility] 03-04-2024 00:20-0400 Respiratory rate 16 /min [facility] 03-03-2024 21:00-0400 gluc 340 mg/dL [facility] 03-03-2024 19:14-0400 Body temperature 98.06 [degF] [facility] 03-03-2024 19:14-0400 Mean blood pressure 101 mm[Hg] [facility] 03-03-2024 17:33-0400 Mean blood pressure 109 mm[Hg] [facility] 03-03-2024 17:32-0400 Body temperature 97.88 [degF] [facility] 03-03-2024 17:30-0400 Heart rate 84 /min [facility] 03-03-2024 17:30-0400 Respiratory rate 14 /min [facility] 03-03-2024 17:20-0400 Mean blood pressure 119 mm[Hg] [facility] 03-03-2024 17:20-0400 Respiratory rate 20 /min [facility] 03-03-2024 16:00-0400 Mean blood pressure 104 mm[Hg] [facility] 03-03-2024 13:44-0400 Heart rate 95 /min [facility] 03-03-2024 13:44-0400 Respiratory rate 16 /min [facility] 12-25-2023 18:32-0400 Diastolic blood pressure 90 mm[Hg] [facility] 12-25-2023 18:32-0400 Heart rate 81 /min [facility] 12-25-2023 18:32-0400 Mean blood pressure 100 mm[Hg] [facility] 12-25-2023 18:32-0400 Respiratory rate 19 /min [facility] 12-25-2023 18:32-0400 SaO2% (BldA) [Mass fraction] 98 % [facility] 12-25-2023 18:32-0400 Systolic blood pressure 120 mm[Hg] [facility] 12-25-2023 17:52-0400 Hourly Rounding [facility] 12-25-2023 17:30-0400 Diastolic blood pressure 85 mm[Hg] [facility] 12-25-2023 17:30-0400 Heart rate 75 /min [facility] 12-25-2023 17:30-0400 Mean blood pressure 98 mm[Hg] [facility] 12-25-2023 17:30-0400 Respiratory rate 20 /min [facility] 12-25-2023 17:30-0400 SaO2% (BldA) [Mass fraction] 98 % [facility] 12-25-2023 17:30-0400 Systolic blood pressure 123 mm[Hg] [facility] 12-25-2023 16:37-0400 Diastolic blood pressure 84 mm[Hg] [facility] 12-25-2023 16:37-0400 Heart rate 81 /min [facility] 12-25-2023 16:37-0400 Hourly Rounding [facility] 12-25-2023 16:37-0400 Mean blood pressure 102 mm[Hg] [facility] 12-25-2023 16:37-0400 Respiratory rate 18 /min [facility] 12-25-2023 16:37-0400 SaO2% (BldA) [Mass fraction] 99 % [facility] 12-25-2023 16:37-0400 Systolic blood pressure 138 mm[Hg] [facility] 12-25-2023 14:19-0400 Body temperature 97.88 [degF] [facility] 12-25-2023 14:19-0400 Heart rate 93 /min [facility] 12-25-2023 14:19-0400 Respiratory rate 18 /min [facility] 12-23-2023 08:00-0400 Body temperature 98.7 [degF] [employer]aim [employer] Work Phone: [facility] 12-23-2023 08:00-0400 Diastolic blood pressure 93 mm[Hg] [employer] Chaim Spasic Work Phone: [facility] 12-23-2023 08:00-0400 Heart rate 77 /min [employer] Chaim Spasic Work Phone: [facility] 12-23-2023 08:00-0400 Respiratory rate 20 /min [employer] Chaim Spasic Work Phone: [facility] 12-23-2023 08:00-0400 SaO2% (BldA) [Mass fraction] 97 % [employer] Chaim Spasic Work Phone: [facility] 12-23-2023 08:00-0400 Systolic blood pressure 167 mm[Hg] [employer] Chaim Spasic Work Phone: [facility] 12-23-2023 04:43-0400 Body weight 90.3 kg [employer] Chaim Spasic Work Phone: [facility] 12-22-2023 20:40-0400 Body height 177.8 cm [employer] Chaim Spasic Work Phone: [facility] 12-22-2023 19:16-0400 Body temperature 97.8 [degF] [employer] Chaim Spasic Work Phone: [facility] 12-22-2023 19:16-0400 Diastolic blood pressure 93 mm[Hg] [employer] Chaim Spasic Work Phone: [facility] 12-22-2023 19:16-0400 Heart rate 76 /min [employer] Ch[employer] Spasic Work Phone: [facility] 12-22-2023 19:16-0400 Respiratory rate 18 /min [employer] Spasic Work Phone: [facility] 12-22-2023 19:16-0400 SaO2% (BldA) [Mass fraction] 99 % [employer] Chaim Spasic Work Phone: [facility] 12-22-2023 19:16-0400 Systolic blood pressure 146 mm[Hg] [employer] Chaim Spasic Work Phone: [facility] 12-22-2023 12:23-0400 Body height 177.8 cm [employer] Chaim Spasic Work Phone: [facility] 12-22-2023 12:23-0400 Body weight 90.7 kg [employer] Chaim Spasic Work Phone: [facility] 12-20-2023 17:28-0400 Diastolic blood pressure 81 mm[Hg] [employer] Chaim Spasic Work Phone: [facility] 12-20-2023 17:28-0400 Heart rate 83 /min [employer] Spasic Work Phone: [facility] 12-20-2023 17:28-0400 Respiratory rate 18 /min [employer] Sp[employer] Work Phone: [facility] 12-20-2023 17:28-0400 SaO2% (BldA) [Mass fraction] 97 % [employer] Sp[employer] Work Phone: [facility] 12-20-2023 17:28-0400 Systolic blood pressure 119 mm[Hg] [employer] Sp[employer] Work Phone: [facility] 12-20-2023 13:30-0400 Body height 177.8 cm [employer] Chaim Spasic Work Phone: [facility] 12-20-2023 13:30-0400 Body temperature 97.9 [degF] [employer] Chaim Spasic Work Phone: [facility] 12-20-2023 13:30-0400 Body weight 97.4 kg [employer] Chaim Spasic Work Phone: [facility] 12-19-2023 05:33-0400 Diastolic blood pressure 96 mm[Hg] [employer] Ch[employer] Sp[employer] Work Phone: [facility] 12-19-2023 05:33-0400 Systolic blood pressure 158 mm[Hg] [employer] Chaim Sp[employer] Work Phone: [facility] 12-19-2023 05:02-0400 Heart rate 76 /min [employer] Chaim Sp[employer] Work Phone: [facility] 12-19-2023 05:02-0400 Respiratory rate 16 /min [employer] Spasic Work Phone: [facility] 12-19-2023 05:02-0400 SaO2% (BldA) [Mass fraction] 99 % [employer] Sp[employer] Work Phone: [facility] 12-19-2023 00:06-0400 Body height 177.8 cm [employer] Sp[employer] Work Phone: [facility] 12-19-2023 00:06-0400 Body temperature 97.7 [degF] [employer] Chaim Spasic Work Phone: [facility] 12-19-2023 00:06-0400 Body weight 87.55 kg [employer] Chaim Spasic Work Phone: [facility] 07-01-2022 22:35-0500 Body height 180.[address] [facility] Work Phone: [facility] 07-01-2022 22:35-0500 Body temperature 99 [degF] Services [facility] Work Phone: [facility] 07-01-2022 22:35-0500 Body weight 90.71 kg [facility] Work Phone: [facility] 07-01-2022 22:35-0500 Diastolic blood pressure 93 mm[Hg] [facility] Work Phone: [facility] 07-01-2022 22:35-0500 Heart rate 101 /min [facility] Work Phone: [facility] 07-01-2022 22:35-0500 Respiratory rate 22 /min [facility] Work Phone: [facility] 07-01-2022 22:35-0500 SaO2% (BldA) [Mass fraction] 97 % [facility] Work Phone: [facility] 07-01-2022 22:35-0500 Systolic blood pressure 171 mm[Hg] [facility] Work Phone: [facility] 06-08-2022 11:18-0500 Body height 180.34 cm [facility] Work Phone: [facility] 06-08-2022 11:18-0500 Body temperature 98.1 [degF] [facility] Work Phone: [facility] 06-08-2022 11:18-0500 Body weight 94.7 kg [facility] Work Phone: [facility] 06-08-2022 11:18-0500 Diastolic blood pressure 83 mm[Hg] [facility] Work Phone: [facility] 06-08-2022 11:18-0500 Heart rate 99 /min [facility] Work Phone: [facility] 06-08-2022 11:18-0500 Respiratory rate 18 /min [facility] Work Phone: [facility] 06-08-2022 11:18-0500 SaO2% (BldA) [Mass fraction] 98 % [facility] Work Phone: [facility] 06-08-2022 11:18-0500 Systolic blood pressure 124 mm[Hg] [facility] Work Phone: [facility] 05-14-2022 21:36-0500 Body height 180.34 cm [facility] Work Phone: [facility] 05-14-2022 21:36-0500 Body temperature 99 [degF] [facility] Work Phone: [facility] 05-14-2022 21:36-0500 Body weight 90.8 kg [facility] Work Phone: [facility] 05-14-2022 21:36-0500 Diastolic blood pressure 93 mm[Hg] [facility] Work Phone: [facility] 05-14-2022 21:36-0500 Heart rate 93 /min [facility] Work Phone: [facility] 05-14-2022 21:36-0500 Respiratory rate 16 /min [facility] Work Phone: [facility] 05-14-2022 21:36-0500 SaO2% (BldA) [Mass fraction] 96 % [facility] Work Phone: [facility] 05-14-2022 21:36-0500 Systolic blood pressure 141 mm[Hg] [facility] Work Phone: [facility] 03-09-2022 12:34-0400 Body height 180.34 cm [facility] Work Phone: [facility] 03-09-2022 12:34-0400 Body temperature 97.4 [degF] [facility] Work Phone: [facility] 03-09-2022 12:34-0400 Body weight 90.45 kg [facility] Work Phone: [facility] 03-09-2022 12:34-0400 Diastolic blood pressure 88 mm[Hg] [facility] Work Phone: [facility] 03-09-2022 12:34-0400 Heart rate 86 /min [facility] Work Phone: [facility] 03-09-2022 12:34-0400 Respiratory rate 18 /min [facility] Work Phone: [facility] 03-09-2022 12:34-0400 SaO2% (BldA) [Mass fraction] 100 % [facility] Work Phone: [facility] 03-09-2022 12:34-0400 Systolic blood pressure 137 mm[Hg] [facility] Work Phone: [facility] 03-07-2022 13:37-0400 Body height 180.34 cm [facility] Work Phone: [facility] 03-07-2022 13:37-0400 Body temperature 98.3 [degF] [facility] Work Phone: [facility] 03-07-2022 13:37-0400 Body weight 90.71 kg [facility] Work Phone: [facility] 03-07-2022 13:37-0400 Diastolic blood pressure 96 mm[Hg] [facility] Work Phone: [facility] 03-07-2022 13:37-0400 Heart rate 89 /min [facility] Work Phone: [facility] 03-07-2022 13:37-0400 Respiratory rate 18 /min [facility] Work Phone: [facility] 03-07-2022 13:37-0400 SaO2% (BldA) [Mass fraction] 100 % [facility] Work Phone: [facility] 03-07-2022 13:37-0400 Systolic blood pressure 160 mm[Hg] [facility] Work Phone: [facility] 02-28-2022 10:22-0400 Diastolic blood pressure 91 mm[Hg] [facility] Work Phone: [facility] 02-28-2022 10:22-0400 Heart rate 85 /min [facility] Work Phone: [facility] 02-28-2022 10:22-0400 Respiratory rate 16 /min [facility] Work Phone: [facility] 02-28-2022 10:22-0400 SaO2% (BldA) [Mass fraction] 99 % [facility] Work Phone: [facility] 02-28-2022 10:22-0400 Systolic blood pressure 138 mm[Hg] [facility] [facility] 02-28-2022 08:15-0400 Body height 180.34 cm [facility] Work Phone: [facility] 02-28-2022 08:15-0400 Body temperature 97.6 [degF] [facility] Work Phone: [facility] 02-28-2022 08:15-0400 Body weight 90.71 kg [facility] Work Phone: [facility] 02-27-2022 13:21-0400 Body height 180.34 cm [facility] Work Phone: [facility] 02-27-2022 13:21-0400 Body temperature 97.6 [degF] [facility] Work Phone: [facility] 02-27-2022 13:21-0400 Body weight 89.6 kg [facility] Work Phone: [facility] 02-27-2022 13:21-0400 Diastolic blood pressure 88 mm[Hg] [facility] Work Phone: [facility] 02-27-2022 13:21-0400 Heart rate 100 /min [facility] Work Phone: [facility] 02-27-2022 13:21-0400 Respiratory rate 20 /min [facility] Work Phone: [facility] 02-27-2022 13:21-0400 SaO2% (BldA) [Mass fraction] 100 % [facility] Work Phone: [facility] 02-27-2022 13:21-0400 Systolic blood pressure 130 mm[Hg] [facility] Work Phone: [facility] 12-27-2021 02:28-0400 Diastolic blood pressure 99 mm[Hg] [facility] Work Phone: [facility] 12-27-2021 02:28-0400 Heart rate 97 /min [facility] Work Phone: [facility] 12-27-2021 02:28-0400 Respiratory rate 18 /min [facility] Work Phone: [facility] 12-27-2021 02:28-0400 SaO2% (BldA) [Mass fraction] 100 % [facility] Work Phone: [facility] 12-27-2021 02:28-0400 Systolic blood pressure 150 mm[Hg] [facility] Work Phone: [facility] 12-26-2021 23:35-0400 Body height 180.34 cm [facility] Work Phone: [facility] 12-26-2021 23:35-0400 Body temperature 98.7 [degF] [facility] Work Phone: [facility] 12-26-2021 23:35-0400 Body weight 91.62 kg [facility] Work Phone: [facility] 12-15-2021 14:39-0400 Body temperature 97.6 [degF] [facility] Work Phone: [facility] 12-15-2021 14:39-0400 Diastolic blood pressure 82 mm[Hg] [facility] Work Phone: [facility] 12-15-2021 14:39-0400 Heart rate 84 /min [facility] Work Phone: [facility] 12-15-2021 14:39-0400 Respiratory rate 16 /min [facility] Work Phone: [facility] 12-15-2021 14:39-0400 SaO2% (BldA) [Mass fraction] 100 % [facility] Work Phone: [facility] 12-15-2021 14:39-0400 Systolic blood pressure 154 mm[Hg] [facility] Work Phone: [facility] 12-15-2021 13:27-0400 Body height 180.34 cm [facility] Work Phone: [facility] 12-15-2021 13:27-0400 Body weight 87.9 kg [facility] Work Phone: [facility] 11-28-2021 18:01-0400 Heart rate 90 /min [facility] Work Phone: [facility] 11-28-2021 17:45-0400 Body height 180.34 cm [facility] Work Phone: [facility] 11-28-2021 17:45-0400 Body mass index (BMI) [Ratio] 28.3 kg/m2 [facility] Work Phone: [facility] 11-28-2021 17:45-0400 Body temperature 98.2 [degF] [facility] Work Phone: [facility] 11-28-2021 17:45-0400 Body weight 92.15 kg [facility] Work Phone: [facility] 11-28-2021 17:45-0400 Diastolic blood pressure 83 mm[Hg] [facility] Work Phone: [facility] 11-28-2021 17:45-0400 Respiratory rate 18 /min [facility] Work Phone: [facility] 11-28-2021 17:45-0400 SaO2% (BldA) [Mass fraction] 97 % [facility] Work Phone: [facility] 11-28-2021 17:45-0400 Systolic blood pressure 128 mm[Hg] Services [facility] Work Phone: [facility] Encounters Encounter Date Encounter Type Care Provider Facility Start: 03-03-2024 End: 03-04-2024 ambulatory Nitesh Garcia [place]: 03-03-2024 End: 03-04-2024 Observation Lorena HARDY [facility] Start: 12-25-2023 End: 12-25-2023 Emergency department patient visit Kevin Marte Tad [facility] Start: 12-24-2023 End: 12-24-2023 ambulatory NON STAFF [facility] Work Phone: Start: 12-24-2023 End: 12-24-2023 Departed Referred [employer] Chaim Spasic Work Phone: [facility] Services Start: 12-22-2023 End: 12-23-2023 ambulatory Chaim E Spasic Facility:[facility] Start: 12-22-2023 End: 12-23-2023 Evaluation and management of inpatient [employer]TING [employer]C Chaim Spasic Work Phone: [facility] [place] [facility] Work Phone: Start: 12-20-2023 End: 12-20-2023 Emergency department patient visit [employer]TING [employer] Chaim Spasic Work Phone: [facility]Emergency Room Work Phone: Start: 12-18-2023 End: 12-19-2023 Emergency department patient visit NETTING [employer]C Chaim Spasic Work Phone: [facility] Work Phone: Start: 10-17-2023 End: 10-17-2023 ambulatory Chaim E Spasic [facility] Work Phone: Start: 10-17-2023 End: 10-17-2023 Departed Referred [employer] Chaim Reeder Work Phone: [facility] Start: 07-18-2023 End: 07-18-2023 Emergency department patient visit Clem Gomes Facility:[facility] Start: 07-16-2023 End: 07-16-2023 ambulatory Chaim Baltazarc Facility:[facility] Start: 04-25-2023 End: 04-25-2023 Patient encounter procedure [facility] Work Phone: [facility] [place] Work Phone: Start: 04-25-2023 End: 04-25-2023 ambulatory [facility] Work Phone: [facility] Work Phone: Start: 01-24-2023 ambulatory Mourhaf Traboulssi Faci lity:[id number] Start: 01-24-2023 End: 01-24-2023 Patient encounter procedure [facility] Work Phone: [facility]Electrodiagnostic [facility] Work Phone: Start: 01-24-2023 End: 01-24-2023 ambulatory [facility] Work Phone: [facility] Work Phone: Start: 12-31-2022 ambulatory Mourhaf Traboulssi Faci lity:[id number] Start: 12-31-2022 End: 12-31-2022 ambulatory [facility] Work Phone: [facility] Work Phone: Start: 12-31-2022 End: 12-31-2022 Patient encounter procedure [facility] Work Phone: [facility]Electro[facility] Work Phone: Start: 07-01-2022 End: 07-02-2022 Emergency department patient visit [facility] Work Phone: [facility] Work Phone: Start: 06-26-2022 End: 06-26-2022 ambulatory [facility] Work Phone: [facility] Work Phone: Start: 06-26-2022 End: 06-26-2022 Departed Referred [facility] Work Phone: [facility] Start: 06-08-2022 End: 06-08-2022 ambulatory [facility] Work Phone: [facility] Work Phone: Start: 06-08-2022 End: 06-08-2022 Registered Recurring [facility] Work Phone: [facility] Work Phone: Start: 05-14-2022 End: 05-14-2022 Emergency department patient visit [facility] Work Phone: [facility] Work Phone: Start: 03-09-2022 End: 03-09-2022 Emergency department patient visit [facility] Work Phone: [facility] Start: 03-07-2022 End: 03-07-2022 Emergency department patient visit [facility] Work Phone: [facility] Start: 02-28-2022 End: 02-28-2022 Admission to same day surgery center [facility] Work Phone: [facility] Start: 02-28-2022 End: 02-28-2022 ambulatory [facility] Work Phone: [facility] Work Phone: Start: 02-27-2022 End: 02-27-2022 Emergency department patient visit [facility] Work Phone: [facility]Emergency [facility] Start: 02-26-2022 End: 02-26-2022 ambulatory Services [email or web address] Work Phone: [facility] Work Phone: Start: 02-26-2022 End: 02-26-2022 Patient encounter procedure [facility] [employer] Phone: [facility]-Pre-Surgical Testing Start: 02-14-2022 End: 02-14-2022 ambulatory Services [email or web address] Work Phone: [facility] Work Phone: Start: 02-14-2022 End: 02-14-2022 Patient encounter procedure [facility] [employer] Phone: [facility]-Electrodiagnostic s Start: 12-26-2021 End: 12-27-2021 Emergency department patient visit [facility] [employer] Phone: [facility]-Emergency Room Start: 12-15-2021 End: 12-15-2021 Emergency department patient visit [facility] [employer] Phone: [facility]-Emergency Room Start: 12-14-2021 End: 12-14-2021 Patient encounter procedure [facility] [employer] Phone: [facility]-CT Scan [facility] [place] Start: 11-28-2021 End: 11-28-2021 Emergency department patient visit [facility] [employer] Phone: [facility]Emergency Room Procedures Date Procedure Procedure Detail Performing Clinician Start: 12-22-2023 Computed tomography of abdomen and pelvis with contrast [employer]TING WE[employer]ERYessy Reeder Work Phone: Start: 12-19-2023 CT of abdomen and pelvis without contrast [employer]TING WE[employer]ERYessy Baltazarc Work Phone: Start: 04-25-2023 Doppler ultrasonography of bilateral carotid arteries [facility] [employer] Phone: Start: 06-06-2022 CT of abdomen and pelvis without contrast [facility] [employer] Phone: Start: 01-25-2023 CT of chest without contrast Services [employer] Phone: Start: 05-14-2022 Plain chest X-ray [facility] [employer] Phone: Start: 05-14-2022 SARS-CoV-2, Influenza & RSV (PCR) Servic es [employer] Phone: Start: 02-28-2022 Esophagogastroduodenoscopy Services [facility] [employer] Work Phone: Start: 12-27-2021 Computed tomography of abdomen and pelvis with contrast [facility] [employer] Phone: Start: 12-15-2021 CT of abdomen and pelvis without contrast [facility] [employer] Phone: Start: 12-14-2021 CT of abdomen and pelvis without contrast [facility] [employer] Phone: Start: 11-28-2021 Plain chest X-ray [facility] [employer] Phone: Start: 06-05-2021 CT chest wo con [facility] [employer] Phone: Start: 06-05-2021 CT of abdomen and pelvis without contrast [facility] [employer] Phone: SARS Antigen (LFIA) [facility] [employer] Phone: Screening for occult blood in feces [facility] [employer] Phone: Plan of Treatment Date Care Activity Detail Author Start: 12-22-2023 Referral to technical information specialist [facility] Start: 12-22-2023 [facility] Start: 12-22-2023 Hospital admission [facility] Start: 12-19-2023 CT Abdomen and Pelvis WO contrast [facility] Start: 12-19-2023 CT of abdomen and pelvis without contrast CT abdomen pelvis wo con [facility] Start: 05-14-2022 Plain chest X-ray XR chest 1V portable [facility] Start: 05-14-2022 XR Chest Single view [facility] Start: 02-28-2022 [facility] Start: 12-27-2021 Computed tomography of abdomen and pelvis with contrast CT abdomen pelvis w con [facility] Start: 12-26-2021 End: 12-27-2021 Emergency department patient visit Departed Emergency [facility]Emergency Room Hepatitis A virus an tibody, IgM type [facility] Hepatitis B core ant ibody measurement, IgM type [facility] Hepatitis B virus morse rface Ag [Presence] in Serum or Plasma by Immunoassay [facility] Hepatitis C virus Ig G Ab [Presence] in Serum or Plasma by Immunoassay [facility] Hepatitis C virus RN A [log units/volume] (viral load) in Serum or Plasma by JULIETTE with probe detection [facility] Hepatitis C virus RN A [Units/volume] (viral load) in Serum or Plasma by JULIETTE with probe detection [facility] Patient Education [facility] Work Phone: Patient referral [facility] Work Phone: Immunizations Immunization Date Immunization Notes Care Provider Fa cility NEGATED: Highlighted row has not occurred!05-09-2020 influenza, injectable, quadrivalent, preservative free Services [facility] Work Phone: [facility] Payers Date Payer Category Payer Medicaid [id number] 2023 Self-pay [id number] 1970 Unknown [id number] 2.. [id number] 1970 Unknown [id number] 2.. [id number] 1970 Unknown [id number] 2.16.8 [id number] 1970 Unknown [id number] 2.16.8 [id number] Medicaid [facility] [id number] Unknown [facility] [id number] Unknown Maria R BC/BS [id number] Unknown [id number] 2.16.8 [id number] Unknown [id number] 2.16.8 [id number] Unknown [id number] 2.16.8 [id number] Unknown [id number] 2.16.8 [id number] Unknown [id number] 2.16.8 [id number] Unknown [id number] 2.16.8 [id number] Unknown [id number] 2.16.8 [id number] Unknown [id number] 2.16.8 [id number] Unknown [id number] 2.16.8 [id number] Unknown [id number] 2.16.8 [id number] Social History Date Type Detail Facility Start: 12-27-2021 End: 12-22-2023 Tobacco smoking status NHIS Smoker (finding) [facility] Start: 1970 Sex Assigned At Male F [facility] Start: 12-25-2023 Tobacco smoking status Heavy t obacco smoker (finding) [facility] Sex Assigned At Male [facility] Goals Date Patient Goal Desired Activity /State Functional Status Date Assessment Result Facility 03-03-2024 Functional Status No [facility] 03-03-2024 Functional Status [facility] 12-25-2023 Functional Status N/A [facility] 12-23-2023 Functional status Functional Sta tus Comment see nurse note [facility] Work Phone: 12-22-2023 Functional status Patient at Baseline [facility] Work Phone: Mental Status Date Assessment Result Facility 12-22-2023 Cognitive function Cognitive Sta tus Patient at Baseline [facility] Work Phone: Clinical Notes 05-27-2020 to 03-04-2024 Note Date & Type Note Facility 03-04-2024 Hospital Discharg e instructions Patient Education 03/04/2024 12:07:35 Nonspecific Chest Pain, Adult Nonspecific Chest Pain, Adult Chest pain is an uncomfortable, tight, or painful feeling in the chest. The pain can feel like a crushing, aching, or squeezing pressure. A person can feel a burning or tingling sensation. Chest pain can also be felt in your back, neck, jaw, shoulder, or arm. This pain can be worse when you move, sneeze, or take a deep breath. Chest pain can be caused by a condition that is life-threatening. This must be treated right away. It can also be caused by something that is not life-threatening. If you have chest pain, it can be hard to know the difference, so it is important to get help right away to make sure that you do not have a serious condition. Some life-threatening causes of chest pain include: Heart attack. A tear in the body's main blood vessel (aortic dissection). Inflammation around your heart (pericarditis). A problem in the lungs, such as a blood clot (pulmonary embolism) or a collapsed lung (pneumothorax). Some non life-threatening causes of chest pain include: Heartburn. Anxiety or stress. Damage to the bones, muscles, and cartilage that make up your chest wall. Pneumonia or bronchitis. Shingles infection (varicella-zoster virus). Your chest pain may come and go. It may also be constant. Your health care provider will do tests and other studies to find the cause of your pain. Treatment will depend on the cause of your chest pain. Follow these instructions at home: Medicines Take [id number] and prescription medicines only as told by your health care provider. If you were prescribed an antibiotic medicine, take it as told by your health care provider. Do not stop taking the antibiotic even if you start to feel better. Activity Avoid any activities that cause chest pain. Do not lift anything that is heavier than 10 lb (4.5 kg), or the limit that you are told, until your health care provider says that it is safe. Rest as directed by your health care provider. Return to your normal activities only as told by your health care provider. Ask your health care provider what activities are safe for you. Lifestyle Do not use any products that contain nicotine or tobacco, such as cigarettes, e-cigarettes, and chewing tobacco. If you need help quitting, ask your health care provider. Do not drink alcohol. Make healthy lifestyle changes as recommended. These may include: ?Getting regular exercise. Ask your health care provider to suggest some exercises that are safe for you. ?Eating a heart-healthy diet. This includes plenty of fresh fruits and vegetables, whole grains, low-fat (lean) protein, and low-fat dairy products. A dietitian can help you find healthy eating options. ?Maintaining a healthy weight. ?Managing any other health conditions you may have, such as high blood pressure (hypertension) or diabetes. ?Reducing stress, such as with yoga or relaxation techniques. General instructions Pay attention to any changes in your symptoms. It is up to you to get the results of any tests that were done. Ask your health care provider, or the department that is doing the tests, when your results will be ready. Keep all follow-up visits as told by your health care provider. This is important. You may be asked to go for further testing if your chest pain does not go away. Contact a health care provider if: Your chest pain does not go away. You feel depressed. You have a fever. You notice changes in your symptoms or develop new symptoms. Get help right away if: Your chest pain gets worse. You have a cough that gets worse, or you cough up blood. You have severe pain in your abdomen. You faint. You have sudden, unexplained chest discomfort. You have sudden, unexplained discomfort in your arms, back, neck, or jaw. You have shortness of breath at any time. You suddenly start to sweat, or your skin gets clammy. You feel nausea or you vomit. You suddenly feel lightheaded or dizzy. You have severe weakness, or unexplained weakness or fatigue. Your heart begins to beat quickly, or it feels like it is skipping beats. These symptoms may represent a serious problem that is an emergency. Do not wait to see if the symptoms will go away. Get medical help right away. Call your local emergency services (911 in the [place] Do not drive yourself to the hospital. Summary Chest pain can be caused by a condition that is serious and requires urgent treatment. It may also be caused by something that is not life-threatening. Your health care provider may do lab tests and other studies to find the cause of your pain. Follow your health care provider's instructions on taking medicines, making lifestyle changes, and getting emergency treatment if symptoms become worse. Keep all follow-up visits as told by your health care provider. This includes visits for any further testing if your chest pain does not go away. This information is not intended to replace advice given to you by your health care provider. Make sure you discuss any questions you have with your health care provider. Document Revised: 03/14/2023 Document Reviewed: 03/14/2023 [employer] Patient Education 2023 [employer]. Follow Up Care 03/03/2024 13:41:25 With:CHAIM REEDER Address: [address] [place] [address] [facility] (1) When: Unknown Comments:Call for followup appointment With:Rema KOHLI, Pb Foster, LETA Address: When:1 to 2 weeks Comments:Call for followup appointment. Needs outpatient stress testCall for followup appointment [facility] 03-04-2024 Evaluation + Plan note Extrac janelle from: Title:Discharge Note Author:Nitesh Garcia DO Date:03/04/24 Discharged to - Home independently Prescriptions Miralax 3350 17 gram packet, 17 gm, Oral, Daily Zofran ODT 4 mg Tab-Dis, 4 mg= 1 tab(s), Oral, q8hr, PRN Home atorvastatin 80 mg Tab, 80 mg= 1 tab(s), Oral, Daily Farxiga 10 mg oral tablet, 10 mg= 1 tab(s), Oral, Daily gabapentin 600 mg Tab, 600 mg= 1 tab(s), Oral, BID, Still taking, not as prescribed: PRN for pain insulin aspart 100 units/mL injectable solution, See Instructions Lantus Solostar Pen 100 units/mL subcutaneous solution, 70 unit(s), SubCutaneous, Bedtime lisinopril 5 mg Tab, 5 mg= 1 tab(s), Oral, Daily metoprolol succinate 25 mg ER Tab, 12.5 mg= 0.5 tab(s), Oral, Daily ondansetron 4 mg Dis Tab, 4 mg= 1 tab(s), Oral, q6hr, PRN ropinirole 0.25 mg Tab, 0.25 mg= 1 tab(s), Oral, Daily With When Contact Information Pb Hodgson MD, CAR Within 1 to 2 weeks Additional Instructions: Call for followup appointment. Needs outpatient stress test Nonspecific Chest Pain, Adult Extracted from: Title:Consult Note Author:Pb Hodgson MD ate:03/04/24 Chest pain in a patient with no known history of coronary artery disease. ECG does not demonstrate active ischemic changes. Serial cardiac enzymes are negative. No significant focal wall motion abnormalities at transthoracic echocardiogram. At this juncture, my recommendations are for an outpatient exercise stress test. Outpatient follow-up after the stress test. 1. Acute chest pain (R07.9: Chest pain, unspecified) 2. RYAN (acute kidney injury) (N17.9: Acute kidney failure, unspecified) 3. Acute hyperglycemia (R73.9: Hyperglycemia, unspecified) 4. Diastolic heart failure (I50.30: Unspecified diastolic (congestive) heart failure) 5. Diabetes (E11.9: Type 2 diabetes mellitus without complications) 6. Tobacco abuse (Z72.0: Tobacco use) 7. Renal cell carcinoma (C64.9: Malignant neoplasm of unspecified kidney, except renal pelvis) Extracted from: Title:Admission H & P Author:Nitesh Garcia DO Date:03/03/24 Patient will be admitted und er observation status due to estimated length of stay less than 2 midnights. All images, labs, EKGs reviewed DVT PPx heparin twice daily, PAS bilaterally Diet cardiac, n.p.o. at midnight in case of procedure CODE STATUS full code 1. Acute chest pain (R07.9: Chest pain, unspecified) Heart score of at least 4. Troponin is negative in ER EKG did not show any ischemic changes Monitor on telemetry Check echo Consult cardiology Ordered: Initial Hospital Care/Day Moderate 55 Minutes [id number] 2. RYAN (acute kidney injury) (N17.9: Acute kidney failure, unspecified) Monitor creatinine Gentle IV fluid hydration Trend May need urine electrolytes Will renally adjust medications 3. Acute hyperglycemia (R73.9: Hyperglycemia, unspecified) Patient states he did not take his Lantus this morning. Patient's last A1c 3 weeks ago was 11% per patient. Accu-Cheks SSI 4. Diastolic heart failure (I50.30: Unspecified diastolic (congestive) heart failure) Per patient had echo a year ago and PCP said he had diastolic heart failure Patient not on any medications No documentation found about echo Repeat echo 5. Diabetes (E11.9: Type 2 diabetes mellitus without complications) Accu-Cheks, SSI Patient on Farxiga Lantus 70 units in the morning with SSI at meals 6. Tobacco abuse (Z72.0: Tobacco use) Smokes 1 PPD Nicotine patch if needed Educated patient on smoking sensation Orders: acetaminophen, 650 mg = 2 tab(s), Tab, Oral, q6hr PRN Pain, Routine, Start date 03/03/24 17:06:00 EDT, 03/03/24 17:06:00 EDT glucose, 50 mL, Soln-IV, IV Push, Once PRN Blood glucose, Routine, Start date 03/03/24 17:06:00 EDT heparin, 5,000 unit(s) = 1 mL, Injection, SubCutaneous, BID for 30 day(s), Stop date 04/02/24 20:59:00 EST, Routine, Start date 03/03/24 21:00:00 EDT, 03/03/24 17:06:00 EDT hydrALAZINE, 10 mg = 0.5 mL, Injection, IV Push, q6hr PRN Other (see comment), Routine, Start date 03/03/24 17:06:00 EDT, 03/03/24 17:06:00 EDT insulin lispro, 0-10 Unit(s), Injection-Insulin, SubCutaneous, QIDACHS, Routine, Start date 03/03/24 21:00:00 EDT morphine, 2 mg = 1 mL, Injection, IV Push, q4hr PRN Pain for 5 day(s), Stop date 03/08/24 17:05:00 EDT, Routine, Start date 03/03/24 17:06:00 EDT, 03/03/24 17:06:00 EDT ondansetron, 4 mg = 2 mL, Injection, IV Push, q6hr PRN Nausea, Routine, Start date 03/03/24 17:06:00 EDT, 03/03/24 17:06:00 EDT senna, 17.2 mg = 2 tab(s), Tab, Oral, BID PRN Other (see comment), Routine, Start date 03/03/24 17:06:00 EDT Activity As Tolerated Basic Metabolic Panel Below the Knee Intermittent Pneumatic Compression Device Cardiac Diet CBC w/ Auto Diff Consult to Cardiology Echo Transthoracic Complete Evaluate Need For Continued Telemetry Hypoglycemia Protocol Responsive Patient Hypoglycemia Protocol Unresponsive Patient Incentive Spirometry NPO Diet Pulse Oximetry Resuscitation Status - Full Routine Capillary Glucose POC Vital Signs Weight Addendum by Jaylen Garcia DO, am on March 03, 2024 17:30:40 EDT Also has history of renal cancer status post nephrectomy Addendum by Jaylen Garcia DO, am on March 03, 2024 17:31:38 EDT Of note as well patient had echo done in 2019 to rule out vegetation that showed EF 55 to 60%. Mild MRCarlos I did ask patient if he had a preference on which cardiology group he saw here and he did not. Extracted from: Title:ED Note Author:Siva Jay DO Date:1 Acute chest pain (R07.9: [address] st pain, unspecified) Acute hyperglycemia (R73.9: Hyperglycemia, unspecified) Current smoker (F17.200: Nicotine dependence, unspecified, uncomplicated) Orders: Basic Metabolic Panel CBC w/ Auto Diff ECG 12 Lead Adult ECG 12 Lead Adult eGFR Extra SST Tube PT & PTT Troponin 0 Hr. Troponin 1 Hr. XR Chest Single View [facility] 10-23-2024 NoteDischarge Summary Admission and Discharge Information Admitting Physician - Lorena HARDY MD Admitting Diagnoses: Discharge Order Date Discharge Patient - Ordered -- 03/04/24 12:09:00 EDT Discharge Diagnoses 1. Acute chest pain, 03/03/2024 2. RYAN (acute kidney injury), 03/03/2024 3. Acute hyperglycemia, 03/03/2024 4. Diastolic heart failure, 03/03/2024 5. Diabetes, 03/03/2024 6. Tobacco abuse, 03/03/2024 7. Renal cell carcinoma, 03/03/2024 Arm pain-swelling, 03/03/2024 Chest pain, 03/03/2024 Nausea, 03/03/2024 Hospital Course 53-year-old male with past medical history of diabetes, possible diastolic heart failure, tobacco abuse, presented to ER on 03/03 due to episode of chest pain. Patient describes chest pain as heaviness/squeezing. Patient states he had pain in left arm. Patient states he was short of breath, nauseous, diaphoretic. Patient states episode lasted approximately 3 to 5 minutes. Patient states nothing made it better nothing made it worse. Patient states he was pumping gas when episode occurred. Patient denies history of heart attack. Patient states he had negative stress test done a year ago. Patient does not follow-up with cardiology. Patient states his PCP manages his medications. Patient stateshe had echo by PCP that showed diastolic heart failure. Smokes approximately 1 pack a day. 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 Was at home with his and kids. In ED patient had relatively benign lab work. Troponins were 3.3 and 3.4. Patient did have mildly elevated creatinine of 1.5. EKG did not show any ischemic changes. Chest x-ray negative for acute findings. Patient was admitted for further workup and treatment. Cardiology was consulted and followed patient. Patient had echocardiogram that did not show any acute findings or wall motion abnormalities. Cardiology did see patient during stay and recommended outpatient stress test. Patient's troponins did not increase at all. Patient did not have any changes on telemetry throughout stay. Patient did not have any other chest pain episodes during stay. I did discuss diagnosis and treatment plan with patient who agree and accept plan of treatment. Patient stable at discharge. No medication changes Follow-up appointments Cardiology within 1 to 2 weeks, call for stress test PCP within 1 week Discharge time 33 minutes which included extensive conversation with patient about diagnosis and treatment plan. Along with communication with consultants, nursing, case management. Services Consulted Consult to Cardiology - Ordered -- 03/03/24 17:04:00 EDT, Chest pain, Consult and Co-manage, [facility] Physical Exam Vitals & Measurements T: 36.4 ???C(Oral) TMIN: 36.4 ???C(Oral) TMAX: 36.7 ???C(Oral) HR: 74(Monitored) RR: 16 BP: 115/67 SpO2: 96% HT: 180.34 cm WT: 89.1 kg General: NAD Skin: Warm, dry Head: No trauma, normocephalic Neck: Trachea midline, supple, negative for JVD Eye: Conjunctive are clear, clear sclera , EOMI ENMT: oral mucosa moist, no lesions or edema nose or external ears Cardiovascular: Regular rate and rhythm, S1-S2 present, negative for murmurs rubs or gallops Respiratory: Lungs clear to auscultation, bilateral symmetric movement, negative for wheezes rales or rhonchi Chest wall: no deformity. Gastrointestinal: Abdomen soft, bowel sounds present, nontender to palpation Back: No tenderness Extremities: Range of motion intact, no edema Neurological: awake, alert, speech normal, cranial nerves II through XII intact, no sensory defects, alert and oriented x3 Psychiatric: cooperative, affect appropriate for age, pleasant Tests Performed Echo Transthoracic Complete XR Chest Single View Discharge Plan Discharge Disposition Discharged to - Home independently Discharge Medication List Prescriptions Miralax 3350 17 gram packet, 17 gm, Oral, Daily Zofran ODT 4 mg Tab-Dis, 4 mg= 1 tab(s), Oral, q8hr, PRN Home atorvastatin 80 mg Tab, 80 mg= 1 tab(s), Oral, Daily Farxiga 10 mg oral tablet, 10 mg= 1 tab(s), Oral, Daily gabapentin 600 mg Tab, 600 mg= 1 tab(s), Oral, BID, Still taking, not as prescribed: PRN for pain insulin aspart 100 units/mL injectable solution, See Instructions Lantus Solostar Pen 100 units/mL subcutaneous solution, 70 unit(s), SubCutaneous, Bedtime lisinopril 5 mg Tab, 5 mg= 1 tab(s), Oral, Daily metoprolol succinate 25 mg ER Tab, 12.5 mg= 0.5 tab(s), Oral, Daily ondansetron 4 mg Dis Tab, 4 mg= 1 tab(s), Oral, q6hr, PRN ropinirole 0.25 mg Tab, 0.25 mg= 1 tab(s), Oral, Daily Follow-up With When Contact Information Rema KOHLI, Pb Foster, LETA Within 1 to 2 weeks Additional Instructions: Call for followup appointment. Needs outpatient stress test Patient Education Nonspecific Chest Pain, [facility]:Result Comment: Electronically Signed By: Nitesh Garcia DO.br\Date and Time Signed: 03/04/24 12:11 [id number] NoteConsultation Note Chief Complaint CP, left arm pain Reason for Consultation Chest pain History of Present Illness The patient is a 53-year-old male with past history of diabetes mellitus type 2, smoking, who presented yesterday with complaints of chest discomfort. He describes the chest pain as feelings of hugging sensations and tightness across his chest, which happened to him yesterday at the gas station. The episode lasted for 2 minutes. He has been asymptomatic since. CAD risk factors include history of hypertension, diabetes mellitus type 2. ECG showed sinus rhythm with left anterior hemiblock, no active ischemia, essentially unchanged from prior. Serial cardiac enzymes are negative. Echocardiogram showed no local wall motion abnormalities. At the moment of my exam, he is asymptomatic Review of Systems ROS - Provider Constitutional: no fever, no chills, no fatigue Skin:no rash, no lesions ENMT: no ear pain, no sore throat, no congestion. Respiratory: no shortness of breath, no cough, no wheezing. Cardiovascular: no chest pain, no palpitations, no edema. Gastrointestinal: no nausea, no vomiting, no diarrhea, no GI bleeding. Genitourinary: no dysuria, no frequencyno hematuria Musculoskeletal: no back pain, no trauma. Neurologic: no headache, no dizziness, no numbness, no weakness. Psychiatric: no sleeping problems, no irritability, no mood swings/depression. Heme/Lymph: no bleeding tendency, no bruising tendency, no petechiae, Allergy/Immuno logic: no seasonal allergies, no food allergies, no recurrent infections Physical Exam General: alert, no acute distress Neck: Supple, noJVD nocarotid bruit Cardiovascular: regular rate and rhythm, no murmur normal peripheral perfusion Respiratory: Lungs CTAB, respirations non labored Extremities: no edema left lower extremity. no edema right lower extremity Neurological: oriented x 4, LOC appropriate for age, speech normal Skin: Warm, dry, intact- no rash or concerning lesions Images (03/04/2024 09:13 EDT Echo Transthoracic Complete) Adult Echocardiogram Report Name: GENE BARAHONA Study Date: 03/04/2024 08:38 AM BP: 137/89 mmHg Patient [place] [facility] [place] [facility] [place] 1970 Gender: Male Height: 71 in Age: 53 yrs Ethnicity: [facility] Weight: 196 lb Reason For Study: Chest pain BSA: 2.1 m2 History: Diabetes,Smoker-Yes Ordering Physician: Yolanda Performed By: Maricruz Demarco, SADA, RVT Interpretation Summary Left ventricular systolic function is normal. Ejection Fraction = 60-65%. No obvious regional wall motion abnormalities noted Grade I diastolic dysfunction, (abnormal relaxation pattern). There is no pericardial effusion. No signifivant valvular disease. [1] Assessment/Plan Chest pain in a patient with no known history of coronary artery disease. ECG does not demonstrate active ischemic changes. Serial cardiac enzymes are negative. No significant focal wall motion abnormalities at transthoracic echocardiogram. At this juncture, my recommendations are for an outpatient exercise stress test. Outpatient follow-up after the stress test. 1. Acute chest pain (R07.9: Chest pain, unspecified) 2. RYAN (acute kidney injury) (N17.9: Acute kidney failure, unspecified) 3. Acute hyperglycemia (R73.9: Hyperglycemia, unspecified) 4. Diastolic heart failure (I50.30: Unspecified diastolic (congestive) heart failure) 5. Diabetes (E11.9: Type 2 diabetes mellitus without complications) 6. Tobacco abuse (Z72.0: Tobacco use) 7. Renal cell carcinoma (C64.9: Malignant neoplasm of unspecified kidney, except renal pelvis) Problem List/Past Medical History Ongoing Diabetes Diastolic heart failure Smoker Tobacco abuse Historical No qualifying data Medications Inpatient acetaminophen 325 mg Tab, 650 mg= 2 tab(s), Oral, q6hr, PRN atorvastatin 40 mg Tab, 80 mg= 2 tab(s), Oral, Daily Dextrose 50% Soln-IV, 50 mL, IV Push, Once, PRN empagliflozin 10 mg oral tablet, 10 mg= 1 tab(s), Oral, Daily heparin 5000 units/mL Inj, 5000 unit(s)= 1 mL, SubCutaneous, BID HumaLOG Sliding Scale, 0-10 Unit(s), SubCutaneous, QIDACHS hydrALAZINE 20 mg/mL Inj, 10 mg= 0.5 mL, IV Push, q6hr, PRN lisinopril 5 mg Tab, 5 mg= 1 tab(s), Oral, Daily metoprolol succinate 25 mg ER Tab, 12.5 mg= 0.5 tab(s), Oral, Daily Miralax 3350 17 gram packet, 17 gm= 1 EA, Oral, Daily morphine 2 mg/mL Inj, 2 mg= 1 mL, IV Push, q4hr, PRN ropinirole 0.25 mg Tab, 0.25 mg= 1 tab(s), Oral, Daily Senokot 8.6 mg Tab, 17.2 mg= 2 tab(s), Oral, BID, PRN Zofran 4 mg/2 mL Injection, 4 mg= 2 mL, IV Push, q6hr, PRN Home atorvastatin 80 mg Tab, 80 mg= 1 tab(s), Oral, Daily busPIRone 10 mg Tab, 10 mg= 1 tab(s), Oral, BID, Not taking cetirizine 10 mg Tab, 10 mg= 1 tab(s), Oral, Daily, Not taking Farxiga 10 mg oral tablet, 10 mg= 1 tab(s), Oral, Daily gabapentin 600 mg Tab, 600 mg= 1 tab(s), Oral, BID, Still taking, not as prescribed: [place] (more content not included)...[facility] HospitalComment on above:Result Comment: Electronically Signed By: Rema KOHLI, Pb Foster\.linden\Date and Time Signed: 03/04/24 12:00 [id number] Hospital Discharge instructions Patient Education 12/25/2023 18:20:44 Abdominal Pain, Adult, Qwkz-gh-Fekh Abdominal Pain, Adult Many things can cause belly (abdominal) pain. Most times, belly pain is not dangerous. Many cases of belly pain can be watched and treated at home. Sometimes, though, belly pain is serious. Your doctor will try to find the cause of your belly pain. Follow these instructions at home: Medicines Take ecrp-jsy-pqkzqov and prescription medicines only as told by your doctor. Do not take medicines that help you poop (laxatives) unless told by your doctor. General instructions Watch your belly pain for any changes. Drink enough fluid to keep your pee (urine) pale yellow. Keep all follow-up visits as told by your doctor. This is important. Contact a doctor if: Your belly pain changes or gets worse. You are not hungry, or you lose weight without trying. You are having trouble pooping (constipated) or have watery poop (diarrhea) for more than 2 3 days. You have pain when you pee or poop. Your belly pain wakes you up at night. Your pain gets worse with meals, after eating, or with certain foods. You are vomiting and cannot keep anything down. You have a fever. You have blood in your pee. Get help right away if: Your pain does not go away as soon as your doctor says it should. You cannot stop vomiting. Your pain is only in areas of your belly, such as the right side or the left lower part of the belly. You have bloody or black poop, or poop that looks like tar. You have very bad pain, cramping, or bloating in your belly. You have signs of not having enough fluid or water in your body (dehydration), such as: ?Dark pee, very little pee, or no pee. ?Cracked lips. ?Dry mouth. ?Sunken eyes. ?Sleepiness. ?Weakness. You have trouble breathing or chest pain. Summary Many cases of belly pain can be watched and treated at home. Watch your belly pain for any changes. Take qwtn-sqg-giyvueq and prescription medicines only as told by your doctor. Contact a doctor if your belly pain changes or gets worse. Get help right away if you have very bad pain, cramping, or bloating in your belly. This information is not intended to replace advice given to you by your health care provider. Make sure you discuss any questions you have with your health care provider. Document Revised: 09/07/2019 Document Reviewed: 09/07/2019 [employer]! Patient Education 2022 [employer]. Follow Up Care 12/25/2023 14:15:59 With:Steve Guadalupe Address: [address], [address] [phone] Business (1) When:12/28/2023 18:20:32 With:CHAIM REEDER Address: [address] [address]- Business (1) When:12/28/2023 18:19:07 Comments:Use MiraLAX daily for the next week. Increase water intake while using it. Use the naproxen as needed for pain. Follow-up with your family physician and the technical information specialist for further management of care. [facility] 08-14-2024 NoteED Patient Education Note Gastroenterology Abdominal Pain, Adult Many things can cause belly (abdominal) pain. Most times, belly pain is not dangerous. Many cases of belly pain can be watched and treated at home. Sometimes, though, belly pain is serious. Your doctor will try to find the cause of your belly pain. Follow these instructions at home: Medicines ? Take fmmg-txy-hkkdiwd and prescription medicines only as told by your doctor. ? Do not take medicines that help you poop (laxatives) unless told by your doctor. General instructions ? Watch your belly pain for any changes. ? Drink enough fluid to keep your pee (urine) pale yellow. ? Keep all follow-up visits as told by your doctor. This is important. Contact a doctor if: ? Your belly pain changes or gets worse. ? You are not hungry, or you lose weight without trying. ? You are having trouble pooping (constipated) or have watery poop (diarrhea) for more than 2?3 days. ? You have pain when you pee or poop. ? Your belly pain wakes you up at night. ? Your pain gets worse with meals, after eating, or with certain foods. ? You are vomiting and cannot keep anything down. ? You have a fever. ? You have blood in your pee. Get help right away if: ? Your pain does not go away as soon as your doctor says it should. ? You cannot stop vomiting. ? Your pain is only in areas of your belly, such as the right side or the left lower part of the belly. ? You have bloody or black poop, or poop that looks like tar. ? You have very bad pain, cramping, or bloating in your belly. ? You have signs of not having enough fluid or water in your body (dehydration), such as: ? Dark pee, very little pee, or no pee. ? Cracked lips. ? Dry mouth. ? Sunken eyes. ? Sleepiness. ? Weakness. ? You have trouble breathing or chest pain. Summary ? Many cases of belly pain can be watched and treated at home. ? Watch your belly pain for any changes. ? Take elji-uyb-ammefmh and prescription medicines only as told by your doctor. ? Contact a doctor if your belly pain changes or gets worse. ? Get help right away if you have very bad pain, cramping, or bloating in your belly. This information is not intended to replace advice given to you by your health care provider. Make sure you discuss any questions you have with your health care provider. Document Revised: 09/07/2019 Document Reviewed: 09/07/2019 [employer]! Patient Education ? 2022 [employer].[facility] 12-25-2023 Evaluation + Plan noteExtracted from: Title:ED Note Author:Violeta JO, Greer Shi te:12/25/23 Constipation (K59.00: Consti pation, unspecified) Continuous epigastric pain (R10.13: Epigastric pain) Orders: ketorolac, 30 mg = 1 mL, Injection, IV Push, Once, Stop date 12/25/23 14:42:00 EDT, STAT, Start date 12/25/23 14:42:00 EDT, 12/25/23 14:42:00 EDT morphine, 4 mg = 1 mL, Injection, IV Push, Once, Stop date 12/25/23 16:04:00 EDT, STAT, Start date 12/25/23 16:04:00 EDT, 12/25/23 16:04:00 EDT naproxen, 500 mg = 1 tab(s), Oral, BID, PRN Pain, # 30 tab(s), Refills(s) 0, Pharmacy: [facility]/pharmacy #[id number], 180.3, cm, 12/25/23 14:23:00 EDT, Height/Length Dosing, 88.5, kg, 12/25/23 14:23:00 EDT, Weight Dosing ondansetron, 4 mg = 2 mL, Injection, IV Push, Once, Stop date 12/25/23 14:42:00 EDT, STAT, Start date 12/25/23 14:42:00 EDT, 12/25/23 14:42:00 EDT polyethylene glycol 3350, 17 gm, Oral, Daily, # 30 EA, Refills(s) 0, Pharmacy: [facility]/pharmacy #[id number], 180.3, cm, 12/25/23 14:23:00 EDT, Height/Length Dosing, 88.5, kg, 12/25/23 14:23:00 EDT, Weight Dosing Sodium Chloride 0.9% intravenous solution, 1,000 mL, Soln-IV, IV, Once, Stop date 12/25/23 14:42:00 EDT, STAT, Start date 12/25/23 14:42:00 EDT, Infuse over 61, minute(s) Basic Metabolic Panel CBC w/ Auto Diff ECG 12 Lead Adult ED Cardiac Monitoring eGFR Hepatic Function Panel Lipase Level Oxygen Saturation Oxygen Therapy PT & PTT Saline Lock Insert Troponin 0 Hr. Troponin 1 Hr. UA with Cult Rflx XR Abdomen 1 View XR Chest Single View [facility] 08-11-2024 History and physical note Author Shemar Grover [facility] December 22, 2023 9:03pm Note Date/Time December 22, 2023 8: 09pm [facility] [address] [place] [address] Hospitalist H&P Signed Patient: Gene Barahona MR#: [id number] : 1970 Acct:[id number] Age/Sex: 53 / M Adm Date: 4 Loc: Room: [address] [place] [address] Type: ADM IN Attending Dr: Shemar Grover MD Copies to: Chaim Reeder, NETTING WE[employer]ER-C Shemar Grover MD~ HPI DATE OF EXAMINATION: 01/15/24 HISTORY OF PRESENT ILLNESS: This is a 53M with PMH of HTN, DM, HLD, right Renal cell cancer s/p nephrectomy 2015, gastritis, hemorrhoids who presented with flank pain and admitted for the evaluation and treatment of suspected acute pancreatitis For the past three weeks he reported constant flank pain in his right more than left that was exacerbated with standing up. The pain was not improving. He went to the ED for it 12/18, 12/19 and today. He reported nausea but no vomiting. No urinary changes, fever or chills. He doesn't drink. There is no overt abdominal pain. There were no recent medication changes. ROS: Ten Systems reviewed with the patient, all negative except what stated above Assessment And Plan Right flank pain , rule out acute pancreatitis He is afebrile, hemodynamically stable, with no leukocytosis. Lipase was mildly elevated urinalysis didn?t show any pyuria or hematuria ABD CT shows Hepatic steatosis questionable acute pancreatitis The patient refuse any diet restriction he said will leave AMA if i put any dietrestriction aggressive IVF Hold Farxiga CBC in am GI evaluation DM blood sugars were reviewed Patient declined carb controlled diet sliding scale insulin and accuchecks hold oral antidiabetic medication/metformin basal insulin (reduced home insulin dose to avoid hypoglycemia). hypoglycemia protocol ? Chronic diseases:?Unless mentioned Above, Essential home medications have been continued.? DVT Px:?Addressed low risk SCD Plan of care Discussed with:?the medical team, the patient [facility] Medical History Systolic heart failure History of kidney cancer Restless leg syndrome Iron (Fe) deficiency anemia TIA (transient ischemic attack) Migraine Diabetes Surgical History History of cholecystectomy Hx of appendectomy H/O eye surgery History of nephrectomy, right Family History Family/Other DM2 (diabetes mellitus, type 2) Daughter Family history of mental disorder Legacy FamHx Relation: Daughter(s); Legacy FamHx Problem: Diagnosed with Mental Illness Father Heart disease Family history of mental disorder Legacy FamHx Problem: Diagnosed with Mental Illness Mother Heart disease Family history of mental disorder Legacy FamHx Problem: Diagnosed with Mental Illness Social History Smoking Status: Current every day smoker Tobacco Type: cigarettes Substance Use Type: Alcohol Substance Abuse Comment: rarely Meds Medications and Allergies Allergies No Known Allergies Allergy (Verified 12/22/23 12:23) Home Medications gabapentin 600 mg tablet (Neurontin) 600 mg PO QHS 11/10/20 [History Confirmed 12/22/23] hydrochlorothiazide 25 mg tablet 25 mg PO QAM 11/10/20 [History Confirmed 12/22/23] insulin aspart U-100 100 unit/mL subcutaneous solution See Rx Instructions .Route .COMPLEX 11/10/20 [History Confirmed 12/22/23] insulin glargine 100 unit/mL (3 mL) subcutaneous pen (Lantus Solostar U-100 Insulin) 70 unit subcut QHS 11/10/20 [History Confirmed 12/22/23] atorvastatin 40 mg tablet 40 mg PO DAILY 05/09/21 [History Confirmed 12/22/23] tizanidine 4 mg tablet (Zanaflex) 4 mg PO Q6HR 05/09/21 [History Confirmed 12/20/23] venlafaxine 150 mg capsule,extended release 24 hr (Effexor XR) 150 mg PO DAILY 05/09/21 [History Confirmed 12/20/23] ropinirole 0.25 mg tablet 0.25 mg PO DAILY 09/04/21 [History Confirmed 12/22/23] albuterol sulfate 90 mcg/actuation aerosol inhaler (ProAir HFA) 1 inh inhalationQ4-6H PRN shortness of breath or wheezing #8.5 grams 11/28/21 [Rx Confirmed 12/20/23] dapagliflozin propanediol 10 mg tablet (Farxiga) 10 mg PO DAILY 12/15/21 [History Confirmed 12/20/23] doxycycline hyclate 100 mg tablet 100 mg PO BID 10 days #20 tabs 03/07/22 [Rx Confirmed 12/20/23] ondansetron HCl 4 mg tablet 4 mg PO Q8HR PRN nausea and vomiting 5 days #15 tabs12/19/23 [Rx Confirmed 12/22/23] oxycodone 5 mg tablet 5 mg PO BID PRN severe pain (scale score 7-10) 3 days #6 tabs 12/19/23 [Rx Confirmed 12/22/23] polyethylene glycol 3350 17 gram/dose oral powder (Miralax) 17 g PO BID PRN constipation #238 grams 12/19/23 [Rx Confirmed 12/22/23] lisinopril 10 mg tablet 10 mg PO DAILY 12/20/23 [History Confirmed 12/22/23] oxycodone-acetaminophen 5 mg-325 mg tablet (Percocet) 1 - 2 tab PO Q4-6H PRN pain 4 days #15 tabs 12/20/23 [Rx Confirmed 12/22/23] Exam Physical Exam Vital Signs: Temp Pulse Resp BP Pulse Ox O2 Del Method 36.6 C 76 18 146/93 H 99 Nasal Cannula 12/22/23 19:16 12/22/23 19:16 12/22/23 19:16 12/22/23 19:16 12/22/23 19:16 12/22/23 19:16 Narrative: GEN: Pleasant, Cooperative, Not in acute distress. NECK: Supple, ? JVD, LUNGS: CTA. normal respiratory effort. CHEST: no chest wall tenderness. ABD: Soft, ND, minimal RLQ tenderness , + BS, ? rebound/guarding, right ?CVA tenderness more than left , ? HSM NEURO: ? FND, PSYCH: nl affect, ? hallucinations, nl speech, AOx3. Results - Hospitalist H&P Lab Results Labs: Laboratory Last Values Corrected WBC 8.6 X10E3/uL (4.1-10.5) 12/22/23 13:31 Uncorrected WBC Count 8.6 x10E3/uL (4.1-10.5) 12/22/23 13:31 RBC 5.23 X10E6/uL (3.90-5.60) 12/22/23 13:31 Hgb 15.8 g/dL (13.0-17.0) 12/22/23 13:31 Hct 45.3 % (38.8-50.0) 12/22/23 13:31 MCV 86.6 fl (83.5-101) 12/22/23 13:31 MCH 30.2 pg (27.5-35.2) 12/22/23 13:31 MCHC 34.8 g/dL (32.5-35.6) 12/22/23 13:31 RDW 13.7 % (12.0-14.8) 12/22/23 13:31 Plt Count 180 x10E3/uL (150-450) 12/22/23 13:31 MPV 9.0 fl (6.6-10.1) 12/22/23 13:31 Neut % (Auto) 62.7 % (.) 12/22/23 13:31 Lymph % (Auto) 28.0 % (.) 12/22/23 13:31 [place] % (Auto) 6.0 % (.) 12/22/23 13:31 Eos % (Auto) 2.5 % (.) 12/22/23 13:31 Baso % (Auto) 0.8 % (.) 12/22/23 13:31 Nucleat RBC Rel Count 0.0 /100 WBC (0-0.5) 12/22/23 13:31 Neut # (Auto) 5.4 x10E3/uL (1.8-7.7) 12/22/23 13:31 Lymph # (Auto) 2.4 x10E3/uL (1.00-4.8) 12/22/23 13:31 [place] # (Auto) 0.5 x10E3/uL (0.0-0.8) 12/22/23 13:31 Eos # (Auto) 0.2 x10E3/uL (0.0-0.45) 12/22/23 13:31 Baso # (Auto) 0.1 x10E3/uL (0.0-0.2) 12/22/23 13:31 Monocyte Dist Width 18.13 % (0.00-20.00) 12/22/23 13:31 PHA Creatinine Clear 80.80 12/22/23 13:31 Sodium 138 mmol/L (136-145) 12/22/23 13:31 Potassium 3.8 mmol/L (3.5-5.1) 12/22/23 13:31 Chloride 102 mmol/L (98-107) 12/22/23 13:31 Carbon Dioxide 28.8 mmol/L (21.0-31.0) 12/22/23 13:31 Anion Gap 11.0 mEq/L (6.0-15.0) 12/22/23 13:31 BUN 15 mg/dL (7-25) 12/22/23 13:31 Creatinine 1.17 mg/dL (0.70-1.30) 12/22/23 13:31 Est GFR (CKD-EPI) > 60.0 mL/Min 12/22/23 13:31 Glucose 164 mg/dL (70-100) H 12/22/23 13:31 Calcium 9.2 mg/dL (8.6-10.3) 12/22/23 13:31 Total Bilirubin 0.4 mg/dl (0.3-1.0) 12/22/23 13:31 AST 25 U/L (13-39) 12/22/23 13:31 ALT 30 U/L (7-52) 12/22/23 13:31 Alkaline Phosphatase 101 U/L (34-104) 12/22/23 13:31 Total Protein 7.3 gm/dL (6.4-8.9) 12/22/23 13:31 Albumin 4.3 gm/dL (3.5-5.7) 12/22/23 13:31 Globulin 3.0 gm/dL 12/22/23 13:31 Albumin/Globulin Ratio 1.4 12/22/23 13:31 Amylase 52 U/L (29-103) 12/22/23 13:31 Lipase 99.0 U/L (11.0-82.0) H 12/22/23 13:31 Urine Color Light-yellow (Yellow) 12/22/23 13:31 Urine Appearance Clear (Clear) 12/22/23 13:31 Urine pH 7.0 (5.0-9.0) 12/22/23 13:31 Ur Specific [place] 1.018 (1.001-1.030) 12/22/23 13:31 Urine Protein 30 mg/dL (Negative) H 12/22/23 13:31 Urine Glucose (UA) >=1000 mg/dL (Normal) H 12/22/23 13:31 Urine Ketones Negative (Negative) 12/22/23 13:31 Urine Occult Blood Negative (Negative) 12/22/23 13:31 Urine Nitrite Negative (Negative) 12/22/23 13:31 Urine Bilirubin Negative (Negative) 12/22/23 13:31 Urine Urobilinogen 2 mg/dL (Normal) H 12/22/23 13:31 Ur Leukocyte Esterase Negative (Negative) 12/22/23 13:31 Urine RBC 1-2 /HPF (0-4) 12/22/23 13:31 Urine WBC 1-2 /HPF (0-4) 12/22/23 13:31 Ur Squamous Epith Cells N/A 12/22/23 13:31 Urine Bacteria None seen /HPF (None Seen) 12/22/23 13:31 Hyaline Casts None /LPF (0-8) 12/22/23 13:31 Assessment & Plan Assessment/Plan (1) Acute pancreatitis: Plan IP vs OBS Justification Based on differential dx, clinical care plan, and risk of adverse events, if untreated, in my clinical judgement this patient requires an acute care setting as: INPATIENT because of an expectation of an over 2 midnight stay. Estimated length of stay (# of days): 2 Documented By: Shemar Grover MD 12/22/231953 Signed By: <Electronically signed by Shemar Grover MD> 12/22/232102 [facility] Work Phone: [phone]) 123-696710-19-2022 Procedure [facility]01-28-2022 Progress note Author Mara Luciatitofer [facility] June 09, 2021 4:20pm Note Date/Time June 09, 2021 3 :10pm [facility] at [address] [address] Hem/Onc Follow Up Note - OP Signed Patient: Gene Barahona MR#: [id number] : 1970 Acct:[id number] Age/Sex: 50 / M Type: REG RCR Copies to: [facility] Fredy Brito II, DO~ Subjective Date/Time of [...] little lightheaded and shaky. He following with Chaim Reeder [employer] currently. He is uninsured so cannot see [...] unchanged from last year. still following with Chaim Reeder [employer] for this is drinking about 4 energy [...] % (Auto) 60.4, Lymph % (Auto) 29.8, [place] % (Auto) 7.7, Eos % (Auto) 1.3, Baso % (Auto) 0.8, Neut # (Auto) 4.1, Lymph # (Auto) 2.0, [place] # (Auto) 0.5, Eos# (Auto) 0.1, Baso [...] He re-established care in 2019 during admission [facility]. He is now followed yearly with [...] for coordination of care (as documented) and cpef-nr-ejie counseling of patient and/or family. Dictated By: Mara Page APRN DD/ 1503 Signed By: <Electronically signed by MACIE Page> 06/09/21 1620 [facility] Work Phone: [phone] 355-726001-15-2021 Progress note Author Fredy Brito [facility] May 27, 2020 9:18am Note Date/Time May 27, 2020 8 :56am [facility] [place] [address] Hem/Onc Follow Up Note - OP Signed Patient: Gene Barahona MR#: [id number] : 1970 Acct:[id number] Age/Sex: 49 / M Type: REG RCR Copies to: [employer] [facility]~ Subjective Date/Time of Service: Date of [...] little lightheaded and shaky. He following with Chaim Reeder [employer] [employer] currently. He is uninsured so cannot see [...] for coordination of care (as documented) and [id number]-[id number] counseling of patient and/or family. Attestation Statement - Physician Attestation f/u 1 year after repeat imaging. labs at f/u. Dictated By: Fredy Brito II, DO DD/ 0855 Signed By: <Electronically signed by Fredy Brito II, DO> 05/27/20 0918 [facility] Work Phone: Evaluation noteNo assessment information available [facility] Work Phone: Evaluation note* Diagnosis Onset Date Resolution Status Renal cell cancer acute [facility] Work Phone: Evaluation note* Diagnosis Onset Date Resolution Status Acute pancreatitis acute [facility] Work Phone: History and physical note Author Devon Damico [facility] February 28, 2022 9:25am Note Date/Time February 28, 2022 9 :25am [facility] [address] [place] [address] Gastroenterology H&P Signed Patient: Gene Barahona MR#: [id number] : 1970 Acct:[id number] Age/Sex: 51 / M Adm Date: 2 Loc: Room: Type: [facility] Attending Dr: Devon Damico MD Copies to: Devon Damico MD [facility]~ Date of Service: 02/28/2022 HISTORY & PHYSICAL: [...] <Electronically signed by Devon Damico MD> 02/28/22924 [facility] Work Phone: Hospital course Narrative No data available for this section [facility] Hospital Discharge instructions Additional Instructions Use the eye antibiotic ointment 3 times a day in the left eye while awake May apply warm compresses for discomfort drainage May take [id number] medication for discomfort Follow-up with [facility] or another Eye Center of your choice this week for recheck Go to an eye center immediately or return to the ER for worsening redness swelling pain loss of vision or any other [facility] Work Phone: Hospital Discharge instructions Additional [...] NOT operate machinery such as power tools, lawn mowers, snow blowers, sewing machines, etc. for [...] NOT operate machinery such as power tools, lawn mowers, snow blowers, sewing machines, etc. for [...] Follow up with PCP. - Office number [phone].[facility] Work Phone: Hospital Discharge instructions Additional [...] significantly elevated blood sugar or any other concernsMer[facility] Work Phone: Hospital Discharge instructions Additional Instructions If your symptoms return/worsen or you develop any further concerns or symptoms please see your doctor or return to the emergency department immediately.[facility] Work Phone: Hospital Discharge instructions Additional Instructions Increase your intake of fluids and rest. Take Zofran as prescribed for nausea. Take oxycodone as prescribed for severe pain. You can take Motrin Tylenol as needed for mild to moderate pain. Follow-up with your PCP for recheck next few days and stop taking Trulicity as this may have caused her pancreatitis. If your symptoms worsen return to the emergency department. Take MiraLAX as prescribed to help with constipationMer[facility] Work Phone: Progress note Author Fredy Brito [facility] June 08, 2022 11:30am Note Date/Time June 08, 2022 1 1:25am [facility] at [address] [address] Hem/Onc Follow Up Note - OP Signed Patient: Gene Barahona MR#: [id number] : 1970 Acct:[id number] Age/Sex: 51 / M Type: REG RCR Copies to: [facility]~ Date of Service: 06/08/2022 Time of Service: [...] He re-established care in 2019 during admission [facility]. He is now followed yearly with [...] little lightheaded and shaky. He following with Chaim Reeder [facility] [employer] currently. He is uninsured so cannot see [...] unchanged from last year. still following with Chaim Reeder [employer] for this is drinking about 4 energy [...] for coordination of care (as documented) and qaod-wj-fqwn counseling of patient and/or family. [facility] [...] % (Auto) 56.5, Lymph % (Auto) 31.4, [place] % (Auto) 7.9, Eos % (Auto) 3.6, Baso % (Auto) 0.6, Nucleat RBC Rel Count 0.1, Neut # (Auto) 4.6, Lymph # (Auto) 2.6, [place] # (Auto) 0.6, Eos # (Auto) 0.3, [...] Q6H PRN pain 3 days #10 tabs 10/26/22 [Rx] azithromycin 250 mg tablet See Rx Instructions PO .COMPLEX #6 tabs 05/14/22 [Rx] benzonatate 200 mg capsule 200 mg PO TID PRN cough #14 caps 05/14/22 [Rx] Dictated By: Fredy Brito II, DO DD/ 1124 Signed By: <Electronically signed by Fredy Brito II DO> 06/08/22 1130 [facility] Work Phone: Progress note No data available for this section [facility] Chief Complaint and Reason for Visit Chief [...] Complaint R07.89 I50.30 R07.89 Chief Complaint I65.22 Chief Complaint Mixed hyperlipidemia Type 2 diabetes mellitus with Chief Complaint Mixed hyperlipidemia Type 2 diabetes mellitus with E11.69 Back Pain Chief Complaint Mixed hyperlipidemia Type 2 diabetes mellitus with E11.69 Back Pain back/abd pain Chief Complaint Mixed hyperlipidemia Type 2 diabetes mellitus with E11.69 Back Pain back/abd pain back pain Reason for Visit Acute pancreatitis Chief Complaint Mixed hyperlipidemia Type 2 diabetes mellitus with E11.69 Back Pain back/abd pain back pain Acute pancreatitis, unspecified complication statu Reason for Visit Acute pancreatitis Advance Directives No Advanced Directives Records Found Advance Directive Response Recorded Date/ Time Advance Directives No March 04, 2017 3:14pm Advance Directive Response Recorded Date/ Time Advance Directives No March 04, 2017 2:14pm Summary Purpose Family History Relationship Condition Age at Onset Recorded Date/T elizabeth family member Type 2 diabetes mellitus Unknown daughter Family history of mental disorder Unknown father Heart disease Unknown Family history of mental disorder Unknown Not Specified Heart disease Unknown Unknown No Family History Records Found Additional Source Comments Care Teams (unrecognized sec tion and content) Team Status: Inactive Member Role Status [facility] Family Health Primary Care Provider Active Godwin Coker DO Emergency Provider Active Team Status: Inactive Member Role Status [facility] Family Health Primary Care Provider Active Mohit Carlos DO Emergency Provider Active Team Status: Inactive Member Role Status [facility] Family Health Primary Care Provider Active JOSE Hillman Attending Provider Active Team Status: Inactive Member Role Status [facility] Family Health Primary Care Provider Active Tae Anne PA-C Emergency Provider Active Team Status: Active Member Role Status [facility] Family Health Primary Care Provider Active Team Status: Inactive Member Role Status [facility] Family Health Primary Care Provider Active Devon Damico MD Attending Provider Active Team Status: Inactive Member Role Status [facility] Family Health Primary Care Provider Active Kiya Riggins [employer]- Emergency Provider Active Team Status: Inactive Member Role Status [facility] Family Health Primary Care Provider Active Fredy Mayorga APRN Emergency Provider Active Team Status: Active Member Role Status [facility] Family Health Primary Care Provider Active Fredy Brito II, DO Attending Provider Active Team Status: Inactive Member Role Status [facility] Family Health Primary Care Provider Active Chaim Reeder NP-C Attending Provider Active Mitch Wallace DO Referring Provider Active Team Status: Inactive Member Role Status Dates JOSE Hillman Attending Provider Active Start: October 17, 2023 End: October 17, 2023 Team Status: Active Member Role Status Dates NON STAFF Primary Care Provider Active Team Status: Inactive Member Role Status Dates JOSE Hillman Attending Provider Active Start: October 17, 2023 End: October 17, 2023 NON STAFF Primary Care Provider Active Start: October 17, 2023 End: October 17, 2023 Team Status: Inactive Member Role Status Dates NON STAFF Primary Care Provider Active Start: December 18, 2023 End: December 19, 2023 Cyrus Donovan DO Emergency Provider Active Start: December 18, 2023 End: December 19, 2023 Team Status: Active Member Role Status Dates Chaim Reeder , [employer]-C Primary Care Provider Active Team Status: Inactive Member Role Status Dates Chaim Reeder , [employer]TING [employer]-C Primary Care Provider Active Start: December 20, 2023 End: December 20, 2023 Doug New MD Emergency Provider Active St art: December 20, 2023 End: December 20, 2023 Team Status: Active Member Role Status Dates Chaim Reeder , [employer]TING [employer]-C Primary Care Provider Active Start: December 22, 2023 Kiya Riggins [employer]-BC Emergency Provider Active Start: December 22, 2023 Shemar Grover MD Admit Provider, Atte nding Provider Active Start: December 22, 2023 Team Status: Inactive Member Role Status Dates Chaim Reeder , [employer]TING [employer]-C Primary Care Provider Active Start: December 22, 2023 End: December 23, 2023 Kiya Riggins , [employer]-BC Emergency Provider Active Start: December 22, 2023 End: December 23, 2023 Shemar Grover MD Admit Provider Active Start: December 22, 2023 End: December 23, 2023 Antonio Nevarez MD Attending Provider Active Start : December 22, 2023 End: December 23, 2023 Russell Kent MD Other Provider Active Start: Dec End: December 23, 2023 Team Status: Inactive Member Role Status Dates Chaim Reeder , [employer]TING [employer]-C Attending Provider Active Start: December 24, 2023 End: December 24, 2023 Goals (unrecognized section and content) Goals may [...] may be documented in an alternate section No data available for this section No data available for this section (unrecognized sect ion and content) No Status Records FoundNo Status Records FoundNo Status Records FoundNo Status Records Found INFORMATION SOURCE (unrecogn ized section and content) DATE CREATED AUTHOR 01/26/2023 [facility] DATE CREATED AUTHOR AUTHOR'S ORGANIZ ATION 12/29/2023 [facility] DATE CREATED AUTHOR AUTHOR'S ORGANIZ ATION 01/05/2024 [facility] DATE CREATED AUTHOR AUTHOR'S ORGANIZ ATION 03/06/2024 [facility] FOR RECORDS PERTAINING TO PATIENTS WHO [...] BE BASED ON THE PRIMARY CLINICAL RECORDS. [facility] [employer] [facility]. provides no warranty or guarantee of the accuracy or completeness of information in this document.
--- NOTE | 2024-03-30 03:43 | ED_ITS ---
HPI HPI - Back Pain/Injury General Chief Complaint: Back Pain/Injury Stated Complaint: back pain Time Seen by Provider: 03/30/24 03:40 Source: patient Mode of arrival: walk-in Limitations: no limitations History of Present Illness HPI Narrative: patient presents complaining of right lower back pain. Believes he pulled a muscle lifting 5lb water bottle. No associated chest pain. Not short of breath. No fever past history of right sided nephrectomy for renal CA 7 years ago. Did have abdominal pain and vomited once. no longer nauseated Related Data Home Medications ?Medication ?Instructions ?Recorded ?Confirmed atorvastatin 40 mg tablet 40 mg PO DAILY 03/19/23 03/30/24 buspirone 10 mg tablet 10 mg PO DAILY 03/19/23 03/30/24 dapagliflozin propanediol 10 mg 10 mg PO DAILY 03/19/23 03/30/24 tablet (Farxiga) gabapentin 600 mg tablet 600 mg PO Q12H PRN pain 03/19/23 03/30/24 hydrochlorothiazide 25 mg tablet 25 mg PO DAILY 03/19/23 03/30/24 insulin aspart U-100 100 unit/mL 7 unit subcut DAILY 03/19/23 03/30/24 subcutaneous solution insulin glargine 100 unit/mL (3 70 unit subcut .meals 03/19/23 03/30/24 mL) subcutaneous pen (Lantus Solostar U-100 Insulin) lisinopril 5 mg tablet 5 mg PO DAILY 03/19/23 03/30/24 metoprolol succinate 25 mg 25 mg PO DAILY 03/19/23 03/30/24 tablet,extended release 24 hr ropinirole 0.25 mg tablet 0.25 mg PO DAILY 03/19/23 03/30/24 tizanidine 4 mg tablet 4 mg PO DAILY PRN pain 03/19/23 03/30/24 Previous Rx's ?Medication ?Instructions ?Recorded hyoscyamine sulfate 0.125 mg 0.125 mg PO Q6H PRN abdominal pain 04/23/23 tablet (Levsin) #12 tabs ondansetron 4 mg disintegrating 4 mg PO Q6H PRN nausea and 04/23/23 tablet vomiting #12 tabs ketorolac 10 mg tablet 10 mg PO TID PRN pain #6 tabs 09/04/23 methocarbamol 750 mg tablet 750 mg PO TID PRN pain #20 tabs 09/04/23 Allergies Allergy/AdvReac Type Severity Reaction Status Date / Time No Known Drug Allergies Allergy Verified 03/30/24 03:11 Opioid HPI Opioid Management Most Recent Opioid Data: Last Pain Scale 6 03/30/24 05:31 03/30/24 Last ED Pain Assessment 03/30/24 05:31 Review of Systems ROS Status of ROS 10 or more systems reviewed and unremark able except as noted in history and below PFSH PFSH Medical History (Updated 03/30/24 @ 06:12 by Truman Katz MD) Diabetes ?E11.9 - Type 2 diabetes mellitus without complications (ICD-10) Surgical History (Updated 11/12/22 @ 02:23 by Diana Mcghee) History of kidney surgery ?Z98.890 - Other specified postprocedural states (ICD-10) History of cholecystectomy ?Z90.49 - Acquired absence of other specified parts of digestive tract (ICD- 10) History of appendectomy ?Z90.49 - Acquired absence of other specified parts of digestive tract (ICD- 10) Social History Smoking status: Current every day smoker Little interest or pleasure in doing things: not at all Feeling down, depressed, or hopeless: not at all Exam Constitutional Vital Signs, click to edit/add: Last Vital Signs Temp 98.3 F 03/30/24 03:06 Pulse 86 03/30/24 05:30 Resp 18 03/30/24 05:30 BP 146/92 H 03/30/24 05:30 Pulse Ox 100 03/30/24 05:30 O2 Del Method Room Air 03/30/24 05:30 Common normals: no apparent distress, average body habitus, oriented x3, no limitations, healthy appearing, alert and well nourished [facility] Common normals: normocephalic and head/scalp atraumatic Respiratory Common normals: normal respiratory effort, no retractions, no use of accessory muscles and clear to auscultation bilaterally Cardio Common normals: regular rate, regular rhythm, S1 normal heart sound and S2 normal heart sound GI Common normals: Normal to inspection, nondistended, normoactive bowel sounds present and soft to palpation Other: mild epigastric tenderness. Back & Pelvis General back: CVA tenderness CVA tenderness: right Extremity Common normals: normal to inspection and full ROM Neuro Common normals: oriented x3, CN's II-XII intact bilaterally, moves all extremities and no focal motor deficits Psych Appearance: grossly normal Course Vital Signs Vital signs: Vital Signs Temperature 98.3 F 03/30/24 03:06 Pulse Rate 83 03/30/24 03:06 Respiratory Rate 16 03/30/24 03:06 Blood Pressure 138/93 H 03/30/24 03:06 Pulse Oximetry 97 03/30/24 03:06 Oxygen Delivery Method Room Air 03/30/24 03:06 Temperature 98.3 F 03/30/24 03:06 Pulse Rate 86 03/30/24 05:30 Respiratory Rate 18 03/30/24 05:30 Blood Pressure 146/92 H 03/30/24 05:30 Pulse Oximetry 100 03/30/24 05:30 Oxygen Delivery Method Room Air 03/30/24 05:30 MDM - Back Pain/Injury MDM Narrative Medical decision making narrative: patient presents complaining of right lower back pain for past 3 days interfering with sleep. Also had abdominal pain and vomited once. Exam with right CVA and epigastric tenderness. labs with elevated lipase and CT with findings of pancreatic inflammation. Patient informed of the finding of pancreatitis and the plan to hospitalize him for at least 24 hours . Patient does not want to stay in the hospital and is requesting discharge. Provided a note for work and discharged with instructions for close follow up Lab Data Labs: Lab Results 03/30/24 Range/Units 04:30 WBC 9.7 (4.0-11.0) 10^3/uL RBC 5.06 (4.70-6.10) 10^6/uL Hgb 15.2 (14.0-18.0) g/dL Hct 43.9 (42.0-54.0) % MCV 86.8 (80.0-94.0) fL MCH 30.0 (25.9-34.0) pg MCHC 34.6 (29.9-35.2) g/dL RDW 12.6 (11.0-15.0) % Plt Count 193 (150-450) 10^3/uL MPV 9.9 (9.5-13.5) fL Neut % (Auto) 66.7 (43.0-75.0) % Lymph % (Auto) 26.2 (20.5-60.0) % [place] % (Auto) 6.3 (1.7-12.0) % Eos % (Auto) 0.0 L (0.9-7.0) % Baso % (Auto) 0.5 (0.2-2.0) % Neut # (Auto) 6.5 (1.4-6.5) 10^3/uL Lymph # (Auto) 2.6 (1.2-3.8) 10^3/uL [place] # (Auto) 0.6 (0.3-0.8) 10^3/uL Eos # (Auto) 0.0 (0.0-0.7) 10^3/uL Baso # (Auto) 0.1 (0.0-0.1) 10^3/uL Abs Immat Gran (auto) 0.03 (0.00-0.03) 10^3/uL Imm/Tot Granulo (auto) 0.3 (0.0-0.5) % Sodium 140 (136-145) mmol/L Potassium 4.2 (3.5-5.1) mmol/L Chloride 106 (98-107) mmol/L Carbon Dioxide 25.8 (21.0-32.0) mmol/L Anion Gap 12.4 BUN 19.0 H (7.0-18.0) mg/dL Creatinine 1.30 (0.70-1.30) mg/dL Est GFR ( Amer) >60 (>=60 mL/min/1.73m^2) Est GFR (Non-Af Amer) 57 L (>=60 mL/min/1.73m^2) BUN/Creatinine Ratio 14.6 Glucose 142 H (74-106) mg/dL Lactate 0.9 (0.4-2.0) mmol/L Calcium 9.3 (8.5-10.1) mg/dL Total Bilirubin 0.4 (0.2-1.0) mg/dL AST 14 L (15-37) U/L ALT 33 (16-63) U/L Alkaline Phosphatase 97 (46-116) U/L Total Protein 7.1 (6.4-8.2) g/dL Albumin 3.4 (3.4-5.0) g/dL Globulin 3.7 g/dL Albumin/Globulin Ratio 0.9 Lipase 697.0 H (16.0-77.0) U/L Imaging Data Abdominal x-ray: Radiologist's impression: ITS Impressions Abdomen/Pelvis CT 03/30/24 03:46 IMPRESSION: Asymmetric enlargement and inflammatory changes of the pancreatic head, consider acute pancreatitis Electronically authenticated by: DAYNA WOODS Date: 03/30/2024 05:44 Discharge Plan Discharge Chief Complaint: Back Pain/Injury Clinical Impression: Strain of lumbar region, Pancreatitis Patient Disposition: Home, Self-Care Prescriptions / Home Meds: No Action hyoscyamine sulfate [Levsin] 0.125 mg tablet 0.125 mg PO Q6H PRN (Reason: abdominal pain) Qty: 12 0RF ondansetron 4 mg tablet,disintegrating 4 mg PO Q6H PRN (Reason: nausea and vomiting) Qty: 12 0RF atorvastatin 40 mg tablet 40 mg PO DAILY buspirone 10 mg tablet 10 mg PO DAILY dapagliflozin propanediol [Farxiga] 10 mg tablet 10 mg PO DAILY gabapentin 600 mg tablet 600 mg PO Q12H PRN (Reason: pain) hydrochlorothiazide 25 mg tablet 25 mg PO DAILY lisinopril 5 mg tablet 5 mg PO DAILY metoprolol succinate 25 mg tablet extended release 24 hr 25 mg PO DAILY ropinirole 0.25 mg tablet 0.25 mg PO DAILY tizanidine 4 mg tablet 4 mg PO DAILY PRN (Reason: pain) insulin glargine [Lantus Solostar U-100 Insulin] 100 unit/mL (3 mL) insulin pen 70 unit SUBCUT .meals Rx Instructions: Sliding Scale insulin aspart U-100 100 unit/mL solution 7 unit subcut DAILY ketorolac 10 mg tablet 10 mg PO TID PRN (Reason: pain) Qty: 6 0RF methocarbamol 750 mg tablet 750 mg PO TID PRN (Reason: pain) Qty: 20 0RF Print Language: South Korean Instructions: Pancreatitis (ED), Muscle Strain (ED) Additional Instructions: follow up with your doctor tomorrow. Return to ER for increasing pain Referrals: [facility] [Primary Care Provider] - 1 week
--- NOTE | 2024-03-30 03:46 | CT_ITS ---
[address] [address] Patient Name: GENE DE LA PAZ MRN: [id number] date: 1970 Sex: M Assigned Patient Location: ER Current Patient Location: Accession/Order Number: [id number] Exam Date: 03/30/2024 05:15 Report Date: 03/30/2024 05:44 At the request of: ELSA MCGEE Procedure: CT abdomen pelvis w con EXAMINATION: CT abdomen pelvis w con HISTORY: right CVA pain. Past nephrectomy for CA COMPARISON: No relevant comparison available. TECHNIQUE: CT images were created with IV contrast. Axial, Coronal, and Sagittal images. Dose reduction techniques were achieved by using automated exposure control and/or adjustment of mA and/or kV according to patient size and/or use of iterative reconstruction technique. FINDINGS: LUNG BASES: No visible pulmonary or pleural disease. LIVER: No enlargement, atrophy, abnormal density, or significant focal lesion. BILIARY: Surgical clips from cholecystectomy PANCREAS: Enlargement of the pancreatic head with mild mesenteric stranding SPLEEN: No enlargement or focal lesion. ADRENALS: No mass or enlargement. KIDNEYS: Remote right nephrectomy. Normal left kidney with no obstructive uropathy BOWEL/MESENTERY: No visible mass, obstruction, or bowel wall thickening. AORTA/VASCULAR: No aortic aneurysm. Moderate calcific atherosclerosis RETROPERITONEUM: No mass or adenopathy. LYMPH NODES: No adenopathy. URINARY BLADDER: No visible focal wall thickening, lesion, or calculus. PELVIC ORGANS: No visible mass. Pelvic organs appropriate for patient age. ABDOMINAL WALL: No mass or hernia. BONES: No bony lesion or fracture. OTHER: Negative. CT/CT abdomen pelvis w con IMPRESSION: Asymmetric enlargement and inflammatory changes of the pancreatic head, consider acute pancreatitis Electronically authenticated by: DAYNA WOODS Date: 03/30/2024 05:44
[2024-03-30] MEDS: ORPHENADRINE 60 MG/ 2 ML VIAL IV (04:43)
[2024-03-30 04:44] LABS: Basophils Absolute Auto 0.1 10^3/uL (0.0-0.1); Basophils Percent Auto 0.5 % (0.2-2.0); Hematocrit 43.9 % (42.0-54.0); Hemoglobin 15.2 g/dL (14.0-18.0); Immature Granulocytes Abs Auto 0.03 10^3/uL (0.00-0.03); Immature Granulocytes Pct Auto 0.3 % (0.0-0.5); Lymphocytes Absolute Auto 2.6 10^3/uL (1.2-3.8); Lymphocytes Percent Auto 26.2 % (20.5-60.0); Mean Corpuscular HGB Conc 34.6 g/dL (29.9-35.2); Mean Corpuscular Volume 86.8 fL (80.0-94.0); Mean Platelet Volume 9.9 fL (9.5-13.5); Monocytes Absolute Auto 0.6 10^3/uL (0.3-0.8); Monocytes Percent Auto 6.3 % (1.7-12.0); Neutrophils Absolute Auto 6.5 10^3/uL (1.4-6.5); Neutrophils Percent Auto 66.7 % (43.0-75.0); Platelet Count 193 10^3/uL (150-450); Red Blood Count 5.06 10^6/uL (4.70-6.10); Red Cell Distribution Width 12.6 % (11.0-15.0); White Blood Count 9.7 10^3/uL (4.0-11.0)
[2024-03-30 05:00] LABS: Alanine Aminotransferase 33 U/L (16-63); Albumin Globulin Ratio 0.9; Albumin Level 3.4 g/dL (3.4-5.0); Alkaline Phosphatase 97 U/L (46-116); Anion Gap 12.4; Aspartate Amino Transferase 14 U/L (15-37); BUN Creatinine Ratio 14.6; Bilirubin Total 0.4 mg/dL (0.2-1.0); Calcium 9.3 mg/dL (8.5-10.1); Carbon Dioxide 25.8 mmol/L (21.0-32.0); Chloride 106 mmol/L (98-107); Estimated GFR (African America >60 (>=60 mL/min/1.73m^2); Estimated GFR (Non-African Ame 57 (>=60 mL/min/1.73m^2); Globulin 3.7 g/dL; Glucose 142 mg/dL (74-106); Potassium 4.2 mmol/L (3.5-5.1); Sodium 140 mmol/L (136-145); Total Protein 7.1 g/dL (6.4-8.2)
[2024-03-30 05:03] LABS: Lactate/Lactic Acid 0.9 mmol/L (0.4-2.0)
--- NOTE | 2024-03-30 05:20 | PC.NURSE ---
Patient has pain ust right of mid spine area. Certain movements increase the pain.
[2024-03-30 05:30] VITALS: BP 146/92; PULSE 86; O2SAT 100
[2024-03-30 06:24] VITALS: BP 142/98; PULSE 84; O2SAT 99
== END 2024-03-30 06:26 | disposition home or self-care (01) ==
PROVIDERS: Emergency Provider Internal Medicine
DX: K85.90 Acute pancreatitis without necrosis or infection, unspecified (principal); S39.012A Strain of muscle, fascia and tendon of lower back, initial encounter; X50.0XXA Overexertion from strenuous movement or load, initial encounter; Z85.528 Personal history of other malignant neoplasm of kidney; Z90.5 Acquired absence of kidney; Z90.49 Acquired absence of other specified parts of digestive tract; F17.200 Nicotine dependence, unspecified, uncomplicated
CPT/HCPCS: 36415; 74177; 80053; 83605; 83690; 85025; 96374; 99285; J2360; Q9967

== ENCOUNTER 2024-05-10 10:49 | Emergency (ER) | payer OTHER, SELFPAY ==
[2024-05-10] VITALS (31 sets, daily range): BP systolic 124–164; BP diastolic 79–106; PULSE 79–98; TEMP 36.7; O2SAT 94–99; BMI 27.2
--- NOTE | 2024-05-10 11:10 | ED_ITS ---
HPI HPI - General Adult General Chief complaint: Chest Pain Stated complaint: CHEST PRESSURE, L FACIAL PAIN , L ARM PAIN Time Seen by Provider: 05/10/24 11:10 Source: patient Mode of arrival: walk-in History of Present Illness HPI narrative: This patient is here complaining of chest disc for. Historically he was at a different hospital previously for similar episode. He states that they did cardiac enzymes and told him he did not have a heart attack. They did request to get a scheduled outpatient stress test but he has not heard back from the hospital in [place]. Risk factors include diabetes cholesterol smoking male sex age. He says it feels like a heavy pressure over his chest a level 3/10. He has a tingling feeling in his left hand. He had slight nausea without vomiting. There is no tearing or ripping sensation. They gave him nitroglycerin to use at home but he did not use any, he decided come the hospital instead. He has no shortness of breath. He did take baby aspirin and has been taking aspirin every day. Related Data Home Medications ?Medication ?Instructions ?Recorded ?Confirmed atorvastatin 40 mg tablet 80 mg PO DAILY 03/19/23 05/10/24 buspirone 10 mg tablet 10 mg PO DAILY 03/19/23 05/10/24 dapagliflozin propanediol 10 mg 10 mg PO DAILY 03/19/23 05/10/24 tablet (Farxiga) gabapentin 600 mg tablet 600 mg PO Q12H PRN pain 03/19/23 05/10/24 hydrochlorothiazide 25 mg tablet 25 mg PO DAILY 03/19/23 05/10/24 insulin aspart U-100 100 unit/mL 7 unit subcut DAILY 03/19/23 05/10/24 subcutaneous solution insulin glargine 100 unit/mL (3 70 unit subcut DAILY 03/19/23 05/10/24 mL) subcutaneous pen (Lantus Solostar U-100 Insulin) lisinopril 5 mg tablet 5 mg PO DAILY 03/19/23 05/10/24 metoprolol succinate 25 mg 25 mg PO DAILY 03/19/23 05/10/24 tablet,extended release 24 hr ropinirole 0.25 mg tablet 0.25 mg PO DAILY 03/19/23 05/10/24 tizanidine 4 mg tablet 4 mg PO DAILY PRN pain 03/19/23 05/10/24 famotidine 20 mg tablet 20 mg PO DAILY PRN heart burn 05/10/24 05/10/24 nitroglycerin 0.4 mg sublingual 0.4 mg sublingual Q5M PRN chest 05/10/24 05/10/24 tablet pain venlafaxine 225 mg tablet,extended 225 mg PO DAILY 05/10/24 05/10/24 release 24 hr Allergies Allergy/AdvReac Type Severity Reaction Status Date / Time No Known Drug Allergies Allergy Verified 03/30/24 03:11 Opioid HPI Opioid Management Most Recent Opioid Data: Last Pain Scale 6 03/30/24 05:31 03/30/24 PFSH PFSH Medical History (Updated 05/10/24 @ 15:11 by Sathish Justin MD) Diabetes ?E11.9 - Type 2 diabetes mellitus without complications (ICD-10) Surgical History (Updated 11/12/22 @ 02:23 by Diana Mcghee) History of kidney surgery ?Z98.890 - Other specified postprocedural states (ICD-10) History of cholecystectomy ?Z90.49 - Acquired absence of other specified parts of digestive tract (ICD- 10) History of appendectomy ?Z90.49 - Acquired absence of other specified parts of digestive tract (ICD- 10) Social History Smoking status: Current every day smoker Little interest or pleasure in doing things: not at all Feeling down, depressed, or hopeless: not at all Exam Narrative Exam Narrative: Seen immediately on arrival with stat twelve-lead EKG done showing no acute STEMI at this time. He is awake alert good historian says his discomfort is level 3. Neck is soft and supple with no meningeal irritation. He does not have any vomiting at this time. Airway is widely patent. His conjunctiva is moist and pink with no evidence of pallor or anemia. His lungs were clear with no wheeze or rales. Heart sounds are normal rate and rhythm. No S3-S4 or murmur. Chest wall is not reproducibly tender. His extremities do not show any evidence of edema phlebitis or cellulitis. He has no abdominal pain or discomfort. Neurological examination shows no focal neurological findings or deficits. Constitutional Vital Signs, click to edit/add: Last Vital Signs Temp 98.0 F 05/10/24 10:55 Pulse 92 H 12/29/24 10:55 Resp 18 05/10/24 10:55 BP 151/94 H 05/10/24 10:55 Pulse Ox 99 05/10/24 10:55 O2 Del Method Room Air 05/10/24 10:55 Course Vital Signs Vital signs: Vital Signs Temperature 98.0 F 05/10/24 10:55 Pulse Rate 92 H 05/10/24 10:55 Respiratory Rate 18 05/10/24 10:55 Blood Pressure 151/94 H 05/10/24 10:55 Pulse Oximetry 99 05/10/24 10:55 Oxygen Delivery Method Room Air 05/10/24 10:55 Temperature 98.0 F 05/10/24 10:55 Pulse Rate 92 H 05/10/24 10:55 Respiratory Rate 18 05/10/24 10:55 Blood Pressure 151/94 H 05/10/24 10:55 Pulse Oximetry 99 05/10/24 10:55 Oxygen Delivery Method Room Air 05/10/24 10:55 Medical Decision Making MDM Narrative Medical decision making narrative: This patient has nearly all cardiovascular risk factors for coronary disease. Cardiac enzymes EKG were all done initially. The first set of enzyme was negative. It was repeated in approximately 2 hours from his arrival and the second troponin is also negative. 3 serial EKGs show sinus rhythm with pulmonary disease and incomplete right bundle branch block. We did call for EKGs from [place] and there is no evolutionary change from that study. His chest x-ray here is normal. Upon obtaining this history with his risk factors we did give him nitroglycerin, he had taken his aspirin previously. He was given MS. He was evaluated several times while here in the ER and he remained stable. Our local hospitalist felt that would be more appropriate for him to be at a tertiary facility with cardiology backup and so we did call [facility] this is where he was to have a stress test done. I spoke with the hospitalist who agrees that he should be admitted for prompt evaluation we will transfer to that facility under stable condition Discharge Plan Discharge Chief Complaint: Chest Pain Clinical Impression: Acute chest pain Patient Disposition: [facility] Time of Disposition Decision: 15:10 Mode of Transportation: EMS Prescriptions / Home Meds: No Action atorvastatin 40 mg tablet 80 mg PO DAILY buspirone 10 mg tablet 10 mg PO DAILY dapagliflozin propanediol [Farxiga] 10 mg tablet 10 mg PO DAILY gabapentin 600 mg tablet 600 mg PO Q12H PRN (Reason: pain) hydrochlorothiazide 25 mg tablet 25 mg PO DAILY lisinopril 5 mg tablet 5 mg PO DAILY metoprolol succinate 25 mg tablet extended release 24 hr 25 mg PO DAILY ropinirole 0.25 mg tablet 0.25 mg PO DAILY tizanidine 4 mg tablet 4 mg PO DAILY PRN (Reason: pain) insulin glargine [Lantus Solostar U-100 Insulin] 100 unit/mL (3 mL) insulin pen 70 unit SUBCUT DAILY insulin aspart U-100 100 unit/mL solution 7 unit subcut DAILY Rx Instructions: sliding scale famotidine 20 mg tablet 20 mg PO DAILY PRN (Reason: heart burn ) nitroglycerin 0.4 mg tablet, sublingual 0.4 mg sublingual Q5M PRN (Reason: chest pain) venlafaxine 225 mg tablet extended release 24hr 225 mg PO DAILY Print Language: Chinese Referrals: [facility] [Primary Care Provider] - 1 week
--- NOTE | 2024-05-10 11:11 | ECG_ITS ---
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
--- NOTE | 2024-05-10 11:14 | XR_ITS ---
[address] [address] Patient Name: GENE DE LA PAZ MRN: [id number] date: 1970 Sex: M Assigned Patient Location: ER Current Patient Location: ER Accession/Order Number: [id number] Exam Date: 05/10/2024 11:28 Report Date: 05/10/2024 12:22 At the request of: YUN TREVIZO Procedure: XR chest 1V EXAM: XR chest 1V HISTORY: Chest pain COMPARISON: 12/04/2022 TECHNIQUE: AP upright chest x-ray FINDINGS: Lungs clear without infiltrate, edema or new density. Normal heart size and mediastinal contour for technique. No pleural effusion or pneumothorax. XR/XR chest 1V IMPRESSION: Stable chest x-ray, no acute findings. Clear lungs. Electronically authenticated by: ELINA LEONARD Date: 05/10/2024 12:22
[2024-05-10] MEDS: NITROGLYCERIN 0.1 MG/HR PATCH.TD24 1 PATCH TD (11:21)
[2024-05-10] MEDS: MORPHINE SULFATE 2 MG/ML SYRINGE IV (11:24)
[2024-05-10 11:30] LABS: Basophils Percent Auto 0.5 % (0.2-2.0); Hematocrit 46.5 % (42.0-54.0); Hemoglobin 15.7 g/dL (14.0-18.0); Immature Granulocytes Abs Auto 0.03 10^3/uL (0.00-0.03); Immature Granulocytes Pct Auto 0.4 % (0.0-0.5); Lymphocytes Absolute Auto 2.7 10^3/uL (1.2-3.8); Lymphocytes Percent Auto 33.7 % (20.5-60.0); Mean Corpuscular HGB Conc 33.8 g/dL (29.9-35.2); Mean Corpuscular Hemoglobin 29.9 pg (25.9-34.0); Mean Corpuscular Volume 88.6 fL (80.0-94.0); Mean Platelet Volume 10.2 fL (9.5-13.5); Monocytes Absolute Auto 0.8 10^3/uL (0.3-0.8); Monocytes Percent Auto 9.2 % (1.7-12.0); Neutrophils Absolute Auto 4.6 10^3/uL (1.4-6.5); Neutrophils Percent Auto 56.2 % (43.0-75.0); Platelet Count 184 10^3/uL (150-450); Red Blood Count 5.25 10^6/uL (4.70-6.10); Red Cell Distribution Width 13.1 % (11.0-15.0); White Blood Count 8.1 10^3/uL (4.0-11.0)
[2024-05-10 11:48] LABS: Prothrombin Time 9.6 sec (9.0-11.6)
[2024-05-10 11:50] LABS: Troponin I High Sensitivity 5.1 pg/mL (4.0-76.1)
[2024-05-10 11:55] LABS: Alanine Aminotransferase 39 U/L (16-63); Albumin Globulin Ratio 1.1; Albumin Level 3.8 g/dL (3.4-5.0); Alkaline Phosphatase 89 U/L (46-116); Anion Gap 10.7; Aspartate Amino Transferase 17 U/L (15-37); BUN Creatinine Ratio 26.1; Bilirubin Total 0.4 mg/dL (0.2-1.0); Calcium 9.4 mg/dL (8.5-10.1); Carbon Dioxide 27.8 mmol/L (21.0-32.0); Chloride 106 mmol/L (98-107); Estimated GFR (African America >60 (>=60 mL/min/1.73m^2); Estimated GFR (Non-African Ame >60 (>=60 mL/min/1.73m^2); Globulin 3.6 g/dL; Glucose 111 mg/dL (74-106); Potassium 4.5 mmol/L (3.5-5.1); Sodium 140 mmol/L (136-145); Total Protein 7.4 g/dL (6.4-8.2)
[2024-05-10 11:56] LABS: INR <0.93
[2024-05-10 13:43] LABS: Troponin I High Sensitivity 6.4 pg/mL (4.0-76.1)
--- NOTE | 2024-05-10 13:49 | ECG_ITS ---
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
--- NOTE | 2024-05-10 13:49 | ECG_ITS ---
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
--- NOTE | 2024-05-10 15:30 | PC.NURSE ---
Pt is refusing to take an ambulance to [facility] at this time, would like stepson to take him directly there. Dr Justin highly advising that should not be done. IV will be removed.
--- NOTE | 2024-05-10 16:03 | PC.NURSE ---
phone report given to RSOENDO Barnett at [facility].
== END 2024-05-10 15:54 | disposition short-term general hospital (02) ==
PROVIDERS: Emergency Provider Emergency Medicine Emergency Medical Services
DX: R07.9 Chest pain, unspecified (principal); E11.9 Type 2 diabetes mellitus without complications; Z79.82 Long term (current) use of aspirin; Z79.4 Long term (current) use of insulin; Z90.49 Acquired absence of other specified parts of digestive tract; F17.200 Nicotine dependence, unspecified, uncomplicated
CPT/HCPCS: 36415; 71045; 80053; 83880; 84484; 85025; 85610; 93005; 96374; 99285; J2270

== ENCOUNTER 2024-06-18 01:33 | Emergency (ER) | payer OTHER, SELFPAY ==
[2024-06-18 01:36] VITALS: BP 175/80; PULSE 99; TEMP 36.7; O2SAT 99; BMI 27.9
--- NOTE | 2024-06-18 01:42 | XR_ITS ---
The [address] [address] Patient Name: GENE DE LA PAZ MRN: [id number] date: 1970 Sex: M Assigned Patient Location: ER Current Patient Location: ER Accession/Order Number: [id number] Exam Date: 06/18/2024 01:52 Report Date: 06/18/2024 02:05 At the request of: MINA SAWYER Procedure: XR ribs LT min 3V w CXR1V EXAM: XR ribs LT min 3V w CXR1V HISTORY: fall COMPARISON: Prior chest x-ray 05/10/2024. TECHNIQUE: One view the chest and 4 views of the left ribs. FINDINGS: No rib fractures are identified. Cardiomediastinal silhouette and pulmonary vascularity are within normal limits. The lungs and the costophrenic angles are clear. XR/XR ribs LT min 3V w CXR1V IMPRESSION: 1. No evidence of left rib fracture. 2. No acute cardiopulmonary disease. Electronically authenticated by: KIANA ROSSI Date: 06/18/2024 02:05
--- NOTE | 2024-06-18 01:44 | ED_ITS ---
HPI HPI - Fall General Chief Complaint: Fall Stated Complaint: FALL Time Seen by Provider: 06/18/24 01:34 History of Present Illness HPI Narrative: 53-year-old male presents for left lateral rib pain. About an hour ago he slipped and fell on ice. He landed on this area and did not sustain any other injuries. He does not complain of shortness of breath or low back pain or headache or neck pain. He has broken ribs on the contralateral side in the past. Related Data Home Medications ?Medication ?Instructions ?Recorded ?Confirmed atorvastatin 40 mg tablet 80 mg PO DAILY 03/19/23 05/10/24 buspirone 10 mg tablet 10 mg PO DAILY 03/19/23 05/10/24 dapagliflozin propanediol 10 mg 10 mg PO DAILY 03/19/23 05/10/24 tablet (Farxiga) gabapentin 600 mg tablet 600 mg PO Q12H PRN pain 03/19/23 05/10/24 hydrochlorothiazide 25 mg tablet 25 mg PO DAILY 03/19/23 05/10/24 insulin aspart U-100 100 unit/mL 7 unit subcut DAILY 03/19/23 05/10/24 subcutaneous solution insulin glargine 100 unit/mL (3 70 unit subcut DAILY 03/19/23 05/10/24 mL) subcutaneous pen (Lantus Solostar U-100 Insulin) lisinopril 5 mg tablet 5 mg PO DAILY 03/19/23 05/10/24 metoprolol succinate 25 mg 25 mg PO DAILY 03/19/23 05/10/24 tablet,extended release 24 hr ropinirole 0.25 mg tablet 0.25 mg PO DAILY 03/19/23 05/10/24 tizanidine 4 mg tablet 4 mg PO DAILY PRN pain 03/19/23 05/10/24 famotidine 20 mg tablet 20 mg PO DAILY PRN heart burn 05/10/24 05/10/24 nitroglycerin 0.4 mg sublingual 0.4 mg sublingual Q5M PRN chest 05/10/24 05/10/24 tablet pain venlafaxine 225 mg tablet,extended 225 mg PO DAILY 05/10/24 05/10/24 release 24 hr Allergies Allergy/AdvReac Type Severity Reaction Status Date / Time No Known Drug Allergies Allergy Verified 06/18/24 01:40 Opioid HPI Opioid Management Most Recent Pain and Opioid Data: Last Pain Scale 8 06/18/24 01:46 06/18/24 Review of Systems ROS Narrative A ten point review of systems is negative except as noted above. PFSH PFSH Medical History (Updated 06/18/24 @ 02:15 by Pepe Kauffman MD) Diabetes ?E11.9 - Type 2 diabetes mellitus without complications (ICD-10) Surgical History (Updated 11/12/22 @ 02:23 by Diana Mcghee) History of kidney surgery ?Z98.890 - Other specified postprocedural states (ICD-10) History of cholecystectomy ?Z90.49 - Acquired absence of other specified parts of digestive tract (ICD- 10) History of appendectomy ?Z90.49 - Acquired absence of other specified parts of digestive tract (ICD- 10) Social History Smoking status: Current every day smoker Little interest or pleasure in doing things: not at all Feeling down, depressed, or hopeless: not at all Exam Narrative Exam Narrative: Nurses note and vital signs reviewed and patient is not hypoxic. General: The patient appears well and in no apparent distress. Skin: Warm, dry, no pallor noted. There is no rash noted. Head: Normocephalic, atraumatic Eye: Normal conjunctiva, no drainage Ears, Nose, Mouth, and Throat: oral mucosa is moist. Nares patent. Cardiovascular: Regular Rate and Rhythm Respiratory: Patient is in no distress, no accessory muscle use, lungs are clear to auscultation, no wheezing, rales or rhonchi Back: He has diffuse tenderness in the left posterior lateral rib region. No crepitus or abrasions present. Breath sounds are equal. GI: Soft and nontender Musculoskeletal: All extremity joints have full range of motion Neurological: A&O, normal speech Psychiatric: Cooperative Constitutional Vital Signs, click to edit/add: Last Vital Signs Temp 98.0 F 06/18/24 01:36 Pulse 99 H 06/18/24 01:36 Resp 18 06/18/24 01:36 BP 175/80 H 06/18/24 01:36 Pulse Ox 99 06/18/24 01:36 O2 Del Method Room Air 06/18/24 01:36 Course Vital Signs Vital signs: Vital Signs Temperature 98.0 F 06/18/24 01:36 Pulse Rate 99 H 06/18/24 01:36 Respiratory Rate 18 06/18/24 01:36 Blood Pressure 175/80 H 06/18/24 01:36 Pulse Oximetry 99 06/18/24 01:36 Oxygen Delivery Method Room Air 06/18/24 01:36 Temperature 98.0 F 06/18/24 01:36 Pulse Rate 99 H 06/18/24 01:36 Respiratory Rate 18 06/18/24 01:36 Blood Pressure 175/80 H 06/18/24 01:36 Pulse Oximetry 99 06/18/24 01:36 Oxygen Delivery Method Room Air 06/18/24 01:36 MDM - Fall MDM Narrative Medical decision making narrative: X-rays per radiologist showed no rib fracture or pneumothorax. He was recommended ice and anti-inflammatory. Treatment diagnosis and follow-up were discussed with the patient. Differential Diagnosis Differential diagnosis: Likely other (Rib contusion, rib fracture, pneumothorax) Imaging Data Left rib x-rays: Radiologist's impression: ITS Impressions Ribs X-Ray 06/18/24 01:42 IMPRESSION: 1. No evidence of left rib fracture. 2. No acute cardiopulmonary disease. Electronically authenticated by: KIANA ROSSI Date: 06/18/2024 02:05 Discharge Plan Discharge Chief Complaint: Fall Clinical Impression: Contusion of rib on left side Patient Disposition: Home, Self-Care Time of Disposition Decision: 02:15 Condition: Good Mode of Transportation: Private Vehicle Prescriptions / Home Meds: No Action atorvastatin 40 mg tablet 80 mg PO DAILY buspirone 10 mg tablet 10 mg PO DAILY dapagliflozin propanediol [Farxiga] 10 mg tablet 10 mg PO DAILY gabapentin 600 mg tablet 600 mg PO Q12H PRN (Reason: pain) hydrochlorothiazide 25 mg tablet 25 mg PO DAILY lisinopril 5 mg tablet 5 mg PO DAILY metoprolol succinate 25 mg tablet extended release 24 hr 25 mg PO DAILY ropinirole 0.25 mg tablet 0.25 mg PO DAILY tizanidine 4 mg tablet 4 mg PO DAILY PRN (Reason: pain) insulin glargine [Lantus Solostar U-100 Insulin] 100 unit/mL (3 mL) insulin pen 70 unit SUBCUT DAILY insulin aspart U-100 100 unit/mL solution 7 unit subcut DAILY Rx Instructions: sliding scale famotidine 20 mg tablet 20 mg PO DAILY PRN (Reason: heart burn ) nitroglycerin 0.4 mg tablet, sublingual 0.4 mg sublingual Q5M PRN (Reason: chest pain) venlafaxine 225 mg tablet extended release 24hr 225 mg PO DAILY Print Language: Cameroonian Instructions: Rib Contusion (ED) Referrals: [facility] [Primary Care Provider] - 1 week
== END 2024-06-18 02:28 | disposition home or self-care (01) ==
PROVIDERS: Emergency Provider Emergency Medicine
DX: S20.212A Contusion of left front wall of thorax, initial encounter (principal); W00.0XXA Fall on same level due to ice and snow, initial encounter; Z90.49 Acquired absence of other specified parts of digestive tract; F17.200 Nicotine dependence, unspecified, uncomplicated
CPT/HCPCS: 71101; 99283

== ENCOUNTER 2024-06-24 15:32 | Emergency (ER) | payer OTHER, SELFPAY ==
[2024-06-24 15:45] VITALS: BP 113/94; PULSE 104; TEMP 36.8; O2SAT 99; BMI 27.9
--- NOTE | 2024-06-24 16:02 | ED_ITS ---
HPI - URI/Sore Throat General Chief Complaint: Upper Respiratory Infection Stated Complaint: COUGH CONGESTION Time Seen by Provider: 06/24/24 15:36 Source: patient Limitations: no limitations History of Present Illness HPI Narrative: Patient is a 53-year-old male who presents to the emergency department for evaluation of cough. He states over a week ago he had a fall on the ice onto his left side. Records show that he was seen here on 06/18/2024 and had x-rays of the chest and ribs that were unremarkable. He states he continues to have pain in the left chest wall with coughing and is developed upper respiratory symptoms for the past 2 days. Multiple family members are ill with the same. He has had no objective fevers, sputum production or hemoptysis. No vomiting or diarrhea. Records show that he was seen by his primary care provider who prescribed pain medication, muscle relaxant. He states since developing the upper respiratory symptoms, he has pain in the left side with coughing. He presents to the emergency department requesting a cough medication. Related Data Home Medications ?Medication ?Instructions ?Recorded ?Confirmed atorvastatin 40 mg tablet 80 mg PO DAILY 03/19/23 05/10/24 buspirone 10 mg tablet 10 mg PO DAILY 03/19/23 05/10/24 dapagliflozin propanediol 10 mg 10 mg PO DAILY 03/19/23 05/10/24 tablet (Farxiga) gabapentin 600 mg tablet 600 mg PO Q12H PRN pain 03/19/23 05/10/24 hydrochlorothiazide 25 mg tablet 25 mg PO DAILY 03/19/23 05/10/24 insulin aspart U-100 100 unit/mL 7 unit subcut DAILY 03/19/23 05/10/24 subcutaneous solution insulin glargine 100 unit/mL (3 70 unit subcut DAILY 03/19/23 05/10/24 mL) subcutaneous pen (Lantus Solostar U-100 Insulin) lisinopril 5 mg tablet 5 mg PO DAILY 03/19/23 05/10/24 metoprolol succinate 25 mg 25 mg PO DAILY 03/19/23 05/10/24 tablet,extended release 24 hr ropinirole 0.25 mg tablet 0.25 mg PO DAILY 03/19/23 05/10/24 tizanidine 4 mg tablet 4 mg PO DAILY PRN pain 03/19/23 05/10/24 famotidine 20 mg tablet 20 mg PO DAILY PRN heart burn 05/10/24 05/10/24 nitroglycerin 0.4 mg sublingual 0.4 mg sublingual Q5M PRN chest 05/10/24 05/10/24 tablet pain venlafaxine 225 mg tablet,extended 225 mg PO DAILY 05/10/24 05/10/24 release 24 hr Previous Rx's ?Medication ?Instructions ?Recorded aetsfoaxgwiakcl-vlnlqdlacgmwdnt-HJ 10 ml PO Q6H PRN cold symptoms 06/24/24 2 mg-30 mg-10 mg/5 mL oral syrup #200 mL (Bromfed DM) Allergies Allergy/AdvReac Type Severity Reaction Status Date / Time No Known Drug Allergies Allergy Verified 06/24/24 15:47 Review of Systems ROS Constitutional Denies: fever or chills Ears, nose, mouth, and throat Denies: throat pain or nasal congestion Cardiovascular Denies: chest pain Respiratory Reports: cough; Denies: shortness of breath Gastrointestinal Denies: nausea or vomiting Integumentary/Breast Denies: rash Neurological Denies: numbness in extremities or weakness in extremities Hematologic/Lymphatic Denies: easy bruising or easy bleeding PFSH PFSH Medical History (Updated 06/24/24 @ 16:00 by LILIANE Hassan) Diabetes ?E11.9 - Type 2 diabetes mellitus without complications (ICD-10) Surgical History (Updated 11/12/22 @ 02:23 by Diana Mcghee) History of kidney surgery ?Z98.890 - Other specified postprocedural states (ICD-10) History of cholecystectomy ?Z90.49 - Acquired absence of other specified parts of digestive tract (ICD- 10) History of appendectomy ?Z90.49 - Acquired absence of other specified parts of digestive tract (ICD- 10) Social History Smoking status: Current every day smoker Little interest or pleasure in doing things: not at all Feeling down, depressed, or hopeless: not at all Exam Narrative Exam Narrative: Gen.: Awake, alert, in no distress Head: Normocephalic, atraumatic ENT: Moist mucous membranes, bilateral TMs clear, no pharyngeal erythema Respiratory: No respiratory distress, lungs clear bilaterally Cardio: Regular rate and rhythm Extremities: Moves extremities equally Psych: Normal mood and affect Neuro: No focal neuro deficit Skin: Warm, dry, intact Constitutional Vital Signs, click to edit/add: Last Vital Signs Temp 98.2 F 06/24/24 15:45 Pulse 104 H 06/24/24 15:45 Resp 20 06/24/24 15:45 BP 113/94 H 06/24/24 15:45 Pulse Ox 99 06/24/24 15:45 O2 Del Method Room Air 06/24/24 15:45 Course Vital Signs Vital signs: Vital Signs Temperature 98.2 F 06/24/24 15:45 Pulse Rate 104 H 06/24/24 15:45 Respiratory Rate 06/24/24 15:45 Blood Pressure 113/94 H 06/24/24 15:45 Pulse Oximetry 99 06/24/24 15:45 Oxygen Delivery Method Room Air 06/24/24 15:45 Temperature 98.2 F 06/24/24 15:45 Pulse Rate 104 H 06/24/24 15:45 Respiratory Rate 06/24/24 15:45 Blood Pressure 113/94 H 06/24/24 15:45 Pulse Oximetry 99 06/24/24 15:45 Oxygen Delivery Method Room Air 06/24/24 15:45 MDM - URI/Sore Throat MDM Narrative Medical decision making narrative: Patient declined additional chest x-ray or viral testing. Patient had an unremarkable chest x-ray with rib studies done on 06/18/2024. He was given Toradol in the ER for comfort and prescribed Bromfed-DM for home, exam is consistent with viral upper respiratory symptoms, his daughter is also being evaluated for the same. He declined additional testing in the ER. Follow-up PCP and return to the emergency department if symptoms change or worsen SUPERVISED APC VISIT, PHYSICIAN ATTESTATION: Based on the medical record the care appears appropriate. ? Medical Records Attestation: I reviewed the patient's medical records. Discharge Plan Discharge Chief Complaint: Upper Respiratory Infection Clinical Impression: Upper respiratory infection Patient Disposition: Home, Self-Care Time of Disposition Decision: 16:00 Condition: Good Prescriptions / Home Meds: New efpnxlbygbvoute-vpbskwmxv-GG [Bromfed DM] 2-30-10 mg/5 mL syrup 10 ml PO Q6H PRN (Reason: cold symptoms) Qty: 200 0RF No Action atorvastatin 40 mg tablet 80 mg PO DAILY buspirone 10 mg tablet 10 mg PO DAILY dapagliflozin propanediol [Farxiga] 10 mg tablet 10 mg PO DAILY gabapentin 600 mg tablet 600 mg PO Q12H PRN (Reason: pain) hydrochlorothiazide 25 mg tablet 25 mg PO DAILY lisinopril 5 mg tablet 5 mg PO DAILY metoprolol succinate 25 mg tablet extended release 24 hr 25 mg PO DAILY ropinirole 0.25 mg tablet 0.25 mg PO DAILY tizanidine 4 mg tablet 4 mg PO DAILY PRN (Reason: pain) insulin glargine [Lantus Solostar U-100 Insulin] 100 unit/mL (3 mL) insulin pen 70 unit SUBCUT DAILY insulin aspart U-100 100 unit/mL solution 7 unit subcut DAILY Rx Instructions: sliding scale famotidine 20 mg tablet 20 mg PO DAILY PRN (Reason: heart burn ) nitroglycerin 0.4 mg tablet, sublingual 0.4 mg sublingual Q5M PRN (Reason: chest pain) venlafaxine 225 mg tablet extended release 24hr 225 mg PO DAILY Print Language: Egyptian Instructions: Upper Respiratory Infection (ED) Referrals: [facility] [Primary Care Provider] - 1 week
[2024-06-24] MEDS: KETOROLAC TROMETHAMINE 10 MG TABLET PO (16:25)
== END 2024-06-24 16:31 | disposition home or self-care (01) ==
PROVIDERS: Emergency Provider Emergency Medicine
DX: J06.9 Acute upper respiratory infection, unspecified (principal); Z90.49 Acquired absence of other specified parts of digestive tract; F17.200 Nicotine dependence, unspecified, uncomplicated
CPT/HCPCS: 99283

== ENCOUNTER 2024-07-25 15:47 | Emergency (ER) | payer OTHER, SELFPAY ==
[2024-07-25 15:49] VITALS: BP 117/83; PULSE 99; TEMP 36.4; O2SAT 98; BMI 27.9
--- NOTE | 2024-07-25 15:54 | PC.NURSE ---
pt c/o neck pain that radiates to back. Denies any injury or sudden movements.
[2024-07-25] MEDS: ORPHENADRINE 60 MG/ 2 ML VIAL IM (16:27)
[2024-07-25] MEDS: DEXAMETHASONE SOD PHOS 10 MG/ML VIAL PO (16:28)
--- NOTE | 2024-07-25 16:29 | ED_ITS ---
HPI HPI - General Adult General Chief complaint: Back Pain/Injury Stated complaint: STABBING PAIN IN BACK NECK Time Seen by Provider: 07/25/24 15:55 Source: patient Mode of arrival: walk-in Limitations: no limitations History of Present Illness HPI narrative: 53 year old male presents with chief complaint of pain to back of neck and head. patient points to base of occipital region of his scalp and states he had stabbing pain that occurred while at work. he denies any injury and states he had to sit when the pain first began. Patient states he drove home from work picked up his and drove here to the emergency room. He states he has slight photophobia when he was outside. States she has had migraine headaches in the past but did not feel like this was a migraine headache. Patient's vital signs are stable. Blood pressure is normal. he has no signs of neurological deficit. He follows all commands well. Related Data Home Medications ?Medication ?Instructions ?Recorded ?Confirmed atorvastatin 40 mg tablet 80 mg PO DAILY 03/19/23 05/10/24 buspirone 10 mg tablet 10 mg PO DAILY 03/19/23 05/10/24 dapagliflozin propanediol 10 mg 10 mg PO DAILY 03/19/23 05/10/24 tablet (Farxiga) gabapentin 600 mg tablet 600 mg PO Q12H PRN pain 03/19/23 05/10/24 hydrochlorothiazide 25 mg tablet 25 mg PO DAILY 03/19/23 05/10/24 insulin aspart U-100 100 unit/mL 7 unit subcut DAILY 03/19/23 05/10/24 subcutaneous solution insulin glargine 100 unit/mL (3 70 unit subcut DAILY 03/19/23 05/10/24 mL) subcutaneous pen (Lantus Solostar U-100 Insulin) lisinopril 5 mg tablet 5 mg PO DAILY 03/19/23 05/10/24 metoprolol succinate 25 mg 25 mg PO DAILY 03/19/23 05/10/24 tablet,extended release 24 hr ropinirole 0.25 mg tablet 0.25 mg PO DAILY 03/19/23 05/10/24 tizanidine 4 mg tablet 4 mg PO DAILY PRN pain 03/19/23 05/10/24 famotidine 20 mg tablet 20 mg PO DAILY PRN heart burn 05/10/24 05/10/24 nitroglycerin 0.4 mg sublingual 0.4 mg sublingual Q5M PRN chest 05/10/24 05/10/24 tablet pain venlafaxine 225 mg tablet,extended 225 mg PO DAILY 05/10/24 05/10/24 release 24 hr Previous Rx's ?Medication ?Instructions ?Recorded grkxbxnhmyxounm-ncwtcydgpczkatu-TM 10 ml PO Q6H PRN cold symptoms 06/24/24 2 mg-30 mg-10 mg/5 mL oral syrup #200 mL (Bromfed DM) Allergies Allergy/AdvReac Type Severity Reaction Status Date / Time No Known Drug Allergies Allergy Verified 06/24/24 15:47 Opioid HPI Opioid Management Most Recent Opioid Data: Last Pain Scale 8 06/18/24 01:46 06/18/24 Review of Systems ROS Narrative All Systems are negative except as noted/marked.All systems reviewed and otherwise negative Status of ROS 10 or more systems reviewed and unremark able except as noted in history and below PFSH PFS Medical History (Updated 07/25/24 @ 17:18 by Kerry Kang) Diabetes ?E11.9 - Type 2 diabetes mellitus without complications (ICD-10) Surgical History (Updated 11/12/22 @ 02:23 by Diana Mcghee) History of kidney surgery ?Z98.890 - Other specified postprocedural states (ICD-10) History of cholecystectomy ?Z90.49 - Acquired absence of other specified parts of digestive tract (ICD- 10) History of appendectomy ?Z90.49 - Acquired absence of other specified parts of digestive tract (ICD- 10) Social History Smoking status: Current every day smoker Little interest or pleasure in doing things: not at all Feeling down, depressed, or hopeless: not at all Exam Narrative Exam Narrative: A Nurses note and vital signs reviewed and patient is not hypoxic. General: The patient appears well and in no apparent distress. Patient is resting comfortably on cart. Skin: Warm, dry, no pallor noted. There is no rash noted. Head: Normocephalic, atraumatic neck: no pain to palpation or with range of motion Eye: Normal conjunctiva, no drainage, EOMI. PERRL, no nystagmus Ears, Nose, Mouth, and Throat: oral mucosa is moist. Nares patent. Mouth without vesicles. Ear canals patent. Tm's without Erythema Cardiovascular: Regular Rate and Rhythm Respiratory: Patient is in no distress, no accessory muscle use, lungs are clear to auscultation, no wheezing, rales or rhonchi Back: non-tender, no CVA tenderness bilaterally to percussion. GI: Normal bowel sounds, no tenderness to palpation, no masses appreciated. No rebound, guarding, or rigidity noted. Musculoskeletal: The patient has no evidence of calf tenderness, no pitting edema, symmetrical pulses noted bilaterally Neurological: A&O x3, normal speech Psychiatric: Cooperative Constitutional Vital Signs, click to edit/add: Last Vital Signs Temp 97.5 F L 07/25/24 15:49 Pulse 99 H 07/25/24 15:49 Resp 18 07/25/24 15:49 BP 117/83 07/25/24 15:49 Pulse Ox 98 07/25/24 15:49 O2 Del Method Room Air 07/25/24 15:49 Course Vital Signs Vital signs: Vital Signs Temperature 97.5 F L 07/25/24 15:49 Pulse Rate 99 H 07/25/24 15:49 Respiratory Rate 18 07/25/24 15:49 Blood Pressure 117/83 07/25/24 15:49 Pulse Oximetry 98 07/25/24 15:49 Oxygen Delivery Method Room Air 07/25/24 15:49 Temperature 97.5 F L 07/25/24 15:49 Pulse Rate 99 H 07/25/24 15:49 Respiratory Rate 18 07/25/24 15:49 Blood Pressure 117/83 07/25/24 15:49 Pulse Oximetry 98 07/25/24 15:49 Oxygen Delivery Method Room Air 07/25/24 15:49 Medical Decision Making [facility] Narrative Medical decision making narrative: 53 year old male presents with chief complaint of pain to back of neck and head. patient points to base of occipital region of his scalp and states he had stabbing pain that occurred while at work. he denies any injury and states he had to sit when the pain first began. Patient states he drove home from work picked up his and drove here to the emergency room. He states he has slight photophobia when he was outside. States she has had migraine headaches in the past but did not feel like this was a migraine headache. Patient's vital signs are stable. Blood pressure is normal. he has no signs of neurological deficit. He follows all commands well. Noted after an acute episode of posterior head and neck pain. Vital signs are stable here in the emergency room he was medicated with Toradol Decadron and Norflex. Pain has somewhat subsided. Patient is requesting a work note. Head CT was performed today and showed no acute pathology. Impression shows mild generalized brain volume loss consistent with age no acute intracranial hemorrhage mass or infarct minimal mucosal thickening in the para sinus area and clear mastoid air sinuses. Patient was made aware of his results. He is able to be discharged home. Differential Diagnosis Differential Diagnosis: , Migraine, neck pain, headache Medical Records Medical records reviewed: Yes I reviewed the patient's medical records Discharge Plan Discharge Chief Complaint: Back Pain/Injury Clinical Impression: Headache, Neck pain Patient Disposition: Home, Self-Care Time of Disposition Decision: 17:17 Condition: Good Prescriptions / Home Meds: No Action ydyoxlapfaldmoo-lcjtepohb-KI [Bromfed DM] 2-30-10 mg/5 mL syrup 10 ml PO Q6H PRN (Reason: cold symptoms) Qty: 200 0RF atorvastatin 40 mg tablet 80 mg PO DAILY buspirone 10 mg tablet 10 mg PO DAILY dapagliflozin propanediol [Farxiga] 10 mg tablet 10 mg PO DAILY gabapentin 600 mg tablet 600 mg PO Q12H PRN (Reason: pain) hydrochlorothiazide 25 mg tablet 25 mg PO DAILY lisinopril 5 mg tablet 5 mg PO DAILY metoprolol succinate 25 mg tablet extended release 24 hr 25 mg PO DAILY ropinirole 0.25 mg tablet 0.25 mg PO DAILY tizanidine 4 mg tablet 4 mg PO DAILY PRN (Reason: pain) insulin glargine [Lantus Solostar U-100 Insulin] 100 unit/mL (3 mL) insulin pen 70 unit SUBCUT DAILY insulin aspart U-100 100 unit/mL solution 7 unit subcut DAILY Rx Instructions: sliding scale famotidine 20 mg tablet 20 mg PO DAILY PRN (Reason: heart burn ) nitroglycerin 0.4 mg tablet, sublingual 0.4 mg sublingual Q5M PRN (Reason: chest pain) venlafaxine 225 mg tablet extended release 24hr 225 mg PO DAILY Print Language: Turkmen Instructions: General Headache (ED), Acute Neck Pain (ED) Referrals: [facility] [Primary Care Provider] - 1 week
[2024-07-25] MEDS: KETOROLAC TROMETHAMINE 60 MG/2 ML VIAL IM (17:23)
== END 2024-07-25 17:29 | disposition home or self-care (01) ==
PROVIDERS: Emergency Provider Emergency Medicine
DX: R51.9 Headache, unspecified (principal); M54.2 Cervicalgia; Z90.49 Acquired absence of other specified parts of digestive tract; F17.200 Nicotine dependence, unspecified, uncomplicated
CPT/HCPCS: 70450; 96372; 99285; J1100; J1885; J2360

== ENCOUNTER 2024-10-11 22:25 | Emergency (ER) | payer OTHER, SELFPAY ==
[2024-10-11 22:42] VITALS: BP 140/96; PULSE 102; TEMP 36.8; O2SAT 94; BMI 27.9
--- NOTE | 2024-10-11 23:21 | ED.EXTPRO1 ---
HPI - Extremity Problem General Chief complaint: Extremity Problem, Nontraumatic Stated complaint: LUMP Time Seen by Provider: 10/11/24 23:16 Source: patient Mode of arrival: walk-in Limitations: no limitations History of Present Illness HPI Narrative: works at a [employer] and last night burned tip of pinky. Today noticed a fullness of the fat pad of the middle and ring finger and was concern there was a possible infection. No associated pain. denies any pain of the burn pinky. No numbness of weakness. No other complaint Related Data Home Medications ?Medication ?Instructions ?Recorded ?Confirmed atorvastatin 40 mg tablet 80 mg PO DAILY 03/19/23 05/10/24 buspirone 10 mg tablet 10 mg PO DAILY 03/19/23 05/10/24 dapagliflozin propanediol 10 mg 10 mg PO DAILY 03/19/23 05/10/24 tablet (Farxiga) gabapentin 600 mg tablet 600 mg PO Q12H PRN pain 03/19/23 05/10/24 hydrochlorothiazide 25 mg tablet 25 mg PO DAILY 03/19/23 05/10/24 insulin aspart U-100 100 unit/mL 7 unit subcut DAILY 03/19/23 05/10/24 subcutaneous solution insulin glargine 100 unit/mL (3 70 unit subcut DAILY 03/19/23 05/10/24 mL) subcutaneous pen (Lantus Solostar U-100 Insulin) lisinopril 5 mg tablet 5 mg PO DAILY 03/19/23 05/10/24 metoprolol succinate 25 mg 25 mg PO DAILY 03/19/23 05/10/24 tablet,extended release 24 hr ropinirole 0.25 mg tablet 0.25 mg PO DAILY 03/19/23 05/10/24 tizanidine 4 mg tablet 4 mg PO DAILY PRN pain 03/19/23 05/10/24 famotidine 20 mg tablet 20 mg PO DAILY PRN heart burn 05/10/24 05/10/24 nitroglycerin 0.4 mg sublingual 0.4 mg sublingual Q5M PRN chest 05/10/24 05/10/24 tablet pain venlafaxine 225 mg tablet,extended 225 mg PO DAILY 05/10/24 05/10/24 release 24 hr Previous Rx's ?Medication ?Instructions ?Recorded xorkxsfspgjfrct-rwxwnbstveibeii-NR 10 ml PO Q6H PRN cold symptoms 06/24/24 2 mg-30 mg-10 mg/5 mL oral syrup #200 mL (Bromfed DM) Allergies Allergy/AdvReac Type Severity Reaction Status Date / Time No Known Drug Allergies Allergy Verified 06/24/24 15:47 Review of Systems ROS Status of ROS 10 or more systems reviewed and unremarkable except as noted in history and below [facility] Medical History (Updated 10/11/24 @ 23:28 by Truman Katz MD) Diabetes ?E11.9 - Type 2 diabetes mellitus without complications (ICD-10) Surgical History (Updated 11/12/22 @ 02:23 by Diana Mcghee) History of kidney surgery ?Z98.890 - Other specified postprocedural states (ICD-10) History of cholecystectomy ?Z90.49 - Acquired absence of other specified parts of digestive tract (ICD-10) History of appendectomy ?Z90.49 - Acquired absence of other specified parts of digestive tract (ICD-10) Social History Smoking status: Current every day smoker Little interest or pleasure in doing things: not at all Feeling down, depressed, or hopeless: not at all Exam Constitutional Vital Signs, click to edit/add: Last Vital Signs Temp 98.2 F 10/11/24 22:42 Pulse 102 H 10/11/24 22:42 Resp 16 10/11/24 22:42 BP 140/96 H 10/11/24 22:42 Pulse Ox 94 L 10/11/24 22:42 O2 Del Method Room Air 10/11/24 22:42 Common normals: no apparent distress, average body habitus, oriented x3, no limitations, healthy appearing, alert and well nourished [facility] Common normals: normocephalic and head/scalp atraumatic Respiratory Common normals: normal respiratory effort, no retractions, no use of accessory muscles and clear to auscultation bilaterally Cardio Common normals: regular rate, regular rhythm, S1 normal heart sound and S2 normal heart sound Extremity Other: minor burn tip right pinky. site is dry. no erythema or tenderness. FROM of the finger fat pad of right middle and ring finger feel like there is underlying swelling or just puffy. nontender. no erythema. no red streaks and full ROM of the fingers Neuro Common normals: oriented x3, CN's II-XII intact bilaterally, moves all extremities and no focal motor deficits Psych Appearance: grossly normal Course Vital Signs Vital signs: Vital Signs Temperature 98.2 F 10/11/24 22:42 Pulse Rate 102 H 10/11/24 22:42 Respiratory Rate 16 10/11/24 22:42 Blood Pressure 140/96 H 10/11/24 22:42 Pulse Oximetry 94 L 10/11/24 22:42 Oxygen Delivery Method Room Air 10/11/24 22:42 Temperature 98.2 F 10/11/24 22:42 Pulse Rate 102 H 10/11/24 22:42 Respiratory Rate 16 10/11/24 22:42 Blood Pressure 140/96 H 10/11/24 22:42 Pulse Oximetry 94 L 10/11/24 22:42 Oxygen Delivery Method Room Air 10/11/24 22:42 MDM - Extremity (Nontraumatic) MDM Narrative Medical decision making narrative: patient presents with 2nd degree burn to the tip of the right ring finger. Burned on grill at work last PM. He is not concerned about this finger as there is no pain and it is dry. He denies burning his other fingers but has a puffiness of the fat pad of the middle and ring finger that are likely were burned also but minor. Just enough to cause a reaction of puffiness. No evidence of infection . Patient re assured there is no gangrene. Advised to follow up with his doctor for recheck in the next couple of days Discharge Plan Discharge Chief Complaint: Extremity Problem, Nontraumatic Clinical Impression: Burn of two or more fingers of right hand not including thumb Patient Disposition: Home, Self-Care Prescriptions / Home Meds: No Action rzndzaqysepimzl-szddjegdt-IF [Bromfed DM] 2-30-10 mg/5 mL syrup 10 ml PO Q6H PRN (Reason: cold symptoms) Qty: 200 0RF atorvastatin 40 mg tablet 80 mg PO DAILY buspirone 10 mg tablet 10 mg PO DAILY dapagliflozin propanediol [Farxiga] 10 mg tablet 10 mg PO DAILY gabapentin 600 mg tablet 600 mg PO Q12H PRN (Reason: pain) hydrochlorothiazide 25 mg tablet 25 mg PO DAILY lisinopril 5 mg tablet 5 mg PO DAILY metoprolol succinate 25 mg tablet extended release 24 hr 25 mg PO DAILY ropinirole 0.25 mg tablet 0.25 mg PO DAILY tizanidine 4 mg tablet 4 mg PO DAILY PRN (Reason: pain) insulin glargine [Lantus Solostar U-100 Insulin] 100 unit/mL (3 mL) insulin pen 70 unit SUBCUT DAILY insulin aspart U-100 100 unit/mL solution 7 unit subcut DAILY Rx Instructions: sliding scale famotidine 20 mg tablet 20 mg PO DAILY PRN (Reason: heart burn ) nitroglycerin 0.4 mg tablet, sublingual 0.4 mg sublingual Q5M PRN (Reason: chest pain) venlafaxine 225 mg tablet extended release 24hr 225 mg PO DAILY Print Language: Thai Instructions: Second-Degree Burn (ED) Additional Instructions: have fingers rechecked in the next 2-3 days Referrals: [facility] [Primary Care Provider] - 1 week
== END 2024-10-11 23:34 | disposition home or self-care (01) ==
PROVIDERS: Emergency Provider Internal Medicine
DX: T23.231A Burn of second degree of multiple right fingers (nail), not including thumb, initial encounter (principal); X19.XXXA Contact with other heat and hot substances, initial encounter
CPT/HCPCS: 99281

== ENCOUNTER 2025-01-14 21:22 | Emergency (ER) | payer OTHER, SELFPAY ==
--- OUTSIDE RECORDS SUMMARY | 2024-04-30 04:30 | XMS_ITS ---
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 1month f/u. * Medical History: Objective: * Vitals: Assessment: Plan: * Treatment: * Images: * Electronic signature of Gregg Botello CNP on 01/14/2025 at 09:26 PM EDT Sign off status: Pending * Appointment Provider: Estuardo Botello NP Date: 07/01/2023 Generated for Printi ng/Faxing/eTransmitting on: 0 01/14/2025 09:26 PM EDT
--- OUTSIDE RECORDS SUMMARY | 2024-05-19 07:00 | XMS_ITS ---
Author Organization [facility] Address [address] [place] [address] Care Team Providers Care Tool Supervisor Name Role Phone Lynn Botello Primary Care Provider REASON FOR VISIT chest pain Encounters Encounter Location Date Provider Diagnosis [facility] [address] [facility] [place] [address] 05/19/2024 Lynn Botello Plan Of Treatment No Information Progress Notes * GENE DE LA PAZ HDOB:[birth year] (54 yo M)Acc No.[id number]:05/19/2024 Progress Note Patient: GENE SAL Appointment Provider: Estuardo Botello NP :1970 A ge:53 Y S ex:Male Date:05/19/2024 Address:[address] [facility] Subjective: * Chief Complaints: * 1 . Chest pain. * Medical History: Objective: * Vitals: Assessment: Plan: * Treatment: Care Plan: * Problems: * Images: * Electronic signature of Gregg Botello CNP on 01/14/2025 at 09:26 PM EDT Sign off status: Pending * Appointment Provider: Estuardo Botello NP Date: 05/19/2024 Generated for Yahiri ng/Fajayg/eTransmitting on: 0 01/14/2025 09:26 PM EDT
[2025-01-14] VITALS (8 sets, daily range): BP systolic 142–169; BP diastolic 88–101; PULSE 90; TEMP 37.1; O2SAT 95–98; BMI 27.9
--- OUTSIDE RECORDS SUMMARY | 2025-01-14 21:26 | XMS_ITS | Encounter Summary ---
Author Organization [facility] Address [address] [place] [address] Care Team Providers Care Security Checker Name Role Phone Unavailable Primary Care Provider Unavailabl e Encounter Details Date Type Department Care Team (Late st Contact Info) Description 03/19/2021 Abstract PATIENT ACUITY SCORE Social History Tobacco Use Types Packs/Day Years Used Date Smoking Tobacco: Every Day Cigarettes Smokeless Tobacco: Never Sex and Gender Information Value Date Recorded Sex Assigned at Not on file Legal Sex Male 10:57 PM EDT Gender Identity Not on file Sexual Orientation Not on file documented as of this encounter Plan of Treatment Not on file documented as of this encounter Visit Diagnoses Not on filedocumented in this encounter
--- OUTSIDE RECORDS SUMMARY | 2025-01-14 21:26 | XMS_ITS | Clinical Summary ---
Author Organization [facility] Address [address] [facility] [place] [address] Care Team Providers Care Scrip Clerk Name Role Phone Unavailable Primary Care Provider Unavailabl e Source Comments The following information is NOT included in Care Everywhere downloads:Psychiatric notes, ECG results, Cardiac Rehab notes, Pulmonary Function notes, data from [facility]tradas (includes but not limited toPregnancy data,audiograms, eye exams, pre-surgical evaluation notes, well-child exam data).[facility] Medications No known medications Active Problems Problem Noted Date Diagnosed Date Prostate abscess 01/27/2020 History of TIA (transient ischemic attack) 01/26 Type 2 diabetes mellitus wit h hyperglycemia, with long-term current use of insulin 01/27/2020 Renal cell carcinoma 03/16/2016 Iron deficiency anemia 05/04/2015 Immunizations Immunization Administration Dates Next Due Influenza, unspecified formulation (CVX=88) 02/11 Tdap (BYK=242) 04/30/2010 Social History Tobacco Use Types Packs/Day Years Used Date Smoking Tobacco: Every Day Cigarettes Smokeless Tobacco: Never Tobacco Cessation:Ready to Q uit: No; Counseling Given: Yes Sex and Gender Information Value Date Recorded Sex Assigned at Not on file Legal Sex Male 10:57 PM EDT Gender Identity Not on file Sexual Orientation Not on file Last Filed Vital Signs Vital Sign Reading Time Taken Comments Blood Pressure 121/77 01/31/2020 6:00 AM EDT Pulse 69 01/31/2020 6:00 AM EDT Temperature 36.6 C (97.8 F) 01/31/2020 6:00 AM EDT Respiratory Rate 18 01/31/2020 6:00 AM EDT Oxygen Saturation 100% 01/31/2020 6:00 AM EDT Inhaled Oxygen Concentration - - Weight 83.9 kg (185 lb) 01/27/2020 10:03 AM EDT Height 177.8 cm (5' 10 ) 01/27/2020 10:03 AM EDT Body Mass Index 26.54 01/27/2020 10:03 AM EDT Plan of Treatment Health Maintenance Due Date Last Done Comments Colonoscopy 1968 HIV Test 11/07/1983 Hepatitis C Antibody 1986 Hepatitis A (HAV) Vaccine (optional start 19+ years) 0 11/07/1987 Hepatitis B (HBV) Vaccine (1 of 3 - 19+ 3-dose series) 11/07/1987 Cholesterol 11/07/2003 CRC Screening 2013 Cologuard (Stool DNA) 2013 FIT 2013 Pneumococcal Vaccine(s) (50+ yrs) (1 of 1 - PCV) 11/06 Shingles (RZV) Vaccine (1 of 2) 2018 Tetanus (Td or Tdap) Booster 04/30/2020 04/30/2010 COVID-19 Vaccine ( - 2023- season) 2025 Influenza Vaccine (#1) 2025 03/02/2021 Tdap Booster Completed 04/30/2010 Insurance [facility] Advance Directives * Full Code (Latest Code Status on File) Date Activated Date Inactivated Comments 01/27/2020 9:37 AM 01/31/2020 3:57 PM Question Answer Comments Documentation of decision pr ocess for this code status: Patient and surrogate unable or unavailable to discuss. There is no previous documentation of code status. Defaulting to Full Code
--- OUTSIDE RECORDS SUMMARY | 2025-01-14 21:26 | XMS_ITS | Encounter Summary ---
Author Organization [facility] Address [address] [place] [address] Care Team Providers Care Check Examiner Name Role Phone Unavailable Primary Care Provider Unavailabl e Encounter Details Date Type Department Care Team (Late st Contact Info) Description 05/12/2020 Abstract PATIENT ACUITY SCORE Social History Tobacco [...]
--- OUTSIDE RECORDS SUMMARY | 2025-01-14 21:26 | XMS_ITS | Clinical Summary ---
Author Organization [facility] Address [address] [place] [address] Care Team Providers Care Trench Pipe Layer Name Role Phone Unavailable Primary Care Provider Unavailabl e Social History Tobacco Use Types Packs/Day Years Used Date Smoking Tobacco: Never Assessed Sex and Gender Information Value Date Recorded Sex Assigned at Not on file Legal Sex Male 7:00 PM EDT Gender Identity Not on file Sexual Orientation Not on file Last Filed Vital Signs Vital Sign Reading Time Taken Comments Blood Pressure 124/72 12/20/2021 12:00 PM EDT Pulse - - Temperature - - Respiratory Rate - - Oxygen Saturation - - Inhaled Oxygen Concentration - - Weight 90.6 kg (199 lb 12.8 oz) 022 12:00 PM EDT Height 180.3 cm (5' 11 ) 12/20/2021 12: 00 PM EDT Body Mass Index 27.87 12/20/2021 12:00 PM EDT Plan of Treatment Not on file
--- OUTSIDE RECORDS SUMMARY | 2025-01-14 21:27 | XMS_ITS ---
Author Organization [facility] Address [address] [place] [address] Care Team Providers Care Pharmacist Per Diem Name Role Phone Maricruz Mckeon Primary Care Provider Active Problems Problem Noted Date Diagnosed Date Renal cell carcinoma 03/16/2016 Iron deficiency anemia 05/04/2015 Current Treatment and Therapy Plans No current plan information found. Past Treatment and Therapy Plans NON-CHEMO 1 Plan Name Start Date Discontinue Date Treatment Medications Discontinue Reason Plan Provider Cycles GI FLUIDS 11/08/2016 12/09/2017 No medications scheduled. Other Fredy Brito, DO Treatment not started
--- OUTSIDE RECORDS SUMMARY | 2025-01-14 21:27 | XMS_ITS | Clinical Summary ---
Author Organization [facility] Address [address] [place] [id number] Care Team Providers Care Estimator Printing Plate Making Name Role Phone Maricruz Mckeon Primary Care Provider Allergies No known active allergies Medications INSULIN GLARGINE,HUM.R EC.ANLOG (LANTUS SUBCUTANEOUS) Inject 70 Units subcutaneously daily at bedtime. Active FARXIGA 10 mg tab 10 mg once daily. 6 Active DULoxetine (CYMBALTA) 30 mg capsule Take 30 mg by mouth once daily. 6 Active iv contrast (radiology procedure) CT ABD/PEL -Inject, intravenously, once for 1 dose.No IV access, insert saline lock prior to the beginning of sedation, infusion, injection of imaging exam. Discontinue saline lock post exam. If Pt. has a central line or IVAD, may access for administration according to line specific nursing protocol. Once exam is complete flush line and de-access according to line specific nursing protocol in the CT contrast administration guidelines link. 1 Each 7 Active enteric contrast (radiology procedure) For CT ABD/PEL W IVCON Routine order Administer, As Directed One Time Only, via Oral, Rectal, both Oral and Rectal, Enteric Tube, Stoma or Indwelling Catheter, Enteric Contrast as designated per enteric contrast guidelines 1 Each 7 Active iv contrast (radiology procedure) CT Chest W -Inject, intravenously, once for 1 dose.No IV access, insert saline lock prior to the beginning of sedation, infusion, injection of imaging exam. Discontinue saline lock post exam. If Pt. has a central line or IVAD, may access for administration according to line specific nursing protocol. Once exam is complete flush line and de-access according to line specific nursing protocol in the CT contrast administration guidelines link. 1 Each 7 Active Active Problems Problem Noted Date Diagnosed Date Renal cell carcinoma 03/16/2016 Iron deficiency anemia 05/04/2015 Family History Medical History Relation Comments Other Other Cancer, Heart, B lood disorder and Thyroid problems Relation Status Comments Father Alive Mother Other Social History Tobacco Use Types Packs/Day Years Used Date Smoking Tobacco: Every Day Cigarettes Smokeless Tobacco: Never Tobacco Cessation:Ready to Q uit: No; Counseling Given: No Alcohol Use Standard Drinks/Week Comments No 0 (1 standard drink = 0.6 oz pur e alcohol) Sex and Gender Information Value Date Recorded Sex Assigned at Not on file Legal Sex Male 9:06 AM EST Gender Identity Not on file Sexual Orientation Not on file Last Filed Vital Signs Vital Sign Reading Time Taken Comments Blood Pressure 118/83 11/01/2016 12:03 PM EDT Pulse 85 11/01/2016 12:03 PM EDT Temperature 36.5 C (97.7 F) 11/01/2016 12:03 PM EDT Respiratory Rate 16 11/01/2016 12:03 PM EDT Oxygen Saturation 99% 11/01/2016 12:03 PM EDT Room air Inhaled Oxygen Concentration - - Weight 90.7 kg (200 lb) 11/01/2016 12:03 PM EDT Height 180.3 cm (5' 10.98 ) 11/01/2016 12:03 PM EDT Body Mass Index 27.91 11/01/2016 12:03 PM EDT Plan of Treatment Health Maintenance Due Date Last Done Comments Anxiety Screening 1986 Depression Screening 1986 HIV Screening 1986 Hepatitis C Screening 1986 DTaP,Tdap,Td Vaccine (1 - Tdap) 11/07/1987 Hepatitis B Vaccine (1 of 3 - 19+ 3-dose series) 11/06 Lipid Screening 11/07/2003 CT Colonography 2013 Cologuard (FIT-DNA) 2013 Colonoscopy 2013 Colorectal Cancer Screening 2013 Fecal Occult Blood 2013 Prostate Cancer Screening Discussion 2013 Sigmoidoscopy 2013 Pneumococcal Vaccine: 50+ (1 of 1 - PCV) 2018 Shingrix Vaccine (1 of 2) 2018 Diabetes Screening 01/18/2019 01/19/2016 Influenza Vaccine (#1) 2025 Procedures Procedure Name Priority Date/Time Associated Diagnosis Comments COMPREHENSIVE METABOLIC PANEL Routine 01/19/2016 2:35 PM EDT Iron deficiency anemia, unspecified iron deficiency anemia type from Last 3 Months or Most Recently Relevant to Health Maintenance Results * (ABNORMAL) COMP METABOLIC PANEL (01/19/2016 2:35 PM EDT) Pathologist [facility] Protein, Total 7.8 6.3 - 8.0 g/dL 01/20/2016 5:10 AM EDT [facility] Albumin 4.4 3.9 - 4.9 g/dL 01/20/2016 5:10 AM T [facility] Calcium 9.8 8.5 - 10.5 mg/dL 01/20/2016 5:10 AM EDT [facility] Bilirubin, Total 0.3 0.2 - 1.3 mg/dL 01/20/2016 5:10 AM T [facility] Alkaline Phosphatase 105 36 - 108 U/L 01/20/2016 5:10 AM EDT [facility] AST 24 14 - 40 U/L 01/20/2016 5:10 AM [facility] Glucose 443(H) 74 - 99 mg/dL 01/20/2016 5:10 AM EDT [facility] BUN 16 9 - 24 mg/dL 01/20/2016 5:10 AM EDT [facility] Creatinine 1.28(H) 0.73 - 1.22 mg/dL [facility] Sodium 137 136 - 144 mmol/L 01/20/2016 5:10 AM EDT [facility] Potassium 4.9 3.7 - 5.1 mmol/L 01/20/2016 5:10 AM [facility] Chloride 94(L) 97 - 105 mmol/L 01/20/2016 5:10 AM EDT [facility] CO2 25 22 - 30 mmol/L 01/20/2016 [facility] Anion Gap 18 9 - 18 mmol/L 01/20/2016 5:10 AM EDT [facility] ALT 29 10 - 54 U/L 01/20/2016 5:10 AM EDT [facility] eGFR- >60 01/20/2016 5:10 AM EDT [facility] eGFR-All Other Races >60 . 01/20/2016 5:10 AM EDT [facility] Comment: eGFR (Estimated GFR) Units of measure: mL/min/1.73 meters squared eGFR is derived from the reexpressed MDRD Study equation using the following parameters: serum creatinine, age, gender and race. The creatinine assay has been calibrated to be traceable to IDMS. An eGFR <60 mL/min/1.73m2 for >3 months is consistent with chronic kidney disease. Refer to KDOQI guidelines for clinical interpretation. In patients with unstable renal function, e.g. those with acute kidney injury, the eGFR may not accurately reflect actual GFR. Blood specimen (specimen) BLOOD SPECIMEN / Unknown 01/19/2016 2:35 PM EDT 01/19/2016 2:37 PM EDT us Fredy Brito DO LABORATORY Final Res ult [facility] [address] [place] [address] from Last 3 Months or Most Recently Relevant to Health Maintenance Insurance BLUE CARD PPO OOS Care Teams Estimator Printing Plate Making Relationship Specialty Start Date End Date Maricruz Mckeon [address] [place] [id number] PCP - General Family Medicine 04/06/15
--- OUTSIDE RECORDS SUMMARY | 2025-01-14 21:27 | XMS_ITS | Patient Health Record ---
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 Name Role Phone Lynn Botello Primary Care Provider Allergies No Known Allergies Results Component Value Reference Range Notes Microalbumin, Urine (Random) Reviewed date:08/20/2024 09:09:37 PM Interpretation: Performing Lab:, [facility], [address] [place] Notes/Report: Reason for Exam Type 2 diabetes mellitus with other specified complication Microalbumin, Urine (Random) 38.9 0.0-1.8 mg/d L A1C with Estimated Average G jonathan Reviewed date:08/24/2024 08:17:15 PM Interpretation: Performing Lab:, [facility], [address] [place] Notes/Report: Reason for Exam Type 2 diabetes mellitus with other specified complication Hemoglobin A1C 10.1 4.3-5.6 % Increased risk for diabetes: 5.7 - 6.4 diabetes: >6.4 glycemic control for adults with diabetes: <7.0 Estimated Average Glucose 243 Comprehensive Metabolic Pane l Reviewed date:08/20/2024 09:09:56 PM Interpretation: Performing Lab:, [facility], [address] Notes/Report: Reason for Exam Type 2 diabetes mellitus with other specified complication Glucose 328 70-100 mg/dL Random Glucose Reference Range is dependent on time and content of last meal. Glucose of more than 200 mg/dL in a nonstressed, ambulatory subject supports the diagnosis of Diabetes Mellitus. ADA recommended reference range Blood Urea Nitrogen 27 7-25 mg/dL Creatinine 1.36 0.70-1.30 mg/dL Sodium 134 136-145 mmol/L Potassium 4.6 3.5-5.1 mmol/L Chloride 102 98-107 mmol/L Carbon Dioxide 23.6 21.0-31.0 mmol/L Calcium 10.0 8.6-10.3 mg/dL Total Protein 7.0 6.4-8.9 g/dL Albumin Level 4.1 3.5-5.7 g/dL Globulin 2.9 Albumin/Globulin Ratio 1.4 Bilirubin,Total 0.5 0.3-1.0 mg/dL Aspartate Amino Transferase 20 13-39 U/L Alanine Aminotransferase 34 7-52 U/L Alkaline Phosphatase 95 34-104 U/L Estimated GFR >60.0 Anion Gap 13.0 6.0-15.0 meq/L Lipid Panel Reviewed date:08/20/2024 09:09:12 PM Interpretation: Performing Lab: Notes/Report: Reason for Exam Type 2 diabetes mellitus with other specified complication Cholesterol 188 140-200 mg/dL Chol less than 200 mg/dl low risk Chol 201-239 mg/dl borderline risk Chol 240 mg/dl and greater high risk HDL Cholesterol 35 23-92 mg/dL HDL CHOL ATP-III CLASSIFICATION Cardiovascular Risk HDL > or equal to 60 mg/dL LOW HDL < 40 mg/dL HIGH Triglyceride w/Reflex 347 0-149 mg/dL TRIG ATP III CLASSIFICATION TRIG less than 150 mg/dL Normal TRIG 150-199 mg/dL Borderline high TRIG 200-500 mg/dL High TRIG greater than 500 mg/dL Very high Standard traceable to the Center for Disease Conrtrol and Prevention (CDC) test method. LDL Cholesterol,Calculated 84 0-100 mg/dL LDL ATP III CLASSIFICATION LDL less than 100 mg/dL Optimal LDL 100-129 mg/dL Near or above optimal LDL 130-159 mg/dL Borderline high LDL 160-189 mg/dL High LDL greater than 189 mg/dL Very high VLDL CHOLESTEROL 69 Chol/HDL Ratio 5.4 <5.0 Prostate Specific Antigen Sc rn Reviewed date:08/20/2024 09:08:55 PM Interpretation: Performing Lab:, [facility], [address] Notes/Report: Reason for Exam Screening for prostate cancer PSA Screen (Yearly Only) 0.470 0.000-4.000 ng/m L Serial tumor marker results determined by assays using different manufacturers or methods may not be comparable. Formerly [facility], [facility] fur plucker and method: Edai DXI, CHEMILUMINESCENT IMMUNOASSAY. Thyroid Stim Hormone w/Rflx Reviewed date:08/20/2024 09:09:02 PM Interpretation: Performing Lab: Notes/Report: Reason for Exam Type 2 diabetes mellitus with other specified complication Thyroid Stim Hormone w/Rflx 1.63 0.45-5.33 u[i U]/mL Complete Blood Count Auto Di ff Reviewed date:08/20/2024 09:12:11 PM Interpretation: Performing Lab:, [facility], [address] [place] Notes/Report: Reason for Exam Type 2 diabetes mellitus with other specified complication White Blood Count 7.2 4.1-10.5 10*3/uL Uncorrected WBC 7.2 4.1-10.5 10*3/uL Red Blood Count 5.03 3.90-5.60 10*6/uL Hemoglobin 15.1 13.0-17.0 g/dL Hematocrit 44.1 38.8-50.0 % Mean Corpuscular Volume 87.7 83.5-101 fL Mean Corpuscular Hemoglobin 30.0 27.5-35.2 pg Mean Corpuscular HGB Conc 34.2 32.5-35.6 g/dL Red Cell Distribution Width 14.4 12.0-14.8 % Platelet Count 192 150-450 10*3/uL Mean Platelet Volume 9.8 6.6-10.1 fL Neutrophils % (Auto) 57.8 . % Lymphocytes % (Auto) 33.1 . % Monocytes % (Auto) 6.2 . % Eosinophils % (Auto) 1.7 . % Basophils % (Auto) 1.2 . % NRBC% 0.3 0-0.5 /100{WBC} Neutrophils # (Auto) 4.2 1.8-7.7 10*3/uL Lymphocytes # (Auto) 2.4 1.00-4.8 10*3/uL Monocytes # (Auto) 0.4 0.0-0.8 10*3/uL Eosinophils # (Auto) 0.1 0.0-0.45 10*3/uL Basophils # (Auto) 0.1 0.0-0.2 10*3/uL MR head/brain wo con Reviewed date:04/27/2024 07:45:34 PM Interpretation: Performing Lab: Notes/Report: [facility] Main [place] [address] [place] [address] MRI Report Signed Patient: Gene De La Paz MR#: [id number] : 1970 Acct:[id number] Age/Sex: 53 / M ADM Date: 04/27/24 [facility] CLI Attending Dr: Lynn GARCIA Copies to: JOSE Hillman Ordering Provider: JOSE Hillman Date of Service: 04/27/24 MR/MR head/brain wo con: Blurry vision;Ptosis of left eyelid;Type 2 diabetes mellitus EXAMINATION: MRI OF THE BRAIN WITHOUT CONTRAST CLINICAL HISTORY: Follow-up multiple strokes. COMPARISON: MRI brain 06/02/2020 TECHNIQUE: Multiecho, multiplanar imaging of the brain was performed without enhancement. FINDINGS: No evidence of restricted diffusion is seen on diffusion-weighted imaging. No evidence of blood products are seen on gradient echo imaging. Punctate areas of abnormal white matter signal is seen likely related to mild chronic minor vascular ischemic changes. Cortical atrophy. Ventricular system appears unremarkable. Posterior fossa appears unremarkable. Interval contents appear grossly unremarkable. No significant paranasal sinus disease. MR/MR head/brain wo con IMPRESSION: NO ACUTE INTRACRANIAL PROCESS IS SEEN. CORTICAL ATROPHY WITH MILD CHRONIC MICROVASCULAR ISCHEMIC CHANGES. A SIMILAR PROCESS IS SEEN ON THE 2020 STUDY. Impression dictated by: Sathish Mayes Jr., D.OCarlos04/27/2024 10:41 AM Dictation Location: [place] [address] Transcribed By: [facility] 04/27/24 1041 Dictated By: Sathish Mayes Jr, DO 04/27/24 1038 Signed By: <Electronically signed by Sathish Mayes Jr, DO in [place]> 04/27/24 1041 Hemoglobin A1c Reviewed date:01/28/2024 10:17:17 AM Interpretation:12.4 Performing Lab: Notes/Report: 12.4 Hemoglobin A1c 12.4 5 - 7.9 % Hemoglobin A1c Reviewed date:04/28/2024 10:48:30 AM Interpretation:9.4 Performing Lab: Notes/Report: 9.4 Hemoglobin A1c 9.4 5 - 7.9 % Reason For Referral No Information Medications Medication SIG (Take, Route, Frequency, Duration) Notes Start Date End Date Status Syringe (Disposable) 1 ML as directed SQ four times a day (qid) as needed (prn); Duration: 30 days 02/02/2020 Active Insulin Aspart 100 UNIT/ML USE BEFORE ME ALS AND AT BEDTIME WITH SLIDING SCALE COVERAGE UNDER THE SKIN MAX 50 UNITS PER DAY Injection four times a day; Duration: 30 days Active Cetirizine HCl 10 MG 1 tablet Orally Onc e a day; Duration: 30 days 08/27/2023 Active rOPINIRole HCl 0.25 MG TAKE ONE TABLET B Y MOUTH ONCE NIGHTLY 1 TO 3 HOURS BEFORE BEDTIME; Duration: 30 days Active Lantus SoloStar 100 UNIT/ML inject 70 un its at night Subcutaneous daily; Duration: 30 days Active Pepcid 20 MG 1 tablet at bedtime as needed Orally Once a day; Duration: 30 days Active Farxiga 10 MG 1 tablet Orally Once a day; Duration: 30 days 01/28/2024 02/23/2025 Active Cyclobenzaprine HCl 10 MG 1 tablet Orall y twice a day; Duration: 30 days Active Needle (Disp) 31G X 5/16 as directed; D uration: 30 days 02/18/2020 Active Atorvastatin Calcium 80 MG TAKE 1 TABLET BY MOUTH EVERY DAY FOR 30 DAYS; Duration: 30 Active Nitroglycerin Active ALPRAZolam 0.5 MG 1 tablet Orally twic e a day (bid) as needed (prn); Duration: 7 days 08/20/2024 Active Metoprolol Succinate ER 25 MG 1/2 tablet Orally Once a day; Duration: 30 days 01/08/2023 Active Lisinopril 10 MG 1 tablet Orally Once a day; Duration: 30 days 01/08/2023 Active tiZANidine HCl 4 MG TAKE 1 TABLET BY LIZ TH EVERY DAY AT BEDTIME NEEDED FOR 30 DAYS; Duration: 30 Active Venlafaxine HCl ER 225 MG TAKE ONE CAPSU LE BY MOUTH DAILY WITH FOOD Orally Once a day; Duration: 30 days Active Dexcom G7 Pca - as directed; Durati on: 365 days 03/12/2024 Active Dexcom G7 Sensor - as directed; Duratio n: 30 days 03/12/2024 Active Gabapentin 600 MG TAKE ONE TABLET BY MOUTH ONCE NIGHTLY; Duration: 30 days Active Immunizations Vaccine Route Administration Date Status Comme nts Influenza 3+ PRIVATE IM Intramuscular 03/02/2021 Administe red MODERNA IM Intramuscular 02/21/2021 Administered MODERNA IM Intramuscular 03/21/2021 Administered Social History Tobacco Use: Social History Observation Description Date Details (start date - stop date) Current Smoker NA - NA Depression Screening (PHQ-9): Question Answer Notes Little interest or pleasure in doing things Not at all Feeling down, depressed, or hopeless More than h rosa the days Trouble falling or staying asleep, or sleeping t oo much Not at all Feeling tired or having little energy Several da ys Poor appetite or overeating Not at all Feeling bad about yourself-o r that you are a failure or have let yourself or your family down Several days Trouble concentrating on thi ngs, such as reading the newspaper or watching television Several days Moving or speaking so slowly that other people could have noticed. Or the opposite being so fidgety or restless that you have been moving around a lot more than usual Several days Thoughts that you would be b kaden off , or of hurting yourself in some way Not at all Total Score 6 Intepretation Mild Depression PRAPARE Question Answer Notes Date Completed/Updated: 01/26/21 What is your current housing situation? I have h ousing Are you worried about losing your housing? No What is the highest level of school that you have finished? 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 Check all that apply Food,Clothing Has lack of transportation k ept you from medical appointments, meetings, work or from getting things needed for daily living? No How often do you see or talk to people that you care about and feel close to? (For example: talking to friends on the phone, visiting friends or family, going to yazdanism or club meetings) More than 5 times a week How stressed are you? Stress is when someone feels tense, nervous, anxious, or cant sleep at night because their mind is troubled Somewhat In the past year have you sp ent more than 2 nights in a row in a chcf, senior living, jail center, or juvenile correctional facility? No Are you a refugee? No What country are you from? [place] Do you feel physically and e motionally safe where you currently live? Yes In the past year, have you b een afraid of your partner or ex-partner? No PRAPARE Score: 4 AUDIT-C (Standard) Question Answer Notes Did you have a drink contain ing alcohol in the past year? Yes How often did you have a dri nk containing alcohol in the past year? Monthly or less (1 point) How many drinks did you have on a typical day when you were drinking in the past year? 1 or 2 drinks (0 point) How often did you have six o r more drinks on one occasion in the past year? Never (0 point) Points 1 Interpretation Negative Tobacco Control (Standard) Question Answer Notes Tobacco use: Current smoker How often do you smoke cigarettes? Every day How many cigarettes a day do you smoke? 21-30 How soon after you wake up do you smoke your fir st cigarette? 6-30 minutes Are you interested in quitting? Not ready to phuc t Problems Problem Type SNOMED Code ICD Code Onset Dates Problem Status W/U Status Risk Notes Problem Diabetic renal disease (478973977) Type 2 diabetes mellitus with other diabetic kidney complication (E11.29) Active confirmed Problem Type 2 diabetes mellitus with other specified complication (E11.69) Active confirmed Problem Mixed hyperlipidemia (067254149) Mixed hyperlipidemia (E78.2) Active confirmed Problem Tobacco user (993942245) Nicotine dependence, unspecified, uncomplicated (F17.200) Active confirmed Problem Long-term current use of insulin (031026244) [facility] (current) use of insulin (Z79.4) Active confirmed Problem Seasonal allergy (620338405) Seasonal allergies (J30.2) Active confirmed Problem Vitamin D deficiency (74290431) Vitamin D deficiency (E55.9) Active confirmed Problem Anxiety (05024853) Anxiety (F41.9) Active confi rmed Problem Type II diabetes mellitus without complication (441332804) Diabetes (E11.9) Active confirmed Problem Neuropathy (076513160) Neuropathy (G62.9) Active confirmed Problem Restless legs (53481924) Restless leg (G25.81) Active confirmed Problem Thrombocytopenia (917505871) Thrombocytopenia (D69.6) Active confirmed Problem Hyperlipidaemia (27975749) Hyperlipidemia, unspecified hyperlipidemia type (E78.5) Active confirmed Problem Erectile dysfunction (disorder) (601421049) Erectile dysfunction, unspecified erectile dysfunction type (N52.9) Active confirmed Problem Tension-type headache (951870803) Acute non intractable tension-type headache (G44.209) Active confirmed Problem Urinary hesitancy (2292862) Urinary hesitancy (R39.11) Active confirmed Problem Chronic pancreatitis (817905111) Chronic pancreatitis, unspecified pancreatitis type (K86.1) Active confirmed Problem Moderate major depression, single episode (91213560) Current moderate episode of major depressive disorder without prior episode (F32.1) Active confirmed Problem Ataxia (68974692) Ataxia (R27.0) Active confirm ed Problem Personal history of primary malignant neoplasm of kidney (137117031) History of renal cell cancer (Z85.528) Active confirmed Problem Diastolic heart failure (730241524) Diastolic heart failure, unspecified HF chronicity (I50.30) Active confirmed Problem Carotidynia (455267761) Carotidynia (G90.01) Active confirmed Problem Left carotid artery occlusion (793472446338590) Left carotid stenosis (I65.22) Active confirmed Problem Stable angina (518234311) Stable angina (I20.89) Active confirmed Vital Signs Heart Rate 87 /min 08/20/2024 Temperature 97.1 degrees Fahrenheit 08/20/2024 Respiratory Rate 20 /min 08/20/2024 Oximetry 99 % 08/20/2024 Blood pressure diastolic 86 mm Hg 08/20/2024 Height 72in in 08/20/2024 Blood pressure systolic 149 mm Hg 08/20/2024 Weight 206 lbs 08/20/2024 BMI 27.94 kg/m2 08/20/2024 Encounters Encounter Location Date Provider Diagnosis [facility] [address] [place] [address] 01/21/2024 [facility] [address] [place] [address] 04/27/2024 [facility] [address] [place] [address] 04/29/2024 [facility] Nicotine dependence, unspecified, uncomplicated F17.200 [facility] [address] [place] [address] 05/04/2024 [place] [address] [place] [address] 05/14/2024 [place] [address] [place] [address] 08/20/2024 [place] [address] [place] [address] 08/20/2024 [facility] [address] [place] [address] 08/24/2024 [place] [address] [place] [address] 10/26/2024 [facility] Type 2 diabetes anil itus with other specified complication E11.69 [facility] [address] [place] [address] 12/24/2024 [place] [address] [place] [address] 08/20/2024 [facility] Type 2 diabetes anil itus with other specified complication E11.69 ; Seasonal allergies J30.2 ; Current moderate episode of major depressive disorder without prior episode F32.1 ; Diastolic heart failure, unspecified HF chronicity I50.30 ; Neuropathy G62.9 ; Stable angina I20.89 ; Nicotine dependence, unspecified, uncomplicated F17.200 ; Mixed hyperlipidemia E78.2 ; Hyperlipidemia, unspecified hyperlipidemia type E78.5 ; Pain, joint, knee, left M25.562 ; Recurrent low back pain M54.50 and Screening for prostate cancer Z12.5 [place] [address] [facility] [address] 01/28/2024 [facility] Type 2 diabetes anil itus with other specified complication E11.69 ; Nicotine dependence, unspecified, uncomplicated F17.200 ; Neuropathy G62.9 ; [facility] (current) use of insulin Z79.4 and Pancreatic pain K86.[address] [address] 03/31/2024 Lynn Botello Acute pancreatitis, unspecified complication status, unspecified pancreatitis type K85.90 ; Blurry vision H53.8 ; Ptosis of left eyelid H02.402 ; History of renal cell cancer Z85.528 and Type 2 diabetes mellitus with other specified complication E11.[address] [address] 04/28/2024 Lynn Botello Nicotine dependence, unspecified, uncomplicated F17.200 ; Pancreatic enlargement K86.9 ; Type 2 diabetes mellitus with other specified complication E11.69 and Chronic pancreatitis, unspecified pancreatitis type K86.[address] [address] 06/18/2024 Lynn Botello Type 2 diabetes anil itus with other specified complication E11.69 ; Nicotine dependence, unspecified, uncomplicated F17.200 ; Status post fall Z91.81 and Contusion of rib on left side, initial encounter S20.212A [address] [address] 05/26/2024 Lynn Botello Nicotine dependence, unspecified, uncomplicated F17.200 ; Stable angina I20.89 ; Type 2 diabetes mellitus with other specified complication E11.69 ; Hyperlipidemia, unspecified hyperlipidemia type E78.5 and Chronic pancreatitis, unspecified pancreatitis type K86.[address] [address] 03/12/2024 Lynn Botello Nicotine dependence, unspecified, uncomplicated F17.200 ; Chest pain, unspecified type R07.9 ; Type 2 diabetes mellitus with other specified complication E11.69 ; Seasonal allergies J30.2 ; Current moderate episode of major depressive disorder without prior episode F32.1 ; Neuropathy G62.9 ; Diastolic heart failure, unspecified HF chronicity I50.30 and Mixed hyperlipidemia E78.2 Assessments Encounter Date Diagnosis (ICD Code) Assessment Notes Treatment Notes Treatment Clinical Notes Section Notes 01/28/2024 Type 2 diabetes mellitus with other specified complication (ICD-10 - E11.69) A!C is above goal of 7.0, optimal goal is 6.5%. Medication reviewed. Medication changed today. vicki stopped s/t pancreatis, his a1c is now 12.6, will trial mounjaro, to trulicity and can also cause pancreatitis but not as common in this medication. It will help decrease a1c., pt is strongly encouraged to take his inuslin and sliding scale four times a day, if does not improve will need to start 70/30 and schedule bid. He states its gonna get better since no longer sick. We discussed Pt is enc to monitor BS at home, if <70 or >450 go to the ER. Will get update labs today including renal, liver, and thyroid function. Microalbumin within last year. 01/28/2024 Nicotine dependence, unspecified, uncomplicated (ICD-10 - F17.200) smoking cessation discussed. Pt verbalized understanding to complication of tobacco use including cardiac and pulmonary disease, as well as stroke. Pt declines interest in this time. 03/12/2024 Nicotine dependence, unspecified, uncomplicated (ICD-10 - F17.200) smoking cessation discussed. Pt verbalized understanding to complication of tobacco use including cardiac and pulmonary disease, as well as stroke. Pt declines interest in this time. 03/12/2024 Chest pain, unspecified type (ICD-10 - R07.9) pt had two day stay w/o any cardiac events. In review of visit notes, no dx of LA but pt and are adament that he had one and went to the ER too late. He has stress test done a year ago that met 89% perdicted HR w/o and ischemic changes. Given recent admit, a lexiscan stress test is most appropriate. He is taking his cholesterol medication and medication as prescribed. Sccrpt for nitro provided to pt, explained to take onset, and repeat every 5 minutes x 3 total doses, he needs go to ER for further eval. He vu in poc 03/31/2024 Blurry vision (ICD-10 - H53.8) pt visual acuity intact today, he is advised to make an eye appt chanda, he is diabetic, uncontrolled, and retinopathy could be contributing factor. although neuro intact, with vision, sight eye droop, HLD, high risk for CVA, will get MRI to further evaluate. Pt agree with poc. He is aware if he has any returning symtptoms he is to seek emergent care. He vu in plan of care. 03/31/2024 Acute pancreatitis, unspecified complication status, unspecified pancreatitis type (ICD-10 - K85.90) obtain Er report from [facility] for review, pt is a non drinker but has now three flares of pancreatitis. He also is diabetic but off any GPL-1. Enc pt to follow clear liquid diet and increase as tolerated, if has increased abd pain, nv he needs to go to the ER. Also pending ER review consider additional imaging and referral to specialist, pt is non acute today. agree with poc 04/28/2024 Nicotine dependence, unspecified, uncomplicated (ICD-10 - F17.200) smoking cessation discussed. Pt verbalized understanding to complication of tobacco use including cardiac and pulmonary disease, as well as stroke. Pt declines interest in this time. 04/28/2024 Pancreatic enlargement (ICD-10 - K86.9) patient has had several flares since initial in December. He had CT scan with contrast done at [facility]. pancreatic head is enlarged will get MRCP for further evaluation. hx of renal cancer would like to r/o pancreatic leision/malignancy . pt agree with poc. 04/29/2024 Nicotine dependence, unspecified, uncomplicated (ICD-10 - F17.200) 05/26/2024 Nicotine dependence, unspecified, uncomplicated (ICD-10 - F17.200) 05/26/2024 Stable angina (ICD-10 - I20.89) 06/18/2024 Type 2 diabetes mellitus with other specified complication (ICD-10 - E11.69) refills requested. Continue home monitoring of blood sugars; if <70 or >450 go to the ER. Pt enc to have annual eye exams as well as enc to not cut toe nails, routine foot care and checks with podiatry, if you develop any sores/concern RTO. F/U 3 months 06/18/2024 Nicotine dependence, unspecified, uncomplicated (ICD-10 - F17.200) smoking cessation discussed. Pt verbalized understanding to complication of tobacco use including cardiac and pulmonary disease, as well as stroke. Pt declines interest in this time. 08/20/2024 Type 2 diabetes mellitus with other specified complication (ICD-10 - E11.69) AIC is goal of 7.0. Continue same medications as prescribed. Labs ordered to review renal function. Urine for microalbumin. Continue home monitoring of blood sugars; if <70 or >450 go to the ER. Pt enc to have annual eye exams as well as enc to not cut toe nails, routine foot care and checks with podiatry, if you develop any sores/concern RTO. F/U 3 months 08/20/2024 Seasonal allergies (ICD-10 - J30.2) Pt enc to start anti-histamine before start of allergy season, for environmental allergies, continue daily use. Nasal sprays such as nasocort or flonase can reduce inflammation, decrease congestion. Proper administration was discussed, enc to use nasal saline rinse to prevent over drying and nose bleeds associated with nasal sprays. avoid over use of Afrin, will cause rebound tenderness. If you develop face pain, pressure, thick drainage, fever, chills, PARKER, symptoms lasting longer than 10 days, RTO for further evaluation for sinus infection. Severe allergies/symptoms , will refer to [facility] for injections if indicated. 10/26/2024 Type 2 diabetes mellitus with other specified complication (ICD-10 - E11.69) 08/20/2024 Current moderate episode of major depressive disorder without prior episode (ICD-10 - F32.1) Continue medication, potential side effects were discussed as well as proper administration of medication. Pt verbalizes understanding. Pt is aware not to stop medication suddenly and to come to office to be weaned down, abrupt discontinuation can cause withdrawal symptoms. Stable mood today, no c/o SI/HI, if feelings occur pt to call 911/ER. Discussed coping mechanisms such as exercise, group therapy, and counseling. 06/18/2024 Status post fall (ICD-10 - Z91.81) patient did go to the ER but she did not have any pain medications. will give pain med, advised to ice. Take deep breaths, any changes, diff breathing go to the ER 05/26/2024 Type 2 diabetes mellitus with other specified complication (ICD-10 - E11.69) A1C goal of 7.0, optimal goal is 6.5%. Pt is enc to monitor BS at home does wear his dexcom system, more compliant, if <70 or >450 go to the ER. Will get update labs when next a1c, Microalbumin within last year. 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 Medication reviewed. a1c is improved now that ptis wearing dexcom and treating sugars with sliding scale. . Pt is enc to monitor BS at home, if <70 or >450 go to the ER. Will get update labs today including renal, liver, and thyroid function. Microalbumin within last year. 03/12/2024 Type 2 diabetes mellitus with other specified complication (ICD-10 - E11.69) AIC goal of 7.0. Continue same medications as prescribed, pt is to start the mounjaro, needs improvement in A1C. Labs ordered to review renal function. Urine for microalbumin within the year. Continue home monitoring of blood sugars; if <70 or >450 go to the ER. Pt enc to have annual eye exams as well as enc to not cut toe nails, routine foot care and checks with podiatry, if you develop any sores/concern. 01/28/2024 Neuropathy (ICD-10 - G62.9) Improved with medication, gabapentin. OARRS reviewed and compliant. Continue with specialists as needed. If you develop any pain, swelling, change in color of the LE, go to the ER. 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 Nasal sprays such as nasocort or flonase can reduce inflammation, decrease congestion. Proper administration was discussed, enc to use nasal saline rinse to prevent over drying and nose bleeds associated with nasal sprays. avoid over use of Afrin, will cause rebound tenderness. If you develop face pain, pressure, thick drainage, fever, chills, PARKER, symptoms lasting longer than 10 days, RTO for further evaluation for sinus infection. Severe allergies/symptoms , will refer to [facility] for injections if indicated. 04/28/2024 Chronic pancreatitis, unspecified pancreatitis type (ICD-10 - K86.1) see above 03/31/2024 History of renal cell cancer (ICD-10 - Z85.528) 05/26/2024 Hyperlipidemia, unspecified hyperlipidemia type (ICD-10 - E78.5) lipid panel every 3-6 months with CMP to monitor liver and renal function, adjust medications accordingly. Discussed a low chol diet. Enc moderate daily exercise. If you develop any muscle cramping, leg cramps/pain, intolerance to medication please RTO. 06/18/2024 Contusion of rib on left side, initial encounter (ICD-10 - S20.212A) see above 08/20/2024 Diastolic heart failure, unspecified HF chronicity (ICD-10 - I50.30) Wt is stable. Continue medications as prescribed. Monitor labs every 3 months. Continue co-management with cardiology. Enc a BETHANY diet. If you develop increased swelling, shortness of breath, chest pain, pressure, go to the ER/911 05/26/2024 Chronic pancreatitis, unspecified pancreatitis type (ICD-10 - K86.1) pending MRCP, insurance pending approval. Discouraged etoh, pt does not drink. Stopped GPL-1. 03/31/2024 Type 2 diabetes mellitus with other specified complication (ICD-10 - E11.69) wearing dexcom, with having device has been more compliant with sugars as he is dosing himself with insulin when high or low. He voices that he likes this medication. 08/20/2024 Neuropathy (ICD-10 - G62.9) Improved with medication, gabapentin. OARRS reviewed and compliant. Continue with specialists as needed. If you develop any pain, swelling, change in color of the LE, go to the ER. 03/12/2024 Current moderate episode of major depressive disorder without prior episode (ICD-10 - F32.1) Continue medication, potential side effects were discussed as well as proper administration of medication. Pt verbalizes understanding. Pt is aware not to stop medication suddenly and to come to office to be weaned down, abrupt discontinuation can cause withdrawal symptoms. Stable mood today, no c/o SI/HI, if feelings occur pt to call 911/ER. Discussed coping mechanisms such as exercise, group therapy, and counseling. 01/28/2024 Pancreatic pain (ICD-10 - K86.89) resolved pt blames drinking mountin dew. will closely monitor. 03/12/2024 Neuropathy (ICD-10 - G62.9) Improved with medication, gabapentin. OARRS reviewed and compliant. Continue with specialists as needed. If you develop any pain, swelling, change in color of the LE, go to the ER. 08/20/2024 Stable angina (ICD-10 - I20.89) pt requested medication refills today, refills sent per request 08/20/2024 Nicotine dependence, unspecified, uncomplicated (ICD-10 - F17.200) smoking cessation discussed. Pt verbalized understanding to complication of tobacco use including cardiac and pulmonary disease, as well as stroke. Pt declines interest in this time. 03/12/2024 Diastolic heart failure, unspecified HF chronicity (ICD-10 - I50.30) pt was seen in hospital by cardiology, updated echo w/o acute findings, stress test was recommended. pt has not scheduled or f/u [facility] control engineer. 03/12/2024 Mixed hyperlipidemia (ICD-10 - E78.2) lipid panel every 3-6 months with CMP to monitor liver and renal function, adjust medications accordingly. Discussed a low chol diet. Enc moderate daily exercise. If you develop any muscle cramping, leg cramps/pain, intolerance to medication please RTO. 08/20/2024 Mixed hyperlipidemia (ICD-10 - E78.2) lipid panel every 3-6 months with CMP to monitor liver and renal function, adjust medications accordingly. Discussed a low chol diet. Enc moderate daily exercise. If you develop any muscle cramping, leg cramps/pain, intolerance to medication please RTO. 08/20/2024 Hyperlipidemia, unspecified hyperlipidemia type (ICD-10 - E78.5) 08/20/2024 Pain, joint, knee, left (ICD-10 - M25.562) Enc pt to exercise at least 30 minutes a day with moderate exercise. NSAIDS can be helpful if you do not have elevated blood pressure. For pain, tylenol 500 mg Q6 hours, do not exceed 3000 mg in a day. Home exercise program. Heat or ice as needed. Topical medications such as biofreeze, asper cream, icy hot can also be helpful. Tumeric is a natural anti-inflammatory which can also alleviate pain. 08/20/2024 Recurrent low back pain (ICD-10 - M54.50) Pt noted to be in acute pain, will give oral steriod as well as muscle relaxer. Ice is encouraged initially for 48-72 hours then switch to moist heat. Topical creams also may be beneficial such as icy hot or biofreeze. Low back exercises encourged. Xray results from ER visit to be obtained and reviewed, appropriate referral to PT vs Pain pending results and response to treatment. 08/20/2024 Screening for prostate cancer (ICD-10 - Z12.5) due for annual screening via blood test, discussed prostate cancer is important, if caught early has a high cure rate. 08/20/2024 Other Body Mass Index : Care Instructions material was published, Body Mass Index: Care Instructions material was printed Plan Of Treatment Pending Test Test Name Order Date MR MRCP 04/28/2024 STR cardiac stress/lexiscan 03/12/2024 Insurance Providers Payer Name Payer Address Payer Phone Subscriber Number Group Number Insured Name Patient Relationship to Insured Coverage Start Date Coverage End Date [employer] [place] [address] [place] [phone] [id number] GENE DE LA PAZ Self - patient is the insured 3 zMEDICAID C[employer] after [employer] [address] [place] [address] [id number] GENE DE LA PAZ Self - patient is the insured 0 3 Wrap [employer] [address] [place] [address] [id number] GENE DE LA PAZ Self - patient is the insured 3 [employer] [address] [place] [address] [phone] [id number] GENE DE LA PAZ Self - patient is the insured 0 3 zDENTAL DQ [employer] [address] [facility] [place] [phone] [id number] GENE DE LA PAZ Self - patient is the insured 0 zDental MEDICAID CFC after [employer] [address] [place] [address] [id number] GENE DE LA PAZ Self - patient is the insured 1 Medical (General) History Medical History History ICD Code Type 2 diabetes Cancer Surgical History Surgery Date(Month/Year) right nephrectomy cholecystectomy appendectomy Drain absess on prostate 01/2020 Hospitalization History Reason Date(Month/Year) chest pain 04/2024 acute pancreatitus 12/2023 INFECTION 04/2020 staph infection in heart, eye, lung and blood 2018 5 nights in hospital absess 01/2020 3rd degree saucedo on legs
--- NOTE | 2025-01-14 21:32 | PC.NURSE ---
this patient arrives with his and complains of rash on his abdomen with slight itching onset today. this patient voices no other complaints and shows no signs of distress
--- NOTE | 2025-01-14 21:54 | ED.SKABFB1 ---
HPI - Skin/Abscess/Foreign Bdy General Chief complaint: Skin/Abscess/Foreign Body Stated complaint: RASH Time Seen by Provider: 01/14/25 21:32 Source: patient Mode of arrival: walk-in Limitations: no limitations History of Present Illness HPI narrative: This 54-year-old male with a history of kidney cancer in 2017 resulting in a resection of the right kidney presents for evaluation of a nonpruritic rash on his abdomen. He states it started several days ago. His made him come to the emergency department after seeing it. He denies any fever or cough. He does not have any bleeding anywhere. He has a faint, pink petechial rash on his abdominal wall and medial aspect of his right arm.. I asked him to take down his pants which reveals more of a petechial rash on his lower extremities with an area almost coalescent with petechiae on his ankles and less so on both feet. He denies that he has been outside without a shirt. He has not had any fever. He does not have any chest pain or shortness of breath. He does not have any oral lesions. He is not on any chemotherapy or any radiation therapy at this time stating that he still follows up with his oncologist but is considered cured from his cancer. He does not have any weight loss, he does not have any abdominal pain nausea or vomiting. He has not had any diarrhea. He denies any change in his detergents or healthcare products. Related Data Home Medications ?Medication ?Instructions ?Recorded ?Confirmed atorvastatin 40 mg tablet 80 mg PO DAILY 03/19/23 05/10/24 buspirone 10 mg tablet 10 mg PO DAILY 03/19/23 05/10/24 dapagliflozin propanediol 10 mg 10 mg PO DAILY 03/19/23 05/10/24 tablet (Farxiga) gabapentin 600 mg tablet 600 mg PO Q12H PRN pain 03/19/23 05/10/24 hydrochlorothiazide 25 mg tablet 25 mg PO DAILY 03/19/23 05/10/24 insulin aspart U-100 100 unit/mL 7 unit subcut DAILY 03/19/23 05/10/24 subcutaneous solution insulin glargine 100 unit/mL (3 70 unit subcut DAILY 03/19/23 05/10/24 mL) subcutaneous pen (Lantus Solostar U-100 Insulin) lisinopril 5 mg tablet 5 mg PO DAILY 03/19/23 05/10/24 metoprolol succinate 25 mg 25 mg PO DAILY 03/19/23 05/10/24 tablet,extended release 24 hr ropinirole 0.25 mg tablet 0.25 mg PO DAILY 03/19/23 05/10/24 tizanidine 4 mg tablet 4 mg PO DAILY PRN pain 03/19/23 05/10/24 famotidine 20 mg tablet 20 mg PO DAILY PRN heart burn 05/10/24 05/10/24 nitroglycerin 0.4 mg sublingual 0.4 mg sublingual Q5M PRN chest 05/10/24 05/10/24 tablet pain venlafaxine 225 mg tablet,extended 225 mg PO DAILY 05/10/24 05/10/24 release 24 hr Previous Rx's ?Medication ?Instructions ?Recorded bixxcjwsfwgumwg-lzeijfptafvkdcy-VZ 10 ml PO Q6H PRN cold symptoms 06/24/24 2 mg-30 mg-10 mg/5 mL oral syrup #200 mL (Bromfed DM) Allergies Allergy/AdvReac Type Severity Reaction Status Date / Time No Known Drug Allergies Allergy Verified 01/14/25 21:28 Review of Systems ROS Status of ROS 10 or more systems reviewed and unremarkable except as noted in history and below PFSH [facility] Medical History (Updated 01/14/25 @ 22:58 by Toshia Santiago MD) Diabetes ?E11.9 - Type 2 diabetes mellitus without complications (ICD-10) Surgical History (Updated 11/12/22 @ 02:23 by Diana Mcghee) History of kidney surgery ?Z98.890 - Other specified postprocedural states (ICD-10) History of cholecystectomy ?Z90.49 - Acquired absence of other specified parts of digestive tract (ICD-10) History of appendectomy ?Z90.49 - Acquired absence of other specified parts of digestive tract (ICD-10) Social History Smoking status: Current every day smoker Little interest or pleasure in doing things: not at all Feeling down, depressed, or hopeless: not at all Exam Narrative Exam Narrative: Vital signs and Nursing Notes reviewed: Patient is afebrile with a normal pulse, blood pressure is elevated 169/101, he is not hypoxic with pulse ox of 97% on room air General: Awake, alert, oriented, no acute distress, lying comfortably on the stretcher HEENT: Normocephalic atraumatic, mucous membranes are moist and pink, eyes are clear, normal conjunctiva, vision is grossly intact, posterior pharynx is normal in appearance, no oral lesions, petechiae or purpura noted, there is no swelling of the tongue, uvular pharyngeal soft tissues Neck: Supple, no meningeal signs, no anterior or posterior cervical lymphadenopathy Chest: Lungs are clear to auscultation with good air entry, there is no wheezing rhonchi or rales appreciated no accessory muscle use, patient is speaking in complete sentences-no chest wall tenderness to palpation CVS: Regular rate and rhythm S1-S2, no murmurs rubs or gallops, pulses are brisk and equal bilaterally ABD: Soft, nondistended, nontender, large healed incision across the upper abdomen status post kidney resection no rebound guarding or rigidity, bowel sounds are normal, no pulsatile masses appreciated Extremities: Moving all extremities, no lower extremity tenderness or swelling noted, negative Homans' sign, pulses are brisk and equal bilaterally Skin: There is a faint rash on the abdominal wall that is pink and nonblanching/petechial in nature, there is also faint rash on the right medial forearm, on the lower extremities there is more of the same rash which is almost coalescent at the patient's ankles and also on the top of his feet. Neuro: No focal deficits Constitutional Vital Signs, click to edit/add: Last Vital Signs Temp 98.8 F 01/14/25 21:28 Pulse 90 01/14/25 21:28 Resp 18 01/14/25 21: BP 142/88 H 01/14/25 22:30 Pulse Ox 96 01/14/25 22:40 O2 Del Method Room Air 01/14/25 21:28 Course Vital Signs Vital signs: Vital Signs Temperature 98.8 F 01/14/25 21: Pulse Rate 90 01/14/25 21:28 Respiratory Rate 18 01/14/25 21:28 Blood Pressure 169/101 H 01/14/25 21:28 Pulse Oximetry 97 01/14/25 21:28 Oxygen Delivery Method Room Air 01/14/25 21:28 Temperature 98.8 F 01/14/25 21:28 Pulse Rate 90 01/14/25 21:28 Respiratory Rate 18 01/14/25 21:28 Blood Pressure 142/88 H 01/14/25 22:30 Pulse Oximetry 96 01/14/25 22:40 Oxygen Delivery Method Room Air 01/14/25 21:28 MDM - Skin/Abscess/Foreign Bdy MDM Narrative Medical decision making narrative: This 54-year-old male with a history of diabetes and a history of kidney cancer in the past who has had a kidney resection and is not currently on any treatment but also is diabetic presents for evaluation of a nonpruritic rash on his abdomen and right arm. He states this has been present for the past several days and his noticed it tonight and made him come to the hospital. He does not have any fevers or chills. He is not having any bleeding from his mouth or hematuria. He does not have any headache, neck pain, chest pain or shortness of breath. His appetite has been normal. He has no abdominal pain or back pain. He does have what appears to be a petechial rash on his abdominal wall and right arm. I asked the patient to take off his close and this revealed that this rash was also present on both lower extremities mostly in the anterior aspect and almost coalescent around his ankles and on the feet. This is not pruritic or tender. Is not raised. I was concerned that he may have ITP and a workup for ITP was ordered. He has a normal white count and stable hemoglobin. Platelet count is normal at 181. PT/INR is normal. Electrolytes are normal with the exception of a glucose of 470 and mild elevation in his BUN and creatinine but this is consistent with his baseline. Lactic acid, sed rate and CRP were all normal. Liver function tests are normal. This rash does not appear to be infectious and based on my workup it is likely not ITP. I did discuss his elevated glucose with him and he states that he was eating candy covered almonds before coming to the hospital. I offered him a short course of steroids to see if this would help the rash and he was in agreement with this. He does a sliding scale for his insulin coverage and will monitor his glucose closely over the course of this steroid treatment. He was encouraged to return to the emergency department for worsening symptoms, any bleeding and I recommended close follow-up with his family physician. Patient and his are in agreement with this plan and no questions or concerns were offered at the time of discharge. Lab Data Labs: Lab Results 01/14/25 Range/Units 21:48 WBC 8.4 (4.0-11.0) 10^3/uL RBC 5.23 (4.70-6.10) 10^6/uL Hgb 15.9 (14.0-18.0) g/dL Hct 44.6 (42.0-54.0) % MCV 85.3 (80.0-94.0) fL MCH 30.4 (25.9-34.0) pg MCHC 35.7 H (29.9-35.2) g/dL RDW 12.7 (11.0-15.0) % Plt Count 181 (150-450) 10^3/uL MPV 10.5 (9.5-13.5) fL Neut % (Auto) 57.1 (43.0-75.0) % Lymph % (Auto) 32.8 (20.5-60.0) % [place] % (Auto) 6.0 (1.7-12.0) % Eos % (Auto) 2.9 (0.9-7.0) % Baso % (Auto) 0.7 (0.2-2.0) % Neut # (Auto) 4.8 (1.4-6.5) 10^3/uL Lymph # (Auto) 2.7 (1.2-3.8) 10^3/uL [place] # (Auto) 0.5 (0.3-0.8) 10^3/uL Eos # (Auto) 0.2 (0.0-0.7) 10^3/uL Baso # (Auto) 0.1 (0.0-0.1) 10^3/uL Abs Immat Gran (auto) 0.04 H (0.00-0.03) 10^3/uL Imm/Tot Granulo (auto) 0.5 (0.0-0.5) % ESR 14 (<=20) mm/hr PT 9.7 (9.0-11.6) sec INR <0.93 Sodium 138 (136-145) mmol/L Potassium 4.2 (3.5-5.1) mmol/L Chloride 102 (98-107) mmol/L Carbon Dioxide 22.8 (21.0-32.0) mmol/L Anion Gap 17.4 BUN 20.0 H (7.0-18.0) mg/dL Creatinine 1.37 H (0.70-1.30) mg/dL Est GFR ( Amer) >60 (>=60 mL/min/1.73m^2) Est GFR (Non-Af Amer) 54 L (>=60 mL/min/1.73m^2) BUN/Creatinine Ratio 14.6 Glucose 470 H (74-106) mg/dL Lactate 1.6 (0.4-2.0) mmol/L Calcium 8.9 (8.5-10.1) mg/dL Total Bilirubin 0.5 (0.2-1.0) mg/dL AST 15 (15-37) U/L ALT 44 (16-63) U/L Alkaline Phosphatase 112 (46-116) U/L C-Reactive Protein <0.50 (<=0.50) mg/dL Total Protein 7.3 (6.4-8.2) g/dL Albumin 3.6 (3.4-5.0) g/dL Globulin 3.7 g/dL Albumin/Globulin Ratio 1.0 Blood Type A Positive Antibody Screen Negative Discharge Plan Discharge Chief Complaint: Skin/Abscess/Foreign Body Clinical Impression: Hyperglycemia, Petechial rash Patient Disposition: Home, Self-Care Time of Disposition Decision: 22:58 Condition: Good Prescriptions / Home Meds: No Action yvpedcrtvtmjsqv-lgoptdqcx-AH [Bromfed DM] 2-30-10 mg/5 mL syrup 10 ml PO Q6H PRN (Reason: cold symptoms) Qty: 200 0RF atorvastatin 40 mg tablet 80 mg PO DAILY buspirone 10 mg tablet 10 mg PO DAILY dapagliflozin propanediol [Farxiga] 10 mg tablet 10 mg PO DAILY gabapentin 600 mg tablet 600 mg PO Q12H PRN (Reason: pain) hydrochlorothiazide 25 mg tablet 25 mg PO DAILY lisinopril 5 mg tablet 5 mg PO DAILY metoprolol succinate 25 mg tablet extended release 24 hr 25 mg PO DAILY ropinirole 0.25 mg tablet 0.25 mg PO DAILY tizanidine 4 mg tablet 4 mg PO DAILY PRN (Reason: pain) insulin glargine [Lantus Solostar U-100 Insulin] 100 unit/mL (3 mL) insulin pen 70 unit SUBCUT DAILY insulin aspart U-100 100 unit/mL solution 7 unit subcut DAILY Rx Instructions: sliding scale famotidine 20 mg tablet 20 mg PO DAILY PRN (Reason: heart burn ) nitroglycerin 0.4 mg tablet, sublingual 0.4 mg sublingual Q5M PRN (Reason: chest pain) venlafaxine 225 mg tablet extended release 24hr 225 mg PO DAILY Print Language: Korean Instructions: Acute Rash (ED), Diabetic Hyperglycemia (ED) Referrals: [facility] [Primary Care Provider] - 1 week Discharge Date/Time: 01/14/25 23:20
[2025-01-14 22:10] LABS: Hematocrit 44.6 % (42.0-54.0); Hemoglobin 15.9 g/dL (14.0-18.0); Immature Granulocytes Abs Auto 0.04 10^3/uL (0.00-0.03); Immature Granulocytes Pct Auto 0.5 % (0.0-0.5); Lymphocytes Absolute Auto 2.7 10^3/uL (1.2-3.8); Mean Corpuscular HGB Conc 35.7 g/dL (29.9-35.2); Mean Corpuscular Hemoglobin 30.4 pg (25.9-34.0); Mean Corpuscular Volume 85.3 fL (80.0-94.0); Platelet Count 181 10^3/uL (150-450); Red Blood Count 5.23 10^6/uL (4.70-6.10); White Blood Count 8.4 10^3/uL (4.0-11.0)
--- NOTE | 2025-01-14 22:26 | PC.NURSE ---
this patient sitting upright on the bed awake and alert doing something on his cell phone. this patient's also sitting in the room looking at his cell phone. i informed this patient that we are still waiting on the all of the results to come back. this patient voices no concerns, needs and show no signs of distress
[2025-01-14 22:27] LABS: Prothrombin Time 9.7 sec (9.0-11.6)
[2025-01-14 22:35] LABS: Alanine Aminotransferase 44 U/L (16-63); Albumin Globulin Ratio 1.0; Albumin Level 3.6 g/dL (3.4-5.0); Alkaline Phosphatase 112 U/L (46-116); Anion Gap 17.4; Aspartate Amino Transferase 15 U/L (15-37); Blood Urea Nitrogen 20.0 mg/dL (7.0-18.0); Calcium 8.9 mg/dL (8.5-10.1); Carbon Dioxide 22.8 mmol/L (21.0-32.0); Chloride 102 mmol/L (98-107); Estimated GFR (African America >60 (>=60 mL/min/1.73m^2); Estimated GFR (Non-African Ame 54 (>=60 mL/min/1.73m^2); Globulin 3.7 g/dL; Glucose 470 mg/dL (74-106); Potassium 4.2 mmol/L (3.5-5.1); Sodium 138 mmol/L (136-145); Total Protein 7.3 g/dL (6.4-8.2)
[2025-01-14 22:37] LABS: Lactate/Lactic Acid 1.6 mmol/L (0.4-2.0)
[2025-01-14 22:39] LABS: INR <0.93
[2025-01-14] MEDS: PREDNISONE 20 MG TABLET PO (23:15)
--- NOTE | 2025-01-14 23:19 | PC.NURSE ---
i gave this patient verbal and written discharge orders along with 1 Rx and this patient voices yes to understanding these discharge orders and Rx. at tome of discharge this patient voices no concerns, needs and shows no signs of distress
== END 2025-01-14 23:20 | disposition home or self-care (01) ==
PROVIDERS: Emergency Provider Emergency Medicine
DX: R23.3 Spontaneous ecchymoses (principal); Z85.528 Personal history of other malignant neoplasm of kidney; Z90.5 Acquired absence of kidney; Z90.49 Acquired absence of other specified parts of digestive tract; F17.200 Nicotine dependence, unspecified, uncomplicated; E11.65 Type 2 diabetes mellitus with hyperglycemia; Z79.4 Long term (current) use of insulin
CPT/HCPCS: 36415; 80053; 83605; 85025; 85610; 85652; 86140; 86850; 86900; 86901; 87040; 99285; J7512